=== PATIENT | female | born 1980 | race Caucasian/White ===

== ENCOUNTER 2018-06-07 19:30 | Emergency (ER) | payer BC, SELFPAY ==
[2018-06-07] VITALS (38 sets, daily range): BP systolic 114–141; BP diastolic 67–93; PULSE 70–91; RESP 10–25; TEMP 36.7; O2SAT 95–100
[2018-06-07] MEDS: Normal Saline 1,000 ML 1000 ML IV (20:20)
[2018-06-07] MEDS: Ondansetron 4 MG/2 ML VIAL IVP (20:20)
[2018-06-07] MEDS: MORPHine 10 MG/ML VIAL 4 MG IVP (20:20)
[2018-06-07 20:36] LABS: Abs Immature Grans 0.03 k/cumm (0.0-0.09); Absolute Basophil Count 0.03 k/cumm (0.0-0.2); Absolute Eosinophil Count 0.11 k/cumm (0.0-0.7); Absolute Lymphocyte Count 2.52 k/cumm (1.2-3.4); Absolute Monocyte Count 0.72 k/cumm (0.11-0.7); Absolute Neutrophil Count 6.68 k/cumm (1.2-6.7); Basophils % 0.3; Eosinophils % 1.1; HCT 36.4 % (36.0-46.0); HGB 13.1 g/dL (12.0-15.5); Immature Grans % 0.3; Mean Corpuscular Volume 86.3 fL (80-95); Mean Platelet Volume 11.3 fL (8.0-11.0); Monocytes % 7.1; Neutrophils % 66.2; Platelet Count 264 x1000/uL (130-400); RBC 4.22 m/cumm (4.00-5.20); White Blood Cell Count 10.09 k/cumm (4.4-10.8)
[2018-06-07 20:38] LABS: Bilirubin Negative (Negative); Blood Negative (Negative); Clarity Clear; Glucose Negative (Negative); Ketones Negative (Negative); Leukocyte Esterase Negative (Negative); Nitrite Negative (Negative); Specific Gravity >= 1.030 (1.005-1.025); Urobilinogen 0.2 EU/dL (Up TO 0.2); pH 5.5 (5-8)
[2018-06-07 20:52] LABS: ALT 25 U/L (12-78); AST 17 U/L (15-37); Albumin 3.9 g/dL (3.4-5.0); Alkaline Phosphatase 77 U/L (46-116); Anion Gap 13.3 mmol/L (3-11); BUN 15 mg/dL (7-18); Bilirubin, Total 0.3 mg/dL (0.2-1.0); CO2 22.7 mmol/L (21.0-32.0); CREATININE 0.61 mg/dL (0.55-1.02); Chloride 103 mmol/L (98-107); Glucose 114 mg/dL (70-100); Lipase 135 U/L (73-393); Magnesium 1.6 mg/dL (1.8-2.4); Potassium 3.4 mmol/L (3.5-5.1); Sodium 139 mmol/L (136-145); Total Protein 7.4 g/dL (6.4-8.2)
--- NOTE | 2018-06-07 21:00 | DI.CT_ITS ---
SYMPTOMS/DIAGNOSIS: ABDOMINAL PAIN ABDOMINAL AND PELVIC CT: CT examination of the abdomen and pelvis was performed with intravenous infusion of 100 cc of Omnipaque 350. Images obtained through the lung bases are unremarkable. Liver, spleen and pancreas appear normal. Gallbladder and bile ducts are CT normal. Abdominal aorta is of normal diameter and no major vascular abnormalities seen. No abdominal or pelvic adenopathy seen. There is a small fat-containing umbilical hernia. No other abdominal wall hernia seen. Appendix is normal in appearance. No evidence of diverticulitis or bowel obstruction. Adrenals and kidneys appear normal. No evidence of urinary tract calcification or obstruction. There is an IUD in place in the uterine midline. There is a moderate quantity of free pelvic fluid, which is nonspecific. CONCLUSION: Free pelvic fluid, which is nonspecific. Consider recently ruptured ovarian cyst, pelvic ultrasound may be obtained if clinically indicated.
[2018-06-07] MEDS: Omnipaque 350 MG/ML 100 ML BTL IJ (21:03)
--- NOTE | 2018-06-07 21:10 | DI.RAD_ITS ---
SYMPTOMS/DIAGNOSIS: CHEST PAIN PA AND LATERAL CHEST: The heart is normal in size. The lungs are clear. The mediastinal structures and pleura appear intact. CONCLUSION: Normal chest.
[2018-06-07 21:31] LABS: Troponin I < 0.02 ng/mL (0.00-0.06)
--- NOTE | 2018-06-07 21:37 | DI.VRAD_ITS ---
EXAM: CT Abdomen and Pelvis With Intravenous Contrast EXAM DATE/TIME: 06/07/2018 8:02 PM CLINICAL HISTORY: 37 years old, female; Pain; Abdominal pain; Generalized; Patient HX: Abdominal pain x2 hours. TECHNIQUE: Axial computed tomography images of the abdomen and pelvis with intravenous contrast. All CT scans at this facility use at least one of these dose optimization techniques: automated exposure control; mA and/or kV adjustment per patient size (includes targeted exams where dose is matched to clinical indication); or iterative reconstruction. Coronal and sagittal reformatted images were created and reviewed. CONTRAST: 100 ml of omnipaque 350 administered intravenously. COMPARISON: No relevant prior studies available. FINDINGS: Lower thorax: No acute findings. ABDOMEN: Liver: Enlarged liver measures 21.4 cm in craniocaudal dimensions. Gallbladder and bile ducts: No calcified stones. No ductal dilation. Pancreas: Unremarkable. No ductal dilation. Spleen: Unremarkable. No splenomegaly. Adrenals: Unremarkable. No mass. Kidneys and ureters: Unremarkable. No hydronephrosis. Stomach and bowel: Unremarkable. No obstruction. No mucosal thickening. Appendix: No evidence of appendicitis. PELVIS: Bladder: Unremarkable as visualized. Reproductive: IUD in place. ABDOMEN and PELVIS: Intraperitoneal space: Small amount of ascites. Bones/joints: No acute fracture. No dislocation. Soft tissues: Unremarkable. Vasculature: No abdominal aortic aneurysm. Lymph nodes: No enlarged lymph nodes. IMPRESSION: 1. No evidence for bowel obstruction or perforation. Normal appendix. 2. No evidence for colitis or diverticulitis. 3. Small amount of pelvic fluid within physiologic range. 4. IUD in place. Dictated and Authenticated by: Mynor Johnson MD. Ordering:CARLOZ GREEN MD
--- NOTE | 2018-06-07 21:38 | DI.VRAD_ITS ---
EXAM: XR Chest, 2 Views EXAM DATE/TIME: 06/07/2018 8:40 PM CLINICAL HISTORY: 37 years old, female; Pain; Chest pain; Type not specified; Patient HX: Chest pain x2 hours. TECHNIQUE: XR of the chest, 2 views. COMPARISON: No relevant prior studies available. FINDINGS: Lungs: Unremarkable. No consolidation. Pleural space: Mild bilateral apical pleural thickening. Heart/Mediastinum: Unremarkable. No cardiomegaly. Bones/joints: Unremarkable. IMPRESSION: No infiltrates or effusions. Dictated and Authenticated by: Mynor Johnson MD. Ordering:CARLOZ GREEN MD
[2018-06-07] MEDS: Magnesium Oxide 400 MG TAB PO (21:42)
--- NOTE | 2018-06-07 21:42 | ED.GENADUL_ITS ---
Discharge Plan Disposition Patient Disposition: HOME Condition: Stable Discharge Details Chief Complaint: Chest Pain Primary Care Provider: Angelic Silva ED Provider: Diomedes Reardon Home Meds and New Rx's Prescriptions: Continue bupropion HCl [Wellbutrin] 100 MG tablet 100 mg PO DAILY RF: 0 diazepam 2 MG tablet 2 mg PO Q8H PRN (Reason: Dizziness) Qty: 6 RF: 0 Discharge Instructions Instructions: Chest Pain (ED), Abdominal Pain (ED) Additional Instructions: Return immediately to the emergency department for any new or significant worsening of symptoms otherwise take your medication as prescribed and follow- up with your primary care provider for reassessment. Stand Alone Forms: Work Release Referrals: Angelic Silva [Primary Care Provider] - 1 week Discharge Data Discharge Date/Time-TO BE ENTERED AT DEPARTURE: 06/08/18 00:01 Medical Decision Making Patient presenting to the emergency department chief complaint of chest pain that started around 10 AM. She states that she has been under significant emotional work and financial stressors causing her to feel worsening depression. Today though the chest pain has been substernal with a little bit of GI upset. She denies any specific emotional circumstance today that is changed. Patient denies any homicidal or suicidal ideations. Patient appears slightly anxious but otherwise comfortable and in no acute distress. Physical exam does show some lower abdominal tenderness otherwise benign cardiac and respiratory examination and no other acute findings noted. Plan to check labs, EKG, and chest x-ray and abdominal CT scan due to abdominal tenderness and GI upset. Patient given morphine, Zofran, and IV fluids. There is concerned that this is more psychological or emotional in base given the circumstances but plan on ruling out ACS, pneumothorax, any emergent GI pathology. Review of initial labs show mild hypomagnesemia, otherwise nondiagnostic findings, chest x-ray shows no infiltrates or effusions with mild bilateral apical pleural thickening CT of the abdomen shows no evidence of bowel obstruction or perforation normal appendix no evidence for colitis or diverticulitis otherwise no acute finding. Patient reassessed and shows continued discomfort so GI cocktail was given along with p.o. magnesium. Plan to check d-dimer due to patient having IUD but have low suspicion of PE given stable vital signs with no hypoxia no tachycardia no evidence of shortness of breath also plan on checking second troponin. D-dimer was within normal limits and troponin was negative. Patient continued to have discomfort. Patient fully reassessed and did have some diffuse paraspinal tenderness to the back and somewhat to the chest wall but minimal anterior chest wall pain. 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 Due to possible nature of this being muscular patient given ketorolac. Otherwise I feel that there are no current emergent findings that need any further evaluation and that patient should rest over the next couple days, take over-the -counter medication as needed for discomfort, and follow-up with primary care as needed for reassessment if not improving. After discussion of diagnosis and plan of care patient is no further needs, questions, or concerns and states clear understanding to return to the emergency department for any worsening symptoms. ECG Data Attestation: I personally reviewed and interpreted this ECG (s) as follows: Interpretation: EKG shows rate of 75, normal axis, sinus rhythm, no ST elevation or depression noted. EKG otherwise nondiagnostic. EKG reviewed with Dr. Felix Mcnally. HPI General Mode of arrival: ambulatory . Date/Time Provider Initiated Documentation: 06/07/18 19:43 . Limitations to Documentation: no limitations . Information obtained by: patient and RN notes reviewed . History of Present Illness 37 year old F presents to the emergency department with the chief complaint of Chest pain, described as moderate, with intensity rated at 7. Quality is described as aching and other (pressure), and is localized to the chest and abdomen. Patient started experiencing this hour(s) (10) and it has been constant. No relieving factors improve symptom(s), No exacerbating factors reported . Patient did receive the following treatments prior to arrival, none Related Data Home Medications Medication Instructions Recorded Confirmed bupropion HCl [Wellbutrin] 100 mg PO DAILY 09/26/17 09/26/17 diazepam 2 mg PO Q8H PRN #6 tablet 09/26/17 Previous Rx's Medication Instructions Recorded diazepam 2 mg PO Q8H PRN #6 tablet 09/26/17 Allergies Allergy/AdvReac Type Severity Reaction Status Date / Time No Known Allergies Allergy Unverified 09/26/17 11:32 General Stated Complaint: Chest Pain SAMARA: 3 Review of Systems Constitutional Denies chills, Denies fever(s), Denies malaise and Reports poor appetite Cardiovascular Reports as per HPI, Reports chest pain, Denies chest pain with activity, Denies syncope, Denies irregular heart rhythm, Denies palpitations and Denies dyspnea Respiratory Denies dyspnea Gastrointestinal Reports abdominal pain, Reports nausea and Denies vomiting Neurologic Denies syncope Psychiatric Reports anxiety, Reports depression, Denies homicidal ideation and Denies suicidal ideation Endocrine Denies palpitations PFSH Social History Smoking/Tobacco Use Status: Never Social History Smoking/Tobacco Use Status: Never Exam Const General: cooperative, healthy appearing, comfortable, no acute distress, anxious , not diaphoretic and not ill appearing Nutritional Appearance: average body habitus Orientation: alert, awake and oriented x3 Limitations: mental status not altered Neck Neck: normal visual inspection, full ROM, trachea midline, supple and no anterior neck swelling Thyroid: thyroid normal Carotids: normal carotid upstroke and no bruits Chest Chest: normal inspection of the chest Resp Effort & Inspection: normal respiratory effort and able to speak in complete sentences Auscultation: clear to auscultation bilaterally Cardio Jugular venous pressure: no JVD Palpation: normal PMI Rate: regular rate Rhythm: regular rhythm Heart Sounds: S1 normal, S2 normal, no click, no gallops, no murmurs and no rubs Bruits: no abdominal aortic bruits and no carotid bruits Pulses: radial pulses present bilaterally 2+ GI Inspection: normal to inspection Palpation: soft, no aortic enlargement, no pulsatile masses and tender in the LLQ and in the RLQ; not at McBurney's point and Martin's sign negative Auscultation: normal bowel sounds Back/Spine/Pelvis Back: no CVA tenderness Skin General skin exam: no rashes or lesions noted Neuro General: alert, awake, oriented x3, tone normal and moves all extremities Psych Appearance: grossly normal Mental Status: mental status grossly normal Speech and Movement: speech and movement normal Mood: anxious mood (mild) Attitude: cooperative Thought Process: normal Thought Content: no homicidality and suicidality Insight: insight good Judgment: judgment good Course Vital Signs Temperature 36.7 C 06/07/18 19:45 Pulse 74 06/07/18 19:45 Respiratory Rate 24 06/07/18 19:45 Blood Pressure 135/93 H 06/07/18 19:45 Pulse Oximetry 97 06/07/18 19:45 Temperature 36.7 C 06/07/18 19:45 Temperature Source Skin 06/07/18 19:45 Pulse 74 06/07/18 19:45 Respiratory Rate 24 06/07/18 19:45 Respiratory Effort 06/07/18 21:08 Blood Pressure 135/93 H 06/07/18 19:45 Blood Pressure Position Sitting 06/07/18 19:45 Pulse Oximetry 97 06/07/18 19:45 Oxygen Delivery Method Room Air 06/07/18 19:45 Oxygen Flow Rate 0 06/07/18 19:45 Lab/Test Results Lab/Test Results: Laboratory Tests Range/Units 06/07/18 06/07/18 06/07/18 19:48 19:48 20:30 WBC (4.4-10.8) k/cumm 10.09 RBC (4.00-5.20) m/cumm 4.22 Hgb (12.0-15.5) g/dL 13.1 Hct (36.0-46.0) % 36.4 MCV (80-95) fL 86.3 MCH (27.0-33.0) pg 31.0 MCHC (32.0-36.0) g/dL 36.0 RDW (11.7-14.6) % 13.0 Plt Count (130-400) x1000/uL 264 MPV (8.0-11.0) fL 11.3 H Immature Gran % 0.3 Neutrophils % 66.2 Lymphocytes % 25.0 Monocytes % 7.1 Eosinophils % 1.1 Basophils % 0.3 Absolute Neutrophils (1.2-6.7) k/cumm 6.68 Absolute Lymphocytes (1.2-3.4) k/cumm 2.52 Absolute Monocytes (0.11-0.7) k/cumm 0.72 H Absolute Eosinophils (0.0-0.7) k/cumm 0.11 Absolute Basophils (0.0-0.2) k/cumm 0.03 Sodium (136-145) mmol/L 139 Potassium (3.5-5.1) mmol/L 3.4 L Chloride (98-107) mmol/L 103 Carbon Dioxide (21.0-32.0) mmol/L 22.7 Anion Gap (3-11) mmol/L 13.3 H BUN (7-18) mg/dL 15 Creatinine (0.55-1.02) mg/dL 0.61 Estimated GFR/1.73 m2 (mL/min/1.73m2) >= 60.00 Glucose (70-100) mg/dL 114 H Calcium (8.5-10.1) mg/dL 9.0 Magnesium (1.8-2.4) mg/dL 1.6 L Total Bilirubin (0.2-1.0) mg/dL 0.3 AST (15-37) U/L 17 ALT (12-78) U/L 25 Alkaline Phosphatase (46-116) U/L 77 Troponin I (0.00-0.06) ng/mL < 0.02 Total Protein (6.4-8.2) g/dL 7.4 Albumin (3.4-5.0) g/dL 3.9 Lipase (73-393) U/L 135 Urine Color (Yellow) Yellow Urine Clarity Clear Urine pH (5-8) 5.5 Ur Specific [place] (1.005-1.025) >= 1.030 H Urine Protein (Negative) mg/dL Negative Urine Ketones (Negative) mg/dL Negative Urine Blood (Negative) Negative Urine Nitrite (Negative) Negative Urine Bilirubin (Negative) Negative Urine Urobilinogen (Up TO 0.2) EU/dL 0.2 Ur Leukocyte Esterase (Negative) Negative Urine Glucose (Negative) mg/dL Negative POC- Test(urine) Negative
[2018-06-07 22:49] LABS: D-Dimer 177 ng/mlFEU (<500)
[2018-06-07] MEDS: Ketorolac 30 MG/ML VIAL IVP (23:12)
[2018-06-07 23:34] LABS: Troponin I < 0.02 ng/mL (0.00-0.06)
== END 2018-06-08 00:01 | disposition home or self-care (01) ==
PROVIDERS: Emergency Provider Nurse Practitioner Family; PCP Nurse Practitioner Family
DX: R07.9 Chest pain, unspecified (principal)
CPT/HCPCS: 36415; 80053; 83690; 93005; 96361; 96374; 96375; 99285; 71046; 74177; 81003; 83735; 84484; 85025; 85379; 93010; J1885; J2270; J2405; J3490

== ENCOUNTER 2018-06-13 18:14 | Outpatient (REF) | payer BC, SELFPAY | END 2018-06-13 18:34 | LOC: NCHCN 18:14 | PROVIDERS: PCP Nurse Practitioner Family; Visit Provider Nurse Practitioner | DX: E83.42 Hypomagnesemia (principal) | CPT/HCPCS: 83735 ==

== ENCOUNTER 2018-06-26 01:47 | Outpatient (CLI) | payer BC, SELFPAY ==
--- NOTE | 2018-06-26 14:00 | DI.US_ITS ---
SYMPTOMS/DIAGNOSIS: ABD PAIN GENERALIZED, R10.84, HYPOMAGNESEMIA, E83.42 PELVIC ULTRASOUND: A transabdominal and transvaginal examination was carried out. The uterus measures 7.2 cm in length, 3.6 cm in height and 5.0 cm in width with an endometrial stripe thickness of 4.5 mm. An intrauterine IUD is noted in good position. The right ovary measures 3.3 x 1.5 x 2.6 cm. The left ovary 2.5 x 1.7 x 1.9 cm. Bilateral follicular cysts are demonstrated. In addition to the above findings note is made of microcalcifications in the endometrium. SUMMARY: An IUD is in good position in the endometrial cavity. Tiny calcifications are identified in the endometrium. The examination is otherwise unremarkable.
== END 2018-06-26 02:07 ==
PROVIDERS: PCP Nurse Practitioner Family; Visit Provider Nurse Practitioner
DX: R10.84 Generalized abdominal pain (principal); E83.42 Hypomagnesemia; N83.01 Follicular cyst of right ovary; N83.02 Follicular cyst of left ovary; Z30.431 Encounter for routine checking of intrauterine contraceptive device
CPT/HCPCS: 76830; 76856

== ENCOUNTER 2018-07-19 18:04 | Outpatient (REF) | payer BC, SELFPAY ==
--- NOTE | 2018-07-19 16:00 | PAPFT_PTH ---
PATIENT: Yolette Tellez LOC: [facility] U#:[id number] AGE/SX: 37/F ROOM: RE07/19/[address]: Beatriz Bose : 1980 BED: DIS: 07/19/2018 SPEC #: [id number] RECD: 07/20/18 13:06 STATUS: AMIRA REYen #: [id number] SHAYNA: 07/19/18 16:[address]: Beatriz Bose DEPT: [facility] Cytology RECD BY: Yenifer Torres ENTERED: 07/20/18 13:06 SP TYPE: PAPFT OTHR DR: Angelic Silva Tissues: 1 - CX/ENDOCX FOR PAP SMEARS Procedures: PAP THIN PREP/UVM Screening HPV DNA PROBE Comments: [id number] (CHLAMYDIA/GC)
[2018-07-23 13:36] LABS: Chlamydia Result Negative; GC Result Negative; Specimen Description SEE COMMENTS
== END 2018-07-19 18:24 ==
LOC: NCHCN 18:04
PROVIDERS: PCP Nurse Practitioner Family; Visit Provider Nurse Practitioner
DX: Z12.4 Encounter for screening for malignant neoplasm of cervix (principal); Z11.51 Encounter for screening for human papillomavirus (HPV); Z11.3 Encounter for screening for infections with a predominantly sexual mode of transmission
CPT/HCPCS: 87491; 87591; 88142; 87624

== ENCOUNTER 2018-09-06 15:05 | Outpatient (REF) | payer BC, SELFPAY ==
[2018-09-06 21:13] LABS: Abs Immature Grans 0.02 k/cumm (0.0-0.09); Absolute Basophil Count 0.03 k/cumm (0.0-0.2); Absolute Eosinophil Count 0.09 k/cumm (0.0-0.7); Absolute Monocyte Count 0.63 k/cumm (0.11-0.7); Absolute Neutrophil Count 3.44 k/cumm (1.2-6.7); Basophils % 0.5; Eosinophils % 1.5; HCT 38.7 % (36.0-46.0); HGB 13.4 g/dL (12.0-15.5); Immature Grans % 0.3; Lymphocytes % 28.8; Mean Corp. HGB Concentration 34.6 g/dL (32.0-36.0); Mean Corpuscular Hemoglobin 30.7 pg (27.0-33.0); Mean Corpuscular Volume 88.6 fL (80-95); Mean Platelet Volume 11.4 fL (8.0-11.0); Monocytes % 10.7; Neutrophils % 58.2; Platelet Count 258 x1000/uL (130-400); RBC 4.37 m/cumm (4.00-5.20); RBC Distribution Width 13.4 % (11.7-14.6); White Blood Cell Count 5.91 k/cumm (4.4-10.8)
[2018-09-06 21:42] LABS: Iron 83 ug/dL (50-175); Total Iron Binding Capacity 336 ug/dL (250-450); Transferrin Sat 25 % (15-50)
[2018-09-06 21:57] LABS: ESR 14 MM/HR (0-20)
[2018-09-06 22:14] LABS: BUN 16 mg/dL (7-18); CREATININE 0.51 mg/dL (0.55-1.02); Chloride 105 mmol/L (98-107); Cholesterol 181 mg/dL (50-200); Ferritin 84 ng/mL (8-388); Glucose 83 mg/dL (70-100); HDL Cholesterol 40 mg/dL (40-60); LDL CHOLESTEROL 119 mg/dL (<100); Magnesium 2.1 mg/dL (1.8-2.4); Potassium 3.8 mmol/L (3.5-5.1); Sodium 143 mmol/L (136-145); TSH (W/Ref FT4) 1.43 uIU/mL (0.358-3.74); Triglyceride 140 mg/dL (30-150); Vitamin B12 547 pg/mL (193-986)
[2018-09-06 22:29] LABS: C-Reactive Protein 0.35 mg/dL (0.0-0.3)
[2018-09-10 11:32] LABS: ANA Interpretation Negative (NEGAT)
[2018-09-10 11:56] LABS: Rheumatoid Factor <8 IU/mL (<12.5)
== END 2018-09-06 15:25 ==
LOC: NCHCN 15:05
PROVIDERS: PCP Nurse Practitioner Family; Visit Provider Nurse Practitioner Family
DX: Z00.00 Encounter for general adult medical examination without abnormal findings (principal); N92.6 Irregular menstruation, unspecified; R25.2 Cramp and spasm; M25.50 Pain in unspecified joint; K59.00 Constipation, unspecified; M54.9 Dorsalgia, unspecified; G60.8 Other hereditary and idiopathic neuropathies; R53.83 Other fatigue
CPT/HCPCS: 80048; 80061; 83721; 85652; 82607; 82728; 83036; 83540; 83550; 83735; 84443; 85025; 86038; 86140; 86431

== ENCOUNTER 2019-03-12 17:09 | Outpatient (REF) | payer BC, SELFPAY ==
[2019-03-12 22:12] LABS: Anion Gap 8.9 mmol/L (3-11); BUN 15 mg/dL (7-18); C-Reactive Protein 0.29 mg/dL (0.0-0.3); CO2 28.1 mmol/L (21.0-32.0); CREATININE 0.68 mg/dL (0.55-1.02); Calcium 9.1 mg/dL (8.5-10.1); Chloride 104 mmol/L (98-107); Glucose 86 mg/dL (70-100); Magnesium 2.1 mg/dL (1.8-2.4); Potassium 3.7 mmol/L (3.5-5.1); Sodium 141 mmol/L (136-145); TSH (W/Ref FT4) 2.44 uIU/mL (0.36-3.74)
[2019-03-12 22:49] LABS: ESR 21 mm/hr (0-20)
[2019-03-14 10:34] LABS: Lyme Ab w Rflx to Lyme Confirm Negative
[2019-03-14 11:24] LABS: Rheumatoid Factor <8 IU/mL (<12.5)
[2019-03-14 14:46] LABS: ANA Interpretation Negative (NEGAT)
[2019-03-14 19:05] LABS: Creatine Kinase 184 U/L (26 - 192)
[2019-03-16 23:52] LABS: Anaplasma phagocytophilum Negative (Negative); B. miyamotoi PCR Negative (Negative); Babesia divergens/MO-1 Negative (Negative); Babesia duncani Negative (Negative); Babesia microti Negative (Negative); Ehrlichia chaffeensis Negative (Negative); Ehrlichia ewingii/canis Negative (Negative); Ehrlichia muris eauclairensis Negative (Negative)
[2019-03-19 15:43] LABS: BB Fraction 0 % (0); MB Fraction 0 % (0)
== END 2019-03-12 17:29 ==
LOC: NCHCN 17:09
PROVIDERS: PCP Nurse Practitioner Family; Visit Provider Nurse Practitioner Family
DX: G47.33 Obstructive sleep apnea (adult) (pediatric) (principal); R51 Headache; R53.83 Other fatigue; G60.8 Other hereditary and idiopathic neuropathies; R25.2 Cramp and spasm; M25.50 Pain in unspecified joint; F41.8 Other specified anxiety disorders; J34.89 Other specified disorders of nose and nasal sinuses
CPT/HCPCS: 80048; 85652; 87798; 82550; 82552; 83735; 84443; 86038; 86140; 86431; 86618

== ENCOUNTER 2019-04-20 18:33 | Emergency (ER) | payer BC, SELFPAY ==
[2019-04-20 18:43] VITALS: BP 128/80; PULSE 70; RESP 18; TEMP 36.7; O2SAT 99
--- NOTE | 2019-04-20 19:38 | ED.GENADUL_ITS ---
Discharge Plan Disposition Patient Disposition: HOME Discharge Details Chief Complaint: EXHIBIT CLEANER Clinical Impression: Abscess of right genital labia Primary Care Provider: Angelic Silva ED Provider: Nicolas Alvarado Home Meds and New Rx's Prescriptions: No Action bupropion HCl [Wellbutrin] 100 MG tablet 100 mg PO DAILY RF: 0 diazepam 2 MG tablet 2 mg PO Q8H PRN (Reason: Dizziness) Qty: 6 RF: 0 Discharge Instructions Instructions: Abscess (ED) Additional Instructions: Incision and drainage of the fluid in your abscess performed in the emergency department. Small amount of wound packing placed. Continue to apply warm compresses to the area. You may wash with warm soap and water. Return to the emergency department in 2 days for packing removal and reevaluation. Referrals: Nicolas Alvarado PA [Emergency Provider] - 2 days (for wound evaluation) Discharge Data Discharge Date/Time-TO BE ENTERED AT DEPARTURE: 04/20/19 20:25 Medical Decision Making This is a nontoxic-appearing 38-year-old female presenting to the emergency department with a cyst/abscess along the right superior labia. Tenderness to palpation noted on exam. Pointing also noted. I&D performed with mild amount of purulent discharge expressed. Patient tolerated the procedure without any significant complications. Unable to place a significant amount of packing based on the size of the abscess. Plan is to have her return to the emergency department 48 hours for packing removal and wound evaluation. HPI General Date/Time Provider Initiated Documentation: 04/20/19 18:42 . HPI Narrative: Patient is a 38-year-old female with no significant past medical history who presents to the emergency department with a painful swollen lesion on her right labia. She states that symptoms started 1 to 2 days ago. She denies any fevers. No abdominal pain. No vaginal discharge or bleeding. Related Data Home Medications Medication Instructions Recorded Confirmed bupropion HCl [Wellbutrin] 100 mg PO DAILY 09/26/17 04/20/19 diazepam 2 mg PO Q8H PRN #6 tablet 09/26/17 04/20/19 Previous Rx's Medication Instructions Recorded diazepam 2 mg PO Q8H PRN #6 tablet 09/26/17 Allergies Allergy/AdvReac Type Severity Reaction Status Date / Time No Known Allergies Allergy Unverified 04/20/19 18:45 General Stated Complaint: RashLesion SAMARA: 4 Review of Systems Constitutional Constitutional: Denies chills and Denies fever(s) Gastrointestinal Gastrointestinal: Denies abdominal pain and Denies vomiting Genitourinary Genitourinary: Denies abnormal vaginal bleeding, Denies genital pruritis, Reports genital lesions, Denies dysuria, Denies pelvic pain and Denies vaginal discharge [facility] Social History Smoking/Tobacco Use Status: Never Alcohol Intake: never Drug use: Never Substance use type: does not use Do you feel safe at home: Yes Do you feel safe in your relationship?: Yes Exam Const General: cooperative, healthy appearing, comfortable and no acute distress Resp Effort & Inspection: normal respiratory effort GI Inspection: normal to inspection Palpation: soft and nontender External Female Exam: other (Roughly 2 to 3 cm fluctuant abscess along the superior right labia. ) Course Vital Signs Vital signs: Vital Signs Temperature 36.7 C 04/20/19 18:43 Pulse 70 04/20/19 18:43 Respiratory Rate 18 04/20/19 18:43 Blood Pressure 128/80 04/20/19 18:43 Pulse Oximetry 99 04/20/19 18:43 Temperature 36.7 C 04/20/19 18:43 Temperature Source Skin 04/20/19 18:43 Pulse 70 04/20/19 18:43 Respiratory Rate 18 04/20/19 18:43 Respiratory Effort 04/20/19 18:50 Blood Pressure 128/80 04/20/19 18:43 Blood Pressure Position Sitting 04/20/19 18:43 Pulse Oximetry 99 04/20/19 18:43 Pain Level 10 04/20/19 18:43 Procedures Abscess I/D Site: Other (right labia) Side (if applicable): Right Local Anesthetic: Lidocaine 2% Amount of anesthesia used (mL): 3 Technique: Incised with #11 Blade Amount of fluid expressed (mL): 3 Irrigation: No Packing used?: Iodoform Complications: Bleeding
--- NOTE | 2019-04-20 19:57 | NUR.NOTE ---
Nursing Note: assist provider with external vaginal exam and I&D of abcess. pt tolerated well.
== END 2019-04-20 20:25 | disposition home or self-care (01) ==
PROVIDERS: Emergency Provider Physician Assistant; PCP Nurse Practitioner Family
DX: N76.4 Abscess of vulva (principal)
CPT/HCPCS: 10061

== ENCOUNTER 2019-07-18 14:04 | Emergency (ER) | payer BC, SELFPAY ==
[2019-07-18 14:08] VITALS: BP 136/89; PULSE 78; RESP 20; TEMP 36.7; O2SAT 100
--- NOTE | 2019-07-18 14:26 | W.ED.GENAD ---
Discharge Plan Disposition Patient Disposition: HOME Condition: Stable Discharge Details Chief Complaint: PsychEval Clinical Impression: Depression Primary Care Provider: Angelic Silva ED Provider: Elliott Whitaker Home Meds and New Rx's Prescriptions: Continued bupropion HCl [Wellbutrin] 100 MG tablet 100 mg PO DAILY RF: 0 diazepam 2 MG tablet 2 mg PO Q8H PRN (Reason: Dizziness) Qty: 6 RF: 0 Discharge Instructions Instructions: Depression (ED) Medical Decision Making 38 yo female with hx of depression who has had increased depression over the past few months with vague SI without a plan and no attempts to harm her self. Denies alcohol or drug use. She is caox4 and has clear speech, normal gait, no neuro deficits. Has no findings on exam or hx to suggest underlying medical process such as infection or endocrine process as cause of her depression. Will have mental health evaluate, medically cleared to see mental health mental health evaluated and feels she is safe for d/c, pt and family is comfortable with this plan. Differential Diagnosis Differential Diagnosis: depression, si Lab Data Lab results reviewed: Yes I reviewed the patient's lab results. HPI General Mode of arrival: ambulatory. Date/Time Provider Initiated Documentation: 07/18/19 14:13. Limitations to Documentation: no limitations. Information obtained by: patient. History of Present Illness 38 year old F presents to the emergency department with the chief complaint of depression, described as moderate, and it has been constant. No relieving factors improve symptom(s), No exacerbating factors reported . Patient did receive the following treatments prior to arrival, none Related Data Home Medications Medication Instructions Recorded Confirmed bupropion HCl [Wellbutrin] 100 mg PO DAILY 09/26/17 07/18/19 diazepam 2 mg PO Q8H PRN #6 tablet 09/26/17 04/20/19 Previous Rx's Medication Instructions Recorded diazepam 2 mg PO Q8H PRN #6 tablet 09/26/17 Allergies Allergy/AdvReac Type Severity Reaction Status Date / Time No Known Allergies Allergy Unverified 07/18/19 14:11 General Stated Complaint: PsychEval SAMARA: 2 Review of Systems All systems reviewed & are unremarkable except as noted in HPI and below Constitutional Constitutional: Denies chills, Denies fever(s) and Denies weakness Cardiovascular Cardiovascular: Denies chest pain and Denies dyspnea Respiratory Respiratory: Denies cough and Denies dyspnea Gastrointestinal Gastrointestinal: Denies abdominal pain, Denies nausea and Denies vomiting Musculoskeletal Musculoskeletal: Denies joint swelling Neurologic Neurologic: Denies weakness [facility] Social History Smoking/Tobacco Use Status: Never Alcohol Intake: never Drug use: Never Substance use type: does not use Do you feel safe at home: Yes Do you feel safe in your relationship?: Yes Exam Const General: no acute distress Orientation: alert HENMT Head: normal to inspection Ears: external ears normal General nose exam: external nose normal Mouth: moist mucous membranes Eyes General: appearance normal, both eyes and all related structures Neck Neck: normal visual inspection Resp Effort & Inspection: normal respiratory effort and able to speak in complete sentences Cardio Rate: regular rate Skin General skin exam: no rashes or lesions noted Neuro General: alert and oriented x3 Extrem General: normal to inspection Psych Mental Status: mental status grossly normal Course Vital Signs Vital signs: Vital Signs Temperature 36.7 C 07/18/19 14:08 Pulse 78 07/18/19 14:08 Respiratory Rate 07/18/19 14:08 Blood Pressure 136/89 07/18/19 14:08 Pulse Oximetry 100 07/18/19 14:08 Temperature 36.7 C 07/18/19 14:08 Temperature Source Temporal Artery Scan 07/18/19 14:08 Pulse 78 07/18/19 14:08 Respiratory Rate 07/18/19 14:08 Respiratory Effort Non-Labored 07/18/19 14:12 Blood Pressure 136/89 07/18/19 14:08 Blood Pressure Position Sitting 07/18/19 14:08 Pulse Oximetry 100 07/18/19 14:08 Oxygen Delivery Method Room Air 07/18/19 14:08 Oxygen Flow Rate 0 07/18/19 14:08 Pain Level 8 07/18/19 14:08
[2019-07-18 14:45] LABS: Abs Immature Grans 0.03 k/cumm (0.0-0.09); Absolute Basophil Count 0.02 k/cumm (0.0-0.2); Absolute Eosinophil Count 0.03 k/cumm (0.0-0.7); Absolute Lymphocyte Count 1.18 k/cumm (1.2-3.4); Absolute Monocyte Count 0.57 k/cumm (0.11-0.7); Absolute Neutrophil Count 7.94 k/cumm (1.2-6.7); Basophils % 0.2; Eosinophils % 0.3; HCT 38.6 % (36.0-46.0); HGB 13.6 g/dL (12.0-15.5); Immature Grans % 0.3 %; Lymphocytes % 12.1; Mean Corp. HGB Concentration 35.2 g/dL (32.0-36.0); Mean Corpuscular Hemoglobin 30.9 pg (27.0-33.0); Mean Corpuscular Volume 87.7 fL (80-95); Mean Platelet Volume 10.2 fL (8.0-11.0); Monocytes % 5.8; Neutrophils % 81.3; Platelet Count 280 x1000/uL (130-400); RBC Distribution Width 12.9 % (11.7-14.6); White Blood Cell Count 9.77 k/cumm (4.4-10.8)
[2019-07-18 14:51] LABS: Bilirubin Negative (Negative); Blood Negative (Negative); Clarity Clear (Clear); Glucose Negative (Negative); Ketones Negative (Negative); Leukocyte Esterase Negative (Negative); Nitrite Negative (Negative); Urobilinogen 0.2 EU/dL (Up TO 0.2); pH 7.5 (5-8)
[2019-07-18 14:56] LABS: ALT 22 U/L (14-59); AST 18 U/L (15-37); Albumin 4.1 g/dL (3.4-5.0); Alkaline Phosphatase 76 U/L (46-116); Anion Gap 8.9 mmol/L (3-11); BUN 12 mg/dL (7-18); Bilirubin, Total 0.4 mg/dL (0.2-1.0); CO2 29.1 mmol/L (21.0-32.0); CREATININE 0.49 mg/dL (0.55-1.02); Calcium 9.3 mg/dL (8.5-10.1); Chloride 105 mmol/L (98-107); Glucose 103 mg/dL (74-106); Potassium 3.7 mmol/L (3.5-5.1); Sodium 143 mmol/L (136-145); Total Protein 7.6 g/dL (6.4-8.2)
[2019-07-18 15:06] LABS: TSH (W/Ref FT4) 1.41 uIU/mL (0.36-3.74)
[2019-07-18 15:14] LABS: ETHANOL BLOOD < 3.0 mg/dL (<3); Salicylate < 2.8 mg/dL (2.8-20.0)
[2019-07-18 15:18] LABS: *AMPHETAMINES SCREEN URINE Negative (Negative); *BARBITURATES SCREEN URINE Negative (Negative); *BENZODIAZEPINES SCREEN URINE Negative (Negative); Cannabinoids THC Negative (Negative); Cocaine Screen,Urine Negative (Negative); METHADONE URINE SCREEN Negative (Negative); OPIATES URINE SCREEN Negative (Negative)
[2019-07-18 15:20] LABS: Acetaminophen < 2 ug/mL (10-30)
[2019-07-18 15:44] LABS: Tricyclic Antidepressants Negative (Negative)
--- NOTE | 2019-07-18 16:42 | NUR.NOTE ---
1630-[facility] cancelled by Dr Whitaker Nursing Note:
[2019-07-18] MEDS: Acetaminophen 500 MG TAB 1000 MG PO (17:00)
--- NOTE | 2019-07-18 17:18 | NUR.NOTE ---
patient received discharge and follow up instruction, patient discharged home with family Nursing Note:
--- NOTE | 2019-07-18 17:32 | PDOC.MHCN ---
Date of service: 07/18/19 Time of Service: 17:32 Mental Health Crisis Note Presenting Issue How did you arrive at the ED and why did you come: Hernan arrived to the ER by herself or possibly with her for evaluation. Precipitating Factors E stated that she is having SI but denied plan stating there are many ways to do it but not that I would do. Disposition BEHAVIOR: Hernan is cooperative and engaged in the assessment. She is a non behavior Pt. E is very tearful when her family arrive in her room. EYE CONTACT: Eye contact is normal and tearful at times. MOOD: E appears stressed and depressed. AFFECT: Her affect is normal considering all that shse is going through. APPETITE: E reports that she is overeating. SLEEP(trouble falling/staying asleep: E reported poor sleep. Plan Hernan does not meet criteria for hospitalization so will go home with her parents to stay with her. I will do an in house referral for support in accessing resources. She will outreach should her SI change or she just needs someone to talk to. She will continue with her PCP, blood bank specialist, and therapist. Provisional Diagnosis Adjustment d/o unspecified. Signature Clinician's Name/Title: Kelli Winters MS Emergency Services Clinician
== END 2019-07-18 17:18 | disposition home or self-care (01) ==
PROVIDERS: Emergency Provider Emergency Medicine; PCP Nurse Practitioner Family
DX: F32.9 Major depressive disorder, single episode, unspecified (principal); R45.851 Suicidal ideations
CPT/HCPCS: 36415; 80053; 80307; 81025; 99283; 80320; 80329; 81003; 84443; 85025

== ENCOUNTER 2020-07-06 15:53 | Outpatient (REF) | payer BC, SELFPAY ==
--- OUTSIDE RECORDS SUMMARY | 2020-07-06 15:56 | XMS_ITS ---
:1980 Author Care Team Providers Name Role Phone ERIN H [facility] LIAISON Primary Care Provider [phone] [facility] MEDICAL RECORDS Primary Care Provider [phone] KATHY POWERS MD Neurologist [phone] Allergies Code Code System Name Reaction Severity Status Onset NKDA ? Medications Name Status Start Date Stop Date ? ? bupropion HCl 150 mg tablet,12 hr sustained-release(smoking dete rrent) Active ? Not available Take 1 tablet every day by oral route. Claritin 10 mg tablet Completed ? 08/19/2019 Take 1 tablet every day by oral route. escitalopram 20 mg tablet Active ? Not av ailable Take 1 tablet every day by oral route. Flonase Allergy Relief 50 mcg/actuation nasal spray,suspension A ctive ? Not available [place] 1 spray twice a day by intranasal route. Glucosamine 1500 Complex 500 mg-400 mg capsule Active ? Not available Take 1 capsule every day by oral route. loratadine 10 mg capsule Active ? Not daniel ilable Take by oral route. Metamucil 0.52 gram capsule Active ? Not available Take 1 capsule every day by oral route. Miralax 17 gram oral powder packet Completed ? 08/19/2019 Take 1 packet every day by oral route. Mirena 20 mcg/24 hours (6 yrs) 52 mg intrauterine device Active ? Not available Take by intrauterine route. montelukast 10 mg tablet Active ? Not daniel ilable Take 1 tablet every day by oral route. multivitamin Active ? Not available 1 tab daily omeprazole 20 mg delayed release,disintegrating tablet Active ? Not available Take by oral route. Vitamin D3 25 mcg (1,000 unit) tablet Active ? Not available Take 1 tablet every day by oral route. water (bulk) liquid Active ? Not availabl e Distilled water for CPAP machine. Dispense 3 gallons per month zolpidem 5 mg tablet Completed ? 08/19/2019 Take 1-2 AIMEE for sleep study PRN Problems Name Status Onset Date Source ? Mixed Anxiety and Depressive Disorder Active 10/26/2018 ? Congestion of Nasal Sinus Active 10/26/2018 ? Constipation Active 10/26/2018 ? Irregular Periods Active 10/26/2018 ? Chronic Back Pain Active 10/26/2018 ? Fatigue Active 10/26/2018 ? Headache Active 10/26/2018 ? Family History of Diabetes Mellitus Active 10/26/2018 ? 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 Snoring Active 11/01/2018 ? Hypersomnia Active 02/21/2019 ? Obstructive Sleep Apnea Syndrome Active ? ? Procedures Date Name Performed by ? 11/01/2018 Polysomnogram Information not avai lable 11/05/2019 Multiple Sleep Latency Information not a vailable Results Lab Results Date Name Specimen Result Interpretation Description Value Range Status Address ? 05/24/2020 Drug UR ? Thc negative neg (50 Final [place] Screen, NG/mL NG/mL) Hospital Lab Urine NG/mL (Internal) : [address] ? ? UR ? Pcp negative neg (25 Final [place] NG/mL) Hospital L ab (Internal) : [address] ? ? UR ? Alan negative neg (150 Final [place] NG/mL) Hospital L ab (Internal) : [address] ? ? UR ? Met negative neg (500 Final [place] NG/mL) Hospital L ab (Internal) : [address] ? ? UR ? Opi negative neg (100 Final [place] NG/mL) Hospital L ab (Internal) : [address] ? ? UR ? Amp negative neg (500 Final [place] NG/mL) Hospital L ab (Internal) : [address] ? ? UR ? Bzo negative neg (150 Final [place] NG/mL) Hospital L ab (Internal) : [address] ? ? UR ? Tca negative neg (300 Final [place] NG/mL) Hospital L ab (Internal) : [address] ? ? UR ? Mtd negative neg (200 Final [place] NG/mL) Hospital L ab (Internal) : [address] ? ? UR ? Bar negative neg (200 Final [place] NG/mL) Hospital L ab (Internal) : [address] ? ? UR ? Oxy negative neg (100 Final [place] NG/mL) [facility] ab (Internal) : [address] ? ? UR ? Ppx negative neg (300 Final [place] NG/mL) [facility] (Internal) : [address] ? ? UR ? Bup negative neg (10 Final [place] NG/mL) [facility] (Internal) : [address] Past Encounters 11/05/2019 Obstructive Sleep Apnea Syndrome; Hypers omnia Radha Chanel, INSPECTOR FIREARMS: [address] [place] [phone], Ph. 08/19/2019 Obstructive Sleep Apnea Syndrome Radha Chanel INSPECTOR [employer]: [address] [place] [phone], Ph. 02/21/2019 Obstructive Sleep Apnea Syndrome; Hypers jody Chanel INSPECTOR [employer]: [address] [place] [phone], Ph. Social History Tobacco Smoking Status Never Smoker Vaccine List None recorded. Plan of Care Reminders Provider Appointments None ? ? recorded. Lab None ? ? recorded. Referral None ? ? recorded. Procedures None ? ? recorded. Surgeries None ? ? recorded. Imaging None ? ? recorded. Vitals 11/05/2019 11:15AM Office 30 Height Weight BMI 172.72 cm 88.45 kg 29.6 kg/m2 08/19/2019 01:45PM Office 30 Height Weight BMI Blood Pressure 172.72 cm 89.27 kg 29.9 kg/m2 130/74 mm[Hg] 02/21/2019 04:00PM Office 30 Height Weight BMI Blood Pressure 172.72 cm 81.28 kg 27.2 kg/m2 110/60 mm[Hg] 11/01/2018 03:30PM New Patient 45 Height Weight BMI Blood Pressure 172.72 cm 79.7 kg 26.7 kg/m2 108/78 mm[Hg]
[2020-07-06 21:18] LABS: CREATININE 0.65 mg/dL (0.55-1.02); Magnesium 2.1 mg/dL (1.8-2.4); Vitamin B12 1678 pg/mL (193-986)
== END 2020-07-06 16:13 ==
LOC: NCHCN 15:53
PROVIDERS: PCP Nurse Practitioner Family; Visit Provider Nurse Practitioner Family
DX: R53.83 Other fatigue (principal); R51.9 Headache, unspecified; Q79.60 Ehlers-Danlos syndrome, unspecified; E66.9 Obesity, unspecified; K30 Functional dyspepsia; K59.00 Constipation, unspecified; G47.33 Obstructive sleep apnea (adult) (pediatric); G47.419 Narcolepsy without cataplexy
CPT/HCPCS: 82565; 82607; 83735

== ENCOUNTER 2022-01-25 15:43 | Outpatient (REF) | payer BC, SELFPAY ==
[2022-01-25 20:01] LABS: Hemoglobin A1C 5.4 % (<5.7)
[2022-01-25 20:24] LABS: Calculated LDL 100 mg/dL (<100); Cholesterol 193 mg/dL (<200); HDL Cholesterol 38 mg/dL (40-60); Magnesium 1.7 mg/dL (1.8-2.4); TSH (W/Ref FT4) 1.71 uIU/mL (0.36-3.74); Triglyceride 277 mg/dL (<150); Vitamin B12 493 pg/mL (193-986)
== END 2022-01-25 15:44 | disposition home or self-care (01) ==
LOC: NCHCN 15:43
PROVIDERS: PCP Nurse Practitioner Family; Visit Provider Nurse Practitioner Family
DX: R53.83 Other fatigue (principal); I89.0 Lymphedema, not elsewhere classified; K30 Functional dyspepsia; G47.419 Narcolepsy without cataplexy; G47.33 Obstructive sleep apnea (adult) (pediatric); M25.59 Pain in other specified joint; E66.9 Obesity, unspecified; N39.3 Stress incontinence (female) (male); Z13.1 Encounter for screening for diabetes mellitus
CPT/HCPCS: 80061; 82607; 83036; 83735; 84443

== ENCOUNTER 2022-11-18 16:53 | Outpatient (REF) | payer BC, SELFPAY ==
[2022-11-18 20:52] LABS: Abs Immature Grans 0.04 10^3/uL (0.0-0.06); Absolute Basophil Count 0.06 10^3/uL (0.0-0.2); Absolute Eosinophil Count 0.09 10^3/uL (0.0-0.7); Absolute Lymphocyte Count 2.31 10^3/uL (1.2-3.4); Absolute Neutrophil Count 5.88 10^3/uL (1.2-6.7); Basophils % 0.7; HGB 12.8 g/dL (11.2-15.7); Immature Grans % 0.4; Lymphocytes % 25.4; MCH 30.5 pg (27.0-33.0); MCHC 34.6 % (32.0-36.0); MCV 88 fL (80-95); MPV 11.2 fL (8.0-11.0); Monocytes % 7.7; Neutrophils % 64.8; Platelet Count 311 10^3/uL (130-400); RDW 12.9 % (11.7-14.6); RDW-SD 41.5 fL; WBC 9.08 10^3/uL (4.4-10.8)
[2022-11-18 21:29] LABS: ALT 71 U/L (14-59); AST 21 U/L (15-37); Alkaline Phosphatase 105 U/L (46-116); Anion Gap 12.1 mmol/L (3-11); BUN 14 mg/dL (7-18); Bilirubin, Total 0.3 mg/dL (0.2-1.0); CO2 25.9 mmol/L (21.0-32.0); CREATININE 0.7 mg/dL (0.55-1.02); Calcium 9.1 mg/dL (8.5-10.1); Chloride 103 mmol/L (98-107); Estimated GFR 111.36 (mL/min/1.73m2); Glucose 120 mg/dL (74-106); Magnesium 1.8 mg/dL (1.8-2.4); Potassium 3.9 mmol/L (3.5-5.1); Sodium 141 mmol/L (136-145); TSH (W/Ref FT4) 0.81 uIU/mL (0.36-3.74); Total Protein 7.2 g/dL (6.4-8.2); Vitamin B12 473 pg/mL (193-986)
== END 2022-11-18 16:54 | disposition home or self-care (01) ==
LOC: NCHCN 16:53
PROVIDERS: PCP Nurse Practitioner Family; Visit Provider Nurse Practitioner Family
DX: I10 Essential (primary) hypertension (principal); R60.0 Localized edema; R53.83 Other fatigue; G44.229 Chronic tension-type headache, not intractable; R42 Dizziness and giddiness; F39 Unspecified mood [affective] disorder; G47.33 Obstructive sleep apnea (adult) (pediatric); M25.50 Pain in unspecified joint; Z86.39 Personal history of other endocrine, nutritional and metabolic disease
CPT/HCPCS: 80053; 82607; 83735; 84443; 85025

== ENCOUNTER 2022-11-23 15:56 | Outpatient (REF) | payer BC, MEDICAID, SELFPAY ==
[2022-11-25 10:14] LABS: Hepatitis A Antibody IgM Negative (Negative); Hepatitis B Core Antibody Negative (Negative); Hepatitis B surface Ag Negative (Negative); Hepatitis C Ab w Rflx HCV PCR Negative (Negative)
== END 2022-11-23 15:57 | disposition home or self-care (01) ==
LOC: NCHCN 15:56
PROVIDERS: PCP Nurse Practitioner Family; Visit Provider Nurse Practitioner Family
DX: R79.89 Other specified abnormal findings of blood chemistry (principal)
CPT/HCPCS: 86704; 86709; 86803; 87340

== ENCOUNTER 2023-02-16 18:42 | Outpatient (REF) | payer BC, MEDICAID, SELFPAY ==
[2023-02-16 17:00] LABS: BUN 15 mg/dL (7-18); CREATININE 0.5 mg/dL (0.55-1.02); Calcium 9.7 mg/dL (8.5-10.1); Chloride 104 mmol/L (98-107); Estimated GFR 120.77 (mL/min/1.73m2); Glucose 82 mg/dL (74-106); Potassium 4.1 mmol/L (3.5-5.1); Sodium 140 mmol/L (136-145)
== END 2023-02-16 18:43 | disposition home or self-care (01) ==
LOC: NCHCN 18:42
PROVIDERS: PCP Nurse Practitioner Family; Visit Provider Nurse Practitioner Family
DX: I10 Essential (primary) hypertension (principal); R79.89 Other specified abnormal findings of blood chemistry; K30 Functional dyspepsia; F41.8 Other specified anxiety disorders
CPT/HCPCS: 80048

== ENCOUNTER 2023-11-29 15:57 | Outpatient (REF) | payer BC, MEDICAID, SELFPAY ==
[2023-11-29 21:02] LABS: Anion Gap 9.3 mmol/L (3-11); BUN 16 mg/dL (7-18); CO2 27.7 mmol/L (21.0-32.0); CREATININE 0.6 mg/dL (0.55-1.02); Calcium 9.3 mg/dL (8.5-10.1); Chloride 102 mmol/L (98-107); Estimated GFR 114.86 (mL/min/1.73m2); Glucose 108 mg/dL (74-106); Potassium 3.9 mmol/L (3.5-5.1); Sodium 139 mmol/L (136-145)
== END 2023-11-29 15:58 | disposition home or self-care (01) ==
LOC: NCHCN 15:57
PROVIDERS: PCP Nurse Practitioner Family; Visit Provider Nurse Practitioner Family
DX: I10 Essential (primary) hypertension (principal)
CPT/HCPCS: 80048

== ENCOUNTER 2024-01-26 12:26 | Outpatient (REF) | payer BC, SELFPAY ==
--- NOTE | 2024-01-26 10:45 | PAPFT_PTH ---
PATIENT: Yolette Tellez LOC: [facility]#:[id number] AGE/SX: 43/F ROOM: RE01/26/[address]: Angelic Silva : 1980 BED: DIS: 01/26/2024 SPEC #: [id number] RECD: 01/26/24 17:27 STATUS: AMIRA REYen #: [id number] SHAYNA: 01/26/24 10:[address]: Angelic Silva DEPT: [facility] Cytology RECD BY: Yenifer Torres Tissues: 1 - CX/ENDOCX FOR PAP SMEARS Procedures: PAP THIN PREP/UVM Screening HPV DNA PROBE Comments: [id number] (HPV 16 & 18/45) (CHLAMYDIA/GC)
--- OUTSIDE RECORDS SUMMARY | 2024-01-26 12:50 | XMS_ITS ---
Author Organization Unknown Address [address] [place] [phone] Phone Care Team Providers Care Media Monitor Name Role Phone VALERIO BALES Registered Nurse UnavailAbeba Schwartz Attending Unavailable FANI Bauer ER Unavailable VIRGEN Gutierrez Primary Unavailable UNLISTED PROVIDER - REQUESTED Xhandoff Un available Results TSH THYROID STIMULATING HORM ONE* - Collect Date/Time: 01/12/2022 14:00 [facility] ID: [id number] [address] [place] [address], [address] LOINC: 3014-8 Test Value Unit Reference Range Code Code System Flag TSH 1.224 uIU/mL L=0.360 H=3.740 3014-8 LOINC SALICYLATE SERUM* - Collect Date/Time: 01/12/2022 14:00 [facility] ID: [id number] [address] [place] [address], [address] LOINC: 4024-6 Test Value Unit Reference Range Code Code System Flag SALICYLATE < 2.8 mg/dL L=15.0 H=30.0 4024-6 LOINC L COMPREHENSIVE METABOLIC PANE L (CMP) - Collect Date/Time: 01/12/2022 14:00 [facility] ID: [id number] [address] [place] [address], [address] LOINC: 43835-3 Test Value Unit Reference Range Code Code System Flag GLUCOSE 91 mg/dL L=70 H=116 2345-7 LOINC BUN 13 mg/dL L=6 H=25 3094-0 LOINC CREATININE 0.56 mg/dL L=0.51 H=0.95 2160-0 LOINC SODIUM SERUM 138 mmol/L L=136 H=145 2951-2 LOINC POTASSIUM SERUM 3.7 mmol/L L=3.4 H=5.2 2823-3 LOINC CHLORIDE SERUM 102 mmol/L L=96 H=110 2075-0 LOINC CARBON DIOXIDE (CO2) 27 mmol/L L=22 H=34 2028-9 LOINC ANION GAP 9.4 mmol/L 27808-0 LOINC CALCIUM SERUM 9.1 mg/dL L=8.2 H=10.2 46814-0 LOINC BILIRUBIN TOTAL 0.4 mg/dL L=0.0 H=1.3 1975-2 LOINC ALK. PHOS. 90 U/L L=46 H=116 6768-6 LOINC SGOT (AST) 21 U/L L=15 H=37 1920-8 LOINC SGPT (ALT) 39 U/L L=12 H=78 1742-6 LOINC TOTAL PROTEIN 7.3 gm/dL L=6.0 H=8.0 2885-2 LOINC ALBUMIN 3.9 gm/dL L=3.4 H=5.0 1751-7 LOINC AGE 41 years eGFR (non-Afr.Amer.) 120 mL/min 17935-6 LOINC eGFR (Afr-Thai) > 120 mL/min 25878-0 LOINC CBC W/ DIFFERENTIAL* - Colle ct Date/Time: 01/12/2022 14:00 [facility] ID: [id number] [address] [place], [place], [facility] LOINC: 78480-7 Test Value Unit Reference Range Code Code System Flag WBC 7.73 th/cmm L=5.00 H=10.00 6690-2 LOINC NEUT % 68.1 % L=40.0 H=80.0 LYMPH % 21.6 % L=10.0 H=50.0 MONO % 8.0 % L=2.0 H=12.0 71149-7 LOINC EOS % 1.3 % L=0.0 H=8.0 BASO % 0.6 % L=0.0 H=3.0 IG % 0.4 % L=0.0 H=1.1 2514-8 LOINC NRBC % 0.0 % L=0.0 H=0.0 35065-5 LOINC NEUT abs count 5.3 th/cmm L=1.6 H=8.4 751-8 LOINC LYMPH abs count 1.7 th/cmm L=1.5 H=4.0 731-0 LOINC MONO abs count 0.6 th/cmm L=0.2 H=1.0 742-7 LOINC EOS abs count 0.1 th/cmm L=0.0 H=0.5 711-2 LOINC BASO abs count 0.1 th/cmm L=0.0 H=0.2 704-7 LOINC IG abs count 0.0 th/cmm L=0.0 H=0.1 76708-2 LOINC NRBC abs count 0.0 mil/cmm L=0.0 H=0.0 69333-9 LOINC RBC 4.33 mil/cmm L=3.90 H=5.40 789-8 LOINC HEMOGLOBIN 13.0 gm/dL L=12.0 H=16.0 718-7 LOINC HEMATOCRIT 38 % L=37 H=47 4544-3 LOINC MCV 87 fL L=82 H=92 787-2 LOINC MCH 30.0 pg L=27.0 H=31.0 785-6 LOINC MCHC 34.4 % L=32.0 H=36.0 786-4 LOINC RDW-SD 40.6 fL L=39.0 H=49.0 788-0 LOINC PLATELET COUNT 269 th/cmm L=150 H=450 777-3 LOINC ALCOHOL (ETHANOL)* - Collect Date/Time: 01/12/2022 14:00 [facility] ID: [id number] [address] [place], [place], [address] LOINC: 00211-6 Test Value Unit Reference Range Code Code System Flag ALCOHOL (ETHANOL) < 3 mg/dL 68619-2 LOINC ACETAMINOPHEN* - Collect Armando e/Time: 01/12/2022 14:00 [facility] ID: [id number] [address] [place], [place], [address] LOINC: 3298-7 Test Value Unit Reference Range Code Code System Flag ACETAMINOPHEN < 2.0 ug/mL L=10.0 H=20.0 3298-7 LOINC L US DVT BILATERAL - Completed : 01/12/2022 15:24 LOINC: DVT DOPPLER - BOTH LEGS Danielson scale, color, and Doppler imaging of the deep venous system of the right lower extremity was performed.? There is no evidence of intraluminal thrombus and there is normal compression and augmentation demonstrated in the common femoral vein, femoral vein, and popliteal vein. ?? Scanning below the level of the knee reveals no obvious thrombus within the posterior tibial veins.? The saphenofemoral junction appears patent. ?? IMPRESSION: No ultrasound evidence of DVT in both lower extremities. Report called by myself to the ER provider. Dictated by: HEATH CHAN MD Transcribed by: [facility] 01/13/22/09:20 D RIGHT/LEFT LOWER EXTREMITY DVT STUDY: Danielson scale, color, and Doppler imaging of the deep venous system of the right lower extremity was performed.? There is no evidence of intraluminal thrombus and there is normal compression and augmentation demonstrated in the common femoral vein, femoral vein, and popliteal vein. ?? Scanning below the level of the knee reveals no obvious thrombus within the posterior tibial veins.? The saphenofemoral junction appears patent. ?? IMPRESSION: No ultrasound evidence of DVT in the right/left lower extremity. Electronically Reviewed and Signed By: MIMI CHAN MD 01/14/22 07:26 Copy for: VIRGEN Gutierrez via fax Copy for: 185 HEALTH INFORMATION MGMT DISCHARGED Social History Type Status Start Date End Date Code Code Syst em Sex Female Vital Signs Vital Sign Value Unit [place] Value [place] Unit Date/Time Recent/Initial? Code Code System Body Mass Index 30.41 kg/m2 01/12/2022 12:45 Initial 94225 -5 LOINC Systolic Blood Pressure 127 mm[Hg] 01/12/2022 17:34 Most Recent 8480- 6 LOINC Diastolic Blood Pressure 78 mm[Hg] 01/12/2022 17:34 Most Recent 8462- 4 LOINC Systolic Blood Pressure 156 mm[Hg] 01/12/2022 12:45 Initial 8480- 6 LOINC Diastolic Blood Pressure 94 mm[Hg] 01/12/2022 12:45 Initial 8462- 4 LOINC Body Surface Area 2.09 m2 01/12/2022 12:45 Initial 3140- 1 LOINC Height 172.720 0 cm 68.00 in 01/12/2022 12:45 Initial 8302- 2 LOINC O2 Saturation 97 % 2021 17:34 Most Recent 46903 -5 LOINC O2 Saturation 100 % 2021 12:45 Initial 84887 -5 LOINC Pulse 70.0 /min 01/12/2022 17:34 Most Recent 8867- 4 LOINC Pulse 88.0 /min 01/12/2022 12:45 Initial 8867- 4 LOINC Respiration 19 /min 01/13/20 17:34 Most Recent 9279- 1 LOINC Respiration 18 /min 01/13/20 12:45 Initial 9279- 1 LOINC Temperature 36.6 Urmila 97.9 F 01/13/20 22 17:34 Most Recent 8310- 5 LOINC Temperature 36.8 Urmila 98.2 F 01/13/20 22 12:45 Initial 8310- 5 LOINC Weight 90.72 kg 200.00 lbs 01/12/2022 12:45 Initial 57957 -7 LOINC Medications Medication Start Date End Date Route Frequency Dose Code Code System Medication Instructions Home Meds Mupirocin 2% Topical application Ointment 03/10/2023 07/14/2023 ORAL EVERY 8 HOURS 1 875678 RxNorm TAKE 1 ORAL EVERY 8 HOURS LORazepam 0.5MG Oral Tablet 07/14/2023 Unknown ORAL EVERY 6 HOURS 1 TABLET 040195 RxNorm TAKE 1 TABLET ORAL EVERY 6 HOURS as needed vertigo Assessment You had the following problems:ROSS-DANLOS SYNDROMEDEPRESSIONANXIETYNARCOLEPSYGERD Hospital Discharge Instructions Should you have any questions prior to discharge, please contact a member of your healthcare team. If you have left the hospital and have any questions, please contact your primary care physician. 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-CT DEPRESSION active 25499972 SNOMED-CT ANXIETY active 14978075 SNOMED-CT NARCOLEPSY active 65672870 SNOMED-CT GERD active 008469257 SNOMED-CT NEUROPATHY 03/10/2023 resolved 838448742 SNOMED-C T ADHD 03/10/2023 resolved 199039801 SNOMED-CT BIPOLAR DISORDER 03/10/2023 resolved 29021876 SN OMED-CT Allergies and Adverse Reactions Allergy Substance Reaction Severity Start Date Concern Status Co de Code System No Known Drug Allergies Active 417238684 SNOMED-CT Plan of Treatment No Data Found Encounters Encounter Diagnosis Start Date Code Code Sys tem Depression, unspecified 01/12/2022 SNOM ED-CT Personal Care Team Section Performer Name Performer Role Active Date Inactive Trey askew
--- OUTSIDE RECORDS SUMMARY | 2024-01-26 12:51 | XMS_ITS | Encounter Summary ---
Author Organization [facility] Address [address] [place] [address] Care Team Providers Care Development Disability Specialist Name Role Phone Angelic Silva APRN Primary Care Provider [phone] Reason for Visit * Reason Onset Date Comments New Patient Visit 06/26/2023 Encounter Details Date Type Department Care Team (Late st Contact Info) Description 06/26/2023 Telephone [facility] Neurology - [address] [address] Med Maldonado MD [address] [place] [address] [address] [place] [phone] New Patient Visit Social History Tobacco Use Types Packs/Day Years Used Date Smoking Tobacco: Never Smokeless Tobacco: Never Alcohol Use Standard Drinks/Week Comments Yes 0 (1 standard drink = 0.6 oz pur e alcohol) rare- once a year PHQ-2 Answer Date Recorded PHQ-2 SUBTOTAL 0 03/06/2023 Interpersonal Safety Answer Date Record ed Physically Hurt Never 02/09/2020 Verbally Threaten Not on file 02/09/2020 Sex and Gender Information Value Date Recorded Sex Assigned at Not on file Gender Identity Female 02/24/2020 22:01 EDT Sexual Orientation Not on file documented as of this encounter Functional Status Functional Status Response Date of Assess ment Because of a physical, menta l, or emotional condition, does this person have difficulty doing errands alone such as visiting a doctor's office or shopping? Yes 11/06/2019 Cognitive Status Response Date of Assessm ent Because of a physical, menta l, or emotional condition, does this person have serious difficulty concentrating, remembering, or making decisions? No 11/06/2019 documented as of this encounter Miscellaneous Notes * Telephone Encounter - Laurita Griffith - 06/26/2023 1233 EST LM for Yolette to call and schedule a sooner NPV with Dr. Maldonado. (Spots frozen) Please feel free to warm transfer to [facility] If I am out of clinic have permission to remove restrictions on Monday clinic with Dr. Maldonado (NPV spots only) documented in this encounter Plan of Treatment Upcoming Encounters Date Type Department Care Team (Late st Contact Info) Description 01/31/2024 10:15 EDT Telemedicine [facility] Neurology - [address] [place] [address] [place], [place] [address] Med Maldonado MD 1 [facility], Level [address] [place] [phone] 08/31/2024 9:40 EST Appointment Naz Perez [address] [phone] documented as of this encounter Visit Diagnoses Not on filedocumented in this encounter Care Teams Development Disability Specialist Relationship Specialty Start Date End Date Angelic Silva APRN [address] [facility] [address] [place] [address] PCP - General 03/06/23 documented as of this encounter
--- OUTSIDE RECORDS SUMMARY | 2024-01-26 12:51 | XMS_ITS | Encounter Summary ---
Author Organization [facility] Address [address] [place] [address] Care Team Providers Care Rib Puller Name Role Phone Angelic Silva APRN Primary Care Provider [phone] Encounter Details Date Type Department Care Team (Late st Contact Info) Description 05/10/2023 9:00 EDT Phlebotomy Only [facility] ED Center 2 Phlebotomy [address] [place], [place] [address] Diet Attendant, Acc Phlebotomy Elevated LFTs; Hepatomegaly Social History Tobacco Use Types Packs/Day Years [...] No 11/06/2019 documented as of this encounter Plan of Treatment Upcoming Encounters Date Type Department Care Team (Late st Contact Info) Description 01/31/2024 10:15 EDT Telemedicine [facility] Neurology - [address] [place] [address] [place], [place] [address] Med Maldonado MD [address] [place] [address], Level [address] [place] [phone] 08/31/2024 9:40 EST Appointment Naz Perez [address] [address] documented as of this encounter Procedures Procedure Name Priority Date/Time Associated Diagnosis Comments SMOOTH MUSCLE ANTIBODIES, SERUM Routine 05/10/2023 9:21 EDT Elevated LFTs Hepatomegaly TRANSFERRIN SATURATION Routine 05/10/2023 9:21 EDT Elevated LFTs Hepatomegaly PROFILE IRON STUDIES (INCLUDES IRON, IBC, AND FERRITIN) Routine 05/10/2023 9:21 EDT Elevated LFTs Hepatomegaly PROTIME Routine 05/10/2023 9:21 EDT Elevated LFTs Hepatomegaly ANTI NUCLEAR AB (JIE), IFA Routine 05/10/2023 9:21 EDT Elevated LFTs Hepatomegaly IGG Routine 05/10/2023 9:21 EDT Elevated LFTs Hepatomegaly FERRITIN Routine 05/10/2023 9:21 EDT Elevated LFTs Hepatomegaly documented in this encounter Results * FERRITIN (05/10/2023 9:21 EDT) Ferritin 37 10 - 291 ng/mL 05/10/2023 11:13 EDT [facility] Blood VENOUS BLOOD / Unknown Venipuncture / Unknown 05/10/2023 9:21 EDT 05/10/2023 9:39 EDT Andree Wheatley PA-C CHEMISTRY & B LOOD GAS ORDERABLES Performing Organization Address [facility] de Phone Number [facility] [address] [place] [address] * TRANSFERRIN SATURATION (05/10/2023 9:21 EDT) Iron 90 37 - 170 ??g/dL 05/10/2023 10:25 EDT [facility] Iron Binding Capacity 379 240 - 450 ??g/dL 05/10/2023 10:25 EDT [facility] Transferrin Saturation 24 15 - 45 % 05/10/2023 10:25 EDT [facility] Blood VENOUS BLOOD / Unknown Venipuncture / Unknown 05/10/2023 9:21 EDT 05/10/2023 9:39 EDT Andree Wheatley PA-C CHEMISTRY & B LOOD GAS ORDERABLES Performing Organization Address [facility] de Phone Number [facility] [address] [place] [address] * PROTIME (05/10/2023 9:21 EDT) I.N.R. 1.1 0.9 - 1.1 Ratio 05/10/2023 10:00 EDT [facility] Pro Time 12.6 9.7 - 12.8 secs 05/10/2023 10:00 EDT [facility] Blood VENOUS BLOOD / Unknown Venipuncture / Unknown 05/10/2023 9:21 EDT 05/10/2023 9:32 EDT Narrative [facility] - 05/10/2023 10:00 EDT Moderate Intensity Coumadin INR = 2.0-3.0 Adjustments in anticoagulant therapy dose should be based on the INR and NOT on the Protime. Andree Wheatley PA-C HEMATOLOGY & PF4 ORDERABLES Performing Organization Address City/[facility]/ZIP Co de Phone Number [facility] [address] [place] [address] * SMOOTH MUSCLE ANTIBODIES, SERUM (05/10/2023 9:21 EDT) [facility] Smooth Muscle Ab Screen, S Negative Negative 05/12/2023 10:56 EDT [facility] Comment: Negative: No further testing will be performed ADDITIONAL INFORMATION This test was developed and its performance characteristics determined by [facility] in a manner consistent with CLIA requirements. This test has not been cleared or approved by the U.S. Food and Drug Administration. Test Performed by: [facility] - [address] [address] Senior Supply Chain Analyst: Ruddy Garcia M.D. Ph.D.; CLIA# [id number] Blood VENOUS BLOOD / Unknown Venipuncture / Unknown 05/10/2023 9:21 EDT 05/10/2023 9:39 EDT Andree Wheatley PA-C IMMUNOLOGY AN D SEROLOGY ORDERABLES Performing Organization Address [facility] Co de Phone Number [facility] [address] [place] [address] * IGG (05/10/2023 9:21 EDT) [facility] IgG 715 610 - 1,616 mg/dL 05/10/2023 10:57 EDT [facility] Blood VENOUS BLOOD / Unknown Venipuncture / Unknown 05/10/2023 9:21 EDT 05/10/2023 9:39 EDT Andree Wheatley PA-C CHEMISTRY & B LOOD GAS ORDERABLES Performing Organization Address [facility] Co de Phone Number [facility] [address] [place] [address] * ANTI NUCLEAR AB (JIE), IFA (05/10/2023 9:21 EDT) [facility] JIE Interpretation Negative Negative 2022 14:15 EDT [facility] Comment:No titer performed, JIE Screen is negative. Blood VENOUS BLOOD / Unknown Venipuncture / Unknown 05/10/2023 9:21 EDT 05/10/2023 9:39 EDT Narrative [facility] - 05/11/2023 14:15 EDT Results were obtained with the INOVA NOVA Lite HEp-2 JIE Kit by indirect immunofluorescence. Andree Wheatley PA-C IMMUNOLOGY AN D SEROLOGY ORDERABLES [facility] [address] [place] [address] documented in this encounter Visit Diagnoses Diagnosis Elevated LFTs Other abnormal blood chemistry Hepatomegaly documented in this encounter Care Teams Rib Puller Relationship Specialty Start Date End Date Angelic Silva APRN [address] [place] [phone] PCP - General 03/06/23 documented as of this encounter
--- OUTSIDE RECORDS SUMMARY | 2024-01-26 12:51 | XMS_ITS | Encounter Summary ---
Author Organization [facility] Address [address] [place] [address] Care Team Providers Care Patient Care Specialist Name Role Phone Angelic Silva APRN Primary Care Provider [phone] Reason for Visit * Reason Onset Date Comments Appointment Related 11/08/2023 Encounter Details Date Type Department Care Team (Late st Contact Info) Description 11/08/2023 Telephone [facility] Neurology - [address] [address] Med Maldonado MD [address] [place] [address], Level 2 [place] [phone] Appointment Related Social History Tobacco Use Types Packs/Day Years [...] encounter Miscellaneous Notes * Telephone Encounter - Jessie Easton - 11/08/2023 1119 EDT Spoke to Yolette to schedule FUR via Obvious Televideo with Dr. Maldonado on 01/31/24 at 10:15 AM. documented in this encounter Plan of Treatment Upcoming Encounters Date Type Department Care Team (Late st Contact Info) Description 01/31/2024 10:15 EDT Telemedicine [facility] Neurology - [address] [id number] Med Maldonado MD [address] [place] [address] [address] 2 [place] [address] 08/31/2024 9:40 EST Appointment Naz Perez [address] [phone] documented as of this encounter Visit Diagnoses Not on filedocumented in this encounter Care Teams Patient Care Specialist Relationship Specialty Start Date End Date Angelic Silva APRN [address] [place] [address] PCP - General 03/06/23 documented as of this encounter
--- OUTSIDE RECORDS SUMMARY | 2024-01-26 12:51 | XMS_ITS | Encounter Summary ---
Author Organization [facility] Address [address] [place] [address] Care Team Providers Care Comber Operator Name Role Phone Angelic Silva APRN Primary Care Provider [phone] Reason for Referral * Radiology Services (Routine/Next Available) - Authorization Not Required Specialty Diagnoses / Procedures Referred By Tito hernandez Referred To Contact Diagnoses Elevated LFTs Hepatomegaly Procedures US LIVER WITH ELASTOGRAPHY Andree Wheatley PA-C [address] [address] [facility] Referral ID Status Reason Start Date Expiration Date Visits Requested Visits Authorized [id number] Authorization Not Required 05/10/2023 1 1 Reason for Visit * Reason Comments New Patient Visit Dyspepsia * Referral (Routine) - Receiving Office to Obtain Authorization Specialty Diagnoses / Procedures Referred By Tito hernandez Referred To Contact Gastroenterology Diagnoses Functional dyspepsia Angelic Silva APRN 26 [facility] [address] [place] [address] Andree Wheatley PA-C [address] [address] Referral ID Status Reason Start Date Expiration Date Visits Requested Visits Authorized [id number] Receiving Office to Obtain Authorization 1 1 Encounter Details Date Type Department Care Team (Late st Contact Info) Description 05/10/2023 8:00 EDT Office Visit [facility] Gastroenterology - [address] [phone] Andree Wheatley PA-C [address] [place] [phone] Elevated LFTs (Primary Dx); Hepatomegaly Social History Tobacco Use Types Packs/Day Years Used Date Smoking Tobacco: Never Smokeless Tobacco: Never Tobacco Cessation:Counseling Given: Not Answered Alcohol Use Standard Drinks/Week Comments Yes 0 [...] on file documented as of this encounter Last Filed Vital Signs Vital Sign Reading Time Taken Comments Blood Pressure 140/80 05/10/2023 0800 EDT Pulse 84 05/10/2023 0800 EDT Temperature - - Respiratory Rate - - Oxygen Saturation - - Inhaled Oxygen Concentration - - Weight 102.9 kg (226 lb 12.8 oz) 05/10/2023 0800 EDT Height 172.7 cm (5' 8) 05/10/2023 0800 EDT Body Mass Index 34.48 05/10/2023 0800 EDT documented in this encounter Functional Status Functional Status Response [...] No 11/06/2019 documented as of this encounter Patient Instructions * Patient Instructions* Andree Wheatley PA-C - 05/10/2023 8:00 EDT Fiber: Drink lots of water (at least 2L) throughout the day. Consider starting fiber supplementation--I would use the powder version rather than the pills: Try synthetic fiber supplement (Citrucel, FiberCon etc.) or natural kandy senegal fiber (Monserrat'sTummy Fiber). Start with 1/4 teaspoon and increase by another 1/4 teaspoon every 3-4 days. To improve tolerability, can divide dosage 1-3 times/day. titrate to a toothpaste consistency bowel movement documented in this encounter Progress Notes * Andree Wheatley PA-C - 05/10/2023 0800 EDT Gastroenterology & Hepatology Initial Visit Reason for Referral: Dyspepsia PCP: Angelic Silva HPI: Yolette Tellez is a 42 y.o. female with a past medical history of anxiety, bipolar disorder,migraines, EDS, narcolepsy, JERMAN, HTN, prediabetes here today for consultation regarding dyspepsia. Patient endorses history of heartburn for about 8-10 years since of first child. She states she often has heartburn with eating trigger foods including peppers, garlic, acidic and spicy foods. She has decreased OJ intake, drinking milk in the morning. Drinks 2 diet pepsis daily. She states inthe last few years she felt her symptoms were worsened and was evaluated by her PCP who prescribed omeprazole 20mg. She has been taking this once at bedtime without much relief. Started taking famotifine 20mg in the morning which she feels helps. She endorses symptoms mainly in the evening with or after dinner, lying down at night. During the day will only have symptoms if eating trigger foods. She endorses intermittent regurgitation. She denies nausea, vomiting, nocturnal symptoms, dysphagia. She states her job is stressful and she is currently living with her parents and her three daughters. from who has alcohol dependence. She states her eating schedule is varied. Typically won't eat lunch until 2pm, on drive home will snack and when arriving at her parents dinner isusually around 5pm. She states she hasn't been eating as much lately, thinks she may have lost someweight. She is introspective as to exacerbation of symptoms with stress. She reports most of her life she has been a picky eater. Doesn't eat many fruits and vegetables. She started taking a supplement called digestzen which has fiber. Has regular formed stool daily. She denies red or black stools, epigastric pain, postprandial pain. Patient also endorses she had routine lab work this year with PCP which revealed elevation in LFT- 11/18/22 ALT 71. AST 21, alk phos 105, albumin 4.0. PLT 311 Further work up 02/2023: Hep B surface Ag negative, core Ab - negative Hep C Ab - negative Hep A IgM - negative US abdomen 03/08/23: IMPRESSION Hepatomegaly and hepatic steatosis and/or fibrosis. No focal hepatic lesions. ?? Patient states she is taking the following supplements; multivitamin, tumeric 500mg, terrazyme digestZen from [employer] probiotic which she has been taking for several years. She denies alcohol or substance use. She denies known history of liver disease. Father is adopted. She denies jaundice, edema, hematemesis. PMH: As stated in HPI. ROS: A 10-point ROS was performed and is negative other than stated in HPI. Current Outpatient Medications: ??? budesonide (PULMICORT) 0.5 mg/2 mL nebulizer suspension, 2mL in sinus rinse kit once daily, Disp: 180 mL, Rfl: 3 ??? escitalopram oxalate (LEXAPRO) 10 mg tablet, Take 2 Tablets by mouth daily., Disp: , Rfl: ??? famotidine (PEPCID) 20 mg tablet, , Disp: , Rfl: ??? ibuprofen (MOTRIN) 400 mg tablet, Take 1 Tab by mouth every 4 hours as needed for Pain., Disp: , Rfl: ??? INTRAUTERINE DEVICE, IUD, INTRAUTERINE, by intrauterine route., Disp: , Rfl: ??? lamoTRIgine (LAMICTAL) 25 mg tablet, TAKE 2 TABLETS BY MOUTH EVERY DAY, CONTINUE TO MONITOR FORRASH, Disp: , Rfl: ??? meclizine (ANTIVERT) 25 mg tablet, Take 25 mg by mouth as needed., Disp: , Rfl: ??? modafiniL (PROVIGIL) 200 mg tablet, Take 1 Tablet by mouth daily., Disp: , Rfl: ??? montelukast (SINGULAIR) 10 mg tablet, Take 10 mg by mouth daily., Disp: , Rfl: ??? Multivitamins with Minerals tablet tablet, Take 1 Tab by mouth daily., Disp: , Rfl: ??? omeprazole (PRILOSEC) 20 mg capsule, Take 1 Capsule by mouth daily., Disp: , Rfl: ??? SUMAtriptan (IMITREX) 50 mg tablet, Take 50 mg by mouth as needed for Migraine., Disp: , Rfl: ??? UNABLE TO FIND, Med Name: Madeline Syed from [employer], [employer] [facility] probiotic, Disp: , Rfl: Allergies Allergen Reactions ??? 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 Speech is fluent and clear. Skin: Color pink. Warm and dry. Nails without clubbing or cyanosis. HEENT: Conjunctiva pink, sclera white. Resp: Breath sounds vesicular; no rales, wheezes or rhonchi. CV: RRR, no m/g/r Abd: Soft, non-tender, non-distended, positive bowel sounds. No guarding or rebound tenderness. No palpable hepatosplenomegaly. Ext: Extremities warm and without edema. Impression: Yolette Tellez is a 42 y.o. female with a past medical history of anxiety, bipolar disorder, migraines, EDS, narcolepsy, JERMAN, HTN, prediabetes here today for consultation regarding dyspepsia and elevated LFTs. Patient endorses long-standing history of heartburn and intermittent regurgitation which has worsened in the last few years. She states symptoms are worse in the evening for which she has been takingomeprazole 20mg at bedtime per PCP without relief. Taking famotidine 20mg in the mornings which shefeels helps. Symptoms during the day mostly with eating trigger foods; acidic, spicy foods which she tries to avoid. Still drinks OJ, although has but back, and diet pepsi daily. Notes increased workand personal stressors. She denies nausea, vomiting, nocturnal symptoms, red or black stools, unintentional weight loss, dysphagia, postprandial pain, epigastric pain. Differentials include GERD vs. Functional dyspepsia. Recommend patient take omeprazole 20mg 30 minutes before dinner daily. We discussed she avoid trigger foods and other lifestyle modifications including avoiding eating 2-3 hours before bedtime, keeping head elevated at bedtime. We will follow up in 2 months. If no improvement consideration for EGD with IV sedation for further evaluation. Elevated LFT (ALT 71) noted on routine blood work 11/2022. US abdomen 02/2023 Hepatomegaly and hepatic steatosis and/or fibrosis. No focal hepatic lesions. Viral hepatitis B and C negative. Will order serologies to evaluate for other etiology of chronic liver disease including iron studies to evaluate for iron overload, JIE, IGG and anti-smooth muscle AB to evaluate for autoimmune hepatitis. She denies alcohol or substance use. Patient is taking tumeric and other digestZen supplement- we discussed I do not recommend these as they are not federally regulated. We discussed if blood work comes back elevated with concern for respective conditions, liver biopsyis most definitive for diagnosis and staging of liver disease. 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 This represents infiltration of liver with fat that can promote inflammation and stimulate scarring development. The issue is to what degree is this involving the liver, with the goal to determine degree of scarring or evidence of advanced scarring. Discussed noninvasive methods including serology and liver stiffness measurements via US when combined can be accurate in this evaluation. FIB-4 is 0.33 with low risk of advanced fibrosis. Will order US elastography in setting of hepatomegaly. If low risk of fibrosis identified, recommend patient follow up with PCP regarding management of HTN, pre-DM and weight loss, which includes nutrition and exercise, with yearly labs evaluating for liver function tests. With management these tests should improve. If change or worsening despite management, recommend patient return for re-evaluation. Discussed the only treatment currently for MASLD is weight loss. It has been shown that 5-10% body weight loss can reverse fatty infiltration in the liver. Recommend PCP consider referral to local manager relocation. She denies alarm features such as jaundice, edema, vomiting, hematemesis. Patient advised to call office if symptoms worsen or if she develops alarm features as mentioned above. All questions answered, patient expressed understanding and is in agreement with plan. Plan: 1. Elevated LFT, hepatomegaly -- iron studies -- JIE, IGG, anti-smooth muscle Ab -- INR -- US elastography -- Recommend PCP refer to manager relocation 2. GERD -- Take omeprazole 20mg 30 minutes before dinner -- Lifestyle modifications -- Follow-up in 2 months Andree Wheatley PA-C Gastroenterology & Hepatology I spent a total of 45 minutes on the date of this encounter meeting with the patient and reviewing documentation/coordinating care as described in the above note. documented in this encounter Plan of Treatment Upcoming Encounters Date Type Department Care Team (Late st Contact Info) Description 01/31/2024 10:15 EDT Telemedicine [facility] Neurology - [address] [phone] Med Maldonado MD [address] [place] [address], Level 2 [place] [address] 08/31/2024 9:40 EST Appointment Naz Perez [address] [address] Scheduled Orders Name Type Priority Associated Diagnoses Orde r Schedule US LIVER WITH ELASTOGRAPHY Imaging Routine Elevated LFTs Hepatomegaly Expected: 06/09/2023 (Approximate), Expires: 11/07/2024 documented as of this encounter Results * PROTIME (05/10/2023 9:21 EDT) Pathologist [facility] I.N.R. 1.1 0.9 - 1.1 Ratio 05/10/2023 10:[address] [facility] Pro Time 12.6 9.7 - 12.8 secs 05/10/2023 10:[address] [facility] Blood VENOUS BLOOD / Unknown Venipuncture / Unknown 05/10/2023 9:21 EDT 05/10/2023 9:[address] [facility] - 05/10/2023 10:00 EDT Moderate Intensity Coumadin INR = 2.0-3.0 Adjustments in anticoagulant therapy dose should be based on the INR and NOT on the Protime. Andree Wheatley PA-C HEMATOLOGY & PF4 ORDERABLES Performing Organization Address City/State/[facility] Co de Phone Number [facility] [address] [place] [phone] * SMOOTH MUSCLE ANTIBODIES, SERUM (05/10/2023 9:21 EDT) [facility] Smooth Muscle Ab Screen, S Negative Negative 05/12/2023 10:56 EDT [facility] Comment: Negative: No further testing will be performed ADDITIONAL INFORMATION This test was developed and its performance characteristics determined by [facility] in a manner consistent with CLIA requirements. This test has not been cleared or approved by the U.S. Food and Drug Administration. Test Performed by: [facility] - [address] [address] Personal Lines Account Executive: Ruddy Garcia M.D. Ph.D.; CLIA# [id number] Blood VENOUS BLOOD / Unknown Venipuncture / Unknown 05/10/2023 9:21 EDT 05/10/2023 9:39 EDT Andree Wheatley PA-C IMMUNOLOGY AN D SEROLOGY ORDERABLES Performing Organization Address City/[facility]/ZIP Co de Phone Number [facility] [address] [place] [address] * IGG (05/10/2023 9:21 EDT) IgG 715 610 - 1,616 mg/dL 05/10/2023 10:[address] [facility] Blood VENOUS BLOOD / Unknown Venipuncture / Unknown 05/10/2023 9:21 EDT 05/10/2023 9:39 EDT Andree Wheatley PA-C CHEMISTRY & B LOOD GAS ORDERABLES Performing Organization Address [facility] Co de Phone Number [facility] [address] [place] [address] * ANTI NUCLEAR AB (JIE), IFA (05/10/2023 9:21 EDT) JIE Interpretation Negative Negative 2022 14:[address] [facility] Comment:No titer performed, JIE Screen is negative. Blood VENOUS BLOOD / Unknown Venipuncture / Unknown 05/10/2023 9:21 EDT 05/10/2023 9:[address] [facility] - 05/11/2023 14:15 EDT Results were obtained with the INOVA NOVA Lite HEp-2 JIE Kit by indirect immunofluorescence. Andree Wheatley PA-C IMMUNOLOGY AN D SEROLOGY ORDERABLES Performing Organization Address [facility] Co de Phone Number [facility] [address] [place] [address] documented in this encounter Visit Diagnoses Diagnosis Elevated LFTs- Primary Other abnormal blood chemistry Hepatomegaly documented in this encounter Discontinued Medications Medication Sig Discontinue Reason Start Date End Da te esomeprazole (NEXIUM) 40 mg capsule Take 1 Capsule by mouth daily. Error 02/25/2023 05/10/2023 documented as of this encounter Historical Medications * This list may reflect changes made after this encounter. Medication Sig Dispensed Refills Start Date End Date magnesium oxide (MAG-OX) 400 mg (241.3 mg magnesium) tablet Take 1 Tablet by mouth daily. esomeprazole (NEXIUM) 40 mg capsule Take 1 Capsule by mouth daily. 02/25/2023 05/10/2023 loratadine (CLARITIN) 10 mg tablet Take 1 Tablet by mouth daily. 10/17/2023 acetylcysteine (NAC ORAL) Take 1,200 mg by mouth 2 times daily. 07/11/2023 B-complex with vitamin C (VITAMIN B COMPLEX-C ORAL) Take by mouth. 10/17/2023 added in this encounter Care Teams Comber Operator Relationship Specialty Start Date End Date Angelic Silva APRN [address] [place] [phone] PCP - General 03/06/23 documented as of this encounter
--- OUTSIDE RECORDS SUMMARY | 2024-01-26 12:51 | XMS_ITS | Encounter Summary ---
Author Organization [facility] Address [address] [place] [address] Care Team Providers Care Table Filler Name Role Phone Morgan Panchal Primary Care Provider [phone] Encounter Details Date Type Department Care Team (Latest Contact Info) Description 10/15/2021 9:25 EDT Phlebotomy Only [facility] - [employer] [address] [place] [address] Encounter for preprocedure screening laboratory testing for COVID-19 Social History Tobacco Use Types Packs/Day Years Used Date Smoking Tobacco: Never Smokeless Tobacco: Never Alcohol Use Standard Drinks/Week Comments Yes 0 (1 standard drink = 0.6 oz pur e alcohol) rare- once a year PHQ-2 Answer Date Recorded PHQ-2 SUBTOTAL 0 02/24/2020 Interpersonal Safety Answer Date Record ed Physically [...] Contact Info) Description 01/31/2024 10:15 EDT Telemedicine [facility] Neurology - [address] [place] [address] [place], [place] [phone] Med Maldonado MD [address] [facility], Level 2 [place] [phone] 08/31/2024 9:40 EST Appointment Naz Perez [address] [address] documented as of this encounter Procedures Procedure Name Priority Date/Time Associated Diagnosis Comments ZZCOVID-19 TEST [facility] PCR Today 10/15/2021 9:41 EDT Encounter for preprocedure screening laboratory testing for COVID-19 COVID-19 TESTING Routine 10/15/2021 9:41 EDT Encounter for preprocedure screening laboratory testing for COVID-19 documented in this encounter Results * COVID-19 TEST [facility] PCR (10/15/2021 9:41 EDT) Swab BOTH ANTERIOR NARES / Unknown Swab / Unknown 10/15/2021 9:41 EDT 10/15/2021 9:41 EDT Rachel Hernandez MD MICROBIOLOGY - GENER AL ORDERABLES [facility] [address] [place] [address] * COVID-19 TESTING (10/15/2021 9:41 EDT) COVID-19 rt-PCR Result Negative Negative 10/16/2021 10:47 EDT [facility] Comment: This test has not been FDA cleared or approved. This test has been authorized by FDA under an EUA for use by authorized laboratories. This test has been authorized only for detection of nucleic acid from 2018-, not for any other viruses or pathogens. This test is only authorized for the duration of the declaration that circumstances exist justifying the authorization of emergency use of in vitro diagnostic tests for detection and/or diagnosis of 2019-nCoV under section 564(b)(1) of Act, 21 U.S.C ?? 360bbb-3(b) (1), unless the authorization is terminated or revoked sooner. Negative results do not preclude 2019-nCoV infection and should not be used as the sole basis for treatment or other patient management decisions. Negative results must be combined with clinical observations, patient history, and epidemiological information. Testing was performed using the susan SARS-CoV-2 assay ([employer] on the Susan 6800 System Performing Lab Susan [address] [facility] 10/16/2021 10:47 EDT [facility] Swab BOTH ANTERIOR NARES / Unknown Swab / Unknown 10/15/2021 9:41 EDT 10/15/2021 9:41 EDT Rachel Hernandez MD MICROBIOLOGY - GENER AL ORDERABLES [facility] [address] [place] [address] documented in this encounter Visit Diagnoses Diagnosis Encounter for preprocedure screening laboratory testing for COVID-19 documented in this encounter Care Teams Table Filler Relationship Specialty Start Date End Date Morgan Panchal PA PCP - General 03/27/20 03/05/23 documented as of this encounter
--- OUTSIDE RECORDS SUMMARY | 2024-01-26 12:51 | XMS_ITS | Encounter Summary ---
Author Organization [facility] Address [address] [place] [address] Care Team Providers Care 21 Dealer Name Role Phone Morgan Panchal Primary Care Provider [phone] Reason for Visit * Reason Onset Date Comments Referral Request 09/24/2021 Encounter Details Date Type Department Care Team (Late st Contact Info) Description 09/24/2021 Telephone [facility] Child Psychiatry [address] [phone] Nesha Martinez, [address], [address] [place] [phone] Referral Request Social History Tobacco Use Types Packs/Day Years [...] Contact Info) Description 01/31/2024 10:15 EDT Telemedicine [facility] Neurology - S [address] [phone] Med Maldonado MD [address] [place] [address], [address] [place] [address] 08/31/2024 9:40 EST Appointment Naz Perez [address] [phone] documented as of this encounter Visit Diagnoses Not on filedocumented in this encounter Care Teams 21 Dealer Relationship Specialty Start Date End Date Morgan Panchal PA PCP - General 03/27/20 03/05/23 documented as of this encounter
--- OUTSIDE RECORDS SUMMARY | 2024-01-26 12:51 | XMS_ITS | Encounter Summary ---
Author Organization [facility] Address [address] [place] [address] Care Team Providers Care Coil Winder Name Role Phone Angelic Silva APRN Primary Care Provider [phone] Reason for Referral * Referral (Routine/Next Available) - Receiving Office to Obtain Authorization Specialty Diagnoses / Procedures Referred By Contac t Referred To Contact Diagnoses Gastroesophageal reflux disease, unspecified whether esophagitis present Procedures UPPER ENDOSCOPY (EGD) Andree Wheatley PA-C [address] [facility] [address] [place] [address] [facility] [address] [place] [address] Referral ID Status Reason Start Date Expiration Date Visits Requested Visits Authorized [id number] Receiving Office to Obtain Authorization 07/19/2023 1 1 Reason for Visit * Reason Comments Follow-up Dyspepsia * Referral (Routine) - Receiving Office to Obtain Authorization Specialty Diagnoses / Procedures Referred By Contac t Referred To Contact Gastroenterology Diagnoses Functional dyspepsia Angelic Silva APRN [address] [facility] [address] [place] [address] Andree Wheatley PA-C [address] [place] [phone] Referral ID Status Reason Start Date Expiration Date Visits Requested Visits Authorized [id number] Receiving Office to Obtain Authorization 1 1 Encounter Details Date Type Department Care Team (Latest Contact Info) Description 07/19/2023 14:00 EST Office Visit [facility] Gastroenterology - [address] [address] Andree Wheatley PA-C [address] [place] [phone] Gastroesophageal reflux disease, unspecified whether esophagitis present (Primary Dx); Hepatomegaly Social History Tobacco Use Types Packs/Day Years Used Date Smoking Tobacco: Never Smokeless Tobacco: Never Tobacco Cessation:Counseling Given: No Alcohol Use Standard Drinks/Week Comments Yes 0 [...] Sign Reading Time Taken Comments Blood Pressure 146/98 07/19/2023 1351 EST Pulse 105 07/19/2023 1351 EST Temperature - - Respiratory Rate - - Oxygen Saturation 97% 07/19/2023 1351 EST Inhaled Oxygen Concentration - - Weight 100.8 kg (222 lb 3.2 oz) 07/19/2023 1351 EST Height 172.7 cm (5' 7.99) 07/19/2023 1351 EST Body Mass Index 33.79 07/19/2023 1351 EST documented in this encounter Functional Status Functional [...] No 11/06/2019 documented as of this encounter Progress Notes * Andree Wheatley PA-C - 07/19/2023 1400 EST Gastroenterology & Hepatology Follow-up Visit HPI: Yolette Tellez is a 42 y.o. female with a past medical history of anxiety, bipolar disorder,migraines, EDS, narcolepsy, JERMAN, HTN, prediabetes here today for follow up regarding GERD and elevated LFTs. Patient presents today stating she has had vertigo following COVID infection 3 weeks ago. Seeing PCP tomorrow. She endorses she hasn't been feeling much reflux, but thinks this is because she is preoccupied with vertigo. Has been taking omeprazole at bedtime or after dinner. Endorses she had been on this for several years with improvement of GERD but in the last year worsening, particularly at night time and with lying down. Denies dysphagia. Patient states from [place] to last week had some looser stools which have since improved. Attributes this to indulging in other foods during the holidays. Now regular stool daily. Has not completed US elastography in evaluation of hepatomegaly. Endorses some nausea associated with vertigo. Denies vomiting. Weight is stable. Labs and Imaging: Lab Results Component Value Date NA 141 07/11/2023 K 4.2 07/11/2023 CL 107 07/11/2023 CO2 26 07/11/2023 SERGLU 131 (H) 07/11/2023 BUN 17 07/11/2023 CREATININE 0.44 (L) 07/11/2023 CALCGFR 125 07/11/2023 TP 7.1 07/11/2023 ALKPHOS 65 07/11/2023 AST 25 07/11/2023 ALT 26 07/11/2023 TBIL 0.5 07/11/2023 CALCIUM 9.5 07/11/2023 AGRATIO 1.5 07/11/2023 ANIONGAP 8 07/11/2023 Lab Results Component Value Date WBC 9.38 07/11/2023 HGB 13.3 07/11/2023 HCT 37.9 07/11/2023 MCV 86 07/11/2023 PLT 284 07/11/2023 PMH: As stated in HPI. ROS: A 10-point ROS was performed and is negative other than stated in HPI. Current Outpatient Medications: B COMPLEX-VITAMIN B12 tablet, Take 1 Tablet by mouth at bedtime., Disp: , Rfl: B-complex with vitamin C (VITAMIN B COMPLEX-C ORAL), Take by mouth., Disp: , Rfl: budesonide (PULMICORT) 0.5 mg/2 mL nebulizer suspension, 2mL in sinus rinse kit once daily (Patientnot taking: Reported on 05/10/2023), Disp: 180 mL, Rfl: 3 escitalopram oxalate (LEXAPRO) 20 mg tablet, Take 1 Tablet by mouth daily., Disp: , Rfl: famotidine (PEPCID) 20 mg tablet, , Disp: , Rfl: ibuprofen (MOTRIN) 400 mg tablet, Take 1 Tab by mouth every 4 hours as needed for Pain. (Patient not taking: Reported on 05/10/2023), Disp: , Rfl: INTRAUTERINE DEVICE, IUD, INTRAUTERINE, by intrauterine route., Disp: , Rfl: lamoTRIgine (LAMICTAL) 100 mg tablet, TAKE ONE TABLET BY MOUTH EVERY DAY. CONTINUE TO MONITOR FOR RASH, Disp: , Rfl: levonorgestreL (MIRENA) 21 mcg/24 hours (8 yrs) 52 mg IUD, by intrauterine route., Disp: , Rfl: lisinopriL (PRINIVIL) 10 mg tablet, Take 1 Tablet by mouth daily., Disp: , Rfl: loratadine (CLARITIN) 10 mg tablet, Take 1 Tablet by mouth daily., Disp: , Rfl: magnesium oxide (MAG-OX) 400 mg (241.3 mg magnesium) tablet, Take 1 Tablet by mouth daily., Disp: ,Rfl: meclizine (ANTIVERT) 25 mg tablet, Take 1 Tablet by mouth 3 times daily as needed for Dizziness., Disp: 15 Tablet, Rfl: 0 meclizine (ANTIVERT) 25 mg tablet, Take 1 Tablet by mouth as needed., Disp: , Rfl: modafiniL (PROVIGIL) 200 mg tablet, Take 1 Tablet by mouth 2 times daily., Disp: , Rfl: montelukast (SINGULAIR) 10 mg tablet, Take 10 mg by mouth daily. (Patient not taking: Reported on 05/10/2023), Disp: , Rfl: Multivitamins with Minerals tablet tablet, Take 1 Tablet by mouth daily., Disp: , Rfl: mupirocin (BACTROBAN) 2 % ointment, APPLY TOPICALLY EVERY 8 HOURS DIRECTED, Disp: , Rfl: NAC 600 mg capsule, Take 2 Capsules by mouth 2 times daily., Disp: , Rfl: omeprazole (PRILOSEC) 40 mg capsule, Take 1 Capsule by mouth daily., Disp: , Rfl: ondansetron (ZOFRAN-ODT) 4 mg disintegrating tablet, , Disp: , Rfl: SUMAtriptan (IMITREX) 50 mg tablet, Take 1 Tablet by mouth as needed for Migraine., Disp: , Rfl: UNABLE TO FIND, Med Name: Karenryandennis Syed from [place], [employer] [facility] probiotic, Disp: , Rfl: Allergies Allergen Reactions Other - See Comments Environmental Allergies Last Vitals: Patient Vitals for the past 24 hrs: BP Pulse SpO2 Height Weight 07/19/23 1351 (!) 146/98 105 97 % 172.7 cm (67.99) (!) 100.8 kg (222 lb 3.2 oz) General: Well appearing and in NAD. Speech is fluent and clear. Skin: Color pink. Warm and dry. Nails without clubbing or cyanosis. HEENT: Conjunctiva pink, sclera white. Resp: Breath sounds vesicular; no rales, wheezes or rhonchi. CV: RRR, no m/g/r Abd: Soft, non-tender, non-distended, positive bowel sounds. No guarding or rebound tenderness. Ext: Extremities warm and without edema. Impression: Yolette Tellez is a 42 y.o. female with a past medical history of anxiety, bipolar disorder, migraines, EDS, narcolepsy, JERMAN, HTN, prediabetes here today for follow up regarding GERD and elevated LFTs. Discussed with patient given long-standing history of GERD previously controlled with omeprazole but now with refractory symptoms and particularly at bedtime will order EGD with IV sedation for evaluation of esophagitis, puga's. Lab work negative for other etiology of chronic liver disease. Most recent liver tests have improved. FIB-4 is 0.71 with low risk of fibrosis however in setting of hepatomegaly, recommend patient complete US elastography for further evaluation. 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 Plan: 1. GERD -- Recommend take omeprazole 20mg 30 minutes before dinner -- Avoid trigger foods, lifestyle modifications -- EGD with IV sedation 2. 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 documented in this encounter Plan of Treatment Upcoming Encounters Date Type Department Care Team (Late st Contact Info) Description 01/31/2024 10:15 EDT Telemedicine [facility] Neurology - [address] [place] [address] [place], [place] [id number] Med Maldonado MD [address] [place] [address], Level 2 [place] [phone] 08/31/2024 9:40 EST Appointment Naz Perez [address] [phone] Scheduled Orders Name Type Priority Associated Diagnoses Orde r Schedule UPPER ENDOSCOPY (EGD) GI Routine Gastroesophageal reflux disease, unspecified whether esophagitis present Expected: 10/18/2023 (Approximate), Expires: 01/16/2025 documented as of this encounter Visit Diagnoses Diagnosis Gastroesophageal reflux disease, unspecified whether esophagitis present- Primary Hepatomegaly documented in this encounter Care Teams Coil Winder Relationship Specialty Start Date End Date Angelic Silva APRN [address] [place] [address] PCP - General 03/06/23 documented as of this encounter
--- OUTSIDE RECORDS SUMMARY | 2024-01-26 12:51 | XMS_ITS | Encounter Summary ---
Author Organization [facility] Address [address] [place] [address] Care Team Providers Care Yoghurt Maker Name Role Phone Morgan Panchal Primary Care Provider [phone] Reason for Visit * Reason Onset Date Comments Appointment Related 10/04/2021 Encounter Details Date Type Department Care Team (Late st Contact Info) Description 10/04/2021 Telephone [facility] Child Psychiatry - [address] [phone] Nesha Martinez, [address] [place] [phone] Appointment Related Social History Tobacco Use Types [...] Contact Info) Description 01/31/2024 10:15 EDT Telemedicine [facility] Neurology - S [address] [phone] Med Maldonado MD [address] [place] [address], [address] [place] [address] 08/31/2024 9:40 EST Appointment Naz Perez [address] [phone] documented as of this encounter Visit Diagnoses Not on filedocumented in this encounter Care Teams Yoghurt Maker Relationship Specialty Start Date End Date Morgan Panchal PA PCP - General 03/27/20 03/05/23 documented as of this encounter
--- OUTSIDE RECORDS SUMMARY | 2024-01-26 12:51 | XMS_ITS | Encounter Summary ---
Author Organization [facility] Address [address] [place] [address] Care Team Providers Care Production Line Mechanic Name Role Phone Morgan Panchal Primary Care Provider [phone] Reason for Visit * Reason Onset Date Comments Referral Request 09/24/2021 Encounter Details Date Type Department Care Team (Late st Contact Info) Description 09/24/2021 Telephone [facility] Child Psychiatry [address] [phone] Nesha Martinez, [address], [address] [place] [phone] Referral Request Social History Tobacco Use Types [...] Contact Info) Description 01/31/2024 10:15 EDT Telemedicine [facility] Neurology - S [address] [phone] Med Maldonado MD [address] [place] [address], [address] [place] [address] 08/31/2024 9:40 EST Appointment Naz Perez [address] [phone] documented as of this encounter Visit Diagnoses Not on filedocumented in this encounter Care Teams Production Line Mechanic Relationship Specialty Start Date End Date Morgan Panchal PA PCP - General 03/27/20 03/05/23 documented as of this encounter
--- OUTSIDE RECORDS SUMMARY | 2024-01-26 12:51 | XMS_ITS | Encounter Summary ---
Author Organization [facility] Address [address] [place] [address] Care Team Providers Care Plant Control Operator Name Role Phone Morgan Panchal Primary Care Provider [phone] Reason for Visit * Reason Onset Date Comments Referral Request 09/20/2021 Encounter Details Date Type Department Care Team (Late st Contact Info) Description 09/20/2021 Telephone [facility] Child Psychiatry [address] [phone] Nehsa Martinez, [address], [address] [place] [phone] Referral Request Social History Tobacco Use Types [...] Contact Info) Description 01/31/2024 10:15 EDT Telemedicine [facility] Neurology - S [address] [phone] Med Maldonado MD [address] [place] [address], [address] [place] [address] 08/31/2024 9:40 EST Appointment Naz Perez [address] [phone] documented as of this encounter Visit Diagnoses Not on filedocumented in this encounter Care Teams Plant Control Operator Relationship Specialty Start Date End Date Morgan Panchal PA PCP - General 03/27/20 03/05/23 documented as of this encounter
--- OUTSIDE RECORDS SUMMARY | 2024-01-26 12:51 | XMS_ITS | Encounter Summary ---
Author Organization [facility] Address [address] [place] [address] Care Team Providers Care Dobie Worker Name Role Phone Angelic Silva APRN Primary Care Provider [phone] Encounter Details Date Type Department Care Team (Latest Contact Info) Description 07/11/2023 Travel Social History Tobacco Use Types Packs/Day Years [...] Contact Info) Description 01/31/2024 10:15 EDT Telemedicine [facility] Neurology - [address] [place] [address] [place] [address] Med Maldonado MD [address] [place] [address], Level [address] [place] [phone] 08/31/2024 9:40 EST Appointment Naz Perez [address] [phone] documented as of this encounter Visit Diagnoses Not on filedocumented in this encounter Care Teams Dobie Worker Relationship Specialty Start Date End Date Angelic Silva APRN [address] [place] [phone] PCP - General 03/06/23 documented as of this encounter
--- OUTSIDE RECORDS SUMMARY | 2024-01-26 12:51 | XMS_ITS | Patient Health Record ---
Author Organization [facility] Address [address] [place], [place] [id number] Care Team Providers Care Bark Skinner Name Role Phone Juanis Resendiz Unavailable [phone] Allergies No Known Allergies Reason For Referral No Information Medications Medication SIG (Take, Route, Frequency, Duration) Notes Start Date End Date [facility] for 0 (Alhaji) Active Mirena (52 MG) 20 MCG/24HR as directed Intrauterine 12/23/2020 Active Ranitidine HCl Activ e Omeprazole 20 MG 1 tablet 30 minutes before morning meal Orally Once a day for 30 day(s) Active buPROPion HCl ER (SR) 100 MG 1 tablet in the morning Orally Once a day Active Escitalopram Oxalate 20 MG 1 tablet Oral ly Once a day for 30 day(s) Active Immunizations Vaccine Route Administration Date Status Comme nts Flucelvax Intramuscular Suspension Intramuscular 3 Pending (Alhaji) Tdap Intramuscular 11/22/2013 Pending (Alhaji) Problems Problem Type SNOMED Code ICD Code Onset Dates Problem Status W/U Status Risk Notes Problem Heavy menstrual bleeding (474678442) Heavy menstrual bleeding (N92.0) Active confirmed Problem Moderate cervical dysplasia (654339287) Moderate cervical dysplasia (N87.1) Active confirmed Problem Menorrhagia (373111890) Menorrhagia (N92.0) Active confirmed Problem Irregular menstrual cycle (11436110) Irregular menstrual cycle (626.4) Active confirmed (Alhaji) OnsetDa te: Resolve d: Problem General examination of patient (091868410) Routine general medical examination at health care facility (V70.0) Active confirmed (Alhaji) OnsetDa te: Resolve d: Problem Family history: Cardiovascular disease (situation) (383228343) Family history of other cardiovascular diseases (V17.49) Active confirmed (Alhaji) OnsetDa te: Resolve d: Problem Family history of diabetes mellitus (268887540) Family history of diabetes mellitus (V18.0) Active confirmed (Alhaji) OnsetDa te: Resolve d: Problem Primigravida (454924388) Supervision of normal first (V22.0) Problem resolved confirmed (Alhaji) OnsetDa te: Resolve d: Problem care (588295695) Supervision of other normal (V22.1) Problem resolved confirmed (Alhaji) OnsetDa te: Resolve d: Problem Intrauterine contraceptive device in situ (finding) (937033614) Presence of intrauterine contraceptive device (V45.51) Problem resolved confirmed (Alhaji) OnsetDa te: Resolve d: Problem History of gynecological disorder (219539595) Personal history of other genital system and obstetric disorders (V13.29) Problem resolved confirmed (Alhaji) OnsetDa te: Resolve d: Problem maternal examination (920450613) care and examination of lactating mother (V24.1) Problem resolved confirmed (Alhaji) OnsetDa te: Resolve d: Problem Gynecological examination normal (130474632979176) Routine gynecological examination (V72.31) Problem resolved confirmed (Alhaji) OnsetDa te: Resolve d: Plan Of Treatment Pending Test Test Name Order Date U/A Test 12/23/2020 Insurance Providers Payer Name Payer Address Payer Phone Subscriber Number Group Number Insured Name Patient Relationship to Insured Coverage Start Date Coverage End Date [place] [address] [facility] [place] [address] [id number] HattieYolette felix Self - patient is the insured [employer] - MEDICA[employer] [address] [place] [id number] Rosalinda Yolette Self - patient is the insured Medical (General) History Medical History History ICD Code Irregular menstrual cycle 626.4 care and examination of lacta ting mother V24.1 Sleep apnea, unspecified G47.30 Narcolepsy Acid reflux K21.9 LSIL with positive HPV on pap smear Surgical History Surgery Date(Month/Year) dental surgery Knee Surgery
--- OUTSIDE RECORDS SUMMARY | 2024-01-26 12:51 | XMS_ITS | Encounter Summary ---
Author Organization [facility] Address [address] [place] [address] Care Team Providers Care Inspector Watch Parts Name Role Phone Angelic Silva APRN Primary Care Provider [phone] Reason for Referral * PT/OT/ST (Routine/Next Available) - Authorization Not Required Specialty Diagnoses / Procedures [facility] Referred To Contact Diagnoses Dizziness Lacy Guan PA-C [address] [place] [address] Referral ID Status Reason Start Date Expiration Date Visits Requested Visits Authorized [id number] Authorization Not Required Specialty Services Required 07/11/2023 1 1 Question Answer Reason for Request: vertigo Reason for Visit * Reason Comments Dizziness Pt here via ems for dizziness. Pt has new diagnosis of vertigo and this was her first time driving since diagnosis. Was driving to work and pulled over as she felt she was unable to drive safely. Pt states has been busy for a few days. Admits to severe anxiety and depression. Had covid 3 weeks ago Encounter Details Date Type Department Care Team (Late st Contact Info) Description 07/11/2023 9:35 EST - 07/11/2023 14:45 EST Emergency [facility] Emergency Department [address] [place] [address] Dizziness (Primary Dx) Discharge Disposition: Home or Self Care Social History Tobacco Use Types Packs/Day Years [...] Sign Reading Time Taken Comments Blood Pressure 125/72 07/11/2023 1200 EST Pulse - - Temperature 36.5 ??C (97.7 ??F) 07/11/2023 0940 EST Respiratory Rate 18 07/11/2023 1200 EST Oxygen Saturation 97% 07/11/2023 1200 EST Inhaled Oxygen Concentration - - Weight - - Height - - Body Mass Index - - documented in this encounter Functional Status Functional [...] No 11/06/2019 documented as of this encounter Discharge Instructions * Discharge Instructions* Lacy Guan PA-C - 07/11/2023 14:15 EST You were seen in the ER for evaluation of dizziness. Your blood work and EKG were reassuring. Continue to do your usual home regimen for your migraine headaches. Take meclizine for dizziness. Rest, hydrate eat well and monitor symptoms. You have been referred to physical therapy for vestibular therapy. Follow-up with your PCP Return to the ER if worsening or concerns * Attachments The following attachments cannot be sent through Care Everywhere. * Vertigo (Tajik) documented in this encounter Medications at Time of Discharge Medication Sig Dispensed Refills Start Date End Date B COMPLEX-VITAMIN B12 tablet Take 1 Tablet by mouth at bedtime. 12/01/2022 escitalopram oxalate (LEXAPRO) 20 mg tablet Take 1 Tablet by mouth daily. famotidine (PEPCID) 20 mg tablet 10/20/2022 ibuprofen (MOTRIN) 400 mg tablet Take 1 Tab by mouth every 4 hours as needed for Pain. 01/09/2014 INTRAUTERINE DEVICE, IUD, INTRAUTERINE by intrauterine route. lamoTRIgine (LAMICTAL) 25 mg tablet Take 1 Tablet by mouth 2 times daily. 06/09/2023 levonorgestreL (MIRENA) 21 mcg/24 hours (8 yrs) 52 mg IUD by intrauterine route. lisinopriL (PRINIVIL) 10 mg tablet Take 1 Tablet by mouth daily. 06/19/2023 magnesium oxide (MAG-OX) 400 mg (241.3 mg magnesium) tablet Take 1 Tablet by mouth daily. meclizine (ANTIVERT) 25 mg tablet Take 1 Tablet by mouth 3 times daily as needed for Dizziness. 15 Tablet 07/11/2023 modafiniL (PROVIGIL) 200 mg tablet Take 1 Tablet by mouth 2 times daily. Multivitamins with Minerals tablet tablet Take 1 Tablet by mouth daily. mupirocin (BACTROBAN) 2 % ointment APPLY TOPICALLY EVERY 8 HOURS DIRECTED 03/10/2023 NAC 600 mg capsule Take 2 Capsules by mouth 2 times daily. 02/17/2023 omeprazole (PRILOSEC) 40 mg capsule Take 1 Capsule by mouth daily. 02/25/2023 ondansetron (ZOFRAN-ODT) 4 mg disintegrating tablet 11/10/2022 UNABLE TO FIND Med Name: Madeline [facility] [employer] probiotic B-complex with vitamin C (VITAMIN B COMPLEX-C ORAL) Take by mouth. 10/17/2023 budesonide (PULMICORT) 0.5 mg/2 mL nebulizer suspension 2mL in sinus rinse kit once daily 180 mL 3 10/18/2021 10/17/2023 loratadine (CLARITIN) 10 mg tablet Take 1 Tablet by mouth daily. 10/17/2023 meclizine (ANTIVERT) 25 mg tablet Take 1 Tablet by mouth as needed. 10/17/2023 montelukast (SINGULAIR) 10 mg tablet Take 10 mg by mouth daily. 10/17/2023 SUMAtriptan (IMITREX) 50 mg tablet Take 1 Tablet by mouth as needed for Migraine. 10/17/2023 documented as of this encounter Ordered Prescriptions Prescription Sig Dispensed Refills Start Date End Da te meclizine (ANTIVERT) 25 mg tablet Take 1 Tablet by mouth 3 times daily as needed for Dizziness. 15 Tablet 07/11/2023 documented in this encounter Discharge Disposition Disposition Code Departure Means Destination Comment s Home or Self Prison documented in this encounter ED Notes * Laurita Demarco - 07/11/2023 1156 EST Patient walked to the restroom, said she felt alittle dizzy, but much better than when she came in,walked with no assist. * Susan Wilkerson RN - 07/11/2023 1120 EST Pt resting on stretcher with eyes closed and sunglasses on. States she feels slightly better * Shrelyn Diaz RN - 07/11/2023 1025 EST Mother Judit, [phone]. Pt asked if we could call her mom to tell her she was in the ED * Lacy Guan PA-C - 07/11/2023 0932 EST Emergency Department Visit Medical Decision Making 42 y.o. female with a history of migraine headaches, anxiety, depression, vertigo, narcolepsy who presents to the ED for evaluation of headache and dizziness. Dizziness described as room spinning. Consistent with prior episodes of vertigo, especially after Casey. Patient had COVID 3 weeks ago. Exacerbated by eye movement and head positional changes. Headache similar to prior migraines with a frontal throbbing, associated nausea and photophobia. Isnot the worst headache of her life and it was of gradual onset, denies thunderclap. On exam, patient has sunglasses on and appears to be quite photophobic. She has no focal neurologicdeficits on exam. Plan to treat for migraine headache, meclizine given for vertiginous symptoms and will reevaluate. Electrolyte abnormality, stroke considered but unlikely, labyrinthitis, vertigo, migraine headache. Patient's headache improved, although not resolved, as along with dizziness. Patient looks much better. She was able to ambulate steadily to the bathroom. He did attempt an Giovanna and Margy-Hallpike without success. Case reviewed with Dr. Shea. Plan for discharge with meclizine for symptom control. Patient awareto follow-up with PCP and return to the emergency department if worsening or concerns. This ER return precautions were given. An EKG was obtained and independently interpreted.Laboratory data was reviewed. Medical Decision Making Problems Addressed: Dizziness: complicated acute illness or injury Amount and/or Complexity of Data Reviewed Labs: ordered. Risk Prescription drug management. Final diagnoses: Dizziness Disposition: Discharged Chief complaint: Dizziness HPI Yolette Gonzalez is a 42 y.o. female with a history of migraine headaches, anxiety, depression, vertigo, narcolepsy who presents to the ED for evaluation of headache and dizziness. Patient reports that for the last 5 or so days she has felt dizzy, described as room spinning. Symptoms exacerbated byhead and eye movements. She reports having similar symptoms before, when she was diagnosed with vertigo. She had tried to manage at home over the last few days. This morning she woke up feeling better and attempted to drive, however when she was driving the spinning sensation returned and she called EMS. She also reports having a headache similar to her prior migraines. It was of gradual onset and is not the worst of her life. It is located frontally is throbbing and associated with nausea and photophobia. She denies weakness, trouble with speech, chest pain or other concerns today. She has an upcoming appointment with a new neurologist for her headaches. History was provided by: Patient Records reviewed include: None Patient's pertinent PMH, FH, SH were reviewed and edited as necessary. Nursing notes reviewed. A medical screening exam was performed. Physical Exam BP 125/72 Temp 36.5 ??C (97.7 ??F) (Oral) Resp 18 SpO2 97% Physical Exam Constitutional: General: She is in acute distress. Appearance: Normal appearance. She is not toxic-appearing. HENT: Head: Normocephalic and atraumatic. Nose: Nose normal. Mouth/Throat: Mouth: Mucous membranes are moist. Eyes: Extraocular Movements: Extraocular movements intact. Right eye: No nystagmus. Left eye: No nystagmus. Conjunctiva/sclera: Conjunctivae normal. Pupils: Pupils are equal, round, and reactive to light. Cardiovascular: Rate and Rhythm: Normal rate and regular rhythm. Heart sounds: Normal heart sounds. Pulmonary: Effort: Pulmonary effort is normal. Breath sounds: Normal breath sounds. Abdominal: General: Abdomen is flat. Palpations: Abdomen is soft. Tenderness: There is no abdominal tenderness. Musculoskeletal: General: Normal range of motion. Cervical back: Normal range of motion. Skin: General: Skin is warm and dry. Neurological: Mental Status: She is alert. Cranial Nerves: Cranial nerves 2-12 are intact. Sensory: Sensation is intact. Motor: Motor function is intact. Coordination: Hispfe-Smkb-Kcrpau Test normal. Procedures Procedures documented in this encounter Plan of Treatment Upcoming Encounters Date Type Department Care Team (Late st Contact Info) Description 01/31/2024 10:15 EDT Telemedicine [facility] Neurology - [address] [id number] Med Maldonado MD [address] [place] [address], [address] [place] [id number] 08/31/2024 9:40 EST Appointment Naz Perez [address] [address] Scheduled Referrals Name Type Priority Associated Diagnoses Order Schedule AMB CONS/FOLLOW UP PHYSICAL THERAPY - OUTSIDE OF NETWORK Outpatient Referral Routine/Next Available Dizziness Expected: 07/18/2023 (Approximate), Expires: 07/11/2024 documented as of this encounter Procedures Procedure Name Priority Date/Time Associated Diagnosis Comments ECG REPORT - SCANNED 07/11/2023 19:30 EST COMPLETE BLOOD COUNT AND DIFFERENTIAL STAT 07/11/2023 10:14 EST MAGNESIUM STAT 07/11/2023 10:14 EST COMPREHENSIVE METABOLIC PANEL (CMP) STAT 07/11/2023 10:14 EST EKG 12-LEAD STAT 07/11/2023 10:11 EST documented in this encounter Results * ECG REPORT - SCANNED (07/11/2023 19:30 EST) 07/11/2023 19:3 0 EST Scan 2 Bus System Operator PROCEDURE/MINOR ESVIN GICAL ORDERABLES * MAGNESIUM (07/11/2023 10:14 EST) Magnesium 1.8 1.7 - 2.8 mg/dL 07/11/2023 10:41 EST [facility] Blood VENOUS BLOOD / Unknown Venipuncture / Unknown 07/11/2023 10:14 EST 07/11/2023 10:22 EST Lacy Guan PA-C CHEMISTRY & BLOOD GAS ORDERABLES [facility] [address] [place] [address] * (ABNORMAL) COMPREHENSIVE METABOLIC PANEL (CMP) (07/11/2023 10:14 EST) Sodium 141 136 - 145 mmol/L 07/11/2023 10:41 EST [facility] Potassium 4.2 3.5 - 5.0 mmol/L 07/11/2023 10:41 [facility] Chloride 107 96 - 110 mmol/L 07/11/2023 10:41 [facility] CO2 Total 26 22 - 32 mmol/L 07/11/2023 10:41 [facility] Glucose 131(H) 70 - 99 mg/dl 07/11/2023 10:41 [facility] BUN 17 10 - 26 mg/dL 07/11/2023 10:41 [facility] Creatinine 0.44(L) 0.52 - 1.04 mg/dL 07/11/2023 10:41 [facility] eGFR 125 >60 mL/min/1.7 3m2 07/11/2023 10:41 [facility] Total Protein 7.1 6.3 - 8.2 g/dL 07/11/2023 10:41 [facility] Albumin 4.3 3.4 - 4.9 g/dL 07/11/2023 10:41 [facility] Alkaline Phosphatase 65 38 - 126 U/L 07/11/2023 10:41 [facility] AST 25 15 - 46 U/L 07/11/2023 10:41 [facility] ALT 26 <35 U/L 07/11/2023 10:41 [facility] Bilirubin, Total 0.5 <1.4 mg/dL 07/11/19 10:41 [facility] Calcium 9.5 8.5 - 10.5 mg/dL 07/11/2023 10:41 [facility] Albumin/Globulin Ratio 1.5 1.0 - 2.5 g/dL 07/11/2023 10:41 [facility] Anion Gap 8 5 - 14 mmol/L 07/11/2023 10:41 [facility] Blood VENOUS BLOOD / Unknown Venipuncture / Unknown 07/11/2023 10:14 EST 07/11/2023 10:22 EST Lacy Guan PA-C CHEMISTRY & BLOOD GAS ORDERABLES [facility] [address] [place] [address] * COMPLETE BLOOD COUNT AND DIFFERENTIAL (07/11/2023 10:14 EST) WBC 9.38 4.00 - 12.40 K/cmm 07/11/2023 10:26 [facility] RBC 4.42 3.86 - 5.04 M/cmm 07/11/2023 10:26 [facility] Hemoglobin 13.3 11.6 - 15.2 g/dL 07/11/2023 10:26 [facility] HCT 37.9 34.9 - 44.4 % 07/11/2023 10:26 [facility] MCV 86 81 - 98 fL 07/11/2023 10:26 [facility] MCH 30.1 26.7 - 33.3 pg 07/11/2023 10:26 [facility] MCHC 35.1 32.1 - 35.9 g/dL 07/11/2023 10:26 [facility] RDW-CV 12.8 <14.7 % 07/11/2023 10:26 [facility] RDW-SD 39.5 <50.4 fl 07/11/2023 10:26 [facility] PLT 284 141 - 377 K/cmm 07/11/2023 10:26 [facility] MPV 9.9 9.5 - 12.7 fL 07/11/2023 10:26 [facility] % Neutrophils 76.5 % 07/11/2023 10:26 [facility] % Lymphocytes 13.5 % 07/11/2023 10:26 [facility] % Monocytes 7.8 % 07/11/2023 10:26 [facility] % Eosinophils 1.3 % 07/11/2023 10:26 [facility] % Basophils 0.4 % 07/11/2023 10:26 [facility] % Immature Grans 0.5 % 07/11/19 10:26 [facility] Absolute Neutrophils 7.17 2.20 - 8.85 K/cmm 07/11/2023 10:26 [facility] Absolute Lymphocytes 1.27 1.09 - 3.30 K/cmm 07/11/2023 10:26 [facility] Absolute Monocytes 0.73 0.10 - 0.80 K/cmm 07/11/2023 10:26 EST [facility] Absolute Eosinophils 0.12 0.03 - 0.61 K/cmm 07/11/2023 10:26 EST [facility] ABS Basophils 0.04 0.01 - 0.11 K/cmm 07/11/2023 10:26 [facility] Absolute Immature Grans 0.05 0.00 - 0.06 K/cmm 07/11/2023 10:26 [facility] Type of Differential: Auto 07/11/2023 10:26 [facility] Blood VENOUS BLOOD / Unknown Venipuncture / Unknown 07/11/2023 10:14 EST 07/11/2023 10:22 EST Lacy Guan PA-C PACKAGES & DNA PRO BE ORDERABLES Performing Organization Address City/State/[facility] Co de Phone Number [facility] [address] [place] [address] * EKG 12-LEAD (07/11/2023 10:11 EST) 07/11/2023 10:1 1 EST Narrative [facility] - 07/11/2023 12:02 EST ? [facility] ? Test Date: ?2023-07-11 Pat Name: ? YOLETTE LINDANISSAADRIENNE ? Department: ? Room: ? A04 Gender: ? Female ? 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 PL : ?1980 ? Requested By: CAMDEN COPELAND Order Number: [id number] ? Reading MD: ?? OLIVE LEE MD ? Measurements Intervals ?[place] ? Rate: ? 72 ? P: ?29 DE: ? 156 ?QRS: ?23 QRSD: ? 78 ? T: ?48 QT: ? 388 ? QTc: ?424 ? Interpretive Statements Normal sinus rhythm Low voltage QRS No previous ECG available for comparison I reviewed the tracing and have either agreed or edited the findings in this report. Electronically Signed On 07-11-2023 12:02:40 EST by OLIVE LEE MD. 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 Electronically Signed On 07-11-2023 12:02:40 EST by OLIVE ARRIAGA. Lacy Guan PA-C CARDIAC ECG ORDERA [facility] documented in this encounter Visit Diagnoses Diagnosis Dizziness- Primary Dizziness and giddiness documented in this encounter Administered Medications Inactive Administered Medications - up to 3 most recent administrations Medication Order MAR Action Action Date Dose Rate Site diphenhydrAMINE (BENADRYL) injection 25 mg 25 mg, intravenous, NOW X1, 1 dose, On Mon07/11/23 at 1030, STAT Given 07/11/2023 10:14 EST 25 mg ketOROLAC (TORADOL) injection 15 mg 15 mg, intravenous, NOW X1, 1 dose, On Mon07/11/23 at 1030, STAT Given 07/11/2023 10:14 EST 15 mg meclizine (ANTIVERT) tablet 25 mg 25 mg, oral, NOW X1, 1 dose, On Mon07/11/23 at 1030, STAT Given 07/11/2023 10:42 EST 25 mg metoclopramide (REGLAN) injection 10 mg 10 mg, intravenous, NOW X1, 1 dose, On Tu07/11/23 at 1030, STAT Given 07/11/2023 10:14 EST 10 mg sodium chloride 0.9 % BOLUS 1,000 mL 1,000 mL, intravenous, NOW X1, 1 dose, On 07/11/23 at 1030, STAT New Bag 07/11/2023 10:14 EST 1,000 mL documented in this encounter Discontinued Medications Medication Sig Discontinue Reason Start Date End Da te escitalopram oxalate (LEXAPRO) 10 mg tablet Take 2 Tablets by mouth daily. 07/11/2023 omeprazole (PRILOSEC) 20 mg capsule Take 2 Capsules by mouth daily. 07/11/2023 lamoTRIgine (LAMICTAL) 25 mg tablet 2 times daily. 02/09/2023 07/11/2023 acetylcysteine (NAC ORAL) Take 1,200 mg by mouth 2 times daily. 07/11/2023 documented as of this encounter Historical Medications * This list may reflect changes made after this encounter. Medication Sig Dispensed Refills Start Date End Date levonorgestreL (MIRENA) 21 mcg/24 hours (8 yrs) 52 mg IUD by intrauterine route. ondansetron (ZOFRAN-ODT) 4 mg disintegrating tablet 11/10/2022 omeprazole (PRILOSEC) 40 mg capsule Take 1 Capsule by mouth daily. 02/25/2023 lamoTRIgine (LAMICTAL) 25 mg tablet Take 1 Tablet by mouth 2 times daily. 06/09/2023 escitalopram oxalate (LEXAPRO) 20 mg tablet Take 1 Tablet by mouth daily. NAC 600 mg capsule Take 2 Capsules by mouth 2 times daily. 02/17/2023 B COMPLEX-VITAMIN B12 tablet Take 1 Tablet by mouth at bedtime. 12/01/2022 mupirocin (BACTROBAN) 2 % ointment APPLY TOPICALLY EVERY 8 HOURS DIRECTED 03/10/2023 lisinopriL (PRINIVIL) 10 mg tablet Take 1 Tablet by mouth daily. 06/19/2023 added in this encounter Active and Recently Administered Medications Times are shown in EST. Scheduled Medication Order 07/09/2023 07/10/2023 07/11/2023 diphenhydrAMINE (BENADRYL) injection 25 mg (COMPLETED) 25 mg, intravenous, NOW X1, 1 dose, On Mon07/11/23 at 1030, STAT 1014 (Given - Provid er: Sherlyn Diaz RN) ketOROLAC (TORADOL) injection 15 mg (COMPLETED) 15 mg, intravenous, NOW X1, 1 dose, On Mon07/11/23 at 1030, STAT 1014 (Given - Provid er: Sherlyn Diaz RN) meclizine (ANTIVERT) tablet 25 mg (COMPLETED) 25 mg, oral, NOW X1, 1 dose, On Mon07/11/23 at 1030, STAT 1042 (Given - Provid er: Sherlyn Diaz RN) metoclopramide (REGLAN) injection 10 mg (COMPLETED) 10 mg, intravenous, NOW X1, 1 dose, On Mon07/11/23 at 1030, STAT 1014 (Given - Provid er: Sherlyn Diaz RN) sodium chloride 0.9 % BOLUS 1,000 mL (COMPLETED) 1,000 mL, intravenous, NOW X1, 1 dose, On Mon07/11/23 at 1030, STAT 1014 (New Bag - Prov ider: Sherlyn Diaz RN)[id number] (IV Stopped - Provider: Susan Wilkerson RN) documented in this encounter Care Teams Inspector Watch Parts Relationship Specialty Start Date End Date Angelic Silva APRN 26 [facility] [address] [place] [id number] PCP - General 03/06/23 documented as of this encounter
--- OUTSIDE RECORDS SUMMARY | 2024-01-26 12:51 | XMS_ITS | Encounter Summary ---
Author Organization [facility] Address [address] [place] [address] Care Team Providers Care Salesperson Hearing Aids Name Role Phone Morgan Panchal Primary Care Provider [phone] Angelic Silva APRN Primary Care Provider [phone] Encounter Details Date Type Department Care Team (Late st Contact Info) Description 11/24/2022 Lab Requisition [facility] Pathology & Laboratory Medicine - [facility] [address] [place], [place] [id number] Outr Resulting Lab, Provider Social History Tobacco Use Types Packs/Day Years [...] Contact Info) Description 01/31/2024 10:15 EDT Telemedicine [facility] Neurology - [address] [place], [place] [id number] Med Maldonado MD [address] [place] [address], [address] [place] [phone] 08/31/2024 9:40 EST Appointment Naz Perez [address] [address] documented as of this encounter Procedures Procedure Name Priority Date/Time Associated Diagnosis Comments ACUTE HEPATITIS PROFILE Routine 11/23/2022 15:50 EDT documented in this encounter Results * ACUTE HEPATITIS PROFILE (11/23/2022 15:50 EDT) Hep B Surface Ag Negative Negative 11/25/2022 10:09 EDT [facility] Hep C Antibody Negative Negative 11/25/2022 10:09 EDT [facility] Hepatitis A Antibody, IgM Negative Negative 11/25/2022 10:09 EDT [facility] Comment:The results of this assay can be falsely lowered due to the consumption of Biotin. Hepatitis B Core Ab, Total Negative Negative 11/25/2022 10:09 EDT [facility] Blood VENOUS BLOOD / Unknown 11/23/2022 15:50 EDT 11/24/2022 17:22 EDT Provider Outr Resulting Lab CHEMISTRY & BLOOD GAS ORDERABLES [facility] [address] [place] [address] documented in this encounter Visit Diagnoses Not on filedocumented in this encounter Care Teams Salesperson Hearing Aids Relationship Specialty Start Date End Date Morgan Panchal PA PCP - General 03/27/20 03/05/23 Angelic Silva APRN 26 [facility] [address] [place] [address] PCP - General 03/06/23 documented as of this encounter
--- OUTSIDE RECORDS SUMMARY | 2024-01-26 12:51 | XMS_ITS | Encounter Summary ---
Author Organization [facility] Address [address] [place] [address] Care Team Providers Care Workers Compensation Claims Specialist Name Role Phone Angelic Silva APRN Primary Care Provider [phone] Reason for Visit * Reason Comments New Patient Visit Headache * Referral (Routine) - Receiving Office to Obtain Authorization Specialty Diagnoses / Procedures Referred By Tito hernandez Referred To Contact Neurology Diagnoses Chronic tension-type headache, not intractable Unspecified nystagmus Angelic Silva, REGULATORY COMPLIANCE COORDINATOR [address] [facility] [address] [place] [address] Tina Cantu DO [address] [place] [phone] Referral ID Status Reason Start Date Expiration Date Visits Requested Visits Authorized [id number] Receiving Office to Obtain Authorization 1 1 Encounter Details Date Type Department Care Team (Late st Contact Info) Description 10/17/2023 14:00 EDT Office Visit [facility] Neurology - [address] [id number] Med Maldonado MD [address] [place] [phone] Chronic migraine without aura without status migrainosus, not intractable (Primary Dx) Social History Tobacco Use Types Packs/Day Years [...] Sign Reading Time Taken Comments Blood Pressure 130/82 10/17/2023 1400 EDT Pulse 97 10/17/2023 1400 EDT Temperature - - Respiratory Rate 12 10/17/2023 1400 EDT Oxygen Saturation 97% 10/17/2023 1400 EDT Inhaled Oxygen Concentration - - Weight 94.3 kg (208 lb) 10/17/2023 1400 EDT self -reported Height - - Body Mass Index 31.63 07/19/2023 1351 EST documented in this encounter [...] this encounter Patient Instructions * Patient Instructions* Med Maldonado MD - 10/17/2023 14:00 EDT 1. Acute therapy (As needed treatment for moderate to severe headache): --trial on rizatriptan. Do not take triptans more then 8 days per month. Consider taking with naproxen 550mg (2.5 tabs OTC aleve) with first dose of triptan to increase efficacy. --Limit ltoh-prt-aaicrab analgesics such as NSAIDs or Tylenol to no more than 3 times per week to avoid medication overuse headaches. Take no pain killer more than 6-12 days per month. --Hydrate with 32oz of fluid at onset of headache if possible 2. Preventive therapy (Daily to reduce frequency and severity of headache): --start amlodipine and titrate up slowly as tolerated --discontinue lisinopril 3. Supplements: Can be helpful for some patients with headaches. If you have not tried the following supplements, consider starting in a staggered approach and taking for a 2 month period: - Continue Magnesium 400mg nightly - side effects: loose stool and makes you sleepy (i.e. Calm Powder) - Riboflavin (Vit B2) 200mg twice a day - side effects: turns urine bright yellow - Fish Oil 1500mg daily (EPA/DHA) - side effects: rarely bad taste - Coenzyme Q10 200mg daily - side effects: energizing - Melatonin 3mg nightly - side effects: makes you sleepy 4. Heathy Habits/Nonpharmacological Treatments: It is important to maintain a routine and to continue to try to practice healthy lifestyle habits and avoid triggers. These include drinking at least 100 ounces of fluid daily, half of that with electrolytes (due to EDS/hypermobility); and if possible, consider a 2-3 month trial off of caffeine. Maintain a healthy diet and avoid skipping meals that could lead to hunger. Try to engage in moderate activity for at least 150 minutes a week and sustaina good sleep routine. Consider meditation and relaxation techniques 3-5 days per week. Obesity is arisk factor for migraine and losing weight can reduce headaches. Consider losing weight if you are not at your best, healthy weight. 5. Headache Calendars: Monitor your response to therapy, even if intermittently, and consider keeping a headache record to bring to follow up appointment. Track how many days you have headaches, how severe they are, when/what medications you take for them and, if appropriate, your menstrual cycle. These can be obtained from the front office specialist or click here at [facility] headache diary or Headache Calendar CELINE. You could also consider downloading the free Ap [place] Migraine Tracker. 6. Further work up and additional considerations: No additional work up needed at this time. 7. Acute Salvage Therapy (for severe migraine that will not go away despite home treatments): If you are considering going to the emergency department and it is business hours, please call office andconsider compazine, hydroxyzine, depakojamilah or a medrol dose pack. For non-urgent questions or concerns please send a message through mgMEDIA or, if a response is needed within 3 business days, please call [phone] and ask for the Headache Clinic Nurse. Follow up in 3 months. Sooner if worsening or other concerns. documented in this encounter Ordered Prescriptions Prescription Sig Dispensed Refills Start Date End Da te amLODIPine (NORVASC) 2.5 mg tablet Start with 1 tab (2.5mg) nightly and every 2 weeks increase by 1 tab as tolerated. Do not exceed 4 tabs (10mg) nightly. 90 Tablet 4 10/18/2023 rizatriptan (MAXALT) 10 mg tablet Take 1 tab at onset of headache, may repeat once in 2 hours if needed. Max of 2 tabs in 24 hours and 8 treatments per month. 12 Tablet 2 10/17/2023 documented in this encounter Progress Notes * Med Maldonado MD - 10/17/2023 1400 EDT HEADACHE CLINIC NEW PATIENT CONSULT NOTE Yolette Tellez is a 42 y.o.yo female seen in consultation at the request of Angelic Silva APRN for headache. I have reviewed the Adult New Patient Headache Qustionnaire from 11/29 for today's visit. Patient states they are here due to concerns of ongoing headaches, challenging to manage. I have so many things going on and I keep wondering if they're related. Chief Complaint Patient presents with New Patient Visit Headache HPI: The patient is a 42 y.o.right-hand dominant female with past medical history significant for borderline personality disorder, bipolar, depression with h/o suicidal thoughts and attempt, anxiety, JERMAN on CPAP, narcolepsy, HTN, and EDS who is here for evaluation of headaches starting at age 15. 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 Yolette Tellez notes in college headaches became most days of the week and has been debilitating since that time. At the time of filling out the questionnaire Yolette was having 28 headache days per month, 10 of them severe. Headaches typically occur for 10 hours (<48 hours) and typically are moderate, averaging 6/10 in pain (range 4-10/10). The onset of pain in >10 minutes. The pain is desc ribed as bilateral (band across forehead) or middle of head located in both temples, front, and topof head. Occasionally unilateral. It is described as throbbing, stabbing, pressure, sharp, and constant. Yolette denies aura but do have prodromal symptoms of irritability, anxiety, fatigue, depression, noise sensitivity, cloudy thinking, mood change, neck pain, stress, and smells. Headaches can be associated with difficulty thinking, neck pain, light/sound/smell sensitivity, decreased appetite, nausea,weakness, dizziness, and ringing in ears. Triggers include stress, smells, straining, sound, light,menstruation, weather, work, high altitude, too little sleep, concentration, and bending over. Stress, smells, sound, light, work, exercise, too little sleep, concentrating, and bending over can worsen headaches. Since completing the questionnaire Yolette contracted COVID in early July 2023 followed by severe vertigo that resulted in being bed bound for 1-2 weeks. In part of that work up was diagnosed with strabismus Vertigo improving since getting prisms in classes. Screening: PHQ-9 was 19; SAMIR-7 was 12; HIT-6 was 67; MIDAS score was 22 concerning for severe disability (severe >21). Self-reported ability to function during severe headache at school/work: 75% Treatment History *=Current, E=Effective, P=Partial, I=In Effective, (Side Effects/Notes) Acute: Tylenol: PE (not taking due to liver concerns, US pending) Advil: E (not taking due to concerns of kidney issues, Last GFR WNL) Sumatriptan: IE Excedrin: PE Zofran: E for nausea Preventative: *Lexapro 20mg: IE, for mood *Lisinopril 10mg: IE, for HTN *Magnesium Oxide 400mg: IE Lamictal 25mg BID: IE, for mood x 2-3 years and stopped 1 year ago Additional Medication Considerations: on BP medication, suicidal ideation/attempt (avoid Topamax, TCA), told by PCP to limit tylenol and Advil due to concerns of liver and kidney issues (recent test WNL), bipolar (no TCA or Cymbalta), JERMAN and narcolepsy (avoid Topamax, amitriptyline) Adjunctive Therapies: Currently with partial/limited benefit: apply cold, assistance, relaxation techniques, hydration, caffeine, peppermint/lavender/lemon oil, dim/quiet place, sleep, taking a break, filtering classes, sunglasses, chiropractor,and CBT. In past snacking, dietary changes, massage, counseling. Current Use of OTC Analgesics: 4 days of 30 Pertinent History: 08/02 COVID complicated by severe vertigo small fiber neuropathy borderline personality disorder bipolar depression with recent suicidal thinking and h/o multiple attempts, last 2019 ([place]) Anxiety Strabismus Vertigo not associated with headaches Nausea with or without headaches JERMAN on CPAP Narcolepsy ?liver and kidney issues HTN EDS/hypermobility concentration deficit learning disability dyslexia seasonal allergies 2018 Concussion without LOC Sexually active, IUD Providers Seen: PCP, eye doctor, counselor, sleep doctor ([facility]), psychiatrist ([facility]). Saw [place] in past. In the past rheumatology for EDS, ENT for vertigo. Pertinent Lifestyle Factors: 20-70oz daily, milk, OJ, water 7-10 caffeinated beverages per week no alcohol, nonsmoker, no other substances physically active 0-3 days per week Skips meals once daily 5-6.5 hrs sleep nightly, has dx narcolepsy and JERMAN on CPAP ([facility]). Past Medical History: Diagnosis Date Chickenpox Environmental allergies Gestational hypertension Heartburn Narcolepsy Numbness and tingling of foot Pap smear, abnormal ASCUS and HPV Patellar instability Bilateral School problem Sleep apnea Wears glasses Patient Active Problem List Diagnosis Date Noted Fat pad atrophy of foot 07/28/2020 Pain of right heel 07/21/2020 Borderline personality disorder (HCC-CMS) 08/08/2019 Adjustment disorder with mixed anxiety and depressed mood 08/01/2019 Obstructive sleep apnea syndrome 08/06/2019 Patellar instability of both knees 08/06/2019 Small fiber neuropathy 09/27/2012 Past Surgical History: Procedure Laterality Date COLPOSCOPY iud PATELLA SURGERY Right 2012 to prevent dislocation? WISDOM TOOTH EXTRACTION 1997 Outpatient Medications Marked as Taking for the 10/17/23 encounter (Office Visit) with Med Maldonado MD Medication Sig B COMPLEX-VITAMIN B12 tablet Take 1 Tablet by mouth at bedtime. escitalopram oxalate (LEXAPRO) 20 mg tablet Take 1 Tablet by mouth daily. famotidine (PEPCID) 20 mg tablet INTRAUTERINE DEVICE, IUD, INTRAUTERINE by intrauterine route. levonorgestreL (MIRENA) 21 mcg/24 hours (8 yrs) 52 mg IUD by intrauterine route. lisinopriL (PRINIVIL) 10 mg tablet Take 1 Tablet by mouth daily. magnesium oxide (MAG-OX) 400 mg (241.3 mg magnesium) tablet Take 1 Tablet by mouth daily. meclizine (ANTIVERT) 25 mg tablet Take 1 Tablet by mouth 3 times daily as needed for Dizziness. [DISCONTINUED] meclizine (ANTIVERT) 25 mg tablet Take 1 Tablet by mouth as needed. modafiniL (PROVIGIL) 200 mg tablet Take 1 Tablet by mouth 2 times daily. Multivitamins with Minerals tablet tablet Take 1 Tablet by mouth daily. mupirocin (BACTROBAN) 2 % ointment APPLY TOPICALLY EVERY 8 HOURS DIRECTED NAC 600 mg capsule Take 2 Capsules by mouth 2 times daily. omeprazole (PRILOSEC) 40 mg capsule Take 1 Capsule by mouth daily. ondansetron (ZOFRAN-ODT) 4 mg disintegrating tablet rizatriptan (MAXALT) 10 mg tablet Take 1 tab at onset of headache, may repeat once in 2 hours if needed. Max of 2 tabs in 24 hours and 8 treatments per month. UNABLE TO FIND Take 500 mg by mouth daily. Med Name: [place] UNABLE TO FIND Med Name: Madeline Syed from [employer], [email or web address] [facility] probiotic Allergies Allergen Reactions Other - See Comments Environmental Allergies Family History Problem Relation Age of Onset High Blood Pressure Mother High Cholesterol Mother Arthritis-Osteo Mother High Cholesterol Father Migraines Sister Arthritis-Osteo Sister has had surgeries on the knees. High Blood Pressure Maternal Grandfather Diabetes Maternal Grandfather High Cholesterol Maternal Grandfather Cancer Maternal Grandfather prostate Breast Cancer Neg Hx Social History Socioeconomic History Marital status: Legally Tobacco Use Smoking status: Never Smokeless tobacco: Never Substance and Sexual Activity Alcohol use: Yes Comment: rare- once a year Drug use: No ROS: A complete 16 point review of systems was completed on the new patient self assessment form. This form has been reviewed with the patient and was negative except as noted above and: fatigue, joint pain, numbness, weakness, dizziness, nasal congestion, and muscle aches. Physical Exam: BP 130/82 (BP Cuff Location: Right arm, BP Patient Position: Sitting, BP Cuff Sizes: Adult, regular) Pulse 97 Resp 12 Wt 94.3 kg (208 lb) Comment: self- reported SpO2 97% BMI 31.63 kg/m?? Gen: Pleasant, alert and oriented x 3, NAD Head: normocephalic, atraumatic Neck: supple, no lymphadenopathy, no thyromegaly, no carotid bruit CV: RRR, no m/r/g Resp: CTAB Ext: no cyanosis/ clubbing/ or edema Neurological Exam: Mental Status:Level of arousal: Awake and alert and oriented x3. Speech is non- dysarthric, languageand comprehension intact. Affect appropriate. Cranial Nerves:Pupils equally round and reactive to light at 4-3 mm bilaterally, extraocular movements intact. Visual valenzuela intact x4. Fundi show crisp optic disc margins. Facial strength and sensation are intact and symmetric. Uvula and tongue are midline. SCM strength good. Motor:Normal bulk and tone, no pronator drift, strength is 5/5 throughout Reflexes:Reflexes average and symmetric throughout. Plantar responses are flexor bilaterally. Sensation: Intact to light touch, temperature, pinprick, proprioception, vibration throughout Cerebellar Function: No dysmetria with finger to nose testing, rapid alternating movements normal, no ataxia with [id number], Romberg negative. Station and Gait: Heel walk normal, toe walk normal, tandem walk normal, gait unremarkable. Imaging and Labs: I personally reviewed the imaging and lab sections for this patient in Psychiatric. 06/04/16 MRI with and without contrast of head: Normal contrast enhanced MRI of the brain and internal auditory canals. 01/03/13 MRI with and without contrast of head: No intracranial abnormality identified. 08/07/11 MR Head, cervical and thoracic spine without contrast: 1. Unremarkable examination of the brain without evidence of demyelinating disease. 2. Unremarkable examinations of the cervical and thoracic spine without evidence of cord signal change, central canal compromise, or foraminal compromise. Results for orders placed or performed during the hospital encounter of 07/11/23 COMPLETE BLOOD COUNT AND DIFFERENTIAL Result Value Ref Range WBC 9.38 4.00 - 12.40 K/cmm RBC 4.42 3.86 - 5.04 M/cmm Hemoglobin 13.3 11.6 - 15.2 g/dL HCT 37.9 34.9 - 44.4 % MCV 86 81 - 98 fL MCH 30.1 26.7 - 33.3 pg MCHC 35.1 32.1 - 35.9 g/dL RDW-CV 12.8 <14.7 % RDW-SD 39.5 <50.4 fl PLT 284 141 - 377 K/cmm MPV 9.9 9.5 - 12.7 fL % Neutrophils 76.5 % % Lymphocytes 13.5 % % Monocytes 7.8 % % Eosinophils 1.3 % % Basophils 0.4 % % Immature Grans 0.5 % Absolute Neutrophils 7.17 2.20 - 8.85 K/cmm Absolute Lymphocytes 1.27 1.09 - 3.30 K/cmm Absolute Monocytes 0.73 0.10 - 0.80 K/cmm Absolute Eosinophils 0.12 0.03 - 0.61 K/cmm ABS Basophils 0.04 0.01 - 0.11 K/cmm Absolute Immature Grans 0.05 0.00 - 0.06 K/cmm Type of Differential: Auto COMPREHENSIVE METABOLIC PANEL (CMP) Result Value Ref Range Sodium 141 136 - 145 mmol/L Potassium 4.2 3.5 - 5.0 mmol/L Chloride 107 96 - 110 mmol/L CO2 Total 26 22 - 32 mmol/L Glucose 131 (H) 70 - 99 mg/dl BUN 17 10 - 26 mg/dL Creatinine 0.44 (L) 0.52 - 1.04 mg/dL eGFR 125 >60 mL/min/1.73m2 Total Protein 7.1 6.3 - 8.2 g/dL Albumin 4.3 3.4 - 4.9 g/dL Alkaline Phosphatase 65 38 - 126 U/L AST 25 15 - 46 U/L ALT 26 <35 U/L Bilirubin, Total 0.5 <1.4 mg/dL Calcium 9.5 8.5 - 10.5 mg/dL Albumin/Globulin Ratio 1.5 1.0 - 2.5 g/dL Anion Gap 8 5 - 14 mmol/L MAGNESIUM Result Value Ref Range Magnesium 1.8 1.7 - 2.8 mg/dL ASSESSMENT/PLAN: Yolette Tellez is a 42 y.o. year old female with PMH significant for borderline personality disorder, bipolar with h/o multiple suicide attempt, anxiety, JERMAN on CPAP, narcolepsy, HTN, and EDS presenting with chronic migraine without aura starting in college. Exam and imaging reassuring Patient has never tried migraine-specific treatments, however, she has multiple comorbidities that make treatment challenging. We reviewed Yolette's diagnosis, I answered questions, and the following plan was discussed: 1. Acute therapy (As needed treatment for moderate to severe headache): --trial on rizatriptan. Do not take triptans more then 8 days per month. Consider taking with naproxen 550mg (2.5 tabs OTC aleve) with first dose of triptan to increase efficacy. --Limit ckpu-ohe-dhtceve analgesics such as NSAIDs or Tylenol to no more than 3 times per week to avoid medication overuse headaches. Take no pain killer more than 6-12 days per month. --Hydrate with 32oz of fluid at onset of headache if possible 2. Preventive therapy (Daily to reduce frequency and severity of headache): --will talk with PCP about amlodipine v.s candasartan. 3. Supplements: Can be helpful for some patients with headaches. If you have not tried the following supplements, consider starting in a staggered approach and taking for a 2 month period: - Continue Magnesium 400mg nightly - side effects: loose stool and makes you sleepy (i.e. Calm Powder) - Riboflavin (Vit B2) 200mg twice a day - side effects: turns urine bright yellow - Fish Oil 1500mg daily (EPA/DHA) - side effects: rarely bad taste - Coenzyme Q10 200mg daily - side effects: energizing - Melatonin 3mg nightly - side effects: makes you sleepy 4. Heathy Habits/Nonpharmacological Treatments: It is important to maintain a routine and to continue to try to practice healthy lifestyle habits and avoid triggers. These include drinking at least 100 ounces of fluid daily, half of that with electrolytes (due to EDS/hypermobility); and if possible, consider a 2-3 month trial off of caffeine. Maintain a healthy diet and avoid skipping meals that could lead to hunger. Try to engage in moderate activity for at least 150 minutes a week and sustaina good sleep routine. Consider meditation and relaxation techniques 3-5 days per week. Obesity is arisk factor for migraine and losing weight can reduce headaches. Consider losing weight if you are not at your best, healthy weight. 5. Headache Calendars: Monitor your response to therapy, even if intermittently, and consider keeping a headache record to bring to follow up appointment. Track how many days you have headaches, how severe they are, when/what medications you take for them and, if appropriate, your menstrual cycle. These can be obtained from the front office specialist or click here at [facility] headache diary or Headache CalendarNAV. You could also consider downloading the free Ap [place] Migraine Tracker. 6. Further work up and additional considerations: No additional work up needed at this time. 7. Acute Salvage Therapy (for severe migraine that will not go away despite home treatments): If you are considering going to the emergency department and it is business hours, please call office andconsider compazine, hydroxyzine, depakote or a medrol dose pack. For non-urgent questions or concerns please send a message through mgMEDIA or, if a response is needed within 3 business days, please call [phone] and ask for the Headache Clinic Nurse. Follow up in 3 months. Sooner if worsening or other concerns. If above is not effective, additional therapies that could be discussed at future visits include: candesartan (best evidence, but would cost more), gepants (OK for nurse to call in), botox, CGRP mABs, and Depakote. I spent a total of 81 minutes on the date of this encounter meeting with the patient and reviewing documentation/coordinating care as described in the above note. Yolette Tellez was discussed with attending Valarie Salazar MD. Med Hammond MD Headache Fellow There are no diagnoses linked to this encounter. 10/16/2023 9:15 Cc: Angelic Silva * Med Maldonado MD - 10/17/2023 1400 EDT PCP away. Reviewed chart. No indication renal disease. D/c'ed lisinopril (appears to have a primaryindication of HTN only) and started amlodipine, nurse to notify PCP upon return. documented in this encounter Plan of Treatment Upcoming Encounters Date Type Department Care Team (Late st Contact Info) Description 01/31/2024 10:15 EDT Telemedicine [facility] Neurology - [address] [place] [address] [place], [place] [id number] eMd Maldonado MD [address] [place] [address], [address] [place] [phone] 08/31/2024 9:40 EST Appointment Naz Perez [address] [id number] documented as of this encounter Visit Diagnoses Diagnosis Chronic migraine without aura without status migrainosus, not intractable- Primary Chronic migraine without aura, without mention of intractable migraine without mention of status migrainosus documented in this encounter Discontinued Medications Medication Sig Discontinue Reason Start Date End Da te B-complex with vitamin C (VITAMIN B COMPLEX-C ORAL) Take by mouth. Therapy completed 10/17/2023 budesonide (PULMICORT) 0.5 mg/2 mL nebulizer suspension 2mL in sinus rinse kit once daily Therapy completed 10/18/2021 10/17/2023 loratadine (CLARITIN) 10 mg tablet Take 1 Tablet by mouth daily. Therapy completed 10/17/2023 montelukast (SINGULAIR) 10 mg tablet Take 10 mg by mouth daily. Therapy completed 10/17/2023 SUMAtriptan (IMITREX) 50 mg tablet Take 1 Tablet by mouth as needed for Migraine. Therapy completed 10/17/2023 meclizine (ANTIVERT) 25 mg tablet Take 1 Tablet by mouth as needed. Therapy completed 10/17/2023 documented as of this encounter Historical Medications * This list may reflect changes made after this encounter. Medication Sig Dispensed Refills Start Date End Date UNABLE TO FIND Take 500 mg by mouth daily. Med Name: Tumeric added in this encounter Care Teams Workers Compensation Claims Specialist Relationship Specialty Start Date End Date Angelic Silva APRN [phone] [id number] PCP - General 03/06/23 documented as of this encounter
--- OUTSIDE RECORDS SUMMARY | 2024-01-26 12:51 | XMS_ITS | Encounter Summary ---
Author Organization [facility] Address [address] [place] [address] Care Team Providers Care Racing Car Driver Name Role Phone Angelic Silva APRN Primary Care Provider [phone] Reason for Visit * Reason Comments Back Pain Intermittent lower b ack pain since 2019 when she was dx with compressed lumbar discs. Has had PT and seen a chiropractor without relief. Pain progressively getting worse and starting to move up back. Hx of Ehler's Danlos syndrome. Encounter Details Date Type Department Care Team (Late st Contact Info) Description 03/06/2023 20:00 EDT - 03/06/2023 21:10 EDT Hospital Encounter [facility] - [facility] [address] [place] [id number] Andreia Ornelas, PAJakeC [address] [facility], [address] [place] [id number] Lumbar back pain (Primary Dx) Discharge Disposition: Home or Self [...] Sign Reading Time Taken Comments Blood Pressure 160/80 03/06/20231940 EDT Pulse 97 03/06/20231940 EDT Temperature 36.6 ??C (97.8 ??F) 03/06/20231940 EDT Respiratory Rate 18 03/06/20231940 EDT Oxygen Saturation 96% 03/06/20231940 EDT Inhaled Oxygen Concentration - - Weight - [...] this encounter Discharge Instructions * Discharge Instructions* Andreia Ornelas PA-C - 03/06/2023 21:03 EDT You have been seen and evaluated today for your longstanding back pain which has been worsening as of late. We have done imaging today and we are still waiting on the radiologist report from this. However, in my review, I am not seeing any marked changes from past imaging in 2020. We will call you should there be any pertinent findings after the radiologist review today. At present, I would like you to begin using Tylenol more routinely. You may take this every 6-8 hours as per the package instructions. Please try to take this over the course the next 3 to 5 days to see if this is able to alleviate any of your symptoms. You may continue with your regularly scheduled chiropractic appointments, though I would let them know of your ongoing symptoms. Please follow-up with your primary care provider. I would also encourage you to think about doing PT as we discussed today. documented in this encounter Medications at Time of Discharge Medication Sig Dispensed Refills Start Date End Date B COMPLEX-VITAMIN B12 tablet Take 1 Tablet by mouth at bedtime. 12/01/2022 famotidine (PEPCID) 20 mg tablet 10/20/2022 ibuprofen (MOTRIN) 400 mg tablet Take 1 Tab by mouth every 4 hours as needed for Pain. 01/09/2014 INTRAUTERINE DEVICE, IUD, INTRAUTERINE by intrauterine route. modafiniL (PROVIGIL) 200 mg tablet Take 1 [...] FIND Med Name: Madeline Syed from [employer], [employer] [facility] probiotic budesonide (PULMICORT) 0.5 mg/2 mL nebulizer suspension 2mL in sinus rinse kit once daily 180 mL 3 10/18/2021 10/17/2023 escitalopram oxalate (LEXAPRO) 10 mg tablet Take 2 Tablets by mouth daily. 07/11/2023 esomeprazole (NEXIUM) 40 mg capsule Take 1 Capsule by mouth daily. 02/25/2023 05/10/2023 lamoTRIgine (LAMICTAL) 25 mg tablet 2 times daily. 02/09/2023 07/11/2023 meclizine (ANTIVERT) 25 mg tablet Take 1 Tablet by mouth as needed. 10/17/2023 montelukast (SINGULAIR) 10 mg tablet Take 10 mg by mouth daily. 10/17/2023 omeprazole (PRILOSEC) 20 mg capsule Take 2 Capsules by mouth daily. 07/11/2023 SUMAtriptan (IMITREX) 50 mg tablet Take 1 Tablet by mouth as needed for Migraine. 10/17/2023 documented as of this encounter Discharge Disposition Disposition Code Departure Means Destination Comment s Home or Self Correction documented in this encounter ED Notes * Andreia Ornelas PA-C - 03/06/20232109 EDT DOS: 03/06/2023 Chief Complaint: Chief Complaint Patient presents with ??? Back Pain Intermittent lower back pain since 2019 when she was dx with compressed lumbar discs. Has had PT and seen a chiropractor without relief. Pain progressively getting worse and starting to move up back.Hx of Ehler's Danlos syndrome. Assessment and Plan Patient is a 42-year-old female with a longstanding history of back pain that has become worse overthe course of the past 1 to 2 months. Imaging today did not demonstrate marked change from prior imaging with last images reviewed from 2020, though still waiting on radiology read. At present, have encouraged her to take Tylenol more routinely for the next 3 to 5 days following the packaging instructions. Advised follow-up with her primary care provider and encouraged her to consider resuming PT. Final diagnoses: Lumbar back pain Procedures No results found for this visit on 03/06/23. Radiology orders: XR LUMBAR SPINE 2-3 VIEWS Consult orders: None Imaging Results XR LUMBAR SPINE 2-3 VIEWS (In process) Result time 03/06/23 20:42:11 No orders to display The patient is a 42 y.o. female who presents today with Back Pain (Intermittent lower back pain since 2019 when she was dx with compressed lumbar discs. Has had PT and seen a chiropractor without relief. Pain progressively getting worse and starting to move up back. Hx of Ehler's Danlos syndrome.) Patient is a 42-year-old female who is presenting today with a history of chronic low back pain that has become worse over the course the past 1 to 2 months with a marked increase in symptoms in the past 2 to 3 days. She notes that she has a history of Susan-Danlos and that she was diagnosed with c ompressed lumbar disks in 2019. Notes that she has had intermittent symptoms that have waxed and waned over course of decades. Notes that over the course the past 1 to 2 months symptoms have become more frequent, and increased in severity. She, as a result, set up a series of appointments with a chiropractor and has been seeing them weekly for the past 3 weeks with a last appointment on 03/02. 2 to 3 days ago, she noted worsening of symptoms which she describes as pain through the spine. She notes that she has small neuropathy but that she has not had any increase in the symptoms over the course of her increasing back pain. She denies any numbness or tingling into the lower extremities or any radicular symptoms. She denies any fevers, chills, or sweats. She denies any bowel or bladder symptoms. She notes that she has been taking Tylenol and Arnica, though admits that she has been taking the Tylenol routinely and that the last dose was yesterday. She notes that she has done PT in the past for the symptoms but without any improvement of symptoms. She notes that she has a family historyof gallbladder disease and that she has been seen by the airport clerk on 03/08 for evaluation.She denies any change in back pain in relationship to meals. She denies any pain to the upper back or in the abdomen. She denies any nausea, vomiting, or diarrhea. Review of Systems Constitutional: Negative for chills, fatigue and fever. HENT: Negative. Respiratory: Negative. Cardiovascular: Negative. Gastrointestinal: Negative. Genitourinary: Negative. Musculoskeletal: Positive for back pain. Skin: Negative. Neurological: Negative. Psychiatric/Behavioral: Negative. No current facility-administered medications for this encounter. Current Outpatient Medications Medication Sig Dispense Refill ??? budesonide (PULMICORT) 0.5 mg/2 mL nebulizer suspension 2mL in sinus rinse kit once daily 180 mL 3 ??? escitalopram oxalate (LEXAPRO) 10 mg tablet Take 2 Tablets by mouth daily. ??? famotidine (PEPCID) 20 mg tablet ??? ibuprofen (MOTRIN) 400 mg tablet Take 1 Tab by mouth every 4 hours as needed for Pain. ??? INTRAUTERINE DEVICE, IUD, INTRAUTERINE by intrauterine route. ??? lamoTRIgine (LAMICTAL) 25 mg tablet TAKE 2 TABLETS BY MOUTH EVERY DAY, CONTINUE TO MONITOR FOR RASH ??? meclizine (ANTIVERT) 25 mg tablet Take 25 mg by mouth as needed. ??? modafiniL (PROVIGIL) 200 mg tablet Take 1 Tablet by mouth daily. ??? montelukast (SINGULAIR) 10 mg tablet Take 10 mg by mouth daily. ??? Multivitamins with Minerals tablet tablet Take 1 Tab by mouth daily. ??? omeprazole (PRILOSEC) 20 mg capsule Take 1 Capsule by mouth daily. ??? SUMAtriptan (IMITREX) 50 mg tablet Take 50 mg by mouth as needed for Migraine. ??? UNABLE TO FIND Med Name: Madeline Syed from [employer], [employer] [facility] probiotic Allergies Allergen Reactions ??? Other - See Comments Environmental Allergies Patient Active Problem List Diagnosis Date Noted ??? Fat pad atrophy of foot 07/28/2020 ??? Pain of right heel 07/21/2020 ??? Borderline personality disorder (HCC-CMS) ([facility]) 08/08/2019 ??? Adjustment disorder with mixed anxiety and depressed mood 08/01/2019 ??? Obstructive sleep apnea syndrome 08/06/2019 Diagnosed in 2018 in [facility]. On CPAP but not using currently. ??? Patellar instability of both knees 08/06/2019 S/P surgery on right patella without benefit. Frequent dislocation ??? Small fiber neuropathy 09/27/2012 Past Medical History: Diagnosis Date ??? Chickenpox ??? Environmental allergies ??? Gestational hypertension ??? Heartburn ??? Narcolepsy ??? Numbness and tingling of foot ??? Pap smear, abnormal ASCUS and HPV ??? Patellar instability Bilateral ??? School problem ??? Sleep apnea ??? Wears glasses Social History Tobacco Use ??? Smoking status: Never ??? Smokeless tobacco: Never Substance Use Topics ??? Alcohol use: Yes Comment: rare- once a year ??? Drug use: No Family History Problem Relation Age of Onset ??? High Blood Pressure Mother ??? High Cholesterol Mother ??? Arthritis-Osteo Mother ??? High Cholesterol Father ??? High Blood Pressure Maternal Grandfather ??? Diabetes Maternal Grandfather ??? High Cholesterol Maternal Grandfather ??? Cancer Maternal Grandfather prostate ??? Arthritis-Osteo Sister has had surgeries on the knees. BP (!) 160/80 Pulse 97 Temp 97.8 ??F (36.6 ??C) (Temporal) Resp 18 SpO2 96% Physical Exam Constitutional: Appearance: Normal appearance. HENT: Head: Normocephalic and atraumatic. Nose: Nose normal. Eyes: Pupils: Pupils are equal, round, and reactive to light. Cardiovascular: Rate and Rhythm: Normal rate and regular rhythm. Pulses: Normal pulses. Heart sounds: Normal heart sounds. Pulmonary: Effort: Pulmonary effort is normal. Breath sounds: Normal breath sounds. Abdominal: General: Abdomen is flat. Bowel sounds are normal. Palpations: Abdomen is soft. Musculoskeletal: General: Normal range of motion. Cervical back: Normal range of motion and neck supple. Comments: Nontender to palpation of spine. Mild tenderness noticed on the right paraspinal region. Skin: General: Skin is warm and dry. Capillary Refill: Capillary refill takes less than 2 seconds. Neurological: General: No focal deficit present. Mental Status: She is alert and oriented to person, place, and time. Sensory: No sensory deficit. Deep Tendon Reflexes: Reflexes normal. Psychiatric: Mood and Affect: Mood normal. Behavior: Behavior normal. PCP: Angelic Silva Urgent Care Course A medical screening exam was performed. DISPOSITION: Discharged The patient's pain was managed to an adequate level weighing risk vs. benefit of further medications. Upon departure from [facility], the patient's pain was 2 on a zero to ten scale. Any further pain treatment will be at the discretion of the provider following up with the patient based on their clinical assessment . Condition at departure from the [facility] : Stable MDM 03/06/2023 21:13 * Bobby Ferguson RN - 03/06/2023 193 EDT Back Pain (Intermittent lower back pain since 2019 when she was dx with compressed lumbar discs. Has had PT and seen a chiropractor without relief. Pain progressively getting worse and starting to move up back. Hx of Ehler's Danlos syndrome.) And small neuropathy. documented in this encounter Plan of Treatment Upcoming Encounters Date Type Department Care Team (Late st Contact Info) Description 01/31/2024 10:15 EDT Telemedicine [facility] Neurology - [address] [address] Med Maldonado MD [address] [facility], [address] [place] [address] 08/31/2024 9:40 EST Appointment Naz Perez [facility] [address] [place] [address] documented as of this encounter Procedures Procedure Name Priority Date/Time Associated Diagnosis Comments XR LUMBAR SPINE 2-3 VIEWS STAT 03/06/2023 20:52 EDT documented in this encounter Results * XR LUMBAR SPINE 2-3 VIEWS (03/06/2023 20:52 EDT) Anatomical Region Laterality Modality Spine Computed Radiogr aphy 03/06/2023 21:1 2 EDT Impressions 03/06/2023 21:12 EDT Findings/ Impression: No fractures or bony misalignments are present within the lumbar spine. The vertebral body heights and intervertebral disc spaces are preserved aside from mild joint space loss at L5-S1. This finding is little changed since 2020. The SI joints are unremarkable. There is a T-shaped IUD within the pelvis. IMPRESSION: Stable degenerative disc disease at L5-S1. [id number] Narrative 03/06/2023 21:12 EDT XR LUMBAR SPINE 2-3 VIEWS ??03/06/2023 8:45 PM Clinical History/Comments: long0-standing upper lumbar pain,; Comparison: 09/08/2020 Technique: 2 views of the lumbar spine. Procedure Note Felix Ornelas MD - 03/06/2023 XR LUMBAR SPINE 2-3 VIEWS 03/06/2023 8:45 PM Clinical History/Comments: long0-standing upper lumbar pain,; Comparison: 09/08/2020 Technique: 2 views of the lumbar spine. IMPRESSION Findings/ Impression: No fractures or bony misalignments are present within the lumbar spine.The vertebral body heights and intervertebral disc spaces are preservedaside from mild joint space loss at L5-S1. This finding is little changedsince 2020. The SI joints are unremarkable. There is a T-shaped IUD within thepelvis. IMPRESSION: Stable degenerative disc disease at L5-S1. [id number] Andreia Ornelas PA-C [facility] DIAGNOSTIC IMAGING ORDERABLES documented in this encounter Visit Diagnoses Diagnosis Lumbar back pain- Primary Lumbago documented in this encounter Historical Medications * This list may reflect changes made after this encounter. Medication Sig Dispensed Refills Start Date End Date famotidine (PEPCID) 20 mg tablet 10/20/2022 lamoTRIgine (LAMICTAL) 25 mg tablet 2 times daily. 02/09/2023 07/11/2023 added in this encounter Care Teams Racing Car Driver Relationship Specialty Start Date End Date Angelic Silva APRN [address] [place] [id number] PCP - General 03/06/23 documented as of this encounter
--- OUTSIDE RECORDS SUMMARY | 2024-01-26 12:51 | XMS_ITS | Encounter Summary ---
Author Organization [facility] Address [address] [place] [address] Care Team Providers Care Jigsawyer Name Role Phone Morgan Panchal Primary Care Provider [phone] Encounter Details Date Type Department Care Team (Late st Contact Info) Description 10/04/2021 Orders Only [facility] ENT- [address] [place] [address] [place] [address] Walter Elliott, RN [address] [place] [address] Encounter for preprocedure screening laboratory testing for COVID-19 (Primary Dx) Social History Tobacco Use Types [...] Contact Info) Description 01/31/2024 10:15 EDT Telemedicine [facility] Neurology - [address] [place] [address] [place], [place] [id number] Med Maldonado MD [address] [place] [address], [address] [place] [address] 08/31/2024 9:40 EST Appointment Naz Perez [address] [address] documented as of this encounter Results * COVID-19 TESTING (10/15/2021 9:41 EDT) COVID-19 rt-PCR Result Negative Negative 10/16/2021 10:47 EDT [facility] Comment: This test has not been FDA cleared or approved. This test has been authorized by FDA under an EUA for use by authorized laboratories. This test has been authorized only for detection of nucleic acid from 2019-nCoV, not for any other viruses or pathogens. [...] was performed using the susan SARS-CoV-2 assay ([employer] on the Susan 6800 System Performing Lab Susan [address] [facility] 10/16/2021 10:47 EDT [facility] Swab BOTH ANTERIOR NARES / Unknown Swab / Unknown 10/15/2021 9:41 EDT 10/15/2021 9:41 EDT Rachel Hernandez MD MICROBIOLOGY - GENER AL ORDERABLES [facility] [address] [place] [address] documented in this encounter Visit Diagnoses Diagnosis Encounter for preprocedure screening laboratory testing for COVID-19- Primary documented in this encounter Care Teams Jigsawyer Relationship Specialty Start Date End Date Morgan Panchal PA PCP - General 03/27/20 03/05/23 documented as of this encounter
--- OUTSIDE RECORDS SUMMARY | 2024-01-26 12:51 | XMS_ITS | Encounter Summary ---
Author Organization [facility] Address [address] [place] [address] Care Team Providers Care Air Cargo Ground Operations Supervisor Name Role Phone Angelic Silva APRN Primary Care Provider [phone] Reason for Visit * Reason Onset Date Comments Other 10/06/2023 Encounter Details Date Type Department Care Team (Late st Contact Info) Description 10/06/2023 Telephone [facility] Gastroenterology - [address] [address] Andree Wheatley PA-C [address] [place] [address], [address] [place] [address] Other Social History Tobacco Use Types Packs/Day Years [...] encounter Miscellaneous Notes * Telephone Encounter - Jennifer Douglas - 10/06/2023 0923 EDT Call to schedule EGD IV in November-December per Kyle, and follow up afterwrds 10/26 called [email or web address] to schedule, will also send a letter. documented in this encounter Plan of Treatment Upcoming Encounters Date Type Department Care Team (Late st Contact Info) Description 01/31/2024 10:15 EDT Telemedicine [facility] Neurology - [address] [id number] Med Maldonado MD [address] [place] [address] [address] [place] [address] 08/31/2024 9:40 EST Appointment Naz Perez [address] [address] documented as of this encounter Visit Diagnoses Not on filedocumented in this encounter Care Teams Air Cargo Ground Operations Supervisor Relationship Specialty Start Date End Date Angelic Silva APRN [address] [place] [address] PCP - General 03/06/23 documented as of this encounter
--- OUTSIDE RECORDS SUMMARY | 2024-01-26 12:51 | XMS_ITS | Referral Summary ---
Author Organization [facility] Address [address] [place] [address] Care Team Providers Care Laboratory Helper Name Role Phone Angelic Silva APRN Primary Care Provider [phone] Encounters Date Type Department Care Team Description 11/08/2023 Telephone [facility] Neurology - [address] [address] [place] [address] Med Maldonado MD Appointment Related from Last 3 Months Allergies Active Allergy Reactions Criticality Noted Date Comments Other - See Comments 05/31/2011 Environmental Allergies Medications Medication Sig Dispensed Refills Start Date End Date Status ibuprofen (MOTRIN) 400 mg tablet Take 1 Tab by mouth every 4 hours as needed for Pain. 01/09/2014 Active Additional Information Patient not taking.Reported on 05/10/2023 Multivitamins with Minerals tablet tablet Take 1 Tablet by mouth daily. Active INTRAUTERINE DEVICE, IUD, INTRAUTERINE by intrauterine route. Active modafiniL (PROVIGIL) 200 mg tablet Take 1 Tablet by mouth 2 times daily. Active UNABLE TO FIND Med Name: Karenryandennis Kunal from natasha Donahue[employer]daixi, Synetiq [facility] probiotic Active famotidine (PEPCID) 20 mg tablet 10/20/2022 Active magnesium oxide (MAG-OX) 400 mg (241.3 mg magnesium) tablet Take 1 Tablet by mouth daily. Active lisinopriL (PRINIVIL) 10 mg tablet Take 1 Tablet by mouth daily. 06/19/2023 Active mupirocin (BACTROBAN) 2 % ointment APPLY TOPICALLY EVERY 8 HOURS DIRECTED 03/10/2023 Active B COMPLEX-VITAMIN B12 tablet Take 1 Tablet by mouth at bedtime. 12/01/2022 Active NAC 600 mg capsule Take 2 Capsules by mouth 2 times daily. 02/17/2023 Active escitalopram oxalate (LEXAPRO) 20 mg tablet Take 1 Tablet by mouth daily. Active lamoTRIgine (LAMICTAL) 25 mg tablet Take 1 Tablet by mouth 2 times daily. 06/09/2023 Active omeprazole (PRILOSEC) 40 mg capsule Take 1 Capsule by mouth daily. 02/25/2023 Active ondansetron (ZOFRAN-ODT) 4 mg disintegrating tablet 11/10/2022 Active levonorgestreL (MIRENA) 21 mcg/24 hours (8 yrs) 52 mg IUD by intrauterine route. Active meclizine (ANTIVERT) 25 mg tablet Take 1 Tablet by mouth 3 times daily as needed for Dizziness. 15 Tablet 07/11/2023 Active UNABLE TO FIND Take 500 mg by mouth daily. Med Name: Tumeric Active rizatriptan (MAXALT) 10 mg tablet Take 1 tab at onset of headache, may repeat once in 2 hours if needed. Max of 2 tabs in 24 hours and 8 treatments per month. 12 Tablet 2 10/17/2023 Active amLODIPine (NORVASC) 2.5 mg tablet Start with 1 tab (2.5mg) nightly and every 2 weeks increase by 1 tab as tolerated. Do not exceed 4 tabs (10mg) nightly. 90 Tablet 4 10/18/2023 Active Active Problems Patient Care Coordination No te Formatting of this note migh t be different from the original. 2020 TC# [id number] [place] Karine Martinez 01/04/21 15:34 Problem Noted Date Diagnosed Date Fat pad atrophy of foot 07/28/2020 Pain of right heel 07/21/2020 Borderline personality disorder ([facility]) 2019 Obstructive sleep apnea syndrome 08/06/2019 Overview: Diagnosed in 2019 in [place] [facility]. On CPAP but not using currently. Patellar instability of both knees 08/06/2019 Overview: S/P surgery on right patella without benefit. Frequent dislocation Adjustment disorder with mixed anxiety and depre ssed mood 08/01/2019 Small fiber neuropathy 09/27/2012 Resolved Problems Problem Noted Date Diagnosed Date Resolved Date Normal labor and delivery 01/09/2014 Encounter for supervision of normal in multigravida 01/02/2014 08/06/2019 Overview: IMO Update Auto Replacement Immunizations Name Administration Dates Next Due Covid-19 mRNA Vaccine (PFIZE R COVID-19) PF 0.3 ml IM (12 yrs+) 05/24/2021,10/16/2020,09/25/2020 DTaP Vaccine (INFANRIX) <7YO IM 11/18/18 87,04/05/1983,05/04/1982,02/22,1981 Hepatitis B 06/06/1995,06/16/1994,03/22/1994 Hib 01/20/1986 MMR Vaccine SQ 02/08/1993,02/08/1983 Meningococcal Conjugate (MCV 4) Vaccine (MENACTRA) 4-Valent IM 02/07/2001 PPD Skin Test Placement 12/20/2000 Poliovirus Vaccine IPV IM OR SQ 11/18/18 89,04/05/1983,02/22/1982,12/25 Tdap Vaccine =>7YO IM 03/15/1996 Social History Tobacco Use Types Packs/Day Years [...] 22:01 EDT Sexual Orientation Not on file Last Filed Vital Signs Vital Sign Reading Time Taken Comments Blood Pressure 130/82 10/17/2023 1400 EDT Pulse 97 10/17/2023 1400 EDT Temperature 36.5 ??C (97.7 ??F) 07/11/2023 0940 EST Respiratory Rate 12 10/17/2023 1400 EDT Oxygen Saturation 97% 10/17/2023 1400 EDT Inhaled Oxygen Concentration - - Weight 94.3 kg (208 lb) 10/17/2023 1400 EDT self -reported Height 172.7 cm (5' 7.99) 07/19/2023 1351 EST Body Mass Index 31.63 07/19/2023 1351 EST Functional Status Functional Status Response Date of [...] concentrating, remembering, or making decisions? No 11/06/2019 Plan of Treatment Upcoming Encounters Date Type Department Care Team (Late st Contact Info) Description 01/31/2024 10:15 EDT Telemedicine [facility] Neurology - [address] [id number] Med Maldonado MD [address] [place] [address] [address] 2 [place] [phone] 08/31/2024 9:40 EST Appointment Naz Perez [address] [id number] Medical Devices Implanted Type Area Hospital Cook Device Identifier Shelf Expiration Date Model / Serial / Lot Mr Hwang Mirena Iud Description:MR HWANG MIRENA IUD Right Knee,Screws,Mr Eugenio Per Dept Policy,[facility] 03/19/20 Procedures Procedure Name Priority Date/Time Associated Diagnosis Comments HEPATITIS C AB W REFLEX TO HCV RNA BY PCR Routine 02/01/2013 15:38 EDT Idiopathic small fiber sensory neuropathy from Last 3 Months or Most Recently Relevant to Health Maintenance Results * HEPATITIS C ANTIBODY (02/01/2013 15:38 EDT) Hepatitis C Ab Negative [facility] Comment:Reference Range: Neg ative Blood specimen (specimen) 02/01/2013 15:38 EDT 02/01/2013 15:52 EDT Elliott Ledezma MD CHEMISTRY & BLOOD GAS ORDERABLES [facility] [address] [place] [address] from Last 3 Months or Most Recently Relevant to Health Maintenance Advance Directives For more information, please contact: [phone] * Full Code (Latest Code Status on File) Date Activated Date Inactivated Comments 01/07/2014 11:46 01/07/2014 21:48 * Full Code Date Activated Date Inactivated Comments 01/02/2014 18:05 01/02/2014 21:49 * Full Code Date Activated Date Inactivated Comments 03/03/2010 8:50 03/05/2010 16:13 * Full Code Date Activated Date Inactivated Comments 03/02/2010 17:24 03/03/2010 8:50 * Full Code Date Activated Date Inactivated Comments 03/02/2010 7:37 03/02/2010 17:24 Care Teams Laboratory Helper Relationship Specialty Start Date End Date Angelic Silva APRN [address] [place] [address] PCP - General 03/06/23
--- OUTSIDE RECORDS SUMMARY | 2024-01-26 12:51 | XMS_ITS | Encounter Summary ---
Author Organization [facility] Address [address] [place] [address] Care Team Providers Care Repeater Chief Name Role Phone Angelic Silva APRN Primary Care Provider [phone] Reason for Referral * Radiology Services (Routine/Next Available) - Authorization Not Required Specialty Diagnoses / Procedures Referred By Contac t Referred To Contact Diagnoses Other specified abnormal findings of blood chemistry Procedures US ABDOMEN LIMITED Angelic Silva APRN [address] [address] [facility] Referral ID Status Reason Start Date Expiration Date Visits Requested Visits Authorized [id number] Authorization Not Required 02/17/2023 1 1 Reason for Visit * Radiology Services (Routine/Next Available) - Authorization Not Required Specialty Diagnoses / Procedures Referred By Contac mary Referred To Contact Diagnoses Other specified abnormal findings of blood chemistry Procedures US ABDOMEN LIMITED Angelic Silva APRN 26 [facility] [address] [place] [address] [facility] Referral ID Status Reason Start Date Expiration Date Visits Requested Visits Authorized [id number] Authorization Not Required 02/17/2023 1 1 Encounter Details Date Type Department Care Team (Latest Contact Info) Description 03/08/2023 9:50 EDT - 03/08/2023 23:59 EDT Hospital Encounter Naz Perez Ultrasound [address] [place] [address] Other specified abnormal findings of blood chemistry Discharge Disposition: Home or Self Care Social [...] No 11/06/2019 documented as of this encounter Medications at Time of Discharge [...] tablet 11/10/2022 UNABLE TO FIND Med Name: Terrazyme Digest from marie [employer] black elderberry, [facility] probiotic budesonide (PULMICORT) 0.5 mg/2 [...] Discharge Disposition Disposition Code Departure Means Destination Home or Self Care documented in this encounter Plan of Treatment Upcoming Encounters Date Type Department Care Team (Late st Contact Info) Description 01/31/2024 10:15 EDT Telemedicine [facility] Neurology - [address] [phone] Med Maldonado MD [address] [place] [address], Level 2 [place] [phone] 08/31/2024 9:40 EST Appointment Naz Perez [address] [phone] documented as of this encounter Procedures Procedure Name Priority Date/Time Associated Diagnosis Comments US ABDOMEN LIMITED Routine 03/08/2023 10 :14 EDT Other specified abnormal findings of blood chemistry documented in this encounter Results * US ABDOMEN LIMITED (03/08/2023 10:14 EDT) Anatomical Region Laterality Modality Abdomen, Body Ultrasound 03/08/2023 11:1 0 EDT Impressions 03/08/2023 11:10 EDT Hepatomegaly and hepatic steatosis and/or fibrosis. No focal hepatic lesions. I have personally reviewed the images and the above interpretation and agree with the findings. [id number] Narrative 03/08/2023 11:10 EDT US ABDOMEN LIMITED ??03/08/2023 10:00 AM SIGNS AND SYMPTOMS/COMMENTS: Elevated LFT's;R79.89:Other specified abnormal findings of blood chemistry COMPARISON: None TECHNIQUE: Grayscale and Doppler ultrasound evaluation of the right upper quadrant of the abdomen was performed. FINDINGS: PANCREAS: The visualized portion of the pancreas is normal. LIVER: The liver measures 22.6 cm in length, which is enlarged. Diffusely increased echogenicity of the liver parenchyma relative the right renal cortex, with focal sparing along the gallbladder fossa.. The contour of the liver is smooth. No focal hepatic lesions. GALLBLADDER: The gallbladder wall measures 2 mm in thickness, which is normal. No biliary sludge, shadowing calculi, or pericholecystic fluid. BILE DUCTS: The common duct measures 3 mm in diameter at the armin hepatis, which is normal. No intrahepatic biliary duct dilatation. RIGHT KIDNEY: The right kidney measures 11.5 cm in length. No shadowing calculi or hydronephrosis. PROXIMAL ABDOMINAL AORTA / IVC: Normal Procedure Note Ramsey Castle MD - 03/08/2023 US ABDOMEN LIMITED 03/08/2023 10:00 AM SIGNS AND SYMPTOMS/COMMENTS: Elevated LFT's;R79.89:Other specifiedabnormal findings of blood chemistry COMPARISON: None TECHNIQUE: Grayscale and Doppler ultrasound evaluation of the right upperquadrant of the abdomen was performed. FINDINGS: PANCREAS: The visualized portion of the pancreas is normal. LIVER: The liver measures 22.6 cm in length, which is enlarged. Diffuselyincreased echogenicity of the liver parenchyma relative the right renalcortex, with focal sparing along the gallbladder fossa.. The contour ofthe liver is smooth. No focal hepatic lesions. GALLBLADDER: The gallbladder wall measures 2 mm in thickness, which isnormal. No biliary sludge, shadowing calculi, or pericholecystic fluid. BILE DUCTS: The common duct measures 3 mm in diameter at the portahepatis, which is normal. No intrahepatic biliary duct dilatation. RIGHT KIDNEY: The right kidney measures 11.5 cm in length. No shadowingcalculi or hydronephrosis. PROXIMAL ABDOMINAL AORTA / IVC: Normal IMPRESSION Hepatomegaly and hepatic steatosis and/or fibrosis. No focal hepaticlesions. I have personally reviewed the images and the above interpretation andagree with the findings. [id number] Angelic Silva APRN [facility] US ORDERABLES documented in this encounter Visit Diagnoses Diagnosis Other specified abnormal findings of blood chemistry documented in this encounter Care Teams Repeater Chief Relationship Specialty Start Date End Date Angelic Silva APRN [address] [place] [address] PCP - General 03/06/23 documented as of this encounter
--- OUTSIDE RECORDS SUMMARY | 2024-01-26 12:51 | XMS_ITS | Encounter Summary ---
Author Organization [facility] Address [address] [place] [address] Care Team Providers Care Lap Cutter Name Role Phone Morgan Panchal Primary Care Provider [phone] Encounter Details Date Type Department Care Team (Latest Contact Info) Description 09/10/2021 Transcribe Orders OUTSIDE PROVIDER Angelic Silva, WILDLIFE OFFICER [address],[facility] [address] [place] [phone] Stress incontinence (female) (male) (Primary Dx); Pedal edema; Obesity, unspecified classification, unspecified obesity type, unspecified whether serious comorbidity present; Dyspepsia; Other fatigue; Bilateral headaches; Sinus congestion; Family history of diabetes mellitus Social History Tobacco Use Types Packs/Day Years [...] Yes 11/06/2019 Cognitive Status Response Date of Assess ent Because of a physical, menta l, or emotional condition, does this person have serious difficulty concentrating, remembering, or making decisions? No 11/06/2019 documented as of this encounter Plan of Treatment Upcoming Encounters Date Type Department Care Team (Late st Contact Info) Description 01/31/2024 10:15 EDT Telemedicine [facility] Neurology - [address] [place] [address] [place], [place] [phone] Med Maldonado MD [address] [place] [address], [address] [place] [address] 08/31/2024 9:40 EST Appointment Naz Perez [address] [address] Scheduled Orders Name Type Priority Associated Diagnoses Orde r Schedule MAGNESIUM Lab Routine Stress incontinence (female) (male) Pedal edema Obesity, unspecified classification, unspecified obesity type, unspecified whether serious comorbidity present Dyspepsia Other fatigue Bilateral headaches Sinus congestion Family history of diabetes mellitus Expected: 09/10/2021 (Approximate), Expires: 12/11/2021 VITAMIN B12 Lab Routine Stress incontinence (female) (male) Pedal edema Obesity, unspecified classification, unspecified obesity type, unspecified whether serious comorbidity present Dyspepsia Other fatigue Bilateral headaches Sinus congestion Family history of diabetes mellitus Expected: 09/10/2021 (Approximate), Expires: 12/11/2021 TSH Lab Routine Stress incontinence (female) (male) Pedal edema Obesity, unspecified classification, unspecified obesity type, unspecified whether serious comorbidity present Dyspepsia Other fatigue Bilateral headaches Sinus congestion Family history of diabetes mellitus Expected: 09/10/2021 (Approximate), Expires: 12/11/2021 HEMOGLOBIN A1C Lab Routine Stress incontinence (female) (male) Pedal edema Obesity, unspecified classification, unspecified obesity type, unspecified whether serious comorbidity present Dyspepsia Other fatigue Bilateral headaches Sinus congestion Family history of diabetes mellitus Expected: 09/10/2021 (Approximate), Expires: 12/11/2021 BASIC METABOLIC PANEL (BMP) Lab Routine Stress incontinence (female) (male) Pedal edema Obesity, unspecified classification, unspecified obesity type, unspecified whether serious comorbidity present Dyspepsia Other fatigue Bilateral headaches Sinus congestion Family history of diabetes mellitus Expected: 09/10/2021 (Approximate), Expires: 12/11/2021 LIPID PROFILE (INCLUDES CHOLESTEROL, TRIGLYCERIDES, HDL, LDL) Lab Routine Stress incontinence (female) (male) Pedal edema Obesity, unspecified classification, unspecified obesity type, unspecified whether serious comorbidity present Dyspepsia Other fatigue Bilateral headaches Sinus congestion Family history of diabetes mellitus Expected: 09/10/2021 (Approximate), Expires: 12/11/2021 documented as of this encounter Visit Diagnoses Diagnosis Stress incontinence (female) (male)- Primary Pedal edema Edema Obesity, unspecified classification, unspecified obesity type, unspecified whether serious comorbidity present Dyspepsia Dyspepsia and other specified disorders of function of stomach Other fatigue Bilateral headaches Headache Sinus congestion Other diseases of nasal cavity and sinuses Family history of diabetes mellitus documented in this encounter Care Teams Lap Cutter Relationship Specialty Start Date End Date Morgan Panchal PA PCP - General 03/27/20 03/05/23 documented as of this encounter
--- OUTSIDE RECORDS SUMMARY | 2024-01-26 12:51 | XMS_ITS | Clinical Summary ---
Author Organization [facility] Address [address] [place] [address] Care Team Providers Care Rug Dry Room Attendant Name Role Phone Angelic Silva APRN Primary Care Provider [phone] Allergies Active Allergy Reactions Criticality Noted Date [...] daily. Active UNABLE TO FIND Med Name: Madeline Syed from marie [employer]ah[employer], [employer] women's [facility] probiotic Active famotidine (PEPCID) 20 mg [...] t be different from the original. 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 On CPAP but [...] 01/02/2014 08/06/2019 Overview: IMO Update Auto Replacement Encounters Date Type Department Care Team Description 11/08/2023 Telephone [facility] Neurology - S [address] [address] Med Maldonado MD Appointment Related from Last 3 Months Immunizations Name Administration Dates Next Due Covid-19 mRNA Vaccine (PFIZE R COVID-19) PF 0.3 ml IM (12 yrs+) 05/24/2021,10/16/2020,09/25/2020 DTaP Vaccine (INFANRIX) <7YO IM 11/18/18 87,04/05/1983,05/04/1982,02/22,1981 Hepatitis B 06/06/1995,06/16/1994,03/22/1994 Hib 01/20/1986 MMR Vaccine SQ 02/08/1993,02/08/1983 Meningococcal Conjugate (MCV 4) Vaccine (MENACTRA) 4-Valent IM 02/07/2001 PPD Skin Test Placement 12/20/2000 Poliovirus Vaccine IPV IM OR SQ 11/18/18 89,04/05/1983,02/22/1982,12/25 Tdap Vaccine =>7YO IM 03/15/1996 Surgical History Surgery Date Site/Laterality Comments WISDOM TOOTH EXTRACTION 07/10/1997 - 07/09/1998 COLPOSCOPY iud PATELLA SURGERY 07/10/2012 - 07/09/2013 Right to prevent dislocation? Medical History Medical History Date Comments Pap smear, abnormal ASCUS and HP V Patellar instability Bilateral School problem Chickenpox Wears glasses Numbness and tingling of foot Gestational hypertension Environmental allergies Heartburn Sleep apnea Narcolepsy Family History Medical History Relation Comments High Cholesterol Father Cancer Maternal Grandfather prostate Diabetes Maternal Grandfather High Blood Pressure Maternal Grandfather High Cholesterol Maternal Grandfather Arthritis-Osteo Mother High Blood Pressure Mother High Cholesterol Mother Arthritis-Osteo Sister has had surgerie s on the knees. Migraines Sister Breast Cancer Neg Hx Relation Status Comments Father Alive Maternal Grandfather Alive Mother Alive Paternal Grandfather Paternal Grandmother Alive Sister Social History Tobacco Use Types Packs/Day Years [...] 22:01 EDT Sexual Orientation Not on file Obstetrics History Para Term AB IAB SAB Ectopic Multiple Livin g Live Births 2 2 2 0 0 0 0 0 0 2 2 Date Outcome GA Total Labor Labor/2nd/3rd Weight Sex Type Anes PTL Deana A1 A5 Name Clin 010 Term 41w 3d 3782 g (8 lb 5.4 oz) F Vag-S pont None N Livin g 8 9 LAPOI NTE,N BEMIL Y Nesha Thibau lt Delivery Location:[facility] Comments:none 014 Term 38w 1d 3567 g (7 lb 13.8 oz) F Vag-S pont None N Livin g 8 9 CLOUA ADRIENNE,N BEMIL Y Thibau lt, Nesha Complications:None Delivery Location:[facility] Last Filed Vital Signs Vital Sign Reading [...] Body Mass Index 31.63 07/19/2023 1351 EST Plan of Treatment Upcoming Encounters Date Type Department Care Team (Late st Contact Info) Description 01/31/2024 10:15 EDT Telemedicine [facility] Neurology - S [address] [address] Med Maldonado MD 1 [facility], Level [address] [place] [address] 08/31/2024 9:40 EST Appointment Naz [address] [id number] [place] [address] Health Maintenance Due Date Last Done Comments COVID-19 Vaccine (2022-2 4 season) 2023 05/24/2021, 10/16/2020, 09/25/2020 Hepatitis B Vaccine Completed 06/06/1995, 06/16/1994, 03/22/1994 Hepatitis C Screen Completed 02/01/2013, 09/11/2005 Medical Devices Implanted Type Area Bobbin Handler Device Identifier Shelf Expiration Date Model / Serial / Lot Mr Becker Mirena Iud Description: SAFE MIRENA IUD Right Knee,Screws,Mr Safe Per Dept Policy,[facility] 03/19/20 Procedures Procedure Name Priority Date/Time Associated Diagnosis Comments HEPATITIS C AB W REFLEX TO HCV RNA BY PCR Routine 02/01/2013 15:38 EDT Idiopathic small fiber sensory neuropathy from Last 3 Months or Most Recently Relevant to Health Maintenance Results * HEPATITIS C ANTIBODY (02/01/2013 15:38 EDT) Hepatitis C Ab Negative [facility] Comment:Reference Range: Neg ative Blood specimen (specimen) 02/01/2013 15:38 EDT 02/01/2013 15:52 EDT Elliott Ledezma MD CHEMISTRY & BLOOD GAS ORDERABLES [facility] [address] [place] [address] from Last 3 Months or Most Recently Relevant to Health Maintenance Advance Directives For more information, please contact: [phone] * Full Code (Latest Code Status on [...] Comments 03/02/2010 7:37 03/02/2010 17:24 Care Teams Rug Dry Room Attendant Relationship Specialty Start Date End Date Angelic Silva APRN [address] [place] [phone] PCP - General 03/06/23
--- OUTSIDE RECORDS SUMMARY | 2024-01-26 12:51 | XMS_ITS | Encounter Summary ---
Author Organization [facility] Address [address] [place] [address] Care Team Providers Care Cementer Hand Name Role Phone Morgan Panchal Primary Care Provider [phone] Reason for Visit * Reason Onset Date Comments COVID-19 10/05/2021 Encounter Details Date Type Department Care Team (Late st Contact Info) Description 10/05/2021 Telephone [facility] [place] [address] [place] [address] Rachel Hernandez MD [address] [facility], Level [address] [place] [phone] COVID-19 Social History Tobacco Use Types Packs/Day [...] encounter Miscellaneous Notes * Telephone Encounter - Liza Cardoza - 10/08/2021 1652 EDT MyChart message to patient regarding scheduling. * Telephone Encounter - Zahida Storm - 10/05/2021 1028 EDT Called patient to schedule COVID-19 testing. Requested a call back [phone]. This is our 1ST attempt at contacting the patient. documented in this encounter Plan of Treatment Upcoming Encounters Date Type Department Care Team (Late st Contact Info) Description 01/31/2024 10:15 EDT Telemedicine [facility] Neurology - S [address] [phone] Med Maldonado MD [address] [place] [address], Level [address] [place] [phone] 08/31/2024 9:40 EST Appointment Naz Perez [address] [phone] documented as of this encounter Visit Diagnoses Not on filedocumented in this encounter Care Teams Cementer Hand Relationship Specialty Start Date End Date Morgan Panchal PA PCP - General 03/27/20 03/05/23 documented as of this encounter
--- OUTSIDE RECORDS SUMMARY | 2024-01-26 12:51 | XMS_ITS | Encounter Summary ---
Author Organization [facility] Address [address] [place] [address] Care Team Providers Care Bandage Winding Machine Operator Name Role Phone Morgan Panchal Primary Care Provider [phone] Reason for Visit * Reason Comments Other nasal congestion * Referral (Routine) - Receiving Office to Obtain Authorization Specialty Diagnoses / Procedures Referred By Tito hernandez Referred To Contact Otolaryngology Diagnoses Other specified disorders of nose and nasal sinuses Angelic Silva, RISK LEAD 26 [facility] [address] [place] [address] [place] [address] [place] [address] Referral ID Status Reason Start Date Expiration Date Visits Requested Visits Authorized [id number] Receiving Office to Obtain Authorization 1 1 Encounter Details Date Type Department Care Team (Late st Contact Info) Description 10/18/2021 16:00 EDT Office Visit [facility] ENT- Main [place] [address] [place] [address] Rachel Hernandez MD [address] [facility], [address] 4 [place] [phone] Non-seasonal allergic rhinitis, unspecified trigger (Primary Dx) Social History Tobacco Use Types [...] No 11/06/2019 documented as of this encounter Ordered Prescriptions Prescription Sig Dispensed Refills Start Date End Da te azelastine (ASTELIN) nasal spray Instill 1-2 Sprays into both nostrils 2 times daily for 30 days. 30 mL 11 10/18/2021 11/17/2021 budesonide (PULMICORT) 0.5 mg/2 mL nebulizer suspension 2mL in sinus rinse kit once daily 180 mL 3 10/18/2021 10/17/2023 documented in this encounter Progress Notes * Rachel Hernandez MD - 10/18/2021 1600 EDT Consultation Note Division of Otolaryngology, Head and Neck Surgery Date of Service: 10/18/21 Provider: MD Angelic Wiggins has requested that I see Yolette Tellez in consultation regarding nasal obstruction Chief Complaint: Chief Complaint Patient presents with ??? Other nasal congestion History of Present Illness: Yolette Tellez is a 40 y.o. female who comes in today for nasal obstruction She presents today with difficulty breathing through her nose She feels as if the inside of her nose has been closing in over the last few years This is progressively worsening over time She has tried allergy medication in the past without improvement She has used ocean spray daily which does not help She has tried saline rinses daily which helps somewhat She has tried flonase which has not helped She has tried oral antihistamines which do not help She has not seen an lockstitch sleeve maker She reports that the right side is her worse side Her left side tends to bleed She has to breathe through her mouth to breathe at rest She uses a full face CPAP which works well for JERMAN severe Nasal obstruction mild Nasal drainage mild Loss of smell mild PND mild Itchy Nose/eyes mild Sneezing mild Cough mild Ear fullness mild Facial pain/pressure Current nasal treatment includes none Past Medical History: Patient Active Problem List Diagnosis ??? Small fiber neuropathy ??? Adjustment disorder with mixed anxiety and depressed mood ??? Obstructive sleep apnea syndrome ??? Patellar instability of both knees ??? Borderline personality disorder (HCC-CMS) ([facility]) ??? Pain of right heel ??? Fat pad atrophy of foot Past Medical History: Diagnosis Date ??? Chickenpox ??? Environmental allergies ??? Gestational hypertension ??? Heartburn ??? Narcolepsy ??? Numbness and tingling of foot ??? Pap smear, abnormal ASCUS and HPV ??? Patellar instability Bilateral ??? School problem ??? Sleep apnea ??? Wears glasses Past Surgical History: Procedure Laterality Date ??? COLPOSCOPY iud ??? PATELLA SURGERY Right 2012 to prevent dislocation? WISDOM TOOTH EXTRACTION 1997 Current Outpatient Medications Medication ??? escitalopram oxalate (LEXAPRO) 10 mg tablet ??? ibuprofen (MOTRIN) 400 mg tablet ??? INTRAUTERINE DEVICE, IUD, INTRAUTERINE ??? meclizine (ANTIVERT) 25 mg tablet ??? modafiniL (PROVIGIL) 200 mg tablet ??? montelukast (SINGULAIR) 10 mg tablet ??? Multivitamins with Minerals tablet tablet ??? omeprazole (PRILOSEC) 20 mg capsule ??? SUMAtriptan (IMITREX) 50 mg tablet ??? UNABLE TO FIND No current facility-administered medications for this visit. Allergies: Allergies Allergen Reactions ??? Other - See Comments Environmental Allergies Past Family and Social History: Family History Problem Relation Age of Onset ??? High Blood Pressure Mother ??? High Cholesterol Mother ??? Arthritis-Osteo Mother ??? High Cholesterol Father ??? High Blood Pressure Maternal Grandfather ??? Diabetes Maternal Grandfather ??? High Cholesterol Maternal Grandfather ??? Cancer Maternal Grandfather prostate ??? Arthritis-Osteo Sister has had surgeries on the knees. Social History Socioeconomic History ??? Marital status: Legally Spouse name: Not on file ??? Number of children: Not on file ??? Years of education: Not on file ??? Highest education level: Not on file Occupational History ??? Not on file Tobacco Use ??? Smoking status: Never Smoker ??? Smokeless tobacco: Never Used Substance and Sexual Activity ??? Alcohol use: Yes Comment: rare- once a year ??? Drug use: No ??? Sexual activity: Not on file Other Topics Concern ??? Not on file Social History Narrative ??? Not on file Social Determinants of Health Financial Resource Strain: Not on file Food Insecurity: Not on file Transportation Needs: Not on file Physical Activity: Not on file Stress: Not on file Social Connections: Not on file Review of Systems: A 12 point review of systems was performed, and was negative except for none. Physical Exam: Vital Signs: Reviewed (3) There were no vitals taken for this visit. Appearance: The patient appears alert, cooperative, and comfortable. Communication/Voice: Normal Head and Face: Inspection: Normal without apparent scars, lesions, or masses. Palpation: Not performed. Salivary Glands: Submandibular and Parotid glands are normal bilaterally Facial Strength: Intact and symmetrical bilaterally External Ear & Nose: No external ear or nose deformity noted Ears, Nose, Mouth and Throat: Otoscopy: Right external auditory canal: not examined Left external auditory canal: not examined Right tympanic membrane: not examined Left tympanic membrane: not examined Tuning Fork: Not assessed Nose: caudal septal deviation to the left (mild to moderate) off of the maxillary crest. inferior turbiantes moderately boggy and hypertrophied Lips, Teeth & Gums: normal for age Oral Cavity & Oropharynx: normal Neck: General: Not examined Thyroid: Not examined Cervical Lymph Nodes: Not Examined Procedure: Endoscopy Pre-procedure Dx: nasal obstruction Post-procedure Dx: same Indication: evaluation of symptoms of rhinitis/sinusitis unable to visualize on anterior rhinoscopy Anesthesia: Cophenylcaine Endoscopy type: Rigid Procedure: Informed consent was obtained. The patient was seated upright, and topical anesthetic was applied. After waiting for the anesthetic/vasoconstrictor effect, the scope was passed into both nostrils and the nasal cavities and nasopharynx were examined. The patient tolerated the procedure well, and left the office in stable condition. Complications: None Findings: Nose: caudal septal deviation to the left, inferior turbinates boggy and inflamed, Rgiht IT hypertrophy, left in contact with the septal spur, middle turbinate head edema on the right, middle meatus clear bilaterally and SE recess clear bilaterally Nasopharynx: Normal examination of the choanae, eustachian tube orifices, and posterior nasopharyngeal wall Investigations: 10/18/21 SNOT-22: 59 06/04/16 MRI Head: No evidence of sinusitis Assessment: 1. Nasal obstruction, multifactorial in nature. We discussed that while there are structural considerations in her nasal obstruction, I would recommend first initiating anti-inflammatory measures in her nose. She likely has contributions from a narrow left INV, bilateral (R>L) inferior turbinatehypertrophy, and septal deviation which are all contributing somewhat. She had adequate nasal breathing 5 years ago which makes me hopeful that anti-inflammatory treatment can reverse the gradual obstruction she has felt over time. She has risk factors for poor outcomes from surgery including neuropathy and ehrs-danlos syndrome. Her one prior surgery has lead to chronic pain and we discussed my concern that this could also be true from a nasal surgery. We will initiate budesonide rinses daily and astelin spray BID. She wishes to proceed with allergy evaluation and I have requested this evaluation. Plan: - as above - Follow up in 3 months Rachel Hernandez MD 10/18/21 documented in this encounter Plan of Treatment Upcoming Encounters Date Type Department Care Team (Late st Contact Info) Description 01/31/2024 10:15 EDT Telemedicine [facility] Neurology - [address] [address] Med Maldonado MD [address] [place] [address], [address] 2 [place] [phone] 08/31/2024 9:40 EST Appointment [facility] [address] [place] [address] documented as of this encounter Visit Diagnoses Diagnosis Non-seasonal allergic rhinitis, unspecified trigger- Primary documented in this encounter Discontinued Medications Medication Sig Discontinue Reason Start Date End Da te acetaminophen (TYLENOL) 325 mg tablet Take 2 Tabs by mouth as needed for Pain (). Therapy completed 01/02/2014 10/18/2021 buPROPion (WELLBUTRIN SR) 100 mg SR tablet Take 100 mg by mouth daily. Therapy completed 10/18/2021 cholecalciferol, Vitamin D3, 1,000 unit tablet Take 5,000 Units by mouth daily. Therapy completed 10/18/2021 glucosam/chond-msm1/C/ma ng/bor ([id number] COMPLEX ORAL) Take by mouth. Therapy completed 10/18/2021 herbal drugs (FIBER DIET ORAL) Take by mouth. Therapy completed 10/18/2021 loratadine (CLARITIN) 10 mg tablet Take 10 mg by mouth daily. Therapy completed 10/18/2021 documented as of this encounter Historical Medications * This list may reflect changes made after this encounter. Medication Sig Dispensed Refills Start Date End Date UNABLE TO FIND Med Name: Karenryandennis Syed from [employer], [employer] [facility] probiotic added in this encounter Care Teams Bandage Winding Machine Operator Relationship Specialty Start Date End Date Morgan Panchal PA PCP - General 03/27/20 03/05/23 documented as of this encounter
--- OUTSIDE RECORDS SUMMARY | 2024-01-26 12:51 | XMS_ITS | Encounter Summary ---
Author Organization [facility] Address [address] [place] [address] Care Team Providers Care Site Promotion Agent Name Role Phone Morgan Panchal Primary Care Provider [phone] Encounter Details Date Type Department Care Team (Latest Contact Info) Description 07/08/2021 Transcribe Orders OUTSIDE PROVIDER Angelic Silva, ONLINE ACTIVIST [address] [place],[facility] [address] [place] [phone] Stress incontinence (Primary Dx); Pedal edema; Obesity, unspecified classification, unspecified obesity type, unspecified whether serious comorbidity present; Non-ulcer dyspepsia; Bilateral headaches; Overdevelopment of nasal bones; Family history of diabetes mellitus; Increased nasal secretion; Other fatigue Social History Tobacco Use Types Packs/Day Years [...] Contact Info) Description 01/31/2024 10:15 EDT Telemedicine [facility] Neurology - [address] [place] [address] [place], [place] [address] Med Maldonado MD [address] [place] [address], [address] [place] [address] 08/31/2024 9:40 EST Appointment Naz Perez [address] [address] Scheduled Orders Name Type Priority Associated Diagnoses Orde r Schedule MAGNESIUM Lab Routine Stress incontinence Pedal edema Obesity, unspecified classification, unspecified obesity type, unspecified whether serious comorbidity present Non-ulcer dyspepsia Bilateral headaches Family history of diabetes mellitus Increased nasal secretion Other fatigue Expected: 07/08/2021 (Approximate), Expires: 10/06/2021 VITAMIN B12 Lab Routine Stress incontinence Pedal edema Obesity, unspecified classification, unspecified obesity type, unspecified whether serious comorbidity present Non-ulcer dyspepsia Bilateral headaches Family history of diabetes mellitus Increased nasal secretion Other fatigue Expected: 07/08/2021 (Approximate), Expires: 10/06/2021 HEMOGLOBIN A1C Lab Routine Stress incontinence Pedal edema Obesity, unspecified classification, unspecified obesity type, unspecified whether serious comorbidity present Non-ulcer dyspepsia Bilateral headaches Family history of diabetes mellitus Increased nasal secretion Other fatigue Expected: 07/08/2021 (Approximate), Expires: 10/06/2021 BASIC METABOLIC PANEL (BMP) Lab Routine Stress incontinence Pedal edema Obesity, unspecified classification, unspecified obesity type, unspecified whether serious comorbidity present Non-ulcer dyspepsia Bilateral headaches Family history of diabetes mellitus Increased nasal secretion Other fatigue Expected: 07/08/2021 (Approximate), Expires: 10/06/2021 LIPID PROFILE (INCLUDES CHOLESTEROL, TRIGLYCERIDES, HDL, LDL) Lab Routine Stress incontinence Pedal edema Obesity, unspecified classification, unspecified obesity type, unspecified whether serious comorbidity present Non-ulcer dyspepsia Bilateral headaches Family history of diabetes mellitus Increased nasal secretion Other fatigue Expected: 07/08/2021 (Approximate), Expires: 10/06/2021 THYROID CASCADE Lab Routine Stress incontinence Pedal edema Obesity, unspecified classification, unspecified obesity type, unspecified whether serious comorbidity present Non-ulcer dyspepsia Bilateral headaches Overdevelopment of nasal bones Family history of diabetes mellitus Increased nasal secretion Other fatigue Expected: 07/08/2021 (Approximate), Expires: 10/06/2021 documented as of this encounter Visit Diagnoses Diagnosis Stress incontinence- Primary Female stress incontinence Pedal edema Edema Obesity, unspecified classification, unspecified obesity type, unspecified whether serious comorbidity present Non-ulcer dyspepsia Dyspepsia and other specified disorders of function of stomach Bilateral headaches Headache Overdevelopment of nasal bones Acquired deformity of nose Family history of diabetes mellitus Increased nasal secretion Other diseases of nasal cavity and sinuses Other fatigue documented in this encounter Care Teams Site Promotion Agent Relationship Specialty Start Date End Date Morgan Panchal PA PCP - General 03/27/20 03/05/23 documented as of this encounter
--- OUTSIDE RECORDS SUMMARY | 2024-01-26 12:51 | XMS_ITS | Encounter Summary ---
Author Organization [facility] Address [address] [place] [address] Care Team Providers Care Supervisor Home Economics Name Role Phone Angelic Silva APRN Primary Care Provider [phone] Reason for Referral * Radiology Services (Routine/Next Available) - Authorization Not Required Specialty Diagnoses / Procedures Referred By Contac t Referred To Contact Diagnoses Encounter for screening mammogram for malignant neoplasm of breast Procedures MA BREAST SCREENING IVETTE BILATERAL Angelic Silva APRN [address] [address] [facility] Referral ID Status Reason Start Date Expiration Date Visits Requested Visits Authorized [id number] Authorization Not Required 02/17/2023 1 1 Reason for Visit * Radiology Services (Routine/Next Available) - Authorization Not Required Specialty Diagnoses / Procedures Referred By Contzen hernandez Referred To Contact Diagnoses Encounter for screening mammogram for malignant neoplasm of breast Procedures MA BREAST SCREENING IVETTE BILATERAL Angelic Silva APRN 26 [facility] [address] [place] [address] [facility] Referral ID Status Reason Start Date Expiration Date Visits Requested Visits Authorized [id number] Authorization Not Required 02/17/2023 1 1 Encounter Details Date Type Department Care Team (Latest Contact Info) Description 08/17/2023 11:00 EST - 08/17/2023 23:59 EST Hospital Encounter [facility] Breast Imaging - [address] [address] Encounter for screening mammogram for malignant neoplasm of breast Discharge Disposition: Home or Self Care Social [...] tablet 11/10/2022 UNABLE TO FIND Med Name: Karenryandennis Kunal from [facility],[place], [facility] probiotic B-complex with vitamin C (VITAMIN B [...] Contact Info) Description 01/31/2024 10:15 EDT Telemedicine [facility] Neurology - [address] [address] Med Maldonado MD [address] [place] [address], Level [address] [place] [phone] 08/31/2024 9:40 EST Appointment Naz Perez [facility] [address] [place] [address] documented as of this encounter Procedures Procedure Name Priority Date/Time Associated Diagnosis Comments MA BREAST SCREENING IVETTE BILATERAL Routine 08/17/2023 11:25 EST Encounter for screening mammogram for malignant neoplasm of breast documented in this encounter Results * MA BREAST SCREENING IVETTE BILATERAL (08/17/2023 11:25 EST) Anatomical Region Laterality Modality Breast Bilateral Mammography 08/17/2023 13:4 4 EST Impressions 08/17/2023 13:44 EST Negative, no evidence of malignancy. RECOMMENDATION: Routine screening mammography is recommended. OVERALL ASSESSMENT: BI-RADS 1: Negative These results will be communicated to your patient via a lay letter from Radiology. If any additional imaging is needed we will contact your patient directly. [id number] Narrative 08/17/2023 13:44 EST MA BREAST SCREENING IVETTE BILATERAL ??08/17/2023 11:10 AM History: Baseline;Z12.31:Encounter for screening mammogram for malignant neoplasm of breast Comparison: ??This is the patient's baseline exam . ? Technique: Routine 3D tomosynthesis with synthesized 2D views with CAD Breast Composition: The breast tissue is heterogeneously dense, which may obscure small masses. Bilateral Breast Findings: ??No significant masses, calcifications or other abnormalities are seen. Procedure Note Kelly Clay MD - 08/17/2023 MA BREAST SCREENING IVETTE BILATERAL 08/17/2023 11:10 AM History: Baseline;Z12.31:Encounter for screening mammogram for malignantneoplasm of breast Comparison: This is the patient's baseline exam . Technique: Routine 3D tomosynthesis with synthesized 2D views with CAD Breast Composition: The breast tissue is heterogeneously dense, which mayobscure small masses. Bilateral Breast Findings: No significant masses, calcifications or otherabnormalities are seen. IMPRESSION Negative, no evidence of malignancy. RECOMMENDATION: Routine screening mammography is recommended. OVERALL ASSESSMENT: BI-RADS 1: Negative These results will be communicated to your patient via a lay letter fromRadiology. If any additional imaging is needed we will contact yourpatient directly. [id number] Angelic Silva APRN IMG MAMMOGRAPHY O RDERABLES documented in this encounter Visit Diagnoses Diagnosis Encounter for screening mammogram for malignant neoplasm of breast Other screening mammogram documented in this encounter Care Teams Supervisor Home Economics Relationship Specialty Start Date End Date Angelic Silva APRN [facility] [address] [place] [phone] PCP - General 03/06/23 documented as of this encounter
--- OUTSIDE RECORDS SUMMARY | 2024-01-26 12:51 | XMS_ITS | Encounter Summary ---
Author Organization [facility] Address [address] [place] [address] Care Team Providers Care Cyber Security Architect Name Role Phone Morgan Panchal Primary Care Provider Reason for Visit * Reason Onset Date Comments Prior Auth, Medication 10/25/2021 Encounter Details Date Type Department Care Team (Late st Contact Info) Description 10/25/2021 Telephone [facility] ENT- Main [place] [address] [place] [address] Walter Elliott RN [address] [place] [address] Prior Auth, Medication Social History Tobacco Use Types Packs/Day Years [...] encounter Miscellaneous Notes * Telephone Encounter - Walter Elliott RN - 11/08/2021 1233 EDT Denied, reached out to patient via My chart to offer compound at [place]. * Telephone Encounter - Walter Elliott RN - 10/25/2021 1023 EDT Budesonide requires PA, submitted via [facility] documented in this encounter Plan of Treatment Upcoming Encounters Date Type Department Care Team (Late st Contact Info) Description 01/31/2024 10:15 EDT Telemedicine [facility] Neurology - [address] [id number] Med Maldonado MD [address] [place] [address], Level [address] [place] [phone] 08/31/2024 9:40 EST Appointment Naz Perez [address] [id number] documented as of this encounter Visit Diagnoses Not on filedocumented in this encounter Care Teams Cyber Security Architect Relationship Specialty Start Date End Date Morgan Panchal PA PCP - General 03/27/20 03/05/23 documented as of this encounter
--- OUTSIDE RECORDS SUMMARY | 2024-01-26 12:51 | XMS_ITS | Encounter Summary ---
Author Organization [facility] Address [address] [place] [address] Care Team Providers Care Scale Mechanic Name Role Phone Morgan Panchal Primary Care Provider [phone] Reason for Visit * Reason Onset Date Comments Referral Request 09/20/2021 Encounter Details Date Type Department Care Team (Late st Contact Info) Description 09/24/2021 Telephone [facility] Child Psychiatry [address] [id number] Nesha Martinez, [address], [address] [place] [phone] Referral Request Social History Tobacco Use Types [...] Contact Info) Description 01/31/2024 10:15 EDT Telemedicine [facility] Neurology - [address] [id number] Med Maldonado MD [address] [place] [address], [address] [place] [address] 08/31/2024 9:40 EST Appointment Naz Perez [address] [phone] documented as of this encounter Visit Diagnoses Not on filedocumented in this encounter Care Teams Scale Mechanic Relationship Specialty Start Date End Date Morgan Panchal PA PCP - General 03/27/20 03/05/23 documented as of this encounter
--- OUTSIDE RECORDS SUMMARY | 2024-01-26 12:51 | XMS_ITS | Encounter Summary ---
Author Organization [facility] Address [address] [place] [address] Care Team Providers Care Firer Tunnel Kiln Name Role Phone Angelic Silva APRN Primary Care Provider [phone] Reason for Visit * Reason Onset Date Comments Appointment Related 04/07/2023 Encounter Details Date Type Department Care Team ([facility] st Contact Info) Description 04/07/2023 Telephone [facility] Neurology - [address] [place] [address] [place], [place] [address] Unknown, Provider, Appointment Related Social History Tobacco Use Types [...] encounter Miscellaneous Notes * Telephone Encounter - Andreia Carranza - 04/21/2023 1324 EDT Called yolette and scheduled NPV in person with Dr. Salazar on Mon10/17/23 at 2PM. Scheduled from referral and added to wait list. * Telephone Encounter - Andreia Carranza - 04/07/2023 1603 EDT LM for Yolette to call and schedule a NPV via My Chart Televideo Extended with [facility]. It can also be an in person NPV with Dr. Salazar Please assign referral - documented in this encounter Plan of Treatment Upcoming Encounters Date Type Department Care Team (Late st Contact Info) Description 01/31/2024 10:15 EDT Telemedicine [facility] Neurology - [address] [place] [address] [place], [place] [address] Med Maldonado MD 1 [facility], Level [address] [place] [address] 08/31/2024 9:40 EST Appointment Naz Perez [address] [address] documented as of this encounter Visit Diagnoses Not on filedocumented in this encounter Care Teams Firer Tunnel Kiln Relationship Specialty Start Date End Date Angelic Silva APRN [address] [place] [address] PCP - General 03/06/23 documented as of this encounter
--- OUTSIDE RECORDS SUMMARY | 2024-01-26 12:52 | XMS_ITS | Encounter Summary ---
Author Organization [facility] Address [address] [place] [address] Care Team Providers Care Maple Syrup Maker Name Role Phone Morgan Panchal Primary Care Provider [phone] Encounter Details Date Type Department Care Team (Latest Contact Info) Description 05/17/2020 11:30 EST Phlebotomy Only [facility] - [facility] [address] [place] [address] Screening for condition; Encounter for screening Social History Tobacco Use Types Packs/Day Years [...] Info) Description 01/31/2024 10:15 EDT Telemedicine [facility] Neurology - [address] [place] [address] [place], [place] [id number] Med Maldonado MD [address] [facility], Level [address] [place] [phone] 08/31/2024 9:40 EST Appointment Naz Perez [address] [id number] documented as of this encounter Visit Diagnoses Diagnosis Screening for condition Screening for unspecified condition Encounter for screening Screening for unspecified condition documented in this encounter Orders Lab Orders Without Results Count Last Ordered D ate First Ordered Date COVID-19 TESTING 2 07/15/2020 documented in this encounter Care Teams Maple Syrup Maker Relationship Specialty Start Date End Date Morgan Panchal PA PCP - General 03/27/20 03/05/23 documented as of this encounter
--- OUTSIDE RECORDS SUMMARY | 2024-01-26 12:52 | XMS_ITS | Encounter Summary ---
Author Organization [facility] Address [address] [place] [address] Care Team Providers Care Award Machine Operator Name Role Phone Morgan Panchal Primary Care Provider [phone] Encounter Details Date Type Department Care Team (Late st Contact Info) Description 04/24/2020 Transcribe Orders [facility] [place] [facility] Testing [address] [place] [address] Radha Chanel, YOVANY [address] [place] [phone] Screening for condition (Primary Dx) Social History Tobacco Use Types [...] 22:01 EDT Sexual Orientation Not on file COVID-19 Exposure Response Date Recorded In the last month, have you been in contact with someone who was confirmed or suspected to have Coronavirus / COVID-19? No / Unsure 04/15/2020 19:47 EDT documented as of this encounter Functional Status [...] Contact Info) Description 01/31/2024 10:15 EDT Telemedicine [facility] Neurology - [address] [place] [address] [place], [place] [address] Med Maldonado MD [address] [place] [address], [address] [place] [phone] 08/31/2024 9:40 EST Appointment Naz Perez [address] [phone] Scheduled Orders Name Type Priority Associated Diagnoses Orde r Schedule COVID-19 TESTING Microbiology Routine Screening for condition Expected: 04/24/2020 (Approximate), Expires: 04/24/2021 documented as of this encounter Visit Diagnoses Diagnosis Screening for condition- Primary Screening for unspecified condition documented in this encounter Care Teams Award Machine Operator Relationship Specialty Start Date End Date Morgan Panchal PA PCP - General 03/27/20 03/05/23 documented as of this encounter
--- OUTSIDE RECORDS SUMMARY | 2024-01-26 12:52 | XMS_ITS | Encounter Summary ---
Author Organization [facility] Address [address] [place] [address] Care Team Providers Care Engineering Programmer Name Role Phone Morgan Panchal Primary Care Provider [phone] Reason for Referral * Radiology Services (Routine) - Closed Specialty Diagnoses / Procedures Referred By Tito hernandez Referred To Contact Radiology Diagnoses Chronic pain of both knees Patellar instability of both knees Patellofemoral arthritis of right knee Procedures MR KNEE WO CONTRAST RIGHT Blake Shearer MD [address] [place] [phone] Referral ID Status Reason Start Date Expiration Date Visits Re quested Visits Authorized [id number] Closed 12/28/2020 06/25/2021 1 1 Reason for Visit * Radiology Services (Routine) - Closed Specialty Diagnoses / Procedures Referred By Contzen hernandez Referred To Contact Radiology Diagnoses Chronic pain of both knees Patellar instability of both knees Patellofemoral arthritis of right knee Procedures MR KNEE WO CONTRAST RIGHT Blake Shearer MD [address] [place] [address] Referral ID Status Reason Start Date Expiration Date Visits Re quested Visits Authorized [id number] Closed 12/28/2020 06/25/2021 1 1 Encounter Details Date Type Department Care Team (Latest Contact Info) Description 01/08/2021 18:40 EDT - 01/08/2021 23:59 EDT Hospital Encounter Naz Perez [facility] [address] [place] [address] Chronic pain of both knees; Patellar instability of both knees; Patellofemoral arthritis of right knee Discharge Disposition: Home or Self Care Social [...] have Coronavirus / COVID-19? No / Unsure 01/08/2021 18:39 EDT documented as of this encounter Functional [...] Sig Dispensed Refills Start Date End Date ibuprofen (MOTRIN) 400 mg tablet Take 1 Tab by mouth every 4 hours as needed for Pain. 01/09/2014 INTRAUTERINE DEVICE, IUD, INTRAUTERINE by intrauterine route. modafiniL (PROVIGIL) 200 mg tablet Take 1 Tablet by mouth 2 times daily. Multivitamins with Minerals tablet tablet Take 1 Tablet by mouth daily. acetaminophen (TYLENOL) 325 mg tablet Take 2 Tabs by mouth as needed for Pain (). 01/02/2014 10/18/2021 buPROPion (WELLBUTRIN SR) 100 mg SR tablet Take 100 mg by mouth daily. 10/18/2021 cholecalciferol, Vitamin D3, 1,000 unit tablet Take 5,000 Units by mouth daily. 10/18/2021 escitalopram oxalate (LEXAPRO) 10 mg tablet Take 2 Tablets by mouth daily. 07/11/2023 glucosam/chond-msm1/C/m ang/bor (OCBYUZOPYQA-OCXFK-OBM COMPLEX ORAL) Take by mouth. 10/18/2021 herbal drugs (FIBER DIET ORAL) Take by mouth. 10/18/2021 loratadine (CLARITIN) 10 mg tablet Take 10 mg by mouth daily. 10/18/2021 meclizine (ANTIVERT) 25 mg tablet Take 1 [...] Description 01/31/2024 10:15 EDT Telemedicine [facility] Neurology - [address] [phone] Med Maldonado MD [address] [place] [address], [address] [place] [phone] 08/31/2024 9:40 EST Appointment Naz Perez [phone] [place], [place] [phone] documented as of this encounter Procedures Procedure Name Priority Date/Time Associated Diagnosis Comments MR KNEE WO CONTRAST RIGHT Routine 01/08/2021 19:44 EDT Chronic pain of both knees Patellar instability of both knees Patellofemoral arthritis of right knee documented in this encounter Results * MR KNEE WO CONTRAST RIGHT (01/08/2021 19:44 EDT) Anatomical Region Laterality Modality Lower Extremities Right Magnetic Reson ance 01/12/2021 14:2 8 EDT Impressions 01/12/2021 14:28 EDT Right Knee MRI 1. Postsurgical changes from prior medial patellofemoral ligament reconstruction. The reconstructed MPFL appears grossly intact. 2. Postsurgical changes of prior tibial tubercle osteotomy presumably in the setting of a tibial tubercle transfer procedure. The metallic susceptibility artifact related to the fixation screws obscures assessment in this area. 3. Developmental patellofemoral osseous dysplastic changes including dominant lateral patellar facet and shallow femoral trochlear groove. 4. Region of chondral fissuring and associated chondral delamination along the lateral patellar facet with underlying small subchondral cystic foci and mild reactive edema-like marrow signal change, occurring in a background of at least mild patellofemoral articular cartilage thinning. 5. The visible distal aspect of the patellar tendon shows tendinosis with mild to moderate tendon thickening. 6. Additional findings and details, as above. . I have personally reviewed the images and the above interpretation and agree with the findings. Narrative 01/12/2021 14:28 EDT EXAM: Right MR KNEE WO CONTRAST RIGHT ??01/08/2021 7:00 PM TECHNIQUE: Routine MRI of the knee wo contrast HISTORY: ?? bilateral knee pain COMPARISON: Right knee radiograph 12/28/2020 TECHNIQUE: Routine MRI of the right knee. No intravenous contrast administration. FINDINGS: Cruciate Ligaments: ACL: Intact. PCL: Intact. Medial Compartment: Medial Meniscus: The medial meniscus and root ligaments are intact. Cartilage: Preserved. Medial Supporting Structures: The MCL appears grossly intact, with no evidence for recent tear. Lateral Compartment: Lateral Meniscus: The lateral meniscus and root ligaments are intact. Cartilage: Preserved. Lateral Supporting Structures: Intact. Patellofemoral Compartment: Extensor Mechanism: Intact. The visible distal aspect of the patellar tendon shows tendinosis with mild to moderate tendon thickening. The visualized distal quadriceps tendon shows mild tendinosis. Cartilage: Region of chondral fissuring and associated chondral delamination along the lateral patellar facet and occurring in a background of at least mild patellofemoral articular cartilage thinning. [place]: There are postsurgical changes from a prior medial patellofemoral ligament reconstruction with tendon allograft including solitary surgical screw introduced into the upper aspect of the medial femoral condyle and two suture anchors introduced into the medial aspect of the patella. The reconstructed MPFL appears grossly intact. Joint Space: There is a small volume of fluid in the knee joint but with no sizable knee joint effusion demonstrated. Bones: Correlating with the recent right knee radiographs is metallic susceptibility artifact related to the 2 surgical screws associated with a tibial tubercle osteotomy in the setting of prior tibial tubercle transfer procedure. The metallic susceptibility artifact obscures osseous and soft tissue assessment in the region of the surgical screws. Again noted are developmental patellofemoral osseous dysplastic changes including dominant lateral patellar facet and shallow femoral trochlear groove. Small subchondral cystic foci underlying regions of chondral fissuring and chondral delamination on the lateral patellar facet with associated reactive edema-like marrow signal change. Extra-articular Soft Tissues: Postsurgical changes noted. Procedure Note Isak Wray MD - 01/12/2021 EXAM: Right MR KNEE WO CONTRAST RIGHT 01/08/2021 7:00 PM TECHNIQUE: Routine MRI of the knee wo contrast HISTORY: bilateral knee pain COMPARISON: Right knee radiograph 12/28/2020 TECHNIQUE: Routine MRI of the right knee. No intravenous contrastadministration. FINDINGS: Cruciate Ligaments: ACL: Intact. PCL: Intact. Medial Compartment: Medial Meniscus: The medial meniscus and root ligaments are intact. Cartilage: Preserved. Medial Supporting Structures: The MCL appears grossly intact, with noevidence for recent tear. Lateral Compartment: Lateral Meniscus: The lateral meniscus and root ligaments are intact. Cartilage: Preserved. Lateral Supporting Structures: Intact. Patellofemoral Compartment: Extensor Mechanism: Intact. The visible distal aspect of the patellartendon shows tendinosis with mild to moderate tendon thickening. Thevisualized distal quadriceps tendon shows mild tendinosis. Cartilage: Region of chondral fissuring and associated chondraldelamination along the lateral patellar facet and occurring in abackground of at least mild patellofemoral articular cartilage thinning. [place]: There are postsurgical changes from a prior medialpatellofemoral ligament reconstruction with tendon allograft includingsolitary surgical screw introduced into the upper aspect of the medialfemoral condyle and two suture anchors introduced into the medial aspectof the patella. The reconstructed MPFL appears grossly intact. Joint Space: There is a small volume of fluid in the knee joint but withno sizable knee joint effusion demonstrated. Bones: Correlating with the recent right knee radiographs is metallicsusceptibility artifact related to the 2 surgical screws associated with atibial tubercle osteotomy in the setting of prior tibial tubercle transferprocedure. The metallic susceptibility artifact obscures osseous and softtissue assessment in the region of the surgical screws. Again noted are developmental patellofemoral osseous dysplastic changesincluding dominant lateral patellar facet and shallow femoral trochleargroove. Small subchondral cystic foci underlying regions of chondral fissuring andchondral delamination on the lateral patellar facet with associatedreactive edema-like marrow signal change. Extra-articular Soft Tissues: Postsurgical changes noted. IMPRESSION Right Knee MRI 1. Postsurgical changes from prior medial patellofemoral ligamentreconstruction. The reconstructed MPFL appears grossly intact. 2. Postsurgical changes of prior tibial tubercle osteotomy presumably inthe setting of a tibial tubercle transfer procedure. The metallicsusceptibility artifact related to the fixation screws obscures assessmentin this area. 3. Developmental patellofemoral osseous dysplastic changes includingdominant lateral patellar facet and shallow femoral trochlear groove. 4. Region of chondral fissuring and associated chondral delamination alongthe lateral patellar facet with underlying small subchondral cystic fociand mild reactive edema-like marrow signal change, occurring in abackground of at least mild patellofemoral articular cartilage thinning. 5. The visible distal aspect of the patellar tendon shows tendinosis withmild to moderate tendon thickening. 6. Additional findings and details, as above. . I have personally reviewed the images and the above interpretation andagree with the findings. Blake Shearer MD IM MRI ORDERAB LES documented in this encounter Visit Diagnoses Diagnosis Chronic pain of both knees Patellar instability of both knees Other specified disorders of lower leg joint Patellofemoral arthritis of right knee documented in this encounter Care Teams Engineering Programmer Relationship Specialty Start Date End Date Morgan Panchal PA PCP - General 03/27/20 03/05/23 documented as of this encounter
--- OUTSIDE RECORDS SUMMARY | 2024-01-26 12:52 | XMS_ITS | Encounter Summary ---
Author Organization [facility] Address [address] [place] [address] Care Team Providers Care Tallow Refiner Name Role Phone Morgan Panchal Primary Care Provider [phone] Reason for Referral * Radiology Services (Routine) - Closed Specialty Diagnoses / Procedures Referred By Contac t Referred To Contact Diagnoses Lumbar pain Procedures XR LUMBAR SPINE 2-3 VIEWS Jesus Rodriguez Chi, MD [address] [place] [phone] Referral ID Status Reason Start Date Expiration Date Visits Re quested Visits Authorized [id number] Closed 08/24/2020 1 1 Reason for Visit * Radiology Services (Routine) - Closed Specialty Diagnoses / Procedures Referred By Contac t Referred To Contact Diagnoses Lumbar pain Procedures XR LUMBAR SPINE 2-3 VIEWS Jesus Rodriguez Chi, MD [address] [place] [phone] Referral ID Status Reason Start Date Expiration Date Visits Re quested Visits Authorized [id number] Closed 08/24/2020 1 1 Encounter Details Date Type Department Care Team (Latest Contact Info) Description 09/08/2020 15:51 EST - 09/08/2020 23:59 EST Hospital Encounter [facility] [address] [place], [place] [phone] Lumbar pain Discharge Disposition: Home or Self Care Social [...] Tablets by mouth daily. 07/11/2023 glucosam/chond-msm1/C/m ang/bor ([id number] COMPLEX ORAL) Take by mouth. 10/18/2021 herbal [...] Contact Info) Description 01/31/2024 10:15 EDT Telemedicine [facility] Neurology - [address] [place] [address] [place] [id number] Med Maldonado MD [address] [place] [address], [address] [place] [phone] 08/31/2024 9:40 EST Appointment Naz Perez [address] [address] documented as of this encounter Procedures Procedure Name Priority Date/Time Associated Diagnosis Comments XR LUMBAR SPINE 2-3 VIEWS Routine 09/08/2020 16:05 EST Lumbar pain documented in this encounter Results * XR LUMBAR SPINE 2-3 VIEWS (09/08/2020 16:05 EST) Anatomical Region Laterality Modality Spine Computed Radiogr aphy 09/09/2020 11:4 4 EST Impressions 09/09/2020 11:44 EST 1. ??Unremarkable evaluation of the lumbar spine. 2. ??Malalignment of the pubic symphysis with slight superior subluxation of the left pubis with respect to the right Narrative 09/09/2020 11:44 EST XR LUMBAR SPINE 2-3 VIEWS09/08/2020 4:00 PM SIGNS & SYMPTOMS / COMMENTS: chronic pain; assess for DDD COMPARISON: None available TECHNIQUE: AP and lateral radiographs of the lumbar spine were obtained. FINDINGS: There is no acute fracture or malalignment. Vertebral body heights and disc spaces are preserved. Sacroiliac joints are within normal limits. There is slight superior subluxation of the left pubis with respect to the right. Bones and soft tissues are otherwise unremarkable. Procedure Note Azalia Baldwin MD - 09/09/2020 XR LUMBAR SPINE 2-3 VIEWS09/08/2020 4:00 PM SIGNS & SYMPTOMS / COMMENTS: chronic pain; assess for DDD COMPARISON: None available TECHNIQUE: AP and lateral radiographs of the lumbar spine were obtained. FINDINGS: There is no acute fracture or malalignment. Vertebral body heights anddisc spaces are preserved. Sacroiliac joints are within normal limits.There is slight superior subluxation of the left pubis with respect to theright. Bones and soft tissues are otherwise unremarkable. IMPRESSION 1. Unremarkable evaluation of the lumbar spine. 2. Malalignment of the pubic symphysis with slight superior subluxationof the left pubis with respect to the right Jesus Rodriguez MD IMG DIAGNOSTIC IMAGI NG ORDERABLES documented in this encounter Visit Diagnoses Diagnosis Lumbar pain Lumbago documented in this encounter Care Teams Tallow Refiner Relationship Specialty Start Date End Date Morgan Panchal PA PCP - General 03/27/20 03/05/23 documented as of this encounter
--- OUTSIDE RECORDS SUMMARY | 2024-01-26 12:52 | XMS_ITS | Encounter Summary ---
Author Organization [facility] Address [address] [place] [address] Care Team Providers Care Agency Sales Representative Name Role Phone Morgan Panchal Primary Care Provider [phone] Reason for Visit * Reason Comments Pain Encounter Details Date Type Department Care Team (Late st Contact Info) Description 10/27/2020 9:00 EDT Office Visit [facility] Foot & Ankle Program - [address] [place] [address] Kendra Bradford NP [address] [place] [address] Pain of right heel (Primary Dx) Social History Tobacco Use Types [...] as of this encounter Progress Notes * Kendra Bradford, HOME CARE COMPANION - 10/27/2020 0900 EDT Diagnosis: ICD-10-CM ICD-9-CM 1. Pain of right heel M79.671 729.5 Yolette Tellez is being seen today for Pain of the Right Foot . She was originally sent as a consultation from Dr. Panchal SUBJECTIVE: Yolette Tellez is a 40 y.o. female established patient who returns for evaluation of her right plantar heel pain that started over a year ago without an injury or increase in her level of physical activity. I first met her through telemedicine video conferencing on 07/21/2020 as she is tried Tylenol, ibuprofen and a compression stocking with no positive results. A fgls-qj-hzcp visit was suggested and she was found to have fat pad atrophy as well as pain on the plantar fascia insertion. She wasprovided with a walking boot which she used for 6 weeks. 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 Unfortunately, on the other days of the week when she was working, she stated that the pain was awful. She was advised to continue using the boot and to also be nonweightbearing as much as possible at work on a knee roller. Today she states that things are okay and, overall her heel pain is decreased. She had several hours of sick time available so she has been taking Tuesdays off several weeks in a row and that seems to help. She has good days and bad days and has been using the scooter still she has been going to physical therapy and they are using ultrasound, massage and stretching exercise and that seems to be going well. She does pool exercises for her back and has noticed an she has no pain at all when she is walking in the pool. She went to the [employer] and they suggested Hoka shoes with inserts and U-shaped heel inserts today are feeling very comfortable. Foot & Ankle Pain Assessment: Pain Orientation : Right Pain Location: Foot Numeric Pain Level (Scale 1-10): 3 Patient Active Problem List Diagnosis Date Noted ??? 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 Pain of right heel 07/21/2020 Priority: Medium ??? Borderline personality disorder (HCC-CMS) 08/08/2019 Priority: Medium ??? Adjustment disorder with mixed anxiety and depressed mood 08/01/2019 Priority: Medium ??? Obstructive sleep apnea syndrome 08/06/2019 ??? Patellar instability of both knees 08/06/2019 ??? Small fiber neuropathy 09/27/2012 Past Medical History: Diagnosis Date ??? Chickenpox ??? Gestational hypertension ??? Numbness and tingling of foot ??? Pap smear, abnormal ASCUS and HPV ??? Patellar instability Bilateral ??? School problem ??? Wears glasses Past Surgical History: Procedure Laterality Date ??? COLPOSCOPY iud ??? PATELLA SURGERY Right 2012 to prevent dislocation? WISDOM TOOTH EXTRACTION 1997 Social History Tobacco Use ??? Smoking status: Never Smoker ??? Smokeless tobacco: Never Used Substance Use Topics ??? Alcohol use: Yes Comment: rare- once a year Family History Problem Relation Age of Onset ??? High Blood Pressure Mother ??? High Cholesterol Mother ??? Arthritis-Osteo Mother ??? High Cholesterol Father ??? High Blood Pressure Maternal Grandfather ??? Diabetes Maternal Grandfather ??? High Cholesterol Maternal Grandfather ??? Cancer Maternal Grandfather prostate ??? Arthritis-Osteo Sister has had surgeries on the knees. Current Outpatient Medications Medication Sig Dispense Refill ??? acetaminophen (TYLENOL) 325 mg tablet Take 2 Tabs by mouth as needed for Pain (). (Patient not taking: Reported on 09/08/2020) ??? buPROPion (WELLBUTRIN SR) 100 mg SR tablet Take 100 mg by mouth daily. ??? cholecalciferol, Vitamin D3, 1,000 unit tablet Take 5,000 Units by mouth daily. ??? escitalopram oxalate (LEXAPRO) 10 mg tablet Take 20 mg by mouth daily. ??? glucosam/chond-msm1/C/yohan/bor (NESKLCUPREJ-ABEYW-HFZ COMPLEX ORAL) Take by mouth. ??? herbal drugs (FIBER DIET ORAL) Take by mouth. ??? ibuprofen (MOTRIN) 400 mg tablet Take 1 Tab by mouth every 4 hours as needed for Pain. (Patientnot taking: Reported on 09/08/2020) ??? INTRAUTERINE DEVICE, IUD, INTRAUTERINE by intrauterine route. ??? loratadine (CLARITIN) 10 mg tablet Take 10 mg by mouth daily. ??? meclizine (ANTIVERT) 25 mg tablet Take 25 mg by mouth as needed. ??? modafiniL (PROVIGIL) 200 mg tablet Take 200 mg by mouth daily. ??? montelukast (SINGULAIR) 10 mg tablet Take 10 mg by mouth daily. ??? Multivitamins with Minerals tablet tablet Take 1 Tab by mouth daily. ??? omeprazole (PRILOSEC) 20 mg capsule Take 20 mg by mouth daily. ??? SUMAtriptan (IMITREX) 50 mg tablet Take 50 mg by mouth as needed for Migraine. No current facility-administered medications for this visit. Allergies Allergen Reactions ??? Other - See Comments Environmental Allergies REVIEW OF SYSTEMS: Negative, except for the pertinent positives noted above OBJECTIVE: Constitutional: NAD Psychiatric: A&O x3, mood and affect appropriate Gait: non weightbearing on the right side. Exam of the right foot/ankle: Neurology: sensation intact Vascular: pedal pulses palpable Musculoskeletal: ROM about the ankle is decreased mildly; motor strength about the ankle is intact Skin: intact Tenderness: mild on plantar calcaneus; none in plantar fascia heel insertion today Swelling: mild in plantar heel Ecchymosis: absent X-rays today: none ASSESSMENT: ICD-10-CM ICD-9-CM 1. Pain of right heel M79.671 729.5 Satisfactory course of healing; her symptoms have gone from moderate or severe to mild or none PLAN: -Immobilization: as tolerated, wean from the walking boot -Activity: progress to weightbearing as tolerated -Comfort: rest, ice and elevation as needed -Physical Therapy: continue until discharged -Stretching/Strengthening: HEP per PT recommendations -Medications: OTC as needed for pain -Follow up: Return if symptoms worsen or fail to improve. Symptoms for which to seek care were reviewed. All the questions were answered. Patient voices understanding and agrees with the plan. Dr. Elliott Miramontes MD, was the attending physician in the clinic today but was not consulted during this visit. I spent a total of 31 minutes on the date of this encounter meeting with the patient and reviewing documentation/coordinating care as described in the above note. Cc: Referring Provider - Dr. Panchal PCP - Morgan Panchal Portions of this document have been prepared with speech recognition software or keyboard senior database engineer techniques. Minor irregularities or keyboarding misprints may be present documented in this encounter Plan of Treatment Upcoming Encounters Date Type Department Care Team (Late st Contact Info) Description 01/31/2024 10:15 EDT Telemedicine [facility] Neurology - [address] [address] Med Maldonado MD [address] [place] [address], [address] 2 [place] [phone] 08/31/2024 9:40 EST Appointment Naz [address] [id number] documented as of this encounter Visit Diagnoses Diagnosis Pain of right heel- Primary Pain in limb documented in this encounter Care Teams Agency Sales Representative Relationship Specialty Start Date End Date Morgan Panchal PA PCP - General 03/27/20 03/05/23 documented as of this encounter
--- OUTSIDE RECORDS SUMMARY | 2024-01-26 12:52 | XMS_ITS | Encounter Summary ---
Author Organization [facility] Address [address] [place] [address] Care Team Providers Care Client Services Director Name Role Phone Morgan Panchal Primary Care Provider [phone] Reason for Visit * Reason Onset Date Comments Appointment Related 08/13/2020 Encounter Details Date Type Department Care Team (Late st Contact Info) Description 08/13/2020 Telephone [facility] Sports Medicine Program - [address] [place] [address] Blake Shearer MD [address] [place] [phone] Appointment Related Social History Tobacco Use Types [...] encounter Miscellaneous Notes * Telephone Encounter - Diandra Gautam MA - 08/13/2020 1853 EST Left v/m. Monovisc injection (left knee) scheduled for 09/08/20. Monovisc VALID: 07/13/2020 - 09/12/2020. documented in this encounter Plan of Treatment Upcoming Encounters Date Type Department Care Team (Late st Contact Info) Description 01/31/2024 10:15 EDT Telemedicine [facility] Neurology - [address] [address] Med Maldonado MD [address] [place] [address], Level 2 [place] [phone] 08/31/2024 9:40 EST Appointment Naz Perez [address] [phone] documented as of this encounter Visit Diagnoses Not on filedocumented in this encounter Care Teams Client Services Director Relationship Specialty Start Date End Date Morgan Panchal PA PCP - General 03/27/20 03/05/23 documented as of this encounter
--- OUTSIDE RECORDS SUMMARY | 2024-01-26 12:52 | XMS_ITS | Encounter Summary ---
Author Organization [facility] Address [address] [place] [address] Care Team Providers Care Production Mechanic Name Role Phone Morgan Panchal Primary Care Provider Encounter Details Date Type Department Care Team (Late st Contact Info) Description 05/24/2021 11:10 EST Immunization [facility] [address] [place] [address] Social History Tobacco Use Types Packs/Day Years [...] Contact Info) Description 01/31/2024 10:15 EDT Telemedicine [facility] Neurology - [address] [place] [address] [place], [place] [id number] Med Maldonado MD [address] [place] [address], Level 2 [place] [phone] 08/31/2024 9:40 EST Appointment Naz Perez [address] [phone] documented as of this encounter Visit Diagnoses Not on filedocumented in this encounter Orders Immunization/Injection Count Last Ordered Date First Ordered Date COVID-19 MRNA VACCINE (PFIZE R COVID-19) PF 0.3 ML IM (12 YRS+) 1 05/24/2021 documented in this encounter Care Teams Production Mechanic Relationship Specialty Start Date End Date Morgan Panchal PA PCP - General 03/27/20 03/05/23 documented as of this encounter
--- OUTSIDE RECORDS SUMMARY | 2024-01-26 12:52 | XMS_ITS | Encounter Summary ---
Author Organization [facility] Address [address] [place] [address] Care Team Providers Care Stereotyper Helper Name Role Phone Morgan Panchal Primary Care Provider [phone] Reason for Visit * Reason Onset Date Comments Other 08/20/2020 Encounter Details Date Type Department Care Team (Late st Contact Info) Description 08/20/2020 Telephone [facility] Foot & Ankle Program - [facility] [address] [place] [address] Kendra Bradford NP [address] [place] [address] Other Social History Tobacco Use Types Packs/Day [...] encounter Miscellaneous Notes * Telephone Encounter - Nesha Hull MA - 08/20/2020 0916 EST Yolette called to say she was having increased pain in her heel. She has been walking on her toe in the boot as it hurts to much to put weight on the heel. She has been taking ibuprofen/tylenol to help. Has done everything that she was supposed to do per Dhara Stanton note. I spoke with Dhara Larkin and wanted the patient seen sooner. NESHA HULL MA 08/18/2020 documented in this encounter Plan of Treatment Upcoming Encounters Date Type Department Care Team (Late st Contact Info) Description 01/31/2024 10:15 EDT Telemedicine [facility] Neurology - [address] [place] [address] [place], [place] [id number] Med Maldonado MD [address] [place] [address], Level 2 [place] [phone] 08/31/2024 9:40 EST Appointment Naz Perez [address] [phone] documented as of this encounter Visit Diagnoses Not on filedocumented in this encounter Care Teams Stereotyper Helper Relationship Specialty Start Date End Date Morgan Panchal PA PCP - General 03/27/20 03/05/23 documented as of this encounter
--- OUTSIDE RECORDS SUMMARY | 2024-01-26 12:52 | XMS_ITS | Encounter Summary ---
Author Organization [facility] Address [address] [place] [address] Care Team Providers Care Supervisor Welding Equipment Repairer Name Role Phone Morgan Panchal Primary Care Provider [phone] Reason for Visit * Reason Comments Knee Pain LT KNEE DOI 02/2020 N O DOS Encounter Details Date Type Department Care Team (Late st Contact Info) Description 06/08/2020 9:00 EST Office Visit [facility] Sports Medicine Program - [address] [place] [address] Blake Shearer MD [address] [place] [phone] Patellar instability of both knees (Primary Dx) Social History Tobacco Use Types [...] have Coronavirus / COVID-19? No / Unsure 06/08/2020 9:03 EST documented as of this encounter Functional Status [...] as of this encounter Progress Notes * Josse Forrest MD - 06/08/2020 0900 EST OUTPATIENT SPORTS CLINIC NOTE CC: Left knee pain and instability HPI: Patient is a 39-year-old female who presents to clinic today as a new patient evaluation regarding left knee pain and instability in the setting of extensive history of bilateral patellar instability. 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 She does not recallthe specific initial event but that is when she remembers the first time both of her patellas dislocated and needed to be pushed back into place. Over the years her right and left hip both dislocatedabout 15 times. Multiple events have required ED visits to get them relocated. She she had surgery on her right knee in 2014 in [place] with where she will undergo underwent a MPFL reconstruction and Edis osteotomy. We do not have the op report for that surgery to review at this time. She has not experienced a right patella dislocation since the surgery but over the past few years her pain has returned under the right kneecap so much so that she is no longer pleased with the results from that surgery. She is here today though to discuss the pain that she has been having in her left knee as well as well as the issues with instability. This past February she experienced left knee patellar dislocation when she was sitting down into an inner tube in the water and twisted her left knee and her patella dislocated. It was out for about a minute and she was able to root relocated on her own. Following this incident she went to the emergency department where x- rays were done to confirm that there was no fracture or foreign body. She was evaluated by Dr. Villalobos in our orthopedic sports clinic and eventually underwent an MRI which she was told that she had an MPFL rupture. Thepain in both of her knees are under her kneecaps this is a constant pain and she experiences it with grinding hits worse with activities especially going up and down stairs squatting and running. 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 The pain and grinding is worse in her right knee but the instability is worse in her left knee. At this point she feels like she has done everything nonoperatively for her left knee and would like to proceed with surgery. ROS: A 10-point review of systems was obtained and pertinent positives are included in the HPI. Allothers are negative. PMHx: Depression, anxiety, reflux, seasonal allergies PSHx: Right knee MPFL reconstruction and Edis osteotomy 2014 [place] ([facility]), wisdom teeth FHx: Sister with knee issues (not instability) SocHx: Works with special needs children, Rarely drinks, denies tobacco or IVDU Med: Reviewed All: Seasonal Phx Exam: General: Awake, alert, pleasantly conversant. Alone. Cardiovascular: Regular rate and rhythm by palpation of peripheral pulse. Respiratory: Normal respiratory effort. HEENT: Extraocular movements intact. Psych: Normal affect. Musculoskeletal: Focused musculoskeletal exam of the left lower extremity demonstrates skin intact about the left knee. 0-120 degrees of flexion/extension. Tender over medial joint line. Firm endpoints with varus and valgus stress, santa's, and drawer tests. Positive patellar apprehension with medial to lateral pressure. Able to translate patella more laterally than right. Crepitus with patellar grinding. No J sign. Palpable distal pulses. Sensation is intact to light touch and 5/5 strength in distal muscle groups. Focused exam of right lower extremity demonstrates well healed anterior scars. Some apprehension with medial to lateral patellar pressure. Unable to translate patella as far as left. Firm end points with varus, valgus, santa's, and drawer tests. Mild tenderness over medial joint line. Crepitus with patellar grinding. No J sign. Palpale distal pulses. Sensation is intact to light touch and 5/5 strength in distal muscle groups. 0-120 degrees of flexion/extension. Imaging: X-rays of the left knee taken February 24, 2020 demonstrate no acute fractures dislocations or foreign bodies. MRI of the left knee taken 04/15/2020 demonstrates injury to the medial patella femoral ligament with attenuation near the patellar insertion. She is a trochlear dysplasia with shallow groove. She hasdegenerative changes of the cartilage of the medial patellar facet and the patella appears subluxed laterally. She also has abnormal patellar shape. The MRI report was read measured a TT-TG distance of 17 mm. Corticosteroid Injection Procedure (): bilateral knee Previous office notes and imaging studies were reviewed. This patient's past medical history, medications, allergies/adverse drug reactions were reviewed and updated. Risks, benefits and alternatives were discussed with the patient and consent was obtained. The final Verification/time out immediately prior to incision/procedure has been conducted by me and membersof the procedural team as appropriate to their involvement in the procedure. The patient???s identity, procedure, and when applicable the: side/site, patient position, availability of implants and any special equipment or special requirements was verbally confirmed prior to the procedure After discussing the potential diagnostic and therapeutic benefits and the relative risks, the pre-procedure briefing was completed and the knee injection site prepped with chlorahexadine. The bilateral knee was injected with 4 mL 1% lidocaine and 1 mL (80 mg) DepoMedrol. Sterile dressing placed. Debrief completed. Patient tolerated procedure well. Steroid flare risk and self-management discussed. Patient will contact me if they develop any signs consistent with infection A / P: Patient is a 39-year-old female who presents to clinic with a chief complaint of left knee pain and instability with a history of bilateral patellar instability. We had a lengthy discussion with the patient regarding the pathophysiology of patellar instability. She has undergone a right kneeMPFL reconstruction with Edis osteotomy and is not pleased with the results as she has had an increase in her right knee pain. She has also started to experience increased sensations of instability over the past 2 years but has not had a carlos manuel dislocation of her right patella since surgery. Wediscussed with her that there are multiple issues regarding her left knee that need to be addressed. First being the pain is likely from cartilage wear from the trauma from her dislocations. Regarding her instability there are multiple reasons including her anatomy with trochlear dysplasia, her abnormally shaped patella, and now with rupture of her MPFL from the dislocation in February. She has done extensive nonoperative treatment for her instability including rehab quad strengthening as well aswearing a J brace. We discussed that we could continue doing nonoperative management. Operative to address the instability we could start with an MPFL reconstruction but this would likely not reversethe trauma she has had to her patellar cartilage or resolve the patella pain. Other procedures could possibly include cartilage restorationist vs osteotomy. Trochleoplasty is also an option but is not performed by Dr. Shearer. At this time we would recommend corticosteroid injections to see if this does help relieve her pain and these were performed for her bilateral knees as discussed in the above procedure note. We would also like her to be seen in referral with Dr. Akshat Issa with [facility] orthopedics as he also specializes in this pathology including trochleoplasty procedures to see what route of management he would recommend as she has complex a presentation of her symptoms. We will discuss the patient with Dr. Issa and then follow up with the patient once she has been seen. Patient is in agreement with this plan. In the meantime she will also try to obtain the [address] scans for her right knee surgery The patient was seen and examined with Dr. Shearer who was present for the entire visit. Chris Forrest MD Orthopedic Surgery 10:56 06/08/20 [id number] * Blake Shearer MD - 06/08/2020 0900 EST Attestation statement: I saw and examined the patient with the resident/fellow. I agree with the findings and plan of care documented in the resident's/fellow's note. documented in this encounter Plan of Treatment Upcoming Encounters Date Type Department Care Team (Late st Contact Info) Description 01/31/2024 10:15 EDT Telemedicine [facility] Neurology - [address] [place] [address] [place], [place] [address] Med Maldonado MD [address] [place] [address], [address] [place] [phone] 08/31/2024 9:40 EST Appointment Naz Perez M[facility] [address] [place] [address] documented as of this encounter Visit Diagnoses Diagnosis Patellar instability of both knees- Primary Other specified disorders of lower leg joint documented in this encounter Care Teams Supervisor Welding Equipment Repairer Relationship Specialty Start Date End Date Morgan Panchal PA PCP - General 03/27/20 03/05/23 documented as of this encounter
--- OUTSIDE RECORDS SUMMARY | 2024-01-26 12:52 | XMS_ITS | Encounter Summary ---
Author Organization [facility] Address [address] [place] [address] Care Team Providers Care Wallpaper Hanger Name Role Phone Morgan Panchal Primary Care Provider [phone] Encounter Details Date Type Department Care Team (Latest Contact Info) Description 06/08/2020 Travel Social History Tobacco Use Types Packs/Day [...] Contact Info) Description 01/31/2024 10:15 EDT Telemedicine [facility] Neurology - [address] [place] [address] [place], [place] [address] Med Maldonado MD [address] [place] [address], Level [address] [place] [phone] 08/31/2024 9:40 EST Appointment Naz Perez [address] [address] documented as of this encounter Visit Diagnoses Not on filedocumented in this encounter Care Teams Wallpaper Hanger Relationship Specialty Start Date End Date Morgan Panchal PA PCP - General 03/27/20 03/05/23 documented as of this encounter
--- OUTSIDE RECORDS SUMMARY | 2024-01-26 12:52 | XMS_ITS | Encounter Summary ---
Author Organization [facility] Address [address] [place] [address] Care Team Providers Care Cnc Milling Machinist Name Role Phone Morgan Panchal Primary Care Provider [phone] Reason for Referral * Radiology Services (Routine) - Closed Specialty Diagnoses / Procedures Referred By Contac t Referred To Contact Radiology Diagnoses Patellar instability of left knee Patellar dislocation, left, initial encounter Procedures MR KNEE WO CONTRAST LEFT Walter Ferrer MD [address] [place] [phone] Referral ID Status Reason Start Date Expiration Date Visits Re quested Visits Authorized [id number] Closed 03/19/2020 09/15/2020 1 1 Reason for Visit * Radiology Services (Routine) - Closed Specialty Diagnoses / Procedures Referred By Contac t Referred To Contact Radiology Diagnoses Patellar instability of left knee Patellar dislocation, left, initial encounter Procedures MR KNEE WO CONTRAST LEFT Walter Ferrer MD [address] [place] [address] Referral ID Status Reason Start Date Expiration Date Visits Re quested Visits Authorized [id number] Closed 03/19/2020 09/15/2020 1 1 Encounter Details Date Type Department Care Team (Latest Contact Info) Description 04/15/2020 19:48 EDT - 04/15/2020 23:59 EDT Hospital Encounter Naz Perez [facility] [address] [place] [address] Patellar instability of left knee; Patellar dislocation, left, initial encounter Discharge Disposition: Home or Self Care Social [...] INTRAUTERINE DEVICE, IUD, INTRAUTERINE by intrauterine route. Multivitamins with Minerals tablet tablet Take 1 [...] Tablets by mouth daily. 07/11/2023 glucosam/chond-msm1/C/m ang/bor ([id number]-[id number]-VRZ COMPLEX ORAL) Take by mouth. 10/18/2021 herbal drugs (FIBER DIET ORAL) Take by mouth. 10/18/2021 loratadine (CLARITIN) 10 mg tablet Take 10 mg by mouth daily. 10/18/2021 montelukast (SINGULAIR) 10 mg tablet Take 10 mg by mouth daily. 10/17/2023 omeprazole (PRILOSEC) 20 mg capsule Take 2 Capsules by mouth daily. 07/11/2023 documented as of this encounter Discharge Disposition Disposition Code Departure Means Destination Home or Self Care documented in this encounter Plan of Treatment Upcoming Encounters Date Type Department Care Team (Late st Contact Info) Description 01/31/2024 10:[address] [facility] Neurology - [address] [id number] Med Maldonado MD [address] [place] [address], Level 2 [place] [phone] 08/31/2024 9:40 EST Appointment Naz Perez [address] [address] documented as of this encounter Procedures Procedure Name Priority Date/Time Associated Diagnosis Comments MR KNEE WO CONTRAST LEFT Routine 04/15/2020 20:32 EDT Patellar instability of left knee Patellar dislocation, left, initial encounter documented in this encounter Results * MR KNEE WO CONTRAST LEFT (04/15/2020 20:32 EDT) Anatomical Region Laterality Modality Lower Extremities Left Magnetic Reson ance 04/16/2020 15:4 4 EDT Impressions 04/16/2020 15:44 EDT 1. ??Sequela of lateral patellar dislocation including intermediate grade partial tearing of the medial patellofemoral retinaculum (patellar insertional fibers), lateral displacement of the patella, and impaction deformity of the inferior medial aspect of the medial patellar facet. 2. ??The above occurs in the setting of morphological changes including a dominant lateral patellar facet with a shallow trochlear groove. The tibial tubercle to trochlear groove distance measures 17 mm. 3. ??Patellar cartilage Demonstrates full-thickness fissuring along the median ridge and lateral patellar facet. 4. ??Small joint effusion. I have personally reviewed the images and the above interpretation and agree with the findings. Narrative 04/16/2020 15:44 EDT Exam: MR KNEE WO CONTRAST LEFT ??04/15/2020 8:00 PM Technique: Routine MRI of the knee without contrast History: left knee patellar instability, recent dislocation Comparison: Left knee radiograph 02/24/2020 Findings: Cruciate Ligaments: ACL: Intact PCL: Intact Medial Compartment: Medial Meniscus: Medial meniscus and root ligaments are intact. Cartilage: Preserved. Medial and Posteromedial Supporting Structures: Intact Lateral Compartment: Lateral Meniscus: Lateral meniscus and root ligaments are intact. Cartilage: Preserved. Lateral and Posterolateral Supporting Structures: Intact Patellofemoral Compartment: Extensor Mechanism: The quadriceps tendon and patellar tendon are intact. Cartilage: There is full thickness fissuring along the median ridge and lateral patellar facet. Impaction deformity is seen along the medial patellar facet. [place]inacula: There is intermediate grade partial tearing of the medial patellofemoral ligament Bones: ??Bone marrow signal is unremarkable. There are morphological changes of the patellofemoral compartment including a dominant lateral patellar facet with a shallow trochlear groove. The tibial tubercle trochlear groove distance measures 17 mm. Joint Space: ??Small joint effusion. Extra-articular Soft Tissues: ??Prepatellar edema. Procedure Note Neo Seo MD - 04/16/2020 Exam: MR KNEE WO CONTRAST LEFT 04/15/2020 8:00 PM Technique: Routine MRI of the knee without contrast History: left knee patellar instability, recent dislocation Comparison: Left knee radiograph 02/24/2020 Findings: Cruciate Ligaments: ACL: Intact PCL: Intact Medial Compartment: Medial Meniscus: Medial meniscus and root ligaments are intact. Cartilage: Preserved. Medial and Posteromedial Supporting Structures: Intact Lateral Compartment: Lateral Meniscus: Lateral meniscus and root ligaments are intact. Cartilage: Preserved. Lateral and Posterolateral Supporting Structures: Intact Patellofemoral Compartment: Extensor Mechanism: The quadriceps tendon and patellar tendon areintact. Cartilage: There is full thickness fissuring along the median ridge andlateral patellar facet. Impaction deformity is seen along the medialpatellar facet. Retinacula: There is intermediate grade partial tearing of the medialpatellofemoral ligament Bones: Bone marrow signal is unremarkable. There are morphologicalchanges of the patellofemoral compartment including a dominant lateralpatellar facet with a shallow trochlear groove. The tibial tubercletrochlear groove distance measures 17 mm. Joint Space: Small joint effusion. Extra-articular Soft Tissues: Prepatellar edema. IMPRESSION 1. Sequela of lateral patellar dislocation including intermediate gradepartial tearing of the medial patellofemoral retinaculum (patellarinsertional fibers), lateral displacement of the patella, and impactiondeformity of the inferior medial aspect of the medial patellar facet. 2. The above occurs in the setting of morphological changes including adominant lateral patellar facet with a shallow trochlear groove. Thetibial tubercle to trochlear groove distance measures 17 mm. 3. Patellar cartilage Demonstrates full-thickness fissuring along themedian ridge and lateral patellar facet. 4. Small joint effusion. I have personally reviewed the images and the above interpretation andagree with the findings. Walter Ferrer MD IMG MRI ORDERABLES documented in this encounter Visit Diagnoses Diagnosis Patellar instability of left knee Other joint derangement, not elsewhere classified, lower leg Patellar dislocation, left, initial encounter documented in this encounter Care Teams Cnc Milling Machinist Relationship Specialty Start Date End Date Morgan Panchal PA PCP - General 03/27/20 03/05/23 documented as of this encounter
--- OUTSIDE RECORDS SUMMARY | 2024-01-26 12:52 | XMS_ITS | Encounter Summary ---
Author Organization [facility] Address [address] [place] [address] Care Team Providers Care Weighing Station Operator Name Role Phone Morgan Panchal Primary Care Provider Encounter Details Date Type Department Care Team (Latest Contact Info) Description 07/08/2021 Transcribe Orders [facility]- [facility] [phone] Angelic Silva, TOOL ROOM GEAR MACHINE OPERATOR [address] [facility] [address] [place] [phone] Female stress incontinence (Primary Dx); Pedal edema; Obesity, unspecified obesity severity, unspecified obesity type; Non-ulcer dyspepsia; Fatigue, unspecified type; Acute intractable headache, unspecified headache type; Increased nasal secretion; Family history of diabetes mellitus Social History [...] Contact Info) Description 01/31/2024 10:15 EDT Telemedicine [facility] Neurology - [address] [place] [address] [place], [place] [address] Med Maldonado MD [address] [facility], Level [address] [place] [phone] 08/31/2024 9:40 EST Appointment Naz Perez [address] [phone] documented as of this encounter Visit Diagnoses Diagnosis Female stress incontinence- Primary Pedal edema Edema Obesity, unspecified obesity severity, unspecified obesity type Non-ulcer dyspepsia Dyspepsia and other specified disorders of function of stomach Fatigue, unspecified type Acute intractable headache, unspecified headache type Increased nasal secretion Other diseases of nasal cavity and sinuses Family history of diabetes mellitus documented in this encounter Care Teams Weighing Station Operator Relationship Specialty Start Date End Date Morgan Panchal PA PCP - General 03/27/20 03/05/23 documented as of this encounter
--- OUTSIDE RECORDS SUMMARY | 2024-01-26 12:52 | XMS_ITS | Encounter Summary ---
Author Organization [facility] Address [address] [place] [address] Care Team Providers Care Top Lift And Automatic Window Repairer Name Role Phone Morgan Panchal Primary Care Provider [phone] Reason for Visit * Reason Onset Date Comments Appointment Related 08/07/2020 Encounter Details Date Type Department Care Team (Late st Contact Info) Description 08/07/2020 Telephone [facility] Sports Medicine Program - [address] [place] [address] Blake Shearer MD [address] [place] [phone] Appointment Related Social History Tobacco Use [...] encounter Miscellaneous Notes * Telephone Encounter - Jaqueline Toribio - 08/07/2020 1426 EST Called patient to schedule next OV with Dr. Shearer for her left knee. documented in this encounter Plan of Treatment Upcoming Encounters Date Type Department Care Team (Late st Contact Info) Description 01/31/2024 10:15 EDT Telemedicine [facility] Neurology - [address] [id number] Med Maldonado MD [address] [place] [address], [address] [place] [phone] 08/31/2024 9:40 EST Appointment Naz Perez [address] [phone] documented as of this encounter Visit Diagnoses Not on filedocumented in this encounter Care Teams Top Lift And Automatic Window Repairer Relationship Specialty Start Date End Date Morgan Panchal PA PCP - General 03/27/20 03/05/23 documented as of this encounter
--- OUTSIDE RECORDS SUMMARY | 2024-01-26 12:52 | XMS_ITS | Encounter Summary ---
Author Organization [facility] Address [address] [place] [address] Care Team Providers Care X Ray Physician Name Role Phone Morgan Panchal Primary Care Provider [phone] Reason for Referral * Radiology Services (Routine) - Closed Specialty Diagnoses / Procedures Referred By Contac t Referred To Contact Diagnoses Chronic pain of both knees Procedures XR KNEE LEFT 4 OR MORE VIEWS Blake Shearer MD [address] [place] [address] Referral ID Status Reason Start Date Expiration Date Visits Re quested Visits Authorized [id number] Closed 12/28/2020 1 1 Reason for Visit * Radiology Services (Routine) - Closed Specialty Diagnoses / Procedures Referred By Contac t Referred To Contact Diagnoses Chronic pain of both knees Procedures XR KNEE LEFT 4 OR MORE VIEWS Blake Shearer MD [address] [place] [address] Referral ID Status Reason Start Date Expiration Date Visits Re quested Visits Authorized [id number] Closed 12/28/2020 1 1 Encounter Details Date Type Department Care Team (Latest Contact Info) Description 12/28/2020 8:38 EDT Hospital Encounter [facility] [address] [place] [address] Chronic pain of both knees Discharge Disposition: Home or Self Care Social [...] Tablets by mouth daily. 07/11/2023 glucosam/chond-msm1/C/m ang/bor ([id number]-AHG COMPLEX ORAL) Take by mouth. 10/18/2021 herbal [...] Description 01/31/2024 10:15 EDT Telemedicine [facility] Neurology - [address] [phone] Med Maldonado MD [address] [place] [address], Level [address] [place] [phone] 08/31/2024 9:40 EST Appointment Naz Perez [address] [address] documented as of this encounter Procedures Procedure Name Priority Date/Time Associated Diagnosis Comments XR KNEE LEFT 4 OR MORE VIEWS Routine 12/28/2020 8:59 EDT Chronic pain of both knees documented in this encounter Results * XR KNEE LEFT 4 OR MORE VIEWS (12/28/2020 8:59 EDT) Anatomical Region Laterality Modality Lower Extremities Left Computed Radio graphy 12/28/2020 10:0 8 EDT Addenda Addendum by Isak Wray MD on 01/11/2021 8:48 EDT Addendum: Right knee 4 views: Mild degenerative changes visualized in the patellofemoral and medial compartments. A minimal size suprapatellar knee joint effusion demonstrated. Developmental patellofemoral osseous dysplastic changes including a dominant lateral patellar facet and shallow femoral trochlear groove are noted as well. There are postsurgical changes presumably related to a prior tibial transfer procedure transfixed by a couple of surgical screws. There is a prominent circumscribed lucency surrounding the head of the proximal screw at the level of the anterior tibial tubercle, with minimal region of lucency surrounding the head of the distal screw. Please correlate clinically and with the patient's operative notes, if available. Also with horizontally oriented radiolucency with sclerotic margin in the upper aspect of the medial (not lateral) femoral condyle likely postoperative in nature, although this would need to be correlated with the surgical records. Impressions 12/28/2020 10:08 EDT FINDINGS / IMPRESSION: Left knee 4 views: Mild degenerative changes visualized in the patellofemoral and medial compartments. No sizable suprapatellar knee joint effusion demonstrated. Again seen are the previously described patellofemoral osseous dysplastic changes including a dominant lateral patellar facet and shallow femoral trochlear groove. Right knee 4 views: Mild degenerative changes visualized in the patellofemoral and medial compartments. A minimal size suprapatellar knee joint effusion demonstrated. Developmental patellofemoral osseous dysplastic changes including a dominant lateral patellar facet and shallow femoral trochlear groove are noted as well. There are postsurgical changes presumably related to a prior tibial transfer procedure transfixed by a couple of surgical screws. There is a prominent circumscribed lucency surrounding the head of the proximal screw at the level of the anterior tibial tubercle, with minimal region of lucency surrounding the head of the distal screw. Please correlate clinically and with the patient's operative notes, if available. Also with horizontally oriented radiolucency with sclerotic margin in the upper aspect of the lateral femoral condyle likely postoperative in nature, although this would need to be correlated with the surgical records. Bone length AP radiograph of the lower extremity redemonstrates the above- described findings. 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 An IUD projects over the pelvic region. Please see the orthopedic surgical notes for measurements. Narrative 12/28/2020 10:08 EDT EXAM/TECHNIQUE: XR KNEE LEFT 4 OR MORE VIEWS, XR BONE LENGTH STUDY, XR KNEE RIGHT 4 OR MORE VIEWS ??12/28/2020 8:40 AM HISTORY: ?? bilateral knee pain COMPARISON: Left knee radiographs on February 24, 2020. Procedure Note Isak Wray MD - 12/28/2020 EXAM/TECHNIQUE: XR KNEE LEFT 4 OR MORE VIEWS, XR BONE LENGTH STUDY, XR KNEE RIGHT 4 ORMORE VIEWS 12/28/2020 8:40 AM HISTORY: bilateral knee pain COMPARISON: Left knee radiographs on February 24, 2020. IMPRESSION FINDINGS / IMPRESSION: Left knee 4 views: Mild degenerative changes visualized in thepatellofemoral and medial compartments. No sizable suprapatellar kneejoint effusion demonstrated. Again seen are the previously describedpatellofemoral osseous dysplastic changes including a dominant lateralpatellar facet and shallow femoral trochlear groove. Right knee 4 views: Mild degenerative changes visualized in thepatellofemoral and medial compartments. A minimal size suprapatellar kneejoint effusion demonstrated. Developmental patellofemoral osseousdysplastic changes including a dominant lateral patellar facet and shallowfemoral trochlear groove are noted as well. There are postsurgical changespresumably related to a prior tibial transfer procedure transfixed by acouple of surgical screws. There is a prominent circumscribed lucencysurrounding the head of the proximal screw at the level of the anteriortibial tubercle, with minimal region of lucency surrounding the head ofthe distal screw. Please correlate clinically and with the patient'soperative notes, if available. Also with horizontally orientedradiolucency with sclerotic margin in the upper aspect of the lateralfemoral condyle likely postoperative in nature, although this would needto be correlated with the surgical records. Bone length AP radiograph of the lower extremity redemonstrates theabove- described findings. Also noted is coxa profunda at both hip jointswith superimposed mild degenerative changes. An IUD projects over thepelvic region. Please see the orthopedic surgical notes formeasurements. Blake Shearer MD IMG DIAGNOSTIC IMAGING ORDERABLES documented in this encounter Visit Diagnoses Diagnosis Chronic pain of both knees documented in this encounter Care Teams X Ray Physician Relationship Specialty Start Date End Date Morgan Panchal PA PCP - General 03/27/20 03/05/23 documented as of this encounter
--- OUTSIDE RECORDS SUMMARY | 2024-01-26 12:52 | XMS_ITS | Encounter Summary ---
Author Organization [facility] Address [address] [place] [address] Care Team Providers Care Rib Puller Name Role Phone Morgan Panchal Primary Care Provider [phone] Reason for Visit * Reason Comments Knee Pain LT KNEE MONOVISC * Medication Prior Authorization (Routine) - Order Cancelled Specialty Diagnoses / Procedures Referred By Tito hernandez Referred To Contact Orthopedic Surgery Diagnoses Patellofemoral arthritis of right knee Blake Shearer MD [address] [place] [phone] [facility] [address] [place] [address] [place] [address] Referral ID Status Reason Start Date Expiration Date Visits Requested Visits Authorized [id number] Order Cancelled Medication Prior Authorization 1 09/19/2020 1 1 Encounter Details Date Type Department Care Team (Latest Contact Info) Description 09/08/2020 14:45 EST Office Visit [facility] Sports Medicine Program - [facility] [place] [address] Blake Shearer MD [address] [place] [phone] Patellofemoral arthritis of right knee (Primary Dx); Patellar instability of both knees Social History Tobacco Use Types Packs/Day Years [...] as of this encounter Progress Notes * Blake Shearer MD - 09/08/2020 1445 ESTAssociated Order(s): Large Joint Injection/Arthrocentesis: R knee Post-Procedure Diagnose(s): Patellofemoral arthritis of right knee Problem: Right knee pain and patellar instability. Right tibial tubercle osteotomy and MPFL reconstruction 2015 ([facility]) Subjective: Yolette comes in today for bilateral knee hyaluronic acid injections. Objective: No signs of active infection on either knee. Under sterile conditions through an anterolateral approach bilateral Monovisc injections were performed with no immediate complications. Assessment and plan: Bilateral knee pain, right patella instability. Await results of injection. Follow-up 4 to 6 weeks. Procedure: Large Joint Injection/Arthrocentesis: R knee on 09/08/2020 14:45 Indications: pain Details: 20 G needle, anterolateral approach Medications: 88 mg hyaluronate sodium, stabilized 88 mg/4 mL documented in this encounter Plan of Treatment Upcoming Encounters Date Type Department Care Team (Late st Contact Info) Description 01/31/2024 10:[address] [facility] Neurology - [address] [place] [address] [place], [place] [address] Med Maldonado MD [address] [place] [address], Level 2 [place] [phone] 08/31/2024 9:40 EST Appointment Naz Perez [address] [phone] documented as of this encounter Procedures Procedure Name Priority Date/Time Associated Diagnosis Comments LARGE JOINT INJECTION/ARTHROCEN TESIS Routine 09/08/2020 14:45 EST Patellofemoral arthritis of right knee documented in this encounter Results * MI ARTHROCENTESIS ASPIR&/INJ MAJOR JT/BURSA W/O US (09/08/2020 14:45 EST) Narrative [facility] - 09/08/2020 14:45 EST Blake Shearer MD ? 12/09/2020 ??9:19 Large Joint Injection/Arthrocentesis: R knee on 09/08/2020 14:45 Indications: pain Details: 20 G needle, anterolateral approach Medications: 88 mg hyaluronate sodium, stabilized 88 mg/4 mL Blake Shearer MD PROCEDURE/MINOR SURGICAL ORDERABLES [facility]INT [facility] documented in this encounter Visit Diagnoses Diagnosis Patellofemoral arthritis of right knee- Primary Patellar instability of both knees Other specified disorders of lower leg joint documented in this encounter Administered Medications Inactive Administered Medications - up to 3 most recent administrations Medication Order MAR Action Action Date Dose Rate Site hyaluronate sodium, stabilized (MONOVISC) syringe 88 mg 88 mg, intra-articular, Once PRN Procedure, 1 dose, Starting on Mon09/08/20 at 1445, Until Mon09/08/20 at 1445, Routine Given 09/08/2020 14:45 EST 88 mg documented in this encounter Historical Medications * This list may reflect changes made after this encounter. Medication Sig Dispensed Refills Start Date End Date SUMAtriptan (IMITREX) 50 mg tablet Take 1 Tablet by mouth as needed for Migraine. 10/17/2023 meclizine (ANTIVERT) 25 mg tablet Take 1 Tablet by mouth as needed. 10/17/2023 added in this encounter Care Teams Rib Puller Relationship Specialty Start Date End Date Morgan Panchal PA PCP - General 03/27/20 03/05/23 documented as of this encounter
--- OUTSIDE RECORDS SUMMARY | 2024-01-26 12:52 | XMS_ITS | Encounter Summary ---
Author Organization [facility] Address [address] [place] [address] Care Team Providers Care Commodity Broker Name Role Phone Morgan Panchal Primary Care Provider [phone] Encounter Details Date Type Department Care Team (Latest Contact Info) Description 08/21/2020 9:15 EST - 08/21/2020 23:59 EST Hospital Encounter [address] [facility] [address] [place], [place] [id number] Discharge Disposition: Home or Self Care Social [...] Tablets by mouth daily. 07/11/2023 glucosam/chond-msm1/C/m ang/bor ([id number] COMPLEX ORAL) Take by mouth. 10/18/2021 herbal [...] Description 01/31/2024 10:15 EDT Telemedicine [facility] Neurology - [address] [address] Med Maldonado MD [address] [place] [address], Level 2 [place] [phone] 08/31/2024 9:40 EST Appointment Naz Perez [address] [phone] documented as of this encounter Procedures Procedure Name Priority Date/Time Associated Diagnosis Comments XR CALCANEOUS RIGHT Routine 08/21/2020 9 :48 EST Pain of right heel documented in this encounter Results * XR CALCANEOUS RIGHT (08/21/2020 9:48 EST) Anatomical Region Laterality Modality Lower Extremities Left Computed Radio graphy 08/24/2020 12:5 3 EST Impressions 08/24/2020 12:53 EST FINDINGS / IMPRESSION: Lateral and axial weight-bearing views of the right heel (calcaneus) show no evidence of fracture or malalignment. No discrete degenerative changes either. There is a small spur-like enthesophyte in the plantar aspect of the calcaneus intimate with the origin of the plantar fascia. Mineralization is age appropriate. Soft tissues are grossly unremarkable. Narrative 08/24/2020 12:53 EST EXAM/TECHNIQUE: XR CALCANEOUS RIGHT ??08/21/2020 9:15 AM HISTORY: ?? Severe heel pain. COMPARISON: None. Procedure Note Otoniel Ramey MD - 08/24/2020 EXAM/TECHNIQUE: XR CALCANEOUS RIGHT 08/21/2020 9:15 AM HISTORY: Severe heel pain. COMPARISON: None. IMPRESSION FINDINGS / IMPRESSION: Lateral and axial weight-bearing views of the right heel (calcaneus) showno evidence of fracture or malalignment. No discrete degenerative changeseither. There is a small spur-like enthesophyte in the plantar aspect ofthe calcaneus intimate with the origin of the plantar fascia.Mineralization is age appropriate. Soft tissues are grosslyunremarkable. Kendra Bradford PATIENT EXPERIENCE COORDINATOR IMG DIAGNOST IC IMAGING ORDERABLES documented in this encounter Visit Diagnoses Not on filedocumented in this encounter Care Teams Commodity Broker Relationship Specialty Start Date End Date Morgan Panchal PA PCP - General 03/27/20 03/05/23 documented as of this encounter
--- OUTSIDE RECORDS SUMMARY | 2024-01-26 12:52 | XMS_ITS | Encounter Summary ---
Author Organization [facility] Address [address] [place] [address] Care Team Providers Care Vessel Manager Name Role Phone Morgan Panchal Primary Care Provider [phone] Angelic Silva APRN Primary Care Provider [phone] Encounter Details Date Type Department Care Team (Late st Contact Info) Description 04/09/2021 Lab Requisition [facility] Pathology & Laboratory Medicine - [facility] [address] [place] [address] Linda Carter MD [address] [place] [id number] Dysuria Social History Tobacco Use Types Packs/Day Years [...] Description 01/31/2024 10:15 EDT Telemedicine [facility] Neurology - [address] [place] [address] [place], [place] [phone] Med Maldonado MD [address] [place] [address], Level [address] [place] [address] 08/31/2024 9:40 EST Appointment Naz Perez [address] [phone] documented as of this encounter Procedures Procedure Name Priority Date/Time Associated Diagnosis Comments BACTERIAL CULTURE, URINE Routine 04/09/2021 16:33 EDT Dysuria documented in this encounter Results * (ABNORMAL) BACTERIAL CULTURE, URINE (04/09/2021 16:33 EDT) Organism ID [id number] to 100,000 CFU/ml Escherichia coli(A) VITEK SUSCEPTIBILITY 04/11/2021 7:53 EDT [facility] Comment: Cefazolin susceptibility results can be used to predict susceptibility results for the following oral cephalosporins when used for therapy of uncomplicated UTIs due to E.coli, K.pneumoniae, and P.mirabilis: cefaclor, cefdinir, cefpodoxime, cefprozil, cefuroxime, cephalexin, loracarbef. Cefdinir, cefpodoxime, and cefuroxime may be tested individually because some isolates may be susceptibile to these agents while testing resistance to cefazolin. Please note that only cefpodoxime and cephalexin are on the [facility] inpatient formulary. Urine URINE SPECIMEN COLLECTION, CLEAN CATCH / Unknown Urine Collect / Unknown 04/09/2021 16:33 EDT 04/09/2021 20:48 EDT Narrative Organism Antibiotic Method Susceptibility Escherichia coli Ampicillin VITEK SUSCEPTIBILITY <=2 ug/mL: Susceptible Escherichia coli Cefazolin VITEK SUSCEPTIBILITY <=4 ug/mL: Susceptible Escherichia coli Ceftriaxone VITEK SUSCEPTIBILITY <=1 ug/mL: Susceptible Escherichia coli Ciprofloxacin VITEK SUSCEPTIBILITY <=0.25 ug/mL: Susceptible Escherichia coli Ertapenem VITEK SUSCEPTIBILITY <=0.5 ug/mL: Susceptible Escherichia coli Meropenem VITEK SUSCEPTIBILITY <=0.25 ug/mL: Susceptible Escherichia coli Nitrofurantoin VITEK SUSCEPTIBILITY <=16 ug/mL: Susceptible Escherichia coli Piperacillin Tazobactam VITEK SUSCEPT IBILITY <=4 ug/mL: Susceptible Escherichia coli Trimethoprim-Sulfame thox azole VITEK SUSCEPTIBILITY <=20 ug/mL: Susceptible Linda Carter MD MICROBIOLOGY - GENE RAL ORDERABLES Performing Organization Address City/State/[facility] Co de Phone Number [facility] [address] [place] [address] documented in this encounter Visit Diagnoses Diagnosis Dysuria documented in this encounter Care Teams Vessel Manager Relationship Specialty Start Date End Date Morgan Panchal PA PCP - General 03/27/20 03/05/23 Angelic Silva APRN [address] [address] PCP - General 03/06/23 documented as of this encounter
--- OUTSIDE RECORDS SUMMARY | 2024-01-26 12:52 | XMS_ITS | Encounter Summary ---
Author Organization [facility] Address [address] [place] [address] Care Team Providers Care Server Engineer Name Role Phone Morgan Panchal Primary Care Provider [phone] Reason for Visit * Reason Comments Follow-up Encounter Details Date Type Department Care Team (Late st Contact Info) Description 04/21/2020 8:00 EDT Office Visit [facility] Program - [address] [place] [address] Walter Ferrer MD [address] [place] [phone] Patellar instability of left knee (Primary Dx); Patellar instability of right knee; Dislocation of left patella, subsequent encounter Social History Tobacco Use Types Packs/Day Years [...] 19:47 EDT documented as of this encounter Last Filed Vital Signs Vital Sign Reading Time Taken Comments Blood Pressure - - Pulse - - Temperature - - Respiratory Rate - - Oxygen Saturation - - Inhaled Oxygen Concentration - - Weight 86.2 kg (190 lb) 04/21/2020 0803 EDT per pt Height 172.7 cm (5' 8) 04/21/2020 0803 EDT Body Mass Index 28.89 04/21/2020 0803 EDT documented in this encounter Functional Status [...] as of this encounter Progress Notes * Walter Ferrer MD - 04/21/2020 0800 EDT Chief Complaint Patient presents with ??? Left Knee - Follow-up SUBJECTIVE: Yolette Tellez is a 39 y.o. female who presents to the office to follow up for her left knee MRI.She has been going to [facility]. Also doing some aquatics. She likes the brace we ordered for her at the last visit. Would like one for the right knee. She continues to be limited however. Very frequent bilateral patellar instability episodes. She initially presented several weeks ago with a 3 day history of sudden onset left knee pain. She sustained a left patellar dislocation on 02/24/2020. She has had a long history of bilateral patellarinstability. Multiple events in both knees since she was very young. She was getting into an inner tube and the left patella came out and she was able to get it back inafter about 30 seconds. She had more pain than usual and it swelled. Typically she has been able toget the patella back in after only a second or two. This time was worse. She went to the ER and got a knee immobilizer and crutches. She has a history of right patellar instability with surgical stabilization in 2014. Medial patellofemoral ligament reconstruction by Dr. Hayes in [place], [place]. This didn't work. She still has right patellar instability and the right knee is still worse than left. She has used several different braces and has been to PT at several places that helped a little. Past medical, past surgical, medications, allergies, social history and 12 system ROS were all documented on the intake form. These were reviewed and there are no changes. OBJECTIVE: Ht 68 inches; wt 188 lbs General: awake, alert, NAD, pleasant EENT: extraocular motion grossly intact Pulmonary: normal respirations, non-labored breathing Psych: normal affect, thoughts are logical and sequential Exam of left knee. 2+ effusion, no ecchymosis, no erythema, minimal atrophy of VMO, genu valgus alignment On palpation, no joint line tenderness, mild medial and lateral patellar facet tenderness, no tenderness over pes anserine bursa ROM is limited from 0 degrees to 100 degrees, 2 quadrants of medial translation and 3 quadrants of lateral translation of the patella, no patellofemoral crepitus Ligament exam reveals stable Horace, anterior drawer and posterior drawer and there is no increased medial or lateral joint space opening on varus and valgus stress at full extension and 30 degrees flexion. Mcmurrays test not possible due to inability to flex Distal neurovascular exam intact. DIAGNOSTIC DATA: MRI of the left knee dated 04/15/2020 reveals evidence of prior patellar instability event with partial to near complete tearing of the MPFL. She has a predominant lateral patellar facet with dysplastic trochlear groove. The articular cartilage of the patella is mostly preserved with fissuring. No ACL, PCL, MCL, LCL or meniscus tears. Plain films taken previously in the ER and independently reviewed by me including standing AP, oblique, lateral and merchant views of the left knee reveals joint spaces well maintained. The trochleargroove is shallow. ASSESSMENT: Recurrent left patellar instability with recent patellar dislocation. DOI 02/24/2020. MRI findings of an MPFL tear and shallow trochlear groove. Right patellar instability, recurrent. She is s/p MPFL reconstruction with tibial tubercle transposition that does not appear to have worked. She has done PT and bracing in the past. PLAN: Patients diagnosis, plain films and treatment plan were reviewed at length. She will continue formal PT to work on stretching quads, hamstrings, anterior hip and gastroc as well as strengthening VMO, hip abductors and hip external rotators. A specific protocol was given. Oneor two visits per week for 6 - 8 weeks. We will get another knee brace for the right knee. She will be referred to Dr. Doron Shearer to discuss MPFL reconstruction, tibial tubercle transfer and possible trochleoplasty. The patient verbalized understanding of the above and agreed with this plan. All of her questions were answered to her satisfaction today. 25 minutes of face to face time was spent with the patient, 15 minutes were spent on counseling andcoordination of care of the patient's left knee pain. Walter Ferrer M.D. 04/21/2020 8:14 Cc: Morgan Panchal MD documented in this encounter Plan of Treatment Upcoming Encounters Date Type Department Care Team (Late st Contact Info) Description 01/31/2024 10:15 EDT Telemedicine [facility] Neu[facility] - S [place] [address] [place] [phone] Med Maldonado MD [address] [place] [address], Level [address] [place] [phone] 08/31/2024 9:40 EST Appointment Naz Perez [address] [id number] documented as of this encounter Visit Diagnoses Diagnosis Patellar instability of left knee- Primary Other joint derangement, not elsewhere classified, lower leg Patellar instability of right knee Other joint derangement, not elsewhere classified, lower leg Dislocation of left patella, subsequent encounter documented in this encounter Orders Equipment Count Last Ordered Date First Orde red Date PATELLA FEMORAL BRACE WITH HINGE (L1810) 1 04/21/2020 documented in this encounter Care Teams Server Engineer Relationship Specialty Start Date End Date Morgan Panchal PA PCP - General 03/27/20 03/05/23 documented as of this encounter
--- OUTSIDE RECORDS SUMMARY | 2024-01-26 12:52 | XMS_ITS | Encounter Summary ---
Author Organization [facility] Address [address] [place] [address] Care Team Providers Care Office Support Associate Name Role Phone Morgan Panchal Primary Care Provider [phone] Reason for Visit * Reason Onset Date Comments COVID-19 04/25/2020 Encounter Details Date Type Department Care Team (Late st Contact Info) Description 04/25/2020 Telephone [facility] - [employer] [address] [place] [address] Transcribe, Doctor, COVID-19 Social History Tobacco Use Types Packs/Day [...] encounter Miscellaneous Notes * Telephone Encounter - Shellie Anderson - 04/30/2020 1011 EDT Called patient to schedule COVID-19 testing. Requested a call back @[phone]. This is our X2 attempt at contacting patient on the new number * Telephone Encounter - Marilynn Avila - 04/29/2020 1040 EDT Left message to call back to schedule. Phone number on scan was different than number in chart. This is our 1st attempt contacting patient with number in scan. * Telephone Encounter - Fannie Avila - 04/28/2020 1134 EDT Left message for patient to schedule COVID test and left callback number.This is our third attempt. * Telephone Encounter - Phu Ricardo - 04/27/2020 1027 EDT Left message for patient to contact covid scheduling at [phone]. This is our 2nd attempt at contacting patient. * Telephone Encounter - Elza Mcdonald - 04/25/2020 0951 EDT Environmental Advisor left first voicemail with patient to schedule COVID-19 test. documented in this encounter Plan of Treatment Upcoming Encounters Date Type Department Care Team (Late st Contact Info) Description 01/31/2024 10:15 EDT Telemedicine [facility] Neurology - [address] [place] [address] [place] [address] Med Maldonado MD 1 [facility], Level 2 [place] [phone] 08/31/2024 9:40 EST Appointment Naz Perez [address] [phone] documented as of this encounter Visit Diagnoses Not on filedocumented in this encounter Care Teams Office Support Associate Relationship Specialty Start Date End Date Morgan Panchal PA PCP - General 03/27/20 03/05/23 documented as of this encounter
--- OUTSIDE RECORDS SUMMARY | 2024-01-26 12:52 | XMS_ITS | Encounter Summary ---
Author Organization [facility] Address [address] [place] [address] Care Team Providers Care Cub Reporter Name Role Phone Morgan Panchal Primary Care Provider [phone] Reason for Visit * Reason Comments Knee Pain Encounter Details Date Type Department Care Team (Late st Contact Info) Description 03/16/2021 10:30 EDT Office Visit [facility] Sports Medicine Program - [address] [address] Blake Shearer MD [address] [place] [phone] Chronic pain of both knees (Primary Dx); Patellar instability of both knees; Patellofemoral arthritis of left knee; Patellofemoral arthritis of right knee Social History Tobacco Use Types Packs/Day Years [...] Progress Notes * Blake Shearer MD - 03/16/2021 1030 EDT Problem: Bilateral anterior knee pain and patellar instability. 1. Right tibial tubercle osteotomy and MPFL reconstruction 2015 ([facility]) Subjective: Yolette returns for follow-up. She has undergone new imaging studies of her right and left knees. She continues to complain of both pain and instability in both knees. Objective: On the right she had a positive apprehension test. MRI right knee 01/08/[address] scan right knee 02/24/2021 demonstrates a TT TG difference of [address] scan left knee demonstrates a TT TG difference of 21 mm. Assessment and plan: Yolette has somewhat of a complex problem. She has chronic, bilateral patellofemoral pain and instability. 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 She definitely also has an instability component. On the right she has undergone a stabilization procedure and is still having instability. The MPFL graft appeared intact on MRI. The femoral attachment site appeared to be in good position. Her TT TG distance appears to have been corrected although I do not know what it was before surgery but presumably it was similar to the left at 21 mm. In terms of pain I think she could be a candidate for a cartilage repair or methodist procedure. I amless confident how to treat her instability, particularly on the right as she has undergone surgerywhich appears to have been well done. Before proceeding with another surgery I recommend she obtaina second opinion and gave her the names of some of my colleagues at the cartilage repair center in [place] and at [facility] in [place]. She is welcome to follow-up at any time after that. documented in this encounter Plan of Treatment Upcoming Encounters Date Type Department Care Team (Late st Contact Info) Description 01/31/2024 10:15 EDT Telemedicine [facility] Neurology - [address] [place] [address] [place], [place] [address] Med Maldonado MD 1 [facility], Level 2 [place] [phone] 08/31/2024 9:40 EST Appointment Naz Perez [address] [phone] documented as of this encounter Visit Diagnoses Diagnosis Chronic pain of both knees- Primary Patellar instability of both knees Other specified disorders of lower leg joint Patellofemoral arthritis of left knee Unspecified arthropathy, lower leg Patellofemoral arthritis of right knee documented in this encounter Care Teams Cub Reporter Relationship Specialty Start Date End Date Morgan Panchal PA PCP - General 03/27/20 03/05/23 documented as of this encounter
--- OUTSIDE RECORDS SUMMARY | 2024-01-26 12:52 | XMS_ITS | Encounter Summary ---
Author Organization [facility] Address [address] [place] [address] Care Team Providers Care Campus President Name Role Phone Morgan Panchal Primary Care Provider [phone] Angelic Silva APRN Primary Care Provider [phone] Encounter Details Date Type Department Care Team (Late st Contact Info) Description 12/04/2020 Lab Requisition [facility] Pathology & Laboratory Medicine - [facility] [address] [place], [place] [phone] Lala Bettencourt MD [address] [place] [phone] Encounter for other general examination Social History Tobacco Use Types Packs/Day Years [...] Contact Info) Description 01/31/2024 10:15 EDT Telemedicine [facility] Neurology - [address] [place] [address] [place], [place] [phone] Med Maldonado MD [address] [place] [address], Level 2 [place] [address] 08/31/2024 9:40 EST Appointment Naz Perez [address] [place] [address] documented as of this encounter Procedures Procedure Name Priority Date/Time Associated Diagnosis Comments SURGICAL PATHOLOGY Today 12/03/2020 14 :44 EDT Encounter for other general examination documented in this encounter Results * SURGICAL PATHOLOGY (12/03/2020 14:44 EDT) Final Diagnosis A. CERVIX, LOOP ELECTROSURGICAL EXCISIONAL PROCEDURE: - Portion of benign cervix with squamous metaplasia, acute inflammation, and reactive epithelial changes. - See Comment. 12/10/2020 11:15 T [facility] Diagnosis Comment PAS-amylase stains performed on Blocks A5 and A6 to evaluate all areas of acute inflammation are negative for fungi. Deeper sections have been examined. The findings are negative for intraepithelial lesion and malignancy. 12/10/2020 11:15 EDT [facility] Attestation There was significant resident/fellow involvement in the diagnostic evaluation of this case. By the signature below, the attending physician certifies that they have personally conducted a gross and/or microscopic examination of the described specimens and rendered or confirmed the above diagnosis. 12/10/2020 11:15 EDT [facility] at 1115 Clinical History CESAR II; LMP: 11/05/2020 12/10/2020 11:15 EDT [facility] Gross Description A. Received in formalin labelled with proper patient identification (initials C, E) and LEEP is an unoriented a circular cervical tissue with cauterized margins (2.0 x 1.8 cm, excised to a depth of 0.5 cm), with an eccentric 0.4 cm slit like os. The ectocervical mucosa is furrowed in au-pink. The ectocervical margins are inked blue and the endocervical margins are inked black. The specimen is radially sectioned in a clockwise fashion and entirely submitted as consecutive sections as A1- A6. Trista Cisneros MD 12/04/2020 14:53 12/10/2020 11:15 EDT [facility] Resident/Desmond w: Trista Cisneros MD 12/10/2020 11:15 EDT [facility] Performing Lab [facility] 11:15 EDT [facility] Scanned Images 12/10/2020 11:15 EDT [facility] Tissue ENTIRE WALL OF CERVIX / Unknown 12/03/2020 14:44 EDT 12/04/2020 9:00 EDT Lala Bettencourt MD PATHOLOGY ORDERABL ES [facility] [address] [place] [address] documented in this encounter Visit Diagnoses Diagnosis Encounter for other general examination documented in this encounter Care Teams Campus President Relationship Specialty Start Date End Date Morgan Panchal PA PCP - General 03/27/20 03/05/23 Angelic Silva APRN 26 [facility] [address] [place] [address] PCP - General 03/06/23 documented as of this encounter
--- OUTSIDE RECORDS SUMMARY | 2024-01-26 12:52 | XMS_ITS | Encounter Summary ---
Author Hub Preferred Language EN Marital Status Legally Sabianism Affiliation Unknown Race White Ethnic Group Not or Lati no Author Organization [facility] Address [address] [place] [address] Care Team Providers Care Stone Spreader Operator Name Role Phone Morgan Panchal Primary Care Provider [phone] Encounter Details Date Type Department Care Team (Late st Contact Info) Description 08/12/2020 Orders Only [facility] Sports Medicine Program - [address] [address] Blake Shearer MD [address] [place] [address] Patellofemoral arthritis of left knee (Primary Dx) Social History Tobacco Use Types [...] Contact Info) Description 01/31/2024 10:15 EDT Telemedicine [facility] Neurology - [address] [phone] Med Maldonado MD [address] [place] [address], Level [address] [place] [address] 08/31/2024 9:40 EST Appointment Naz Perez [address] [phone] documented as of this encounter Visit Diagnoses Diagnosis Patellofemoral arthritis of left knee- Primary Unspecified arthropathy, lower leg documented in this encounter Care Teams Stone Spreader Operator Relationship Specialty Start Date End Date Morgan Panchal PA PCP - General 03/27/20 03/05/23 documented as of this encounter
--- OUTSIDE RECORDS SUMMARY | 2024-01-26 12:52 | XMS_ITS | Encounter Summary ---
Author Organization [facility] Address [address] [place] [address] Care Team Providers Care Electronic Typesetting Machine Operator Name Role Phone Morgan Panchal Primary Care Provider [phone] Reason for Referral * Radiology Services (Routine) - Closed Specialty Diagnoses / Procedures Referred By Contac t Referred To Contact Diagnoses Chronic pain of both knees Patellar instability of both knees Patellofemoral arthritis of left knee Procedures CT KNEE LEFT WO CONTRAST Blake Shearer MD [address] [place] [phone] Referral ID Status Reason Start Date Expiration Date Visits Re quested Visits Authorized [id number] Closed 12/28/2020 1 1 * Radiology Services (Routine) - Closed Specialty Diagnoses / Procedures Referred By Contac t Referred To Contact Diagnoses Chronic pain of both knees Patellar instability of both knees Patellofemoral arthritis of right knee Procedures CT KNEE RIGHT WO CONTRAST Blake Shearer MD [address] [place] [address] Referral ID Status Reason Start Date Expiration Date Visits Re quested Visits Authorized [id number] Closed 12/28/2020 1 1 * Radiology Services (Routine) - Closed Specialty Diagnoses / Procedures Referred By Tito hernandez Referred To Contact Radiology Diagnoses Chronic pain of both knees Patellar instability of both knees Patellofemoral arthritis of right knee Procedures MR KNEE WO CONTRAST RIGHT Blake Shearer MD [address] [place] [phone] Referral ID Status Reason Start Date Expiration Date Visits Re quested Visits Authorized [id number] Closed 12/28/2020 06/25/2021 1 1 * Radiology Services (Routine) - Closed Specialty Diagnoses / Procedures Referred By Tito t Referred To Contact Diagnoses Chronic pain of both knees Procedures XR KNEE RIGHT 4 OR MORE VIEWS Blake Shearer MD [address] [place] [phone] Referral ID Status Reason Start Date Expiration Date Visits Re quested Visits Authorized [id number] Closed 12/28/2020 1 1 * Radiology Services (Routine) - Closed Specialty Diagnoses / Procedures Referred By Tito hernandez Referred To Contact Diagnoses Chronic pain of both knees Procedures XR KNEE LEFT 4 OR MORE VIEWS Blake Shearer MD [address] [place] [phone] Referral ID Status Reason Start Date Expiration Date Visits Re quested Visits Authorized [id number] Closed 12/28/2020 1 1 Reason for Visit * Reason Comments Knee Pain BILAT KNEE Encounter Details Date Type Department Care Team (Late st Contact Info) Description 12/28/2020 8:00 EDT Office Visit [facility] Sports Medicine Program - [address] [address] Blake Shearer MD [address] [place] [phone] Chronic pain of both knees (Primary [...] Progress Notes * Blake Shearer MD - 12/28/2020 0800 EDT Problem: Bilateral anterior knee pain and patellar instability. 1. Right tibial tubercle osteotomy and MPFL reconstruction 2014 ([facility]) Subjective: Yolette returns for follow-up. She underwent bilateral knee hyaluronic acid injections on09/08/2020. She states that she only obtained very short-term pain relief from these injections. She continues to complain of bilateral knee pain and instability. The pain and instability are equally problematic. The pain is independent of the instability. She has tried corticosteroid injections in the past. She has tried physical therapy. She uses braces. 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 She also has a small fiber neuropathy which causes neuropathic changes in her bilateral lower extremities. Objective: No effusion in either knee. No passive range of motion deficits. Bilateral patellofemoral crepitus. Bilateral positive apprehension test. She did not have a prominent J sign on either side. She has only undergone previous x-rays of the left knee and MRI left knee demonstrating degenerative articular cartilage changes in the patellofemoral compartment. Assessment and plan: Yoltete has ongoing, chronic problems in both knees. Specifically she has components of pain and instability. On the right she has undergone a stabilization surgery which was not beneficial. Her quality of life is diminished because of her knee problems. She is failing nonsurgical treatment. I do not think she has been completely worked up at this point. She will undergo new x-rays of bothknees including lower extremity alignment x-rays. She will undergo MRI of the right knee mainly to assess her articular cartilage in the patellofemoral compartment. She will also undergo CT scan of bilateral knees to assess trochlear morphology and TT TG difference. I will follow up with her by phone after the studies have been performed. documented in this encounter Plan of Treatment Upcoming Encounters Date Type Department Care Team (Late st Contact Info) Description 01/31/2024 10:15 EDT Telemedicine [facility] Neurology - [address] [address] Med Maldonado MD [address] [place] [address], [address] [place] [phone] 08/31/2024 9:40 EST Appointment Naz Perez [id number] [place], [place] [phone] documented as of this encounter Results * CT KNEE LEFT WO CONTRAST (02/24/2021 15:28 EDT) Anatomical Region Laterality Modality Lower Extremities Left Computed Tomog nestor 03/01/2021 9:43 EDT Impressions 03/01/2021 9:43 EDT Findings/Impression: At 0 degrees, the patellar tilt is 35 degrees At 30 degrees, the patellar tilt is 38 degrees At 60 degrees, the patellar tilt is 24 degrees The tibial tuberosity to trochlear groove (TT-TG) distance is approx. 21 mm Patellofemoral dysplastic features: Dominant lateral patellart facet and small steeply sloped medial patellar facet. ??Shallow trochlear groove. Chronic avulsion fracture along the facet. Medial patellofemoral retinaculum/ligament is not well assessed. Bones: Normal mineralization. Soft tissues: Limited assessment tendons and internal structures. Narrative 03/01/2021 9:43 EDT Exam/Technique: Limited slices through the patellofemoral joint at 0, 30, and 60 degrees of flexion. Sagittal and coronal reformations were also obtained. Axial slices through the entire knee were also obtained. In addition, a combined image for estimation of the tibial tuberosity to trochlear groove (TTTG) generated in an independent workstation. No 3-D images were generated. CT KNEE LEFT WO CONTRAST ??02/24/2021 3:15 PM Signs and Symptoms/Comments: ?? bilateral knee pain Comparison: 10.7.20 Procedure Note Neo Seo MD - 03/01/2021 Exam/Technique: Limited slices through the patellofemoral joint at 0, 30, and 60 degreesof flexion. Sagittal and coronal reformations were also obtained. Axialslices through the entire knee were also obtained. In addition, a combinedimage for estimation of the tibial tuberosity to trochlear groove (TTTG)generated in an independent workstation. No 3-D images were generated. CT KNEE LEFT WO CONTRAST 02/24/2021 3:15 PM Signs and Symptoms/Comments: bilateral knee pain Comparison: 10.7.20 IMPRESSION Findings/Impression: At 0 degrees, the patellar tilt is 35 degrees At 30 degrees, the patellar tilt is 38 degrees At 60 degrees, the patellar tilt is 24 degrees The tibial tuberosity to trochlear groove (TT-TG) distance is approx. 21mm Patellofemoral dysplastic features: Dominant lateral patellart facet andsmall steeply sloped medial patellar facet. Shallow trochlear groove.Chronic avulsion fracture along the facet. Medial patellofemoralretinaculum/ligament is not well assessed. Bones: Normal mineralization. Soft tissues: Limited assessment tendons and internal structures. Blake Shearer MD IMG CT ORDERABL ES * CT KNEE RIGHT WO CONTRAST (02/24/2021 15:28 EDT) Anatomical Region Laterality Modality Lower Extremities Right Computed Tomog nestor 02/25/2021 19:2 3 EDT Impressions 02/25/2021 19:23 EDT Findings/Impression: At 0 degrees, the patellar tilt is 25 degrees At 30 degrees, the patellar tilt is 16 degrees At 60 degrees, the patellar tilt is 10 degrees The tibial tuberosity to trochlear groove (TT-TG) distance is approx. 15 mm Patellofemoral dysplastic features: Postsurgical changes from prior medial and tibial tuberosity osteotomy as well as stabilization/augmentation of the medial patellofemoral supporting soft tissue Bones: Surgical changes as described above. Soft tissues: Normal muscle volume. Limited assessment of the intra-articular soft tissues. Narrative 02/25/2021 19:23 EDT Exam/Technique: Limited slices through the patellofemoral joint at 0, 30, and 60 degrees of flexion. Sagittal and coronal reformations were also obtained. Axial slices through the entire knee were also obtained. In addition, a combined image for estimation of the tibial tuberosity to trochlear groove (TTTG) generated in an independent workstation. No 3-D images were generated. CT KNEE RIGHT WO CONTRAST ??02/24/2021 3:15 PM Signs and Symptoms/Comments: ?? bilateral knee pain Comparison: Right knee MRI from 01/08/2021 Procedure Note Neo Seo MD - 02/25/2021 Exam/Technique: Limited slices through the patellofemoral joint at 0, 30, and 60 degreesof flexion. Sagittal and coronal reformations were also obtained. Axialslices through the entire knee were also obtained. In addition, a combinedimage for estimation of the tibial tuberosity to trochlear groove (TTTG)generated in an independent workstation. No 3-D images were generated. CT KNEE RIGHT WO CONTRAST 02/24/2021 3:15 PM Signs and Symptoms/Comments: bilateral knee pain Comparison: Right knee MRI from 01/08/2021 IMPRESSION Findings/Impression: At 0 degrees, the patellar tilt is 25 degrees At 30 degrees, the patellar tilt is 16 degrees At 60 degrees, the patellar tilt is 10 degrees The tibial tuberosity to trochlear groove (TT-TG) distance is approx. 15mm Patellofemoral dysplastic features: Postsurgical changes from prior medialand tibial tuberosity osteotomy as well as stabilization/augmentation ofthe medial patellofemoral supporting soft tissue Bones: Surgical changes as described above. Soft tissues: Normal muscle volume. Limited assessment of theintra-articular soft tissues. Blake Shearer MD IMG CT ORDERABL ES * MR KNEE WO CONTRAST RIGHT (01/08/2021 [...] andagree with the findings. Blake Shearer MD IMG MRI ORDERAB LES * XR KNEE LEFT 4 OR MORE [...] Blake Shearer MD IMG DIAGNOSTIC IMAGING ORDERABLES * XR KNEE RIGHT 4 OR MORE VIEWS (12/28/2020 8:58 EDT) Anatomical Region Laterality Modality Lower Extremities Right Computed Radio graphy 12/28/2020 10:0 8 EDT [...] Blake Shearer MD IMG DIAGNOSTIC IMAGING ORDERABLES * XR BONE LENGTH STUDY (12/28/2020 8:57 EDT) Anatomical Region Laterality Modality Lower Extremities Computed Radio graphy 12/28/2020 10:0 8 EDT [...] lower leg Patellofemoral arthritis of right knee Chronic pain of both knees Chronic pain of both knees Chronic pain of both knees Chronic pain of both knees Patellar instability of both knees Other specified disorders of lower leg joint Patellofemoral arthritis of right knee Chronic pain of both knees Patellar instability of both knees Other specified disorders of lower leg joint Patellofemoral arthritis of right knee documented in this encounter Care Teams Electronic Typesetting Machine Operator Relationship Specialty Start Date End Date Morgan Panchal PA PCP - General 03/27/20 03/05/23 documented as of this encounter
--- OUTSIDE RECORDS SUMMARY | 2024-01-26 12:52 | XMS_ITS | Encounter Summary ---
Author Organization [facility] Address [address] [place] [address] Care Team Providers Care Child Welfare Worker Name Role Phone Morgan Panchal Primary Care Provider [phone] Reason for Referral * Radiology Services (Routine) - Closed Specialty Diagnoses / Procedures Referred By Contac t Referred To Contact Diagnoses Chronic pain of both knees Procedures XR KNEE RIGHT 4 OR MORE VIEWS Blake Shearer MD [address] [place] [phone] Referral ID Status Reason Start Date Expiration Date Visits Re quested Visits Authorized [id number] Closed 12/28/2020 1 1 Reason for Visit * Radiology Services (Routine) - Closed Specialty Diagnoses / Procedures Referred By Contac t Referred To Contact Diagnoses Chronic pain of both knees Procedures XR KNEE RIGHT 4 OR MORE VIEWS Blake Shearer MD [address] [place] [phone] Referral ID Status Reason Start Date Expiration Date Visits Re quested Visits Authorized [id number] Closed 12/28/2020 1 1 Encounter Details Date Type Department Care Team (Latest Contact Info) Description 12/28/2020 8:39 EDT - 12/28/2020 23:59 EDT [address] Encounter [address] X[address] [place] [address] Chronic pain of both knees Discharge Disposition: [...] Tablets by mouth daily. 07/11/2023 glucosam/chond-msm1/C/m ang/bor ([id number] COMPLEX ORAL) Take by mouth. 10/18/2021 herbal [...] Contact Info) Description 01/31/2024 10:15 EDT Telemedicine [facility] Neurology - S [address] [phone] Med Maldonado MD [address] [place] [address], [address] [place] [phone] 08/31/2024 9:40 EST Appointment Naz Perez [address] [address] documented as of this encounter Procedures Procedure Name Priority Date/Time Associated Diagnosis Comments XR KNEE RIGHT 4 OR MORE VIEWS Routine 12/28/2020 8:58 EDT Chronic pain of both knees documented in this encounter Results * XR KNEE RIGHT 4 OR MORE [...] knees documented in this encounter Care Teams Child Welfare Worker Relationship Specialty Start Date End Date Morgan Panchal PA PCP - General 03/27/20 03/05/23 documented as of this encounter
--- OUTSIDE RECORDS SUMMARY | 2024-01-26 12:52 | XMS_ITS | Encounter Summary ---
Author Organization [facility] Address [address] [place] [address] Care Team Providers Care Life Agent Name Role Phone Morgan Panchal Primary Care Provider [phone] Encounter Details Date Type Department Care Team (Latest Contact Info) Description 12/28/2020 8:39 EDT - 12/28/2020 23:59 EDT [address] Encounter [address] [place], [place] [phone] Chronic pain of both knees Discharge Disposition: [...] Tablets by mouth daily. 07/11/2023 glucosam/chond-msm1/C/m ang/bor ([id number]-MMP COMPLEX ORAL) Take by mouth. 10/18/2021 herbal [...] EDT Telemedicine [facility] Neurology - S [address] [phone] Med Maldonado MD [address] [place] [address], [address] [place] [address] 08/31/2024 9:40 EST Appointment Naz Perez [place] [facility] [address] [place] [address] documented as of this encounter Procedures Procedure Name Priority Date/Time Associated Diagnosis Comments XR BONE LENGTH STUDY Routine 12/28/2020 8:57 EDT Chronic pain of both knees documented in this encounter Results * XR BONE LENGTH STUDY (12/28/2020 8:57 [...] knees documented in this encounter Care Teams Life Agent Relationship Specialty Start Date End Date Morgan Panchal PA PCP - General 03/27/20 03/05/23 documented as of this encounter
--- OUTSIDE RECORDS SUMMARY | 2024-01-26 12:52 | XMS_ITS | Encounter Summary ---
Author Organization [facility] Address [address] [place] [address] Care Team Providers Care Collar Pointer Name Role Phone Morgan Panchal Primary Care Provider [phone] Encounter Details Date Type Department Care Team (Late st Contact Info) Description 09/25/2020 10:20 EDT Immunization [facility] Mobile Testing [address] [place] [address] Social History Tobacco Use Types Packs/Day Years [...] Description 01/31/2024 10:15 EDT Telemedicine [facility] Neurology - [address] [place], [place] [address] Med Maldonado MD [address] [place] [address], [address] [place] [phone] 08/31/2024 9:40 EST Appointment Naz Perez [address] [address] documented as of this encounter Visit Diagnoses Not on filedocumented in this encounter Orders Immunization/Injection Count Last Ordered Date First Ordered Date COVID-19 MRNA VACCINE (PFIZE R COVID-19) PF 0.3 ML IM (16 YRS+) 1 09/25/2020 documented in this encounter Care Teams Collar Pointer Relationship Specialty Start Date End Date Morgan Panchal PA PCP - General 03/27/20 03/05/23 documented as of this encounter
--- OUTSIDE RECORDS SUMMARY | 2024-01-26 12:52 | XMS_ITS | Encounter Summary ---
Author Organization [facility] Address [address] [place] [address] Care Team Providers Care Assignment Manager Name Role Phone Morgan Panchal Primary Care Provider [phone] Reason for Referral * PT/OT/ST (Routine) - Specialty Report Received Specialty Diagnoses / Procedures Referred By Tito hernandez Referred To Contact Diagnoses Pain of right heel Kendra Bradford NP [address] [place] [address] Referral ID Status Reason Start Date Expiration Date Visits Requested Visits Authorized [id number] Specialty Report Received Specialty Services Required 09/09/2020 1 1 Question Answer Reason for Request: evaluate and treat Comments Plantar fasciitis and fat pad atrophy Reason for Visit * Reason Comments Pain Encounter Details Date Type Department Care Team (Late st Contact Info) Description 09/09/2020 15:30 EST Office Visit [facility] Foot & Ankle Program - [place] [address] [place] [address] Kendra Bradford NP [address] [place] [address] Pain of right heel (Primary [...] this encounter Progress Notes * Kendra Bradford, LORE - 09/09/2020 1530 EST Diagnosis: ICD-10-CM ICD-9-CM 1. Pain of right heel M79.671 729.5 AMB CONS/FOLLOW UP PHYSICAL THERAPY GENERIC DME ORDER Yolette Tellez is being seen today for Pain of the Right Foot . She was originally sent as a consultation from Dr. Panchal SUBJECTIVE: Yolette Tellez is a 39 y.o. female established patient who returns for evaluation of her right plantar heel that started about a year ago without an injury or increase in her level of physical activity. She had tried taking Tylenol, ibuprofen with no help. She also tried using a compression stocking but it did not help either. She was first met true telemedicine video conferencing on 07/21/2020 and a [id number] visit was suggested for the following week for a physical exam. She was found to have fat pad atrophy in the right heel as well as the element of plantar fasciitis. She was providedwith a short walking boot and returned on 08/21/2020 because the pain had been decreasing and then she had a sudden increase. She was advised to continue using the boot and she is here today and it has been 6 weeks since she has been using the boot. 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 Today she states that her heel is feeling pretty good today but she has not been to work as they have remote schooling on Wednesdays. On the days that she is not working she has very minimal heel pain but days like yesterday when she is on her feet at work the pain can be awful. Foot & Ankle Pain Assessment: Pain Orientation : Right Pain Location: Foot Panda-Wood Pain Rating (Scale 0-10): Hurts a little bit Numeric Pain Level (Scale 1-10): 2 Patient Active Problem List Diagnosis Date Noted ??? 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 Pain of right heel 07/21/2020 Priority: Medium ??? Borderline personality disorder ([facility]) 08/08/2019 Priority: Medium ??? Adjustment disorder with [...] ??? COLPOSCOPY iud ??? PATELLA SURGERY Right 2013 to prevent dislocation? WISDOM TOOTH EXTRACTION 1997 [...] 20 mg by mouth daily. ??? glucosam/chond-msm1/C/yohan/bor (DVEKUALAZDD-YFEGR-XDR COMPLEX ORAL) Take by mouth. ??? herbal [...] A&O x3, mood and affect appropriate Gait: Antalgic. Exam of the right foot/ankle: Neurology: sensation intact Vascular: pedal pulses palpable Musculoskeletal: ROM about the ankle is intact; motor strength about the ankle is intact Skin: intact Tenderness: severe on plantar calcaneus; mild to moderate on heel insertion of the plantar fascia Swelling: plantar heel X-rays today: none ASSESSMENT: ICD-10-CM ICD-9-CM 1. Pain of right heel M79.671 729.5 AMB CONS/FOLLOW UP PHYSICAL THERAPY GENERIC DME ORDER Pain due to fat pad atrophy and plantar fasciitis PLAN: -Immobilization: continue with the walking boot -Activity: non weightbearing as much as possible; she states that she can be nonweightbearing at work about 70% of the time and 98-100% at home -Generic DME: knee roller prescribed to offload the right LE -Comfort: rest and ice as needed -Physical Therapy: prescribed to start working on plantar fasciitis portion of heel pain -Stretching/Strengthening: HEP per PT recommendations -Medications: OTC as needed for pain -Test prior to next visit: none -X-rays for next visit: none -Follow up: Return in about 6 weeks (around 10/21/2020). Symptoms for which to seek care were reviewed. All the questions were answered. Patient voices understanding and agrees with the plan. Dr. Elliott Miramontes MD, was the attending physician in the clinic today but was not consulted during this visit. I spent a total of 29 minutes on the date of this encounter meeting with the patient and reviewing documentation/coordinating care as described in the above note. Cc: Referring Provider - Dr. Panchal PCP - Morgan Panchal Portions of this document have been prepared with speech recognition software or keyboard medical data analyst techniques. Minor irregularities or keyboarding misprints may be present documented in this encounter Plan of Treatment Upcoming Encounters Date Type Department Care Team (Late st Contact Info) Description 01/31/2024 10:15 EDT Telemedicine [facility] Neurology - [address] [phone] Med Maldonado MD [address] [place] [address], [address] [place] [phone] 08/31/2024 9:40 EST Appointment Naz Perez [address] [address] Scheduled Referrals Name Type Priority Associated Diagnoses Orde r Schedule AMB CONS/FOLLOW UP PHYSICAL THERAPY Outpatient Referral Routine Pain of right heel Ordered: 09/09/2020 documented as of this encounter Visit Diagnoses Diagnosis Pain of right heel- Primary Pain in limb documented in this encounter Orders Equipment Count Last Ordered Date First Orde red Date GENERIC DME ORDER 1 09/09/2020 documented in this encounter Care Teams Assignment Manager Relationship Specialty Start Date End Date Morgan Panchal PA PCP - General 03/27/20 03/05/23 documented as of this encounter
--- OUTSIDE RECORDS SUMMARY | 2024-01-26 12:52 | XMS_ITS | Encounter Summary ---
Author Organization [facility] Address [address] [place] [address] Care Team Providers Care Distribution Sales Manager Name Role Phone Morgan Panchal Primary Care Provider [phone] Encounter Details Date Type Department Care Team (Latest Contact Info) Description 01/08/2021 Travel Social History Tobacco Use Types Packs/Day [...] Contact Info) Description 01/31/2024 10:15 EDT Telemedicine [facility] Neurology - [address] [address] Med Maldonado MD [address] [place] [address], [address] [place] [phone] 08/31/2024 9:40 EST Appointment Naz Perez [address] [address] documented as of this encounter Visit Diagnoses Not on filedocumented in this encounter Care Teams Distribution Sales Manager Relationship Specialty Start Date End Date Morgan Panchal PA PCP - General 03/27/20 03/05/23 documented as of this encounter
--- OUTSIDE RECORDS SUMMARY | 2024-01-26 12:52 | XMS_ITS | Encounter Summary ---
Author Organization [facility] Address [address] [place] [address] Care Team Providers Care Sole Inker Name Role Phone Morgan Panchal Primary Care Provider [phone] Reason for Visit * Reason Onset Date Comments Appointment Related 12/30/2020 Encounter Details Date Type Department Care Team (Late st Contact Info) Description 12/30/2020 Telephone [facility] Sports Medicine Program - [address] [place] [address] Blake Shearer MD [address] [place] [phone] Appointment Related Social History Tobacco Use [...] Telephone Encounter - Diandra Gautam MA - 12/30/2020 0944 EDT Images from the original note were not included. MRI is scheduled for Monday01/08/21. Please arrive by 6:30 pm for 7:00 pm exam located at the [facility]. documented in this encounter Plan of Treatment Upcoming Encounters Date Type Department Care Team (Late st Contact Info) Description 01/31/2024 10:15 EDT Telemedicine [facility] Neurology - [address] [id number] Med Malodnado MD [address] [place] [address], [address] [place] [phone] 08/31/2024 9:40 EST Appointment [address] [id number] documented as of this encounter Visit Diagnoses Not on filedocumented in this encounter Care Teams Sole Inker Relationship Specialty Start Date End Date Morgan Panchal PA PCP - General 03/27/20 03/05/23 documented as of this encounter
--- OUTSIDE RECORDS SUMMARY | 2024-01-26 12:52 | XMS_ITS | Encounter Summary ---
Author Organization [facility] Address [address] [place] [address] Care Team Providers Care Voice Over Artist Name Role Phone Morgan Panchal Primary Care Provider [phone] Encounter Details Date Type Department Care Team (Late st Contact Info) Description 05/01/2020 Transcribe Orders [facility] - [employer] [address] [place] [address] Radha Chanel NP [address] [place] [address] Encounter for screening (Primary Dx) Social History Tobacco Use Types [...] Contact Info) Description 01/31/2024 10:15 EDT Telemedicine [facility] Neurology - [address] [place] [address] [place], [place] [address] Med Maldonado MD [address] [place] [address], [address] [place] [phone] 08/31/2024 9:40 EST Appointment Naz Perez [phone] [place], [place] [address] Scheduled Orders Name Type Priority Associated Diagnoses Orde r Schedule COVID-19 TESTING Microbiology Routine Encounter for screening Expected: 05/01/2020 (Approximate), Expires: 05/01/2021 documented as of this encounter Visit Diagnoses Diagnosis Encounter for screening- Primary Screening for unspecified condition documented in this encounter Care Teams Voice Over Artist Relationship Specialty Start Date End Date Morgan Panchal PA PCP - General 03/27/20 03/05/23 documented as of this encounter
--- OUTSIDE RECORDS SUMMARY | 2024-01-26 12:52 | XMS_ITS | Encounter Summary ---
Author Organization [facility] Address [address] [place] [address] Care Team Providers Care Bladder Trimmer Name Role Phone Morgan Panchal Primary Care Provider [phone] Reason for Visit * Reason Comments Pain Encounter Details Date Type Department Care Team (Late st Contact Info) Description 08/21/2020 9:00 EST Office Visit [facility] Foot & Ankle Program - [address] [place] [address] Kendra Bradford NP [address] [place] [address] Pain of right heel (Primary [...] this encounter Progress Notes * Kendra Bradford, FLOUR WORKER - 08/21/2020 0900 EST Diagnosis: ICD-10-CM ICD-9-CM 1. Pain of right heel M79.671 729.5 XR CALCANEOUS RIGHT Yolette Tellez is being seen today for Pain of the Right Calcaneus and Follow- up (rt heel pain nodoi/s) . She was originally sent as a consultation from Dr. Isabelle polk. provider found SUBJECTIVE: Yolette Tellez is a 39 y.o. female established patient who returns for evaluation of her right plantar heel pain that started about a year ago without an injury or increase in her level of physicalactivity. The pain did not respond to the use of Tylenol, ibuprofen or compression stocking. She was first met via telemedicine video conferencing on 07/21/2020 and a vygu-vy-vwaj visit was suggested for better assessment which happened a week later. She was found to have fat pad atrophy but, because of the severe pain, she was provided with a short walking boot to be used for 6 weeks. Her follow-up was scheduled for 09/09/2020 but she called the clinic this week complaining of increased severe mark n so she was brought in today for another evaluation. She states that her heel was starting to feel much better, especially after she added foot insert and a gel heel cup to the walking boot and then, the last week she was on bedrest starting on through the weekend for vertigo. When she returned to work on 08/17/2020 she developed severe excruciating pain with walking which was worse than before she was in the walking boot. 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 On Monday she saw a physical therapist for other issues who suggested removing the insole and keeping only the gelcup. She did that and her symptoms have improved but she is still experiencing quite a bit of pain. Foot & Ankle Pain Assessment: Pain Orientation : Right Pain Location: Foot Numeric Pain Level (Scale 1-10): 4 Pain in another site? : No Pain Quality: Constant, Stabbing Pain Onset: On-going Pain Duration: Continuous Patient Active Problem List Diagnosis Date Noted ??? 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 Pain of right heel 07/21/2020 Priority: Medium ??? Borderline personality disorder ([facility]) 08/08/2019 Priority: Medium ??? Adjustment disorder with [...] by mouth as needed for Pain (). ??? buPROPion (WELLBUTRIN SR) 100 mg SR tablet Take 100 mg by mouth daily. ??? cholecalciferol, Vitamin D3, 1,000 unit tablet Take 5,000 Units by mouth daily. ??? escitalopram oxalate (LEXAPRO) 10 mg tablet Take 20 mg by mouth daily. ??? glucosam/chond-msm1/C/yohan/bor (POXKYKSJWKS-KROML-UDK COMPLEX ORAL) Take by mouth. ??? herbal drugs (FIBER DIET ORAL) Take by mouth. ??? ibuprofen (MOTRIN) 400 mg tablet Take 1 Tab by mouth every 4 hours as needed for Pain. ??? INTRAUTERINE DEVICE, IUD, INTRAUTERINE by intrauterine route. ??? loratadine (CLARITIN) 10 mg tablet Take 10 mg by mouth daily. ??? modafiniL (PROVIGIL) 200 mg tablet Take 200 mg by mouth daily. ??? montelukast (SINGULAIR) 10 mg tablet Take 10 mg by mouth daily. ??? Multivitamins with Minerals tablet tablet Take 1 Tab by mouth daily. ??? omeprazole (PRILOSEC) 20 mg capsule Take 20 mg by mouth daily. No current facility-administered medications for this visit. Allergies Allergen Reactions ??? Other - See Comments Environmental Allergies REVIEW OF SYSTEMS: Negative, except for the pertinent positives noted above OBJECTIVE: Constitutional: NAD Psychiatric: A&O x3, mood and affect appropriate Gait: Antalgic. Exam of the right foot/ankle: Neurology: sensation intact Vascular: pedal pulses palpable Musculoskeletal: ROM about the ankle is decreased by pain; motor strength about the ankle is intact Skin: intact Tenderness: severe in plantar calcaneus and mild in plantar fascia insertion; pain with calcaneus squeeze Swelling: plantar feel Ecchymosis: absent Previous imaging: none X-rays today: weightbearing calcaneus to rule out a fracture. Independent review: unremarkable ASSESSMENT: ICD-10-CM ICD-9-CM 1. Pain of right heel M79.671 729.5 XR CALCANEOUS RIGHT It is entirely possible that she does have plantar fasciitis associated with the past fat pad atrophy and the prolonged bed rest of 4 days because the big flareup when she returned to work on Monday. PLAN: I had a long discussion with the patient about the best way to treat this new increase in her heel pain. Plan includes: -Immobilization: continue with the walking boot but wear it even in bed as a night splint; take it off only to shower, to drive or to ice the foot -Activity: weightbearing as tolerated -Comfort: rest and ice as needed -Orthotics: continue with the gel heel cup in the boot; she is considering adding the full inserts she had since it helped in the past and was encouraged to try it. She will remove it if it increasesthe pain -Physical Therapy: will be considered at the next visit -Stretching/Strengthening: gentle ankle ROM when not in boot -Medications: OTC as needed for pain -Test prior to next visit: none -X-rays for next visit: none -Follow up: Return for scheduled 09/09/2020 appointment Symptoms for which to seek care were reviewed. All the questions were answered. Patient voices understanding and agrees with the plan. Dr. Hubert Landa MD, was the attending physician in the clinic today but was not consulted duringthis visit. I spent a total of 32 minutes on the date of this encounter meeting with the patient and reviewing documentation/coordinating care as described in the above note. Cc: Referring Provider - Dr. Walton ref. provider found PCP - Morgan Panchal Portions of this document have been prepared with speech recognition software or keyboard oracle database manager techniques. Minor irregularities or keyboarding misprints may be present documented in this encounter Plan of Treatment Upcoming Encounters Date Type Department Care Team (Late st Contact Info) Description 01/31/2024 10:15 EDT Telemedicine [facility] Neurology - [address] [id number] Med Maldonado MD [address] [place] [address], [address] [place] [phone] 08/31/2024 9:40 EST Appointment Naz Perez [id number] [place], [place] [phone] documented as of this encounter Procedures Procedure [...] appropriate. Soft tissues are grosslyunremarkable. Kendra Bradford FILTER CHANGER IMG DIAGNOST IC IMAGING ORDERABLES documented in this encounter Visit Diagnoses Diagnosis Pain of right heel- Primary Pain in limb documented in this encounter Care Teams Bladder Trimmer Relationship Specialty Start Date End Date Morgan Panchal PA PCP - General 03/27/20 03/05/23 documented as of this encounter
--- OUTSIDE RECORDS SUMMARY | 2024-01-26 12:52 | XMS_ITS | Encounter Summary ---
Author Organization [facility] Address [address] [place] [address] Care Team Providers Care Women'S Apparel Salesperson Name Role Phone Morgan Panchal Primary Care Provider [phone] Reason for Visit * Reason Comments Pain * Referral (Routine) - Receiving Office to Obtain Authorization Specialty Diagnoses / Procedures Referred By Tito hernandez Referred To Contact Orthopedic Surgery Diagnoses Polyneuropathy, unspecified Other hereditary and idiopathic neuropathies Angelic Silva, PHYSICIAN IN PRIVATE PRACTICE [address] [facility] [address] [place] [address] [facility] Foot And Ankle [address] [place] [address] Referral ID Status Reason Start Date Expiration Date Visits Requested Visits Authorized [id number] Receiving Office to Obtain Authorization 1 1 Encounter Details Date Type Department Care Team (Late st Contact Info) Description 07/21/2020 15:[address] [facility] Foot & Ankle Program - [place] [address] [place] [address] Kendra Bradford NP [address] [place] [address] Pain of right heel (Primary [...] of this encounter Progress Notes * Kendra Bradford APRN - 07/21/2020 1515 EST The concept of ???Telemedicine?? has been described to the patient.? Patient has been informed of the anticipated benefits and possible risks.? Patient understands the information provided regardingtelemedicine, has had the opportunity to ask questions about this information, and all questions have been answered to patient???s satisfaction. Patient consents for the use of telemedicine in his/her medical care and authorizes the transmission of any relevant medical information to providers and their staff involved in patient???s medical or mental health care. TELEMEDICINE VIDEO VISIT Today's visit was provided through telemedicine video conferencing: The location of the patient : Home The location of the provider: Office The following staff and their role did participate in today's encounter visit: Kendra Bradford APRN Diagnosis: ICD-10-CM ICD-9-CM 1. Pain of right heel M79.671 729.5 Yolette Tellez is being seen today for Pain of the Right Foot We have been asked to see her in consultation by Dr. Silva HPI: Yolette Tellez is a 39 y.o. female patient who presents with complaint of right plantar heel painthat started about a year ago or maybe longer. She denies any injury or increase in her level of physical activity. She has tried using Tylenol and ibuprofen and compression sock but she is still experiencing pain with weightbearing activities. She has found that she is unable to wear anything elsethen sneakers with her added OTC insoles. Any shoe with a hard soled like her winter boot causes a lot of pain and walking barefoot in the house also causes pain. She was referred to this clinic for further evaluation and management of the symptoms. Foot & Ankle Pain Assessment: Pain Orientation : Right Pain Location: Foot Numeric Pain Level (Scale 1-10): 0 Pain Quality: Sharp, Aching Pain Duration: Intermittent Pain Relieving Factors: rest Other Pain Relieving Factors: wearing compression sock and padded sock Pain Aggravating Factors: Activity(weightbearing activities) Past medical history, medications and allergies were reviewed and noted in [facility]. Patient Active Problem List Diagnosis Date Noted ??? Pain of right heel 07/21/2020 Priority: Medium ??? Borderline personality disorder ([facility]) 08/08/2019 Priority: Medium ??? Adjustment disorder with [...] 20 mg by mouth daily. ??? glucosam/chond-msm1/C/yohan/bor (HGWRAGBCAFX-VWRBG-HTW COMPLEX ORAL) Take by mouth. ??? herbal [...] ??? Other - See Comments Environmental Allergies Review of Systems A ten point review of systems was performed. Pertinent positives are listed below, all others are negative: Musculoskeletal: positive for as per HPI Vital signs: vitals were not taken for this visit. PHYSICAL EXAM - limited: Constitutional: NAD Psychiatric: alert and oriented x3. Mood and affect appropriate. Good historian. Eyes: EOM appear grossly normal ENT: lips appear soft and moist; hearing appears intact at conversional levels Pulmonary: respiratory effort appears normal Musculoskeletal - right foot/ankle: no appreciable swelling; points to the plantar calcaneus as thearea of pain Skin: no rash on lower extremities Hematologic: Ecchymoses are absent. Prior workup of the patient: none Xrays obtained today: none ASSESSMENT: 1. Pain of right heel Most likely pain is heel pain due to fat pad atrophy; differential diagnosis include but not limited to plantar fasciitis, although her described symptoms are not typical of it. She is amenable to a bybn-ec-xspc visit for better assessment of her right foot pain No orders of the defined types were placed in this encounter. PLAN: -Immobilization: possible walking boot to be discussed at the follow-up visit -Activity: weightbearing as tolerated -Comfort: avoid walking barefoot; wear shoes with good shock absorption in the heels -Orthotics: consider using OTC heel gel insert with good cushioning -Medications: OTC as needed for pain -Test prior to next visit: none -X-rays for next visit: none -Follow up: Return in 1 week (on 07/28/2020). All the questions were answered and the patient was encouraged to call the clinic with any questions / concerns. Patient voices understanding and agrees with the plan. Dr. Elliott Miramontes MD, was the attending physician in the clinic today but was not consulted during this visit. I spent a total of 35 minutes on the date of this encounter meeting with the patient and reviewing documentation/coordinating care as described in the above note. Cc: Requesting Provider - Dr. Silva PCP - Morgan Panchal Portions of this document have been prepared with speech recognition software or keyboard senior data architect techniques. Minor irregularities or keyboarding misprints may be present documented in this encounter Plan of Treatment Upcoming Encounters Date Type Department Care Team (Late st Contact Info) Description 01/31/2024 10:15 EDT Telemedicine [facility] Neurology - [address] [id number] Med Maldonado MD [address] [place] [address] [address] [place] [phone] 08/31/2024 9:40 EST Appointment Naz Perez [address] [phone] documented as of this encounter Visit Diagnoses Diagnosis Pain of right heel- Primary Pain in limb documented in this encounter Historical Medications * This list may reflect changes made after this encounter. Medication Sig Dispensed Refills Start Date End Date modafiniL (PROVIGIL) 200 mg tablet Take 1 Tablet by mouth 2 times daily. added in this encounter Care Teams Women'S Apparel Salesperson Relationship Specialty Start Date End Date Morgan Panchal PA PCP - General 03/27/20 03/05/23 documented as of this encounter
--- OUTSIDE RECORDS SUMMARY | 2024-01-26 12:52 | XMS_ITS | Encounter Summary ---
Author Organization [facility] Address [address] [place] [address] Care Team Providers Care Pulling Unit Operator Name Role Phone Morgan Panchal Primary Care Provider [phone] Encounter Details Date Type Department Care Team (Latest Contact Info) Description 04/15/2020 Travel Social History Tobacco Use Types Packs/Day [...] Contact Info) Description 01/31/2024 10:15 EDT Telemedicine [facility] Neurology - [address] [address] Med Maldonado MD [address] [place] [address], [address] [place] [phone] 08/31/2024 9:40 EST Appointment Naz Perez [address] [address] documented as of this encounter Visit Diagnoses Not on filedocumented in this encounter Care Teams Pulling Unit Operator Relationship Specialty Start Date End Date Morgan Panchal PA PCP - General 03/27/20 03/05/23 documented as of this encounter
--- OUTSIDE RECORDS SUMMARY | 2024-01-26 12:52 | XMS_ITS | Encounter Summary ---
Author Organization [facility] Address [address] [place] [address] Care Team Providers Care Farm Products Shipper Name Role Phone Morgan Panchal Primary Care Provider [phone] Encounter Details Date Type Department Care Team (Late st Contact Info) Description 10/16/2020 15:00 EDT Immunization [facility] Mobile [facility] [address] [place] [address] Social History Tobacco Use Types Packs/Day Years [...] Telemedicine [facility] Neurology - [address] [place] [address] [place], [place] [address] Med Maldonado MD [address] [place] [address], [address] [place] [phone] 08/31/2024 9:40 EST Appointment Naz Perez [address] [address] documented as of this encounter Visit Diagnoses Not on filedocumented in this encounter Orders Immunization/Injection Count Last Ordered Date First Ordered Date COVID-19 MRNA VACCINE (PFIZE R COVID-19) PF 0.3 ML IM (16 YRS+) 1 10/16/2020 documented in this encounter Care Teams Farm Products Shipper Relationship Specialty Start Date End Date Morgan Panchal PA PCP - General 03/27/20 03/05/23 documented as of this encounter
--- OUTSIDE RECORDS SUMMARY | 2024-01-26 12:52 | XMS_ITS | Encounter Summary ---
Author Organization [facility] Address [address] [place] [address] Care Team Providers Care Selector Packer Name Role Phone Morgan Panchal Primary Care Provider [phone] Encounter Details Date Type Department Care Team (Late st Contact Info) Description 08/17/2020 Orders Only [facility] Sports Medicine Program - [address] [address] Blake Shearer MD [address] [place] [address] Patellofemoral arthritis of right knee (Primary Dx) Social History Tobacco Use [...] Contact Info) Description 01/31/2024 10:15 EDT Telemedicine [facility] Neurology - [address] [phone] Med Maldonado MD [address] [place] [address], [address] [place] [phone] 08/31/2024 9:40 EST Appointment Naz Perez [address] [phone] documented as of this encounter Visit Diagnoses Diagnosis Patellofemoral arthritis of right knee- Primary documented in this encounter Care Teams Selector Packer Relationship Specialty Start Date End Date Morgan Panchal PA PCP - General 03/27/20 03/05/23 documented as of this encounter
--- OUTSIDE RECORDS SUMMARY | 2024-01-26 12:52 | XMS_ITS | Encounter Summary ---
Author Organization [facility] Address [address] [place] [address] Care Team Providers Care Cleaning Maid Name Role Phone Morgan Panchal Primary Care Provider [phone] Reason for Visit * Reason Comments Pain Encounter Details Date Type Department Care Team (Late st Contact Info) Description 07/28/2020 11:30 EST Office Visit [facility] Foot & Ankle Program - [address] [place] [address] Kendra Bradford NP [address] [place] [address] Pain of right heel (Primary Dx); Fat pad atrophy of foot Social History Tobacco Use Types Packs/Day Years [...] this encounter Progress Notes * Kendra Bradford, FARM SERVICE ADVISER - 07/28/2020 1130 EST Diagnosis: ICD-10-CM ICD-9-CM 1. Pain of right heel M79.671 729.5 PNEUMATIC WALKING BOOT - SHORT (L4360) 2. Fat pad atrophy of foot L90.9 701.9 Yolette Tellez is being seen today for Pain of the Right Foot . She was originally sent as a consultation from Dr. Panchal SUBJECTIVE: Yolette Tellez is a 39 y.o. female established patient who returns for evaluation of her right plantar heel pain that started about a year ago without an injury or increase in her level of physicalactivity. Over the months, she has used Tylenol, ibuprofen and a compression stock but is still experiencing pain with any weightbearing activity. She has been unable to wear anything else in sneakers with added OTC insoles as an issue with a hard soled like a winter boot because of the pain. Walking barefoot in her house also causes pain. She was first met on 07/21/2020 via televideo and a qlbp-tn-cpab visit was suggested for better assessment of her symptoms. Today she states that her pain is unchanged. Foot & Ankle Pain Assessment: Pain Orientation : Right Pain Location: Foot Numeric Pain Level (Scale 1-10): 7 Pain Quality: Sharp Pain Duration: Intermittent Pain Relieving Factors: rest Pain Aggravating Factors: Activity(wt bearing) Patient Active Problem List Diagnosis Date Noted ??? 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 Pain of right heel 07/21/2020 Priority: Medium ??? Borderline personality disorder ([facility]) 08/08/2019 Priority: Medium ??? Adjustment disorder with [...] 20 mg by mouth daily. ??? glucosam/chond-msm1/C/yohan/bor ([id number] COMPLEX ORAL) Take by mouth. ??? herbal [...] intact Vascular: pedal pulses palpable Musculoskeletal: ROM is intact; strength is intact; fat pad markedly decreased from heel aspect Skin: intact Tenderness: severe on plantar calcaneus as well as calcaneus squeeze; none on plantar fascia Swelling: none Ecchymosis: absent Previous imaging: none X-rays today: none ASSESSMENT: ICD-10-CM ICD-9-CM 1. Pain of right heel M79.671 729.5 PNEUMATIC WALKING BOOT - SHORT (L4360) 2. Fat pad atrophy of foot L90.9 701.9 PLAN: We discussed the benefit of immobilization in reducing severe heel pain. Plan includes: -Immobilization: walking boot -Activity: as tolerated; avoid walking barefoot -Orthotics: OTC gel with good cushioning -Shoes with good shock absorption such as Alpine Defyer -Medications: OTC NSAID's prn for pain - with meals -Comfort: ice -Stretching: gentle ankle ROM / alphabet stretches when not in the boot -X-rays for next visit:none -Follow up:Return in about 6 weeks (around 09/08/2020). All the questions were answered and the patient was encouraged to call the clinic with any questions / concerns. Patient voices understanding and agrees with the plan. Dr. Isak Pringle MD, was the attending physician in the clinic today but was not consulted duringthis visit. I spent a total of 25 minutes on the date of this encounter meeting with the patient and reviewing documentation/coordinating care as described in the above note. No procedures were performed at the time of the visit. Cc: Requesting Provider - Dr. Panchal PCP - Morgan Panchal Portions of this document have been prepared with speech recognition software or keyboard data warehousing manager techniques. Minor irregularities or keyboarding misprints may be present documented in this encounter Plan of Treatment Upcoming Encounters Date Type Department Care Team (Late st Contact Info) Description 01/31/2024 10:15 EDT Telemedicine [facility] Neurology - [address] [place] [address] [place], [place] [address] Med Maldonado MD [address] [place] [address], Level 2 [place] [phone] 08/31/2024 9:40 EST Appointment Naz Perez [address] [id number] documented as of this encounter Visit Diagnoses Diagnosis Pain of right heel- Primary Pain in limb Fat pad atrophy of foot Other musculoskeletal symptoms referable to limbs documented in this encounter Orders Equipment Count Last Ordered Date First Orde red Date PNEUMATIC WALKING BOOT - SHORT (L4360) 1 documented in this encounter Care Teams Cleaning Maid Relationship Specialty Start Date End Date Morgan Panchal PA PCP - General 03/27/20 03/05/23 documented as of this encounter
--- OUTSIDE RECORDS SUMMARY | 2024-01-26 12:52 | XMS_ITS | Encounter Summary ---
Author Organization [facility] Address [address] [place] [address] Care Team Providers Care Burning Machine Operator Name Role Phone Morgan Panchal Primary Care Provider [phone] Reason for Referral * Radiology Services (Routine) - Closed Specialty Diagnoses / Procedures Referred By Contac t Referred To Contact Diagnoses Chronic pain of both knees Patellar instability of both knees Patellofemoral arthritis of right knee Procedures CT KNEE RIGHT WO CONTRAST Blake Shearer MD [address] [place] [phone] Referral ID Status Reason Start Date Expiration Date Visits Re quested Visits Authorized [id number] Closed 12/28/2020 1 1 Reason for Visit * Radiology Services (Routine) - Closed Specialty Diagnoses / Procedures Referred By Contac t Referred To Contact Diagnoses Chronic pain of both knees Patellar instability of both knees Patellofemoral arthritis of right knee Procedures CT KNEE RIGHT WO CONTRAST Blake Shearer MD [address] [place] [phone] Referral ID Status Reason Start Date Expiration Date Visits Re quested Visits Authorized [id number] Closed 12/28/2020 1 1 Encounter Details Date Type Department Care Team (Latest Contact Info) Description 02/24/2021 15:09 EDT - 02/24/2021 23:59 EDT Hospital Encounter Naz Perez [place] [address] [place] [address] Chronic pain of both knees; Patellar instability [...] Tablets by mouth daily. 07/11/2023 glucosam/chond-msm1/C/m ang/bor ([id number] COMPLEX ORAL) Take by mouth. 10/18/2021 herbal [...] Info) Description 01/31/2024 10:15 EDT Telemedicine [facility] Neurology - [address] [address] Med Maldonado MD [address] [place] [address], [address] [place] [phone] 08/31/2024 9:40 EST Appointment Naz Perez [address] [id number] [place], [place] [phone] documented as of this encounter Procedures Procedure Name Priority Date/Time Associated Diagnosis Comments CT KNEE LEFT WO CONTRAST Routine 02/24/2021 15:28 EDT Chronic pain of both knees Patellar instability of both knees Patellofemoral arthritis of left knee CT KNEE RIGHT WO CONTRAST Routine 02/24/2021 15:28 EDT Chronic pain of both knees Patellar instability of both knees Patellofemoral arthritis of right knee documented in this encounter Results * CT KNEE RIGHT WO CONTRAST (02/24/2021 [...] Blake Shearer MD IMG CT ORDERABL ES documented in this encounter Visit Diagnoses Diagnosis Chronic pain of both knees Patellar instability of both knees Other specified disorders of lower leg joint Patellofemoral arthritis of right knee documented in this encounter Care Teams Burning Machine Operator Relationship Specialty Start Date End Date Morgan Panchal PA PCP - General 03/27/20 03/05/23 documented as of this encounter
--- OUTSIDE RECORDS SUMMARY | 2024-01-26 12:53 | XMS_ITS | Encounter Summary ---
Author Organization [facility] Address [address] [place] [address] Care Team Providers Care General Utility Maintenance Repairer Name Role Phone RicardoAngelic LORE Primary Care Provider [phone] Reason for Visit * Reason Comments Annual Exam for [place] Encounter Details Date Type Department Care Team (Late st Contact Info) Description 07/31/2019 18:10 EST - 07/31/2019 18:40 EST Hospital Encounter [facility] - [address] [phone] Melinda Laureano PA-C [address] [place] [phone] Normal physical exam (Primary Dx) Discharge Disposition: Home or Self Care Social History Tobacco Use Types Packs/Day Years Used Date Smoking Tobacco: Never Smokeless Tobacco: Never Alcohol Use Standard Drinks/Week Comments No 0 (1 standard drink = 0.6 oz pur e alcohol) rare Sex and Gender Information Value Date Recorded Sex Assigned at Not on file Gender Identity Female 02/24/2020 22:01 EDT Sexual Orientation Not on file documented as of this encounter Last Filed Vital Signs Vital Sign Reading Time Taken Comments Blood Pressure 124/77 07/31/2019 1808 EST Pulse 72 07/31/2019 1808 EST Temperature 36.8 ??C (98.3 ??F) 07/31/2019 1808 EST Respiratory Rate 14 07/31/2019 1808 EST Oxygen Saturation 100% 07/31/2019 1808 EST Inhaled Oxygen Concentration - - Weight 87.4 kg (192 lb 9.6 oz) 07/31/[address] Height 172.7 cm (5' 8) 07/31/2019 1808 EST Body Mass Index 29.28 07/31/2019 1808 EST documented in this encounter Discharge Instructions * Discharge Instructions* Melinda Laureano PA - 07/31/2019 18:38 EST Continue with taking good care of yourself, proceed with the [place] program documented in this encounter Medications at Time of Discharge Medication Sig Dispensed Refills Start Date End Date ibuprofen (MOTRIN) 400 mg tablet Take 1 Tab by mouth every 4 hours as needed for Pain. 01/09/2014 Multivitamins with Minerals tablet tablet Take 1 Tablet by mouth daily. acetaminophen (TYLENOL) 325 mg tablet Take 2 Tabs by mouth as needed for Pain (). 01/02/2014 10/18/2021 buPROPion (WELLBUTRIN SR) 100 mg SR tablet Take 100 mg by mouth daily. 10/18/2021 ELDERBERRY FRUIT ORAL Take by mouth. 10/09 ergocalciferol, vitamin D2, (VITAMIN D ORAL) Take by mouth. 08/01 escitalopram oxalate (LEXAPRO) 10 mg tablet Take 2 Tablets by mouth daily. 07/11/2023 glucosam/chond-msm1/C/ma ng/bor (URYJKALBXRX-RKUKN-UIA COMPLEX ORAL) Take by mouth. 10/18/2021 herbal drugs (FIBER DIET ORAL) Take by mouth. 10/18/2021 loratadine (CLARITIN) 10 mg tablet Take 10 mg by mouth daily. 10/18/2021 UNKNOWN TO PATIENTIndications:heart burn medication 11/06/2019 documented as of this encounter Discharge Disposition Disposition Code Departure Means Destination Home or Self Assisted documented in this encounter ED Notes * Melinda Laureano PA - 07/31/2019 1834 EST DOS: 07/31/2019 Chief Complaint Patient presents with ??? Annual Exam for [place] The patient is a 38 y.o. female who presents today with Annual Exam (for [place]) Patient presents for a physical to go to the [place] program. Patient states she is doing well, was seen in the emergency room for anxiety recently patient feels much better, she continues with her Wellbutrin she has supportive family members. Patient has a negative review of systems other than URI symptoms which are improving.. She has a history of numbness of her feet as well as some knee instability issues which cause some discomfort with walking no worsening symptoms. Review of Systems Constitutional: Negative for activity change, appetite change, chills, fatigue and fever. HENT: Negative for congestion, postnasal drip, rhinorrhea and sore throat (Improving). Respiratory: Negative for cough (Improving) and shortness of breath. Gastrointestinal: Negative for abdominal pain, constipation, diarrhea, nausea and vomiting. Genitourinary: Negative for difficulty urinating. Musculoskeletal: History of knee pain currently stable Skin: Negative for rash. Neurological: Negative for headaches. Psychiatric/Behavioral: Currently stable All other systems reviewed and are negative. No current facility-administered medications for this encounter. Current Outpatient Medications Medication Sig Dispense Refill ??? acetaminophen (TYLENOL) 325 mg tablet Take 2 Tabs by mouth as needed for Pain (). ??? buPROPion (WELLBUTRIN SR) 100 mg SR tablet Take 100 mg by mouth daily. ??? ELDERBERRY FRUIT ORAL Take by mouth. ??? ergocalciferol, vitamin D2, (VITAMIN D ORAL) Take by mouth. ??? escitalopram oxalate (LEXAPRO) 10 mg tablet Take 20 mg by mouth daily. ??? glucosam/chond-msm1/C/yohan/bor (UKJIXILCVKO-RLPHE-GSG COMPLEX ORAL) Take by mouth. ??? herbal drugs (FIBER DIET ORAL) Take by mouth. ??? ibuprofen (MOTRIN) 400 mg tablet Take 1 Tab by mouth every 4 hours as needed for Pain. ??? loratadine (CLARITIN) 10 mg tablet Take 10 mg by mouth daily. ??? Multivitamins with Minerals tablet tablet Take 1 Tab by mouth daily. ??? UNKNOWN TO PATIENT Allergies Allergen Reactions ??? Other - See Comments Environmental Allergies Patient Active Problem List Diagnosis Date Noted ??? Normal labor and delivery 01/09/2014 ??? Encounter for supervision of normal in multigravida 01/02/2014 IMO Update Auto Replacement ??? Numbness and tingling of both legs below knees 09/27/2012 Past Medical History: Diagnosis Date ??? Chickenpox ??? Gestational hypertension ??? Numbness and tingling of foot ??? Pap smear, abnormal ASCUS and HPV ??? Patellar instability Bilateral ??? School problem ??? Wears glasses Social History Tobacco Use ??? Smoking status: Never Smoker ??? Smokeless tobacco: Never Used Substance Use Topics ??? Alcohol use: No Comment: rare ??? Drug use: No Family History Problem Relation Age of Onset ??? High Blood Pressure Mother ??? High Cholesterol Mother ??? High Cholesterol Father ??? High Blood Pressure Maternal Grandfather ??? Diabetes Maternal Grandfather ??? High Cholesterol Maternal Grandfather ??? Cancer Maternal Grandfather prostate BP 124/77 Pulse 72 Temp 98.3 ??F (36.8 ??C) (Temporal) Resp 14 Ht 172.7 cm (68) Wt 87.4 kg (192 lb 9.6 oz) SpO2 100% BMI 29.28 kg/m?? Physical Exam Constitutional: She is oriented to person, place, and time. She appears well- developed and well-nourished. HENT: Head: Normocephalic and atraumatic. Right Ear: External ear normal. Left Ear: External ear normal. Mouth/Throat: Oropharynx is clear and moist. Bilateral TMs clear Eyes: EOM are normal. Right eye exhibits no discharge. Left eye exhibits no discharge. Neck: Normal range of motion. Neck supple. Cardiovascular: Normal rate, regular rhythm, normal heart sounds and intact distal pulses. Pulmonary/Chest: Effort normal and breath sounds normal. No respiratory distress. She has no wheezes. Abdominal: Soft. Bowel sounds are normal. There is no tenderness. There is no guarding. Musculoskeletal: Normal range of motion. She exhibits no edema or tenderness. Neurological: She is alert and oriented to person, place, and time. Skin: Skin is warm and dry. No rash noted. No erythema. Psychiatric: She has a normal mood and affect. Her behavior is normal. Nursing note and vitals reviewed. Consult orders: None PCP: Angelic Silva No results found for this visit on 07/31/19. Radiology orders: None Imaging Results None No orders to display Procedures URGENT CARE COURSE A medical screening exam was performed. Patient to proceed with the [place] program. ASSESSMENT AND PLAN Final diagnoses: Normal physical exam Dr. Andreia Poe was available for consultation during my care of this patient. DISPOSITION: Discharged The patient's pain was managed to an adequate level weighing risk vs. benefit of further medications. Upon departure from [facility], the patient's pain was 0 on a zero to ten scale. Any further pain treatment will be at the discretion of the provider following up with the patient based on their clinical assessment . Condition at departure from the [facility] : Stable MDM 07/31/2019 18:38 * Margarita Leon RN - 07/31/2019 1813 EST The patient presents for physical exam prior to herber program admission tomorrow. She has no otherconcerns that she would like to discuss. * Emily Cannon, KRISTEN - 07/31/2019 1807 EST Name and verified. documented in this encounter Plan of Treatment Upcoming Encounters Date Type Department Care Team (Late st Contact Info) Description 01/31/2024 10:15 EDT Telemedicine [facility] Neurology - [address] [place] [address] [place], [place] [phone] Med Maldonado MD [address] [place] [address], [address] 2 [place] [phone] 08/31/2024 9:40 EST Appointment Naz Perez [address] [phone] documented as of this encounter Visit Diagnoses Diagnosis Normal physical exam- Primary Unspecified general medical examination documented in this encounter Discontinued Medications Medication Sig Discontinue Reason Start Date End Da te docusate sodium (COLACE) 100 mg capsule Take 1 Cap by mouth 2 times daily as needed for Constipation. Therapy completed 01/09/2014 07/31/2019 meclizine (ANTIVERT) 25 mg tablet Take 25 mg by mouth 2 times daily. Reported on 08/18/2016 Therapy completed 07/31/2019 montelukast (SINGULAIR) 10 mg tablet Take 10 mg by mouth daily. Therapy completed 07/31/2019 omeprazole (PRILOSEC) 20 mg capsule Take 20 mg by mouth daily. Therapy completed 07/31/2019 documented as of this encounter Historical Medications * This list may reflect changes made after this encounter. Medication Sig Dispensed Refills Start Date End Date Multivitamins with Minerals tablet tablet Take 1 Tablet by mouth daily. ELDERBERRY FRUIT ORAL Take by mouth. 10/09 herbal drugs (FIBER DIET ORAL) Take by mouth. 10/18/2021 glucosam/chond-msm1/C/man g/bor (RHYMGJBGHQE-BIBLK-OEP COMPLEX ORAL) Take by mouth. 10/18/2021 ergocalciferol, vitamin D2, (VITAMIN D ORAL) Take by mouth. 08/01 UNKNOWN TO PATIENTIndications:heartb urn medication 11/06/2019 added in this encounter Care Teams General Utility Maintenance Repairer Relationship Specialty Start Date End Date Angelic Silva APRN [address] [place] [address] PCP - General 05/05/16 03/26/20 documented as of this encounter
--- OUTSIDE RECORDS SUMMARY | 2024-01-26 12:53 | XMS_ITS | Encounter Summary ---
Author Organization [facility] Address [address] [place] [address] Care Team Providers Care Hand Folder Name Role Phone RicardoAngelic buckley LORE Primary Care Provider [phone] Encounter Details Date Type Department Care Team (Late st Contact Info) Description 08/22/2019 10:00 EST Group Visit [address] [address] Group [facility], [facility] Borderline personality disorder (HCC-CMS) (Primary Dx) Social History Tobacco Use Types Packs/Day Years Used Date Smoking Tobacco: Never Smokeless Tobacco: Never Alcohol Use Standard Drinks/Week Comments No 0 (1 standard drink = 0.6 oz pur e alcohol) rare Sex and Gender Information Value Date Recorded Sex Assigned at Not on file Gender Identity Female 02/24/2020 22:01 EDT Sexual Orientation Not on file documented as of this encounter Plan of Treatment Upcoming Encounters Date Type Department Care Team (Late st Contact Info) Description 01/31/2024 10:15 EDT Telemedicine [facility] Neurology [address] [phone] Med Maldonado MD [address] [place] [address] [address] [place] [phone] 08/31/2024 9:40 EST Appointment Naz Lou [address] [place] [address] documented as of this encounter Visit Diagnoses Diagnosis Borderline personality disorder ([facility])- Primary Borderline personality disorder documented in this encounter Care Teams Hand Folder Relationship Specialty Start Date End Date Angelic Silva APRN [address] [place] [address] PCP - General 05/05/16 03/26/20 documented as of this encounter
--- OUTSIDE RECORDS SUMMARY | 2024-01-26 12:53 | XMS_ITS | Encounter Summary ---
Author Organization [facility] Address [address] [place] [address] Care Team Providers Care Supervisor Coffee Name Role Phone Angelic Silva APRN Primary Care Provider [phone] Encounter Details Date Type Department Care Team (Latest Contact Info) Description 02/27/2020 Travel Social History Tobacco Use Types Packs/Day [...] have Coronavirus / COVID-19? No / Unsure 02/27/2020 9:50 EDT documented as of this encounter Functional [...] Contact Info) Description 01/31/2024 10:15 EDT Telemedicine [facility] Neurology - [address] [place] [address] [place], [place] [address] Med Maldonado MD [address] [place] [address], Level [address] [place] [phone] 08/31/2024 9:40 EST Appointment Naz Perez [address] [address] documented as of this encounter Visit Diagnoses Not on filedocumented in this encounter Care Teams Supervisor Coffee Relationship Specialty Start Date End Date Angelic Silva APRN [address] [place] [address] PCP - General 05/05/16 03/26/20 documented as of this encounter
--- OUTSIDE RECORDS SUMMARY | 2024-01-26 12:53 | XMS_ITS | Encounter Summary ---
Author Organization [facility] Address [address] [place] [address] Care Team Providers Care Pecan Sheller Name Role Phone Morgan Panchal Primary Care Provider [phone] Reason for Visit * Reason Onset Date Comments Appointment Related 04/08/2020 Encounter Details Date Type Department Care Team (Late st Contact Info) Description 04/08/2020 Telephone [facility] Sports Medicine Program - [address] [place] [address] Walter Ferrer MD [address] [place] [phone] Appointment Related Social History Tobacco Use [...] encounter Miscellaneous Notes * Telephone Encounter - Carla Jo MA - 04/08/2020 1006 EDT CELESTINO for Yolette with appt time with Dr. Ferrer to review L knee MRI and re-eval following PT. I scheduled her for 04.21.20 @ 8 am and provided my direct phone number if she needs to reschedule. documented in this encounter Plan of Treatment Upcoming Encounters Date Type Department Care Team (Late st Contact Info) Description 01/31/2024 10:15 EDT Telemedicine [facility] Neurology - [address] [address] Med Maldonado MD [address] [place] [address] [address] 2 [place] [phone] 08/31/2024 9:40 EST Appointment Naz Perez [address] [phone] documented as of this encounter Visit Diagnoses Not on filedocumented in this encounter Care Teams Pecan Sheller Relationship Specialty Start Date End Date Morgan Panchal PA PCP - General 03/27/20 03/05/23 documented as of this encounter
--- OUTSIDE RECORDS SUMMARY | 2024-01-26 12:53 | XMS_ITS | Encounter Summary ---
Author Organization [facility] Address [address] [place] [address] Care Team Providers Care Terrazzo Journeyman Name Role Phone Angelic Silva APRN Primary Care Provider [phone] Moragn Panchal Primary Care Provider [phone] Angelic Silva APRN Primary Care Provider [phone] Reason for Visit * Reason Onset Date Comments COVID-19 03/23/2020 Encounter Details Date Type Department Care Team (Late st Contact Info) Description 03/23/2020 Telephone [facility] Mobile Testing [address] [place] [address] Transcribe, Doctor, COVID-19 Social History Tobacco Use [...] encounter Miscellaneous Notes * Telephone Encounter - Henna Lester - 03/26/2020 1224 EDT Called patient to schedule COVID-19 testing. Requested a call back @[phone]. This is our 2nd attempt at contacting patient * Telephone Encounter - Shellie Anderson - 03/23/2020 1613 EDT Called patient to schedule COVID-19 testing. Requested a call back @[phone]. This is our X1 attempt at contacting patient documented in this encounter Plan of Treatment Upcoming Encounters Date Type Department Care Team (Late st Contact Info) Description 01/31/2024 10:15 EDT Telemedicine [facility] Neurology - [address] [address] Med Maldonado MD [address] [place] [address], Level 2 [place] [phone] 08/31/2024 9:40 EST Appointment Naz Perez [address] [address] documented as of this encounter Visit Diagnoses Not on filedocumented in this encounter Additional Health Concerns Infection Onset Date Last Indicated Resolved Time R/O COVID-19 07/15/2020 07/15/2020 07/20/2020 22:1 7 EST documented as of this encounter Care Teams Terrazzo Journeyman Relationship Specialty Start Date End Date Angelic Silva APRN [address] [place] [address] PCP - General 05/05/16 03/26/20 Morgan Panchal [place] [address] [place] [address] PCP - General 03/27/20 03/05/23 Angelic Silva APRN [address] [place] [phone] PCP - General 03/06/23 documented as of this encounter
--- OUTSIDE RECORDS SUMMARY | 2024-01-26 12:53 | XMS_ITS | Encounter Summary ---
Author Organization [facility] Address [address] [place] [address] Care Team Providers Care Bee Worker Name Role Phone Ricardo Angelicrashaad Gutierrez APRN Primary Care Provider [phone] Reason for Visit * Reason Onset Date Comments Follow-up 08/16/2019 Encounter Details Date Type Department Care Team (Late st Contact Info) Description 08/16/[address] [address] Elliott Curry, [facility] [address] [place] [phone] Follow-up Social History Tobacco Use Types Packs/Day Years [...] Description 01/31/2024 10:15 EDT Telemedicine [facility] Neurology [address] [address] Med Maldonado MD [address] [place] [address] [address] [place] [address] 08/31/2024 9:40 EST Appointment Naz Perez [address] [address] documented as of this encounter Visit Diagnoses Not on filedocumented in this encounter Care Teams Bee Worker Relationship Specialty Start Date End Date Angelic Silva APRN [address] [place], [place] [address] PCP - General 05/05/16 03/26/20 documented as of this encounter
--- OUTSIDE RECORDS SUMMARY | 2024-01-26 12:53 | XMS_ITS | Encounter Summary ---
Author Organization [facility] Address [address] [place] [address] Care Team Providers Care Medical Malpractice Paralegal Name Role Phone Angelic Silva APRN Primary Care Provider [phone] Reason for Visit * Reason Comments Telemedicine Video Visit Patient gave ve rbal consent for today's video visit Joint Pain knees, hips New Patient Visit Patient is being gulshan luated at the request of Laura Silva for hypermobility and above symptoms. * Referral (Routine) - Closed Specialty Diagnoses / Procedures Referred By Tito hernandez Referred To Contact Rheumatology Diagnoses Arthralgia Angelic Silva APRN [address] [place] [address] [place] [address] [address] [place] [address] Referral ID Status Reason Start Date Expiration Date Visits Re quested Visits Authorized [id number] Closed 1 1 Encounter Details Date Type Department Care Team (Late st Contact Info) Description 11/06/2019 10:[address] [facility] Rheumatology & Immunology - [facility] [address] [place], [place] [id number] Jesus Rodriguez Chi, MD [address] [facility], [address] [place] [address] Hypermobility arthralgia (Primary Dx); Primary osteoarthritis involving multiple joints; Lumbar pain Social History Tobacco Use Types Packs/Day Years Used Date Smoking Tobacco: Never Smokeless Tobacco: Never Alcohol Use Standard Drinks/Week Comments Yes 0 (1 standard drink = 0.6 oz pur e alcohol) rare- once a year Sex and Gender Information Value Date Recorded [...] this encounter Patient Instructions * Patient Instructions* Jesus Rodriguez Chi, MD - 11/06/2019 10:20 EDT Try to pursue regular low impact exercising by walking, doing Pilates, quadriceps strengthening exercises for your knees. Try to keep your weight down. We will send you x-ray orders for your lumbar spine and low back exercises to try at home. Try taking ibuprofen 2-3 tablets twice a day on a regular basis for your knee and back pains; you can take Tums tablets to decrease acid in the stomach from the ibuprofen. documented in this encounter Progress Notes * Jesus Rodriguez Chi, MD - 11/06/2019 1020 EDT Subjective: Patient ID: Yolette Tellez is an 39 y.o. female. Chief Complaint Patient presents with ??? Telemedicine Video Visit Patient gave verbal consent for today's video visit ??? Joint Pain knees, hips ??? New Patient Visit Patient is being evaluated at the request of Laura Silva for hypermobility and above symptoms. The concept of Telemedicine has been described to the patient. Patient has been informed of the anticipated benefits and possible risks. Patient understands the information provided regarding telemedicine, has had the opportunity to ask questions about this information, and all questions have been answered to patient's satisfaction. Patient consents for the use of telemedicine in his/her medical care and authorizes the transmission of any relevant medical information to providers and their staff involved in patient's medical or mental health care. TELEMEDICINE VIDEO VISIT Today's visit was provided through telemedicine video conferencing: The location of the patient : Home The location of the provider: Clinic Exam Room The following staff and their role did participate in today's encounter visit: Jesus Rodriguez MD Patient has had longstanding back and knee pains for which she was seeing physical therapy; the physical therapist noted hypermobility and wondered about Susan-Danlos contributing to her aches and pains. She had seen neuro for chronic paresthesias in 2014 and was dx with small fiber neuropathy with normal nerve conduction studies, manifest by chronic tingling at the tops of both feet - she did not feel she needed treatment to relieve tingling or neuropathic pain at that time. Work-up at that time revealed no underlying autoimmune or other etiology. Joints that bother the pt currently: Neck: Some pains Low back: chronic pain for years; has had no xrays Shoulders: Ache with use Elbows: no Wrists: Ache with prolonged knitting or other use Fingers: crack Hips: Pop out. Knees: Pain from structural defects; failed surgical correction of the right knee patella Ankles: no Feet/ toes: chronic pain- in heels, balls of the feet over the past year; no past diagnosis of plantar fasciitis. Joints swelling- knees AM stiffness- 50% of time for 5 min Pain at night- Knees, back can awaken her. Therapies tried and failed- Therapies that helped- Ibuprofen 3 qd - bid prn. Physical activity/ exercise- limited by pain. Summer- gardens for short periods of time due to joint kelly. 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 she was between jobs when the pandemic struck. Patient Active Problem List Diagnosis ??? Small fiber neuropathy ??? Adjustment disorder with mixed anxiety and depressed mood ??? Obstructive sleep apnea syndrome ??? Patellar instability of both knees ??? Borderline personality disorder (HCC-CMS) Past Medical History: Diagnosis Date ??? Chickenpox ??? Gestational hypertension ??? Numbness and tingling of foot ??? Pap smear, abnormal ASCUS and HPV ??? Patellar instability Bilateral ??? School problem ??? Wears glasses Past Surgical History: Procedure Laterality Date ??? COLPOSCOPY iud ??? PATELLA SURGERY Right 2013 to prevent dislocation? WISDOM TOOTH EXTRACTION 1997 Family History Problem Relation Age of Onset ??? High Blood Pressure Mother ??? High Cholesterol Mother ??? Arthritis-Osteo Mother ??? High Cholesterol Father ??? High Blood Pressure Maternal Grandfather ??? Diabetes Maternal Grandfather ??? High Cholesterol Maternal Grandfather ??? Cancer Maternal Grandfather prostate ??? Arthritis-Osteo Sister has had surgeries on the knees. Social Social History Tobacco Use ??? Smoking status: Never Smoker ??? Smokeless tobacco: Never Used Substance Use Topics ??? Alcohol use: Yes Comment: rare- once a year ??? Drug use: No Current Outpatient Medications on File Prior to Visit Medication Sig Dispense Refill ??? acetaminophen (TYLENOL) 325 mg tablet Take 2 Tabs by mouth as needed for Pain (). ??? buPROPion (WELLBUTRIN SR) 100 mg SR tablet Take 100 mg by mouth daily. ??? cholecalciferol, Vitamin D3, 1,000 unit tablet Take 5,000 Units by mouth daily. ??? escitalopram oxalate (LEXAPRO) 10 mg tablet Take 20 mg by mouth daily. ??? glucosam/chond-msm1/C/yohan/bor (OGXVTEZIHHP-DMSNB-RSU COMPLEX ORAL) Take by mouth. ??? herbal drugs (FIBER DIET ORAL) Take by mouth. ??? ibuprofen (MOTRIN) 400 mg tablet Take 1 Tab by mouth every 4 hours as needed for Pain. ??? INTRAUTERINE DEVICE, IUD, INTRAUTERINE by intrauterine route. ??? loratadine (CLARITIN) 10 mg tablet Take 10 mg by mouth daily. ??? montelukast (SINGULAIR) 10 mg tablet Take 10 mg by mouth daily. ??? Multivitamins with Minerals tablet tablet Take 1 Tab by mouth daily. ??? omeprazole (PRILOSEC) 20 mg capsule Take 20 mg by mouth daily. No current facility-administered medications on file prior to visit. Allergies Allergen Reactions ??? Other - See Comments Environmental Allergies Review of Systems Constitutional: Positive for malaise/fatigue. Negative for chills, diaphoresis, fever and weight loss. Gained 50 lbs over 2 yrs: triggered by depression HENT: No oral ulcers No dry mouth Eyes: Negative for pain. No dry eyes Respiratory: Negative for cough, shortness of breath and wheezing. Cardiovascular: Positive for chest pain (due to anxiety; cardiac w/u neg). Negative for palpitations. No raynauds Gastrointestinal: Positive for constipation. Negative for abdominal pain, blood in stool, diarrhea,heartburn and nausea. Genitourinary: Negative for dysuria, frequency and hematuria. Menses suppressed by IUD. Has had 2 kids; 2nd was induced early for evaded blood pressure. No miscarriages. Musculoskeletal: Negative for back pain, joint pain, myalgias and neck pain. Skin: Positive for rash (eczema? On back of arms- red pimples, flare in the sun, though not itchy or painful.). Negative for itching. No Sun sensitive rashes no psoriasis Neurological: Positive for tingling (feet) and headaches (frontal, daily; takes ibuprofen prn). Negative for focal weakness and seizures. Endo/Heme/Allergies: Does not bruise/bleed easily. Psychiatric/Behavioral: Positive for depression (4- 5 yrs; worse over the past year). The patient is nervous/anxious and has insomnia (has JERMAN; has been using cpap x 1 yr). All other systems reviewed and are negative. - See HPI Objective: Physical Exam Constitutional: She is oriented to person, place, and time. Pleasant, heavyset young female Eyes: Conjunctivae and EOM are normal. Pulmonary/Chest: Effort normal. Musculoskeletal: Joints without visible swelling. Beighton score for hypermobility: (Dorsiflexed fifth MCP to 90 degrees, opposed thumb to volar aspect of forearm; able to place hands flat on the floor without bending knees).=5 Knees- as visualized through the video- no effusions, left patella more protuberant than the right. Neurological: She is alert and oriented to person, place, and time. Gait normal. Skin: No rash noted. Psychiatric: She has a normal mood and affect. Thought content normal. Outside labs 03/12/2019: JIE negative RF negative Lyme antibody negative Tickborne DNA panel for Anaplasma, Ehrlichia, Babesia- negative CK 184 ESR 21 (0-20) BMP normal TSH 2.44 CRP 0.29 (0-0.3) 08/29/2018: Ferritin 84 TSH 1.43 CRP 0.35 (0-0.3) 06/29/2018 left hip x-ray: Normal 04/13/2015: JIE negative RF negative SSA, SSB negative Assessment: 1. Hypermobility arthralgia 2. Primary osteoarthritis involving multiple joints 3. 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 There is no specific treatment other than avoiding hyperextension of the joints to prevent dislocation. Try to maintain general conditioning through regular low impact physical activity- consider Pilates, water therapy, walking, modified yoga. 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 She had surgery to tighten the patella on the right at a young age which did not help. She is too young for knee replacement surgery. Advised the patient try taking Aleve 1 tablet twice daily more often and regularly watching for GI upset. Lumbar pain- Which she has had for years. We will send the patient back pain exercises and an x-ray request for imaging to assess for degenerative disc disease and osteoarthritis. Encouraged regular low impact exercise, avoid prolonged sitting, perform activities with proper ergonomics. Barriers to learning identified: No Patient verbalizes understanding and agrees with plan Yes Return if symptoms worsen or fail to improve. Copy of this note will be sent to PCP: Angelic Silva (Portions of this document may have been prepared with speech recognition software or keyboard dataentry techniques. Minor irregularities or keyboarding misprints may be present.) Jesus Rodriguez MD documented in this encounter Plan of Treatment Upcoming Encounters Date Type Department Care Team (Late st Contact Info) Description 01/31/2024 10:[address] [facility] Neurology - [address] [address] Med Maldonado MD [address] [place] [address] [address] [place] [phone] 08/31/2024 9:40 EST Appointment Naz Perez [place] [id number] [place], [place] [address] documented as of this encounter Visit Diagnoses Diagnosis Hypermobility arthralgia- Primary Pain in joint, site unspecified Primary osteoarthritis involving multiple joints Lumbar pain Lumbago documented in this encounter Discontinued Medications Medication Sig Discontinue Reason Start Date End Da te UNKNOWN TO PATIENTIndications:heartburn medication Therapy completed 11/06/2019 ELDERBERRY FRUIT ORAL Take by mouth. 11/06/2019 documented as of this encounter Historical Medications * This list may reflect changes made after this encounter. Medication Sig Dispensed Refills Start Date End Date INTRAUTERINE DEVICE, IUD, INTRAUTERINE by intrauterine route. added in this encounter Care Teams Medical Malpractice Paralegal Relationship Specialty Start Date End Date Angelic Silva APRN [address] [place] [address] PCP - General 05/05/16 03/26/20 documented as of this encounter
--- OUTSIDE RECORDS SUMMARY | 2024-01-26 12:53 | XMS_ITS | Encounter Summary ---
Author Organization [facility] Address [address] [place] [address] Care Team Providers Care Animal Behaviorist Name Role Phone Angelic Silva APRN Primary Care Provider [phone] Encounter Details Date Type Department Care Team (Late st Contact Info) Description 03/26/2020 Transcribe Orders [facility] [employer] [address] [place] [address] Radha Chanel, YOVANY [address] [place] [address] Encounter for preoperative screening laboratory testing for COVID-19 virus (Primary Dx) Social History Tobacco Use Types [...] EDT Telemedicine [facility] Neurology - [address] [place] [address] [place], [place] [id number] Med Maldonado MD [address] [place] [address], Level 2 [place] [phone] 08/31/2024 9:40 EST Appointment Naz Perez [address] [id number] documented as of this encounter Results * COVID-19 TESTING (04/13/2020 15:12 EDT) [facility] COVID-19 rt-PCR Result NEGATIVE Negative 04/14/2020 12:32 EDT [facility] Comment: 2019-novel Coronavirus (2019-nCoV) not detected by the qRT-PCR assay. Consider testing for other respiratory viruses or re-collecting for 2019-nCoV testing. Note: Optimum timing for peak viral levels during infections caused by 2019-nCoV have not been determined. Collection of multiple specimens from the same patient may be necessary to detect the virus. Limitations Positive results are indicative of active infection with SARS-CoV-2 but do not rule out bacterial infection or co-infection with other viruses. The agent detected may not be the definite cause of disease. In addition, detection of viral RNA may not indicate the presence of infectious virus or that SARS-CoV-2 is the causative agent for clinical symptoms. Negative results do not preclude SARS-CoV-2 infection and should not be used as the sole basis for patient management decisions. Negative results must be combined with clinical observations, patient history, and epidemiological information. False negative results may also occur if amplification inhibitors are present in the specimen or if inadequate numbers of organisms are present in the specimen. Optimum specimen types and timing for peak viral levels during infections caused by SARS-CoV-2 have not been fully determined. Collection of multiple specimens (types and time points) from the same patient may be necessary to detect the virus. The test was validated for use with upper respiratory specimens obtained via nasopharyngeal or oropharyngeal swabs in VTM, UTM, M4, M5, M6, saline, and MTM media. The performance of this test has not been established for other specimens. Specimens collected using other FDA recommended Specimen Collection Materials listed in the FDA COVID-19 [employer] communication (October 03, 2019) are processed with the caveat that they were not all validated for use with this test and the result must be interpreted in this context. Furthermore, a false negative results may occur if a specimen is improperly collected, transported or handled. If the virus mutates in the RT-PCR target region, SARS-CoV-2 may not be detected or may be detected less predictably. Inhibitors or other types of interference may produce a false negative result. An interference study evaluating the effect of common cold medications was not performed. This test is not FDA-cleared but its performance characteristics were established by our CLIA-certified, CAP-accredited, high complexity laboratory in accordance with CLIA regulations, [employer] (CAP) guidelines (Sep 26, 2019), and FDA guidance (Sep 07, 2019). This test is only for use under the Food and Drug Administration's Emergency Use Authorization. Performing Lab [facility] [employer] [place] 04/14/2020 12:32 EDT [facility] Swab ENTIRE NASOPHARYNX / Unknown Swab / Unknown 04/13/2020 15:12 EDT 04/13/2020 15:12 EDT Doctor Transcribe MICROBIOLOGY - GENE [facility] ORDERABLES [facility] [address] [place] [address] [facility] [place] documented in this encounter Visit Diagnoses Diagnosis Encounter for preoperative screening laboratory testing for COVID-19 virus- Primary documented in this encounter Care Teams Animal Behaviorist Relationship Specialty Start Date End Date Angelic Silva APRN [address] [place] [address] PCP - General 05/05/16 03/26/20 documented as of this encounter
--- OUTSIDE RECORDS SUMMARY | 2024-01-26 12:53 | XMS_ITS | Encounter Summary ---
Author Organization [facility] Address [address] [place] [address] Care Team Providers Care Interlocking And Signal Mechanic Name Role Phone Angelic Silva APRN Primary Care Provider [phone] [phone] Encounter Details Date Type Department Care Team (Latest Contact Info) Description 02/24/2020 Travel Social History Tobacco Use Types Packs/Day [...] have Coronavirus / COVID-19? No / Unsure 02/24/2020 21:40 EDT documented as of this encounter Functional [...] Description 01/31/2024 10:15 EDT Telemedicine [facility] Neurology - [address] [place] [address] [place], [place] [address] Med Maldonado MD [address] [place] [address], [address] [place] [phone] 08/31/2024 9:40 EST Appointment Naz Perez [address] [address] documented as of this encounter Visit Diagnoses Not on filedocumented in this encounter Care Teams Interlocking And Signal Mechanic Relationship Specialty Start Date End Date Angelic Silva APRN [address] [place] [address] PCP - General 05/05/16 03/26/20 documented as of this encounter
--- OUTSIDE RECORDS SUMMARY | 2024-01-26 12:53 | XMS_ITS | Encounter Summary ---
Author Organization [facility] Address [address] [place] [address] Care Team Providers Care Knife Finisher Name Role Phone RicardoAneglic buckley Brenda TORREZ Primary Care Provider [phone] [phone] Reason for Visit * Reason Comments Anxiety Encounter Details Date Type Department Care Team (Late st Contact Info) Description 08/20/2019 12:00 EST Office Visit [address] [phone] Sherlyn De La Rosa APRN [address] [place] [address], [facility] [address] [place] [phone] Borderline personality disorder ([facility]) (Primary Dx); Obstructive sleep apnea syndrome; Adjustment disorder with mixed anxiety and depressed mood Social History Tobacco Use Types Packs/Day Years [...] Contact Info) Description 01/31/2024 10:15 EDT Telemedicine [address] [address] Med Maldonado MD 1 [facility], Level [address] [place] [phone] 08/31/2024 9:40 EST Appointment Naz Chris [address] [phone] documented as of this encounter Visit Diagnoses Diagnosis Borderline personality disorder ([facility] Primary Borderline personality disorder Obstructive sleep apnea syndrome Obstructive sleep apnea (adult) (pediatric) Adjustment disorder with mixed anxiety and depressed mood documented in this encounter Care Teams Knife Finisher Relationship Specialty Start Date End Date Angelic Silva APRN [address] [place], [place] [id number] PCP - General 05/05/16 03/26/20 documented as of this encounter
--- OUTSIDE RECORDS SUMMARY | 2024-01-26 12:53 | XMS_ITS | Encounter Summary ---
Author Organization [facility] Address [address] [place] [address] Care Team Providers Care Grizzly Worker Name Role Phone RicardoAngelic buckley LORE Primary Care Provider +1 -[phone] Encounter Details Date Type Department Care Team (Late st Contact Info) Description 08/19/2019 10:00 EST Group Visit [address] 085031 Group Iop, [facility] Borderline personality disorder (HCC-CMS) (Primary Dx) [...] [facility] Neurology [address] 662781 Med Maldonado MD [address] [place] [address] Level 2 [place] [phone] 08/31/2024 9:40 EST Appointment Naz Lou [address] [place] [address] documented as of this encounter Visit Diagnoses Diagnosis Borderline personality disorder ([facility])- Primary Borderline personality disorder documented in this encounter Care Teams Grizzly Worker Relationship Specialty Start Date End Date Angelic Silva APRN [address] [place] [address] PCP - General 05/05/16 03/26/20 documented as of this encounter
--- OUTSIDE RECORDS SUMMARY | 2024-01-26 12:53 | XMS_ITS | Encounter Summary ---
Author Organization [facility] Address [address] [place] [address] Care Team Providers Care Managing Partner Digital Content Marketing [employer] Name Role Phone Ricardo Angelicrashaad Gutierrez APRN Primary Care Provider +1 -[phone] Encounter Details Date Type Department Care Team (Late st Contact Info) Description 08/01/2019 9:30 EST Group Visit [address] 138811 Group Php, [facility] Major depressive disorder, recurrent episode, severe with mixed features (HCC-CMS) (Primary Dx) Social History Tobacco Use [...] Contact Info) Description 01/31/2024 10:15 EDT Telemedicine [facility] Neurology [address] 606581 Med Maldonado MD [address] [place] [address] Level 2 [place] [phone] 08/31/2024 9:40 EST Appointment Naz [facility] [address] [place] [address] documented as of this encounter Visit Diagnoses Diagnosis Major depressive disorder, recurrent episode, severe with mixed features (HCC-CMS)- Primary documented in this encounter Care Teams Managing Partner [employer] [place] Relationship Specialty Start Date End Date Angelic Silva APRN [address] [place] [address] PCP - General 05/05/16 03/26/20 documented as of this encounter
--- OUTSIDE RECORDS SUMMARY | 2024-01-26 12:53 | XMS_ITS | Encounter Summary ---
Author Organization [facility] Address [address] [place] [address] Care Team Providers Care Raftsman Name Role Phone Ricardo Angelicrashaad Gutierrez APRN Primary Care Provider +1 -[phone] Encounter Details Date Type Department Care Team (Late st Contact Info) Description 08/08/2019 9:30 EST Group Visit [address] 943801 Group Php, [facility] Adjustment disorder with mixed disturbance of emotions and conduct (Primary Dx) Social History Tobacco Use Types [...] Contact Info) Description 01/31/2024 10:15 EDT Telemedicine [facility] Neurology [address] 802331 Med Maldonado MD [address] [place] [address] Level 2 [place] [phone] 08/31/2024 9:40 EST Appointment Naz Lou [address] [place] [address] documented as of this encounter Visit Diagnoses Diagnosis Adjustment disorder with mixed disturbance of emotions and conduct- Primary documented in this encounter Care Teams Raftsman Relationship Specialty Start Date End Date Angelic Silva APRN [address] [place] [address] PCP - General 05/05/16 03/26/20 documented as of this encounter
--- OUTSIDE RECORDS SUMMARY | 2024-01-26 12:53 | XMS_ITS | Encounter Summary ---
Author Organization [facility] Address [address] [place] [address] Care Team Providers Care Visual Communications Instructor Name Role Phone Angelic Silva LORE Primary Care Provider +1 -[phone] Reason for Visit * Reason Comments Anxiety Encounter Details Date Type Department Care Team (Late st Contact Info) Description 08/13/2019 9:30 EST Office Visit [address] [phone] Loren Kenyon MD 111 [facility] 4 [place] [phone] Adjustment disorder with mixed anxiety and depressed mood (Primary Dx); Borderline personality disorder ([facility]) Social History Tobacco Use Types Packs/Day Years [...] [facility] Neurology [address] 868651 Med Maldonado MD 1 [facility], Level 2 [place] [address] 08/31/2024 9:40 EST Appointment Naz Perez [address] [address] documented as of this encounter Visit Diagnoses Diagnosis Adjustment disorder with mixed anxiety and depressed mood- Primary Borderline personality disorder (HCC-CMS) Borderline personality disorder documented in this encounter Care Teams Visual Communications Instructor Relationship Specialty Start Date End Date Angelic Silva APRN [address] [place], [place] [address] PCP - General 05/05/16 03/26/20 documented as of this encounter
--- OUTSIDE RECORDS SUMMARY | 2024-01-26 12:53 | XMS_ITS | Encounter Summary ---
Author Organization [facility] Address [address] [place] [address] Care Team Providers Care Archivist [employer] Foundation Name Role Phone RicardoAngelic buckley LORE Primary Care Provider +1 -[phone] Encounter Details Date Type Department Care Team (Late st Contact Info) Description 08/27/2019 10:00 EST Group Visit [address] 599001 Group Iop, [facility] Borderline personality disorder (HCC-CMS) (Primary Dx) Social [...] Contact Info) Description 01/31/2024 10:15 EDT Telemedicine [facility] Neurology [address] 850331 Med Maldonado MD [address] [place] [address] Level 2 [place] [phone] 08/31/2024 9:40 EST Appointment Naz Lou [address] [place] [address] documented as of this encounter Visit Diagnoses Diagnosis Borderline personality disorder ([facility])- Primary Borderline personality disorder documented in this encounter Care Teams Archivist Nonprofit Foundation Relationship Specialty Start Date End Date Angelic Silva APRN [address] [place] [address] PCP - General 05/05/16 03/26/20 documented as of this encounter
--- OUTSIDE RECORDS SUMMARY | 2024-01-26 12:53 | XMS_ITS | Encounter Summary ---
Author Organization [facility] Address [address] [place] [address] Care Team Providers Care Burial Vault Deliverer And Installer Name Role Phone RicardoAngelic buckley LORE Primary Care Provider +1 -[phone] Encounter Details Date Type Department Care Team (Late st Contact Info) Description 08/20/2019 10:00 EST Group Visit [address] 116691 Group Iop, [facility] Borderline personality disorder (HCC-CMS) (Primary Dx) [...] 10:15 EDT Telemedicine [facility] Neurology [address] 578011 Med Maldonado MD [address] [place] [address] Level 2 [place] [phone] 08/31/2024 9:40 EST Appointment Naz Lou [address] [place] [address] documented as of this encounter Visit Diagnoses Diagnosis Borderline personality disorder ([facility])- Primary Borderline personality disorder documented in this encounter Care Teams Burial Vault Deliverer And Installer Relationship Specialty Start Date End Date Angelic Silva APRN [address] [place] [address] PCP - General 05/05/16 03/26/20 documented as of this encounter
--- OUTSIDE RECORDS SUMMARY | 2024-01-26 12:53 | XMS_ITS | Encounter Summary ---
Author Organization [facility] Address [address] [place] [address] Care Team Providers Care Healthcare Economics Consultant Name Role Phone RicardoAngelic buckley LORE Primary Care Provider +1 -[phone] Encounter Details Date Type Department Care Team (Late st Contact Info) Description 08/26/2019 10:00 EST Group Visit [address] 947131 Group Iop, [facility] Borderline personality disorder (HCC-CMS) (Primary Dx) [...] 01/31/2024 10:15 EDT Telemedicine [facility] Neurology [address] 558011 Med Maldonado MD [address] [place] [address] Level 2 [place] [phone] 08/31/2024 9:40 EST Appointment Naz Lou [address] [place] [address] documented as of this encounter Visit Diagnoses Diagnosis Borderline personality disorder ([facility])- Primary Borderline personality disorder documented in this encounter Care Teams Healthcare Economics Consultant Relationship Specialty Start Date End Date Angelic Silva APRN [address] [place] [address] PCP - General 05/05/16 03/26/20 documented as of this encounter
--- OUTSIDE RECORDS SUMMARY | 2024-01-26 12:53 | XMS_ITS | Encounter Summary ---
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) Social History Tobacco Use [...] EDT Telemedicine [facility] Neurology [address] 349421 Med Maldonado MD [address] [place] [address] Level 2 [place] [phone] 08/31/2024 9:40 EST Appointment Naz Perez [facility] [address] [place] [address] documented as of this encounter Visit Diagnoses Diagnosis MDD (major depressive disorder), recurrent severe, without psychosis ([facility])- Primary Major depressive disorder, recurrent episode, severe, without mention of psychotic behavior documented in this encounter Care Teams Service Establishment Attendant Relationship Specialty Start Date End Date Angelic Silva APRN [address] [place] [address] PCP - General 05/05/16 03/26/20 documented as of this encounter
--- OUTSIDE RECORDS SUMMARY | 2024-01-26 12:53 | XMS_ITS | Encounter Summary ---
Author Organization [facility] Address [address] [place] [address] Care Team Providers Care Coremaker Apprentice Name Role Phone RicardoAngelic Brenda TORREZ Primary Care Provider +1 -[phone] Reason for Visit * Reason Comments Anxiety Encounter Details Date Type Department Care Team (Late Contact Info) Description 08/27/2019 12:45 EST Office Visit [address] 182611 Sherlyn De La Rosa APRN [address] [place] [address], [facility] 6 [place] [address] Adjustment disorder with mixed disturbance of emotions [...] Contact Info) Description 01/31/2024 10:15 EDT Telemedicine [facility] Neurology [address] 357001 Med Maldonado MD [address] [place] [address], Level 2 [place] [address] 08/31/2024 9:40 EST Appointment Naz Perez [address] [address] documented as of this encounter Visit Diagnoses Diagnosis Adjustment disorder with mixed disturbance of emotions and conduct- Primary documented in this encounter Care Teams Coremaker Apprentice Relationship Specialty Start Date End Date Angelic Silva APRN [address] [place] [address] PCP - General 05/05/16 03/26/20 documented as of this encounter
--- OUTSIDE RECORDS SUMMARY | 2024-01-26 12:53 | XMS_ITS | Encounter Summary ---
Author Organization [facility] Address [address] [place] [address] Care Team Providers Care Night Shift Manager Name Role Phone Ricardo Angelicrashaad Gutierrez APRN Primary Care Provider +1 -[phone] Encounter Details Date Type Department Care Team (Late st Contact Info) Description 08/02/2019 9:30 EST Group Visit [address] 848711 Group Php, [facility] MDD (major depressive disorder), recurrent severe, [...] Contact Info) Description 01/31/2024 10:15 EDT Telemedicine [facility] Neurology [address] 530511 Med Maldonado MD [address] [place] [address] Level 2 [place] [address] 08/31/2024 9:40 EST Appointment Naz Perez [facility] [address] [place] [address] documented as of this encounter Visit Diagnoses Diagnosis MDD (major depressive disorder), recurrent severe, without psychosis ([facility])- Primary Major depressive disorder, recurrent episode, severe, without mention of psychotic behavior documented in this encounter Care Teams Night Shift Manager Relationship Specialty Start Date End Date Angelic Silva APRN [address] [place] [address] PCP - General 05/05/16 03/26/20 documented as of this encounter
--- OUTSIDE RECORDS SUMMARY | 2024-01-26 12:53 | XMS_ITS | Encounter Summary ---
Author Organization [facility] Address [address] [place] [address] Care Team Providers Care Rate Reviewer Name Role Phone Ricardo Angelicrashaad Gutierrez APRN Primary Care Provider +1 -[phone] Encounter Details Date Type Department Care Team (Late st Contact Info) Description 08/06/2019 9:30 EST Group Visit [address] 631511 Group Php, [facility] Adjustment disorder with mixed anxiety and depressed mood (Primary Dx); Borderline personality disorder ([facility]) Social History Tobacco Use Types Packs/Day [...] EDT Telemedicine [facility] Neurology [address] 385541 Med Maldonado MD [address] [place] [address] Level 2 [place] [address] 08/31/2024 9:40 EST Appointment Naz Perez [facility] [address] [place] [address] documented as of this encounter Visit Diagnoses Diagnosis Adjustment disorder with mixed anxiety and depressed mood- Primary Borderline personality disorder (HCC-CMS) Borderline personality disorder documented in this encounter Care Teams Rate Reviewer Relationship Specialty Start Date End Date Angelic Silva APRN [address] [place] [address] PCP - General 05/05/16 03/26/20 documented as of this encounter
--- OUTSIDE RECORDS SUMMARY | 2024-01-26 12:53 | XMS_ITS | Encounter Summary ---
Author Organization [facility] Address [address] [place] [address] Care Team Providers Care Timber Sizer Name Role Phone Ricardo Angelicrashaad Gutierrez APRN Primary Care Provider +1 -[phone] Reason for Visit * Reason Onset Date Comments Follow-up 08/16/2019 Encounter Details Date Type Department Care Team (Late st Contact Info) Description 08/16/[address] [address] Elliott Curry, [facility] [address] [place] [address] Follow-up Social History Tobacco Use Types [...] Description 01/31/2024 10:15 EDT Telemedicine [facility] Neurology [address] [address] Med Maldonado MD [address] [place] [address] Level 2 [place] [address] 08/31/2024 9:40 EST Appointment Naz Perez [address] [address] documented as of this encounter Visit Diagnoses Not on filedocumented in this encounter Care Teams Timber Sizer Relationship Specialty Start Date End Date Angelic Silva APRN [address] [place], [place] [address] PCP - General 05/05/16 03/26/20 documented as of this encounter
--- OUTSIDE RECORDS SUMMARY | 2024-01-26 12:53 | XMS_ITS | Encounter Summary ---
Author Organization [facility] Address [address] [place] [address] Care Team Providers Care Drywall Taper Helper Name Role Phone RicardoKristinaAngelic Brenda LORE Primary Care Provider +1 -[phone] Encounter Details Date Type Department Care Team (Late st Contact Info) Description 08/30/2019 Documentation Visit [address] 792761 Elliott Curry, [facility] [address] [place] [phone] Social History Tobacco Use Types Packs/Day Years [...] 01/31/2024 10:15 EDT Telemedicine [facility] Neurology [address] 310641 Med Maldonado MD [address] [place] [address] Level 2 [place] [address] 08/31/2024 9:40 EST Appointment Naz Perez [address] 692240 [place] [address] documented as of this encounter Visit Diagnoses Not on filedocumented in this encounter Care Teams Drywall Taper Helper Relationship Specialty Start Date End Date Angelic Silva APRN [address] [place] [address] PCP - General 05/05/16 03/26/20 documented as of this encounter
--- OUTSIDE RECORDS SUMMARY | 2024-01-26 12:53 | XMS_ITS | Encounter Summary ---
Author Organization [facility] Address [address] [place] [address] Care Team Providers Care Engineering Officer Name Role Phone RicardoAngelic buckley LORE Primary Care Provider +1 -[phone] Encounter Details Date Type Department Care Team (Late st Contact Info) Description 08/21/2019 10:00 EST Group Visit [address] 346041 Group Iop, [facility] Borderline personality disorder (HCC-CMS) (Primary Dx) [...] Telemedicine [facility] Neurology [address] 011321 Med Maldonado MD [address] [place] [address] Level 2 [place] [phone] 08/31/2024 9:40 EST Appointment Naz Lou [address] [place] [address] documented as of this encounter Visit Diagnoses Diagnosis Borderline personality disorder ([facility])- Primary Borderline personality disorder documented in this encounter Care Teams Engineering Officer Relationship Specialty Start Date End Date Angelic Silva APRN [address] [place] [address] PCP - General 05/05/16 03/26/20 documented as of this encounter
--- OUTSIDE RECORDS SUMMARY | 2024-01-26 12:53 | XMS_ITS | Encounter Summary ---
Author Organization [facility] Address [address] [place] [address] Care Team Providers Care Streetcar Starter Name Role Phone Ricardo Angelicrashaad Gutierrez APRN Primary Care Provider +1 -[phone] Encounter Details Date Type Department Care Team (Late st Contact Info) Description 08/16/2019 9:30 EST Group Visit [address] 260181 Group Php, [facility] Adjustment disorder with mixed anxiety and depressed mood (Primary Dx) Social History Tobacco Use Types [...] Contact Info) Description 01/31/2024 10:15 EDT Telemedicine [facility] Neurology [address] 754891 Med Maldonado MD [address] [place] [address] Level 2 [place] [phone] 08/31/2024 9:40 EST Appointment Naz Lou [address] [place] [address] documented as of this encounter Visit Diagnoses Diagnosis Adjustment disorder with mixed anxiety and depressed mood- Primary documented in this encounter Care Teams Streetcar Starter Relationship Specialty Start Date End Date Angelic Silva APRN [address] [place] [address] PCP - General 05/05/16 03/26/20 documented as of this encounter
--- OUTSIDE RECORDS SUMMARY | 2024-01-26 12:53 | XMS_ITS | Encounter Summary ---
Author Organization [facility] Address [address] [place] [address] Care Team Providers Care Mails Supervisor Name Role Phone Ricardo Angelicrashaad Gutierrez APRN Primary Care Provider +1 -[phone] Encounter Details Date Type Department Care Team (Late st Contact Info) Description 08/09/2019 9:30 EST Group Visit [address] 194171 Group Php, [facility] Adjustment disorder with mixed anxiety and depressed [...] Info) Description 01/31/2024 10:15 EDT Telemedicine [facility] Neurology [address] 513491 Med Maldonado MD [address] [place] [address] Level 2 [place] [address] 08/31/2024 9:40 EST Appointment Naz Lou [address] [place] [address] documented as of this encounter Visit Diagnoses Diagnosis Adjustment disorder with mixed anxiety and depressed mood- Primary documented in this encounter Care Teams Mails Supervisor Relationship Specialty Start Date End Date Angelic Silva APRN [address] [place] [address] PCP - General 05/05/16 03/26/20 documented as of this encounter
--- OUTSIDE RECORDS SUMMARY | 2024-01-26 12:53 | XMS_ITS | Encounter Summary ---
Author Organization [facility] Address [address] [place] [address] Care Team Providers Care Graduate Teaching Associate Name Role Phone Angelic Silva LORE Primary Care Provider +1 -[phone] Reason for Visit * Reason Comments Depression Encounter Details Date Type Department Care Team (Late st Contact Info) Description 08/06/2019 10:30 EST Office Visit [address] 807221 Lorne Kenyon MD 111 [facility] 4 [place] [phone] Adjustment disorder with mixed anxiety and depressed mood (Primary Dx); Obstructive sleep apnea syndrome Social History Tobacco Use Types Packs/Day Years [...] Contact Info) Description 01/31/2024 10:15 EDT Telemedicine [facility] Neurology [address] 793861 Med Maldonado MD [address] [place] [address], Level 2 [place] [address] 08/31/2024 9:40 EST Appointment Naz Perez [address] 628116 documented as of this encounter Visit Diagnoses Diagnosis Adjustment disorder with mixed anxiety and depressed mood- Primary Obstructive sleep apnea syndrome Obstructive sleep apnea (adult) (pediatric) documented in this encounter Care Teams Graduate Teaching Associate Relationship Specialty Start Date End Date Angelic Silva APRN [address] [place] [address] PCP - General 05/05/16 03/26/20 documented as of this encounter
--- OUTSIDE RECORDS SUMMARY | 2024-01-26 12:53 | XMS_ITS | Encounter Summary ---
Author Organization [facility] Address [address] [place] [address] Care Team Providers Care Drapery Examiner Name Role Phone Angelic Silva APRN Primary Care Provider +1 -[phone] Encounter Details Date Type Department Care Team (Late st Contact Info) Description 03/23/2020 Transcribe Orders [facility] [employer] [address] [place] [address] Radha Chanel, YOVANY [address] [place] [address] Encounter for screening, unspecified (Primary Dx) Social History Tobacco Use Types [...] Info) Description 01/31/2024 10:15 EDT Telemedicine [facility] Neurology - [address] [place] [address] [place], [place] 431141 Med Maldonado MD [address] [place] [address], Level 2 [place] [address] 08/31/2024 9:40 EST Appointment Naz Perez [address] [phone] documented as of this encounter Visit Diagnoses Diagnosis Encounter for screening, unspecified- Primary documented in this encounter Care Teams Drapery Examiner Relationship Specialty Start Date End Date Angelic Silva APRN [address] [place], [place] [address] PCP - General 05/05/16 03/26/20 documented as of this encounter
--- OUTSIDE RECORDS SUMMARY | 2024-01-26 12:53 | XMS_ITS | Encounter Summary ---
Author Organization [facility] Address [address] [place] [address] Care Team Providers Care Infection Prevention Practitioner Name Role Phone RicardoAngelic buckley LORE Primary Care Provider +1 -[phone] Encounter Details Date Type Department Care Team (Late st Contact Info) Description 08/28/2019 Documentation Visit [address] [phone] Fadumo Johnson [address] 6 [place] [phone] Social History Tobacco Use Types Packs/Day Years [...] Info) Description 01/31/2024 10:15 EDT Telemedicine [facility] Neurology [address] [phone] Med Maldonado MD [address] [place] [address], [facility] 2 [place] [address] 08/31/2024 9:40 EST Appointment Naz Perez [address] [place], [place] 7520[address] documented as of this encounter Visit Diagnoses Not on filedocumented in this encounter Care Teams Infection Prevention Practitioner Relationship Specialty Start Date End Date Angelic Silva APRN [address] [place] [address] PCP - General 05/05/16 03/26/20 documented as of this encounter
--- OUTSIDE RECORDS SUMMARY | 2024-01-26 12:53 | XMS_ITS | Encounter Summary ---
Author Organization [facility] Address [address] [place] [address] Care Team Providers Care Tennis Coach Name Role Phone Ricardo Angelicrashaad Gutierrez APRN Primary Care Provider [phone] [phone] Reason for Visit * Reason Onset Date Comments Follow-up 08/29/2019 Encounter Details Date Type Department Care Team (Late st Contact Info) Description 08/29/[address] [address] Elliott Curry, [facility] Child Youth and Family Services [address] [place] [phone] Follow-up Social History Tobacco Use Types [...] Info) Description 01/31/2024 10:15 EDT Telemedicine [facility] Neurology [address] [address] Med Maldonado MD [address] [place] [address] Level 2 [place] [address] 08/31/2024 9:40 EST Appointment Naz Perez [address] [address] documented as of this encounter Visit Diagnoses Not on filedocumented in this encounter Care Teams Tennis Coach Relationship Specialty Start Date End Date Angelic Silva APRN [address] [place], [place] [address] PCP - General 05/05/16 03/26/20 documented as of this encounter
--- OUTSIDE RECORDS SUMMARY | 2024-01-26 12:53 | XMS_ITS | Encounter Summary ---
Author Organization [facility] Address [address] [place] [address] Care Team Providers Care Hot Metal Mixer Operator Name Role Phone RicardoKristinaAngelicrashaad Gutierrez APRN Primary Care Provider [phone] [phone] Encounter Details Date Type Department Care Team (Late st Contact Info) Description 08/01/2019 Documentation Visit [address] [address] Elliott Curry, [facility] Child Youth and Family Services [address] [place] [phone] Social History Tobacco Use Types Packs/Day Years [...] Info) Description 01/31/2024 10:15 EDT Telemedicine [facility] Neurology [address] [address] [place] Maldonado MD [address] [place] [address] Level 2 [place] [phone] 08/31/2024 9:40 EST Appointment Naz Perez [address] [place] [address] documented as of this encounter Visit Diagnoses Not on filedocumented in this encounter Care Teams Hot Metal Mixer Operator Relationship Specialty Start Date End Date Angelic Silva APRN [address] [place] [address] PCP - General 05/05/16 03/26/20 documented as of this encounter
--- OUTSIDE RECORDS SUMMARY | 2024-01-26 12:53 | XMS_ITS | Encounter Summary ---
Author Organization [facility] Address [address] [place] [address] Care Team Providers Care Patient Account Representative Name Role Phone RicardoAngelic buckley LORE Primary Care Provider [phone] [phone] Encounter Details Date Type Department Care Team (Late st Contact Info) Description 08/23/2019 10:00 EST Group Visit [address] [phone] Group Iop, [facility] Borderline personality disorder (HCC-CMS) (Primary Dx) Social [...] 10:15 EDT Telemedicine [facility] Neurology [address] [address] Med Maldonado MD [address] [place] [address] Level 2 [place] [phone] 08/31/2024 9:40 EST Appointment Naz Lou [address] [place] [address] documented as of this encounter Visit Diagnoses Diagnosis Borderline personality disorder ([facility])- Primary Borderline personality disorder documented in this encounter Care Teams Patient Account Representative Relationship Specialty Start Date End Date Angelic Silva APRN [address] [place] [address] PCP - General 05/05/16 03/26/20 documented as of this encounter
--- OUTSIDE RECORDS SUMMARY | 2024-01-26 12:53 | XMS_ITS | Encounter Summary ---
Author Organization [facility] Address [address] [place] [address] Care Team Providers Care Career Technical Counselor Name Role Phone Morgan Panchal Primary Care Provider [phone] Encounter Details Date Type Department Care Team (Latest Contact Info) Description 04/13/2020 15:45 EDT Phlebotomy Only [facility] - [employer] [address] [place] [address] Encounter for preoperative screening laboratory testing for [...] Contact Info) Description 01/31/2024 10:15 EDT Telemedicine [facility] Neurology - [address] [place], [place] [phone] Med Maldonado MD [address] [place] [address], Level 2 [place] [phone] 08/31/2024 9:40 EST Appointment Naz Perez [address] [phone] documented as of this encounter Procedures Procedure Name Priority Date/Time Associated Diagnosis Comments DO NOT ORDER STANDALONE - BROAD COVID TEST Today 04/13/2020 15:12 EDT Encounter for preoperative screening laboratory testing for COVID-19 virus COVID-19 TESTING Routine 04/13/2020 15:1 2 EDT Encounter for preoperative screening laboratory testing for COVID-19 virus documented in this encounter Results * DO NOT ORDER STANDALONE - BROAD COVID TEST (04/13/2020 15:12 EDT) COVID-19 rt-PCR Result NEGATIVE Negative 04/14/2020 11:[address] [facility] Comment: 2019-novel Coronavirus (2019-nCoV) not detected [...] in accordance with CLIA regulations, [employer] [place] [employer] (CAP) guidelines (Sep 26, 2019), and FDA guidance (Sep 07, 2019). This test is only for use under the Food and Drug Administration's Emergency Use Authorization. Swab ENTIRE NASOPHARYNX / Unknown Swab / Unknown 04/13/2020 15:12 EDT 04/13/2020 15:12 EDT Doctor Transcribe MICROBIOLOGY - GENE [facility] ORDERABLES [place], [place] * COVID-19 TESTING (04/13/2020 15:12 EDT) COVID-19 rt-PCR Result NEGATIVE Negative 04/14/2020 12:[address] [facility] Comment: 2019-novel Coronavirus (2019-nCoV) not detected [...] in accordance with CLIA regulations, [employer] [place] [employer] (CAP) guidelines (Sep 26, 2019), and FDA guidance (Sep 07, 2019). This test is only for use under the Food and Drug Administration's Emergency Use Authorization. Performing Lab [facility] 04/14/2020 12:32 EDT [facility] SERVICES Swab ENTIRE NASOPHARYNX / Unknown Swab / Unknown 04/13/2020 15:12 EDT 04/13/2020 15:12 EDT Doctor Transcribe MICROBIOLOGY - GENE [facility] ORDERABLES [facility] SERVICES [address] [place], [place] [phone] [place] [address] LABORATORY [place], [place] documented in this encounter Visit Diagnoses Diagnosis Encounter for preoperative screening laboratory testing for COVID-19 virus- Primary documented in this encounter Care Teams Career Technical Counselor Relationship Specialty Start Date End Date Morgan Panchal PA PCP - General 03/27/20 03/05/23 documented as of this encounter
--- OUTSIDE RECORDS SUMMARY | 2024-01-26 12:53 | XMS_ITS | Encounter Summary ---
Author Organization [facility] Address [address] [place] [address] Care Team Providers Care Installation Drafter Name Role Phone Ricardo Angelicrashaad Gutierrez APRN Primary Care Provider [phone] Reason for Visit * Reason Onset Date Comments Follow-up 08/29/2019 Encounter Details Date Type Department Care Team (Late st Contact Info) Description 08/29/[address] [address] Elliott Curry, [facility] Child Youth and Family Services [address] [place] [phone] Follow-up Social History Tobacco Use Types [...] Contact Info) Description 01/31/2024 10:15 EDT Telemedicine [facility] Neurology [address] [address] Med Maldonado MD [address] [place] [address] Level 2 [place] [address] 08/31/2024 9:40 EST Appointment Naz Perez [address] [address] documented as of this encounter Visit Diagnoses Not on filedocumented in this encounter Care Teams Installation Drafter Relationship Specialty Start Date End Date Angelic Silva APRN [address] [place], [place] [address] PCP - General 05/05/16 03/26/20 documented as of this encounter
--- OUTSIDE RECORDS SUMMARY | 2024-01-26 12:53 | XMS_ITS | Encounter Summary ---
Author Organization [facility] Address [address] [place] [address] Care Team Providers Care Background Investigator Name Role Phone Angelic Silva APRN Primary Care Provider [phone] Reason for Visit * Reason Comments Pain * Consult (Routine) - Order Cancelled Specialty Diagnoses / Procedures Referred By Tito hernandez Referred To Contact Orthopedic Surgery Diagnoses Patellar dislocation, left, initial encounter Michelle Jordan MD MPH [address] [facility], [facility] [address] [place] [address] [facility] Ortho Sports [address] [place] [address] [place] [address] Referral ID Status Reason Start Date Expiration Date Visits Requested Visits Authorized [id number] Order Cancelled Specialty Services Required 02/24/2020 1 1 Encounter Details Date Type Department Care Team (Late st Contact Info) Description 02/27/2020 9:45 EDT Office Visit [facility] Sports Medicine Program - [address] [address] [place] [address] Walter Ferrer MD [address] [place] [address] Patellar instability of left knee (Primary Dx); Patellar dislocation, left, initial encounter Social History Tobacco Use Types Packs/Day [...] Progress Notes * Walter Ferrer MD - 02/27/2020 0945 EDT Chief Complaint Patient presents with ??? Left Knee - Pain SUBJECTIVE: Yolette Tellez is a 39 y.o. female who presents to the office with a 3 day history of sudden onset left knee pain. She sustained a patellar dislocation on 02/24/2020. She has had a long history of bilateral patellar instability. Multiple events in both knees since she was very young. She was getting into an inner tube and the patella came out and she was able to get it back in after about 30 seconds. She had more pain than usual and it swelled. Typically she has been able to get the patella back in after only a second or two. This time was worse. She went to the ER and got a knee immobilizer and crutches. She has a history of right patellar instability with surgical stabilization in 2015. Medial patellofemoral ligament reconstruction by Dr. Hayes in [place], [place]. This didn't work. She still has right patellar instability and the right knee is still worse than left. She has used several different braces and has been to PT at several places that helped a little. 8 out of 10 pain. SANE score is 2%. Past Medical History: Diagnosis Date ??? Chickenpox ??? Gestational hypertension ??? Numbness and tingling of foot ??? Pap smear, abnormal ASCUS and HPV ??? Patellar instability Bilateral ??? School problem ??? Wears glasses Past Surgical History: Procedure Laterality Date ??? COLPOSCOPY iud ??? PATELLA SURGERY Right 2012 to prevent dislocation? WISDOM TOOTH EXTRACTION 1997 Patient Active Problem List Diagnosis ??? Small fiber neuropathy ??? Adjustment disorder with mixed anxiety and depressed mood ??? Obstructive sleep apnea syndrome ??? Patellar instability of both knees ??? Borderline personality disorder ([facility]) Outpatient Medications Marked as Taking for the 02/27/20 encounter (Office Visit) with Walter Ferrer MD Medication Sig Dispense Refill ??? acetaminophen (TYLENOL) 325 mg tablet Take 2 Tabs by mouth as needed for Pain (). ??? buPROPion (WELLBUTRIN SR) 100 mg SR tablet Take 100 mg by mouth daily. ??? cholecalciferol, Vitamin D3, 1,000 unit tablet Take 5,000 Units by mouth daily. ??? escitalopram oxalate (LEXAPRO) 10 mg tablet Take 20 mg by mouth daily. ??? glucosam/chond-msm1/C/yohan/bor ([id number]-[id number]-YPG COMPLEX ORAL) Take by mouth. ??? herbal [...] capsule Take 20 mg by mouth daily. Allergies Allergen Reactions ??? Other - See Comments Environmental Allergies Social history: She does not currently work; nonsmoker ROS: A 12 system comprehensive review of systems was documented in the intake form all of which is negative except back pain, knee pain/swelling/instability, headaches. OBJECTIVE: Ht 68 inches; wt 188 lbs [...] flex Distal neurovascular exam intact. DIAGNOSTIC DATA: Plain films taken previously in the ER and independently reviewed by me including standing AP, oblique, lateral and merchant views of the left knee reveals joint spaces well maintained. The trochleargroove is shallow. ASSESSMENT: Recurrent left patellar instability with recent patellar dislocation. DOI 02/24/2020. Concern for MPFL tear. Right patellar instability, recurrent. She is s/p MPFL reconstruction with tibial tubercle transposition that does not appear to have worked. She has done PT and bracing in the past. PLAN: Patients diagnosis, plain films and treatment plan were reviewed at length. We will obtain an MRI of the left knee. Patient was referred for formal PT to work on stretching quads, hamstrings, anterior hip and gastroc as well as strengthening VMO, hip abductors and hip external rotators. A specific protocol was given. One or two visits per week for 6 - 8 weeks. Patient was given patient education with home exercises to start. We will fit her for a knee brace as well. Advised use of heat and ice and OTC medications as necessary. Activity modification also reviewed with avoidance of impact loading activities. Wean from crutches as tolerated. Will return to office in 6 - 8 weeks for re-evaluation. The patient verbalized understanding of the above and agreed with this plan. All of her questions were answered to her satisfaction today. 40 minutes of face to face time was spent with the patient, 25 minutes were spent on counseling andcoordination of care of the patient's left knee pain. I would like to thank Michelle Jordan MD for this kind referral. I will keep you up to date on Julia Tellez's progress. Walter Ferrer M.D. 02/27/2020 11:13 Cc: Angelic Silva MD documented in this encounter Plan of Treatment Upcoming Encounters Date Type Department Care Team (Late st Contact Info) Description 01/31/2024 10:15 EDT Telemedicine [facility] Neurology - S [address] [address] Med Maldonado MD [address] [place] [address], Level 2 [place] [phone] 08/31/2024 9:40 EST Appointment Naz Perez [phone] [place], [place] [phone] documented as of this encounter Visit Diagnoses Diagnosis Patellar instability of left knee- Primary Other joint derangement, not elsewhere classified, lower leg Patellar dislocation, left, initial encounter documented in this encounter Orders Equipment Count Last Ordered Date First Orde red Date PATELLA FEMORAL BRACE WITH HINGE (L1810) 1 02/27/2020 documented in this encounter Care Teams Background Investigator Relationship Specialty Start Date End Date Angelic Silva APRN [address] [place] [address] PCP - General 05/05/16 03/26/20 documented as of this encounter
--- OUTSIDE RECORDS SUMMARY | 2024-01-26 12:53 | XMS_ITS | Encounter Summary ---
Author Organization [facility] Address [address] [place] [address] Care Team Providers Care Fork Truck Driver Name Role Phone Angelic Silva APRN Primary Care Provider [phone] Reason for Referral * Radiology Services (Routine) - Closed Specialty Diagnoses / Procedures Referred By Contzen t Referred To Contact Radiology Diagnoses Patellar instability of left knee Patellar dislocation, left, initial encounter Procedures MR KNEE WO CONTRAST LEFT Walter Ferrer MD [address] [place] [phone] Referral ID Status Reason Start Date Expiration Date Visits Re quested Visits Authorized [id number] Closed 03/19/2020 09/15/2020 1 1 Encounter Details Date Type Department Care Team (Late st Contact Info) Description 03/19/2020 Orders Only [facility] Sports Medicine Program - [address] [place] [address] Walter Ferrer MD [address] [place] [phone] Patellar instability of left knee (Primary [...] Description 01/31/2024 10:15 EDT Telemedicine [facility] Neurology - [address] [place] [address] [place] [phone] Med Maldonado MD [address] [place] [address], Level 2 [place] [phone] 08/31/2024 9:40 EST Appointment Naz Perez [address] [phone] documented as of this encounter Results * MR KNEE WO [...] lower leg Patellar dislocation, left, initial encounter Patellar instability of left knee Other joint derangement, not elsewhere classified, lower leg Patellar dislocation, left, initial encounter documented in this encounter Care Teams Fork Truck Driver Relationship Specialty Start Date End Date Angelic Silva APRN [address] [place] [address] PCP - General 05/05/16 03/26/20 documented as of this encounter
--- OUTSIDE RECORDS SUMMARY | 2024-01-26 12:53 | XMS_ITS | Encounter Summary ---
Author Organization [facility] Address [address] [place] [address] Care Team Providers Care Grocery Clerk Selling Name Role Phone Ricardo Angelicrashaad Gutierrez APRN Primary Care Provider [phone] [phone] Reason for Visit * Reason Comments Psychiatric Evaluation Encounter Details Date Type Department Care Team (Late st Contact Info) Description 08/01/2019 11:30 EST Office Visit [facility] - [address] [phone] Loren Kenyon MD [address] [facility] 4 [place] [phone] Adjustment disorder with mixed anxiety and depressed [...] Sign Reading Time Taken Comments Blood Pressure 128/89 08/01/2019 1145 EST Pulse 85 08/01/2019 1145 EST Temperature 36.5 ??C (97.7 ??F) 08/01/2019 1145 EST Respiratory Rate - - Oxygen Saturation - - Inhaled Oxygen Concentration - - Weight 86.2 kg (190 lb) 08/01/2019 1145 EST Height 172.7 cm (5' 8) 08/01/2019 1145 EST Body Mass Index 28.89 08/01/2019 1145 EST documented in this encounter Plan of Treatment Upcoming Encounters Date Type Department Care Team (Late st Contact Info) Description 01/31/2024 10:15 EDT Telemedicine [facility] Neurology - [address] [place] [address] [place], [place] [address] Med Maldonado MD [address] [place] [address], Level 2 [place] [phone] 08/31/2024 9:40 EST Appointment Naz Perez [address] [phone] documented as of this encounter Visit Diagnoses Diagnosis Adjustment disorder with mixed anxiety and depressed mood- Primary documented in this encounter Discontinued Medications Medication Sig Discontinue Reason Start Date End Da te loratadine (CLARITIN) 10 mg tablet Take 10 mg by mouth daily. Therapy completed 08/01/2019 ergocalciferol, vitamin D2, (VITAMIN D ORAL) Take by mouth. 08/01/2019 documented as of this encounter Historical Medications * This list may reflect changes made after this encounter. Medication Sig Dispensed Refills Start Date End Date cholecalciferol, Vitamin D3, 1,000 unit tablet Take 5,000 Units by mouth daily. 10/18/2021 loratadine (CLARITIN) 10 mg tablet Take 10 mg by mouth daily. 08/01/2019 montelukast (SINGULAIR) 10 mg tablet Take 10 mg by mouth daily. 10/17/2023 omeprazole (PRILOSEC) 20 mg capsule Take 2 Capsules by mouth daily. 07/11/2023 added in this encounter Care Teams Grocery Clerk Selling Relationship Specialty Start Date End Date Angelic Silva APRN [address] [place] [address] PCP - General 05/05/16 03/26/20 documented as of this encounter
--- OUTSIDE RECORDS SUMMARY | 2024-01-26 12:53 | XMS_ITS | Encounter Summary ---
Author Organization [facility] Address [address] [place] [address] Care Team Providers Care Supervisor Salvage Name Role Phone Angelic Silva APRN Primary Care Provider [phone] [phone] Reason for Visit * Reason Comments Knee Pain Reports she dislocat ed her left patella while getting into a tube in the [place] about 4 hrs ago. + numbness/tingling. + swelling and pain. Hx of several patallar dislocations. 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 Encounter Details Date Type Department Care Team (Late st Contact Info) Description 02/24/2020 21:41 EDT - 02/25/2020 0:02 EDT Emergency [facility] Emergency Department - [facility] [address], [place] [address] Michelle Jordan MD MPH [address] [facility], Level 1 [place] [address] Patellar dislocation, left, initial encounter (Primary Dx) Discharge Disposition: Home or Self [...] 21:40 EDT documented as of this encounter Last Filed Vital Signs Vital Sign Reading Time Taken Comments Blood Pressure 117/76 02/24/20202358 EDT Pulse 60 02/24/20202358 EDT Temperature 36.4 ??C (97.5 ??F) 02/24/20202138 EDT Respiratory Rate 14 02/24/20202358 EDT Oxygen Saturation 100% 02/24/20202358 EDT Inhaled Oxygen Concentration - - Weight 85.3 kg (188 lb) 02/24/20202138 EDT Height 172.7 cm (5' 8) 02/24/20202138 EDT Body Mass Index 28.59 02/24/20202138 EDT documented in this encounter Functional Status [...] this encounter Discharge Instructions * Discharge Instructions* Michelle Jordan MD - 02/24/2020 22:56 EDT Your work-up here today was negative for any acute fracture. You do have acute on chronic patella dislocation we have established a referral for you for orthopedics here in [place]. You have been placed in a knee immobilizer and given crutches. Please take your knee out of the knee immobilizer multiple times a day with gentle flexion of your knee. Be very careful not to do any twisting or heavy exertional activities while you are any is in the immobilizer until you follow-up with orthopedics. Also discussed today while we have ruled out any fractures, or acute broken bones we cannot tell you whether or not you have had a ligamentous injury it is possible that you could damage this further if you undergo any heavy activities with that knee. We do want you up and mobile to prevent a blood clot in that leg. Please return immediately to the emergency department should you have worsening pain, swelling of that leg and redness pain in your calf, worsening pain or numbness of your leg feet or toes. * Attachments The following attachments cannot be sent through Care Everywhere. * Kneecap Dislocation ([place]ese) documented in this encounter Medications at Time [...] Tablets by mouth daily. 07/11/2023 glucosam/chond-msm1/C/m ang/bor ([id number]-KWB COMPLEX ORAL) Take by mouth. 10/18/2021 herbal [...] Code Departure Means Destination Home or Self Correction documented in this encounter ED Notes * Milena Brewster RN - 02/25/2020 0000 EDT Pt given discharge instructions and questions answered. Pt to follow up with ortho. Pt comfortable on crutches. Pt ambulated off unit with steady gait. Resps deep and equal, NAD. * Milena Brewster RN - 02/24/2020 2330 EDT Knee immobilizer placed. Pt tolerated well. Pt able to ambulate with crutches without difficulty. MD notified. * Michelle Jordan MD - 02/24/2020 2211 EDT This patient received an evaluation and medical screening exam for emergent medical conditions at the [facility] on 02/24/2020 Scribe attestation: This documentation is recorded by Rom Vigil acting as Scribe under the direction and presence of Michelle Jordan MD. Michelle Jordan MD: I personally performed the services recorded by the scribe in my presence. I confirm the scribe's documentation has been reviewed by me to accurately and completely record my work, treatment, procedures, and medical decision making. HPI Yolette Tellez is a 39 y.o. female with PMH including patellar instability of both knees and small fiber neuropathy who presents to the ED for left knee pain. Patient reports a recent diagnosis of Ehler-Danlos syndrome and is undergoing a work-up via Rheumatology. 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 She states this is a chronic issue and she has had several patellar dislocations in the past, however, she is normally able to pop her knee back into place without difficulty. 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 Pain is ranked as a 5/10 upon ED arrival. She presented to the ED as she does not have a knee immobilizer. Patient denies a fever, cough, shortness of breath, and any other injuries sustained. Vitals are stable upon ED arrival. History was provided by: Patient, a friend, and medical records. Patient's pertinent PMH, FH, SH were reviewed and updated PRN. ROS A 10 point review of systems has been performed, otherwise negative please see HPI. Physical Exam Vital Signs Temp: 36.4 ??C (97.5 ??F) Temp src: Temporal Pulse: 68 Resp: 18 SpO2: 100 % BP: 114/83 BP Device: BP Machine BP Patient Position: Sitting BP Cuff Location: Left arm O2 Device: None (Room air) Nursing note and Vitals reviewed. CONSTITUTIONAL: Alert and oriented to person, place and time, appears in no acute distress. HEENT: HEAD: NC, AT, No obvious lacerations or abrasions noted. EYES: Pupils equal, round, reactive to light; extra ocular movements intact; sclera are clear. ENT: Mucous membranes are moist, no obvious erythema, edema, exudates or trauma noted. Nares are clear with no drainage noted. TM's are clear, no erythema or exudate noted. NECK: Normal range of motion, no signs of meningismus, no midline tenderness appreciated. CARDIOVASCULAR: Regular rate, and rhythm noted. Bilateral, symmetric upper and lower extremity pulse exam noted. RESPIRATORY: No use of accessory muscles of respiration, or retractions noted. BACK: Normal range of motion, no midline tenderness to palpation or percussion, step-offs, erythema, deformities noted. GASTROINTESTINAL: No focal tenderness, rigidity, masses, organomegaly, or guarding noted. MUSCULOSKELETAL: No obvious long bone deformities. There is tenderness to palpation of the left patella and surrounding soft tissue, mild erythema surrounding the left patella. Patient has reduced ROM of the LLE with left knee flexion secondary to pain. Sensation is intact to the LLE. HEME/IMMUNOLOGIC: No LAD, ecchymoses, or petechia noted. SKIN: No obvious rashes, suturable lacerations, or abrasions noted. NEURO: No focal neuro deficits noted. PSYCHIATRIC: Patient is alert and oriented to person, place, and time. Memory, judgement and insight appear normal. Data Interpretation Imaging obtained was reviewed and independently interpreted: Imaging Results XR KNEE LEFT 4 OR MORE VIEWS (Preliminary result) Result time 02/24/20 23:18:49 Preliminary result Impression: No fracture or traumatic malalignment. Narrative: PRELIMINARY RESIDENT REPORT XR KNEE LEFT 4 OR MORE VIEWS 02/24/2020 10:35 PM Signs and Symptoms/Comments: Knee trauma with concern for patellar dislocation. Comparison: None. Technique: 5 views of the right knee were obtained. Findings: No fracture or traumatic malalignment. Joint spaces are well-preserved. There are no suspicious osseous lesions. The patella appears normally aligned. A well- corticated osseous fragment in the expected location of the patellar ligament likely reflects degenerative disease or sequela from prior trauma. Procedures Procedures ED course A medical screening exam was performed. MEDICAL DECISION MAKING: Yolette Tellez is a 39 y.o. female who presents with left knee pain. Patient reports a chronic history of patellar instability with dislocations. Today while twisting to enter an inner tube on the amaro, her left knee had dislocated and while she was able to reduce this, it was much more painful than it typically is and was more difficult than usual. She presented to the ED as she does not have a knee immobilizer at home. Differential Diagnosis includes but is not limited to MSK strain, MSK sprain, dislocation, fracture, septic joint, gout, joint effusion. ASSESSMENT AND ED COURSE: Patient was seen and examined. Physical Exam revealed tenderness to palpation of the left patella and surrounding soft tissue, mild erythema surrounding the left patella. Patient has reduced ROM of the LLE with left knee flexion secondary to pain. Sensation is intact to the LLE. Imaging was obtained, including left knee X-ray, and revealed no fracture or traumatic malalignment. Patient was informed of negative imaging, she was placed into a knee immobilizer by staff midwife and tolerated this well. She was provided with crutches to ambulate with and is stable for discharge home at this time, referral in place for Orthopedics follow-up. Upon review of the laboratory results, imaging findings, and my clinical assessment it was determined that the patient was stable for discharge home with outpatient Orthopedics follow-up after being provided with a knee immobilizer and crutches. Upon reassessment it was felt that the patient was safe for disposition to her home with instructions to follow-up with [facility], she is to call them to schedule this appointment. Sheis to follow-up with her PCP Dr. Silva, return precautions were discussed. All laboratory, imaging, and clinical findings were discussed at length with this patient and theirfamily at bedside. We discussed strict return precautions to come back to the Emergency Department should the patient have any worsening or changes in their symptoms. We also discussed that the patient should follow up with their primary care provider. Patient voiced understanding as well as their need to follow up. Patient denies any current questions at this time. Michelle Jordan MD, MPH ED Attending Clinical Impression/Disposition Discharged Final diagnoses: Patellar dislocation, left, initial encounter The patient's pain was managed to an adequate level weighing risk vs. benefit of further medications. Upon departure from the Emergency Department, the patient's pain was 2 on a zero to ten scale. Any further pain treatment will be at the discretion of the provider following up with the patient based on their clinical assessment. Condition at departure from the Emergency Department: Improved Follow-Up Angelic Silva, LORE [address] [facility] [address] Schedule an appointment as soon as possible for a visit As needed, If symptoms worsen [facility] Emergency Department - [facility] [address] [facility] [address] As needed, If symptoms worsen [facility] Orthopedic Trauma - [facility] [address] So [facility] [phone] Call To schedule follow-up for your patella dislocation. Medications No current facility-administered medications for this encounter. Current Outpatient Medications Medication ??? acetaminophen (TYLENOL) 325 mg tablet ??? buPROPion (WELLBUTRIN SR) 100 mg SR tablet ??? cholecalciferol, Vitamin D3, 1,000 unit tablet ??? escitalopram oxalate (LEXAPRO) 10 mg tablet ??? glucosam/chond-msm1/C/yohan/bor (OCVCXKNCDHT-NKWZV-JOA COMPLEX ORAL) ??? herbal drugs (FIBER DIET ORAL) ??? ibuprofen (MOTRIN) 400 mg tablet ??? INTRAUTERINE DEVICE, IUD, INTRAUTERINE ??? loratadine (CLARITIN) 10 mg tablet ??? montelukast (SINGULAIR) 10 mg tablet ??? Multivitamins with Minerals tablet tablet ??? omeprazole (PRILOSEC) 20 mg capsule documented in this encounter Plan of Treatment Upcoming Encounters Date Type Department Care Team (Late st Contact Info) Description 01/31/2024 10:15 EDT Telemedicine [facility] Neurology - [address] [place] [address] Med Maldonado MD [address] [facility], Level 2 [place] [phone] 08/31/2024 9:40 EST Appointment [facility] [address] [place], [place] [phone] documented as of this encounter Procedures Procedure Name Priority Date/Time Associated Diagnosis Comments XR KNEE LEFT 4 OR MORE VIEWS STAT 02/24/2020 23:09 EDT documented in this encounter Results * XR KNEE LEFT 4 OR MORE VIEWS (02/24/2020 23:09 EDT) Anatomical Region Laterality Modality Lower Extremities Left Computed Radio graphy 02/25/2020 7:53 EDT Addenda Addendum by Azalia Baldwin MD on 03/04/2020 8:35 EDT Addendum: Technique section should read, 5 views of the left knee were obtained. Impressions 02/25/2020 7:53 EDT 1. No fracture or traumatic malalignment. 2. Trace suprapatellar joint effusion and soft tissue swelling along the medial aspect of the knee. I have personally reviewed the images and the above interpretation and agree with the findings. Narrative 02/25/2020 7:53 EDT XR KNEE LEFT 4 OR MORE VIEWS ??02/24/2020 10:35 PM Signs and Symptoms/Comments: ?? Knee trauma with concern for patellar dislocation. Comparison: None. Technique: 5 views of the right knee were obtained. Findings: No fracture or traumatic malalignment. Joint spaces are well-preserved. There are no suspicious osseous lesions. The patella appears normally aligned. A well- corticated osseous fragment in the expected location of the patellar ligament likely reflects degenerative disease or sequela from prior trauma. Trace suprapatellar joint effusion is suspected. Soft tissue swelling is noted along the medial patellar retinaculum. Procedure Note Azalia Baldwin MD - 02/25/2020 XR KNEE LEFT 4 OR MORE VIEWS 02/24/2020 10:35 PM Signs and Symptoms/Comments: Knee trauma with concern for patellar dislocation. Comparison: None. Technique: 5 views of the right knee were obtained. Findings: No fracture or traumatic malalignment. Joint spaces are well-preserved.There are no suspicious osseous lesions. The patella appears normallyaligned. A well- corticated osseous fragment in the expected location ofthe patellar ligament likely reflects degenerative disease or sequela fromprior trauma. Trace suprapatellar joint effusion is suspected. Soft tissueswelling is noted along the medial patellar retinaculum. IMPRESSION 1. No fracture or traumatic malalignment. 2. Trace suprapatellar joint effusion and soft tissue swelling along themedial aspect of the knee. I have personally reviewed the images and the above interpretation andagree with the findings. Michelle Jordan MD MPH IMG DIAGNOSTIC IMAGING ORDERABLES documented in this encounter Visit Diagnoses Diagnosis Patellar dislocation, left, initial encounter- Primary documented in this encounter Orders Equipment Count Last Ordered Date First Orde red Date CRUTCHES (E0114) 1 03/17/2020 documented in this encounter Care Teams Supervisor Salvage Relationship Specialty Start Date End Date Angelic Silva APRN [address] [place] [address] PCP - General 05/05/16 03/26/20 documented as of this encounter
--- OUTSIDE RECORDS SUMMARY | 2024-01-26 12:53 | XMS_ITS | Encounter Summary ---
Author Organization [facility] Address [address] [place] [address] Care Team Providers Care Vehicle Calibration Engineer Name Role Phone Ricardo Angelicrashaad Gutierrez APRN Primary Care Provider [phone] Encounter Details Date Type Department Care Team (Late st Contact Info) Description 08/15/2019 9:30 EST Group Visit [address] [phone] Group Php, [facility] Adjustment disorder with mixed anxiety and [...] Contact Info) Description 01/31/2024 10:15 EDT Telemedicine [facility] Neurology [address] [address] Med Maldonado MD [address] [place] [address] [address] [place] [phone] 08/31/2024 9:40 EST Appointment Naz Lou [address] [place] [address] documented as of this encounter Visit Diagnoses Diagnosis Adjustment disorder with mixed anxiety and depressed mood- Primary documented in this encounter Care Teams Vehicle Calibration Engineer Relationship Specialty Start Date End Date Angelic Silva APRN [address] [place] [address] PCP - General 05/05/16 03/26/20 documented as of this encounter
--- OUTSIDE RECORDS SUMMARY | 2024-01-26 12:53 | XMS_ITS | Encounter Summary ---
Author Organization [facility] Address [address] [place] [address] Care Team Providers Care Alumni Relations Manager Name Role Phone Ricardo Angelicrashaad Gutierrez APRN Primary Care Provider [phone] [phone] Encounter Details Date Type Department Care Team (Late st Contact Info) Description 08/13/2019 9:30 EST Group Visit [address] [phone] Group Php, [facility] Adjustment disorder with mixed anxiety and [...] Contact Info) Description 01/31/2024 10:15 EDT Telemedicine [facility] Neurology [address] [phone] Med Maldonado MD [address] [place] [address] [address] [place] [phone] 08/31/2024 9:40 EST Appointment Naz Lou [address] [place] [address] documented as of this encounter Visit Diagnoses Diagnosis Adjustment disorder with mixed anxiety and depressed mood- Primary documented in this encounter Care Teams Alumni Relations Manager Relationship Specialty Start Date End Date Angelic Silva APRN [address] [place] [address] PCP - General 05/05/16 03/26/20 documented as of this encounter
--- OUTSIDE RECORDS SUMMARY | 2024-01-26 12:53 | XMS_ITS | Encounter Summary ---
Author Organization [facility] Address [address] [place] [address] Care Team Providers Care Glass Products Inspector Name Role Phone Ricardo Angelicrashaad Gutierrez APRN Primary Care Provider [phone] Encounter Details Date Type Department Care Team (Late st Contact Info) Description 08/12/2019 9:30 EST Group Visit [address] [phone] Group Php, [facility] Adjustment disorder with mixed anxiety and depressed [...] Description 01/31/2024 10:15 EDT Telemedicine [facility] Neurology [address] [address] Med Maldonado MD [address] [place] [address] [address] [place] [phone] 08/31/2024 9:40 EST Appointment Naz Lou [address] [place] [address] documented as of this encounter Visit Diagnoses Diagnosis Adjustment disorder with mixed anxiety and depressed mood- Primary documented in this encounter Care Teams Glass Products Inspector Relationship Specialty Start Date End Date Angelic Silva APRN [address] [place] [address] PCP - General 05/05/16 03/26/20 documented as of this encounter
--- OUTSIDE RECORDS SUMMARY | 2024-01-26 12:53 | XMS_ITS | Encounter Summary ---
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) (Primary Dx); Borderline personality disorder (HCC-CMS) Social History Tobacco Use Types Packs/Day Years [...] Info) Description 01/31/2024 10:15 EDT Telemedicine [facility] Neurology [address] [address] Med Maldonado MD [address] [place] [address] [address] [place] [phone] 08/31/2024 9:40 EST Appointment Naz Perez [address] [address] [place], [place] [address] documented as of this encounter Visit Diagnoses Diagnosis MDD (major depressive disorder), recurrent severe, without psychosis (HCC-CMS)- Primary Major depressive disorder, recurrent episode, severe, without mention of psychotic behavior Borderline personality disorder (HCC-CMS) Borderline personality disorder documented in this encounter Care Teams Tractor Trailer Driver Relationship Specialty Start Date End Date Angelic Silva APRN [address] [place] [address] PCP - General 05/05/16 03/26/20 documented as of this encounter
--- OUTSIDE RECORDS SUMMARY | 2024-01-26 12:53 | XMS_ITS | Encounter Summary ---
Author Organization [facility] Address [address] [place] [address] Care Team Providers Care Instructor Dramatic Arts Name Role Phone Ricardo Angelicrashaad Gutierrez APRN Primary Care Provider +1 [phone] Encounter Details Date Type Department Care Team (Late st Contact Info) Description 08/14/2019 9:30 EST Group Visit [address] [phone] Group Php, [facility] Adjustment disorder with mixed anxiety and depressed [...] EDT Telemedicine [facility] Neurology [address] [address] Med Maldonado MD [address] [place] [address] [address] [place] [phone] 08/31/2024 9:40 EST Appointment Naz Lou [address] [place] [address] documented as of this encounter Visit Diagnoses Diagnosis Adjustment disorder with mixed anxiety and depressed mood- Primary documented in this encounter Care Teams Instructor Dramatic Arts Relationship Specialty Start Date End Date Angelic Silva APRN [address] [place] [address] PCP - General 05/05/16 03/26/20 documented as of this encounter
--- OUTSIDE RECORDS SUMMARY | 2024-01-26 12:53 | XMS_ITS | Encounter Summary ---
Author Organization [facility] Address [address] [place] [address] Care Team Providers Care Telecasting Technician Name Role Phone RicardoAngelic buckley LORE Primary Care Provider [phone] [phone] Encounter Details Date Type Department Care Team (Late st Contact Info) Description 08/30/2019 10:00 EST Group Visit [address] [address] Group Iop, [facility] Borderline personality disorder (HCC-CMS) (Primary Dx) [...] Info) Description 01/31/2024 10:15 EDT Telemedicine [facility] Neurology [address] [phone] Med Maldonado MD [address] [place] [address] [address] [place] [phone] 08/31/2024 9:40 EST Appointment Naz Lou [address] [place] [address] documented as of this encounter Visit Diagnoses Diagnosis Borderline personality disorder ([facility])- Primary Borderline personality disorder documented in this encounter Care Teams Telecasting Technician Relationship Specialty Start Date End Date Angelic Silva APRN [address] [place] [address] PCP - General 05/05/16 03/26/20 documented as of this encounter
--- OUTSIDE RECORDS SUMMARY | 2024-01-26 12:53 | XMS_ITS | Encounter Summary ---
Author Organization [facility] Address [address] [place] [address] Care Team Providers Care Field Recorder Name Role Phone Angelic Silva LORE Primary Care Provider +1 [phone] Reason for Visit * Reason Comments Anxiety Depression Encounter Details Date Type Department Care Team (Late st Contact Info) Description 08/08/2019 10:30 EST Office Visit [address] [address] Loren Kenyon MD [address] [facility] [address] [place] [phone] Adjustment disorder with mixed anxiety and depressed mood (Primary Dx); Borderline personality disorder ([facility]) Social History Tobacco Use Types Packs/Day Years [...] EDT Telemedicine [facility] Neurology [address] [address] Med Maldonado MD 1 [facility], [address] [place] [address] 08/31/2024 9:40 EST Appointment Naz Perez [address] [address] documented as of this encounter Visit Diagnoses Diagnosis Adjustment disorder with mixed anxiety and depressed mood- Primary Borderline personality disorder (HCC-CMS) Borderline personality disorder documented in this encounter Care Teams Field Recorder Relationship Specialty Start Date End Date Angelic Silva APRN [address] [place], [place] [address] PCP - General 05/05/16 03/26/20 documented as of this encounter
--- OUTSIDE RECORDS SUMMARY | 2024-01-26 12:53 | XMS_ITS | Encounter Summary ---
Author Organization [facility] Address [address] [place] [address] Care Team Providers Care Lacquer Sprayer Name Role Phone Angelic Silva LORE Primary Care Provider [phone] Reason for Visit * Reason Comments Anxiety Encounter Details Date Type Department Care Team (Late st Contact Info) Description 08/15/2019 9:30 EST Office Visit [address] [address] Loren Kenyon MD 111 [facility] 4 [place] [phone] Adjustment disorder with mixed anxiety and depressed mood (Primary Dx); Borderline personality disorder ([facility]) Social History Tobacco Use Types Packs/Day Years [...] Description 01/31/2024 10:15 EDT Telemedicine [facility] Neurology [address] [id number] Med Maldonado MD 1 [facility], Level [address] [place] [phone] 08/31/2024 9:40 EST Appointment Naz Perez [address] [address] documented as of this encounter Visit Diagnoses Diagnosis Adjustment disorder with mixed anxiety and depressed mood- Primary Borderline personality disorder (HCC-CMS) Borderline personality disorder documented in this encounter Care Teams Lacquer Sprayer Relationship Specialty Start Date End Date Angelic Silva APRN [address] [place], [place] [address] PCP - General 05/05/16 03/26/20 documented as of this encounter
--- OUTSIDE RECORDS SUMMARY | 2024-01-26 12:53 | XMS_ITS | Encounter Summary ---
Author Organization [facility] Address [address] [place] [address] Care Team Providers Care Slitter Service And Setter Name Role Phone Ricardo Angelicrashaad Gutierrez APRN Primary Care Provider [phone] Reason for Visit * Reason Onset Date Comments Follow-up 08/02/2019 Encounter Details Date Type Department Care Team (Late st Contact Info) Description 08/02/[address] [address] Elliott Curry, [facility] Services [address] [place] [phone] Follow-up Social History Tobacco Use Types [...] Description 01/31/2024 10:15 EDT Telemedicine [facility] Neurology [address] [address] Med Maldonado MD [address] [place] [address] Level [address] [place] [address] 08/31/2024 9:40 EST Appointment Naz Perez [address] [address] documented as of this encounter Visit Diagnoses Not on filedocumented in this encounter Care Teams Slitter Service And Setter Relationship Specialty Start Date End Date Angelic Silva APRN [address] [place], [place] [address] PCP - General 05/05/16 03/26/20 documented as of this encounter
--- OUTSIDE RECORDS SUMMARY | 2024-01-26 12:53 | XMS_ITS | Encounter Summary ---
Author Organization [facility] Address [address] [place] [address] Care Team Providers Care Creative Manager Name Role Phone Ricardo Angelic Brenda LORE Primary Care Provider [phone] Encounter Details Date Type Department Care Team (Late st Contact Info) Description 08/07/2019 9:30 EST Group Visit [address] [phone] Group Php, [facility] Borderline personality disorder (HCC-CMS) (Primary Dx) [...] Description 01/31/2024 10:15 EDT Telemedicine [facility] Neurology [address] [phone] Med Maldonado MD [address] [place] [address] [address] [place] [phone] 08/31/2024 9:40 EST Appointment Naz Lou [address] [place] [address] documented as of this encounter Visit Diagnoses Diagnosis Borderline personality disorder ([facility])- Primary Borderline personality disorder documented in this encounter Care Teams Creative Manager Relationship Specialty Start Date End Date Angelic Silva APRN [address] [place] [address] PCP - General 05/05/16 03/26/20 documented as of this encounter
--- OUTSIDE RECORDS SUMMARY | 2024-01-26 12:53 | XMS_ITS | Encounter Summary ---
Author Organization [facility] Address [address] [place] [address] Care Team Providers Care Rn Operating Room Name Role Phone RicardoKristinaAngelic Brenda LORE Primary Care Provider [phone] [phone] Encounter Details Date Type Department Care Team (Late st Contact Info) Description 08/19/2019 Documentation Visit [address] [phone] Elliott Curry, [facility] Child [facility] Family Services [address] [place] [phone] Social History Tobacco Use Types Packs/Day Years [...] Description 01/31/2024 10:15 EDT Telemedicine [facility] Neurology [address] 499[address] Med Maldonado MD [address] [place] [address] [address] 2 [place] [phone] 08/31/2024 9:40 EST Appointment Naz Perez [phone] [place] [address] documented as of this encounter Visit Diagnoses Not on filedocumented in this encounter Care Teams Rn Operating Room Relationship Specialty Start Date End Date Angelic Silva APRN [address] [place] [address] PCP - General 05/05/16 03/26/20 documented as of this encounter
--- OUTSIDE RECORDS SUMMARY | 2024-01-26 12:54 | XMS_ITS | Encounter Summary ---
Author Organization [facility] Address [address] [place] [address] Care Team Providers Care Live Hanger Name Role Phone Bonita Saldana Primary Care Provider Unavailable Encounter Details Date Type Department Care Team (Late st Contact Info) Description 12/23/2013 Results Only [facility] Laboratory Services - [facility] ([facility] [address] [place] [phone] [address] [phone] Social History Tobacco Use Types Packs/Day Years Used Date Smoking Tobacco: Never Smokeless Tobacco: Never Alcohol Use Standard Drinks/Week Comments No 0 (1 standard drink = 0.6 oz pur e alcohol) Sex and Gender Information Value Date Recorded Sex Assigned at Not on file Gender Identity Female 02/24/2020 22:01 EDT Sexual Orientation Not on file documented as of this encounter Plan of Treatment Upcoming Encounters Date Type Department Care Team (Late st Contact Info) Description 01/31/2024 10:15 EDT Telemedicine [facility] Neurology - S [address] 6200[address] Med Maldonado MD [address] [place] [address], Level [address] [place] [phone] 08/31/2024 9:40 EST Appointment Naz Perez [facility] [address] [place] [address] documented as of this encounter Procedures Procedure Name Priority Date/Time Associated Diagnosis Comments GROUP B STREP PCR Routine 12/23/2013 10: 09 EDT documented in this encounter Results * GROUP B STREPTOCOCCUS MOLECULAR DETECTION (12/23/2013 10:09 EDT) Group B Streptococcus Molecular Detection No Group B beta streptococcal DNA detected by PCR. [facility] 12/23/2013 10:0 9 EDT 12/23/2013 20:04 EDT Rosalie Collier CNM MICROBIOLOGY - GENERAL ORDERABLES Performing Organization Address City/State/[facility] Co de Phone Number [facility] [address] [place] [address] documented in this encounter Visit Diagnoses Not on filedocumented in this encounter Care Teams Live Hanger Relationship Specialty Start Date End Date Bonita Saldana PCP - General 01/31/13 01/15/14 documented as of this encounter
--- OUTSIDE RECORDS SUMMARY | 2024-01-26 12:54 | XMS_ITS | Encounter Summary ---
Author Organization [facility] Address [address] [place] [address] Care Team Providers Care Dentofacial Orthopedics Dentist Name Role Phone None, Provider Primary Care Provider Unavailabl e Encounter Details Date Type Department Care Team (Late st Contact Info) Description 04/13/2015 Phlebotomy Only [facility] - [facility] [address] [place] [address] Can Washer, Outpatient Small fiber neuropathy (Primary Dx) Social History Tobacco Use Types [...] Description 01/31/2024 10:15 EDT Telemedicine [facility] Neurology - S [address] [phone] Med Maldonado MD 1 [facility], Level 2 [place] [phone] 08/31/2024 9:40 EST Appointment Naz Perez [address] [address] documented as of this encounter Procedures Procedure Name Priority Date/Time Associated Diagnosis Comments SS-B (LA) ANTIBODY, IGG Routine 04/13/2015 9:04 EDT Small fiber neuropathy ZZHN SSA ANTIBODIES BY ALONSO Routine 04/13/2015 9:04 EDT Small fiber neuropathy METHYLMALONIC ACID Routine 04/13/2015 9: 04 EDT Small fiber neuropathy SED RATE Routine 04/13/2015 9:04 EDT Small fiber neuropathy RHEUMATOID FACTOR Routine 04/13/2015 9:0 4 EDT Small fiber neuropathy SPEP WITH IMMUNOTYPING Routine 5 9:04 EDT Small fiber neuropathy ANTI NUCLEAR AB (JIE), IFA Routine 04/13/2015 9:04 EDT Small fiber neuropathy HEMOGLOBIN A1C Routine 04/13/2015 9:04 EDT Small fiber neuropathy VITAMIN B12 Routine 04/13/2015 9:04 EDT Small fiber neuropathy documented in this encounter Results * HEMOGLOBIN A1C (04/13/2015 9:04 EDT) Hemoglobin A1C 5.0 % 04/13/2015 12:11 [facility] Comment: Shortened red blood cell survival will decrease Hemoglobin A1C values. Reference Range: <5.7% Normal 5.7-6.4% Increased risk for diabetes =>6.5% Diagnostic for diabetes (if confirmed) The A1c goal for non adults in general is <7%. The A1c goal for selected patients may be significantly lower than 7% if this can be achieved without significant hypoglycemia or other adverse effects of treatment. Est Avg Glucose 97 mg/dl 5 12:11 T [facility] Comment: eAG represents the A1c result expressed as average glucose in mg/dl. Blood specimen (specimen) BLOOD SPECIMEN / Unknown 04/13/2015 9:04 EDT 04/13/2015 10:14 EDT Elliott Ledezma MD CHEMISTRY & BLOOD GAS ORDERABLES Performing Organization Address City/[facility] Co de Phone Number [facility] [address] [place] [address] * VITAMIN B12 (04/13/2015 9:04 EDT) Vitamin B-12 560 211 - 911 pg/ml 04/13/2015 11:51 EDT [facility] Blood specimen (specimen) BLOOD SPECIMEN / Unknown 04/13/2015 9:04 EDT 04/13/2015 10:14 EDT Elliott Ledezma MD CHEMISTRY & BLOOD GAS ORDERABLES Performing Organization Address [facility] Co de Phone Number [facility] [address] [place] [address] * METHYLMALONIC ACID (04/13/2015 9:04 EDT) Pathologist [facility] Methylmalonic Acid 0.13 <=0.40 nmol/mL 04/17/2015 7:59 EDT [facility] Comment: Performed or Referred by: [facility]: [facility], [address] [place] [address], Lab Dir: Tom Nolen III, MD Blood specimen (specimen) BLOOD SPECIMEN / Unknown 04/13/2015 9:04 EDT 04/13/2015 10:14 EDT Elliott Ledezma MD CHEMISTRY & BLOOD GAS ORDERABLES Performing Organization Address City/[facility]/ZIP Co de Phone Number [facility] [address] [place] [address] * SPEP WITH IMMUNOTYPING (04/13/2015 9:04 EDT) Total Protein 7.4 6.3 - 8.2 g/dl 04/13/2015 11:01 EDT [facility] Albumin % 60.5 55.8 - 66.1 % 04/14/2015 14:30 EDT [facility] Alpha-1 % 4.2 2.9 - 4.9 % 04/14/2015 14:30 [facility] Alpha-2 % 8.6 7.1 - 11.8 % 04/14/2015 14:30 [facility] Beta % 13.0 8.4 - 13.1 % 04/14/2015 14:30 [facility] Gamma % 13.7 11.1 - 18.8 % 04/14/2015 14:30 [facility] Comments No apparent monoclonal protein 04/14/2015 14:30 [facility] Comment: on serum electrophoresis. See Pathology Scanned Report in [employer]ISM. Immunotyping, Serum Interpretation : 04/14/2015 15:28 [facility] Comment: Negative for monoclonal immunoglobulins. Interpreted by: Vlad Tanner MD, PhD Reference Range: Negative for monoclonal immunoglobulins. Blood specimen (specimen) BLOOD SPECIMEN / Unknown 04/13/2015 9:04 EDT 04/13/2015 10:14 EDT Elliott Ledezma MD CHEMISTRY & BLOOD GAS ORDERABLES Performing Organization Address City/[facility] Co de Phone Number [facility] [address] [place] [address] * RHEUMATOID FACTOR (04/13/2015 9:04 EDT) Rheumatoid Factor <20 <20 IU/ml 04/13/2015 13:13 T [facility] Blood specimen (specimen) BLOOD SPECIMEN / Unknown 04/13/2015 9:04 EDT 04/13/2015 10:14 EDT Elliott Ledezma MD CHEMISTRY & BLOOD GAS ORDERABLES Performing Organization Address [facility] Co de Phone Number [facility] [address] [place] [address] * SSB ANTIBODIES BY ALONSO (04/13/2015 9:04 EDT) SSB Antibody 1.7 <20 Units 04/14/2015 14:40 T [facility] Comment: Negative: <20 Units Weak Positive: 20 - 29 Units Moderate Positive: 40 - 80 Units Strong Positive: >80 Units The following results were obtained with the [employer] SS-B ALONSO. SS-B values obtained with different manufacturers'assay methods may not be used interchangeably. The magnitude of the reported IgG levels cannot be correlated to an endpoint titer. Blood specimen (specimen) BLOOD SPECIMEN / Unknown 04/13/2015 9:04 EDT 04/13/2015 10:14 EDT Elliott Ledezma MD IMMUNOLOGY AND SE ROLOGY ORDERABLES Performing Organization Address [facility] de Phone Number [facility] [address] [place] [address] * SSA ANTIBODIES BY ALONSO (04/13/2015 9:04 EDT) Pathologist [facility] SSA Antibody 2.6 <20 Units 04/14/2015 14:43 EDT [facility] Comment: Negative: <20 Units Weak Positive: 20 - 29 Units Moderate Positive: 40 - 80 Units Strong Positive: >80 Units The following results were obtained with the [employer] QUANTA Lite SS-A ALONSO. SS-A values obtained with different manufacturers' assay methods may not be used interchangeably. The magnitude of the reported IgG levels cannot be correlated to an endpoint titer. Blood specimen (specimen) BLOOD SPECIMEN / Unknown 04/13/2015 9:04 EDT 04/13/2015 10:14 EDT Elliott Ledezma MD IMMUNOLOGY AND SE TEMOOGY ORDERABLES Performing Organization Address [facility] de Phone Number [facility] [address] [place] [address] * SED. RATE:WESTERGREN (04/13/2015 9:04 EDT) Pathologist [facility] Sed. Rate Westergren 13 0 - 20 mm/hr 04/13/2015 10:23 EDT [facility] Blood specimen (specimen) BLOOD SPECIMEN / Unknown 04/13/2015 9:04 EDT 04/13/2015 10:14 EDT Elliott Ledezma MD HEMATOLOGY & PF4 ORDERABLES Performing Organization Address City/[facility]/ZIP Co de Phone Number [facility] [address] [place] [address] * ANTI NUCLEAR ANTIBODY (04/13/2015 9:04 EDT) Anti Nuclear Ab <40 0 - 40 Dils 04/14/2015 13:31 EDT [facility] Blood specimen (specimen) BLOOD SPECIMEN / Unknown 04/13/2015 9:04 EDT 04/13/2015 10:14 EDT Elliott Ledezma MD IMMUNOLOGY AND SE ROLOGY ORDERABLES Performing Organization Address City/[facility] Co de Phone Number [facility] [address] [place] [address] documented in this encounter Visit Diagnoses Diagnosis Small fiber neuropathy- Primary Unspecified hereditary and idiopathic peripheral neuropathy documented in this encounter Care Teams Dentofacial Orthopedics Dentist Relationship Specialty Start Date End Date None, Provider PCP - General 01/16/14 09/01/15 documented as of this encounter
--- OUTSIDE RECORDS SUMMARY | 2024-01-26 12:54 | XMS_ITS | Encounter Summary ---
Author Organization [facility] Address [address] [place] [address] Care Team Providers Care Advanced Manufacturing Engineer Name Role Phone RicardoAngelic Brenda TORREZ Primary Care Provider [phone] Reason for Visit * Reason Onset Date Comments Appointment Related 05/26/2016 Dizziness qu estionnaire Encounter Details Date Type Department Care Team (Late st Contact Info) Description 05/26/2016 Telephone [facility] [address] [place] [address] Aileen Mendez LPN Appointment Related (Dizziness questionnaire) Social History Tobacco Use Types Packs/Day Years Used Date Smoking Tobacco: Never Smokeless Tobacco: Never Alcohol Use Standard Drinks/Week Comments No 0 (1 standard drink = 0.6 oz pur e alcohol) Sex and Gender Information Value Date Recorded Sex Assigned at Not on file Gender Identity Female 02/24/2020 22:01 EDT Sexual Orientation Not on file documented as of this encounter Miscellaneous Notes * Telephone Encounter - Aileen Mendez LPN - 05/26/2016 1022 EST Contacted patient to complete dizziness questionnaire to aid in triaging scheduling appointment forpatient. Questionnaire completed and delivered to triage nurse Sarah Douglas RN. documented in this encounter Plan of Treatment Upcoming Encounters Date Type Department Care Team (Late st Contact Info) Description 01/31/2024 10:15 EDT Telemedicine [facility] Neurology - [address] [place] [address] [place], [place] [address] Med Maldonado MD [address] [place] [address], Level 2 [place] [phone] 08/31/2024 9:40 EST Appointment Naz Perez [address] [phone] documented as of this encounter Visit Diagnoses Not on filedocumented in this encounter Care Teams Advanced Manufacturing Engineer Relationship Specialty Start Date End Date Angelic Silva APRN [address] [place] [address] PCP - General 05/05/16 03/26/20 documented as of this encounter
--- OUTSIDE RECORDS SUMMARY | 2024-01-26 12:54 | XMS_ITS | Encounter Summary ---
Author Organization [facility] Address [address] [place] [address] Care Team Providers Care Collection Administrator Name Role Phone None, Provider Primary Care Provider Unavailabl e Reason for Referral * (Routine) - Closed Specialty Diagnoses / Procedures Referred By Tito hernandez Referred To Contact Diagnoses Small fiber neuropathy Procedures EMG NEEDLE EXAM Elliott Ledezma MD [address] [place] [phone] Referral ID Status Reason Start Date Expiration Date Visits Re quested Visits Authorized [id number] Closed 04/13/2015 1 1 Reason for Visit * Reason Comments Follow-up old flaring symptoms Encounter Details Date Type Department Care Team ([facility] st Contact Info) Description 04/13/2015 8:[address] [facility] Neurology - S [address] [address] Elliott Ledezma MD [address] [place] [phone] Small fiber neuropathy (Primary Dx) Social History [...] Sign Reading Time Taken Comments Blood Pressure 124/76 04/13/2015 08 EDT Pulse 70 04/13/2015806 EDT Temperature - - Respiratory Rate 14 04/13/2015806 EDT Oxygen Saturation - - Inhaled Oxygen Concentration - - Weight 76.2 kg (168 lb) 04/13/2015806 EDT Height 172.7 cm (5' 7.99) 04/13/2015806 EDT Body Mass Index 25.55 04/13/2015806 EDT documented in this encounter Discharge Diagnoses Diagnosis G62.9 Polyneuropathy, unspecified-G62.9[ICD-10-CM] documented in this encounter Ordered Prescriptions Prescription Sig Dispensed Refills Start Date End Da te amitriptyline (ELAVIL) 10 mg tabletIndications:Small fiber neuropathy Take 1 pill bedtime for 1 week, then increase 2 pills bedtime. 60 Tab 11 04/13/2015 09/07/2015 documented in this encounter Progress Notes * Pancho Parks MD - 04/14/2015 0856 EDT [facility] NEUROLOGY NEW PATIENT EVALUATION - 04/13/2015 PROGRAM: Neuromuscular clinic. SUMMARY: New patient followup. PROBLEM: Paresthesias. HISTORY OF PRESENT ILLNESS: Ms Tellez is a pleasant 34-year-old right-handed woman who presents for initial evaluation to neurology outpatient clinic for persistent pins and needles sensations in her feet. In fact, she was previously seen by neurology, albeit in 2012 for the same issue. She was at the time and it was thought perhaps that had something to do with her symptoms as well asEMG nerve conduction study and skin biopsy were all negative for confirmed pathophysiology. She hassince delivered her child and completed . She reports her symptoms have progressed since her last visit. She reports the pins and needles in her feet is worse in the morning, can bring me to the ground. Over the last 6 months, it has become more intense. She rates it at 10/10 in intensity, can cause her to limp and need support from furniture or the farrell when she first gets up in the morning. The sensation location is from her toes up to her knees bilaterally. It occurs after standing for long periods as well. It is worse when wearing tight shoes. She has some level of discomfort all day at a lower intensity of 1/10. She does endorse occasional tripping. Of note, she has noticed it in her hands, also, albeit less intense for the last 6 months. She can evoke these symptoms by making a fist. The tingling/pins and needles sensation is occurring equally in all fingers. She denies any early satiety, dry mouth, dry eyes or constipation. She does not take any medication forthis issue. MEDICATIONS: Multivitamin, fish oil, glucosamine. REVIEW OF SYSTEMS: 10 system review performed and is negative other than mentioned in history of present illness. PAST MEDICAL HISTORY: Patellar instability, chickenpox, gestational hypertension, numbness and tingling of foot. SURGICAL HISTORY: Right knee surgery, colposcopy, wisdom tooth extraction. SOCIAL HISTORY: Denies alcohol and tobacco use, 2 kids healthy, . ALLERGIES: ENVIRONMENTAL. VITALS: Pulse 70, blood pressure 124/76, respiration is 14. EXAM: General appearance: Alert, no distress. Skin: Color, temperature and turgor normal. No rashesor lesions. Normocephalic, atraumatic. Wears glasses. Neck symmetrical. Trachea midline. OP clear. Mucous membranes moist. Lungs clear to auscultation. Normal work of breathing. Heart rate regular. No murmur. Extremities atraumatic. No cyanosis or edema. Abdomen soft, nontender. NEUROLOGICAL EXAM: Mental status: Speech is fluent without dysarthria. The patient is alert and oriented to name, place and date. Attention, concentration, recall and fund of knowledge are all intact. Cranial nerves: Pupils are equal, round and reactive to light. Visual valenzuela are full. Extraocular movements are intact without nystagmus. Facial sensation is normal. Face is symmetrical. Palate elevates in the midline. Hearing is intact to finger rub at 4 inches. Shoulder shrug is full. Motor: There is normal muscle bulk and tone. There is no atrophy or fasciculations noted. No tenderness. Manual muscle testing reveals full strength in all proximal and distal muscles of the upper and lower extremities bilaterally. No pronator drift. Reflexes: 2+ at biceps, triceps, patellar and Achilles bilaterally. Plantar flexion bilaterally. Sensory: Loss of pinprick sensation on the dorsum of both feet to the ankle and in the fingers bilaterally. Loss of pinprick in the midline abdominal area, decreased temperature sensation she estimates 75% in both feet bilaterally, decreased vibratory sense at the hallux bilaterally. Otherwise, light touch, pinprick, temperature, vibration and joint position sense are intact. Coordination: No dysmetria on ninkgy-za-[id number] testing. Romberg sign is absent. Rapid alternating movements intact. Gait and stance: Casual gait is normal, narrow-based; heel, toe and tandem walking are all normal. ASSESSMENT: Sensory Polyneuropathy: This is a 34-year-old woman who has had a progressive course of paresthesias in her feet now affecting her hand consistent with a chronic, progressive length- dependent sensory neuropathy. We discussed the exam and workup and entertained some options for treatment with the caveat that we need to know the exact etiology of her symptoms before proceeding with treatment. We outlined some of the labs and tests, see below, as well as suggested starting a medication. PLAN: Nerve conduction study EMG. Consider imaging of the brain or C-spine if no definitive evidence of neuropathy Labs today. Serum JIE, SPEP, UPEP, rheumatoid factor, SSA, SSB, sed rate, B12, MMA, A1c. Amitriptyline 10 mg nightly for 1 week, then increase to 20 mg nightly. Follow up in 2 to 3 months after the EMG studies are done. The patient's history, labs, clinical imaging, clinical impression and plan discussed with the neurology attending. Pancho Parks MD 07 56 AM - Pancho Parks MD en Dictation ID: [id number] Attestation: I saw and examined the patient 04/13/15 I agree with the resident's/fellow's findings and plans as documented except as below. Patient with continued sensory symptoms and neuropathic pain. Exam suggests peripheral neuropathy. Will repeat work-up for small fiber predominant polyneuropathy as above and bring back for EMG to help define type of neuropathy. If above work-up doesn't reveal source of symptoms, will consider neuroimaging of the brain and spinal cord. Elliott Ledezma MD 04/14/2015 15:12 Tester Regulator of Neurology Neurology Attending Physician ABPN Board Certified, Neurology and Neuromuscular Medicine ABEM Board Certified, EMG * Pancho Parks MD - 04/14/2015 0756 EDT Progress note dictated, see Prism. documented in this encounter Miscellaneous Notes * Addendum Note - Elliott Ledezma MD - 04/14/2015 1514 EDTAddended by: ELLIOTT LEDEZMA on: 04/14/2015 15:14 Modules accepted: Level of Service documented in this encounter Plan of Treatment Upcoming Encounters Date Type Department Care Team (Late st Contact Info) Description 01/31/2024 10:[address] [facility] Neurology - [address] [phone] Med Maldonado MD [address] [place] [address] 2 [place] [phone] 08/31/2024 9:40 EST Appointment Naz Perez [address] [address] Scheduled Orders Name Type Priority Associated Diagnoses Orde r Schedule EMG NEEDLE EXAM Neurology Routine Small fiber neuropathy Ordered: 04/13/2015 documented as of this encounter Procedures Procedure Name Priority Date/Time Associated Diagnosis Comments PATHOLOGY - SCANNED 04/14/2015 12:03 EDT documented in this encounter Results * PATHOLOGY - SCANNED (04/14/2015 12:03 EDT) 04/14/2015 12:0 3 EDT Scan 2 Cane Weigher Helper LAB INFO SERVICE AN D SUPPORT & PHONE RESULT * HEMOGLOBIN A1C (04/13/2015 9:04 EDT) Hemoglobin A1C 5.0 % 04/13/2015 12:11 EDT [facility] Comment: Shortened red blood cell [...] Est Avg Glucose 97 mg/dl 5 12:11 EDT [facility] Comment: eAG represents the A1c result expressed as average glucose in mg/dl. Blood specimen (specimen) BLOOD SPECIMEN / Unknown 04/13/2015 9:04 EDT 04/13/2015 10:14 EDT Elliott Ledezma MD CHEMISTRY & BLOOD GAS ORDERABLES Performing Organization Address City/[facility] Co de Phone Number [facility] [address] [place] [address] * VITAMIN B12 (04/13/2015 9:04 EDT) Vitamin B-12 560 211 - 911 pg/ml 04/13/2015 11:51 EDT [facility] Blood specimen (specimen) BLOOD SPECIMEN / Unknown 04/13/2015 9:04 EDT 04/13/2015 10:14 EDT Elliott Ledezma MD CHEMISTRY & BLOOD GAS ORDERABLES Performing Organization Address City/[facility] Co de Phone Number [facility] [address] [place] [address] * METHYLMALONIC ACID (04/13/2015 9:04 EDT) Methylmalonic Acid 0.13 <=0.40 nmol/mL 04/17/2015 7:59 EDT [facility] Comment: Performed or Referred by: [facility]: [facility], [address] [place] [id number], Lab Dir: Tom Nolen III, MD Blood specimen (specimen) BLOOD SPECIMEN / Unknown 04/13/2015 9:04 EDT 04/13/2015 10:14 EDT Elliott Ledezma MD CHEMISTRY & BLOOD GAS ORDERABLES Performing Organization Address City/[facility]/ZIP Co de Phone Number [facility] [address] [place] [address] * SPEP WITH IMMUNOTYPING (04/13/2015 9:04 EDT) Total Protein 7.4 6.3 - 8.2 g/dl 04/13/2015 11:01 EDT [facility] Albumin % 60.5 55.8 - 66.1 % 04/14/2015 14:30 EDT [facility] Alpha-1 % 4.2 2.9 - 4.9 % 04/14/2015 14:30 T [facility] Alpha-2 % 8.6 7.1 - 11.8 % 04/14/2015 14:30 T [facility] Beta % 13.0 8.4 - 13.1 % 04/14/2015 14:30 T [facility] Gamma % 13.7 11.1 - 18.8 % 04/14/2015 14:30 T [facility] Comments No apparent monoclonal protein 04/14/2015 14:30 T [facility] Comment: on serum electrophoresis. See Pathology Scanned Report in PRISM. Immunotyping, Serum Interpretation : 04/14/2015 15:28 T [facility] Comment: Negative for monoclonal immunoglobulins. Interpreted by: Vlad Tanner MD, PhD Reference Range: Negative for monoclonal immunoglobulins. Blood specimen (specimen) BLOOD SPECIMEN / Unknown 04/13/2015 9:04 EDT 04/13/2015 10:14 EDT Elliott Ledezma MD CHEMISTRY & BLOOD GAS ORDERABLES Performing Organization Address City/[facility]/ZIP Co de Phone Number [facility] [address] [place] [address] * RHEUMATOID FACTOR (04/13/2015 9:04 EDT) Rheumatoid Factor <20 <20 IU/ml 04/13/2015 13:13 EDT [facility] Blood specimen (specimen) BLOOD SPECIMEN / Unknown 04/13/2015 9:04 EDT 04/13/2015 10:14 EDT Elliott Ledezma MD CHEMISTRY & BLOOD GAS ORDERABLES Performing Organization Address [facility] de Phone Number [facility] [address] [place] [address] * SSB ANTIBODIES BY ALONSO (04/13/2015 9:04 EDT) SSB Antibody 1.7 <20 Units 04/14/2015 14:40 EDT [facility] Comment: Negative: <20 Units [...] AND SE ROLOGY ORDERABLES Performing Organization Address [facility] de Phone Number [facility] [address] [place] [address] * SSA ANTIBODIES BY ALONSO (04/13/2015 9:04 EDT) SSA Antibody 2.6 <20 Units 04/14/2015 14:43 EDT [facility] Comment: Negative: <20 Units [...] 04/13/2015 9:04 EDT 04/13/2015 10:14 EDT Elliott Ledzema MD IMMUNOLOGY AND SE ROLOGY ORDERABLES Performing Organization Address City/[facility]/ZIP Co de Phone Number [facility] [address] [place] [address] * SED. RATE:WESTERGREN (04/13/2015 9:04 EDT) Sed. Rate Westergren 13 0 - 20 mm/hr 04/13/2015 10:23 EDT [facility] Blood specimen (specimen) BLOOD SPECIMEN / Unknown 04/13/2015 9:04 EDT 04/13/2015 10:14 EDT Elliott Ledezma MD HEMATOLOGY & PF4 ORDERABLES Performing Organization Address [facility] Co de Phone Number [facility] [address] [place] [address] * ANTI NUCLEAR ANTIBODY (04/13/2015 9:04 EDT) Anti Nuclear Ab <40 0 - 40 Dils 04/14/2015 13:31 EDT [facility] Blood specimen (specimen) BLOOD SPECIMEN / Unknown 04/13/2015 9:04 EDT 04/13/2015 10:14 EDT Elliott Ledezma MD IMMUNOLOGY AND SE TEMOOGY ORDERABLES Performing Organization Address City/[facility] Co de Phone Number [facility] [address] [place] [address] documented in this encounter Visit Diagnoses Diagnosis Small fiber neuropathy- Primary Unspecified hereditary and idiopathic peripheral neuropathy documented in this encounter Care Teams Collection Administrator Relationship Specialty Start Date End Date None, Provider PCP - General 01/16/14 09/01/15 documented as of this encounter
--- OUTSIDE RECORDS SUMMARY | 2024-01-26 12:54 | XMS_ITS | Encounter Summary ---
Author Organization [facility] Address [address] [place] [address] Care Team Providers Care Animal Husbandry Teacher Name Role Phone Angelic Silva LORE Primary Care Provider [phone] Encounter Details Date Type Department Care Team (Late st Contact Info) Description 06/29/2018 Historical Results Only [facility] Radiology Results [address] [place] [address] Luke Ramirez MD Social History Tobacco Use Types Packs/Day Years [...] [facility] Neurology - [address] [phone] Med Maldonado MD [address] [place] [address], Level [address] [place] [phone] 08/31/2024 9:40 EST Appointment Naz Perez [address] [address] documented as of this encounter Procedures Procedure Name Priority Date/Time Associated Diagnosis Comments XR HIP LEFT 2 VIEWS W/ PELVIS 06/29/2018 16:44 EST documented in this encounter Results * XR HIP LEFT 2 VIEWS W/ PELVIS (06/29/2018 16:44 EST) Anatomical Region Laterality Modality Lower Extremities Other 06/29/2018 16:4 4 EST Narrative 06/29/2018 16:44 EST ? EXAM: RADIOLOGY/HIP LEFT 2 VIEWS W/ PELVI EX. D/ (1626) ? CLINICAL INFORMATION: ? Fall down 4 steps, left hip pain/no shortening ? EXAM: ?XR Left Hip with Pelvis when Performed, 2 or 3 Views ? EXAM DATE/TIME: ?06/29/2018 3:46 PM ? CLINICAL HISTORY: ?37 years old, female; Pain; Hip pain; Left hip; Additional ? info: Fall down 4 steps, left hip pain/no shortening ? TECHNIQUE: ?XR Left hip with pelvis when performed, 2 or 3 views ? COMPARISON: ?No relevant prior studies available. ? FINDINGS: ?Bones/joints: ??Moderate to severe retained feces. ?Soft tissues: Normal. ?Organs: ??There is an IUD within or over the region of the ? uterus. ? IMPRESSION: ?No acute findings. ? If pain persists, CT ??may be helpful to rule out occult ? pathology if clinically indicated. ? REPORT SIGNED IN OTHER VENDOR SYSTEM 06/29/2018 ?Reported By: Elliott Perez MD ? CC: ? Transcribed Date/Time: 06/29/2018 (911) ? Fleet Maintenance Foreman: ? Printed Date/Time: 12/30/2018 (1365) ? PAGE 1 ? Signed Report ? Procedure Note Elliott Perez MD - 05/16/2019 EXAM: RADIOLOGY/HIP LEFT 2 VIEWS W/ PELVI EX. D/ (1626) CLINICAL INFORMATION: Fall down 4 steps, left hip pain/no shortening EXAM: XR Left Hip with Pelvis when Performed, 2 or 3 Views EXAM DATE/TIME: 06/29/2018 3:46 PM CLINICAL HISTORY: 37 years old, female; Pain; Hip pain; Left hip; Additional info: Fall down 4 steps, left hip pain/no shortening TECHNIQUE: XR Left hip with pelvis when performed, 2 or 3 views COMPARISON: No relevant prior studies available. FINDINGS: Bones/joints: Moderate to severe retained feces. Soft tissues: Normal. Organs: There is an IUD within or over the region of the uterus. IMPRESSION: No acute findings. If pain persists, CT may be helpful to rule out occult pathology if clinically indicated. REPORT SIGNED IN OTHER VENDOR SYSTEM 06/29/2018 Reported By: Elliott Perez MD CC: Transcribed Date/Time: 06/29/2018 (854) Fleet Maintenance Foreman: Printed Date/Time: 12/30/2018 (7440) PAGE 1 Signed Report Luke Ramirez MD IMG DIAGNOSTIC IMAGI NG ORDERABLES documented in this encounter Visit Diagnoses Not on filedocumented in this encounter Care Teams Animal Husbandry Teacher Relationship Specialty Start Date End Date Angelic Silva APRN [address] [place] [address] PCP - General 05/05/16 03/26/20 documented as of this encounter
--- OUTSIDE RECORDS SUMMARY | 2024-01-26 12:54 | XMS_ITS | Encounter Summary ---
Author Organization [facility] Address [address] [place] [address] Care Team Providers Care Treating Engineer Helper Name Role Phone Bonita Saldana Primary Care Provider Unavailable Encounter Details Date Type Department Care Team (Latest Contact Info) Description 12/30/2013 7:00 EDT - 12/30/2013 7:02 EDT Hospital Encounter [facility] - [address] [address] Nesha Parada MD [address] [place] [phone] Discharge Disposition: Home or Self Care Social [...] on file documented as of this encounter Discharge Diagnoses Diagnosis V22.1 SUPERVIS OTHER NORMAL PREG[ICD-9-CM] documented in this encounter Medications at Time of Discharge Medication Sig Dispensed Refills Start Date End Date acetaminophen (TYLENOL) 650 mg/20.3 mL solution Take 20.3 mL by mouth every 6 hours as needed for Pain. 03/05/2010 01/02/2014 ibuprofen (ADVIL;MOTRIN) 100 mg/5 mL suspension Take 20 mL by mouth every 6 hours as needed for Pain. 03/05/2010 01/09/2014 multivitamin (FLINTSTONES COMPLETE) chewable tablet Take 1 Tab by mouth daily. 01/09/2014 nortriptyline (PAMELOR) 10 mg capsule Take 10mg at bedtime for 2 weeks then increase to 20mg at bedtime 60 Cap 11 02/01/2013 01/02/2014 documented as of this encounter Discharge Disposition Disposition Code Departure Means Destination Home or Self Care documented in this encounter Plan of Treatment Upcoming Encounters Date Type Department Care Team (Late st Contact Info) Description 01/31/2024 10:15 EDT Telemedicine [facility] Neurology - S [address] [phone] Med Maldonado MD [address] [place] [address], Level [address] [place] [phone] 08/31/2024 9:40 EST Appointment Naz Perez [address] [phone] documented as of this encounter Visit Diagnoses Not on filedocumented in this encounter Care Teams Treating Engineer Helper Relationship Specialty Start Date End Date Bonita Saldana PCP - General 01/31/13 01/15/14 documented as of this encounter
--- OUTSIDE RECORDS SUMMARY | 2024-01-26 12:54 | XMS_ITS | Encounter Summary ---
Author Organization [facility] Address [address] [place] [address] Care Team Providers Care Coil Cutter Name Role Phone Bonita Saldana Primary Care Provider Unavailable Encounter Details Date Type Department Care Team (Latest Contact Info) Description 12/23/2013 12:22 EDT - 12/23/2013 12:25 EDT Hospital Encounter [address] [address] Rosalie Collier, [address] [phone] Discharge Disposition: Home or Self Care [...] Contact Info) Description 01/31/2024 10:15 EDT Telemedicine [facility] Neurology - S [address] [phone] Med Maldonado MD [address] [place] [address], Level [address] [place] [phone] 08/31/2024 9:40 EST Appointment Naz Perez [address] [phone] documented as of this encounter Visit Diagnoses Not on filedocumented in this encounter Care Teams Coil Cutter Relationship Specialty Start Date End Date Bonita Saldana PCP - General 01/31/13 01/15/14 documented as of this encounter
--- OUTSIDE RECORDS SUMMARY | 2024-01-26 12:54 | XMS_ITS | Encounter Summary ---
Author Organization [facility] Address [address] [place] [address] Care Team Providers Care Short Haul Driver Name Role Phone Angelic Silva APRN Primary Care Provider [phone] Reason for Visit * Reason Comments Depression Anxiety * Consult (Routine) - Closed Specialty Diagnoses / Procedures Referred By Contac t Referred To Contact Psychiatry Diagnoses Major depressive disorder, recurrent severe without psychotic features (HCC-CMS) Angelic Silva APRN [address] [place] [address] [place] [address] [address] [place] [phone] Referral ID Status Reason Start Date Expiration Date Visits Re quested Visits Authorized [id number] Closed 1 1 Encounter Details Date Type Department Care Team (Late st Contact Info) Description 07/31/2019 12:45 EST Office Visit [address] [address] Kushal Esparza LICSW 1 [facility] [address] [place] [phone] Major depressive disorder, recurrent episode, severe with mixed features (HCC-CMS) (Primary Dx); Anxiety disorder, unspecified type Social History Tobacco Use Types Packs/Day Years [...] Contact Info) Description 01/31/2024 10:15 EDT Telemedicine [facility] Neurology - [address] [place] [address] [place] [address] Med Maldonado MD [address] [place] [address], Level [address] [place] [phone] 08/31/2024 9:40 EST Appointment Naz Perez [address] [phone] documented as of this encounter Visit Diagnoses Diagnosis Major depressive disorder, recurrent episode, severe with mixed features ([facility]-CMS)- Primary Anxiety disorder, unspecified type documented in this encounter Care Teams Short Haul Driver Relationship Specialty Start Date End Date Angelic Silva APRN [address] [place], [place] [phone] PCP - General 05/05/16 03/26/20 documented as of this encounter
--- OUTSIDE RECORDS SUMMARY | 2024-01-26 12:54 | XMS_ITS | Encounter Summary ---
Author Organization [facility] Address [address] [place] [address] Care Team Providers Care Tow Operator Name Role Phone Angelic Silva APRN Primary Care Provider [phone] Reason for Visit * Reason Onset Date Comments Appointment Related 05/17/2016 Medications Refill 05/17/2016 Encounter Details Date Type Department Care Team (Late st Contact Info) Description 05/17/2016 Telephone [facility] Neurology - [address] [id number] Elliott Ledezma MD [address] [place] [address] [address] [place] [id number] Appointment Related; Medications Refill Social History Tobacco Use Types Packs/Day Years [...] encounter Miscellaneous Notes * Telephone Encounter - Louisa Reyna RN - 05/17/2016 1122 EST RX for Wrist braces Faxed to [phone]. * Telephone Encounter - Laurita Monae - 05/17/2016 1104 EST Yolette called back to provide a fax # [phone]. She said this is for the script for the braces * Telephone Encounter - Louisa Reyna RN - 05/17/2016 0951 EST TC to Pt. ASking for sooner MRI, scheduled for 06/04/17. Cannot return to work until after MRI is done. Has run out of sick days. Asking if MRI can be scheduled sooner at [facility] or [facility]. Even [place]( Lives [place] outside of [facility]. * Telephone Encounter - Vane Schrader - 05/17/2016 0905 EST Yolette calling today regarding upcoming MRI appt. Was hoping for something sooner maybe at another facility closer to home. Please call documented in this encounter Plan of Treatment Upcoming Encounters Date Type Department Care Team (Late st Contact Info) Description 01/31/2024 10:15 EDT Telemedicine [facility] Neurology - [address] [address] Med Maldonado MD [address] [place] [address], [address] [place] [phone] 08/31/2024 9:40 EST Appointment Naz Perez [address] [address] documented as of this encounter Visit Diagnoses Not on filedocumented in this encounter Care Teams Tow Operator Relationship Specialty Start Date End Date Angelic Silva APRN [address] [place], [place] [id number] PCP - General 05/05/16 03/26/20 documented as of this encounter
--- OUTSIDE RECORDS SUMMARY | 2024-01-26 12:54 | XMS_ITS | Encounter Summary ---
Author Organization [facility] Address [address] [place] [address] Care Team Providers Care Diesel Locomotive Engineer Name Role Phone Bonita Saldana Primary Care Provider Unavailable Reason for Referral * (Routine) - Closed Specialty Diagnoses / Procedures Referred By Tito hernandez Referred To Contact Pippa Hernandez MD [address] [place] [address] Referral ID Status Reason Start Date Expiration Date V isits Requested Visits Authorized [id number] Closed Specialty Services Required 01/09/2014 1 1 Reason for Visit * Reason Comments Scheduled Induction Encounter Details Date Type Department Care Team (Latest Contact Info) Description 01/07/2014 11:40 EDT - 01/09/2014 12:[address] [facility] Mother/Baby [address], [place] [id number] Lala Bettencourt MD [address] [place] [phone] Nesha Parada MD [address] [place] [phone] Supervision of normal subsequent (Primary Dx) Discharge Disposition: Home or Self [...] Sign Reading Time Taken Comments Blood Pressure 135/82 01/09/2014721 EDT Pulse 74 01/09/2014721 EDT Temperature 37 ??C (98.6 ??F) 01/09/2014721 EDT Respiratory Rate 16 01/09/2014721 EDT Oxygen Saturation 99% 01/09/2014721 EDT Inhaled Oxygen Concentration - - Weight - - Height - - Body Mass Index - - documented in this encounter Discharge Summaries * Pippa Abad MD - 01/07/20142030 EDT Department of CIVIL TECHNICIAN 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 . Maternal Name: Yolette Tellez : 1980 Attending: Tal Admission: 01/07/2014 Discharge: 01/09/2014 Reason for Admission: 33 y/o 2 para 1001 at 38+1/7 weeks gestation. [place]. PAST HISTORY: Disorders diagnosed prior to current Medical Non-Timber Hewer Surgeries: Other Comments: Knee surgery Aug, dental surgery Gynecological Sexually Transmitted Diseases: None; Comments: h/o abnormal Pap 10 years ago, repap WNL, last 2011 WNL Obstetrical No significant history CURRENT HISTORY (HPI): Disorders diagnosed during current Medical Substance Abuse: None; Smoking: None; Sexually Transmitted Diseases: None Obstetrical None Medications during current : None Maternal Labs: A+; Antibody screen: Neg; Rubella titer: Immune; Syphilis Screening: Neg; Gonorrhea Screening: Not Done; Chlamydia Screening: Not Done; Hepatitis B screen: Neg; Hepatitis C screen: Neg; HIV: Neg; 1hr Glucose: Normal LABOR INFORMATION Labor Onset: Induced; Method: AROM, Oxytocin; Delivery Indication: Hypertensive disorder of ; Normal Labor Curve GBS Status: Negative; GBS Prophylaxis: None Labor Analgesia: None; Labor & Delivery Medications: Post Oxytocin VTX; OA Continuous External FHRM; FHR Pattern: Normal Amniotic Fluid Color: Clear; Duration Rupture of Membranes: <12 DELIVERY INFORMATION Spontaneous Vaginal Delivery; Episiotomy: None; Lacerations: None; EBL: < 500 Placenta: Delivery Method: Spontaneous; Configuration: Normal Labor and Delivery Complications and/or Procedures: None INFORMATION Weight: 3567 grams Sex: Female Delivery Date: 01/07/2014 Delivery Time: 1936 Apgars: 81 , 95 Comments: True knot x 2 : uncomplicated Additional Comments: none Diet Activity: regular, as tolerated, nothing per vagina X6w Discharge Medications / Dosage: tylenol, ibuprofen, colace Other Problems / Discharge Diagnoses Follow-Up Plan for each Problem: Contraception discussed, willdiscuss at PPV. Pt verbalized understanding of S/Sx of post- depression and plan if sx occur. Condition at Discharge: good Discharge Disposition: [X] Home documented in this encounter Discharge Instructions * Discharge Instr - Other Orders* Pippa Abad MD - 01/09/2014 11:53 EDT Diet: Regular Activity: Nothing in vagina for 6 weeks. (No tampons, no douches, no intercourse) You may resume work in 6 weeks, unless instructed differently by your provider. Skin/Wound Care: Not applicable Bathing: No restrictions Control: It is very important for your health to avoid a short interval . It is important to realized that you can still become while . There are many reversible options available for contraception. These include: Barrier protection (condom/diaphragm), oral contraception ( control pills), control patch, vaginal ring (Nuvaring), intrauterine device (IUD), implantable device (Implanon) and Depo-Provera (the shot). Some of these options are available to you now; some of them are only available starting at your visit, usually scheduled about six weeks from your delivery. There are also permanent options for contraception, including tubal occlusion (Essure) and tubal ligation. No control option protects against sexually transmitted infection. Pending Results: Not applicable Symptoms to Call Your Doctor About: Abdominal pain different from the cramping or afterpains following the Foul smelling vaginal discharge Pain or redness in your breasts, excessive nipple soreness or problems with breast feeding. Please notify your doctor or intelligent systems engineer if you feel overwhelmingly sad, guilty, angry, or depressed, as these might be symptoms of post- depression, which can be treated. Redness, swelling or drainage from wound Temperature greater than 100.5 degrees F (38.1 degrees C) Vaginal bleeding heavier than a period, soaking greater than 1 pad per hour or a return of heavy bleeding after it has slowed down Appointments: See your decontamination technician in 2-6 weeks. Please call for an appointment. documented in this encounter Medications at Time of Discharge Medication Sig Dispensed Refills Start Date End Date ibuprofen (MOTRIN) 400 mg tablet Take 1 Tab by mouth every 4 hours as needed for Pain. 01/09/2014 acetaminophen (TYLENOL) 325 mg tablet Take 2 Tabs by mouth as needed for Pain (). 01/02/2014 10/18/2021 docusate sodium (COLACE) 100 mg capsule Take 1 Cap by mouth 2 times daily as needed for Constipation. 01/09/2014 07/31/2019 ferrous sulfate 324 mg (65 mg iron) tablet,delayed release (DR/EC) Take 324 mg by mouth daily with breakfast. 09/07/2015 lansinoh HPA lanolin Use as needed for breast feeding. 01/09/2014 09/07/2015 multivitamin vit-iron fumarate-FA (STUARTNATAL) 27 mg iron- 1 mg tablet tablet Take 1 Tab by mouth daily. 01/09/2014 09/07/2015 documented as of this encounter Ordered Prescriptions Prescription Sig Dispensed Refills Start Date End Da te ibuprofen (MOTRIN) 400 mg tablet Take 1 Tab by mouth every 4 hours as needed for Pain. 01/09/2014 multivitamin vit-iron fumarate-FA (STUARTNATAL) 27 mg iron- 1 mg tablet tablet Take 1 Tab by mouth daily. 01/09/2014 09/07/2015 lansinoh HPA lanolin Use as needed for breast feeding. 01/09/2014 09/07/2015 docusate sodium (COLACE) 100 mg capsule Take 1 Cap by mouth 2 times daily as needed for Constipation. 01/09/2014 07/31/2019 documented in this encounter Discharge Disposition Disposition Code Departure Means Destination Home or Self Care documented in this encounter Progress Notes * Rosalie Collier CNM - 01/09/2014 0540 EDT Progress Note Chief Complaint: s/p Day # 2 S: Yolette is feeling well this morning, sleepy. She noted minimal pain. She has been ambulating to bathroom. Tolerating a regular diet, no N/V. She is breast- feeding; good latch, no concerns. Voiding well. Lochia decreasing, mild LE swelling mild. No F/C, RUBALCAVA, vision changes, CP/SOB, epigastric/RUQ pain. She had a daughter, Paula Pereira. MEDS Current Facility-Administered Medications Medication Route Frequency ??? acetaminophen (TYLENOL) tablet 325-650 mg oral Q4H PRN ??? docusate sodium (COLACE) capsule 100 mg oral BID PRN ??? ibuprofen (MOTRIN) tablet 400 mg oral Q4H PRN ??? lactated ringers (LR) infusion intravenous CONTINUOUS ??? lansinoh HPA lanolin topical PRN ??? multivitamin vit-iron fumarate-FA (STUARTNATAL) 27 mg iron- 1 mg tablet 1 Tab oral DAILY ??? varicella vaccine live (PF) (VARIVAX) 1,350 unit/0.5 mL subcutaneous injection 0.5 mL subcutaneous ONCE Physical Exam: BP 113/64 Pulse 65 Temp(Src) 37 ??C (98.6 ??F) (Temporal) Resp 16 SpO2 97% Intake/Output Summary (Last 24 hours) at 01/09/14 0540 Last data filed at 01/08/14 0650 Gross per 24 hour Intake 0 ml Output 400 ml Net -400 ml General: Patient is in no acute distress Cardiovascular: RRR, S1/S2, -m/g/r Respiratory: No respiratory distress, CTAB, -w/r/r Abdomen: Non-distended, not tender, firm fundus at 3cm below the umbilicus Extremities: trace lower extremity edema Impression: Yolette Tellez is a 33 y.o. G2 now P2002 s/p vaginal delivery following IOL for gestational hypertension delivery 2 days ago at 38w1d. One elevated BP at 148/77 yesterday, otherwise wnl. # Continue routine care. # Pain well controlled. # [place] Feeding: Patient is breast-feeding. # Depression: discussed. # Contraception: discussed. Dispo: Anticipate discharge home likely today Walter Contreras MD Resident PGY-1 Pager [phone] 01/09/2014 5:40 Pt was seen my this practitioner and she is doing well. Ready to leave and anxious to see pedi. Plans lunch with her parents & grandparents in [place]. Pt lives in [facility] and I have advised her to call prn. Pt will followup in 2-3 weeks at [facility]. Reviewed S/sx of problems or illness related tohypertension. Radha WITT * Sharmaine Mckenna MD - 01/08/2014 0611 EDT Progress Note Chief Complaint: s/p Day # 1 S: Yolette is feeling well this morning. She noted 5/10 pain. She has been ambulating to bathroom. Tolerating a regular diet, no N/V. She is breast- feeding; good latch. Voiding well, no BM. Lochia still moderate. No F/C, RUBALCAVA, vision changes, CP/SOB, epigastric/RUQ pain. She had a daughter, Paula Pereira. MEDS Current Facility-Administered Medications Medication Route Frequency ??? acetaminophen (TYLENOL) tablet 325-650 mg oral Q4H PRN ??? docusate sodium (COLACE) capsule 100 mg oral BID PRN ??? ibuprofen (MOTRIN) tablet 400 mg oral Q4H PRN ??? lactated ringers (LR) infusion intravenous CONTINUOUS ??? lansinoh HPA lanolin topical PRN ??? multivitamin vit-iron fumarate-FA (STUARTNATAL) 27 mg iron- 1 mg tablet 1 Tab oral DAILY ??? varicella vaccine live (PF) (VARIVAX) 1,350 unit/0.5 mL subcutaneous injection 0.5 mL subcutaneous ONCE Physical Exam: BP 121/70 Pulse 74 Temp(Src) 37 ??C (98.6 ??F) (Temporal) Resp 18 SpO2 96% Intake/Output Summary (Last 24 hours) at 01/08/14 0611 Last data filed at 01/08/14 0420 Gross per 24 hour Intake 2189.82 ml Output 500 ml Net 1689.82 ml General: Patient is in no acute distress Cardiovascular: RRR, S1/S2, -m/g/r Respiratory: No respiratory distress, CTAB, -w/r/r Abdomen: Non-distended, not tender, firm fundus at 1cm below the umbilicus Extremities: trace lower extremity edema Impression: Yolette Tellez is a 33 y.o. G2 now P2002 s/p vaginal delivery following IOL for gestational hypertension delivery 1 day ago at 38w1d. BPs have been stable, wnl. # Continue routine care. # Pain well controlled. # Feeding: Patient is breast-feeding. # Depression: discussed. # Contraception: discussed. Dispo: Anticipate discharge home likely tomorrow. Walter Contreras MD Resident PGY-1 Pager [phone] 01/08/2014 6:11 Attending MD addendum: I saw and examined the patient. I discussed the plan with the resident and agree with resident's exam and assessment and plan as documented above. Plan for d/c home tomorrow. BPs improved. * Lauar Jose - 01/07/2014 1920 EDT Report from Fariba Schwartz RN. Pt awake in room with family at bedside. IV site intact, IVF and rate checks done. 1928- pt bearing down with contraction. Dr. Luciano called to room. SVE pt complete. called to room. 1930- first push. FHR 145 after push 1935- head delivered, nucal cord x1 reduced . Baby delivered. * Walter Contreras - 01/07/2014 1745 EDT Labor Progress Note Maternal Name: Yolette Tellez :1980 Rh + / GBS - Chief Complaint Patient presents with ??? Scheduled Induction Subjective: Increased pain with contractions. Josefina Q 2-3 minutes, loss of fluids following AROM, no vaginal bleeding, continued movement with reassuring FHT, Category 1 tracing. AROM with clear fluid. Objective: VS: BP 125/73 Pulse 69 Temp(Src) 36.3 ??C (97.3 ??F) (Tympanic) Resp 18 General: Increased discomfort with contractions, changing positions in bed. FHT: Baseline HR150, moderate variability, + accels, - decels. [place]: Contractions Q2-3 min. SVE: /-/vertex Assessment: She is a 33 y.o. @ 38w1d who presented with for induction of labor due to gestational HTN. Now s/p AROM with clear fluid, //vertex. Pitocin is at 10cc/hr down from 13cc/hr. Category 1 heart tracing, overall reassuring assessment. Plan: # Labor: plan to recheck SVE as indicated. Continue to titrate pitocin as indicated. # Continuous monitoring in patient on Pitocin. # GBS -: antibiotic prophylaxis not indicated. # Rh +: cord blood not indicated at delivery for Rh testing. # Pain control: adequate without epidural. Signed, Walter Contreras MD [employer] [employer] Pager [phone] 01/07/2014 17:45 * Walter Contreras - 01/07/2014 1505 EDT Labor Progress Note Maternal Name: Yolette Tellez :1980 Rh + / GBS - Chief Complaint Patient presents with ??? Scheduled Induction Subjective: Continues to feel well, tolerating contractions well. Josefina Q 4-6 minutes, loss of fluids following AROM, no vaginal bleeding, continued movement. Now s/p AROM with clear fluid. Objective: VS: BP 120/72 Pulse 63 Temp(Src) 36.2 ??C (97.2 ??F) (Oral) Resp 18 General: NAD. Patient is laying comfortably in bed in NAD FHT: Baseline HR135, moderate variability, + accels, - decels. [place]: Contractions Q4-6 min. SVE: 80/-1/vertex Assessment: She is a 33 y.o. @ 38w1d who presented with for induction of labor due to gestational HTN. Now s/p AROM with clear fluid, 80/-1/vertex. Pitocin is at 9cc/hr. Category 1 heart tracing,overall reassuring assessment. Plan: # Labor: plan to recheck SVE as indicated. Continue to titrate pitocin as indicated. # Continuous monitoring in patient on Pitocin. # GBS -: antibiotic prophylaxis not indicated. # Rh +: cord blood not indicated at delivery for Rh testing. # Pain control: adequate without epidural. Signed, Walter Conrteras MD [employer] Pager [phone] 01/07/2014 15:05 * Fariba Bauer, KRISTEN - 01/07/2014 1254 EDT Pt here for IOL for GHTN.Denies RUBALCAVA or epigastric pain.Denies SROM or vag bleeding.FHR tracing category 1.1350 Fetus cephalic by U/S.D: FHR is a category 1 tracing. The pt is a low risk pt, here for IOL for GHTN. Her condition requires continuous monitoring. She is negative for GBS. A: continuous monitoring If decelerations develop, provide IV fluids, position changes, oxygen via non-rebreather. Notify OB resident & charge nurse. R: Maintain a reassuring FHR tracing.1546 Pt enjoying tub.1646 Pt Still in tub.Denies rectal pressure.6/10 pain with ctxs.Taking PO fluids.Breathing slowly through ctxs.1721 Out of tub.1730 C/O LBP with ctxs.On hands/knees in bed.Denies rectal pressure.1806 Emesis.1841 Beg to feel hints of rectal pr essure.Dr Parada alerted. and into room. documented in this encounter H&P Notes * Nesha Parada - 01/07/2014 1222 EDT OB H&P Rh +/RI/VNP/GBS neg CC: IUP @ 38w1d, IOL for gHTN HPI: 33 y.o. woman at 38w1d presents for scheduled IOL for gHTN. Patient reports ctx q8-10 mins for the past 8 hours, was able to sleep through the night. Reports no LOF. no VB. +FM. She was last checked in the office on 01/06/14 with SVE 3cm (pt reported). On admission she feels well, contractions are tolerable and felt in lower abdomen. Has had headache, / which has not responded to tylenol. Denies blurry vision, dizziness, N/V, abdominal pain. complicated by gHTN dx @ 37+3 wks PMHx: none PSHx: dental surgery; knee surgery in February 2013 POBHx: : 02/2010, @ 41+ wks, 8# 6.5 oz PGynHx: hx of abnormal pap 10 yrs ago with repeat pap normal; last pap 10/2011, normal with neg HPV,no hx of STIs except HPV Social: non-smoker, no EtOH or illicit drug use Meds: PNV, Iron All: none Maternal Name: Yolette Tellez : 1980 33 y/o 2 para 1001 at 38+1/7 weeks gestation. [place] LIBIA: 01/20/2014 LIBIA Basis: LMP Confirmed by Ultrasound PAST HISTORY: Disorders diagnosed prior to current Medical Non-Timber Hewer Surgeries: Other Comments: Knee surgery Aug, dental surgery Gynecological Sexually Transmitted Diseases: None Comments: h/o abnormal Pap 10 years ago, repap WNL, last 2011 WNL Obstetrical No significant history CURRENT HISTORY (HPI pg. 1 of 2): Disorders diagnosed during current Medical Substance Abuse: None; Smoking: None; Sexually Transmitted Diseases: None Obstetrical No significant history Medications during current : None TESTING Maternal Labs: A+; Antibody screen: Neg; Rubella titer: Immune; Syphilis Screening: Neg; Gonorrhea Screening: Not Done; Chlamydia Screening: Not Done; Hepatitis B screen: Neg; Hepatitis C screen: Neg; HIV: Neg; 1hr Glucose: Normal Serum Screening: Multiple Marker Screening Not Done; Cystic Fibrosis Carrier Screening: Not Done; Carrier Screening Other: Family h/o thalassemia, neg Surveillance: Ultrasound; NST Physical: BP 125/77 Pulse 90 Temp(Src) 36.2 ??C (97.2 ??F) (Oral) Resp 18 GEN: A&Ox3, NAD ABD: Gravid, no uterine tenderness, EFW 8# by Roger. Cephalic by Roger. EXT: NT, WWP, trace edema, 2+ DPP SSE: deferred SVE: 3cm/50% per Dr. Parada. Bedside U/S: cephalic EFM: BL 135 bpm, mod variability, pos accels, no decels, Cat I FHT TOCO: q4-6 minutes A/P: 33 y.o. F at 38w1d presents for scheduled IOL for gHTN, however patient blood pressures have been within normal limits on presentation. Cat I FHT. #Admit to L&D #Labor: Early latent phase, on Pitocin at 3cc/hr. Anticipated vaginal delivery. Expectant management. Will titrate Pitocin as indicated. #FWB: continuous EFM. Cat 1 tracing. #GBS negative #Rh + #Pain: Patient desires no epidural #Dr. Parada has assessed patient and is aware of plan. Walter Contreras MD 01/07/2014 12:22 Pager#[phone] Attending MD addendum: I saw and examined the patient. I discussed the plan with the resident and agree with resident's exam and assessment and plan as documented above. documented in this encounter Procedure Notes * Nesha Parada - 01/07/2014 2030 EDT Department of CIVIL TECHNICIAN DELIVERY SUMMARY . . Maternal Name: Yolette Tellez : 1980 33 y/o 2 para 1001 at 38+1/7 weeks gestation. [place]. LABOR INFORMATION Labor Onset: Induced; Method: AROM, Oxytocin; Delivery Indication: Hypertensive disorder of ; Normal Labor Curve GBS Status: Negative; GBS Prophylaxis: None Labor Analgesia: None Labor & Delivery Medications: Post Oxytocin VTX; OA Continuous External FHRM; FHR Pattern: Normal Amniotic Fluid Color: Clear; Duration Rupture of Membranes: <12 DELIVERY INFORMATION Spontaneous Vaginal Delivery Episiotomy: None; Lacerations: None EBL: < 500 Placenta: Delivery Method: Spontaneous; Configuration: Normal Labor and Delivery Complications: None INFORMATION Weight: 3567 grams Sex: Female Delivery Date: 01/07/2014 Delivery Time: 193 Apgars: 81, 95 Peds NOT Present Admitting Nursery: Normal [place] Nuchal Cord: x1; True Knot; Placental Cord Insertion: Normal; Umbilical Cord Vessels: Three Comments: True knot x 2 DELIVERY PERSONNEL Delivery Provider: Nesha Parada Primary Nurse: Laura Ashby Service / Group: [facility] Resident 1: Lorrie Luciano Provider: Nesha Parada was present for the entire delivery. I was present throughout the entire delivery. documented in this encounter Miscellaneous Notes * Plan of Care - Marilu Hinojosa RN - 01/09/2014 1113 EDT Post- Shift Note Maternal: Admit Date: 01/07/2014 Hospital Day: LOS: 2 days Date of Delivery: Information for the patient's : Timo Tellez [[id number]] 01/07/2014 Time of Delivery: Information for the patient's : Timo Tellez [[id number]] 193 Type of Delivery: normal spontaneous vaginal delivery Rhogam Administration: Not needed Gestation (weeks): Information for the patient's : Timo Tellez [[id number]] 38 07/16 Hepatitis B: Lab Results Component Value Date HEPBSAG Negative 06/17/2013 HEPBSAG Value: Negative Reference Range: Negative 08/05/2009 Hepatitis C: Lab Results Component Value Date HEPCAB Negative 02/01/2013 Rubella: Protected Anesthesia/Duramorph: None Episiotomy/Laceration:None Vital signs: Stable Patient Vitals for the past 8 hrs: BP Pulse Resp Temp SpO2 01/09/14 0722 135/82 mmHg 74 16 37 ??C (98.6 ??F) 99 % Post- check: WNL IV / SL: None Liu/Void: Patient up and voiding Pain Medications: Given this shift - see MAR Feeding: breast Feeding assistance: Independent Special Social Circumstances: Discharge Education:Education completed Certificate: Completed Comments: Ready for discharge and order in place. Video watched and papers given/signed. Dischargedhome with baby. Marilu Hinojosa RN 01/09/2014 11:13 * Plan of Care - Marcie Sandhu RN - 01/09/2014 0556 EDT Problem: VAGINAL DELIVERY - RECOVERY AND POST Goal: Patient will remain free of falls Outcome: Met This Shift Data: Pt ambulates independently to bathroom, steady gait. Action: Hourly checks. Response: Pt free from falls this shift. Status unchanged. Marcie Sandhu RN 01/09/2014 5:55 * Plan of Care - Aicha Glass RN - 01/08/2014 2200 EDT Problem: VAGINAL DELIVERY - RECOVERY AND POST Goal: Fundus Firm At Midline Data: fundus assessed per MD protocol. Action: fundus firm, midline and down 3. Response: will continue to monitor and assess fundus per MD order and PRN. AICHA GLASS RN 01/08/2014 21:58 * Plan of Care - Marilu Hinojosa RN - 01/08/2014 1332 EDT Post- Shift Note Maternal: Admit Date: 01/07/2014 Hospital Day: LOS: 1 day Date of Delivery: Information for the patient's : Timo Tellez [[id number]] 01/07/2014 Time of Delivery: Information for the patient's : Timo Tellez [[id number]] 1936 Type of Delivery: normal spontaneous vaginal delivery Rhogam Administration: Not needed Gestation (weeks): Information for the patient's : Timo Tellez [[id number]] 38 07/16 Hepatitis B: Lab Results Component Value Date HEPBSAG Negative 06/17/2013 HEPBSAG Value: Negative Reference Range: Negative 08/05/2009 Hepatitis C: Lab Results Component Value Date HEPCAB Negative 02/01/2013 Rubella: Protected Anesthesia/Duramorph: None Episiotomy/Laceration:None Vital signs: Stable Patient Vitals for the past 8 hrs: BP Pulse Resp Temp SpO2 01/08/14 0733 130/78 mmHg 65 16 37 ??C (98.6 ??F) 98 % Post- check: WNL IV / SL: Saline lock removed - catheter intact Liu/Void: Patient up and voiding Pain Medications: Given this shift - see MAR Feeding: breast Feeding assistance: Occasional support Special Social Circumstances: Discharge Education:Education incomplete Certificate: Not completed Comments: Using ice to swollen perineum as well as tylenol/ibuprofen for comfort. Encouraged skin to skin and attempting to Bf baby at least every 3 hours, has been without interest in feeding today.Stated heavy episode of bleeding x 1 today just prior to needing to void which resolved. Will monitor for increased bleeding, fundus found to be firm and down 3 from umbilicus. Marilu Hinojosa RN 01/08/2014 13:32 * Plan of Care - Marilu Hinojosa RN - 01/08/2014 1026 EDT Problem: VAGINAL DELIVERY - RECOVERY AND POST Goal: Empties bladder Outcome: Ongoing D: Patient expected to void independently post delivery without difficulty. A: Measured voids and able to void without difficulty. Fundus firm midline down from umbilicus 3. R: Voiding regularly and bladder feeling empty post void. * Plan of Care - Faith Montoya LPN - 01/08/2014 0543 EDT Post- Shift Note Maternal: Admit Date: 01/07/2014 Hospital Day: LOS: 1 day Date of Delivery: Information for the patient's : Timo Tellez [[id number]] 01/07/2014 Time of Delivery: Information for the patient's : Timo Tellez [[id number]] 193 Type of Delivery: normal spontaneous vaginal delivery Rhogam Administration: Not needed Gestation (weeks): Information for the patient's : Timo Tlelez [[id number]] 38 07/16 Hepatitis B: Lab Results Component Value Date HEPBSAG Negative 06/17/2013 HEPBSAG Value: Negative Reference Range: Negative 08/05/2009 Hepatitis C: Lab Results Component Value Date HEPCAB Negative 02/01/2013 Rubella: Protected Anesthesia/Duramorph: None Episiotomy/Laceration:None Vital signs: Stable Patient Vitals for the past 8 hrs: BP Pulse Resp Temp SpO2 01/08/14 0120 - - - 37 ??C (98.6 ??F) - 01/07/14 2315 121/70 mmHg 74 18 37.5 ??C (99.5 ??F) 96 % 01/07/14 2215 130/72 mmHg 72 16 37.1 ??C (98.8 ??F) 96 % 01/07/14 2138 144/77 mmHg 64 - - - Post- check: WNL and Comment slightly boggy, firm with massage IV / SL: Saline lock patent and flushed this shift Liu/Void: Patient up and voiding Pain Medications: Given this shift - see MAR Feeding: breast Feeding assistance: Occasional support Special Social Circumstances: Discharge Education:Education incomplete Certificate: Not completed Comments: stable PP second baby for intact couple. Plans to BF. Uterus slightly boggy upon initial assessment, firm with 15 seconds of massage. [id number]: Routine pp care, up & voided x2 100 each time, see mar for meds, assist with breast feeding as needed & monitor voids.Using ice to swollen perineum. Faith Montoya LPN 01/08/2014 5:30 * Plan of Care - Faith Montoya LPN - 01/08/2014 0222 EDT Problem: VAGINAL DELIVERY - RECOVERY AND POST Goal: Vital Signs Are Medically Acceptable Outcome: Ongoing D: VSS A: Vital signs done per protocol. R: VSSA, continue to monitor * Plan of Care - Aicha Glass RN - 01/07/2014 2412 EDT Post- Shift Note Maternal: Admit Date: 01/07/2014 Hospital Day: LOS: 0 days Date of Delivery: Information for the patient's : RosalindaLeonyolette [[id number]] 01/07/2014 Time of Delivery: Information for the patient's : HattievikkirandalLeonemily [[id number]] 193 Type of Delivery: normal spontaneous vaginal delivery Rhogam Administration: Not needed Gestation (weeks): Information for the patient's : HattievikkirandalCarlindeb [[id number]] 38 07/16 Hepatitis B: Lab Results Component Value Date HEPBSAG Negative 06/17/2013 HEPBSAG Value: Negative Reference Range: Negative 08/05/2009 Hepatitis C: Lab Results Component Value Date HEPCAB Negative 02/01/2013 Rubella: Protected Anesthesia/Duramorph: None Episiotomy/Laceration:None Vital signs: Stable Patient Vitals for the past 8 hrs: BP Pulse Resp Temp 01/07/148 144/77 mmHg 64 - - 01/07/14 2120 128/69 mmHg 74 16 - 01/07/14 2100 134/77 mmHg 73 - 36.4 ??C (97.5 ??F) 01/07/142029 130/75 mmHg 70 - 01/07/142014 133/73 mmHg 71 - - 01/07/141999 127/69 mmHg 69 16 - 01/07/14 1945 133/70 mmHg 80 - - 01/07/14 1759 134/88 mmHg 71 18 37.1 ??C (98.8 ??F) 01/07/14 1520 125/73 mmHg 69 18 - 01/07/14 1519 - - - 36.3 ??C (97.3 ??F) Post- check: WNL and Comment slightly boggy, firm with massage IV / SL: Saline lock patent and flushed this shift Liu/Void: Patient up and voiding Pain Medications: Given this shift - see MAR Feeding: breast Feeding assistance: Occasional support Special Social Circumstances: Discharge Education:Education incomplete Certificate: Not completed Comments: stable PP second baby for intact couple. Plans to BF. Uterus slightly boggy upon initial assessment, firm with 15 seconds of massage. AICHA GLASS RN 01/07/2014 22:32 documented in this encounter Plan of Treatment Upcoming Encounters Date Type Department Care Team (Late st Contact Info) Description 01/31/2024 10:[address] [facility] Neurology - S [address] [phone] Med Maldonado MD [address] [place] [address], Level [address] [place] [phone] 08/31/2024 9:40 EST Appointment aNz Perez [address] [phone] Scheduled Referrals Name Type Priority Associated Diagnoses Order Schedule PROVIDER FOLLOW-UP INSTRUCTIONS Outpatient Referral Routine Ordered: 01/09/2014 documented as of this encounter Procedures Procedure Name Priority Date/Time Associated Diagnosis Comments PROTEIN, TOTAL, RANDOM, URINE Routine 01/07/2014 11:59 EDT CREATININE, URINE RANDOM Routine 01/07/2014 11:59 EDT TYPE AND SCREEN STAT 01/07/2014 11:53 EDT FIBRINOGEN STAT 01/07/2014 11:52 EDT COMPLETE BLOOD COUNT STAT 01/07/2014 11:52 EDT URIC ACID STAT 01/07/2014 11:52 EDT ALT STAT 01/07/2014 11:52 EDT AST STAT 01/07/2014 11:52 EDT LDH STAT 01/07/2014 11:52 EDT CREATININE STAT 01/07/2014 11:52 EDT documented in this encounter Results * CREATININE, URINE RANDOM (01/07/2014 11:59 EDT) Creatinine, Urn Eccles 109.7 mg/dl [facility] Urine specimen (specimen) URINE / Unknown 01/07/2014 11:59 EDT 01/07/2014 12:20 EDT Sisi Suazo MD URINALYSIS ORDERABLE S Performing Organization Address [facility] Co de Phone Number [place] [address] * TOTAL PROTEIN, URINE RANDOM (01/07/2014 11:59 EDT) Tot Prot,Ur Random 6 mg/dl [facility] Urine specimen (specimen) URINE / Unknown 01/07/2014 11:59 EDT 01/07/2014 12:20 EDT Sisi Suazo MD URINALYSIS ORDERABLE S Performing Organization Address [facility] de Phone [place] [address] * TYPE AND SCREEN (01/07/2014 11:53 EDT) ABO A [facility] Rh Factor Positive [facility] BLOOD [facility] Antibody Screen Negative [facility] Comment:SPECIMEN EXPIRES 01/10 AT 23:59 Blood specimen (specimen) 01/07/2014 11:53 EDT Sisi Suazo MD BLOOD BANK TESTS Performing Organization Address [facility] Co de Phone Number [facility] * LDH (01/07/2014 11:52 EDT) LDH [id number] - 618 U/L [facility] Blood specimen (specimen) 01/07/2014 11:52 EDT 01/07/2014 12:20 EDT Sisi Suazo MD CHEMISTRY & BLOOD GA S ORDERABLES Performing Organization Address [facility] [place] [address] * (ABNORMAL) FIBRINOGEN (01/07/2014 11:52 EDT) Fibrinogen 514(H) 171 - 384 mg/dl [facility] Blood specimen (specimen) 01/07/2014 11:52 EDT 01/07/2014 12:20 EDT Sisi Suazo MD HEMATOLOGY & PF4 ORD ERABLES Performing Organization Address [facility] [place] [address] * ALT (01/07/2014 11:52 EDT) ALT 13 9 - 52 U/L [facility] Blood specimen (specimen) 01/07/2014 11:52 EDT 01/07/2014 12:20 EDT Sisi Suazo MD CHEMISTRY & BLOOD GA S ORDERABLES Performing Organization Address [facility] Phone Number [address] [address] * AST (01/07/2014 11:52 EDT) AST 17 15 - 46 U/L [facility] Blood specimen (specimen) 01/07/2014 11:52 EDT 01/07/2014 12:20 EDT Sisi Suazo MD CHEMISTRY & BLOOD GA S ORDERABLES Performing Organization Address [facility] [place] [address] * URIC ACID (01/07/2014 11:52 EDT) Uric Acid 5.0 2.2 - 7.7 mg/dl [facility] Blood specimen (specimen) 01/07/2014 11:52 EDT 01/07/2014 12:20 EDT Sisi Suazo MD CHEMISTRY & BLOOD GA S ORDERABLES Performing Organization Address [facility] de Phone Number [facility] [address] [place] [address] * (ABNORMAL) CREATININE (01/07/2014 11:52 EDT) Creatinine 0.38(L) 0.52 - 1.04 mg/dl [facility] GFR, Calculated >60 >60 ml/min/1.7 3m2 [facility] Blood specimen (specimen) 01/07/2014 11:52 EDT 01/07/2014 12:20 EDT Sisi Suazo MD CHEMISTRY & BLOOD GA S ORDERABLES Performing Organization Address [facility] de Phone Number [facility] [address] [place] [address] * (ABNORMAL) HEMAGRAM (01/07/2014 11:52 EDT) WBC 9.63 4.0 - 12.4 K/cmm [facility] RBC 3.79(L) 3.86 - 5.04 M/cmm [facility] Hemoglobin 11.8 11.6 - 15.2 gm/dl [facility] HCT 33.0(L) 34.9 - 44.4 % [facility] MCV 87 81 - 98 fl [facility] MCH 31.1 26.7 - 33.3 pg [facility] MCHC 35.8 32.1 - 35.9 gm/dl [facility] PLT 171 141 - 320 K/cmm [facility] RDW-CV 14.2 11.7 - 14.6 % [facility] Blood specimen (specimen) 01/07/2014 11:52 EDT 01/07/2014 12:20 EDT Sisi Suazo MD HEMATOLOGY & PF4 ORD ERABLES Performing Organization Address [facility]/State/ZIP Co de Phone Number [facility] [address] [place] [address] documented in this encounter Visit Diagnoses Diagnosis Supervision of normal subsequent - Primary Supervision of other normal Normal labor and delivery Normal delivery documented in this encounter Administered Medications Inactive Administered Medications - up to 3 most recent administrations Medication Order MAR Action Action Date Dose Rate Site acetaminophen (TYLENOL) tablet 325-650 mg 325-650 mg, oral, EVERY 4 HOURS PRN, Starting on Mon01/07/14 at 2148, Until Mitra 01/09/14 at 1524, Pain, Routine Given 01/09/2014 9:51 EDT 650 mg Given 01/09/2014 5:27 EDT 650 mg Given 01/09/2014 0:23 EDT 650 mg acetaminophen (TYLENOL) tablet 650 mg 650 mg, oral, PRN, Starting on Mon01/07/14 at 1144, Until Mon01/07/14 at 2148, Pain, , Routine Given 01/07/2014 20:41 EDT 650 mg docusate sodium (COLACE) capsule 100 mg 100 mg, oral, 2 TIMES DAILY PRN, Starting on Mon01/07/14 at 2148, Until Mitra 01/09/14 at 1524, Constipation, Routine Given 01/08/2014 15:50 EDT 100 mg ibuprofen (MOTRIN) tablet 400 mg 400 mg, oral, PRN, Starting on Mon01/07/14 at 1144, Until Mon01/07/14 at 2148, Pain, , Routine Given 01/07/2014 20:41 EDT 400 mg ibuprofen (MOTRIN) tablet 400 mg 400 mg, oral, EVERY 4 HOURS PRN, Starting on Mon01/07/14 at 2148, Until Mitra 01/09/14 at 1524, Pain, Routine Given 01/09/2014 9:51 EDT 400 mg Given 01/09/2014 5:27 EDT 400 mg Given 01/09/2014 0:23 EDT 400 mg lactated ringers (LR) infusion 150-200 mL/hr, intravenous, CONTINUOUS, Starting on Mon01/07/14 at 1215, Until Mon01/07/14 at 2148, Routine New Bag 01/07/2014 16:34 EDT 200 mL/hr 200 mL/hr New Bag 01/07/2014 12:00 EDT 200 mL/hr 200 mL/hr IV multivitamin vit-iron fumarate-FA (STUARTNATAL) 27 mg iron- 1 mg tablet 1 Tab 1 Tablet, oral, DAILY, First dose on Mon01/08/14 at 0900, Until Discontinued, Routine Given 01/09/2014 8:18 EDT 1 T ablet Given 01/08/2014 10:14 EDT 1 Tablet oxytocin in lactated ringers 30 units/500 ml 200 mL/hr, intravenous, CONTINUOUS, Starting on Mon01/07/14 at 2015, Until Mon01/07/14 at 2039, Routine, Intraprocedure New Bag 01/07/2014 19:40 EDT 200 mL/hr 200 mL/hr oxytocin in lactated ringers 30 units/500 ml 135 mL/hr, intravenous, CONTINUOUS, Starting on Mon01/07/14 at 2040, Until Mon01/07/14 at 2139, Routine, Intraprocedure Rate Change 01/07/2014 20:41 EDT 135 mL/hr 135 mL/hr oxytocin in lactated ringers 30 units/500 ml 1-30 oliver-units/min (rounded to 1-30 mL/hr), intravenous, CONTINUOUS, Starting on Mon01/07/14 at 1215, Until Mon01/07/14 at 2148, Routine Rate Change 01/07/2014 18:22 EDT 9 oliver-units/min 9 mL/hr Rate Change 01/07/2014 17:49 EDT 7 oliver-units/min 7 mL/hr Rate Change 01/07/2014 17:26 EDT 10 oliver-units/min 10 mL/ hr documented in this encounter Discontinued Medications Medication Sig Discontinue Reason Start Date End Da te ibuprofen (ADVIL;MOTRIN) 100 mg/5 mL suspension Take 20 mL by mouth every 6 hours as needed for Pain. 03/05/2010 01/09/2014 multivitamin (FLINTSTONES COMPLETE) chewable tablet Take 1 Tab by mouth daily. 01/09/2014 documented as of this encounter Active and Recently Administered Medications Times are shown in EDT. Scheduled Medication Order 01/07/2014 01/08/2014 01/09/2014 multivitamin vit-iron fumarate-FA (STUARTNATAL) 27 mg iron- 1 mg tablet 1 Tab 1 Tablet, oral, DAILY, First dose on Mon01/08/14 at 0900, Until Discontinued, Routine 1014 (Given - Provider: Marilu Hinojosa, KRISTEN) 0818 (Given - Provider: Marilu Hinojosa RN) Continuous Medication Order 01/07/2014 01/08/2014 01/09/2014 lactated ringers (LR) infusion (CANCELED) 150-200 mL/hr, intravenous, CONTINUOUS, Starting on Mon01/07/14 at 1215, Until Mon01/07/14 at 2148, Routine 1200 (New Bag - Provider: Fariba Bauer RN)1634 (New Bag - Provider: Fariba Bauer RN)2136 (Completed - Provider: Laura Jose) oxytocin in lactated ringers 30 units/500 ml ()(Linked Group 1) 200 mL/hr, intravenous, CONTINUOUS, Starting on Mon01/07/14 at 2015, Until Mon01/07/14 at 2039, Routine, Intraprocedure 1940 (New Bag - Provider: Laura Jose) oxytocin in lactated ringers 30 units/500 ml ()(Linked Group 1) 135 mL/hr, intravenous, CONTINUOUS, Starting on Mon01/07/14 at 2040, Until Mon01/07/14 at 2139, Routine, Intraprocedure 2041 (Rate Change - Provider: Laura Jose) oxytocin in lactated ringers 30 units/500 ml (CANCELED) 1-30 oliver-units/min (rounded to 1-30 mL/hr), intravenous, CONTINUOUS, Starting on Mon01/07/14 at 1215, Until Mon01/07/14 at 2148, Routine 1219 (New Bag - Provider: Fariba Bauer RN)1246 (Rate Change - Provider: Fariba Bauer RN)1320 (Rate Change - Provider: Fariba Bauer RN)1402 (Rate Change - Provider: Fariba Bauer RN)1430 (Rate Change - Provider: Fariba Bauer RN)1512 (Rate Change - Provider: Fariba Bauer RN)1539 (Rate Change - Provider: Fariba Bauer RN)1726 (Rate Change - Provider: Fariba Bauer RN)1749 (Rate Change - Provider: Fariba Bauer RN)1822 (Rate Change - Provider: Fariba Bauer RN)2135 (Completed - Provider: Laura Jose) PRN Medication Order 01/07/2014 01/08/2014 01/09/2014 acetaminophen (TYLENOL) tablet 325-650 mg (CANCELED) 325-650 mg, oral, EVERY 4 HOURS PRN, Starting on Mon01/07/14 at 2148, Until Mitra 01/09/14 at 1524, Pain, Routine 0122 (Given - Provider: Faith Montoya LPN)0752 (Given - Provider: Marilu Hinojosa RN)1159 (Given - Provider: Marilu Hinojosa RN)1550 (Given - Provider: Aicha Glass RN)202 (Given - Provider: Aicha Glass RN) 0023 (Given - Provider: Marcie Sandhu RN)0527 (Given - Provider: Marcie Sandhu RN)0951 (Given - Provider: Marilu Hinojosa RN) acetaminophen (TYLENOL) tablet 650 mg (CANCELED) 650 mg, oral, PRN, Starting on Mon01/07/14 at 1144, Until 01/07/14 at 2148, Pain, , Routine 2041 (Given - Provider: Laura Jose) docusate sodium (COLACE) capsule 100 mg 100 mg, oral, 2 TIMES DAILY PRN, Starting on Mon01/07/14 at 2148, Until Mitra 01/09/14 at 1524, Constipation, Routine 1550 (Given - Provider: Aicha Glass RN) ibuprofen (MOTRIN) tablet 400 mg (CANCELED) 400 mg, oral, PRN, Starting on Mon01/07/14 at 1144, Until e 01/07/14 at 2148, Pain, , Routine 2041 (Given - Provider: Laura Jose) ibuprofen (MOTRIN) tablet 400 mg 400 mg, oral, EVERY 4 HOURS PRN, Starting on Mon01/07/14 at 2148, Until Mitra 01/09/14 at 1524, Pain, Routine 0123 (Given - Provider: Faith Montoya LPN)0752 (Given - Provider: Marilu Hinojosa RN)1159 (Given - Provider: Marilu Hinojosa RN)1550 (Given - Provider: Aicha Glass, RN)2025 (Given - Provider: Aicha Glass, RN) 0023 (Given - Provider: Marcie Sandhu, RN)0527 (Given - Provider: Marcie Sandhu, RN)0951 (Given - Provider: Marilu Hinojosa, KRISTEN) lansinoh HPA lanolin topical (top), PRN, Starting on Mon01/07/14 at 2148, Until Mon01/09/14 at 1524, Other Linked Groups Order Group 1: oxytocin in lactated ringers 30 units/500 ml ()Jump to med 200 mL/hr, intravenous, CONTINUOUS, Starting on Mon01/07/14 at 2015, Until Mon01/07/14 at 2038, Routine, Intraprocedure Followed by oxytocin in lactated ringers 30 units/500 ml ()Jump to med 135 mL/hr, intravenous, CONTINUOUS, Starting on Mon01/07/14 at 2040, Until Mon01/07/14 at 213, Routine, Intraprocedure documented in this encounter Orders Medications Ordered That Alhaji ht Not Have Been Administered Count Last Ordered Date First Ordered Date varicella vaccine live (PF) (VARIVAX) 1,350 unit/0.5 mL subcutaneous injection 0.5 mL 1 01/08/2014 carboprost (HEMABATE) intram uscular injection 250 mcg 1 01/07/2014 lactated ringers (LR) infusion 01/07/2014 lansinoh HPA lanolin 1 01/07/2014 methylergonovine (METHERGINE ) injection 200 mcg 01/07/2014 misoprostol (CYTOTEC) tablet 200 mcg 07/2013 misoprostol (CYTOTEC) tablet 800 mcg 07/2013 Diet Count Last Ordered Date First Orde red Date DISCHARGE DIET 1 01/09/2014 Nursing Count Last Ordered Date First Orde red Date ACTIVITY INSTRUCTIONS 3 01/09/2014 BATHING INSTRUCTIONS 2 01/09/2014 Admission Count Last Ordered Date First Orde red Date STATUS: NON-MEDICARE OB INPA TIENT ADMISSION 1 01/07/2014 Transfer Count Last Ordered Date First Orde red Date NOTIFY PPS OF DISCHARGE COMPLETE 01/10/20 14 PPS NOTIFICATION OF PATIENT ARRIVAL ON UNIT 1 01/07/2014 PPS NOTIFICATION OF SENDING PATIENT OFF THE UNIT 1 01/07/2014 Discharge Count Last Ordered Date First Orde red Date DISCHARGE PATIENT 1 01/09/2014 Legal Count Last Ordered Date First Orde red Date MISCELLANEOUS DISCHARGE INSTRUCTIONS 3 09/2013 documented in this encounter Care Teams Diesel Locomotive Engineer Relationship Specialty Start Date End Date Bonita Saldana PCP - General 01/31/13 01/15/14 documented as of this encounter
--- OUTSIDE RECORDS SUMMARY | 2024-01-26 12:54 | XMS_ITS | Encounter Summary ---
Author Organization [facility] Address [address] [place] [address] Care Team Providers Care Senior Lead Developer Name Role Phone Bonita Saldana Primary Care Provider Unavailable Encounter Details Date Type Department Care Team (Latest Contact Info) Description 06/17/2013 7:27 EST - 06/17/2013 7:32 [facility] Hospital Encounter [address] [address] Nesha Parada MD [address] [place] [phone] Discharge Disposition: Home or Self Care [...] Info) Description 01/31/2024 10:15 EDT Telemedicine [facility] Neurology - S [address] [phone] Med Maldonado MD [address] [place] [address], Level 2 [place] [phone] 08/31/2024 9:40 EST Appointment Naz Perez [address] [phone] documented as of this encounter Visit Diagnoses Not on filedocumented in this encounter Care Teams Senior Lead Developer Relationship Specialty Start Date End Date Bonita Saldana PCP - General 01/31/13 01/15/14 documented as of this encounter
--- OUTSIDE RECORDS SUMMARY | 2024-01-26 12:54 | XMS_ITS | Encounter Summary ---
Author Organization [facility] Address [address] [place] [address] Care Team Providers Care Couturiere Name Role Phone Angelic Silva APRN Primary Care Provider [phone] Encounter Details Date Type Department Care Team (Latest Contact Info) Description 06/29/2018 12:55 EST - 06/29/2018 23:59 EST Hospital Encounter [facility] [address] [place] [address] Unknown, Provider, Discharge Disposition: Home or Self Care Social [...] on file documented as of this encounter Medications at [...] daily as needed for Constipation. 01/09/2014 07/31/2019 meclizine (ANTIVERT) 25 mg tablet Take 25 mg by mouth 2 times daily. Reported on 08/18/2016 07/31/2019 documented as of this encounter Discharge Disposition Disposition Code Departure Means Destination Home or Self [facility] documented in this encounter Plan of Treatment Upcoming Encounters Date Type Department Care Team (Late st Contact Info) Description 01/31/2024 10:15 EDT Telemedicine [facility] Neurology - S [address] [phone] Med Maldonado MD [address] [place] [address] [address] [place] [phone] 08/31/2024 9:40 EST Appointment Naz Perez [address] [phone] documented as of this encounter Visit Diagnoses Not on filedocumented in this encounter Care Teams Couturiere Relationship Specialty Start Date End Date Angelic Silva APRN [address] [place] [address] PCP - General 05/05/16 03/26/20 documented as of this encounter
--- OUTSIDE RECORDS SUMMARY | 2024-01-26 12:54 | XMS_ITS | Encounter Summary ---
Author Organization [facility] Address [address] [place] [address] Care Team Providers Care Hand Heel Seat Fitter Name Role Phone Bonita Saldana Primary Care Provider Unavailable Reason for Referral * (Routine) - Closed Specialty Diagnoses / Procedures Referred By Tito hernandez Referred To Contact Pippa Hernandez MD [address] [place] [address] Referral ID Status Reason Start Date Expiration Date V isits Requested Visits Authorized [id number] Closed Specialty Services Required 01/02/2014 1 1 Reason for Visit * Reason Comments Scheduled Induction hypertension Encounter Details Date Type Department Care Team (Latest Contact Info) Description 01/02/2014 14:55 EDT - 01/02/2014 19:48 EDT Hospital Encounter [facility] [address] [place] [address] Sharmaine Mckenna MD [address] [place] [phone] Lala Bettencourt MD [address] [place] [phone] Supervision of normal subsequent (Primary Dx) [...] Sign Reading Time Taken Comments Blood Pressure 134/89 01/02/2014 1850 EDT Pulse 79 01/02/2014 1850 EDT Temperature 36.6 ??C (97.9 ??F) 01/02/2014 1515 EDT Respiratory Rate 16 01/02/2014 1850 EDT Oxygen Saturation - - Inhaled Oxygen Concentration - - Weight 82.1 kg (181 lb) 01/02/2014 1515 EDT Height 172.7 cm (5' 8) 01/02/2014 1515 EDT Body Mass Index 27.52 01/02/2014 1515 EDT documented in this encounter Medications at Time [...] mg by mouth daily with breakfast. 09/07/2015 ibuprofen (ADVIL;MOTRIN) 100 mg/5 mL suspension Take 20 mL by mouth every 6 hours as needed for Pain. 03/05/2010 01/09/2014 lansinoh HPA lanolin Use as needed for breast feeding. 01/09/2014 09/07/2015 multivitamin (FLINTSTONES COMPLETE) chewable tablet Take 1 Tab by mouth daily. 01/09/2014 multivitamin vit-iron fumarate-FA (STUARTNATAL) 27 mg iron- 1 mg tablet tablet Take 1 Tab by mouth daily. 01/09/2014 09/07/2015 documented as of this encounter Ordered Prescriptions Prescription Sig Dispensed Refills Start Date End Da te acetaminophen (TYLENOL) 325 mg tablet Take 2 Tabs by mouth as needed for Pain (). 01/02/2014 10/18/2021 documented in this encounter Discharge Disposition Disposition Code Departure Means Destination Home or Self Care documented in this encounter Progress Notes * Dimple Larry - 01/02/2014 1930 EDT 1914: Report received from Jcarlos Evans RN. Pt is discussing with EDUAR Collier going home and scheduling induction for Monday. LR infusing. 1944: Discharge instructions given to pt. Pt denies any questions. IV removed. Pt left unit in wheelchair. * Rosalie Collier CNM - 01/02/2014 1550 EDT R1 L&D Progress Note CC: 142/100 BP x1 in office, observation for repeat BP check and possible induction for PIH Rh pos/GBS neg S: Patient had been seen in office with a recorded BP of 142/100 x1 and c/o headache, she is here for observation and rechecking blood pressures and pre- eclampsia labs. Overal uncomplicated , states she has had irregular contractions sporadically over the past 3 weeks but -LOF, -VB, +FM. Denies blurry vision, epigastric pain. O: BP 136/86 HR 74 EFM: BL 140 bpm, mod variability, pos accels, no decels, Cat I FHT TOCO: No contractions recorded SVE: 2/50%/-2 (office exam 12/30 - closed int os/long/soft/ant) HEART: regular rate rhythm LUNGS: CTAB ABD: gravid, nontender, cephalic by Roberto's, estimated 6.5lbs LE: bilateral 1+ PE, 2+ DPs, normal DTRs A/P: 33 y.o. at 37w3d here for observation and possible induction because of hypertensive BP recorded in office today, comfortable, mild headache, stable. Cat I FHT *Labor: not in active labor currently, monitoring BPs *PIH: 142/100 recorded at clinic today, last weeks previous pressures 130s/70- 80s - monitor BP in bed and reevaluate for possible induction. Pre-eclampsia labs ordered, urine random creatinine and protein ordered, IV placed *FWB: Continuous EFM for PIH and possible induction *Pain: Desires a natural Pt discussed with EDUAR Wiggins with [facility] (I was present for pt admission and evaluation which was moving toward a plan for induction. Pt BP readings here were stable and not hypertensive. I personally examined the pt and DTR's as noted/ no clonus. + 1 bilateral edema. VE was 2 ext os / soft and 50% / internal os 1+ anterior to the pt right side. Of note, pt took ~ 3 + hours to come from office for her evaluation/ induction had to stopfor Al's and go shopping. Headache + but is the headache she has everyday and rates it at 0 out of10 on pain scale. Pt labs obtained and C/P ratio. Rosalie Abad MD 01/02/2014 15:50 After labs, consulted with Sg at 1720 and decision was made to induce at 37+3 weeks for gestational HTN with no significant features or severity to her HTN. Pt was given usual informed consent for induction at 37+3 weeks. Pt was all set to have supper and to proceed with Induction of labor: we discussed using the misoprostel tablet for IOL. 1924 Addendum: Patient has had normal BPs, all pre-eclampsia labs are WNL and no other symptoms. After discussion with EDUAR Collier she has decided to not be induced at this time and will be following up in the office. Pippa Abad MD At 181 pt requested my presence --she had more questions. I was not able to see her until 1899 when she asked a series of questions re: baby, risks, medical risks. I answered the questions and she elected to postpone the IOL until 38 weeks and I was able to set a reservation on the IOL schedule for Monday01/06/14. Lala Bettencourt notifed of the pt election to wait --strict instructions for bedrest w/ privileges and when to call us for problems or concerns: severe headache, changes in edema, vomitting, decreased FM or any BP readings 140's /90's at home. Sophia WITT * Nesha Evans - 01/02/2014 1541 EDT Pt care assumed after report from Jcarlos Black RN. Pt here for pre-eclamptic work- up after elevated BPnoted in office today. NST in progress, category 1 tracing. BP 135/79. 1535 Cristy Abad MD and EDUAR Collier in to see pt for initial assessment 1544 Meghann VARNER CNM. External os 2 cm; internal os 1-2/50%-2. Plan lab draw, IV placement. Will consider IOL based on lab values and BPs over next few readings. 1610 Labs drawn and sent, 18 g IV placed in pt's right forearm 1725 All labs WNL, no evidence of pre-eclampsia. Pt technically meets guidelines for early IOL for gestational hypertension. EDUAR Collier in for discussion with pt of risks and benefits of early IOL including possible NICU stay for baby. Pt offered choice of IOL today or discharge home. Pt electing IOL. 1730 CEFM reapplied 1810 Pt put call light on, would like to talk with EDUAR Collier again regarding plan of care, states she is having second thoughts about proceeding with induction today. EDUAR Collier aware, at bedside with another laboring pt at this time. documented in this encounter Plan of Treatment Upcoming Encounters Date Type Department Care Team (Late st Contact Info) Description 01/31/2024 10:15 EDT Telemedicine [facility] Neurology - [place] [address] [place], [place] [id number] Med Maldonado MD [address] [place] [address], Level [address] [place] [phone] 08/31/2024 9:40 EST Appointment Naz Perez [address] [address] Scheduled Referrals Name Type Priority Associated Diagnoses Order Schedule PROVIDER FOLLOW-UP INSTRUCTIONS Outpatient Referral Routine Ordered: 01/02/2014 documented as of this encounter Procedures Procedure Name Priority Date/Time Associated Diagnosis Comments FIBRINOGEN STAT 01/02/2014 16:10 EDT COMPLETE BLOOD COUNT STAT 01/02/2014 16:10 EDT BLOOD BANK HOLD Routine 01/02/2014 16:10 EDT URIC ACID STAT 01/02/2014 16:10 EDT BUN STAT 01/02/2014 16:10 EDT ALT STAT 01/02/2014 16:10 EDT AST STAT 01/02/2014 16:10 EDT LDH STAT 01/02/2014 16:10 EDT CREATININE STAT 01/02/2014 16:10 EDT URINALYSIS WITH MICROSCOPIC IF POSITIVE STAT 01/02/2014 15:15 EDT UA REFLEX Routine 01/02/2014 15:15 EDT URINE CULTURE IF POSITIVE STAT 01/02/2014 15:15 EDT PROTEIN, TOTAL, RANDOM, URINE Routine 01/02/2014 15:15 EDT CREATININE, URINE RANDOM Routine 01/02/2014 15:15 EDT documented in this encounter Results * BLOOD BANK SPECIMEN HOLD (01/02/2014 16:10 EDT) Hold BB Spec will exp at 23:59, 3 days from collect date [facility] Comment:SAMPLE EXPIRES ON @23:59 Blood specimen (specimen) 01/02/2014 16:10 EDT Rosalie MELENDEZ BLOOD BANK T ESTS [facility] BLOOD BANK * (ABNORMAL) HEMAGRAM (01/02/2014 16:10 EDT) WBC 10.81 4.0 - 12.4 K/cmm [facility] RBC 3.81(L) 3.86 - 5.04 M/cmm [facility] Hemoglobin 11.7 11.6 - 15.2 gm/dl [facility] HCT 32.9(L) 34.9 - 44.4 % [facility] MCV 86 81 - 98 fl [facility] MCH 30.7 26.7 - 33.3 pg [facility] MCHC 35.5 32.1 - 35.9 gm/dl [facility] PLT 179 141 - 320 K/cmm [facility] RDW-CV 14.1 11.7 - 14.6 % [facility] Blood specimen (specimen) 01/02/2014 16:10 EDT 01/02/2014 16:28 EDT Pippa Hernandez MD HEMATOLOGY & PF4 ORD ERABLES Performing Organization Address [facility] Co de Phone Number [facility] [address] [place] [address] * (ABNORMAL) BUN (01/02/2014 16:10 EDT) BUN 7(L) 10 - 26 mg/dl [facility] Blood specimen (specimen) 01/02/2014 16:10 EDT 01/02/2014 16:28 EDT Pippa Hernandez MD CHEMISTRY & BLOOD GA S ORDERABLES Performing Organization Address [facility] Co de Phone Number [facility] [address] [place] [address] * (ABNORMAL) CREATININE (01/02/2014 16:10 EDT) Creatinine 0.30(L) 0.52 - 1.04 mg/dl [facility] GFR, Calculated >60 >60 ml/min/1.7 3m2 [facility] Blood specimen (specimen) 01/02/2014 16:10 EDT 01/02/2014 16:28 EDT Pippa Hernandez MD CHEMISTRY & BLOOD GA S ORDERABLES [facility] [address] [place] [address] * URIC ACID (01/02/2014 16:10 EDT) Uric Acid 4.3 2.2 - 7.7 mg/dl [facility] Blood specimen (specimen) 01/02/2014 16:10 EDT 01/02/2014 16:28 EDT Pippa Hernandez MD CHEMISTRY & BLOOD GA S ORDERABLES Performing Organization Address [facility] Phone Number [facility] [address] [place] [address] * AST (01/02/2014 16:10 EDT) AST 21 15 - 46 U/L [facility] Blood specimen (specimen) 01/02/2014 16:10 EDT 01/02/2014 16:28 EDT Pippa Hernandez MD CHEMISTRY & BLOOD GA S ORDERABLES Performing Organization Address [facility] de Phone Number [facility] [address] [place] [address] * ALT (01/02/2014 16:10 EDT) ALT 24 9 - 52 U/L [facility] Blood specimen (specimen) 01/02/2014 16:10 EDT 01/02/2014 16:28 EDT Pippa Hernandez MD CHEMISTRY & BLOOD GA S ORDERABLES Performing Organization Address [facility] Co de Phone Number [facility] [address] [place] [address] * (ABNORMAL) FIBRINOGEN (01/02/2014 16:10 EDT) Fibrinogen 566(H) 171 - 384 mg/dl [facility] Blood specimen (specimen) 01/02/2014 16:10 EDT 01/02/2014 16:28 EDT Pippa Hernandez MD HEMATOLOGY & PF4 ORD ERABLES Performing Organization Address [facility] Co de Phone Number [facility] [address] [place] [address] * LDH (01/02/2014 16:10 EDT) LDH 485 313 - 618 U/L [facility] Blood specimen (specimen) 01/02/2014 16:10 EDT 01/02/2014 16:28 EDT Pippa Hernandez MD CHEMISTRY & BLOOD GA S ORDERABLES Performing Organization Address [facility] de Phone Number [facility] [address] [place] [address] * UA REFLEX (01/02/2014 15:15 EDT) UA Billing Microscopic not indicated. [facility] 01/02/2014 15:1 5 EDT 01/02/2014 15:59 EDT Pippa Hernandez MD URINALYSIS ORDERABLE S Performing Organization Address [facility] de Phone Number [facility] [address] [place] [address] * CREATININE, URINE RANDOM (01/02/2014 15:15 EDT) Creatinine, Urn [facility] 75.4 mg/dl [facility] Urine specimen (specimen) URINE / Unknown 01/02/2014 15:15 EDT 01/02/2014 16:00 EDT Pippa Hernandez MD URINALYSIS ORDERABLE S Performing Organization Address [facility] Co de Phone Number [facility] [address] [place] [address] * TOTAL PROTEIN, URINE RANDOM (01/02/2014 15:15 EDT) Tot Prot,Ur Random 6 mg/dl [facility] Urine specimen (specimen) URINE / Unknown 01/02/2014 15:15 EDT 01/02/2014 16:00 EDT Pippa Hernandez MD URINALYSIS ORDERABLE S Performing Organization Address [facility] de Phone Number [facility] [address] [place] [address] * URINE CULTURE IF UA POSITIVE - NON POCT URINALYSIS ONLY (01/02/2014 15:15 EDT) Culture if Indicated Culture not indicated by urinalysis results. [facility] Urine specimen (specimen) URINE / Unknown 01/02/2014 15:15 EDT 01/02/2014 15:59 EDT Pippa Hernandez MD MICROBIOLOGY - GENER AL ORDERABLES Performing Organization Address [facility] de Phone Number [facility] [address] [place] [address] * (ABNORMAL) URINALYSIS (01/02/2014 15:15 EDT) Color, UA Yellow [facility] Clarity, UA Clear [facility] Glucose, UA Neg Neg [facility] Bilirubin, UA Neg Neg [facility] Ketones, UA Trace(A) Neg [facility] Specific [place], Urine >1.030 1.001 - 1.035 [facility] Blood, UA Neg Neg [facility] pH, UA 6.0 4.6 - 8.0 [facility] Protein, UA Neg Neg [facility] Urobilinogen, UA 0.2 0.2 - 1.0 E.U./dl [facility] Nitrite, UA Neg Neg [facility] Leuk Esterase Neg Neg [facility] Refractometer SG,Urine 1.021 1.001 - 1.035 [facility] Urine specimen (specimen) URINE / Unknown 01/02/2014 15:15 EDT 01/02/2014 15:59 EDT Pippa Hernandez MD URINALYSIS ORDERABLE S [facility] [address] [place] [address] documented in this encounter Visit Diagnoses Diagnosis Supervision of normal subsequent - Primary Supervision of other normal Supervision of normal subsequent Supervision of other normal documented in this encounter Discontinued Medications Medication Sig Discontinue Reason Start Date End Da te nortriptyline (PAMELOR) 10 mg capsule Take 10mg at bedtime for 2 weeks then increase to 20mg at bedtime 02/01/2013 01/02/2014 acetaminophen (TYLENOL) 650 mg/20.3 mL solution Take 20.3 mL by mouth every 6 hours as needed for Pain. 03/05/2010 01/02/2014 documented as of this encounter Historical Medications * This list may reflect changes made after this encounter. Medication Sig Dispensed Refills Start Date End Date ferrous sulfate 324 mg (65 mg iron) tablet,delayed release (DR/EC) Take 324 mg by mouth daily with breakfast. 09/07/2015 added in this encounter Active and Recently Administered Medications Times are shown in EDT. PRN Medication Order 12/31/2013 01/01/2014 01/02/2014 acetaminophen (TYLENOL) tablet 650 mg 650 mg, oral, PRN, Starting on Mitra 01/02/14 at 1802, Until Mitra 01/02/14 at 2149, Pain, , Routine documented in this encounter Orders Medications Ordered That Alhaji ht Not Have Been Administered Count Last Ordered Date First Ordered Date acetaminophen (TYLENOL) tablet 650 mg 1 carboprost (HEMABATE) intram uscular injection 250 mcg 1 01/02/2014 ibuprofen (MOTRIN) tablet 400 mg 1 01/03/20 14 methylergonovine (METHERGINE ) injection 200 mcg 1 01/02/2014 misoprostol (CYTOTEC) tablet 200 mcg 1 12/09 misoprostol (CYTOTEC) tablet 25 mcg 1 01/02 misoprostol (CYTOTEC) tablet 800 mcg 1 12/09 Diet Count Last Ordered Date First Orde red Date DISCHARGE DIET 2 01/02/2014 Nursing Count Last Ordered Date First Orde red Date ACTIVITY INSTRUCTIONS 1 01/02/2014 BATHING INSTRUCTIONS 1 01/02/2014 Admission Count Last Ordered Date First Orde red Date STATUS: NON-MEDICARE OB INPA TIENT ADMISSION 1 01/02/2014 Transfer Count Last Ordered Date First Orde red Date NOTIFY PPS OF DISCHARGE COMPLETE 1 01/03/20 14 Discharge Count Last Ordered Date First Orde red Date DISCHARGE PATIENT 1 01/02/2014 Legal Count Last Ordered Date First Orde red Date MISCELLANEOUS DISCHARGE INSTRUCTIONS 12/09 documented in this encounter Care Teams Hand Heel Seat Fitter Relationship Specialty Start Date End Date Bonita Saldana PCP - General 01/31/13 01/15/14 documented as of this encounter
--- OUTSIDE RECORDS SUMMARY | 2024-01-26 12:54 | XMS_ITS | Encounter Summary ---
Author Organization [facility] Address [address] [place] [address] Care Team Providers Care Armature Winder Helper Repair Name Role Phone Angelic Silva APRN Primary Care Provider [phone] [phone] Reason for Referral * Radiology Services (Routine) - Closed Specialty Diagnoses / Procedures Referred By Contac t Referred To Contact Diagnoses Vertigo Labyrinthine vestibulitis, unspecified laterality Procedures MR HEAD W/WO CONTRAST Elliott Ledezma MD [address] [place] [phone] Referral ID Status Reason Start Date Expiration Date Visits Re quested Visits Authorized [id number] Closed 05/09/2016 1 1 Reason for Visit * Reason Comments Follow-up Encounter Details Date Type Department Care Team ([facility] st Contact Info) Description 05/09/2016 10:30 EDT Office Visit [facility] Neurology - [address] [address] Elliott Ledezma MD [address] [place] [phone] Vertigo (Primary Dx); Labyrinthine vestibulitis, unspecified laterality; Small fiber neuropathy Discharge Disposition: Auto Discharge Social History Tobacco Use Types Packs/Day Years [...] Sign Reading Time Taken Comments Blood Pressure 122/86 05/09/2016 1034 EDT Pulse 64 05/09/2016 1034 EDT Temperature - - Respiratory Rate 18 05/09/2016 1034 EDT Oxygen Saturation - - Inhaled Oxygen Concentration - - Weight 76.2 kg (168 lb) 05/09/2016 1034 EDT Height 172.7 cm (5' 8) 05/09/2016 1034 EDT Body Mass Index 25.54 05/09/2016 1034 EDT documented in this encounter Discharge Diagnoses Diagnosis R42 Dizziness and giddiness-R42[ICD-10-CM] H83.09 Labyrinthitis, unspecified ear-H83.09[ICD-10-CM] G62.9 Polyneuropathy, unspecified-G62.9[ICD-10-CM] documented in this encounter Discharge Disposition Disposition Code Departure Means Destination Auto Discharge documented in this encounter Progress Notes * Elliott Ledezma MD - 05/09/2016 1606 EDT NEUROMUSCULAR DIVISION [facility] NEUROLOGY NEUROMUSCULAR PROGRESS / FOLLOWUP NOTE - 05/09/2016 Angelic Silva [address] [phone] Dear Ms Silva: I had the pleasure of seeing your patient, Yolette Tellez, in followup at the neuromuscular clinic today. 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 Yolette is a 35-year-old woman who I have been following since 2012 for small fiber neuropathy manifest as numbness in hands and feet. However, today she reports 3 weeks of sudden onset dizziness. She had an upper respiratory infection in the days leading up to developing symptoms, and then awoke oneday with a feeling as if the room was spinning and that she was moving. The symptoms have been rather severe when she tries to walk or move about. She has been out of work for 3 weeks. It feels better with lying down and closing her eyes. There is no associated nausea, photophobia or preceding headinjury. As the symptoms have gone on, she developed a headache over the last few days described as f rontal head pressure and pressure in her left religious, but these symptoms were not present leading up to or in the days after the onset of the syndrome. She has not had any change to hearing and has not noticed any worsening of any other neurological symptoms. She is not having fevers or chills currently. She was evaluated by a local physical therapist, who believes she did not have benign positional vertigo but did not provide any vertigo exercises for the patient to perform at home. She has been trialed on meclizine without improvement in symptoms. From the standpoint of neuropathy, she does have ongoing tingling in hands and feet, which has not changed significantly since last seen in August 2015. She has noticed an increase in tingling in her left more than right hand that is more intermittent and involves the first 4 digits. She tends toshake out her hand when this happens. We had evaluated her about this time last year for progression to bilateral carpal tunnel syndrome. She had no evidence of median neuropathies at the wrist at the time of that study. Past Medical, Social and Family Histories: Are otherwise as previously dictated. Physical Exam: Blood pressure 122/86, heart rate 64, respiratory rate 18, weight 76 kg. This is a mildly overweight woman, who is in no acute distress. Neurological exam: She is alert and oriented x3, appeared to be of normal cognition with normal fund of knowledge, memory and attention. Language: No aphasia or dysarthria. Cranial nerves: Pupils are equal and reactive to light. Extraocular movements are intact without any evidence of nystagmus. There is no nystagmus with head shake or with head thrust maneuver. Facial strength and sensation were normal and symmetric, palate raised evenly, tongue protruded midline. Hearing is intact to finger rub bilaterally. Motor exam: Negative pronator drift, normal tone and bulk, full power of her upper and lower extremities. Sensory: Gradient to pin to just above the ankle bilaterally. Absent pin sensation in digits 1 through first half of digit 4 bilaterally. Positive Tinel sign at both wrists, 10 seconds of vibration at both great toes, negative Romberg. Reflexes: 2+ bilateral biceps, brachioradialis, knee jerks and ankle jerks. Coordination: Jixinh-ff-scye is accurate bilaterally; no dysdiadochokinesia on either hand, normal check examination in bilateral upper extremities. Gait: Normal casual gait. Twenty-five minutes spent with the patient today, of which 15 were spent in counseling and coordination of plan of care. Impression: 1. Acute vertigo, likely viral vestibulitis: The patient has the acute onset of vertigo, which has been persistent for 3 weeks. I agree that this is unlikely to be related to benign positional vertigo. Since the symptoms did start in the setting of an upper respiratory infection, it is quite possible that this was an inciting event. If this is indeed acute viral vestibulitis, we would expect the symptoms to improve over the next couple of weeks. Outside of this, other infectious sources include acute presentation of Lyme disease and we will send off a serum Lyme today. It is possible, although less likely, that she has an acute demyelinating lesion but given the persistence of symptoms beyond a couple of weeks, new headaches and preceding history of numbness, we will check an MRI of the brain to exclude demyelinating pathology. We will also exclude cranial nerve VIII pathology with that study. Final differential in this case wouldbe transformed migraine, although this is a diagnosis of exclusion. From a treatment standpoint she can use meclizine as needed, although this medicine is traditionally not very effective in the setting of acute vertigo. Vestibular exercises can be quite effective intreating all forms of vertigo, not just benign positional vertigo. As there may be some fatigue of the central nervous system, I sent her home with Daroff exercises, which can be done at home. 2. Small fiber sensory neuropathy: There has not been significant change to the patient's symptoms since her last visit to clinic. If the hand numbness persists it would be reasonable to consider a trial of carpal tunnel wrist splintsworn to bed nightly; and if symptoms get much worse, we could bring her back for a repeat electrodiagnostic testing. Thank you for allowing us to participate in the care of your patient. I will see her in followup in3 months and will likely space out followup visits at that point of her vertigo has resolved. If itis persistent, we will need her to see a non-peripheral nervous system neurologist and possibly an ear, nose and throat specialist. Please do not hesitate to call with any questions or concerns. Sincerely, Elliott Ledezma MD [employer] [facility] Neurology Neurology Attending Physician ABPN Board Certified, Neurology and Neuromuscular Medicine ABEM Board Certified, EMG - Elliott Ledezma MD dn Dictation ID: [id number] cc: Angelicrashaad Benavidesell TRENCH DIGGER HELPER * Elliott Ledezma MD - 05/09/2016 1030 EDT This office note has been dictated. documented in this encounter Plan of Treatment Upcoming Encounters Date Type Department Care Team (Late st Contact Info) Description 01/31/2024 10:15 EDT Telemedicine [facility] Neurology - [address] [id number] Med Maldonado MD [address] [place] [address] [address] [place] [phone] 08/31/2024 9:40 EST Appointment Naz Perez [address] [address] documented as of this encounter Procedures Procedure Name Priority Date/Time Associated Diagnosis Comments MR HEAD W/WO CONTRAST Routine 06/04/2016 11:56 EST Vertigo Labyrinthine vestibulitis, unspecified laterality documented in this encounter Results * MR HEAD W/WO CONTRAST (06/04/2016 11:56 EST) Anatomical Region Laterality Modality Other 06/04/2016 11:5 6 EST 06/04/2016 13:04 EST Narrative 06/04/2016 13:04 EST MRI BRAIN WITH AND WITHOUT CONTRAST: ?? June 04, 2016 Indication: ?? 35-year-old female with vertigo. Comparison: ??None Available. Technique: MR examination was performed the brain utilizing the following sequences: Volumetric T1 pre and postcontrast Volumetric T2 FLAIR Axial T2, T2 GRE SWI and diffusion Thin section axial T2 3-D DRIVE, T1 pre and post contrast FS and coronal T1 post contrast FS MR images were also obtained through the regions of the internal auditory canals. Findings: ?? There is no evidence of mass, hemorrhage or acute infarction. Ventricular system is normal in size and configuration for patient's age. Danielson-white matter differentiation is well-maintained. Intracranial vascular flow-voids are normally visualized. No extra-axial collection is seen. Calvarial osseous and scalp soft tissue structures are grossly normal. The orbital soft tissues and visualized paranasal sinuses are unremarkable. No abnormal enhancement is seen following contrast administration. ?? Specifically, no abnormality of the cerebellar pontine angles or internal auditory canals is appreciated. Impression: ??Normal contrast enhanced MRI of the brain and internal auditory canals. Procedure Note Walter Blake MD - 06/04/2016 MRI BRAIN WITH AND WITHOUT CONTRAST: June 04, 2016 Indication: 35-year-old female with vertigo. Comparison: None Available. Technique: MR examination was performed the brain utilizing the following sequences: Volumetric T1 pre and postcontrast Volumetric T2 FLAIR Axial T2, T2 GRE SWI and diffusion Thin section axial T2 3-D DRIVE, T1 pre and post contrast FS and coronal T1 post contrast FS MR images were also obtained through the regions of the internal auditory canals. Findings: There is no evidence of mass, hemorrhage or acute infarction. Ventricular system is normal in size and configuration for patient's age. Danielson-white matter differentiation is well-maintained. Intracranial vascular flow-voids are normally visualized. No extra-axial collection is seen. Calvarial osseous and scalp soft tissue structures are grossly normal. The orbital soft tissues and visualized paranasal sinuses are unremarkable. No abnormal enhancement is seen following contrast administration. Specifically, no abnormality of the cerebellar pontine angles or internal auditory canals is appreciated. Impression: Normal contrast enhanced MRI of the brain and internal auditory canals. Elliott Ledezma MD [facility] [place] S * C REACTIVE PROTEIN (05/09/2016 11:24 EDT) C Reactive Protein 7.4 <10.0 mg/L 05/09/2016 13:24 EDT [facility] Blood specimen (specimen) BLOOD SPECIMEN / Unknown 05/09/2016 11:24 EDT 05/09/2016 12:33 EDT Elliott Ledezma MD CHEMISTRY & BLOOD GAS ORDERABLES Performing Organization Address [facility] Co de Phone Number [facility] [address] [place] [address] * SED. RATE:WESTERGREN (05/09/2016 11:24 EDT) Pathologist [facility] Sed. Rate Westergren 3 0 - 20 mm/hr 05/09/2016 12:49 EDT [facility] Blood specimen (specimen) BLOOD SPECIMEN / Unknown 05/09/2016 11:24 EDT 05/09/2016 12:33 EDT Elliott Ledezma MD HEMATOLOGY & PF4 ORDERABLES Performing Organization Address [facility] de Phone Number [facility] [address] [place] [address] * LYME AB (05/09/2016 11:24 EDT) [facility] Lyme AB Negative 05/10/2016 13:04 EDT [facility] Comment:Reference Range: Neg ative Blood specimen (specimen) BLOOD SPECIMEN / Unknown 05/09/2016 11:24 EDT 05/09/2016 12:33 EDT Elliott Ledezma MD IMMUNOLOGY AND SE ROLOGY ORDERABLES Performing Organization Address [facility] Co de Phone Number [facility] [address] [place] [address] * HEMAGRAM AND DIFFERENTIAL (05/09/2016 11:24 EDT) [facility] WBC 7.40 4.0 - 12.4 K/cmm 05/09/2016 12:51 EDT [facility] RBC 4.53 3.86 - 5.04 M/cmm 05/09/2016 12:51 EDT [facility] Hemoglobin 13.8 11.6 - 15.2 gm/dl 05/09/2016 12:51 [facility] HCT 38.9 34.9 - 44.4 % 05/09/2016 12:51 [facility] MCV 86 81 - 98 fl 05/09/2016 12:51 [facility] MCH 30.5 26.7 - 33.3 pg 05/09/2016 12:51 [facility] MCHC 35.5 32.1 - 35.9 gm/dl 05/09/2016 12:51 [facility] RDW-CV 12.8 11.7 - 14.6 % 05/09/2016 12:51 [facility] RDW-SD 39.9 37.6 - 50.3 fl 05/09/2016 12:51 [facility] PLT 301 141 - 377 K/cmm 05/09/2016 12:51 [facility] MPV 11.7 9.5 - 12.7 fl 05/09/2016 12:51 [facility] % Neutrophils 65.0 % 05/09/2016 12:51 [facility] % Lymphocytes 25.5 % 05/09/2016 12:51 [facility] % Monocytes 7.6 % 05/09/2016 12:51 [facility] % Eosinophils 1.1 % 05/09/2016 12:51 [facility] % Basophils 0.4 % 05/09/2016 12:51 [facility] % Immature Grans 0.4 % 05/09/2016 12:51 [facility] ABS Neutrophils 4.81 2.20 - 8.85 K/cmm 05/09/2016 12:51 [facility] ABS Lymphs 1.89 1.09 - 3.30 K/cmm 05/09/2016 12:51 [facility] ABS Monocytes 0.56 0.1 - 0.8 K/cmm 05/09/2016 12:51 [facility] ABS Eosinophils 0.08 0.03 - 0.61 K/cmm 05/09/2016 12:51 [facility] ABS Basophils 0.03 0.01 - 0.11 K/cmm 05/09/2016 12:51 EDT [facility] ABS Immature Grans 0.03 0 - 0.06 K/cmm 05/09/2016 12:51 EDT [facility] Type of Diff: Automated 05/09/2016 12:51 EDT [facility] Blood specimen (specimen) BLOOD SPECIMEN / Unknown 05/09/2016 11:24 EDT 05/09/2016 12:33 EDT Elliott Ledezma MD PACKAGES & DNA ND OBE ORDERABLES [facility] [address] [place] [address] documented in this encounter Visit Diagnoses Diagnosis Vertigo- Primary Dizziness and giddiness Labyrinthine vestibulitis, unspecified laterality Small fiber neuropathy Unspecified hereditary and idiopathic peripheral neuropathy documented in this encounter Historical Medications * This list may reflect changes made after this encounter. Medication Sig Dispensed Refills Start Date End Date meclizine (ANTIVERT) 25 mg tablet Take 25 mg by mouth 2 times daily. Reported on 08/18/2016 07/31/2019 added in this encounter Care Teams Armature Winder Helper Repair Relationship Specialty Start Date End Date Angelic Silva APRN [address] [place] [address] PCP - General 05/05/16 03/26/20 documented as of this encounter
--- OUTSIDE RECORDS SUMMARY | 2024-01-26 12:54 | XMS_ITS | Encounter Summary ---
Author Organization [facility] Address [address] [place] [address] Care Team Providers Care Filling Machine Operator Name Role Phone RicardoCarleysusanne Gutierrez APRN Primary Care Provider [phone] [phone] Reason for Visit * Reason Onset Date Comments Follow-up 07/31/2019 Encounter Details Date Type Department Care Team (Late st Contact Info) Description 07/31/[address] [phone] Kushal Esparza LICSW [address] [place] [phone] Follow-up Social History Tobacco Use Types Packs/Day [...] Contact Info) Description 01/31/2024 10:15 EDT Telemedicine [address] [phone] Med Maldonado MD [address] [place] [address] [address] [place] [phone] 08/31/2024 9:40 EST Appointment Naz Perez [address] [phone] documented as of this encounter Visit Diagnoses Not on filedocumented in this encounter Care Teams Filling Machine Operator Relationship Specialty Start Date End Date Angelic Silva APRN [address] [place] [address] PCP - General 05/05/16 03/26/20 documented as of this encounter
--- OUTSIDE RECORDS SUMMARY | 2024-01-26 12:54 | XMS_ITS | Encounter Summary ---
Author Organization [facility] Address [address] [place] [address] Care Team Providers Care Pairer Substandard Name Role Phone Angelic Silva APRN Primary Care Provider [phone] Reason for Visit * Reason Onset Date Comments Dizziness 05/25/2016 Encounter Details Date Type Department Care Team (Late st Contact Info) Description 05/25/2016 Telephone [facility] ENT- Main [place] [address] [place] [address] Sarah Douglas RN [address] [place] [address] Dizziness Social History Tobacco Use Types Packs/Day Years [...] encounter Miscellaneous Notes * Telephone Encounter - Sarah Douglas - 05/26/2016 2454 EST Patient has been triaged with our dizziness screening protocol and notes have been reviewed. It hasbeen determined that patient would benefit from an evaluation with vestibular rehab with physical therapy. Patient denies any hearing difficulty, tinnitus, fullness, ear pain, or trauma to ears. Patient was seen by neurology on 05/09/16 who have recommended an MRI of the brain to exclude demyelinating pathology. Neurology feels that this is possibly viral vestibulitis. A call has been made to primary care office to advise that patient may want to pursue vestibular rehab. Patient currently has an appointment with Dr Rubio, ENT in [facility] on 06/21/16. Recommended that patient keep this appointment with Dr Rubio. PCP's office advised that we are unable to see patient sooner than our next available which is in August. They will discuss this with patient's PCP. * Telephone Encounter - Sarah Douglas - 05/26/2016 1054 EST Awaiting notes from PCP * Telephone Encounter - Jessie Brewster - 05/25/2016 0955 EST PCP referring pt for dizziness. They will fax notes. They are aware that we will contact the patient. documented in this encounter Plan of Treatment Upcoming Encounters Date Type Department Care Team (Late st Contact Info) Description 01/31/2024 10:15 EDT Telemedicine [facility] Neurology - [address] [place] [address] [place], [place] [address] Med Maldonado MD [address] [place] [address], [address] [place] [phone] 08/31/2024 9:40 EST Appointment Naz Perez [address] [phone] documented as of this encounter Visit Diagnoses Not on filedocumented in this encounter Care Teams Pairer Substandard Relationship Specialty Start Date End Date Angelic Silva APRN [address] [place] [address] PCP - General 05/05/16 03/26/20 documented as of this encounter
--- OUTSIDE RECORDS SUMMARY | 2024-01-26 12:54 | XMS_ITS | Encounter Summary ---
Author Organization [facility] Address [address] [place] [address] Care Team Providers Care Glove Printer Name Role Phone Bonita Saldana Primary Care Provider Unavailable Encounter Details Date Type Department Care Team (Late st Contact Info) Description 06/17/2013 Results Only [facility] - [facility] ([facility]) [address] [place] [id number] Nesha Parada MD [address] [place] [phone] Social History Tobacco Use Types Packs/Day [...] EDT Telemedicine [facility] - S [address] [phone] Med Maldonado MD [address] [place] [address], Level 2 [place] [phone] 08/31/2024 9:40 EST Appointment Naz Perez [facility] [address] [place] [address] Pending Results Name Type Priority Associated Diagnoses Date /Time PROFILE AND VARICELLA Lab Routine 06/17/2013 14:43 EST documented as of this encounter Procedures Procedure Name Priority Date/Time Associated Diagnosis Comments BB STUDY Routine 06/17/2013 14: 43 EST SYPHILIS SEROLOGY Routine 06/17/2013 14: 43 EST DIFFERENTIAL Routine 06/17/2013 14:43 EST RUBELLA IGG ANTIBODY Routine 06/17/2013 14:43 EST HEPATITIS B SURFACE ANTIGEN Routine 06/17/2013 14:43 EST COMPLETE BLOOD COUNT Routine 06/17/2013 14:43 EST BACTERIAL CULTURE, URINE Routine 06/17/2013 14:43 EST VARICELLA IGG ANTIBODY Routine 06/17/2013 14:43 EST HIV 1/2 ANTIGEN AND ANTIBODY, 4TH GENERATION Routine 06/17/2013 14:43 EST documented in this encounter Results * SYPHILIS SEROLOGY (06/17/2013 14:43 EST) Syphilis Serology Interpretation: Nonreactive [facility] Comment:Reference Range: Non reactive 06/17/2013 14:4 3 EST 06/17/2013 19:48 EST Nesha Parada MD IMMUNOLOGY AND SERO LOGY ORDERABLES [facility] [address] [place] [address] * VARICELLA IGG ANTIBODY (06/17/2013 14:43 EST) Varicella IgG Ab Interpretati on: Negative [facility] Comment: Absence of detectable Varicella Zoster virus IgG antibodies. ??A negative result indicates no detectable antibody, but does not rule out acute infection. ??If VZV exposure is suspected, a second sample should be collected and tested in no less than one or two weeks later. 06/17/2013 14:4 3 EST 06/17/2013 19:48 EST Nesha Parada MD IMMUNOLOGY AND SERO LOGY ORDERABLES Performing Organization Address [facility] Phone Number [facility] [address] [place] [address] * RUBELLA IGG ANTIBODY (06/17/2013 14:43 EST) Rubella IgG Ab Positive [facility] Comment: Positive results suggest immunity to Rubella infection. 06/17/2013 14:4 3 EST 06/17/2013 19:48 EST Nesha Parada MD CHEMISTRY & BLOOD G ORDERABLES Performing Organization Address [facility] Phone Number [facility] [address] [place] [address] * HEPATITIS B SURFACE ANTIGEN (06/17/2013 14:43 EST) Pathologist [facility] Hepatitis B Surface Ag Negative [facility] Comment:Reference Range: Neg ative 06/17/2013 14:4 3 EST 06/17/2013 19:48 EST Nesha Parada MD CHEMISTRY & BLOOD G ORDERABLES Performing Organization Address [facility] Phone Number [facility] [address] [place] [address] * DIFFERENTIAL (06/17/2013 14:43 EST) Neutrophils 76.0 45.5 - 79.7 % [facility] Lymphocytes 18.0 15.0 - 46.8 % [facility] % Atyp Lymphs 1.0 % [facility] Monocytes 3.0 1.8 - 12.0 % [facility] Eosinophils 2.0 0.6 - 6.9 % [facility] ABS Neutrophils 7.74 2.20 - 8.85 K/cmm [facility] ABS Lymphs 1.83 1.09 - 3.30 K/cmm [facility] ABS Atyp Lymphs 0.10 K/cmm [facility] ABS Monocytes 0.31 0.1 - 0.8 K/cmm [facility] ABS Eosinophils 0.20 0.03 - 0.61 K/cmm [facility] RBC Morphology 1+ [facility] Comment: Microcytes 1+ Anisocytosis WBC Morphology 1+ [facility] Comment:Toxic granulation Platelet Morphology 1+ [facility] Comment:Large platelets Type of Diff: Manual [facility] 06/17/2013 14:4 3 EST 06/17/2013 19:48 EST Nesha Parada MD HEMATOLOGY & PF4 OR DERABLES Performing Organization Address [facility] de Phone Number [facility] [address] [place] [address] * BB STUDY (06/17/2013 14:43 EST) ABO and Rh Type A POSITIVE [facility] Antibody Screen Neg [facility] 06/17/2013 14:4 3 EST 06/17/2013 19:48 EST Nesha Parada MD BLOOD BANK TESTS Performing Organization Address [facility] Co de Phone Number [facility] [address] [place] [address] * BACTERIAL CULTURE, URINE (06/17/2013 14:43 EST) Specimen Description Urine [facility] Result 10,000 to 100,000 CFU/ml Usual urogenital mitch. [facility] Report Status 06/19/2013 Final [facility] URINE / Unknown 06/17/2013 1 4:43 EST 06/17/2013 20:12 EST Nesha Parada MD MICROBIOLOGY - GENE RAL ORDERABLES Performing Organization Address [facility] Co de Phone Number [facility] [address] [place] [address] * HEMAGRAM (06/17/2013 14:43 EST) WBC 10.18 4.0 - 12.4 K/cmm [facility] RBC 4.46 3.86 - 5.04 M/cmm [facility] Hemoglobin 13.6 11.6 - 15.2 gm/dl [facility] HCT 38.5 34.9 - 44.4 % [facility] MCV 86 81 - 98 fl [facility] MCH 30.6 26.7 - 33.3 pg [facility] MCHC 35.4 32.1 - 35.9 gm/dl [facility] PLT 253 141 - 320 K/cmm [facility] RDW-CV 13.3 11.7 - 14.6 % [facility] 06/17/2013 14:4 3 EST 06/17/2013 19:48 EST Nesha Parada MD HEMATOLOGY & PF4 OR DERABLES Performing Organization Address City/[facility]/ZIP Co de Phone Number [facility] [address] [place] [address] * HIV 1/2 ANTIBODY (06/17/2013 14:43 EST) Pathologist [facility] HIV 1/[address] [facility] Comment: Reference Range: ??Negative Assayed utilizing [employer] chemiluminescent technology. 06/17/2013 14:4 3 EST 06/17/2013 19:48 EST Nesha Parada MD IMMUNOLOGY AND SERO LOGY ORDERABLES Performing Organization Address City/[facility]/ZIP Co de Phone Number [facility] [address] [place] [address] documented in this encounter Visit Diagnoses Not on filedocumented in this encounter Care Teams Glove Printer Relationship Specialty Start Date End Date Bonita Saldana PCP - General 01/31/13 01/15/14 documented as of this encounter
--- OUTSIDE RECORDS SUMMARY | 2024-01-26 12:54 | XMS_ITS | Encounter Summary ---
Author Organization [facility] Address [address] [place] [address] Care Team Providers Care Rn Medication Name Role Phone Unknown, Provider Primary Care Provider [phone] Reason for Visit * Reason Comments Follow-up Pins and needles sta rting again in feet. Encounter Details Date Type Department Care Team (Late st Contact Info) Description 09/07/2015 8:30 EST Office Visit [facility] - S [address] [id number] Elliott Ledezma MD [address] [place] [address], Level [address] [place] [phone] Small fiber neuropathy (Primary Dx); Carpal tunnel syndrome, left Social History Tobacco Use Types Packs/Day Years [...] Sign Reading Time Taken Comments Blood Pressure 112/78 09/07/2015 0822 EST Pulse 80 09/07/2015 0822 EST Temperature - - Respiratory Rate 16 09/07/2015 0822 EST Oxygen Saturation 98% 09/07/2015 0822 EST Inhaled Oxygen Concentration - - Weight 78.5 kg (173 lb) 09/07/2015 0822 EST Height 172.7 cm (5' 8) 09/07/2015 0822 EST Body Mass Index 26.3 09/07/2015 0822 EST documented in this encounter Discharge Diagnoses Diagnosis G62.9 Polyneuropathy, unspecified-G62.9[ICD-10-CM] G56.02 Carpal tunnel syndrome, left upper limb-G56.02[ICD-10-CM] documented in this encounter Progress Notes * Elliott Ledezma MD - 09/07/2015 1253 EST This office note has been dictated. * Elliott Ledezma MD - 09/07/[address] [facility] NEUROLOGY NEUROMUSCULAR PROGRESS / FOLLOWUP NOTE - 09/07/2015 [place] [address] Nunn: I had the pleasure of seeing your patient, Yolette Tellez, for ongoing sensory disturbance in handsand feet. Yolette is a 34-year-old woman whom I have followed since 2011 for numbness, which is primarily localized over feet and spreads up to mid george. She has occasionally had intermittent numbness of her left hand. Numbness is described as tingling in nature. She continues to be without imbalance, tripping, falls. She has had an extensive evaluation for this issue, including 2 EMG nerve conduction studies, which were normal, an epidermal nerve fiber biopsy in 2011, which was interpreted as normal, as well as laboratory tests including multiple evaluations for diabetes, B12 deficiency, SPEP and immunofixation, SSA and SSB antibodies, rheumatoid factor, hepatitis C, serum cryoglobulinemia. She has also had an MRI of her brain on 2 occasions, an MRI of her spinal cord on one occasion in 2011, all of which have come back normal. 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 Since her last visit to clinic in April 2015, she did notice some improvement in symptoms in feet and then the symptoms have recurred in the last few weeks. Her symptoms in hands have largely resolved at this juncture. At this point, she does not believe that the symptoms are painful and would warrant treatment with a neuropathic pain agent. Past medical, social and family histories are as previously dictated. Physical Exam: Blood pressure 112/78, heart rate 80, respiratory rate 16, weight 78 kg. This is an average weight woman who is in no acute distress. Neurological exam: She is alert and oriented x3. Language: No aphasia or dysarthria. Motor exam: Negative pronator drift, normal tone and bulk, full power of her upper and lower extremities including shoulder abduction, elbow flexion/extension, wrist flexion/extension, finger spread,deep finger flexors, thumb abduction, hip flexion, knee flexion, ankle dorsiflexion, great toe exten alphonso. Sensory: Well preserved sharp, dull discrimination at the distal foot with gradient to mid george bilaterally. Normal pin sensation in the upper extremities. Positive shield sign on the abdomen. Normalvibration at toes. Reflexes: 2+ bilateral biceps, brachioradialis, knee jerks and ankle jerks. Gait: Normal casual gait. Twenty-five minutes spent with the patient today, of which 15 was spent in counseling and coordination of plan of care. Impression: Small fiber sensory neuropathy: The patient continues to show length dependent small fiber sensory loss in isolation. Her exam is similar to that documented in the fall of 2014. At this point, she has had an extensive workup and I do not recommend additional laboratory testing at this time. Should her sensory symptoms begin to rapidly worsen over the next few months, I would recommend that we repeat an MRI of her cervical and thoracic spine since she had a period of improvement followed by a period of worsening, which could be indicative of a central nervous system process such as MS, which can sometimes masquerade as a small fiber sensory neuropathy in light of the above negative workup mentioned in the history of present illness. At this point, she does not believe the pain is bad enough to warrant medication so we have electednot to start a neuropathic pain agent. 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 Thank you for allowing me to participate in the care of your patient. I will see her in followup in1 year. Please do not hesitate to call with any questions or concerns. Sincerely, Elliott Ledezma MD Rail Manager of Neurology Neurology Attending Physician ABPN Board Certified, Neurology and Neuromuscular Medicine ABEM Board Certified, EMG - Elliott Ledezma MD mn Dictation ID: [id number] cc: Earl Nunn MD documented in this encounter Plan of Treatment Upcoming Encounters Date Type Department Care Team (Late st Contact Info) Description 01/31/2024 10:15 EDT Telemedicine [facility] - S [place] [address] [place] [address] Med Maldonado MD [address] [place] [address], Level [address] [place] [phone] 08/31/2024 9:40 EST Appointment Naz Perez [address] [address] documented as of this encounter Visit Diagnoses Diagnosis Small fiber neuropathy- Primary Unspecified hereditary and idiopathic peripheral neuropathy Carpal tunnel syndrome, left Carpal tunnel syndrome documented in this encounter Discontinued Medications Medication Sig Discontinue Reason Start Date End Da te amitriptyline (ELAVIL) 10 mg tabletIndications:Small fiber neuropathy Take 1 pill bedtime for 1 week, then increase 2 pills bedtime. Therapy completed 04/13/2015 09/07/2015 ferrous sulfate 324 mg (65 mg iron) tablet,delayed release (DR/EC) Take 324 mg by mouth daily with breakfast. Therapy completed 09/07/2015 lansinoh HPA lanolin Use as needed for breast feeding. Therapy completed 01/09/2014 09/07/2015 multivitamin vit-iron fumarate-FA (STUARTNATAL) 27 mg iron- 1 mg tablet tablet Take 1 Tab by mouth daily. Therapy completed 01/09/2014 09/07/2015 documented as of this encounter Care Teams Rn Medication Relationship Specialty Start Date End Date Unknown, Provider, PCP - General 09/02/15 05/04/16 documented as of this encounter
--- OUTSIDE RECORDS SUMMARY | 2024-01-26 12:54 | XMS_ITS | Encounter Summary ---
Author Organization [facility] Address [address] [place] [address] Care Team Providers Care Php Engineer Name Role Phone Angelic Silva APRN Primary Care Provider [phone] Encounter Details Date Type Department Care Team (Latest Contact Info) Description 06/04/2016 10:11 EST - 06/04/2016 23:59 EST Hospital Encounter [facility] - [address] [address] Elliott Ledezma MD [address] [place] [address] [address] [place] [phone] Discharge Disposition: Auto Discharge Social History Tobacco [...] as of this encounter Discharge Diagnoses Diagnosis R42 Dizziness and giddiness-R42[ICD-10-CM] documented in this encounter Medications at Time [...] Disposition Code Departure Means Destination Auto Discharge Home documented in this encounter Plan of Treatment Upcoming Encounters Date Type Department Care Team (Late st Contact Info) Description 01/31/2024 10:15 EDT Telemedicine [facility] Neurology - S [address] [phone] Med Maldonado MD [address] [place] [address], Level [address] [place] [phone] 08/31/2024 9:40 EST Appointment Naz Perez [address] [phone] documented as of this encounter Visit Diagnoses Not on filedocumented in this encounter Care Teams Php Engineer Relationship Specialty Start Date End Date Angelic Silva APRN [address] [place], [place] [id number] PCP - General 05/05/16 03/26/20 documented as of this encounter
--- OUTSIDE RECORDS SUMMARY | 2024-01-26 12:54 | XMS_ITS | Encounter Summary ---
Author Organization [facility] Address [address] [place] [address] Care Team Providers Care Employment Recruiter Name Role Phone Angelic Silva APRN Primary Care Provider [phone] Reason for Visit * Reason Onset Date Comments Orders (Non Pre-visit) 05/09/2016 Encounter Details Date Type Department Care Team (Late st Contact Info) Description 05/09/2016 Telephone [facility] Neurology - [address] [phone] Elliott Ledezma MD [address] [place] [address] [address] [place] [phone] Orders (Non Pre-visit) Social History Tobacco Use Types Packs/Day Years [...] Telephone Encounter - Louisa Reyna RN - 05/20/2016 9414 EST RX for wrist braces FAxed:[phone]. * Telephone Encounter - Elliott Ledezma MD - 05/09/2016 2107 EDT Generic DME order placed. Please send to appropriate medical supply store. * Telephone Encounter - Louisa Reyna RN - 05/09/2016 1530 EDT TC Pt Asking for RX for Wrist braces.lives in [facility]. Pt to call back with name of local medical supply store. * Telephone Encounter - Jessie Contreras - 05/09/2016 1220 EDT Yolette calling- during her appointment, she and Dr. Ledezma discussed wrist braces, but she did not get an RX for these. Wondering if insurance would cover this? Directed Pt to the local medical supply store ([facility], [place]) and she will look to see what they have. Would like a call back with further information. (Dr. Ledezma's note not yet completed, unable to view for additional information at this time). documented in this encounter Plan of Treatment Upcoming Encounters Date Type Department Care Team (Late st Contact Info) Description 01/31/2024 10:15 EDT Telemedicine [facility] Neurology - S [place] [address] [place], [place] [address] Med Maldonado MD [address] [place] [address], [address] [place] [phone] 08/31/2024 9:40 EST Appointment Naz Perez [address] [phone] documented as of this encounter Visit Diagnoses Diagnosis Bilateral carpal tunnel syndrome- Primary Carpal tunnel syndrome documented in this encounter Orders Equipment Count Last Ordered Date First Orde red Date GENERIC DME ORDER 1 05/09/2016 documented in this encounter Care Teams Employment Recruiter Relationship Specialty Start Date End Date Angelic Silva APRN [address] [place] [address] PCP - General 05/05/16 03/26/20 documented as of this encounter
--- OUTSIDE RECORDS SUMMARY | 2024-01-26 12:54 | XMS_ITS | Encounter Summary ---
Author Organization [facility] Address [address] [place] [address] Care Team Providers Care Entertainment Reporter Name Role Phone Ricardo Angelicrashaad Gutierrez APRN Primary Care Provider [phone] Encounter Details Date Type Department Care Team (Late st Contact Info) Description 05/09/2016 Phlebotomy Only [facility] [address] [place] [address] Electrical Linesworker, Outpatient Vertigo; Labyrinthine vestibulitis, unspecified laterality Social History Tobacco Use Types Packs/Day Years [...] Contact Info) Description 01/31/2024 10:15 EDT Telemedicine [facility] Neurology - S [address] [phone] Med Maldonado MD [address] [place] [address], [address] [place] [phone] 08/31/2024 9:40 EST Appointment Naz Perez [address] [address] documented as of this encounter Procedures Procedure Name Priority Date/Time Associated Diagnosis Comments LYME AB Routine 05/09/2016 11:24 EDT Vertigo Labyrinthine vestibulitis, unspecified laterality SED RATE Routine 05/09/2016 11:24 EDT Vertigo Labyrinthine vestibulitis, unspecified laterality COMPLETE BLOOD COUNT AND DIFFERENTIAL Routine 05/09/2016 11:24 EDT Vertigo Labyrinthine vestibulitis, unspecified laterality C REACTIVE PROTEIN Routine 05/09/2016 11 :24 EDT Vertigo Labyrinthine vestibulitis, unspecified laterality documented in this encounter Results * C REACTIVE PROTEIN (05/09/2016 11:24 EDT) C Reactive Protein 7.4 <10.0 mg/L 05/09/2016 13:24 EDT [facility] Blood specimen (specimen) BLOOD SPECIMEN / Unknown 05/09/2016 11:24 EDT 05/09/2016 12:33 EDT Elliott Ledezma MD CHEMISTRY & BLOOD GAS ORDERABLES Performing Organization Address City/[facility]/ZIP Co de Phone Number [facility] [address] [place] [address] * SED. RATE:WESTERGREN (05/09/2016 11:24 EDT) Sed. Rate Westergren 3 0 - 20 mm/hr 05/09/2016 12:49 EDT [facility] Blood specimen (specimen) BLOOD SPECIMEN / Unknown 05/09/2016 11:24 EDT 05/09/2016 12:33 EDT Elliott Ledezma MD HEMATOLOGY & PF4 ORDERABLES [facility] [address] [place] [address] * LYME AB (05/09/2016 11:24 EDT) Lyme AB Negative 05/10/2016 13:04 [facility] Comment:Reference Range: Neg ative Blood specimen (specimen) BLOOD SPECIMEN / Unknown 05/09/2016 11:24 EDT 05/09/2016 12:33 EDT Elliott Ledezma MD IMMUNOLOGY AND SE ROLOGY ORDERABLES [facility] [address] [place] [address] * HEMAGRAM AND DIFFERENTIAL (05/09/2016 11:24 EDT) WBC 7.40 4.0 - 12.4 K/cmm 05/09/2016 12:51 [facility] RBC 4.53 3.86 - 5.04 M/cmm 05/09/2016 12:51 [facility] Hemoglobin 13.8 11.6 - 15.2 gm/dl 05/09/2016 12:51 [facility] HCT 38.9 34.9 - 44.4 % 05/09/2016 12:51 [facility] MCV 86 81 - 98 fl 05/09/2016 12:51 [facility] MCH 30.5 26.7 - 33.3 pg 05/09/2016 12:51 [facility] MCHC 35.5 32.1 - 35.9 gm/dl 05/09/2016 12:51 [facility] RDW-CV 12.8 11.7 - 14.6 % 05/09/2016 12:51 [facility] RDW-SD 39.9 37.6 - 50.3 fl 05/09/2016 12:51 [facility] PLT 301 141 - 377 K/cmm 05/09/2016 12:51 [facility] MPV 11.7 9.5 - 12.7 fl 05/09/2016 12:51 [facility] % Neutrophils 65.0 % 05/09/2016 12:51 EDT [facility] % Lymphocytes 25.5 % 05/09/2016 12:51 [facility] % Monocytes 7.6 % 05/09/2016 12:51 [facility] % Eosinophils 1.1 % 05/09/2016 12:51 [facility] % Basophils 0.4 % 05/09/2016 12:51 [facility] % Immature Grans 0.4 % 05/09/2016 12:51 [facility] ABS Neutrophils 4.81 2.20 - 8.85 K/cmm 05/09/2016 12:51 [facility] ABS Lymphs 1.89 1.09 - 3.30 K/cmm 05/09/2016 12:51 [facility] ABS Monocytes 0.56 0.1 - 0.8 K/cmm 05/09/2016 12:51 [facility] ABS Eosinophils 0.08 0.03 - 0.61 K/cmm 05/09/2016 12:51 [facility] ABS Basophils 0.03 0.01 - 0.11 K/cmm 05/09/2016 12:51 [facility] ABS Immature Grans 0.03 0 - 0.06 K/cmm 05/09/2016 12:51 [facility] Type of Diff: Automated 05/09/2016 12:51 [facility] Blood specimen (specimen) BLOOD SPECIMEN / Unknown 05/09/2016 11:24 EDT 05/09/2016 12:33 EDT Elliott Ledezma MD PACKAGES & DNA OK OBE ORDERABLES [facility] [address] [place] [address] documented in this encounter Visit Diagnoses Diagnosis Vertigo Dizziness and giddiness Labyrinthine vestibulitis, unspecified laterality documented in this encounter Care Teams Entertainment Reporter Relationship Specialty Start Date End Date Angelic Silva APRN [address] [place] [address] PCP - General 05/05/16 03/26/20 documented as of this encounter
--- OUTSIDE RECORDS SUMMARY | 2024-01-26 12:54 | XMS_ITS | Encounter Summary ---
Author Organization [facility] Address [address] [place] [address] Care Team Providers Care Superintendent Seed Mill Name Role Phone Angelic Silva APRN Primary Care Provider [phone] Reason for Visit * Reason Onset Date Comments Appointment Related 05/09/2016 Encounter Details Date Type Department Care Team (Late st Contact Info) Description 05/09/2016 Telephone [facility] Neurology - S [address] [id number] Elliott Ledezma MD [address] [place] [address], Level 2 [place] [address] Appointment Related Social History Tobacco Use Types [...] Miscellaneous Notes * Telephone Encounter - Laurita Monae - 05/09/2016 1644 EDT Called and spoke to Yolette - provided MRI appointment details below - * Telephone Encounter - Laurita Monae - 05/09/2016 1643 EDT ----- Message from Elise Steven sent at 05/09/2016 11:43 EDT ----- Regarding: ORIONR This patient is scheduled for MRI on Monday06/04/16 at 10:30am, arriving to registration at 10am, [facility]. Thanks, Elise documented in this encounter Plan of Treatment Upcoming Encounters Date Type Department Care Team (Late st Contact Info) Description 01/31/2024 10:15 EDT Telemedicine [facility] Neurology - S [address] [id number] Med Maldonado MD [address] [place] [address], Level 2 [place] [phone] 08/31/2024 9:40 EST Appointment Naz Perez [address] [id number] documented as of this encounter Visit Diagnoses Not on filedocumented in this encounter Care Teams Superintendent Seed Mill Relationship Specialty Start Date End Date Angelic Silva APRN [address] [place] [address] PCP - General 05/05/16 03/26/20 documented as of this encounter
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
--- OUTSIDE RECORDS SUMMARY | 2024-01-26 12:54 | XMS_ITS | Encounter Summary ---
Author Organization [facility] Address [address] [place] [address] Care Team Providers Care Tabber Name Role Phone Bonita Saldana Primary Care Provider Unavailable Encounter Details Date Type Department Care Team (Late st Contact Info) Description 12/30/2013 Results Only [facility] Laboratory Services - [facility] ([facility] [address] [place] [phone] Nesha Parada MD [address] [place] [phone] Social History Tobacco Use Types Packs/Day [...] Telemedicine [facility] Neurology - S [address] [phone] Med Maldonado MD [address] [place] [address] [address] [place] [phone] 08/31/2024 9:40 EST Appointment Naz Perez [facility] [address] [place] [address] Pending Results Name Type Priority Associated Diagnoses Date /Time PREECLAMPTIC PROFILE Lab Routine 12/09 10:35 EDT documented as of this encounter Procedures Procedure Name Priority Date/Time Associated Diagnosis Comments PROTEIN, TOTAL, RANDOM, URINE Routine 12/30/2013 10:37 EDT CREATININE, URINE RANDOM Routine 12/30/2013 10:37 EDT COMPLETE BLOOD COUNT Routine 12/30/2013 10:35 EDT URIC ACID Routine 12/30/2013 10:35 EDT BUN Routine 12/30/2013 10:35 EDT ALT Routine 12/30/2013 10:35 EDT AST Routine 12/30/2013 10:35 EDT CREATININE Routine 12/30/2013 10:35 EDT documented in this encounter Results * CREATININE, URINE RANDOM (12/30/2013 10:37 EDT) Creatinine, Urn [place] 206.5 mg/dl [facility] 12/30/2013 10:3 7 EDT 12/30/2013 12:50 EDT Nesha Parada MD URINALYSIS ORDERABL ES [facility] [address] [place] [address] * TOTAL PROTEIN, URINE RANDOM (12/30/2013 10:37 EDT) Tot Prot,Ur Random <5 mg/dl [facility] 12/30/2013 10:3 7 EDT 12/30/2013 12:50 EDT Nesha Parada MD URINALYSIS ORDERABL ES Performing Organization Address City/[facility] Co de Phone Number [facility] [address] [place] [address] * URIC ACID (12/30/2013 10:35 EDT) Uric Acid 5.0 2.2 - 7.7 mg/dl [facility] 12/30/2013 10:3 5 EDT 12/30/2013 12:51 EDT Nesha Parada MD CHEMISTRY & BLOOD G ORDERABLES Performing Organization Address [facility] de Phone Number [facility] [address] [place] [address] * (ABNORMAL) CREATININE (12/30/2013 10:35 EDT) Creatinine 0.37(L) 0.52 - 1.04 mg/dl [facility] GFR, Calculated >60 >60 ml/min/1.7 3m2 [facility] 12/30/2013 10:3 5 EDT 12/30/2013 12:51 EDT Nesha Parada MD CHEMISTRY & BLOOD G ORDERABLES Performing Organization Address [facility]/ZIP Co de Phone Number [facility] [address] [place] [address] * (ABNORMAL) BUN (12/30/2013 10:35 EDT) BUN 9(L) 10 - 26 mg/dl [facility] 12/30/2013 10:3 5 EDT 12/30/2013 12:51 EDT Nesha Parada MD CHEMISTRY & BLOOD G ORDERABLES Performing Organization Address [facility]/ZIP Co de Phone Number [facility] [address] [place] [address] * AST (12/30/2013 10:35 EDT) AST 22 15 - 46 U/L [facility] 12/30/2013 10:3 5 EDT 12/30/2013 12:51 EDT Nesha Parada MD CHEMISTRY & BLOOD G ORDERABLES Performing Organization Address City/[facility]/ZIP Co de Phone Number [facility] [address] [place] [address] * ALT (12/30/2013 10:35 EDT) ALT 20 9 - 52 U/L [facility] 12/30/2013 10:3 5 EDT 12/30/2013 12:51 EDT Nesha Parada MD CHEMISTRY & BLOOD G ORDERABLES Performing Organization Address [facility] Co de Phone Number [facility] [address] [place] [address] * (ABNORMAL) HEMAGRAM (12/30/2013 10:35 EDT) WBC 9.11 4.0 - 12.4 K/cmm [facility] RBC 3.94 3.86 - 5.04 M/cmm [facility] Hemoglobin 12.4 11.6 - 15.2 gm/dl [facility] HCT 34.7(L) 34.9 - 44.4 % [facility] MCV 88 81 - 98 fl [facility] MCH 31.4 26.7 - 33.3 pg [facility] MCHC 35.6 32.1 - 35.9 gm/dl [facility] PLT 195 141 - 320 K/cmm [facility] RDW-CV 14.3 11.7 - 14.6 % [facility] 12/30/2013 10:3 5 EDT 12/30/2013 12:51 EDT Nesha Parada MD HEMATOLOGY & PF4 OR DERABLES Performing Organization Address City/[facility] Co de Phone Number [facility] [address] [place] [address] documented in this encounter Visit Diagnoses Not on filedocumented in this encounter Care Teams Tabber Relationship Specialty Start Date End Date Bonita Saldana PCP - General 01/31/13 01/15/14 documented as of this encounter
--- OUTSIDE RECORDS SUMMARY | 2024-01-26 12:54 | XMS_ITS | Encounter Summary ---
Author Organization [facility] Address [address] [place] [address] Care Team Providers Care It Security Manager Name Role Phone RicardoKristinaAngelicrashaad Gutierrez APRN Primary Care Provider [phone] [phone] Reason for Visit * Reason Onset Date Comments Results 05/16/2016 Encounter Details Date Type Department Care Team (Late st Contact Info) Description 05/16/2016 Telephone [facility] Neuro [facility] [place], [place] - [address] [phone] Louisa Reyna RN Results Social History Tobacco Use Types Packs/Day Years [...] Telephone Encounter - Louisa Reyna RN - 06/07/2016 1132 EST TC to Pt LM relaying DR. Ledezma's Message:Regarding: MRI Please let her know MRI head was normal. No central nervous system disease. * Telephone Encounter - Louisa Reyna RN - 06/07/2016 113 EST ----- Message from Elliott Ledezma MD sent at 06/06/2016 11:45 EST ----- Regarding: MRI Please let her know MRI head was normal. No central nervous system disease. ----- Message ----- From: Jasvir, Rad Results In Sent: 06/04/2016 13:04 To: Elliott Ledezma MD * Telephone Encounter - Louisa Reyna RN - 05/16/2016 173 EST TC to MARY relaying Dr. Ledezma's message: Regarding: Labs Please let patient know labs sent at visit were normal. * Telephone Encounter - Louisa Reyna RN - 05/16/2016 173 EST ----- Message from Elliott Ledezma MD sent at 05/11/2016 15:59 EDT ----- Regarding: Labs Please let patient know labs sent at visit were normal. ----- Message ----- From: Jasvir, Lab Results In One Sent: 05/09/2016 12:50 To: Elliott Ledezma MD documented in this encounter Plan of Treatment Upcoming Encounters Date Type Department Care Team (Late st Contact Info) Description 01/31/2024 10:15 EDT Telemedicine [facility] Neurology - [place] [address] [place] [phone] Med Maldonado MD [address] [place] [address], [address] [place] [address] 08/31/2024 9:40 EST Appointment Naz Perez [address] [phone] documented as of this encounter Visit Diagnoses Not on filedocumented in this encounter Care Teams It Security Manager Relationship Specialty Start Date End Date Angelic Silva APRN [address] [place] [address] PCP - General 05/05/16 03/26/20 documented as of this encounter
--- OUTSIDE RECORDS SUMMARY | 2024-01-26 12:54 | XMS_ITS | Encounter Summary ---
Author Organization [facility] Address [address] [place] [address] Care Team Providers Care Education Administrator Name Role Phone None, Provider Primary Care Provider Unavailabl e Encounter Details Date Type Department Care Team (Latest Contact Info) Description 05/21/2015 9:01 EST - 05/21/2015 23:59 EST Hospital Encounter [facility] Neurophysiology - Main [place] [address] [place], [place] [id number] Elliott Ledezma MD [address] [place] [address] [address] [place] [address] Carpal tunnel syndrome, left (Primary Dx); Numbness and tingling of both legs below knees; Small fiber neuropathy Discharge Disposition: Home or Self Care Social [...] as of this encounter Discharge Diagnoses Diagnosis G56.02 Carpal tunnel syndrome, left upper limb-G56.02[ICD-10-CM] R20.0 Anesthesia of skin-R20.0[ICD-10-CM] G62.9 Polyneuropathy, unspecified-G62.9[ICD-10-CM] documented in this encounter Medications at Time of Discharge Medication Sig Dispensed Refills Start Date End Date ibuprofen (MOTRIN) 400 mg tablet Take 1 Tab by mouth every 4 hours as needed for Pain. 01/09/2014 acetaminophen (TYLENOL) 325 mg tablet Take 2 Tabs by mouth as needed for Pain (). 01/02/2014 10/18/2021 amitriptyline (ELAVIL) 10 mg tabletIndications:Small fiber neuropathy Take 1 pill bedtime for 1 week, then increase 2 pills bedtime. 60 Tab 11 04/13/2015 09/07/2015 docusate sodium (COLACE) 100 mg capsule [...] 01/09/2014 09/07/2015 documented as of this encounter Discharge Disposition Disposition Code Departure Means Destination Home or Self Longterm documented in this encounter Procedure Notes * Elliott Ledezma MD - 05/21/2015 1230 ESTProcedure(s): EMG/NERVE CONDUCTION STUDY; NERVE CONDUCTION STUDIES (NCT) History: This is a 34 year old woman seen in electrodiagnostic consultation and neuromuscular follow-up to evaluate ongoing numbness/neuropathic pain in bilateral lower extremities and intermittent numbness of the left greater than right hand. Yolette first presented with symptoms of bilateral foot numbness about 3 years ago. Described as pins/needles with associated intermittent neuropathic pain. Work-up included two normal EMG's, normal MRI brain and C-spine, and negative skin biopsy. She's also had extensive lab work-up for sources of small fiber sensory neuropathy. She notes that foot pain has been more intense over the last 6 months and is aware of numbness up to mid-george. She is without autonomic dysfunction, imbalance, and tripping. She had fall about a week ago while putting things into a closet. She is unsure this was related to unsteadiness. Has history of chronic low back pain. 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 She also experiences intermittent numbness of the left greater than right hand. Symptoms are worst with repetitive activity and occasionally wake from sleep. Not dropping things with hands. Clinical Exam: This is an average weight woman in no acute distress. Negative straight leg raise bilaterally. Positive Tinel sign at left wrist, negative at right wrist. Motor: Normal tone/bulk of bilateral upper/lower extremities. Full power of upper/lower extremities including shoulder abduction, shoulder fwd flex, elbow flex/ext, wrist flex/ext, finger spread, thumb abduction, hip flexion, hip abduction, knee flex/ext, ankledorsiflex, great toe ext. Able to rise on toes of either foot independently Able to rise on heels. Sensory: Preserved sharp dull discrimination at distal toes. Gradient to pin to mid-george. Normal pin in upper extremities. 15 seconds vibration at both great toes. Negative Romberg. Reflexes: 2+ bilateral biceps, brachioradialis, knee jerks. Trace bilateral ankle jerks. Gait: Normal casual gait. For waveforms/values of EMG/nerve conduction study please see accompanying scanned document in the scans/media tab in [facility]. 15 additional minutes of face to face time after the test spent with the patient to discuss resultsand coordinate plan of care. Electrodiagnostic Impression: This is an essentially normal study. There was no electrodiagnostic evidence of a large fiber sensorimotor polyneuropathy, left median neuropathy, or lumbosacral radiculopathy. Isolated mild increased spontaneous activity in the medial gastrocnemius sparing other S1 innervated muscles in non-diagnostic. Normal Nerves: 1. Left median, peroneal, and tibial motor nerves 2. Left median, sural, and superficial peroneal sensory nerves. Normal Muscles on Needle EMG: Left vastus medialis, tensor fascia latae, semitendinosus, tibialis anterior, L5 paraspinal muscles. Mild increased spontaneous activity left medial gastrocnemius with otherwise normal motor unit morphology and recruitment. This finding is non-diagnostic. Clinical Impression: Small Fiber Predominant Sensory Polyneuropathy: Patient shows primarily length dependent small fiber sensory loss on exam with some more mild dysfunction of larger sensory fibers. EMG is normal today. We could consider additional skin biopsy in the future but delayed for now as wouldn't spinning frame changer. Patient already with imaging of central nervous system with this degree of symptoms. Patient without signs of central nervous system dysfunction. We can follow patient clinically for now. Supportive care with amitriptyline for neuropathic pain as previously prescribed. Mild Carpal Tunnel Syndrome: Patient has symptoms and signs of carpal tunnel on the left. Likely below level of detection on this test. Recommended she use a carpal tunnel brace on wrist for sleep daily to see if alleviates her symptoms. Thank you for allowing me to participate in the care of your patient. I'll plan to see her back in the neuromuscular clinic in 6 months. Please don't hesitate to call with any questions. Elliott Ledezma MD Race Starter of Neurology Neurology Attending Physician ABPN Board Certified, Neurology and Neuromuscular Medicine ABEM Board Certified, EMG documented in this encounter Plan of Treatment Upcoming Encounters Date Type Department Care Team (Late st Contact Info) Description 01/31/2024 10:15 EDT Telemedicine [facility] Neurology - S [address] [phone] Med Maldonado MD [address] [place] [address], [address] [place] [phone] 08/31/2024 9:40 EST Appointment Naz Perez [address] [place] [address] [place], [place] [address] documented as of this encounter Procedures Procedure Name Priority Date/Time Associated Diagnosis Comments ELECTROMYOGRAM - SCANNED 05/25/2015 8:30 EST documented in this encounter Results * ELECTROMYOGRAM - SCANNED (05/25/2015 8:30 EST) 05/25/2015 8:30 EST Scan 2 Interpreter PROCEDURE/MINOR ESVIN GICAL ORDERABLES documented in this encounter Visit Diagnoses Diagnosis Carpal tunnel syndrome, left- Primary Carpal tunnel syndrome Numbness and tingling of both legs below knees Disturbance of skin sensation Small fiber neuropathy Unspecified hereditary and idiopathic peripheral neuropathy documented in this encounter Care Teams Education Administrator Relationship Specialty Start Date End Date None, Provider PCP - General 01/16/14 09/01/15 documented as of this encounter
--- OUTSIDE RECORDS SUMMARY | 2024-01-26 12:54 | XMS_ITS | Encounter Summary ---
Author Organization [facility] Address [address] [place] [address] Care Team Providers Care Electronic Components Assembler Name Role Phone Angelic Silva APRN Primary Care Provider [phone] Reason for Visit * Reason Onset Date Comments New/Evolving Symptoms 05/05/2016 Encounter Details Date Type Department Care Team (Late st Contact Info) Description 05/05/2016 Telephone [facility] Neurology - S [address] [phone] Elliott Ledezma MD [address] [place] [address] [address] [place] [phone] New/Evolving Symptoms Social History Tobacco Use Types Packs/Day Years [...] encounter Miscellaneous Notes * Telephone Encounter - Dejah Moffett RN - 05/19/2016 1001 EST Pt seen in office 05/09. * Telephone Encounter - Elliott Ledezma MD - 05/05/2016 1539 EDT Dizziness unlikely related to peripheral nerve issues. Don't recommend additional treatments. Will examine her on Monday. * Telephone Encounter - Dejah Moffett RN - 05/05/2016 1445 EDT Spoke with Yolette, she has been having vertigo for the last 2 weeks. She saw a PT this AM, and they tested to see if the Eply maneuver would be effective for treating her symptoms. She states that it was found to not be an inner ear issue, so the eply maneuver would not be effective. She states thatthe PT told her this seems like another peice to the puzzle that Dr. Ledezma is trying to figure out.She has been taking Meclizine 25 mg at 0800, and then sleeping for 2- 3 hours due to the side effects. By about 1 PM she feels as though the room is spinning or she is swaying again. She has only beenable to tolerate taking the Meclizine twice a day, but wonders if there is something else that may help her be able to function between now and her appointment on Monday? * Telephone Encounter - Jessie Contreras - 05/05/2016 1359 EDT Yolette calling- stating she has had dizziness starting two weeks ago. Claims she was seen by her PCPand Physical Therapist, and they both directed her to see her Neurologist. PT completed an 'inner ear test' which was normal. Pt scheduled 05/09 @10:30am, requesting a call back from a nurse to discuss symptoms/concerns further. documented in this encounter Plan of Treatment Upcoming Encounters Date Type Department Care Team (Late st Contact Info) Description 01/31/2024 10:15 EDT Telemedicine [facility] Neurology - S [address] [address] Med Maldonado MD [address] [facility], [address] [place] [phone] 08/31/2024 9:40 EST Appointment Naz Perez [address] [phone] documented as of this encounter Visit Diagnoses Not on filedocumented in this encounter Care Teams Electronic Components Assembler Relationship Specialty Start Date End Date Angelic Silva APRN [address] [place], [place] [address] PCP - General 05/05/16 03/26/20 documented as of this encounter
--- OUTSIDE RECORDS SUMMARY | 2024-01-26 12:54 | XMS_ITS | Encounter Summary ---
Author Organization [facility] Address [address] [place] [address] Care Team Providers Care Counting Machine Operator Name Role Phone Angelic Silva APRN Primary Care Provider [phone] Encounter Details Date Type Department Care Team (Latest Contact Info) Description 07/19/2019 Travel Social History Tobacco Use Types Packs/Day [...] Description 01/31/2024 10:15 EDT Telemedicine [facility] Neurology - [address] [place] [address] [place], [place] [phone] Med Maldonado MD [address] [facility], [address] [place] [address] 08/31/2024 9:40 EST Appointment Naz Perez [address] [phone] documented as of this encounter Visit Diagnoses Not on filedocumented in this encounter Care Teams Counting Machine Operator Relationship Specialty Start Date End Date Angelic Silva APRN [address] [place] [address] PCP - General 05/05/16 03/26/20 documented as of this encounter
--- OUTSIDE RECORDS SUMMARY | 2024-01-26 12:54 | XMS_ITS | Encounter Summary ---
Author Organization [facility] Address [address] [place] [address] Care Team Providers Care Machine Tracer Name Role Phone RicardoKristinaAngelicrashaad Gutierrez APRN Primary Care Provider [phone] Reason for Visit * Reason Comments Follow-up Encounter Details Date Type Department Care Team (Late st Contact Info) Description 08/18/2016 16:30 EST Office Visit [facility] Neurology - S [address] [phone] Elliott Ledezma MD [address] [place] [address], [address] 2 [place] [phone] Small fiber neuropathy (Primary Dx) Social History [...] Sign Reading Time Taken Comments Blood Pressure 128/70 08/18/2016 1642 EST Pulse 75 08/18/2016 1642 EST Temperature - - Respiratory Rate 16 08/18/2016 1642 EST Oxygen Saturation - - Inhaled Oxygen Concentration - - Weight 77.6 kg (171 lb) 08/18/2016 1642 EST Height 172.7 cm (5' 8) 08/18/2016 1642 EST Body Mass Index 26 08/18/2016 1642 EST documented in this encounter Progress Notes * Elliott Ledezma MD - 08/18/2016 1630 EST This office note has been dictated. * Elliott Ledezma MD - 08/18/2016 0000 EST [facility] NEUROLOGY NEUROMUSCULAR PROGRESS / FOLLOWUP NOTE - 08/18/2016 Angelic Silva [address] [address] Dear Ms Silva: I had the pleasure of seeing your patient Yolette Tellez in followup at the neuromuscular clinic today. Diagnoses: 1. Viral vestibulitis. 2. Small fiber sensory neuropathy. Ms Tellez is a 35-year-old woman who was last seen in the clinic in April 2016. At that time, she was suffering with acute vertigo. This has resolved completely. She had an MRI of the brain whichwas normal. This has been deemed a viral vestibulitis and no additional treatment has been pursued.She did see an forestry and wildlife manager in the interim who agreed with this diagnosis. She also feels that neuropathy has been stable. She does have mild tingling in feet, but this has not spread over time. She was having symptoms of numbness in both hands. She has been wearing carpal tunnel wrist splints to bed, which has resolved the hand symptoms completely. She persists with mildnumbness in feet which has not spread over time. Past medical, social, and family histories are otherwise as previously dictated. Physical Exam: Blood pressure 128/70, heart rate 75, respiratory rate 16. Weight 77 kg. This is an average weight woman who is in no acute distress. Neurological Exam: She is alert and oriented x3, is of normal cognition, normal fund of knowledge, memory, and attention. Language: No aphasia or dysarthria. Cranial nerves: Pupils are equal and reactive to light. Facial strength and sensation are normal and symmetric, palate raised evenly, tongue protruded midline. Motor: Negative pronator drift, normal tone and bulk, full power of her upper and lower extremities. Sensory: Gradient to pin to the ankle bilaterally. Normal pin sensation in the upper extremities. Well preserved vibration at the toes, 20 seconds bilaterally. Negative Romberg. Reflexes: 2+ bilateral biceps, brachioradialis, knee jerks, and ankle jerks. Gait: Normal casual gait. Ten minutes spent with the patient today, of which 8 were spent in counseling and coordination of plan of care. Impression: 1. Small fiber sensory neuropathy: There has been no progression to the patient's neurological exam over years. I do not recommend additional workup at this time as she is quite stable. I will plan to see her back on an as-needed basis. 2. Vertigo: She did have an episode of acute vestibulitis. I do not recommend additional workup of this at thistime. Thank you for allowing me to participate in the care of your patient. Please do not hesitate to call with any questions or concerns. Sincerely, Elliott Ledezma MD City Editor of Neurology Neurology Attending Physician ABPN Board Certified, Neurology and Neuromuscular Medicine ABEM Board Certified, EMG - Elliott Ledezma MD cn Dictation ID: [id number] cc: Angelic Silva APRN documented in this encounter Plan of Treatment Upcoming Encounters Date Type Department Care Team (Late st Contact Info) Description 01/31/2024 10:15 EDT Telemedicine [facility] Neurology - [address] [phone] Med Maldonado MD [address] [place] [address], Level [address] [place] [phone] 08/31/2024 9:40 EST Appointment Naz Perez [address] [address] documented as of this encounter Visit Diagnoses Diagnosis Small fiber neuropathy- Primary Unspecified hereditary and idiopathic peripheral neuropathy documented in this encounter Care Teams Machine Tracer Relationship Specialty Start Date End Date Angelic Silva APRN [address] [place] [address] PCP - General 05/05/16 03/26/20 documented as of this encounter
--- OUTSIDE RECORDS SUMMARY | 2024-01-26 12:54 | XMS_ITS | Encounter Summary ---
Author Organization [facility] Address [address] [place] [address] Care Team Providers Care Field Pipelines Supervisor Name Role Phone RicardoAngelic buckley LORE Primary Care Provider [phone] Encounter Details Date Type Department Care Team (Late st Contact Info) Description 07/19/2018 Results Only [facility]- [facility] [phone] Carson Tan, [address] [phone] Social History Tobacco Use Types Packs/Day Years [...] Contact Info) Description 01/31/2024 10:15 EDT Telemedicine [facility] Neurology - S [address] [address]24[address] Med Maldonado MD [address] [place] [address], [address] [place] [phone] 08/31/2024 9:40 EST Appointment Naz Perez Mammography [address] [place] [address] documented as of this encounter Procedures Procedure Name Priority Date/Time Associated Diagnosis Comments PAP TEST- RESULT ONLY Routine 07/19/2018 0:00 EST documented in this encounter Results * PAP TEST- RESULT ONLY (07/19/2018 0:00 EST) Pathology Report: CYTOPATHOLOGY REPORT Reports generated via electronic interface contain original data; however they are lacking the format of the original report. Caution should be taken when reading/interpreti ng unformatted reports. Name: ? YOLETTE GONZALEZ ? Accession #: ? [id number] ? : ? 1980 (Age: 37) ??F ?Collect Date: ? 07/19/2018 ? Location: ? [facility] ? Receive Date: ? 07/23/2018 ? Provider: CARSON DE LA CRUZ HR SPECIALIST-BC Copy to: ? Final Report SPECIMEN ADEQUACY ? Satisfactory for Evaluation - transformation zone component present GENERAL CATEGORIZATION ? Negative for Intraepithelial Lesion or Malignancy INTERPRETATION ? Shift in mitch present suggestive of bacterial vaginosis. Last Menstrual Period: 06/20/2018 Specimen/Source: ??Pap Test, Cervix, ThinPrep Imaging System with manual evaluation Document reviewed and electronically signed by: ? GENESIS Vazquez(ASCP) ? Report ??Date: 07/26/2018 10:47 HPV with Pap Test ? Date Ordered: ? 07/26/2018 ? Status: ?? Signed Out ?Date Complete: ? 07/27/2018 ? By: ??System Interface ? Date Reported: ? 07/27/2018 ? Interpretation RESULT: Negative for HPV. No E6 or E7 mRNA is detected from HPV types 16,18,31,33,35, 39,45,51,52,56,58, 59,66, and 68 by ethnoarchaeology professor mediated amplification. Comments Document reviewed and electronically signed by: ? System Interface ? Report date: 07/27/2018 By the signature above, the attending physician certifies that he/she has personally conducted a gross and/or microscopic examination of the described specimens and rendered or confirmed the above diagnosis. End of Report [facility] 07/19/2018 07/23/2018 Carson Tan [facility] ORDERA MARKUS [facility] [address] [place] [address] documented in this encounter Visit Diagnoses Not on filedocumented in this encounter Care Teams Field Pipelines Supervisor Relationship Specialty Start Date End Date Angelic Silva APRN [address] [place] [address] PCP - General 05/05/16 03/26/20 documented as of this encounter
--- OUTSIDE RECORDS SUMMARY | 2024-01-26 12:55 | XMS_ITS | Encounter Summary ---
Author Organization [facility] Address [address] [place] [address] Care Team Providers Care Net Developer Programmer Name Role Phone Unknown, Provider Primary Care Provider [phone] Encounter Details Date Type Department Care Team (Late st Contact Info) Description 12/24/2012 Results Only Imaging [place] [facility] [address] [place], [place] [address] Elliott Ledezma MD [address] [place] [address] [address] [place] [phone] Social History Tobacco Use Types Packs/Day Years [...] Telemedicine [facility] Neurology - [address] [phone] Med Maldonado MD [address] [place] [phone] 08/31/2024 9:40 EST Appointment Naz Perez [facility] [address] [place] [address] documented as of this encounter Procedures Procedure Name Priority Date/Time Associated Diagnosis Comments MR HEAD W/WO CONTRAST 01/03/2013 8:00 EDT documented in this encounter Results * MR HEAD W/WO CONTRAST (01/03/2013 8:00 EDT) Anatomical Region Laterality Modality Other 01/03/2013 8:00 EDT 01/03/2013 11:28 EDT Narrative 01/03/2013 11:28 EDT MRI HEAD WITH AND WITHOUT CONTRAST January 03, 2013 Indication: Vertigo. Unexplained sensory loss. Comparison: August 07, 2011 Technique: Sagittal T2 FLAIR, coronal inversion recovery, axial T2, T2 FLAIR, SWI, DWI and triplanar T1 pre- and postcontrast MR images of the brain were obtained. Findings: The ventricles and sulci are age-appropriate. There is no midline shift. The basilar cisterns are patent. Signal intensity throughout the brain and brainstem is normal. No enhancing lesions are seen following contrast administration. Flow voids are present in the major intracranial arteries and dural venous sinuses. There is minor paranasal sinus mucosal thickening present without air-fluid levels demonstrated. The mastoid air cells are clear. No gross orbital abnormality is demonstrated. Impression: No intracranial abnormality identified. Procedure Note 01/03/2013 MRI HEAD WITH AND WITHOUT CONTRAST January 03, 2013 Indication: Vertigo. Unexplained sensory loss. Comparison: August 07, 2011 Technique: Sagittal T2 FLAIR, coronal inversion recovery, axial T2, T2 FLAIR, SWI, DWI and triplanar T1 pre- and postcontrast MR images of the brain were obtained. Findings: The ventricles and sulci are age-appropriate. There is no midline shift. The basilar cisterns are patent. Signal intensity throughout the brain and brainstem is normal. No enhancing lesions are seen following contrast administration. Flow voids are present in the major intracranial arteries and dural venous sinuses. There is minor paranasal sinus mucosal thickening present without air-fluid levels demonstrated. The mastoid air cells are clear. No gross orbital abnormality is demonstrated. Impression: No intracranial abnormality identified. Elliott Ledezma MD IMG MRI ORDERABLE S documented in this encounter Visit Diagnoses Not on filedocumented in this encounter Care Teams Net Developer Programmer Relationship Specialty Start Date End Date Unknown, Provider, PCP - General 07/19/11 01/30/13 documented as of this encounter
--- OUTSIDE RECORDS SUMMARY | 2024-01-26 12:55 | XMS_ITS | Encounter Summary ---
Author Organization [facility] Address [address] [place] [address] Care Team Providers Care Ordinary Seaman Name Role Phone None, Provider Primary Care Provider Unavailabl e Encounter Details Date Type Department Care Team (Late Contact Info) Description 05/08/2009 Abstract [facility] Primary Care - [address] [address] None, Provider Social History Tobacco Use Types Packs/Day Years Used Date Smoking Tobacco: Never Assessed Sex and Gender Information Value Date Recorded Sex Assigned at Not on file Gender Identity Female 02/24/2020 22:01 EDT Sexual Orientation Not on file documented as of this encounter Plan of Treatment Upcoming Encounters Date Type Department Care Team (Late st Contact Info) Description 01/31/2024 10:15 EDT Telemedicine [facility] Neurology - S [address] [phone] Med Maldonado MD [address] [place] [address], [address] [place] [phone] 08/31/2024 9:40 EST Appointment Naz Perez [address] [phone] documented as of this encounter Visit Diagnoses Not on filedocumented in this encounter Historical Medications * This list may reflect changes made after this encounter. Medication Sig Dispensed Refills Start Date End Date NONFORMULARY OCP 02/09/2010 added in this encounter Care Teams Ordinary Seaman Relationship Specialty Start Date End Date None, Provider PCP - General 03/03/09 07/18/11 documented as of this encounter
--- OUTSIDE RECORDS SUMMARY | 2024-01-26 12:55 | XMS_ITS | Encounter Summary ---
Author Organization [facility] Address [address] [place] [address] Care Team Providers Care Aircraft Skin Burnisher Name Role Phone Unknown, Provider Primary Care Provider Encounter Details Date Type Department Care Team (Latest Contact Info) Description 08/19/2011 8:05 EST - 08/19/2011 23:59 [facility] Encounter [facility] - Main [place] [address] [place], [place] [address] Unknown, ProviderMD MD Brock Discharge Disposition: Home or Self Care Social History Tobacco Use Types Packs/Day Years Used Date Smoking Tobacco: Never Alcohol Use Standard Drinks/Week Comments [...] hours as needed for Pain. 03/05/2010 01/02/2014 docusate sodium (COLACE) 100 mg capsule Take 1 Cap by mouth 2 times daily as needed for Constipation. 03/05/2010 09/27/2012 ibuprofen (ADVIL;MOTRIN) 100 mg/5 mL suspension Take 20 mL by mouth every 6 hours as needed for Pain. 03/05/2010 01/09/2014 Lansinoh HPA Lanolin Apply topically as needed for Other. 03/05/2010 09/27/2012 multivitamin (FLINTSTONES COMPLETE) chewable tablet Take 1 Tab by mouth daily. 01/09/2014 documented as of this encounter Discharge Disposition Disposition Code Departure Means Destination Home or Self [facility] documented in this encounter Procedure Notes * Straightening Press Operator Helper, Scan - 08/22/2011 1521 ESTAssociated Order(s): PATHOLOGY - SCANNED * Straightening Press Operator Helper, Scan - 08/19/2011 1416 ESTAssociated Order(s): ORDERS - SCANNED * Straightening Press Operator Helper, Scan - 08/19/2011 1415 ESTAssociated Order(s): ELECTROMYOGRAM - SCANNED * Elliott Ledezma MD - 08/19/2011 1121 EST [facility] ELECTRODIAGNOSTIC MEDICINE CONSULTATION SERVICE DATE: 08/19/2011 HISTORY: Ms House is a pleasant 30-year-old woman seen in electrodiagnostic consultation today to evaluate symptoms of numbness and tingling of arms and legs. Her symptoms began in June 2011, and she has been seen twice in my neuromuscular clinic, last on 08/15/2011. She has intermittent tingling of hands with activity and has tingling in feet and legs up to the knees bilaterally. She does not have imbalance or tripping and has no bowel or bladder dysfunction. She does have some component of worsening after a hot shower and has some component of a Lhermitte's phenomenon. As my initial workup, I ordered an MRI of the brain and cervical spine, which were normal and did not show central nervous system cause of this problem. On her last visit to clinic, I appreciated patchy sensory loss in the upper extremities and a gradient to below the knee, primarily on the left to pin sensation. She had well preserved vibration at the toes 18 seconds bilaterally. Normal reflexes and had possiblysome distal lower extremity weakness. Clinical exam is as documented in my note from 08/15/11. For wave forms and values of the nerve conduction study, please refer to the accompanying scanned document in PRISM. ELECTRODIAGNOSTIC IMPRESSION: This is a normal study. There is no electrodiagnostic evidence of a large fiber sensorimotor polyneuropathy. A normal nerve conduction study of the upper and lower extremities does not exclude a small fiber sensory neuropathy. Normal nerves tested include left and right peroneal motor, left and right tibial motor, left median motor and ulnar motor nerves. All nerves had normal late wave F-wave responses. There is also a normal nerve conduction study of the right superficial peroneal, sural and medial plantar responses and the left median, ulnar and sural sensory responses. 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 The patient does have some loss of pin sensation on examination again today primarily in the left foot. At this point, we do not have a cause of the patient's numbness and tingling and have not determined a central or peripheral nervous system cause. I would like to pursue additional evaluation given the sudden onset of the patient's symptoms and progression over time. We will pursue a skin biopsy to look at epidermal nerve fiber density from the left leg. I will also consider the utility of pursuing a lumbar puncture to look for evidence of elevated protein, which might lead to a diagnosis of an inflammatory neuropathy. I will defer that decision for now. If neuropathic pain continues to be an issue and the patient desires treatment, it would be reasonable to consider a trial of gabapentin or tricyclic antidepressants such as amitriptyline. She will let me know if we need to pursue this. Thank you for allowing me to participate in the care of your patient. Please do not hesitate to call me with any questions or concerns. Electronically Signed by Elliott Ledezma MD 08/19/2011 16:42 Elliott Ledezma MD - Elliott Ledezma MD A - HB Job ID: Doc ID: [id number] Ext Doc ID: [id number] cc: MD Elliott Murphy MD documented in this encounter Plan of Treatment Upcoming Encounters Date Type Department Care Team (Late st Contact Info) Description 01/31/2024 10:15 EDT Telemedicine [facility] Neurology - [address] [place] [address] [place] [address] Med Maldonado MD [address] [place] [address], [address] [place] [phone] 08/31/2024 9:40 EST Appointment Naz Perez [address] [phone] documented as of this encounter Procedures Procedure Name Priority Date/Time Associated Diagnosis Comments PATHOLOGY - SCANNED 08/22/2011 1 5:21 EST ORDERS - SCANNED 08/19/2011 14:1 6 EST ELECTROMYOGRAM - SCANNED 08/19/2011 14:15 EST documented in this encounter Results * PATHOLOGY - SCANNED (08/22/2011 15:21 EST) 08/22/2011 15:2 1 EST Narrative Transcriptions Straightening Press Operator Helper, Scan - 08/22/2011 15:21 EST Scan Straightening Press Operator Helper LAB INFO SERVICE AND SUPPORT & PHONE RESULT * ORDERS - SCANNED (08/19/2011 14:16 EST) 08/19/2011 14:1 6 EST Narrative Transcriptions Straightening Press Operator Helper, Scan - 08/19/2011 14:16 EST Scan Straightening Press Operator Helper ADMISSION ORDERABLES * ELECTROMYOGRAM - SCANNED (08/19/2011 14:15 EST) 08/19/2011 14:1 5 EST Narrative Transcriptions Straightening Press Operator Helper, Jamar - 08/19/2011 14:15 EST Scan Straightening Press Operator Helper PROCEDURE/MINOR SURG ICAL ORDERABLES documented in this encounter Visit Diagnoses Not on filedocumented in this encounter Care Teams Aircraft Skin Burnisher Relationship Specialty Start Date End Date Unknown, Provider, PCP - General 07/19/11 01/30/13 documented as of this encounter
--- OUTSIDE RECORDS SUMMARY | 2024-01-26 12:55 | XMS_ITS | Encounter Summary ---
Author Organization [facility] Address [address] [place] [address] Care Team Providers Care Resident Care Manager Name Role Phone Unknown, Provider Primary Care Provider [phone] Reason for Referral * Radiology Services (Routine/Next Available) - Closed Specialty Diagnoses / Procedures Referred By Contzen t Referred To Contact Diagnoses Bilateral foot pain Procedures FOOT 3 OR MORE VIEWS Kendra Bradford NP [address] [place] [phone] Referral ID Status Reason Start Date Expiration Date Visits Re quested Visits Authorized [id number] Closed 09/27/2012 1 1 Reason for Visit * Reason Comments Foot Problem Bilateral Foot Numbn ess Encounter Details Date Type Department Care Team (Late st Contact Info) Description 09/27/2012 10:00 EDT Office Visit [facility] - [place] [facility] [place] [address] Kendra Bradford NP [address] [place] [phone] Numbness and tingling of both legs below knees (Primary Dx); Bilateral foot pain Social History Tobacco Use Types Packs/Day [...] - Inhaled Oxygen Concentration - - Weight 69.9 kg (154 lb) 09/27/2012 1011 EDT Height 172.7 cm (5' 8) 09/27/2012 1011 EDT Body Mass Index 23.42 09/27/2012 1011 EDT documented in this encounter Progress Notes * Mónica Bradford, YOVANY - 09/27/2012 1244 EDT Diagnosis: 1. Numbness and tingling of both legs below knees (782.0) 2. Bilateral foot pain (729.5) FOOT 3 OR MORE VIEWS Yolette Tellez is being seen today for Foot Problem We have been asked to see her in consultation by Dr. Ledezma HPI: Yolette Tellez is a 31 y.o. female patient who presents with complaint of numbness and tingling in the top of her feet, going up to her knees. This started in 2011 and was accompanied by similar symptoms, plus loss of function in her left arm and hand. She was referred to Neurology by her PCP. She saw Dr. Elliott Ledezma MD who performed several tests over a period of 4 to 6 months. All the tests were normal and she was referred to this clinic because she has bumps on her feet, present since childhood, and there is a question of whether or not those are the cause of her lower extremities symptoms. She has noticed that enclosed shoes set off the symptoms and they do not stop even after she t akes off her shoes, therefore she walks barefoot as much as she can. 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 : No Pain Quality: Numbness;Pins and needles Pain Duration: Intermittent Pain Aggravating Factors: Activity;Movement (Shoes) Pain Relieving Factors: unknown Past medical history, medications, allergies, past surgical, social and family history were reviewed and noted in PRISM. The intake form was reviewed with patient and signed. Functional Evaluation: Functionally, She reports: Limping: none; Limitation of walking distance: Yes; 4-6 blocks only Use of walking aids: No; Using a bannister to climb steps: No; Difficulty walking on uneven surfaces or hills: No; Limitations to shoe wear: No; Limitations to running: none Limitations to usual athletic activity: Activities - none; Limitations - n/a Patient Active Problem List Diagnoses Date Noted ??? Numbness and tingling of both legs below knees 09/27/2012 Past Medical History Diagnosis Date ??? Pap smear, abnormal ASCUS and HPV ??? Patellar instability Bilateral ??? School problem ??? Chickenpox Past Surgical History Procedure Date ??? Dunlo tooth extraction 1997 ??? Colposcopy History Substance Use Topics ??? Smoking status: Never Smoker ??? Smokeless tobacco: Never Used ??? Alcohol Use: No Family History Problem Relation Age of Onset ??? High Blood Pressure Mother ??? High Cholesterol Mother ??? High Cholesterol Father ??? High Blood Pressure Maternal Grandfather ??? Diabetes Maternal Grandfather ??? High Cholesterol Maternal Grandfather ??? Cancer Maternal Grandfather prostate Current Outpatient Prescriptions Medication Sig Dispense Refill ??? acetaminophen (TYLENOL) 650 mg/20.3 mL solution Take 20.3 mL by mouth every 6 hours as needed for Pain. ??? ibuprofen (ADVIL;MOTRIN) 100 mg/5 mL suspension Take 20 mL by mouth every 6 hours as needed forPain. ??? multivitamin (FLINTSTONES COMPLETE) chewable tablet Take 1 Tab by mouth daily. Allergies Allergen Reactions ??? Other - See Comments Environmental Allergies Review of Systems A ten point review of systems was performed. Pertinent positives are listed below, all others are negative: Musculoskeletal: positive for as per HPI Vital signs: height is 172.7 cm (68) and weight is 69.854 kg (154 lb). PHYSICAL EXAM: Constitutional: NAD, Body mass index is 23.42 kg/(m^2). based on self-reported height/weight. Psychiatric: alert and oriented x3. Mood and affect appropriate. Good historian. Anxiety index is 5/10 Eyes: EOM are normal ENT: lips are soft and moist Cardiovascular: Capillary refill is normal and pulses are palpable Pulmonary: respiratory effort is normal Neurological: epicritic sensations are intact. Edison-Kitty monofilament test shows intact sensations distally Musculoskeletal: Gait: Normal Foot alignment: arches are normal, with neutral alignment of the heels, neutral alignment of the ankle/hindfoot , and neutral alignment of the midfoot/forefoot. Hallux exam: no deformity with good ROM, no inflammation and no tenderness. Lesser toes: no deformities Tailors's bunions are present Hammertoes are absent. Range of Motion: ankles normal, subtalar joints normal, chopart joints normal Motor Strength: Dorsiflexion is normal - Plantar flexion is normal - Resisted inversion is normal -Resisted eversion is normal Areas of swelling: Hard prominences on bilateral dorsal midfoot Areas of tenderness: none Skin exam: Metatarsal calluses: present Skin lesions: no rashes, no scars on lower extremities Toenails: CARMITA due to nail [place]. Hematologic exam: Ecchymoses are absent. Prior workup of the patient: none Xrays obtained today: bilateral weightbearing foot. Independent review: unremarkable. ASSESSMENT: 1. Numbness and tingling of both legs below knees 2. Bilateral foot pain FOOT 3 OR MORE VIEWS Yolette Tellez symptoms might be caused by peroneal nerve impingement at the knee levels. 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 We discussed ordering an EMG to test only the peroneal nerves and she reportedthat she has a 11/26/[address] Ledezma, scheduled by ENT because she has been having dizzy spells. It makes sense, then that Dr. Ledezma conducts the EMG to save her another trip into the [facility]. She will follow up as needed after the EMG is done. Other Orders Placed This Visit Procedures ??? FOOT 3 OR MORE VIEWS PLAN: -Immobilization: none -Activity: as tolerated -Consults: Dr. Elliott Ledezma MD for EMG -X-rays for next visit:none -Follow up:Return for OPV after EMG. Patient will call for appointment. Patient voices understanding and agrees with the plan. Cc: Requesting Provider - Dr. Ledezma PCP - DOCTOR KAYLA MD documented in this encounter Miscellaneous Notes * Scanned Note-Null - CHAIR LIFT OPERATOR, SCAN 2 - 10/10/2012 0923 EDT documented in this encounter Plan of Treatment Upcoming Encounters Date Type Department Care Team (Late st Contact Info) Description 01/31/2024 10:15 EDT Telemedicine [facility] Neurology - [address] [place], [place] [address] Med Maldonado MD [address] [facility], [address] [place] [phone] 08/31/2024 9:40 EST Appointment Naz [address] [phone] documented as of this encounter Procedures Procedure Name Priority Date/Time Associated Diagnosis Comments FOOT 3 OR MORE VIEWS Routine 09/27/2012 11:03 EDT Bilateral foot pain documented in this encounter Results * FOOT 3 OR MORE VIEWS (09/27/2012 11:03 EDT) Anatomical Region Laterality Modality Other 09/27/2012 11:0 3 EDT 09/27/2012 18:49 EDT Narrative 09/27/2012 18:49 EDT Bilateral feet September 27, 2012 History: Dorsal pain, midfoot bumps Three views of each foot were obtained. Findings: There is slight irregularity involving the proximal phalanx of the left 3rd toe, perhaps related to a healed fracture. The bones and soft tissues otherwise appear normal. The joint spaces are preserved. Incidentally noted are large accessory ossicles adjacent to the medial navicular bones bilaterally. There is a bipartite medial sesamoid in the left foot. Procedure Note 09/27/2012 Bilateral feet September 27, 2012 History: Dorsal pain, midfoot bumps Three views of each foot were obtained. Findings: There is slight irregularity involving the proximal phalanx of the left 3rd toe, perhaps related to a healed fracture. The bones and soft tissues otherwise appear normal. The joint spaces are preserved. Incidentally noted are large accessory ossicles adjacent to the medial navicular bones bilaterally. There is a bipartite medial sesamoid in the left foot. Kendra Bradford NP IMG DIAGNOST IC IMAGING ORDERABLES documented in this encounter Visit Diagnoses Diagnosis Numbness and tingling of both legs below knees- Primary Disturbance of skin sensation Bilateral foot pain Pain in limb documented in this encounter Discontinued Medications Medication Sig Discontinue Reason Start Date End Da te docusate sodium (COLACE) 100 mg capsule Take 1 Cap by mouth 2 times daily as needed for Constipation. Therapy completed 03/05/2010 09/27/2012 Lansinoh HPA Lanolin Apply topically as needed for Other. Therapy completed 03/05/2010 09/27/2012 documented as of this encounter Care Teams Resident Care Manager Relationship Specialty Start Date End Date Unknown, Provider, PCP - General 07/19/11 01/30/13 documented as of this encounter
--- OUTSIDE RECORDS SUMMARY | 2024-01-26 12:55 | XMS_ITS | Encounter Summary ---
Author Organization [facility] Address [address] [place] [address] Care Team Providers Care Coder Operator Name Role Phone Unavailable Primary Care Provider Unavailabl e Encounter Details Date Type Department Care Team (Late st Contact Info) Description 01/18/2008 10:41 EDT Hospital Encounter [facility] - [place] [address] [place] [address] Valorie López NP [address] [facility] [address] [place] [phone] Social History Tobacco Use Types Packs/Day Years [...] 18:39 EDT documented as of this encounter Plan of Treatment Upcoming Encounters Date Type Department Care Team (Late st Contact Info) Description 01/31/2024 10:15 EDT Telemedicine [facility] Neurology - [address] [address] [place], [place] [phone] Med Maldonado MD [address] [place] [address] [place], [address] [place] [phone] 08/31/2024 9:40 EST Appointment Naz Perez [address] [address] documented as of this encounter Procedures Procedure Name Priority Date/Time Associated Diagnosis Comments CYTOPATHOLOGY Routine 01/18/2008 0:00 EDT documented in this encounter Results * CYTOPATHOLOGY (01/18/2008 0:00 EDT) Pathology Report: CYTOPATHOLOGY REPORT ? Reports generated via electronic interface contain original data; ? however they are lacking the format of the original report. ? Caution should be taken when reading/interpreti ng unformatted reports. ? Name: ? YOLETTE HOUSE ? Accession #: ? [id number] ? : ? 1980 (Age: 27) ??F ?Collect Date: ? 01/18/2008 ? Location: ? [facility] ? Receive Date: ? 01/21/2008 ? Provider: ?VALORIE M LÓPEZ ANP ? Copy to: ? Specimen/Source: ?ThinPrep Pap Test, Cervix/Endocervix, processed on Kodable ThinPrep Imaging System, with manual evaluation ? Last Menstrual Period: ? 7/1/08 ? Hormonal/Contracep tive Status: ? Yes: [place] ? Previous Gynecologic Pathology: ? ASC-US ? HPV: + ? Other: ? HPVA - HPV testing requested if ASC-US on the current ThinPrep Pap test. ? SPECIMEN ADEQUACY ? Satisfactory for Evaluation ? - transformation zone component present ? GENERAL CATEGORIZATION ? Negative for Intraepithelial Lesion or Malignancy ? INTERPRETATION ? Reactive cellular changes associated with inflammation present (includes ?? repair). ? Document reviewed and electronically signed by: ? Luda Chaney, MD PhD ? Report Date: ??01/29/2008 14:39 ? End of Report ? AMANUEL COVARRUBIAS 01/18/2008 01/21/2008 Valorie López CEMENT RUBBER PATHOLOGY ORDERAB LES [facility] [address] [place] [address] documented in this encounter Visit Diagnoses Not on filedocumented in this encounter Additional Health Concerns Infection Onset Date Last Indicated Resolved Time R/O COVID-19 07/15/2020 07/15/2020 07/20/2020 22:1 7 EST documented as of this encounter
--- OUTSIDE RECORDS SUMMARY | 2024-01-26 12:55 | XMS_ITS | Encounter Summary ---
Author Organization [facility] Address [address] [place] [address] Care Team Providers Care Computer Support Analyst Name Role Phone None, Provider Primary Care Provider Unavailabl e Encounter Details Date Type Department Care Team (Late st Contact Info) Description 12/13/2006 Results Only [facility] [address] [place], [place] [address] Valorie López, YOVANY 111 [facility] 4 [place] [address] Social History Tobacco Use Types [...] Description 01/31/2024 10:15 EDT Telemedicine [facility] - S [address] [id number] Med Maldonado MD [address] [place] [address] 2 [place] [phone] 08/31/2024 9:40 EST Appointment Naz Preez [address] [address] documented as of this encounter Procedures Procedure Name Priority Date/Time Associated Diagnosis Comments CYTOPATHOLOGY Routine 12/13/2006 0:00 EDT documented in this encounter Results * CYTOPATHOLOGY (12/13/2006 0:00 EDT) Pathology Report: CYTOPATHOLOGY REPORT Reports generated via electronic interface contain original data; however they are lacking the format of the original report. Caution should be taken when reading/interpreti ng unformatted reports. Name: ? YOLETTE HOUSE ? Accession #: ? [id number] : ? 1980 (Age: 26) ??F ?Collect Date: ? 12/13/2006 Location: ? [facility] ? Receive Date: ? 12/14/2006 Provider: ?VALORIE LÓPEZ ANP Copy to: ? Specimen/Source: ?ThinPrep Pap Test, Cervix/Endocervix, processed on [facility] ThinPrep Imaging System, with manual evaluation Last Menstrual Period: ? 11/29/06 Hormonal/Contracep tive Status: ? Yes: [place] Previous Gynecologic Pathology: ? Yes Other: ? HPVA - HPV testing requested if ASC-US on the current ThinPrep Pap test. ? SPECIMEN ADEQUACY ? Satisfactory for Evaluation - transformation zone component present GENERAL CATEGORIZATION ? Negative for Intraepithelial Lesion or Malignancy ? Document reviewed and electronically signed by: ? GENESIS Zarco(ASCP) ? Report Date: ??12/19/2006 15:21 End of Report [facility] 12/13/2006 12/14/2006 Valorie López DOUBLE END TRIMMER PATHOLOGY ORDERAB LES Performing Organization Address City/State/[facility] Co de Phone Number [facility] [address] [place] [address] documented in this encounter Visit Diagnoses Not on filedocumented in this encounter Care Teams Computer Support Analyst Relationship Specialty Start Date End Date None, Provider PCP - General 03/03/09 07/18/11 documented as of this encounter
--- OUTSIDE RECORDS SUMMARY | 2024-01-26 12:55 | XMS_ITS | Encounter Summary ---
Author Organization [facility] Address [address] [place] [address] Care Team Providers Care Insurance Counsel Name Role Phone Unknown, Provider Primary Care Provider Encounter Details Date Type Department Care Team (Latest Contact Info) Description 01/03/2013 9:42 EDT - 01/03/2013 23:59 EDT Hospital Encounter [facility] [address] [place] [address] Elliott Ledezma MD [address] [place] [address] [address] 2 [place] [phone] Discharge Disposition: Home or Self Care Social [...] Code Departure Means Destination Home or Self Long Term documented in this encounter Plan of Treatment Upcoming Encounters Date Type Department Care Team (Late st Contact Info) Description 01/31/2024 10:15 EDT Telemedicine [facility] Neu[facility] - S [address] [address] Med Maldonado MD [address] [place] [address] [address] 2 [place] [phone] 08/31/2024 9:40 EST Appointment Naz Perez [address] [phone] documented as of this encounter Visit Diagnoses Not on filedocumented in this encounter Care Teams Insurance Counsel Relationship Specialty Start Date End Date Unknown, Provider, PCP - General 07/19/11 01/30/13 documented as of this encounter
--- OUTSIDE RECORDS SUMMARY | 2024-01-26 12:55 | XMS_ITS | Encounter Summary ---
Author Organization [facility] Address [address] [place] [address] Care Team Providers Care Spray Painting Machine Operator Name Role Phone Unknown, Provider Primary Care Provider [phone] Encounter Details Date Type Department Care Team (Latest Contact Info) Description 08/07/2011 9:41 EST - 08/07/2011 23:59 [facility] Hospital Encounter [facility] [address] [place] [address] Elliott Ledezma MD [address] [place] [address] [address] [place] [phone] Discharge Disposition: Auto Discharge Social History Tobacco [...] Contact Info) Description 01/31/2024 10:15 EDT Telemedicine [facility] - S [address] [address] Med Maldonado MD [address] [place] [address], Level [address] [place] [phone] 08/31/2024 9:40 EST Appointment Naz Perez [address] [phone] documented as of this encounter Visit Diagnoses Not on filedocumented in this encounter Care Teams Spray Painting Machine Operator Relationship Specialty Start Date End Date Unknown, Provider, PCP - General 07/19/11 01/30/13 documented as of this encounter
--- OUTSIDE RECORDS SUMMARY | 2024-01-26 12:55 | XMS_ITS | Encounter Summary ---
Author Organization [facility] Address [address] [place] [address] Care Team Providers Care Tire Room Supervisor Name Role Phone None, Provider Primary Care Provider Unavailabl e Encounter Details Date Type Department Care Team (Latest Contact Info) Description 08/05/2009 23:01 EST - 08/05/2009 23:02 EST Hospital Encounter [facility] - Other [address] [place] [address] Rosalie Collier, [address] [phone] Discharge Disposition: Home or Self [...] Start Date End Date NONFORMULARY OCP 02/09/2010 documented as of this encounter Discharge Disposition Disposition Code Departure Means Destination Home or Self Care documented in this encounter Plan of Treatment Upcoming Encounters Date Type Department Care Team (Late st Contact Info) Description 01/31/2024 10:15 EDT Telemedicine [facility] Neurology - S [address] [address] Med Maldonado MD [address] [place] [address] 2 [place] [phone] 08/31/2024 9:40 EST Appointment Naz Perez [facility] [address] [place] [address] documented as of this encounter Visit Diagnoses Not on filedocumented in this encounter Care Teams Tire Room Supervisor Relationship Specialty Start Date End Date None, Provider PCP - General 03/03/09 07/18/11 documented as of this encounter
--- OUTSIDE RECORDS SUMMARY | 2024-01-26 12:55 | XMS_ITS | Encounter Summary ---
Author Organization [facility] Address [address] [place] [address] Care Team Providers Care Distributor Sales Consultant Name Role Phone Unknown, Provider Primary Care Provider [phone] Bonita Saldana Primary Care Provider Unavailable None, Provider Primary Care Provider Unavailabl e Unknown, Provider Primary Care Provider [phone] Angelic Silva APRN Primary Care Provider Morgan Panchal Primary Care Provider [phone] Angelic Silva APRN Primary Care Provider Encounter Details Date Type Department Care Team (Late st Contact Info) Description 03/01/2012 Documentation Visit [facility] [address] [place], [place] [phone] Elliott Ledezma MD 1 [facility], Level 2 [place] [phone] Social History Tobacco Use Types Packs/Day Years Used Date Smoking Tobacco: Never Alcohol Use Standard Drinks/Week Comments No 0 (1 standard drink = 0.6 oz pur e alcohol) Sex and Gender Information Value Date Recorded Sex Assigned at Not on file Gender Identity Female 02/24/2020 22:01 EDT Sexual Orientation Not on file documented as of this encounter Progress Notes * Elliott Ledezma MD - 03/05/2012 0828 EDT [facility] CARE SERVICE PROGRESS/FOLLOWUP NOTE - 03/01/2012 Earl Nunn MD [address] Nunn: I had the pleasure of seeing your patient, Yolette House, in neuromuscular clinic today in followup for symptoms of numbness. Ms House is a 31-year-old woman whom I met in July for the sudden onset of numbness in multiple body parts. She underwent an extensive evaluation including MRI of the central nervous system including brain and cervical spinal cord, an EMG nerve conduction study and skin biopsy for epidermal nerve fiber density. All testing came back normal without evidence of a systemic central nervous system or peripheral nervous system cause of her symptoms. Since her last visit to clinic in 10/2011, hersymptoms have essentially resolved. She presents with a new complaint today of intermittent numbness in the toes of both feet and dorsum of foot, only when wearing sneakers or shoes that press on her instep. Within minutes of putting on sneakers or Dansko clogs which seem to press on her instep, she begins to experience numbness and tingling in her bilateral feet, primarily involving the toes bilaterally. These symptoms resolve within minutes to an hour of removing her shoes, depending on the length of time she wears the foot wear. If she wears sandals she does not experience a similar problem and she never has symptoms when her feet are not enclosed in shoes when trying to sleep at night or when sitting during the day. She also does not notice similar symptoms when wearing socks. She has not appreciated any weakness of herbilateral lower extremities and continues to be without significant back pain. Past medical, social and family history as previously dictated. Medications: None. Directed clinical examination, she has a negative straight leg raise bilaterally. There is no tenderness over the low back. She continues to have a positive Tinel sign over the fibular head bilaterally. There is significant positive Tinel sign over the dorsal surface of both feet near a bony overgrowth on her instep. This causes reproduction of her symptoms to some degree. Motor exam: Full power of her bilateral upper and lower extremities involving hip flexion, hip abduction, knee flexion/extension, ankle dorsiflexion, plantarflexion, inversion and eversion, and greattoe extension. Sensory: Normal pin, temperature and vibratory sense in both feet and legs. Reflexes: 2+ bilateral knee jerks, ankle jerks. Toes downgoing. Twenty minutes were spent with the patient today, of which more than half were spent in interpretation of exam and counseling. 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 For now, I recommended that she try to find looser fitting foot wear to help relieve her symptoms. At the same time I will refer the patient to my colleagues in orthopedics who specialize in the foot to take a look at her bony overgrowth and see if there are any procedures that they might recommend to help relieve her symptoms. At this point, I do not recommend any additional neurological workup for this problem. I again recommended to the patient that she abstain from crossing her legs as she does have some soft signs of mild peroneal neuropathy at the fibular head as well. Thank you for allowing me to participate in the care of your patient. I will not schedule her for followup at this time, but would be happy to see her back should her symptoms change in the future. Please do not hesitate to call me with any questions or concerns. Sincerely, Electronically Signed by Elliott Ledezma MD 03/06/2012 15:59 Elliott Ledezma MD - Elliott Ledezma MD - [facility] Job ID: Doc ID: [id number] [facility] Doc ID: [id number] cc: MD Elliott Murphy MD documented in this encounter Plan of Treatment Upcoming Encounters Date Type Department Care Team (Late st Contact Info) Description 01/31/2024 10:15 EDT Telemedicine [facility]rology - S [place] [address] [place], [place] [address] Med Maldonado MD 1 [facility], Level [address] [place] [phone] 08/31/2024 9:40 EST Appointment Naz Perez [address] [phone] documented as of this encounter Visit Diagnoses Not on filedocumented in this encounter Additional Health Concerns Infection Onset Date Last Indicated Resolved Time R/O COVID-19 07/15/2020 07/15/2020 07/20/2020 22:1 7 EST documented as of this encounter Care Teams Distributor Sales Consultant Relationship Specialty Start Date End Date Unknown, Provider, PCP - General 07/19/11 01/30/13 Bonita Saldana PCP - General 01/31/13 01/15/14 None, Provider PCP - General 01/16/14 09/01/15 Unknown, Provider, PCP - General 09/02/15 05/04/16 Angelic Silva APRN [address] [place] [address] PCP - General 05/05/16 03/26/20 Morgan Panchal PA [address] [place] [address] PCP - General 03/27/20 03/05/23 Angelic Silva APRN [address] [place] [address] PCP - General 03/06/23 documented as of this encounter
--- OUTSIDE RECORDS SUMMARY | 2024-01-26 12:55 | XMS_ITS | Encounter Summary ---
Author Organization [facility] Address [address] [place] [address] Care Team Providers Care Casing Crew Pusher Name Role Phone Bonita Saldana Primary Care Provider Unavailable Encounter Details Date Type Department Care Team (Latest Contact Info) Description 02/01/2013 15:30 EDT - 02/01/2013 23:59 EDT Hospital Encounter [facility] [address] [place] [address] Unknown, MD Mavis Elliott Ledezma MD [address] [place] [address] [address] [place] [phone] Discharge Disposition: Auto Discharge Social History Tobacco [...] Auto Discharge Home documented in this encounter Procedure Notes * NETWORK SECURITY OFFICER, SCAN 2 - 02/04/2013 1124 EDTAssociated Order(s): PATHOLOGY - SCANNED documented in this encounter Plan of Treatment Upcoming Encounters Date Type Department Care Team (Late st Contact Info) Description 01/31/2024 10:15 EDT Telemedicine [facility] - S [place] [address] [place] [address] Med Maldonado MD [address] [place] [address] [address] [place] [phone] 08/31/2024 9:40 EST Appointment Naz Perez [address] [address] documented as of this encounter Procedures Procedure Name Priority Date/Time Associated Diagnosis Comments PATHOLOGY - SCANNED 02/04/2013 1 1:24 EDT documented in this encounter Results * PATHOLOGY - SCANNED (02/04/2013 11:24 EDT) 02/04/2013 11:2 4 EDT Narrative 02/04/2013 12:54 EDT Procedure Note NETWORK SECURITY OFFICER, SCAN 2 - 02/04/2013 11:24 EDT Scan 2 [employer] LAB INFO SERVICE AN D SUPPORT & PHONE RESULT documented in this encounter Visit Diagnoses Not on filedocumented in this encounter Care Teams Casing Crew Pusher Relationship Specialty Start Date End Date Bonita Saldana PCP - General 01/31/13 01/15/14 documented as of this encounter
--- OUTSIDE RECORDS SUMMARY | 2024-01-26 12:55 | XMS_ITS | Encounter Summary ---
Author Organization [facility] Address [address] [place] [address] Care Team Providers Care Painting Technician Name Role Phone Unknown, Provider Primary Care Provider [phone] Encounter Details Date Type Department Care Team (Latest Contact Info) Description 07/19/2011 11:08 EST - 07/19/2011 23:59 [facility] Hospital Encounter [address] [address] Elliott Ledezma MD [address] [place] [address] Level [address] [place] [phone] Discharge Disposition: Home or Self Care Social [...] Code Departure Means Destination Home or Self Group Home documented in this encounter Plan of Treatment Upcoming Encounters Date Type Department Care Team (Late st Contact Info) Description 01/31/2024 10:15 EDT Telemedicine [facility] Neurology - S [address] [address] Med Maldonado MD [address] [place] [address], Level [address] [place] [phone] 08/31/2024 9:40 EST Appointment Naz Perez [address] [phone] documented as of this encounter Visit Diagnoses Not on filedocumented in this encounter Care Teams Painting Technician Relationship Specialty Start Date End Date Unknown, Provider, PCP - General 07/19/11 01/30/13 documented as of this encounter
--- OUTSIDE RECORDS SUMMARY | 2024-01-26 12:55 | XMS_ITS | Encounter Summary ---
Author Organization [facility] Address [address] [place] [address] Care Team Providers Care College Professor Name Role Phone None, Provider Primary Care Provider Unavailabl e Reason for Visit * Reason Comments Laboring Encounter Details Date Type Department Care Team (Latest Contact Info) Description 02/09/2010 17:10 EDT - 02/09/2010 18:50 EDT Hospital Encounter [facility] [address] [place], [place] [address] Olga Lidia Hudson MD [address] [place] [phone] Nesha Parada MD [address] [place] [phone] Discharge Disposition: Home or Self Care [...] Sign Reading Time Taken Comments Blood Pressure 115/80 02/09/2010 1720 EDT Pulse 86 02/09/2010 1720 EDT Temperature 35.6 ??C (96.1 ??F) 02/09/2010 1720 EDT Respiratory Rate 20 02/09/2010 1720 EDT Oxygen Saturation - - Inhaled Oxygen Concentration - - Weight 68 kg (150 lb) 02/09/2010 1720 EDT Height 172.7 cm (5' 8) 02/09/2010 1720 EDT Body Mass Index 22.81 02/09/2010 1720 EDT documented in this encounter Discharge Instructions * Discharge Instructions* Kala Morales - 02/09/2010 18:42 EDT Discharge Instructions L&D Call your provider if: ?? Your water breaks There's any bright red bleeding Your are not feeling the baby move Severe headaches and/or blurry vision Contractions are closer together and/or stronger, or you are having constant pain Medications: ?? Continue any present medication Activity: ?? Drink plenty of fluids and eat well As tolerated, lie on your left side while resting/napping Extra rest until you feel better Call Provider's Office For: ?? As needed Be sure to keep all of your scheduled appointments! KALA MORALES MD 02/09/2010 6:42 PM documented in this encounter Medications at Time [...] documented in this encounter Progress Notes * Elli Perez RN - 02/09/[address] Yates at 1800. EFM tracing reactive/cat 1, 2 UCs noted. Plan for discharge to home reviewed with pt. * Nesha Parada - 02/09/2010 1746 EDT PGY 2 Note HPI: 29 y/o at 38 wk with lower back, and bilateral inguinal pain with stomach tightening. This started at 1300. Uncertain about frequency but states she abdomen is constantly tight. Unsure if ctx vs + FM. -LOF. Last seen at [facility] on . 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 Last cervical exam pt was 1cm. Antepartum Summary 1 Patient Stamp Box Department of BUSINESS CONTINUITY GLOBAL DIRECTOR ANTEPARTUM SUMMARY . . Maternal Name: Yolette House : 1980 29 y/o 1 para 0000 at 38+2/7 weeks gestation. [place] LIBIA: 02/21/2010 LIBIA Basis: LMP Confirmed by Ultrasound PAST HISTORY: Disorders diagnosed prior to current Medical Comments: h/o of migraines - take excedrin migraine [place] [facility] - 1997 Gynecological Abnormal PAP Smear: ASCUS Sexually Transmitted Diseases: None CURRENT HISTORY (HPI pg. 1 of 2): Disorders diagnosed during current Medical Substance Abuse: None; Smoking: None; Sexually Transmitted Diseases: None Obstetrical No significant history Medications during current : None TESTING Maternal Labs: A-; Antibody screen: Neg; Rubella titer: Immune; Syphilis Screening: Neg; Gonorrhea Screening: Neg; Chlamydia Screening: Neg; Hepatitis B screen: Neg; Hepatitis C screen: Not Done; HIV: Neg; 1hrGlucose: Normal Serum Screening: Multiple Marker Screening Not Done; Cystic Fibrosis Carrier Screening: Neg Surveillance: Ultrasound House Staff/CNM Signature: Jesusita Yates 02/09/2010 @ 6520 Meds: Alma jonese All: NKDA O: BP 115/80 Pulse 86 Temp 35.6 ??C (96.1 ??F) Resp 20 Ht 1.727 m (5' 8) Wt 68.04 kg (150 lb) LMP OB (LIBIA:02/21/10) FHR: 135 bl, mod rhona, + accel, --> Cat 1 SVE: ft/60/high [place]: irritable , 1 discernable ctx A/P 29 y/o at 38+ 2 otherwise healthy presenting for labor check. Pt not in labor #Discharge home as to when to represent to L&D D/W Nesha Parada MD * Elli Perez, RN - 02/09/2010 1729 EDT Pt presented to L&D at 1710 c/o UCs since 1300 today. Pt reports +backache all day with UCs beginning this afternoon. Unsure of frequency of UC. Pt denies LOF or vaginal bleeding. EFM explainedand applied. Dr Yates notified of pts arrival. documented in this encounter Miscellaneous Notes * Scanned Note-Null - Inpatient, Physician - 02/11/2010 1352 EDT * Scanned Note-Null - Inpatient, Physician - 02/10/2010 0611 EDT * Scanned Note-Null - Inpatient, Physician - 02/09/2010 0000 EDT documented in this encounter Plan of Treatment Upcoming Encounters Date Type Department Care Team (Late st Contact Info) Description 01/31/2024 10:15 EDT Telemedicine [facility] - S [address] [phone] Med Maldonado MD [address] [place] [address], Level [address] [place] [phone] 08/31/2024 9:40 EST Appointment Naz Perez [facility] [address] [place] [address] documented as of this encounter Visit Diagnoses Not on filedocumented in this encounter Discontinued Medications Medication Sig Discontinue Reason Start Date End Da te NONFORMULARY OCP 02/09/2010 documented as of this encounter Orders Diet Count Last Ordered Date First Orde red Date DIET NPO TIME SPECIFIED 1 02/09/2010 Nursing Count Last Ordered Date First Orde red Date MONITORING 1 02/09/2010 Admission Count Last Ordered Date First Orde red Date ADMITTING CONDITION 1 02/09/2010 TEACHING SERVICE 1 02/09/2010 Discharge Count Last Ordered Date First Orde red Date DISCHARGE PATIENT 1 02/09/2010 documented in this encounter Care Teams College Professor Relationship Specialty Start Date End Date None, Provider PCP - General 03/03/09 07/18/11 documented as of this encounter
--- OUTSIDE RECORDS SUMMARY | 2024-01-26 12:55 | XMS_ITS | Encounter Summary ---
Author Organization [facility] Address [address] [place] [address] Care Team Providers Care Plastic Cnc Machine Operator Name Role Phone Unknown, Provider Primary Care Provider [phone] Bonita Saldana Primary Care Provider Unavailable None, Provider Primary Care Provider Unavailabl e Unknown, Provider Primary Care Provider [phone] Angelic Silva APRN Primary Care Provider [phone] Morgan Panchal Primary Care Provider [phone] Angelic Silva APRN Primary Care Provider Encounter Details Date Type Department Care Team (Late st Contact Info) Description 08/11/2011 Documentation Visit [facility] [address] [place], [place] [id number] Elliott Ledezma MD 1 [facility], Level [address] [place] [phone] Social History Tobacco Use Types Packs/Day Years [...] Progress Notes * Elliott Ledezma MD - 08/15/2011 0604 EST [facility] PROGRESS/FOLLOWUP NOTE - 08/11/2011 Earl Nunn MD [address] Nunn: I had the pleasure of seeing your patient, Yolette House, in followup today for symptoms of whole body numbness. As you know, Ms House is a pleasant 30-year-old woman whom I first met at the beginning of July for symptoms of tingling of sudden onset in her left and right arm and leg back in June 2011.I subsequently pursued a workup for central nervous system cause of this problem and I had an MRI of the brain and cervical spine, which is normal. I reviewed the studies personally today and showed them to the patient. The patient reports that she is continuing to have intermittent episodes of tingling in hands, particularly with activity. She continues to experience tingling in feet and legs up to the knees bilaterally. She continues to be without tripping or significant imbalance. There is no bowel or bladder dy sfunction. She does experience some worsening with turning her head side to side and it is worse after a hot shower. Past medical, social and family history are as previously dictated. Allergies: No known drug allergies. Medications: Oral contraceptive and multivitamin. Objective: Blood pressure 110/65, heart rate 72, respiratory rate 8. This is an average weight woman who is in no acute distress. No cervical bruits appreciated. Neurological exam: She is alert and oriented x3, normal cognition, normal fund of knowledge, memoryand attention. Language: No aphasia or dysarthria. Cranial nerves: Pupils are equal and reactive to light. Extraocular movements were intact. Visual valenzuela are full to confrontational testing. Optic discs were sharp. Facial strength and sensation arenormal and symmetric. Palate raised evenly, tongue protruded midline, sternocleidomastoid 5/5. Hearing intact to finger rub. Motor exam: Negative pronator drift, normal tapping and orbiting. Normal tone and bulk. Formal strength testing (left/right): Neck flexion 5, shoulder forward flexion 5/5, elbow flexion/extension 5/5, wrist flexion/extension 5/5, finger extension 4+/4+, finger spread 4+/5-, abductor pollicis brevis 4+/4. Hip flexion 5/5, hip abduction 5/5, knee extension/flexion 5/5, ankle dorsiflexion 5/5, great toe extension 5-/5-. Difficulty with walking on heels. Able to walk on toes. Able to rise from a chair without the assistance of her hands. Sensory: Patchy sensory loss in the upper extremities appears to have a gradient to pin sensation to below the knee bilaterally. There is well preserved vibration at the toes, 18 seconds bilaterally. Reflexes: 2+ bilateral biceps, triceps, brachioradialis, knee jerks, ankle jerks. Toes downgoing bilaterally. Gait: Normal casual gait. Some difficulty with heel walking. MRI cervical spine and MRI brain from 08/07/2011 were reviewed. There is no evidence of SCRIPT SUPERVISOR pathology on either study. Laboratory reviewed C-reactive protein, vitamin D, JIE, anti-SSA/SSB antibodies and sedimentation rate are normal and are available for review in [facility]. 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 In addition, she showed some evidence of distal upper extremity weakness on examination. At this point, I feel that weneed to aggressively evaluate the peripheral nervous system given the sudden onset of the patient'ssymptoms in June. I will bring her back in a semiurgent basis to the EMG nerve conduction studylab in 1 week to evaluate for demyelinating pathology. I can direct additional laboratory workup atthat time depending on the pattern seen on EMG and nerve conduction study. If this study is normal,I will discuss with the patient the possibility of obtaining a skin biopsy to look for small fiber s ensory neuropathy as her symptoms are not abating. Small fiber sensory neuropathies are by definition associated with a normal EMG nerve conduction study. At this point, with a normal MRI of the brain and cervical spine, I do not believe that central nervous system pathologies such as multiple sclerosis are playing a role in this case. Recommendations: 1. Semiurgent EMG/nerve conduction study. 2. Directed laboratory workup based on the results of the electrodiagnostic testing. Thank you for allowing me to participate in the care of your patient. I will be back in touch with the results of her EMG/nerve conduction study and will make additional recommendations at that time.Please do not hesitate to call me with any questions or concerns in the meantime. Sincerely, Electronically Signed by Elliott Ledezma MD 08/19/2011 13:56 Elliott Ledezma MD - Elliott Ledezma MD - Job ID: SM Doc ID: [id number] Ext Doc ID: [id number] cc: MD Elliott Murphy MD documented in this encounter Plan of Treatment Upcoming Encounters Date Type Department Care Team (Late st Contact Info) Description 01/31/2024 10:15 EDT Telemedicine [facility] Neurology - S [place] [address] [place] [id number] Med Maldonado MD [address] [place] [address] [address] [place] [phone] 08/31/2024 9:40 EST Appointment Naz Perez [address] [phone] documented as of this encounter Visit Diagnoses Not on filedocumented in this encounter Additional Health Concerns Infection Onset Date Last Indicated Resolved Time R/O COVID-19 07/15/2020 07/15/2020 07/20/2020 22:1 7 EST documented as of this encounter Care Teams Plastic Cnc Machine Operator Relationship Specialty Start Date End Date Unknown, Provider, PCP - General 07/19/11 01/30/13 Bonita Saldana PCP - General 01/31/13 01/15/14 None, Provider PCP - General 01/16/14 09/01/15 Unknown, ProviderMD PCP - General 09/02/15 05/04/16 Angelic Silva APRN [address] [place] [address] PCP - General 05/05/16 03/26/20 Morgan Panchal PA [address] [place] [address] PCP - General 03/27/20 03/05/23 Angelic Silva APRN [address] [place] [address] PCP - General 03/06/23 documented as of this encounter
--- OUTSIDE RECORDS SUMMARY | 2024-01-26 12:55 | XMS_ITS | Encounter Summary ---
Author Organization [facility] Address [address] [place] [address] Care Team Providers Care Jig Mill Operator Name Role Phone Unknown, Provider Primary Care Provider [phone] Encounter Details Date Type Department Care Team (Late st Contact Info) Description 07/19/2011 Results Only Imaging [facility] [address] [place], [place] [address] Elliott Ledezma MD [address] [place] [phone] Social History Tobacco Use Types Packs/Day Years [...] Telemedicine [facility] Neurology - [address] [id number] Med Maldonado MD [address] [place] [phone] 08/31/2024 9:40 EST Appointment Naz Perez [facility] [address] [place] [address] documented as of this encounter Procedures Procedure Name Priority Date/Time Associated Diagnosis Comments MR C,T SPINE WO CONTRAST 08/07/2011 12:04 EST documented in this encounter Results * MR C,T SPINE WO CONTRAST (08/07/2011 12:04 EST) Anatomical Region Laterality Modality Other 08/07/2011 12:0 4 EST 08/07/2011 13:32 EST Narrative 08/07/2011 13:32 EST MRI of the brain, cervical spine, and thoracic spine August 07, 2011 at 1009. History: Numbness and sensory level, evaluate for demyelinating disease. Comparison: None. Technique: Brain: Sagittal T2 FLAIR, axial T2, axial gradient, axial T1, and axial T2 FLAIR and diffusion-weighted images of the brain were acquired Spine: Sagittal T2, sagittal T1, sagittal proton density, axial T2, and axial T1 images of the cervical and thoracic spine were acquired. ?? Findings: Brain: There is no intracranial mass, mass effect, or midline shift. No extra-axial collections are identified. There are no areas of T2 signal change within the white matter to suggest the presence of demyelinating disease. No restricted diffusion is present to suggest recent acute ischemia. The ventricles are normal in size and shape. The basal cisterns are patent. The orbits appear unremarkable. The paranasal sinuses and mastoids are clear. Cervical spine: The craniocervical junction appears unremarkable. The cerebellar tonsils are normally positioned. Signal within the cervical spinal cord is normal. Specifically, there is no evidence of demyelinating disease in the cervical cord. The cervical vertebral bodies are normally aligned and disc space heights are maintained. The visualized prevertebral soft tissues appear unremarkable. There is no focal herniation, central canal stenosis, or evidence of foraminal impingement in the cervical spine. Thoracic spine: There is no evidence of T2 signal change the thoracic spinal cord to suggest the presence of demyelinating disease. The thoracic vertebral bodies are normally aligned and disc space heights are maintained. Marrow signal is normal. There is no focal herniation, central canal stenosis, or evidence of foraminal impingement in the thoracic spine. Impression: 1. Unremarkable examination of the brain without evidence of demyelinating disease. 2. Unremarkable examinations of the cervical and thoracic spine without evidence of cord signal change, central canal compromise, or foraminal compromise. Procedure Note 08/07/2011 MRI of the brain, cervical spine, and thoracic spine August 07, 2011 at 1009. History: Numbness and sensory level, evaluate for demyelinating disease. Comparison: None. Technique: Brain: Sagittal T2 FLAIR, axial T2, axial gradient, axial T1, and axial T2 FLAIR and diffusion-weighted images of the brain were acquired Spine: Sagittal T2, sagittal T1, sagittal proton density, axial T2, and axial T1 images of the cervical and thoracic spine were acquired. Findings: Brain: There is no intracranial mass, mass effect, or midline shift. No extra-axial collections are identified. There are no areas of T2 signal change within the white matter to suggest the presence of demyelinating disease. No restricted diffusion is present to suggest recent acute ischemia. The ventricles are normal in size and shape. The basal cisterns are patent. The orbits appear unremarkable. The paranasal sinuses and mastoids are clear. Cervical spine: The craniocervical junction appears unremarkable. The cerebellar tonsils are normally positioned. Signal within the cervical spinal cord is normal. Specifically, there is no evidence of demyelinating disease in the cervical cord. The cervical vertebral bodies are normally aligned and disc space heights are maintained. The visualized prevertebral soft tissues appear unremarkable. There is no focal herniation, central canal stenosis, or evidence of foraminal impingement in the cervical spine. Thoracic spine: There is no evidence of T2 signal change the thoracic spinal cord to suggest the presence of demyelinating disease. The thoracic vertebral bodies are normally aligned and disc space heights are maintained. Marrow signal is normal. There is no focal herniation, central canal stenosis, or evidence of foraminal impingement in the thoracic spine. Impression: 1. Unremarkable examination of the brain without evidence of demyelinating disease. 2. Unremarkable examinations of the cervical and thoracic spine without evidence of cord signal change, central canal compromise, or foraminal compromise. Elliott Ledezma MD IMG MRI ORDERABLE S documented in this encounter Visit Diagnoses Not on filedocumented in this encounter Care Teams Jig Mill Operator Relationship Specialty Start Date End Date Unknown, Provider, PCP - General 07/19/11 01/30/13 documented as of this encounter
--- OUTSIDE RECORDS SUMMARY | 2024-01-26 12:55 | XMS_ITS | Encounter Summary ---
Author Organization [facility] Address [address] [place] [address] Care Team Providers Care Printed Circuit Board Designer Name Role Phone None, Provider Primary Care Provider Unavailabl e Encounter Details Date Type Department Care Team (Late Contact Info) Description 01/20/2010 Results Only [facility] Laboratory Services - [facility] [address] [place], [place] [address] Olga Lidia Hudson MD [address] [place] [phone] Social History Tobacco Use Types Packs/Day Years Used Date Smoking Tobacco: Never Assessed Sex and Gender Information Value Date Recorded Sex Assigned at Not on file Gender Identity Female 02/24/2020 22:01 EDT Sexual Orientation Not on file documented as of this encounter Plan of Treatment Upcoming Encounters Date Type Department Care Team (Late Contact Info) Description 01/31/2024 10:15 EDT Telemedicine [facility] Neurology - S [address] [phone] Med Maldonado MD [address] [place] [address], Level [address] [place] [phone] 08/31/2024 9:40 EST Appointment [address] [address] documented as of this encounter Procedures Procedure Name Priority Date/Time Associated Diagnosis Comments GROUP B STREP PCR Routine 01/20/2010 12: 10 EDT documented in this encounter Results * GROUP B STREPTOCOCCUS MOLECULAR DETECTION (01/20/2010 12:10 EDT) Specimen Description Vaginal and Rectal [facility] Result No Group B beta streptococcal DNA detected by PCR. [facility] Report Status Final 01/20/2010 [facility] Specimen of unknown material (specimen) 01/20/2010 12:10 EDT 01/20/2010 18:30 EDT Olga Lidia Hudson MD MICROBIOLOGY - GENER AL ORDERABLES [facility] [address] [place] [address] documented in this encounter Visit Diagnoses Not on filedocumented in this encounter Care Teams Printed Circuit Board Designer Relationship Specialty Start Date End Date None, Provider PCP - General 03/03/09 07/18/11 documented as of this encounter
--- OUTSIDE RECORDS SUMMARY | 2024-01-26 12:55 | XMS_ITS | Encounter Summary ---
Author Organization [facility] Address [address] [place] [address] Care Team Providers Care Communication Specialist Name Role Phone Unknown, Provider Primary Care Provider [phone] Encounter Details Date Type Department Care Team (Late st Contact Info) Description 10/05/2012 Abstract [facility] Ankle Program - [address] [place] [address] Kendra Bradford NP [address] [place] [phone] Social History Tobacco Use Types Packs/Day Years [...] Description 01/31/2024 10:15 EDT Telemedicine [facility] Neurology - [address] [address]38[address] Med Maldonado MD [address] [place] [address], [address] [place] [phone] 08/31/2024 9:40 EST Appointment Naz Perez [facility] [address] [place] [address] documented as of this encounter Visit Diagnoses Not on filedocumented in this encounter Care Teams Communication Specialist Relationship Specialty Start Date End Date Unknown, Provider, PCP - General 07/19/11 01/30/13 documented as of this encounter
--- OUTSIDE RECORDS SUMMARY | 2024-01-26 12:55 | XMS_ITS | Encounter Summary ---
Author Organization [facility] Address [address] [place] [address] Care Team Providers Care Product Grader Name Role Phone None, Provider Primary Care Provider Unavailabl e Encounter Details Date Type Department Care Team (Latest Contact Info) Description 01/20/2010 10:41 EDT - 01/20/2010 10:46 EDT Hospital Encounter [facility] - Other [address] [place] [address] Olga Lidia Hudson MD [address] [place] [phone] Discharge Disposition: Home or Self Care Social [...] Info) Description 01/31/2024 10:15 EDT Telemedicine [facility] Neurology - S [address] [phone] Med Maldonado MD [address] [place] [address] [address] [place] [phone] 08/31/2024 9:40 EST Appointment Naz Perez [facility] [address] [place] [address] documented as of this encounter Visit Diagnoses Not on filedocumented in this encounter Care Teams Product Grader Relationship Specialty Start Date End Date None, Provider PCP - General 03/03/09 07/18/11 documented as of this encounter
--- OUTSIDE RECORDS SUMMARY | 2024-01-26 12:55 | XMS_ITS | Encounter Summary ---
Author Organization [facility] Address [address] [place] [address] Care Team Providers Care Cutting Machine Fixer Name Role Phone Unavailable Primary Care Provider Unavailabl e Encounter Details Date Type Department Care Team (Late st Contact Info) Description 12/13/2006 17:05 EDT Hospital Encounter [facility] [address] [place] [address] Valorie Flores NP 111 [facility] [address] [place] [phone] Discharge Disposition: Auto Discharge Social History Tobacco Use Types Packs/Day Years Used Date Smoking Tobacco: Never Assessed Sex and Gender Information Value Date Recorded Sex Assigned at Not on file Gender Identity Female 02/24/2020 22:01 EDT Sexual Orientation Not on file documented as of this encounter Discharge Disposition Disposition Code Departure Means Destination Auto Discharge documented in this encounter Plan of Treatment Upcoming Encounters Date Type Department Care Team (Late st Contact Info) Description 01/31/2024 10:15 EDT Telemedicine [facility] Neurology - S [address] [address] Med Maldonado MD [address] [place] [address] [address] [place] [phone] 08/31/2024 9:40 EST Appointment Naz Perez [facility] [address] [place], [place] [phone] documented as of this encounter Visit Diagnoses Not on filedocumented in this encounter
--- OUTSIDE RECORDS SUMMARY | 2024-01-26 12:55 | XMS_ITS | Encounter Summary ---
Author Organization [facility] Address [address] [place] [address] Care Team Providers Care Grease Man Name Role Phone Unknown, Provider Primary Care Provider [phone] Bonita Saldana Primary Care Provider Unavailable None, Provider Primary Care Provider Unavailabl e Unknown, Provider Primary Care Provider [phone] Angelic Silva APRN Primary Care Provider Morgan Panchal Primary Care Provider [phone] Angelic Silva APRN Primary Care Provider Encounter Details Date Type Department Care Team (Late st Contact Info) Description 10/04/2011 Documentation Visit [facility] [address] [place], [place] [phone] Elliott Ldeezma MD 1 [facility], Level [address] [place] [phone] Social History Tobacco Use Types Packs/Day Years Used Date Smoking Tobacco: Never Alcohol Use Standard Drinks/Week Comments No 0 (1 standard drink = 0.6 oz pur e alcohol) Sex and Gender Information Value Date Recorded Sex Assigned at Not on file Gender Identity Female 02/24/2020 22:01 EDT Sexual Orientation Not on file documented as of this encounter Procedure Notes * Elliott Ledezma MD - 10/05/2011 0853 EDT [facility] PROCEDURE REPORT SERVICE DATE: 10/04/2011 FINANCIAL MANAGEMENT: Elliott Ledezma MD. PROCEDURE: Skin biopsy, left ankle and thigh. INDICATION: Evaluation for small fiber sensory neuropathy. PROCEDURE: A time-out was performed and right site, right patient, right procedure was confirmed. The patient's left lower extremity was prepped sterilely; 5 mL of 2% lidocaine with epinephrine was injected subcutaneously at the left ankle and left mid thigh. Punch skin biopsy was performed at the left ankle and left thigh without complication. Patient had band-aides pressed into place after the procedure. The skin was sent to [facility] for analysis of epidural nerve fiber density. The patient was discharged to home in stable condition and was instructed to put Neosporin and re-change band-aides tonight. Unless otherwise noted, there were no complications, no blood loss, cultures obtained, specimens removed, or drains retained. Electronically Signed by Elliott Ledezma MD 10/06/2011 08:50 Elliott Ledezma MD - Elliott Ledezma MD - GHAN[facility]YAM Job ID: SM Doc ID: [id number] Ext Doc ID: [id number] cc: MD Elliott Murphy MD documented in this encounter Plan of Treatment Upcoming Encounters Date Type Department Care Team (Late st Contact Info) Description 01/31/2024 10:[address] [facility] Neurology - [address] [phone] Med Maldonado MD [address] [place] [address], [address] [place] [phone] 08/31/2024 9:40 EST Appointment Naz Perez [address] [address] documented as of this encounter Visit Diagnoses Not on filedocumented in this encounter Additional Health Concerns Infection Onset Date Last Indicated Resolved Time R/O COVID-19 07/15/2020 07/15/2020 07/20/2020 22:1 7 EST documented as of this encounter Care Teams Grease Man Relationship Specialty Start Date End Date Unknown, Provider, PCP - General 07/19/11 01/30/13 Bonita Saldana PCP - General 01/31/13 01/15/14 None, Provider PCP - General 01/16/14 09/01/15 Unknown, Provider, PCP - General 09/02/15 05/04/16 Angelic Silva APRN [address] [place] [address] PCP - General 05/05/16 03/26/20 Morgan Panchal PA [address] [place] [address] PCP - General 03/27/20 03/05/23 Angelic Silva APRN [address] [place] [address] PCP - General 03/06/23 documented as of this encounter
--- OUTSIDE RECORDS SUMMARY | 2024-01-26 12:55 | XMS_ITS | Encounter Summary ---
Author Organization [facility] Address [address] [place] [address] Care Team Providers Care Concrete Worker Name Role Phone Unknown, Provider Primary Care Provider [phone] Bonita Saldana Primary Care Provider Unavailable None, Provider Primary Care Provider Unavailabl e Unknown, Provider Primary Care Provider [phone] Angelic Silva APRN Primary Care Provider Morgan Panchal Primary Care Provider [phone] Angelic Silva APRN Primary Care Provider Encounter Details Date Type Department Care Team (Late st Contact Info) Description 10/25/2011 Documentation Visit [facility] [address] [place], [place] [id number] Elliott Ledezma MD 1 [facility], [address] [place] [phone] Social History Tobacco Use Types Packs/Day Years [...] Progress Notes * Elliott Ledezma MD - 10/26/2011 0744 EDT [facility] CARE SERVICE PROGRESS/FOLLOWUP NOTE - 10/25/2011 Earl Nunn MD [address] Nunn: I had the pleasure of seeing your patient, Yolette House in neuromuscular followup today for symptoms of numbness. Ms House is a pleasant 30-year-old woman who I first met in July for the sudden onset of numbness in multiple body parts. The numbness has now centered over her feet and is described as tingling with intermittent burning and pain there. 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 We have pursued an aggressive evaluation of this problem. From a neurological standpoint, and she has normal EMG nerve conduction, as well as a skin biopsy to look atepidermal nerve fiber density. The biopsy was performed on 10/04/2011 and has a normal epidermal nerve fiber density at the left ankle and thigh. Past medical, social and family history are as previously dictated. Medications: Oral contraceptive. Directed clinical examination: Negative straight leg raise bilaterally. Positive Tinel sign over the peroneal nerve at the fibular head bilaterally. Negative Tinel sign at the foot. Motor exam: Full power of her bilateral lower extremities with normal tone and bulk. Sensory: Normal pin, temperature and vibratory sense in the bilateral feet and legs with preserved exquisite sharp, dull discrimination at the toes. Reflexes: 2+ bilateral knee jerks and ankle jerks. Toes downgoing. Twenty minutes were spent with the patient today, of which more than half were spent in interpretation of results and counseling. Impression: Numbness/neuropathic pain: The patient's symptoms of intermittent tingling, numbness and pain may be consistent with neuropathic pain. At this point, we do not have definitive proof of a central or peripheral nervous system cause of this problem. The Tinel's sign observed at the patient's peroneal nerve at the fibular head does raise the question of whether or not she has peroneal nerve compression from crossing her legs at that site contributing in part to her foot numbness. It might be reasonable to exclude a vascular cause of symptoms since her symptoms seem to be worse with exercise and with kneeling on her legs for prolonged periods of time. At this point, I do not recommend any additional neurological workup for this problem. I have recommended that the patient abstain from crossing her legs. In addition, it would be reasonable given the patient's neuropathic pain to consider therapy for neuropathic pain. I would recommend starting with either gabapentin 100 mg 3 times per day, increasing every other week up to a goal dose of 300 [id number] mg 3 times per day, or amitriptyline 10 mg at bedtime, increasing by 10 mg every other week toa goal dose of 100 mg at bedtime, or Effexor XR starting at 37.5 mg in the morning and increasing by one tablet to a goal dose of 150 mg daily as needed. Any of the above would be acceptable choices and she would like to discuss this with you before making a decision. Recommendations: 1. Consider trial of neuropathic pain medicine as above. 2. Consider evaluation of lower extremity vascular supply. Thank you for allowing me to participate in the care of your patient. I will not schedule her for followup at this time, but would be happy to see her back should her symptoms change in the future. Please do not hesitate to call me with any questions. Sincerely, Electronically Signed by Elliott Ledezma MD 10/28/2011 15:40 Elliott Ledezma MD - Elliott Ledezma MD - AN Job ID: Doc ID: [id number] [facility] Doc ID: [id number] cc: MD Elliott Murphy MD documented in this encounter Plan of Treatment Upcoming Encounters Date Type Department Care Team (Late st Contact Info) Description 01/31/2024 10:15 EDT Telemedicine [facility] [place] [address] [place] [address] Med Maldonado MD [address] [place] [address], [address] [place] [address] 08/31/2024 9:40 EST Appointment Naz Perez [address] [id number] documented as of this encounter Visit Diagnoses Not on filedocumented in this encounter Additional Health Concerns Infection Onset Date Last Indicated Resolved Time R/O COVID-19 07/15/2020 07/15/2020 07/20/2020 22:1 7 EST documented as of this encounter Care Teams Concrete Worker Relationship Specialty Start Date End Date Unknown, Provider, PCP - General 07/19/11 01/30/13 Bonita Saldana PCP - General 01/31/13 01/15/14 None, Provider PCP - General 01/16/14 09/01/15 Unknown, Provider, PCP - General 09/02/15 05/04/16 Angelic Silva APRN [address] [place] [address] PCP - General 05/05/16 03/26/20 Morgan Panchal PA [address] [place] [address] PCP - General 03/27/20 03/05/23 Angelic Silva APRN [address] [place] [address] PCP - General 03/06/23 documented as of this encounter
--- OUTSIDE RECORDS SUMMARY | 2024-01-26 12:55 | XMS_ITS | Encounter Summary ---
Author Organization [facility] Address [address] [place] [address] Care Team Providers Care Block Cableman Name Role Phone Unknown, Provider Primary Care Provider [phone] Bonita Saldana Primary Care Provider Unavailable None, Provider Primary Care Provider Unavailabl e Unknown, Provider Primary Care Provider [phone] Angelic Silva APRN Primary Care Provider [phone] Morgan Panchal Primary Care Provider [phone] Angelic Silva APRN Primary Care Provider Encounter Details Date Type Department Care Team (Late st Contact Info) Description 11/26/2012 Documentation Visit [facility] [address] [place], [place] [phone] Elliott Ledezma MD 1 [facility], [address] [place] [phone] Social History Tobacco Use Types Packs/Day Years [...] Progress Notes * Elliott Ledezma MD - 11/29/2012 1511 EDT [facility] SERVICE PROGRESS/FOLLOWUP NOTE - 11/26/2012 Earl Nunn MD [facility] [address] [place] [address] Nunn: I had the pleasure of seeing your patient in followup at the neuromuscular clinic today for symptoms of numbness and the new complaint of vertigo. Ms Tellez a 32-year-old woman whom I have been following since July of 2011 with multiple areas of numbness. She now reports that the numbness seems to be restricted to her feet, toes and mid foot, described as pins and needles and occasional burning, which is worse when standing on her feet for prolonged periods of time. At the time of her last visit to clinic for this process in February of 2012, she had Tinel sign over the fibular head as well as over the instep bilaterally. She was evaluated by Dr Dhara Bradford and orthopedics to see if there could be evidence of a neuroma or some other process. Since February, it appears that her symptoms have changed to some degree. Dr Bradford felt that this is likely not an orthopedic in nature. The patient has changed the type of shoes that she is wearing and it does not seem to make much difference. She continues to be without imbalance, tripping or catching toes and is not experiencing numbness in other parts of the body. She is also without dry eyes, dry mouth, orthostasis, bloating, and loss of the ability to sweat. She also experienced at the beginning of 09/2012 the acute onset of a respiratory illness which was followed by the acute onset of vertigo, which lasted for 3 weeks. She was evaluated by Dr Hubert Hooks at [facility] who felt that this could be either a central or peripheral causeof vertigo. Given her preceding history of numbness, he was concerned that the patient had demyelinating pathology. He did not have access to the MRI scan of the brain, cervical and thoracic spine, which I had sent from 08/2011. Those studies were completely normal. The episode of vertigo was described as spinning in nature with associated movement. There is no associated nausea. Symptoms lasted for about 3 weeks and then aborted spontaneously. There have been no other episodes of dizziness. Shecontinues to be without episodes of double vision, loss of vision, or hemibody numbness or weakness. Review of Systems: A 10-system review is performed and is negative other than that mentioned in history of present illness. Past medical, social and family history are as previously dictated. Medications: IUD. Allergies: No known drug allergies. Objective: Blood pressure 120/80, heart rate 62, respiratory rate 8. This is an average weight woman who is in no acute distress. No cervical bruits appreciated. Neurological exam: She was alert and oriented x3, she had normal cognition, normal fund of knowledge, memory and attention. Language: No aphasia or dysarthria. Cranial nerves: Pupils are equal and reactive to light. Extraocular movements are intact without any evidence of nystagmus. There is no evidence of an ELLIS. Visual valenzuela are full to confrontational testing, optic discs were sharp. Facial strength and sensation are normal and symmetric, palate raised evenly, tongue protruded midline, sternocleidomastoid 5/5. Hearing is intact to finger rub. Motor exam: Negative pronator drift, normal tapping and orbiting, normal tone and bulk, full power of her upper and lower extremities. Sensory: Diminished pin sensation to mid foot with well preserved sharp/dull discrimination. There is no temperature or light touch loss in a similar distribution. Normal vibration at the toes 28 seconds bilaterally. Negative Romberg. Tinel's sign over the anterior foot and fibular heads, which were previously appreciated, are not appreciated on today's examination. Reflexes: 2+ bilateral biceps, triceps, brachioradialis, knee jerks and ankle jerks. Toes downgoing. Coordination: Avkant-uh-qnco was normal. Gait: Normal casual, toe, heel and tandem walking. Reviewed previous workup from 2011, includes a hemoglobin A1c 4.8, normal SPEP/serum immunofixation, JIE less than 40, anti-SSA/SSB antibodies negative. Skin biopsy, left ankle and thigh 09/2011 for epidermal nerve fiber density; at the ankle density is9.67, at the thigh density 10.4, which are well within the normal range of density for epidermal nerve fibers. At the left thigh she has normal sweat gland denervation. Rereviewed EMG nerve conduction study from August 2011, which shows normal bilateral peroneal motor responses and normal right tibial motor response, normal left median, ulnar and tibial motor responses with normal F-wave latencies as well. Sensory nerve responses show a normal right superficial p eroneal, medial plantar, sural and left median, ulnar and sural sensory response. This study was interpreted as normal and I continue to agree with that interpretation. Impression: 1. Vertigo. The patient had an episode of short-lived vertigo, which lasted for three weeks in the setting of aviral illness. The most likely cause of this was a viral vestibulitis since it was temporally tied to this upper respiratory infection. Her ear, nose and throat specialist was worried that this couldbe kiosk sales representative of demyelinative pathology, especially in light of the patient's sensory complaints. I feel it is reasonable to repeat an MRI scan of the brain as we have not obtained definitive evidence of a reason for sensory loss. If this is unremarkable, I do not recommend additional workup for central nervous system demyelination. 2. 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 I would like to reevaluate the patient electrically with an EMG nerve conduction study to see if there has been any change house attendant the course of a year and a half. At the same time, I have reopened the testing for small fiber sensory neuropathy with additional laboratory testing to include a hemoglobin A1c, TSH/free T4, vitamin B12/methylmalonic acid, serum copper, SPEP/serum immunofixation, JIE, rheumatoid factor, anti-SSA/SSB antibodies, comprehensive metabolic profile, CBC with differential, hepatitis C/serum cryoglobulins. The patient will have these tests drawn as soon as her new insurance policy goes into place and we will see her back for the EMG nerve conduction study at our lab and I can interpret the results and make some additional recommendations on that day. I did discuss with her medication for neuropathic pain specifically tricyclic antidepressants, SNRIs, and gabapentin. She is going to think about this and we can discuss it again when she comes back for the EMG. Recommendations: Repeat EMG nerve conduction study. Laboratory testing as above. Thank you for allowing me to participate in the care of your patient. I will see her back in the neuromuscular EMG lab and can make some additional recommendations on that day. Please do not hesitateto call with any questions or concerns. Sincerely, Electronically Signed by Elliott Ledezma MD 12/05/2012 20:39 Elliott Ledezma MD - Elliott Ledezma MD - [facility] Job ID: SM Doc ID: [id number] Ext Doc ID: [id number] cc: MD Elliott Murphy, MD Kendra Medina APRN documented in this encounter Plan of Treatment Upcoming Encounters Date Type Department Care Team (Late st Contact Info) Description 01/31/2024 10:15 EDT Telemedicine [facility] - S [address] [phone] Med Maldonado MD [address] [place] [address], [address] [place] [address] 08/31/2024 9:40 EST Appointment Naz Perez [address] [address] documented as of this encounter Visit Diagnoses Not on filedocumented in this encounter Additional Health Concerns Infection Onset Date Last Indicated Resolved Time R/O COVID-19 07/15/2020 07/15/2020 07/20/2020 22:1 7 EST documented as of this encounter Care Teams Block Cableman Relationship Specialty Start Date End Date Unknown, Provider, PCP - General 07/19/11 01/30/13 Bonita Saldana PCP - General 01/31/13 01/15/14 None, Provider PCP - General 01/16/14 09/01/15 Unknown, ProviderMD PCP - General 09/02/15 05/04/16 Angelic Silva APRN [address] [place] [id number] PCP - General 05/05/16 03/26/20 Morgan Panchal PA [address] [place] [address] PCP - General 03/27/20 03/05/23 Angelic Silva APRN [address] [place] [address] PCP - General 03/06/23 documented as of this encounter
--- OUTSIDE RECORDS SUMMARY | 2024-01-26 12:55 | XMS_ITS | Encounter Summary ---
Author Organization [facility] Address [address] [place] [address] Care Team Providers Care Assistant Teaching Professor Name Role Phone Unknown, Provider Primary Care Provider [phone] Bonita Saldana Primary Care Provider Unavailable None, Provider Primary Care Provider Unavailabl e Unknown, Provider Primary Care Provider [phone] Angelic Silva APRN Primary Care Provider Morgan Panchal Primary Care Provider [phone] Angelic Silva APRN Primary Care Provider Encounter Details Date Type Department Care Team (Late st Contact Info) Description 07/19/2011 Documentation Visit [facility] [address] [place], [place] [phone] Elliott Ledezma MD 1 [facility], [address] [place] [phone] Social History Tobacco Use Types Packs/Day Years Used Date Smoking Tobacco: Never Alcohol Use Standard Drinks/Week Comments No 0 (1 standard drink = 0.6 oz pur e alcohol) Sex and Gender Information Value Date Recorded Sex Assigned at Not on file Gender Identity Female 02/24/2020 22:01 EDT Sexual Orientation Not on file documented as of this encounter Consult Notes * Elliott Ledezma MD - 07/20/2011 1232 EST [facility] CONSULTATION - 07/19/2011 Earl Nunn MD [address] [address] NE[address] Dear Dr Nunn: Thank you for requesting neuromuscular consultation on your patient, Yolette House, for symptoms of body numbness. Ms House is a very pleasant 30-year-old woman who presents with a chief complaint of numbness. Her symptoms began approximately 3 weeks ago, where she noticed numbness and tingling of her left foot and left hand, which was of sudden onset. Over about 24 hours, it spread to involve her right bra strap area, right hand and right foot. Numbness is described as pins and needles. Approximately 3 days after it involved the right side, she noticed symptoms in her back. In the last week, she has noticed that this numbness seems to be spreading up to her elbows and to her knees bilaterally. There was a mild left heavy arm, but she has not otherwise noticed any weakness. Her symptoms are worse in the hot shower and worst in the morning and when at rest. She did have an upper respiratory infection a couple of weeks before the onset of her symptoms. She denies associated shortness of breath, dysarthria, dysphagia, dizziness, double vision, loss of vision, bowel or bladder dysfunction, orthostasis and Lhermitte's phenomenon. The patient had some blood work drawn at a local emergency room for this problem. I do not have anyrecords to review regarding previous workup for this problem today. Review of Systems: A 10-system review is performed and is negative other than that mentioned in thehistory of present illness. Past Medical History: None. 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 She does not use alcohol or smoke. Family History: No family history of neurological disorders. Allergies: No known drug allergies. Medications: 1. Oral contraceptive. 2. Multivitamin. Physical exam: Blood pressure 110/70, heart rate 66, respiratory rate 8. This is an average weight woman who is in no acute distress. No cervical bruits appreciated. Neurological examination: She is alert and oriented x3. She has a normal cognition with normal fundof knowledge, memory and attention. Language: No aphasia or dysarthria. Cranial nerves: Pupils were equal and reactive to light in a light and dark room. Extraocular movements were intact without any evidence of an ELLIS, optic discs were sharp. Visual valenzuela are full to confrontational testing. Facial strength and sensation were normal and symmetric, palate raised evenly, tongue protruded midline, sternocleidomastoid 5/5. Hearing intact to finger rub bilaterally. Motor exam: Negative pronator drift, normal tapping and orbiting, normal tone and bulk. Full power of her upper and lower extremities. Able to arise from a low chair without the assistance of her hands. Able to walk on toes and heels easily. Able to perform a deep squat. Sensory: Patchy sensory loss in the upper and lower extremities, but appears to have a gradient to pin sensation to the thighs bilaterally and to elbows bilaterally. There is no truncal sensory level. There is no shield sign. Vibration intact at bilateral toes 25 seconds bilaterally. Negative Romberg. Reflexes: 2+ bilateral biceps, triceps, brachioradialis, knee jerks and ankle jerks. Toes downgoingbilaterally. Negative Hart's and Tromners bilaterally. Coordination: Zilqdf-kv-gyuh is normal. Gait: Normal casual, toe, heel and tandem walking. Impression: Numbness/pain in limbs. The patient had the sudden onset of numbness a few weeks prior to this note. It appears to be worsein a hot shower. She has patchy pin loss on examination today. Her exam does not localize well to the peripheral or to the central nervous system. At this point, her exam does not localize well to the peripheral nervous system with well preserved vibration at the toes and normal reflexes. In a young woman with a sudden onset of sensory complaints, one does become concerned for demyelinative pathology, and I will begin evaluation with an MRI of the brain, cervical and thoracic spine. I have alsosent off laboratory testing including an JIE, anti-SSA/SSB antibodies, ESR, CRP and a vitamin D leve l. If this workup of the central nervous system is unremarkable, this could represent a sensory predominant variant of Guillain-Vermillion syndrome. We could evaluate the patient with an EMG nerve conduction study if needed in the future. I would like to proceed in a stepwise fashion. Should the patientbegan to develop weakness or shortness of breath, she was instructed to call me immediately, so I can either bring her back for an urgent visit or have her go to the emergency room for a more urgent workup. Recommendations: 1. MRI brain, cervical and thoracic spine. 2. Laboratory testing as above. 3. Consider EMG if above workup is unremarkable. Thank you for this interesting consultation. I will review the results of the above workup and can make additional plan for either a second clinic visit or evaluation in the EMG lab with me in the future. Please do not hesitate to call with any questions or concerns. Sincerely, Electronically Signed by Elliott Ledezma MD 07/22/2011 14:14 Elliott Ledezma MD - Elliott Ledezma MD - [facility] Job ID: SM Doc ID: [id number] Ext Doc ID: [id number] cc: MD Elliott Murphy MD documented in this encounter Plan of Treatment Upcoming Encounters Date Type Department Care Team (Late st Contact Info) Description 01/31/2024 10:15 EDT Telemedicine [facility] - S [address] [address] Med Maldonado MD [address] [place] [address], [address] [place] [phone] 08/31/2024 9:40 EST Appointment Naz Perez [address] [phone] documented as of this encounter Visit Diagnoses Not on filedocumented in this encounter Additional Health Concerns Infection Onset Date Last Indicated Resolved Time R/O COVID-19 07/15/2020 07/15/2020 07/20/2020 22:1 7 EST documented as of this encounter Care Teams Assistant Teaching Professor Relationship Specialty Start Date End Date Unknown, Provider, PCP - General 07/19/11 01/30/13 Bonita Saldana PCP - General 01/31/13 01/15/14 None, Provider PCP - General 01/16/14 09/01/15 Unknown, Provider, PCP - General 09/02/15 05/04/16 Angelic Silva APRN [address] [place] [address] PCP - General 05/05/16 03/26/20 Morgan Panchal PA [address] [place] [address] PCP - General 03/27/20 03/05/23 Angelic Silva APRN [address] [place] [address] PCP - General 03/06/23 documented as of this encounter
--- OUTSIDE RECORDS SUMMARY | 2024-01-26 12:55 | XMS_ITS | Encounter Summary ---
Author Organization [facility] Address [address] [place] [address] Care Team Providers Care Electrical Systems Design Engineer Name Role Phone None, Provider Primary Care Provider Unavailabl e Reason for Visit * Reason Comments Rupture of Membranes Laboring Encounter Details Date Type Department Care Team (Latest Contact Info) Description 03/02/2010 6:56 EDT - 03/05/2010 13:42 EDT Hospital Encounter [facility] Mother/Baby Unit [address] [place] [address] Nesha Parada MD [address] [place] [phone] Lala Bettencourt MD [address] [place] [phone] Discharge Disposition: Home or Self Care [...] Sign Reading Time Taken Comments Blood Pressure 133/89 03/05/2010 0815 EDT Pulse 62 03/05/2010 0815 EDT Temperature 36.6 ??C (97.9 ??F) 03/05/2010 0815 EDT Respiratory Rate 18 03/05/2010 0815 EDT Oxygen Saturation 96% 03/04/2010 1525 EDT Inhaled Oxygen Concentration - - Weight - - Height - - Body Mass Index - - documented in this encounter Discharge Summaries * Mariya Culver MD - 03/03/2010 0542 EDT Discharge Summary 1 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 . Maternal Name: Yolette House : 1980 Attending: Admission: 03/02/2010 Discharge:03/05/2010 Reason for Admission: 29 y/o 1 para 0000 at 40+0/7 weeks gestation. [place]. PAST HISTORY: Disorders diagnosed prior to current Medical Comments: H/o of migraines - take excedrin Migraine Blackduck Teeth - 1997 Gynecological Abnormal PAP Smear: ASCUS Sexually Transmitted Diseases: None CURRENT HISTORY (HPI): Disorders diagnosed during current Medical Substance Abuse: None; Smoking: None; Sexually Transmitted Diseases: None Obstetrical None Medications during current : None Maternal Labs: A-; Antibody screen: Neg; Rubella titer: Immune; Syphilis Screening: Neg; Gonorrhea Screening: Neg; Chlamydia Screening: Neg; Hepatitis B screen: Neg; Hepatitis C screen: Not Done; HIV: Neg; 1hrGlucose: Normal LABOR INFORMATION Labor Onset: Spontaneous; Augmentation: Oxytocin GBS Status: Negative; GBS Prophylaxis: None Labor Analgesia: None; Labor & Delivery Medications: None VTX Continuous External FHRM; Abnormal FHR Patterns: Intermittent Moderate Variables, Amniotic Fluid Color: Clear; Duration Rupture of Membranes: 24-48 hours DELIVERY INFORMATION Spontaneous Vaginal Delivery; Episiotomy: None; Lacerations: None; EBL: 500-1000 Delivery Comments: 20-30 minute period of mild tachycardia with heart rate in 160-180 range Placenta: Delivery Method: Spontaneous; Configuration: Normal Labor and Delivery Complications and/or Procedures: Premature Rupture of Membranes INFORMATION Weight: 3782 grams Sex: Female Delivery Date: 03/03/2010 Delivery Time: 0511 Apgars: 81 , 95 Discharge Summary 2 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 . : Additional Comments: Please discuss with your doctor if you have symptoms of post depressionand please discuss contraception plans. Diet Activity Discharge Medications / Dosage Other Problems / Discharge Diagnoses Follow-Up Plan for each Problem Condition at Discharge: ____good, stable Discharge Disposition: [] Home [] Other: House Staff/CNM Signature: Maris Matthew 03/03/2010 @ 0543 Attending: Tal CC: [] Attending, [x] Nesha Parada [] VNA [] Other documented in this encounter Discharge Instructions * Discharge Instructions* Tiffany Mann RN - 03/05/2010 10:37 EDT Diet: Regular Activity: Nothing in vagina for six weeks. (No tampons, no douches, no intercourse) Rest and recover at home for 2 weeks, then gradually increase activity. Skin/Wound Care: Not applicable Bathing: No bath or immersion until follow up with your doctor. Control: Please talk to your doctor or supervisor assembly department about control options at your visit. Pending Results: Not applicable Symptoms to Call Your Doctor About: Abdominal pain different from the cramping or afterpains following the Foul smelling vaginal discharge Pain or redness in your breasts, excessive nipple soreness or problems with breast feeding. Please notify your doctor or supervisor assembly department if you feel overwhelmingly sad, guilty, angry, or depressed, as these might be symptoms of post- depression, which can be treated. Temperature greater than 100.5 degrees F (38.1 degrees C) Vaginal bleeding heavier than a period, soaking greater than 1 pad per hour or a return of heavy bleeding after it has slowed down Appointments: See your market editor in 2 weeks. Please call for an appointment. Follow-up Services Contacted at Discharge: none Health Risk and Disease Information: Not applicable documented in this encounter Medications at Time [...] Progress Notes * Rosalie Collier CNM - 03/05/2010 1113 EDT S: Pt in room with present. Pt states that she is ready for discharge home. She is happy with her and states that she is happy that she had a natural childbirth. She states that her has 2 weeks off from work and then she will have help from friends and family as needed. She isplaning on taking 6-10 weeks off from work depending on what her work will allow. She is states herpain is well controlled on tylenol and motrin. She is oob walking independently in halls, showered today, +flatus. Pt states that is going really well with just a little bit of sorenesson her nipples. She states that she worked with the for latch. She states she has no concerns. O:Blood pressure 133/89, pulse 62, temperature 36.6 ??C (97.9 ??F), temperature source Temporal, resp. rate 18, SpO2 96.00%. Breast filling Nipples with small blisters bilat FF down 2 Scant Rubra Slight swelling noted +2 lower extremity edema noted Negative Homans sign A: 29 y.o. PPD 2 stable and recovering well VSS BF well independently P: Discharge home with follow up in 2 and 6 weeks Teaching complete with pt: Warning signs, when to call, signs of infection, signs of post depression Continue tylenol and motrin at home for pain Milena LAZAR Pt was seen prior to d/c- I agree with the note and have instructed Yolette to come in and see a Car[place] provider @ 2 weeks and to call for any problems. Pt states understanding. Pt family present. Of note, through this chart there are a # of different LIBIA and I have reviewed the doucmentation and AP records. Pt had onset of labor and rupture of membranes at 41 + 2 weeks. LIBIA was 02/23/10 * Mariya Culver MD - 03/05/2010 0703 EDT Resident PGY1 Progress Note Rh + / RI POD 2 Subjective: Tolerating diet, voiding, ambulating. Pain well controlled. Lochia moderate and decreasing. without difficulty. + flatus/ denies bowel movement. No SOB, chest pain, nausea or calf tenderness. +back pain which is worse with breast feeding and laying down, pt states this is a common problemfor her. Objective: VS: BP 138/86 Pulse 62 Temp(Src) 36.8 ??C (98.2 ??F) (Temporal) Resp 16 SpO2 96% Tm 98.2 Gen: laying in bed with baby, no acute distress, comfortable Lungs: Clear to auscultation in all [place]a CV: RRR, S1 S2 normal ABD: Soft, appropriately tender, +BS, fundus soft, 2 cm below umbilicus. Extrem: mild swelling in bilateral lower extremities Assessment & Plan: 29 y.o. female post day 2 s/p 40+0/7 weeks course complicated by premature rupture of membranes. 1. Routine post care, nothing per vagina for 6 wks 2. Encourage ambulation, PO intake 3. Pain Management--con't current medication regimen 4. Bowel management--recommend stool softeners to minimize need to strain 5. Breast feeding - with no complications. 6. depression--discussed with patient, understands signs/symptoms 7. Contraception - Will defer decision making at this time Rh + / RI Dispo. Likely today 03/05/2010. Mariya Culver MD PGY-1 Pager [phone] 03/05/2010 7:04 * Nesha Parada - 03/04/2010 0958 EDT Late Entry Note: Pt presented with SROM but no labor. Options for management discussed with patientincluding observation and augmentation. Decision was made to augment with pitocin at noon (around 12 hrs ruptured) if no labor. 41w3d EFW: 7 lbs Reassuring FHT: yes Hyperstimulation: no Assessment of Pelvic Adequacy: adequate Informed Consent: yes Attending Concurs yes * Olga Lidia Hudson - 03/04/2010 0736 EDT Resident PGY1 Progress Note Rh + / RI Subjective: Tolerating diet, voiding, ambulating. Pain well controlled. Lochia moderate. without difficulty. + flatus/ denies bowel movement. No SOB, chest pain, nausea or calf tenderness. Objective: VS: BP 108/64 Pulse 70 Temp(Src) 36.8 ??C (98.2 ??F) (Temporal) Resp 16 Tm 99.7 Gen: laying in bed with baby, no acute distress, comfortable Lungs: Clear to auscultation in all valenzuela CV: RRR, S1 S2 normal ABD: Soft, appropriately tender, +BS, fundus soft, 3 cm below and left of umbilicus. Extrem: mild swelling in bilateral lower extremities Assessment & Plan: 29 y.o. female post day 1 s/p 40+0/7 weeks course complicated by premature rupture of membranes. 1. Routine post care, nothing per vagina for 6 wks 2. Encourage ambulation, PO intake 3. Pain Management--con't current medication regimen 4. Bowel management--recommend stool softeners to minimize need to strain 5. Breast feeding - with no complications. 6. depression--discussed with patient, understands signs/symptoms 7. Contraception - Will defer decision making at this time Dispo. Likely tomorrow 03/05/2010. Mariya Culver MD PGY-1 Pager [phone] 03/04/2010 7:36 Attending MD addendum: I saw and examined the patient. I discussed the plan with the resident and agree with resident's exam and assessment and plan as documented above. * Valorie Chua RN - 03/03/2010 0826 EDT Pt rodriguez been able to void, stable[facility] * Kateryna No - 03/03/2010 0648 EDT Transfer Note Patient transferred to [facility]. She is: ?? Tolerating a regular diet ?? has not voided denies urge. ?? Fundus is firm and at U/-1 ?? The perineum is swollen ?? Does have an ice pack on ?? Nipples are everted ?? Baby was skin to skin ?? Did breastfed in the first hour. ?? Does have swelling slight non-pitting edema. ?? Does have an IV ?? is not safe to ambulate independently ?? did not fill out preadmission questionnaire Kateryna No RN 03/03/2010 6:49 * Kateryna No - 03/03/2010 0516 EDT placenta * Kateryna No - 03/03/2010 0424 EDT Pt. Pushing * Kateryna No - 03/03/2010 0402 EDT Pt. To bed. SVE per AT MD. * Kateryna No - 03/03/2010 0348 EDT AT MD to bedside * Kateryna No - 03/03/2010 0323 EDT Pt. To BR to void and then into tub. * Kateryna No - 03/03/2010 0310 EDT AT MD to bedside. * Kateryna No - 03/03/2010 0300 EDT ED MD to bedside. * Maris Castro - 03/03/2010 0230 EDT Resident PGY2 Labor Progress Note Maternal Name: Yolette House :1980 Rh + / RI / GBS negative CC: Labor / Rupture of membranes Subjective: Feeling increased discomfort with contractions - breathing through Objective: VS: BP 116/78 Pulse 87 Temp(Src) 37.3 ??C (99.1 ??F) (Tympanic) Resp 20 General: Breathing through contractions FHT: Baseline HR 130, moderate variability, + accels, no decels [place]: Contractions 2 - 4 min SVE: deferred Pitocin at 7 oliver-units/ml Assessment: She is a 29 y.o. @41w3d who initially presented with Rupture of Membranes and Laboring now 27 hours after SROM now augmentation of labor with pitocin. Category1 heart tracing, reassuring assessment. Plan: Continue augmentation. Recheck after 2 hour to assure progress. Continous monitoring. GBS negative: antibiotic prophylaxis is not indicated . Rh +: cord blood not indicated at delivery for Rh testing. Continue labor support. Signed, Maris Castro MD Web Content Specialist, PGY2 03/03/2010 2:31 * Kateryna No - 03/03/2010 0228 EDT Pt. Up from BR. AT MD to bedside * Kateryna No - 03/03/2010 0207 EDT Pt. Up to void * Kateryna No - 03/03/2010 0159 EDT 02 off * Kateryna No - 03/03/2010 0129 EDT AT MD to bedside. * Kateryna No - 03/03/2010 0125 EDT Amira HALL notified of fetaltachycardia. * Kateryna No - 03/03/2010 0114 EDT Pt. To L lateral. Fluid bolus. 02 on 10L via mask. * Kateryna No - 03/03/2010 0106 EDT Pt. Up to BR, BM and void. * Kateryna No - 03/02/2010 2338 EDT AT MD to bedside * Kateryna No - 03/02/2010 2314 EDT Pt. To R lateral. C/O knee pain and states has had knee issues before. Ice to knee. ED MD notified. * Kateryna No - 03/02/2010 2251 EDT ED MD and AT MD notified of pt. HR. * Kateryna oN - 03/02/2010 2220 EDT Readjusting EFM. * Kateryna No - 03/02/2010 2204 EDT Reajusting EFM * Kateryna No - 03/02/2010 2159 EDT AT MD to bedside * Kateryna No - 03/02/2010 2118 EDT Pt. Out of tub. To birthingball. * Nesha Fallon, RN - 03/02/20102050 EDT Pt into tub. Laboring well. FHT's accels. UC's q 1.5-3 min apart. * Mariya Culver MD - 03/02/20101852 EDT Labor & Delivery Resident Progress Note Rh Negative / Rubella immune / GBS Negative 29 y/o 1 para 0000 at 41+2/7 weeks gestation. Subjective: Ms. House is doing well, feels contractions every 3minutes, SROM at 0000 today 03/02/2010. No complaints, currently walking around room. Denies vaginal bleeding or pain. Objective: Physical Exam: BP 138/87 Pulse 69 Temp(Src) 37 ??C (98.6 ??F) (Tympanic) Resp 18 General: Patient is laying in bed in no acute distress, bedside SVE: deferred, last by Ms. Collier at 06:35AM 03/02/2010: 1-2cm/70%/-2 [place]: q2-3 minutes FHT: Baseline 130s, Moderate variability, + accels, no decels Assessment & Plan by Problems: Impression: Yolette House is a 29 y.o. 1 para 0000 at 41+2/7 weeks gestation here today for , currently with induction of labor.. Labor Management: Induction of labor with pitocin started at 3pm. -no distress -will cont. To monitor and check [id number] -pitocin set at 5 Assessment: Currently category 1 with reassuring assessment. -cont monitoring Pain Management: well controlled -acetaminophen and ibuprophen PRN -currently denies anesthesia consult RHneg/GBSneg/ -Cord blood indicated at delivery for Rh testing. Patient & Plan discussed with Dr. Parada. Mariya Culver MD PGY-1 Pager [phone] 03/02/2010 18:54 * Nesha Fallon, RN - 03/02/2010 1716 EDT Pt moved to rm 2, onto birthing ball * Nesha Fallon, RN - 03/02/2010 1619 EDT Pt feeling more uc's. pit at 3mu/min. FHT's reactive. Plan to move to rm 2 when available. Pt plansnatural deliv. * Gloria Shahid RN - 03/02/2010 1359 EDT Pt. Sitting up eating lunch, states ctrx may be getting alittle stronger * Bobby Wylie - 03/02/2010 1253 EDT Medical Student Labor and Delivery Progress Note GBS-/RH+/RI Subjective: Yolette House is a 29 y.o. at 41w2d presented with SROM. Patient doing well. Feeling contractions every 15 minutes. Objective: Physical Exam: BP 122/80 Pulse 80 Temp(Src) 36 ??C (96.8 ??F) (Tympanic) Resp 16 General: appears well, NAD SVE: deferred (last exam /-1 @ 1100) FHT: baseline 130, mod variability, +accels, -decels [place]: contractions every 3-15 minutes irregular Assessment & Plan: Yolette House is a 29 y.o. at 41w2d who is RH+ GBS- in active labor s/p SROM. Category 1 FHTs. Reassuring tracing. 1. Labor: active phase 2. FHT: category 1, reassuring, will continue intermittent monitoring. 3. Pain: well controlled 4. GBS-: PCN not indicated 5. Rh+: cord blood testing not indicated. 6. Anticipate Bobby Dejan MSIII * Mariya Culver MD - 03/02/2010 1045 EDT Labor & Delivery Resident Progress Note Rh Negative / Rubella immune / GBS Negative 29 y/o 1 para 0000 at 41+2/7 weeks gestation. Subjective: Ms. House is doing well, feels contractions every 15minutes, SROM at 0000 today 03/02/2010. No complaints, resting this morning after admission. Denies vaginal bleeding or pain. Objective: Physical Exam: BP 124/84 Pulse 78 Temp(Src) 36 ??C (96.8 ??F) (Tympanic) Resp 16 General: Patient is laying in bed in no acute distress, bedside SVE: deferred, last by Ms. Collier at 06:35AM 03/02/2010: 1-2cm/70%/-2 [place]: q3 minutes FHT: Baseline 140s, Moderate variability, + accels, no decels Assessment & Plan by Problems: Impression: Yolette House is a 29 y.o. 1 para 0000 at 41+2/7 weeks gestation here today for , currently in early labor. Labor Management: Patient in early labor. -no distress -will cont. To monitor and check [id number] Assessment: Currently category 1 with reassuring assessment. -cont monitoring Pain Management: well controlled -acetaminophen and ibuprophen PRN -currently denies anesthesia consult RHneg/GBSneg/ -Cord blood indicated at delivery for Rh testing. Patient & Plan discussed with Dr. Parada. Mariya Culver MD PGY-1 Pager [phone] 03/02/2010 11:41 * Luo Wallace, RN - 03/02/[address] Culver in to see pt * Lou Wallace, RN - 03/02/2010 1031 EDT Mild LE/UE edema * Lou Wallace RN - 03/02/2010 1028 EDT Pt planning to shower; ambulate * Lou Wallace RN - 03/02/2010 1025 EDT D: Increased bp 142/98 with machine; 124/ 84 with manual cuff; semifowlers; no co rodriguez; visual changes; MD notified; A: resting on left side R; continue with manual cuff s/s of rising bp. Notify MD * Lou Wallace RN - 03/02/2010 0909 EDT Care resumed by Meghann Wallace RN; pt awake; Dr. Parada in to see pt; reg diet; pitocin at noon if appropriate for labor pattern. Pt informed and all questions answered at this time * Savana Cedeno RN - 03/02/2010 0843 EDT 0815 K Collier on unit, did not disturb pt as is sleeping. 0830 Yolette still sleeping per . 0845 Report to Lou Wallace RN * Savana Cedeno RN - 03/02/2010 0839 EDT 0800 Pt resting eyes closed, not disturbed. * Savana Cedeno RN - 03/02/2010 0800 EDT Allowed to sleep, not disturbed for now. * Savana Cedeno RN - 03/02/2010 0749 EDT 0715 Report taken and care assumed, Yolette resting in bed, positioned with extra pillows as she would like to try to sleep, when asked if she could sleep through these contractions, she responded, probably. FH strip on for 5 minutes, showing baseline of 135 with moderate variability, no accelerations or decelerations. Vitals stable. * Rosalie Collier CNM - 03/02/2010 0720 EDT Pt c/o headache. Pt has history of headaches and no other symptoms of concern. A: H/a likely related to fatigue, chronic status for pt or hunger P: May have tylenol 650 mg now po Order placed * Kateryna No - 03/02/2010 0632 EDT Sterile spec done. Pt. Grossly ruptured positive nitrazine and pooling noted. * Kateryna No - 03/02/2010 0627 EDT Pt. Up to void. * Kateryna No - 03/02/2010 0611 EDT Sophia WITT to bedside. * Kateryna No - 03/02/2010 0603 EDT EFM on and explained. * Kateryna No. - 03/02/2010 0555 EDT Pt. ambulated to L&D here c/o SROM at 0000 clear fluid, is having 3-4/10 pain in lower front uterus, denies bleeding, +FM. Pt. void and then changing. * Inpatient, Physician - 03/02/2010 0000 EDT documented in this encounter H&P Notes * Rosalie Collier, AL - 03/02/2010 0648 EDT Pt comes in to L& D this morning with c/o rupture of membranes over night ~ 0000 of clear Amniotic Fluid and now onset of some irregular contractions and back pains. +FM overnight. Pt did call(0200am) but in light of clear fluid, distance from hospital (~ [address] and +FM; pt was permitted to rest @ home until AM or labor onset. Pt reports that her cervix was long and AT could not re ach vertex(less than 1 cm) yesterday in clinic. Pt was offered anesthesia consultation but declined I am not planning on THAT. Pt & I discussed this as just information not an inclination to have anesthesia but pt did decline. Pt declines any new changes or symptoms over night. Feeling generally well. Pt long time partner is with her today. 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 . Maternal Name: Yolette House : 1980 29 y/o 1 para 0000 at 41+2 weeks gestation. [place] LIBIA: 02/23/2010 LIBIA Basis: LMP Confirmed by Ultrasound PAST HISTORY: Disorders diagnosed prior to current Medical Comments: H/o of migraines - take excedrin Migraine Blackduck Teeth - 1997 Gynecological Abnormal PAP Smear: [...] Done; Cystic Fibrosis Carrier Screening: Neg Surveillance: Ultrasound; NST House Staff/CNM Signature: Rosalie Collier 03/02/2010 @ 0648 O: LMP Vitals Item Reading ??? BP 127/78 ??? Pulse 79 ??? Temp 35.7 ??C (96.3 ??F) ??? Temp Src Tympanic ??? Resp 20 SSE - performed @ 0630 clear pool of AF noted-obvious amniotic fluid, with vernix in the fluid. + nitrazine paper. Ve performed = 1-2/70%/-2 vertex with sutures felt. Unable to determine position. Estimated wt=7 # 7oz heart Tracing BL 140's moderate variability, no decels, + Accels to 160's CAT 1 tracing A: 29 yo @ 41+2 weeks with PROM and now onset of contractions, early labor Pt in no distress, coping well TIA GBS negative P: Admit to L&D Routine monitoring Declines Anes consultation Labor support & hydrotherapy prn Aniticpate labor progress and today Attending MD addendum: I saw and examined the patient. I discussed the plan with the resident and agree with resident's exam and assessment and plan as documented above. 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 . Maternal Name: Yolette House : 1980 [age] y/o 1 para 0000 at 40+0/7 weeks gestation. [place]. LABOR INFORMATION Labor Onset: Spontaneous; Augmentation: Oxytocin GBS Status: Negative; GBS Prophylaxis: None Labor Analgesia: None Labor & Delivery Medications: None VTX Continuous External FHRM; Abnormal FHR Patterns: Intermittent Moderate Variables Amniotic Fluid Color: Clear; Duration Rupture of Membranes: 24-48 hours DELIVERY INFORMATION Spontaneous Vaginal Delivery Episiotomy: None; Lacerations: None EBL: 500-1000 Delivery Comments: 20-30 minute period of mild tachycardia with heart rate in 160-180 range Placenta: Delivery Method: Spontaneous; Configuration: Normal Labor and Delivery Complications: Premature Rupture of Membranes - Fetus 1 INFORMATION Weight: 3782 grams Sex: Female Delivery Date: 03/03/2010 Delivery Time: 0511 Apgars: 81, 95 Peds NOT Present Admitting Nursery: Normal [place] Nuchal Cord: x1; Placental Cord Insertion: Normal; Umbilical Cord Vessels: Three DELIVERY PERSONNEL Delivery Provider: Nesha Parada Primary Nurse: Kateryna No Service / Group: [facility] Resident 1: Maris Castro Provider: Nesha Parada Festus Staff/[facility] Signature: Maris Castro 03/03/2010 @ 0542 Attending Attestation: Attending Signature: Date: I was present for the entire delivery. documented in this encounter Consult Notes * Astrid Hutchinson RN - 03/07/2010 1709 EDT Tack Coverer Telephone Follow Up: Left message. Astrid Hutchinson RN, BSN, IBCLC * Astrid Hutchinson RN - 03/06/2010 1101 EDT Telephone Follow Up: Left Message. Astrid Hutchinson RN, BSN, IBCLC * Marciano Gambino RN - 03/05/2010 1011 EDT Initial Consult Reason for Consult: Registered Nurse requested for extra education re BF Subjective: Mom states that Bf is going fine now. Plans discharge today Date of : 03/03/2010 Time of Delivery: 515 Info: Baby female was the 3782 g (8 lb 5.4 oz) product of a 41 3/7 gestation born by spontaneous vaginal delivery. Apgars were 8/9. Living Children: 1 Complications: Labor medications taken were: None GBS: Mother was negative. Objective: Past History: primip Pertinent Medical History: has Migraines - takes Excedrin Migraine Mother's Current Medications: routine pp meds Anatomy: baby latched onto breast so not assessed Mother Anatomy: no abnormalities noted Current Weight: Weight : 3558 g (7 lb 13.5 oz), down 4 oz since yesterday Change from Weight: -6% Last 24 hr I+O: Breast feeding: Breast Feeding?: Yes Breast feeding occurrence: 1 (cluster feeding) Unmeasurable Output: Patient Unmeasurable Output in the past 24 hrs: Urine Occurrence Urine Description Stool Occurrence Stool Description 03/05/10 0929 1 Medium - - 03/05/10 0000 - - 1 - 08/26/10 1500 - - 1 Large 03/04/10 1200 1 Large - - BF x 9 /24 hrs c 2 voids and 2-3 stools per mom ( not all charted) Current Breast Feeding: Mom already had baby latched on left side when I came in, positioned very comfortably and baby mostsucking non nutritive at that point, tho she'd been on for a while. Showed mom how to do breast compression and baby did swallow more with that. Reinforced nl feeding frequency, night and cluster feeding pattern,preventing/rx engorgement. Showed how to use BF log, discussed community resources - she lives in [facility] ( hospital there is [facility] certified) so enc her to call pedi or hospital there if Bf support neededonce home. Assessment: Mom and baby BF well so far Plan: Cont offering breast c cues , at least 8- 12 x/24 hrs We'll TC 03/06 Handouts given: Breast Feeding log, community resources with our phone number Time spent: 15 mins Marciano Gambino RN 03/05/2010 10:11 documented in this encounter Miscellaneous Notes * Plan of Care - Jennifer Gardner - 03/05/2010 0740 EDT Post- Shift Note Maternal: Admit Date: 03/02/2010 Hospital Day: LOS: 3 days Date of Delivery: Information for the patient's : [facility] [[id number]] 03/03/2010 Time of Delivery: Information for the patient's : [facility] [[id number]] 0516 Type of Delivery: normal spontaneous vaginal delivery Rhogam Administration: Not needed Gestation (weeks): Information for the patient's : [facility] [[id number]] 41 09/13 Hepatitis B: Lab Results Component Value Date HEPBSAG Value: Negative Reference Range: Negative 08/05/2009 Hepatitis C: Lab Results Component Value Date HEPCAB Neg 09/11/2005 Rubella: Protected Anesthesia/Duramorph: None Episiotomy/Laceration:None Vital signs: Stable Patient Vital Signs in the past 8 hrs: BP Pulse Resp Temp 03/05/10 0225 138/86 mmHg 62 16 36.8 ??C (98.2 ??F) Post- check: WNL IV / SL: None Liu/Void: Patient up and voiding Pain Medications: Given this shift - see MAR receiving oral suspensions Feeding: breast Feeding assistance: Independent Special Social Circumstances: Supportive family Discharge Education:Education initiated Certificate: Completed Comments: Routine PP care. Breast feeding well, independently. Drinking plenty. Data: Action: Response: Jennifer Gardner RN 03/05/2010 7:40 * Plan of Care - Tiffany Mann RN - 03/04/2010 1704 EDT Post- Shift Note Maternal: Admit Date: 03/02/2010 Hospital Day: LOS: 2 days Date of Delivery: Information for the patient's : [facility] [[id number]] 03/03/2010 Time of Delivery: Information for the patient's : [facility] [[id number]] 0516 Type of Delivery: normal spontaneous vaginal delivery Rhogam Administration: Not needed Gestation (weeks): Information for the patient's : [facility] [[id number]] 41 09/13 Hepatitis B: Lab Results Component Value Date HEPBSAG Value: Negative Reference Range: Negative 08/05/2009 Hepatitis C: Lab Results Component Value Date HEPCAB Neg 09/11/2005 Rubella: Protected Anesthesia/Duramorph: None Episiotomy/Laceration:None Vital signs: Stable Patient Vital Signs in the past 8 hrs: BP Pulse Resp Temp SpO2 03/04/10 1525 135/78 mmHg 79 16 36.5 ??C (97.7 ??F) 96 % Post- check: WNL IV / SL: None Liu/Void: Patient up and voiding Pain Medications: Given this shift - see MAR receiving oral suspensions Feeding: breast Feeding assistance: Independent Special Social Circumstances: Supportive family Discharge Education:Education initiated Certificate: Completed Comments: Routine PP care. Breast feeding well, independently. Drinking plenty. Showered, linens changed. D/c likely tomorrow. Data: Action: Response: Tiffany Mann RN 03/04/2010 17:04 * Plan of Care - Tiffany Mann RN - 03/04/2010 1700 EDT Post- Shift Note Maternal: Admit Date: 03/02/2010 Hospital Day: LOS: 2 days Date of Delivery: Information for the patient's : [facility] [[id number]] 03/03/2010 Time of Delivery: Information for the patient's : [facility] [[id number]] 0516 Type of Delivery: normal spontaneous vaginal delivery Rhogam Administration: Not needed Gestation (weeks): Information for the patient's : [facility] [[id number]] 41 09/13 Hepatitis B: Lab Results Component Value Date HEPBSAG Value: Negative Reference Range: Negative 08/05/2009 Hepatitis C: Lab Results Component Value Date HEPCAB Neg 09/11/2005 Rubella: Protected Anesthesia/Duramorph: None Episiotomy/Laceration:None Vital signs: Stable Patient Vital Signs in the past 8 hrs: BP Pulse Resp Temp SpO2 03/04/10 1525 135/78 mmHg 79 16 36.5 ??C (97.7 ??F) 96 % Post- check: WNL IV / SL: None Liu/Void: Patient up and voiding Pain Medications: Given this shift - see MAR receiving oral suspensions Feeding: breast Feeding assistance: Independent Special Social Circumstances: Supportive family Discharge Education:Education initiated Certificate: Completed Comments: Routine PP care. Breast feeding well, independently. Drinking plenty. D/c likely tomorrow. Data: Action: Response: Tiffany Mann RN 03/04/2010 17:00 * Plan of Care - Lillian Castillo RN - 03/04/2010 0529 EDT Post- Shift Note Maternal: Admit Date: 03/02/2010 Hospital Day: LOS: 2 days Date of Delivery: Information for the patient's : [facility] [[id number]] 03/03/2010 Time of Delivery: Information for the patient's : [facility] [[id number]] 0516 Type of Delivery: normal spontaneous vaginal delivery Rhogam Administration: Not needed Gestation (weeks): Information for the patient's : [facility] [[id number]] 41 09/13 Hepatitis B: Lab Results Component Value Date HEPBSAG Value: Negative Reference Range: Negative 08/05/2009 Hepatitis C: Lab Results Component Value Date HEPCAB Neg 09/11/2005 Rubella: Protected Anesthesia/Duramorph: None Episiotomy/Laceration:None Vital signs: Stable Patient Vital Signs in the past 8 hrs: BP Pulse Resp Temp 03/04/10 0010 108/64 mmHg 70 16 36.8 ??C (98.2 ??F) Post- check: WNL IV / SL: Saline lock removed - catheter intact Liu/Void: Patient up and voiding Pain Medications: Given this shift - see MAR Feeding: breast Feeding assistance: Occasional support baby slightly gaggy Special Social Circumstances: Supportive family Discharge Education:Education initiated Certificate: Not completed Comments: Routine PP care. Pt up to void x2, needs to be reminded to void q2- 3hrs. Encouraged her to drink more H2O. Doing well with breast feeding, needs some support with positioning Data: Action: Response: LILLIAN CASTILLO RN 03/04/2010 5:28 * Plan of Care - Lillian Castillo RN - 03/04/2010 0243 EDT Problem: VAGINAL DELIVERY - RECOVERY AND POST Goal: Fundus Firm At Midline Data:pt s/p vaginal delivery Action: Fundal assessment Response: fundus firm and down 2. Continue to monitor. * Plan of Care - Carmelita Shepard RN - 03/03/2010 2220 EDT Post- Shift Note Maternal: Admit Date: 03/02/2010 Hospital Day: LOS: 1 day Date of Delivery: Information for the patient's : [facility] [[id number]] 03/03/2010 Time of Delivery: Information for the patient's : [facility] [[id number]] 0516 Type of Delivery: normal spontaneous vaginal delivery Rhogam Administration: Not needed Gestation (weeks): Information for the patient's : [facility] [[id number]] 41 09/13 Hepatitis B: Lab Results Component Value Date HEPBSAG Value: Negative Reference Range: Negative 08/05/2009 Hepatitis C: Lab Results Component Value Date HEPCAB Neg 09/11/2005 Rubella: Protected Anesthesia/Duramorph: None Episiotomy/Laceration:None Vital signs: Stable Patient Vital Signs in the past 8 hrs: BP Pulse Resp Temp 03/03/10 1545 113/80 mmHg 68 18 37.6 ??C (99.7 ??F) Post- check: WNL IV / SL: Saline lock removed - catheter intact Liu/Void: Patient up and voiding Pain Medications: Given this shift - see MAR Feeding: breast Feeding assistance: Full assist baby slightly gaggy Special Social Circumstances: Supportive family Discharge Education:Education initiated Certificate: Not completed Comments: Routine PP care. Pt up to void x2, needs to be reminded to void q2- 3hrs. Encouraged her to drink more H2O. Data: Action: Response: Carmelita Shepard RN 03/03/2010 22:20 * Plan of Care - Tiffany Mann RN - 03/03/2010 5658 EDT Post- Shift Note Maternal: Admit Date: 03/02/2010 Hospital Day: LOS: 1 day Date of Delivery: Information for the patient's : [facility] [[id number]] 03/03/2010 Time of Delivery: Information for the patient's : [facility] [[id number]] 0516 Type of Delivery: normal spontaneous vaginal delivery Rhogam Administration: Not needed Gestation (weeks): Information for the patient's : [facility] [[id number]] 41 09/13 Hepatitis B: Lab Results Component Value Date HEPBSAG Value: Negative Reference Range: Negative 08/05/2009 Hepatitis C: Lab Results Component Value Date HEPCAB Neg 09/11/2005 Rubella: Protected Anesthesia/Duramorph: None Episiotomy/Laceration:None Vital signs: Stable Patient Vital Signs in the past 8 hrs: BP Pulse Resp Temp 03/03/10 0857 113/73 mmHg 71 18 37.5 ??C (99.5 ??F) 03/03/10 0824 129/64 mmHg 75 18 36.7 ??C (98.1 ??F) 03/03/10 0739 125/69 mmHg - 18 - 03/03/10 0709 136/75 mmHg 85 18 37.2 ??C (99 ??F) Post- check: WNL IV / SL: IV to saline lock Liu/Void: Patient up and voiding Pain Medications: Given this shift - see MAR Feeding: breast Feeding assistance: Full assist baby not interested [facility] breast [facility], feed on l and d x2 Special Social Circumstances: Supportive family Discharge Education:Education initiated Certificate: Not completed Comments: Routine PP care. Pt up to void x2, needs to be reminded to void q2- 3hrs. Encouraged her to drink more H2O. Ice on for sore perineum. Data: Action: Response: Tiffany Mann RN 03/03/2010 14:58 * Plan of Care - Nesha Fallon, KRISTEN - 03/02/2010 1725 EDT Problem: UTERUS/PLACENTA PERFUSION Goal: FHR Pattern Intervention: Assess the FHR pattern Assess rate, rhythm and quality of FHR FHT's reactive, mo variability. Cont monitoring with pitocin. * Scanned Note-Null - Inpatient, Physician - 03/02/2010 0000 EDT * Scanned Note-Null - Inpatient, Physician - 03/02/2010 0000 EDT * Scanned Note-Null - Inpatient, Physician - 03/02/2010 0000 EDT documented in this encounter Plan of Treatment Upcoming Encounters Date Type Department Care Team (Late st Contact Info) Description 01/31/2024 10:15 EDT Telemedicine [facility] Neurology - [address] [place], [place] [id number] Med Maldonado MD 1 [facility], Level [address] [place] [address] 08/31/2024 9:40 EST Appointment Naz Perez [address] [address] documented as of this encounter Procedures Procedure Name Priority Date/Time Associated Diagnosis Comments COMPLETE BLOOD COUNT Routine 03/02/2010 11:08 EDT TYPE AND SCREEN Routine 03/02/2010 11:08 EDT documented in this encounter Results * HEMAGRAM (03/02/2010 11:08 EDT) WBC 11.90 4.0 - 12.4 K/cmm [facility] RBC 4.03 3.86 - 5.04 M/cmm [facility] Hemoglobin 12.4 11.6 - 15.2 gm/dl [facility] HCT 35.3 34.9 - 44.4 % [facility] MCV 88 81 - 98 fl [facility] MCH 30.7 26.7 - 33.3 pg [facility] MCHC 35.0 32.1 - 35.9 gm/dl [facility] PLT 190 141 - 320 K/cmm [facility] RDW-CV 13.7 11.7 - 14.6 % [facility] Blood specimen (specimen) 03/02/2010 11:08 EDT 03/02/2010 15:22 EDT Mariya Culver MD HEMATOLOGY & PF4 ORD ERABLES [facility] [address] [place] [address] * TYPE AND SCREEN (03/02/2010 11:08 EDT) ABO A [facility] Rh Factor Positive [facility] Antibody Screen Negative [facility] Comment:SPECIMEN WILL AT 23:59 ON Blood specimen (specimen) 03/02/2010 11:08 EDT 03/02/2010 11:08 EDT Mariya Culver MD BLOOD BANK TESTS Performing Organization Address [facility] Co de Phone Number [facility] [address] [place] [address] documented in this encounter Visit Diagnoses Not on filedocumented in this encounter Administered Medications Inactive Administered Medications - up to 3 most recent administrations Medication Order MAR Action Action Date Dose Rate Site acetaminophen (TYLENOL) solution 650 mg 650 mg, oral, EVERY 6 HOURS PRN, Starting on Mon03/03/10 at 2327, Until Mon03/05/10 at 1613, Pain, Routine Given 03/05/2010 9:47 EDT 650 mg Given 03/05/2010 3:30 EDT 650 mg Given 03/04/2010 21:30 EDT 650 mg acetaminophen (TYLENOL) tablet 325-650 mg 325-650 mg, oral, EVERY 4 HOURS PRN, Starting on Mon03/03/10 at 0850, Until Mon03/03/10 at 2326, Pain, Routine Given 03/03/2010 22:17 EDT 650 mg Given 03/03/2010 18:00 EDT 650 mg Given 03/03/2010 14:30 EDT 650 mg acetaminophen (TYLENOL) tablet 650 mg 650 mg, oral, EVERY 4 HOURS PRN, Starting on Tu03/02/10 at 2318, Until Mon03/03/10 at 0850, Pain, Routine Given 03/03/2010 5:30 EDT 650 mg Given 03/02/2010 23:49 EDT 650 mg docusate sodium (COLACE) capsule 100 mg 100 mg, oral, 2 TIMES DAILY PRN, Starting on Mon03/03/10 at 0850, Until Mon03/05/10 at 1613, Constipation, Routine Given 03/05/2010 9:47 EDT 100 mg Given 03/04/2010 15:30 EDT 100 mg Given 03/03/2010 22:18 EDT 100 mg ibuprofen (ADVIL;MOTRIN) suspension 400 mg 400 mg, oral, EVERY 6 HOURS PRN, Starting on Mon03/03/10 at 2327, Until Mon03/05/10 at 1613, Pain, Routine Given 03/05/2010 9:48 EDT 400 mg Given 03/05/2010 3:30 EDT 400 mg Given 03/04/2010 21:30 EDT 400 mg ibuprofen (MOTRIN) tablet 400 mg 400 mg, oral, PRN, Starting on Mon03/02/10 at 0734, Until Mon03/03/10 at 0850, Pain, , Routine Given 03/03/2010 5:30 EDT 400 mg ibuprofen (MOTRIN) tablet 400 mg 400 mg, oral, EVERY 4 HOURS PRN, Starting on Mon03/03/10 at 0850, Until Mon03/03/10 at 2326, Pain, Routine Given 03/03/2010 22:18 EDT 400 mg Given 03/03/2010 18:00 EDT 400 mg Given 03/03/2010 14:30 EDT 400 mg lactated ringers (LR) infusion at 75-150 mL/hr, intravenous, PRN, Starting on Mon03/02/10 at 2115, Until Mon03/03/10 at 0850, Routine Given 03/03/2010 1:30 EDT 150 mL/hr 150 mL/hr Given 03/02/2010 22:45 EDT 150 mL/hr 150 mL/hr Given 03/02/2010 19:15 EDT 150 mL/hr 150 mL/hr Lansinoh HPA Lanolin topical (top), PRN, Starting on Mon03/03/10 at 0850, Until Mon03/05/10 at 1613, Other Given 03/04/2010 17:49 EDT oxytocin in lactated ringers 30 units/500 ml 1-20 oliver-units/min (rounded to 1-20 mL/hr), intravenous, CONTINUOUS, Starting on Mon03/02/10 at 1130, Until Mon03/03/10 at 0850, Routine Rate Change 03/03/2010 6:10 EDT 135 mL/hr 135 mL/hr Rate Change 03/03/2010 5:10 EDT 200 mL/hr 200 mL/hr Rate Change 03/03/2010 3:00 EDT 9 oliver-units/min 9 mL/hr documented in this encounter Historical Medications * This list may reflect changes made after this encounter. Medication Sig Dispensed Refills Start Date End Date Lansinoh HPA Lanolin Apply topically as needed for Other. 03/05/2010 09/27/2012 ibuprofen (ADVIL;MOTRIN) 100 mg/5 mL suspension Take 20 mL by mouth every 6 hours as needed for Pain. 03/05/2010 01/09/2014 docusate sodium (COLACE) 100 mg capsule Take 1 Cap by mouth 2 times daily as needed for Constipation. 03/05/2010 09/27/2012 acetaminophen (TYLENOL) 650 mg/20.3 mL solution Take 20.3 mL by mouth every 6 hours as needed for Pain. 03/05/2010 01/02/2014 multivitamin (FLINTSTONES COMPLETE) chewable tablet Take 1 Tab by mouth daily. 01/09/2014 added in this encounter Active and Recently Administered Medications Times are shown in EDT. Continuous Medication Order 03/03/2010 03/04/2010 03/05/2010 oxytocin in lactated ringers 30 units/500 ml (CANCELED) 1-20 oliver-units/min (rounded to 1-20 mL/hr), intravenous, CONTINUOUS, Starting on Mon03/02/10 at 1130, Until Mon03/03/10 at 0850, Routine 0025 (Rate Change - Provider: Kateryna No)0100 (Rate Change - Provider: Kateryna No)0133 (Rate Change - Provider: Kateryna No)0300 (Rate Change - Provider: Kateryna No)0510 (Rate Change - Provider: Kateryna No - Comment: dose)0610 (Rate Change - Provider: Kateryna No)0710 (Completed - Provider: Kateryna No) PRN Medication Order 03/03/2010 03/04/2010 03/05/2010 acetaminophen (TYLENOL) solution 650 mg 650 mg, oral, EVERY 6 HOURS PRN, Starting on Mon03/03/10 at 2327, Until Mon03/05/10 at 1613, Pain, Routine 0210 (Given - Provider: Lillian Castillo RN)0850 (Given - Provider: Tiffany Mann RN)1530 (Given - Provider: Tiffany Mann RN)2130 (Given - Provider: Lillian Castillo RN) 0330 (Given - Provider: Jennifer Gardner)0947 (Given - Provider: Tiffany Mann RN) acetaminophen (TYLENOL) tablet 325-650 mg (CANCELED) 325-650 mg, oral, EVERY 4 HOURS PRN, Starting on Mon03/03/10 at 0850, Until Mon03/03/10 at 2326, Pain, Routine 1025 (Given - Provider: Tiffany Mann RN)1430 (Given - Provider: Tiffany Mann RN)1800 (Given - Provider: Carmelita Shepard RN)2217 (Given - Provider: Carmelita Shepard RN) acetaminophen (TYLENOL) tablet 650 mg (CANCELED) 650 mg, oral, EVERY 4 HOURS PRN, Starting on Mon03/02/10 at 2318, Until Mon03/03/10 at 0850, Pain, Routine 0530 (Given - Provider: Kateryna No) docusate sodium (COLACE) capsule 100 mg 100 mg, oral, 2 TIMES DAILY PRN, Starting on Mon03/03/10 at 0850, Until Mon03/05/10 at 1613, Constipation, Routine 2218 (Given - Provider: Carmelita Shepard RN) 1530 (Given - Provider: Tiffany Mann RN) 0947 (Given - Provider: Tiffany Mann RN) ibuprofen (ADVIL;MOTRIN) suspension 400 mg 400 mg, oral, EVERY 6 HOURS PRN, Starting on Mon03/03/10 at 2327, Until Mon03/05/10 at 1613, Pain, Routine 0210 (Given - Provider: Lillian Castillo RN)0850 (Given - Provider: Tiffany Mann RN)1530 (Given - Provider: Tiffany Mann RN)2130 (Given - Provider: Lillian Castillo RN) 0330 (Given - Provider: Jennifer Gardner)0948 (Given - Provider: Tiffany Mann RN) ibuprofen (MOTRIN) tablet 400 mg (CANCELED) 400 mg, oral, PRN, Starting on Mon03/02/10 at 0734, Until Mon03/03/10 at 0850, Pain, , Routine 0530 (Given - Provider: Kateryna No) ibuprofen (MOTRIN) tablet 400 mg (CANCELED) 400 mg, oral, EVERY 4 HOURS PRN, Starting on Mon03/03/10 at 0850, Until Mon03/03/10 at 2326, Pain, Routine 1025 (Given - Provider: Tiffany Mann RN)1430 (Given - Provider: Tiffany Mann RN)1800 (Given - Provider: Carmelita Shepard, KRISTEN)2218 (Given - Provider: Carmelita Shepard RN) lactated ringers (LR) infusion (CANCELED) at 75-150 mL/hr, intravenous, PRN, Starting on Mon03/02/10 at 2115, Until Mon03/03/10 at 0850, Routine 0130 (Given - Provider: Kateryna No) Lansinoh HPA Lanolin topical (top), PRN, Starting on Mon03/03/10 at 0850, Until Mon03/05/10 at 1613, Other 1749 (Given - Provider: Tiffany Mann RN) documented in this encounter Orders Medications Ordered That Alhaji ht Not Have Been Administered Count Last Ordered Date First Ordered Date calcium carbonate (TUMS) 500 mg per chewable tablet Chew 1-2 Tab 2 03/03/2010 03/02/2010 Multivitamin Vit-Ir on Fumarate-FA (STUARTNATAL) 27-1 mg tablet 1 Tab 2 03/03/201003/02 acetaminophen (TYLENOL) tablet 325-650 mg 1 03/02/2010 acetaminophen (TYLENOL) tablet 650 mg 1 carboprost (HEMABATE) intram uscular injection 250 mcg 1 03/02/2010 docusate sodium (COLACE) capsule 100 mg 1 0 03/02/2010 ibuprofen (MOTRIN) tablet 400 mg 1 03/02/20 10 lactated ringers (LR) 500 mL BOLUS 1 2009 Lansinoh HPA Lanolin 1 03/02/2010 methylergonovine (METHERGINE ) injection 200 mcg 1 03/02/2010 misoprostol (CYTOTEC) tablet 200 mcg 1 02/08 misoprostol (CYTOTEC) tablet 800 mcg 1 02/08 multivitamin (CENTRUM JR) ch ewable tablet 1 Tab 1 03/02/2010 oxytocin in lactated ringers 30 units/500 ml 2 03/02/2010 zolpidem (AMBIEN) tablet 5 mg 1 03/02/2010 Admission Count Last Ordered Date First Orde red Date NOTIFY PPS OF DISCHARGE COMPLETE 1 03/05/20 10 ADMIT TO INPATIENT 3 03/03/2010 0 PPS NOTIFICATION OF PATIENT ARRIVAL ON UNIT 1 03/03/2010 PPS NOTIFICATION OF SENDING PATIENT OFF THE UNIT 1 03/03/2010 ADMITTING CONDITION 2 03/02/2010 NOTIFY PPS OF ROOM CHANGE COMPLETE 2 2009 TEACHING SERVICE 2 03/02/2010 Discharge Count Last Ordered Date First Orde red Date DISCHARGE PATIENT 1 03/05/2010 Consult to Social Work Count Last Ordered Date First Ordered Date CONSULT SOCIAL WORK 1 03/04/2010 documented in this encounter 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
--- OUTSIDE RECORDS SUMMARY | 2024-01-26 12:55 | XMS_ITS | Encounter Summary ---
Author Organization [facility] Address [address] [place] [address] Care Team Providers Care Field Recorder Name Role Phone Bonita Saldana Primary Care Provider Unavailable Encounter Details Date Type Department Care Team (Late st Contact Info) Description 02/01/2013 Phlebotomy Only [facility] [address] [place] [address] Tensioning Machine Operator, Outpatient Idiopathic small fiber sensory neuropathy Social History Tobacco Use Types Packs/Day Years [...] Contact Info) Description 01/31/2024 10:15 EDT Telemedicine [facility] Neurology - S [address] [id number] Med Maldonado MD [address] [place] [address] Level 2 [place] [phone] 08/31/2024 9:40 EST Appointment Naz Perez [address] [address] documented as of this encounter Procedures Procedure Name Priority Date/Time Associated Diagnosis Comments CRYO PANEL, SERUM AND PLASMA Routine 02/01/2013 15:38 EDT Idiopathic small fiber sensory neuropathy SS-B (LA) ANTIBODY, IGG Routine 02/01/2013 15:38 EDT Idiopathic small fiber sensory neuropathy ZZHN SSA ANTIBODIES BY ALONSO Routine 02/01/2013 15:38 EDT Idiopathic small fiber sensory neuropathy HEPATITIS C AB W REFLEX TO HCV RNA BY PCR Routine 02/01/2013 15:38 EDT Idiopathic small fiber sensory neuropathy METHYLMALONIC ACID Routine 02/01/2013 15 :38 EDT Idiopathic small fiber sensory neuropathy DIFFERENTIAL Routine 02/01/2013 15:38 EDT COMPLETE BLOOD COUNT Routine 02/01/2013 15:38 EDT COMPLETE BLOOD COUNT AND DIFFERENTIAL Routine 02/01/2013 15:38 EDT Idiopathic small fiber sensory neuropathy RHEUMATOID FACTOR Routine 02/01/2013 15: 38 EDT Idiopathic small fiber sensory neuropathy SPEP WITH IMMUNOTYPING Routine 3 15:38 EDT Idiopathic small fiber sensory neuropathy ANTI NUCLEAR AB (JIE), IFA Routine 02/01/2013 15:38 EDT Idiopathic small fiber sensory neuropathy TSH Routine 02/01/2013 15:38 EDT Idiopathic small fiber sensory neuropathy T4 FREE Routine 02/01/2013 15:38 EDT Idiopathic small fiber sensory neuropathy HEMOGLOBIN A1C Routine 02/01/2013 15:38 EDT Idiopathic small fiber sensory neuropathy VITAMIN B12 Routine 02/01/2013 15:38 EDT Idiopathic small fiber sensory neuropathy COMPREHENSIVE METABOLIC PANEL (CMP) Routine 02/01/2013 15:38 EDT Idiopathic small fiber sensory neuropathy documented in this encounter Results * DIFFERENTIAL (02/01/2013 15:38 EDT) % Neutrophils 64.4 45.5 - 79.7 % [facility] % Lymphocytes 25.3 15.0 - 46.8 % [facility] % Monocytes 8.7 1.8 - 12.0 % [facility] % Eosinophils 1.0 0.6 - 6.9 % [facility] % Basophils 0.6 0.2 - 1.4 % [facility] ABS Neutrophils 5.73 2.20 - 8.85 K/cmm [facility] ABS Lymphs 2.25 1.09 - 3.30 K/cmm [facility] ABS Monocytes 0.77 0.1 - 0.8 K/cmm [facility] ABS Eosinophils 0.09 0.03 - 0.61 K/cmm [facility] ABS Basophils 0.05 0.01 - 0.11 K/cmm [facility] Type of Diff: Automated [facility] 02/01/2013 15:3 8 EDT 02/01/2013 15:52 EDT Elliott Ledezma MD HEMATOLOGY & PF4 ORDERABLES [facility] [address] [place] [address] * HEMAGRAM (02/01/2013 15:38 EDT) WBC 8.91 4.0 - 12.4 K/cmm [facility] RBC 4.53 3.86 - 5.04 M/cmm [facility] Hemoglobin 13.7 11.6 - 15.2 gm/dl [facility] HCT 38.9 34.9 - 44.4 % [facility] MCV 86 81 - 98 fl [facility] MCH 30.3 26.7 - 33.3 pg [facility] MCHC 35.3 32.1 - 35.9 gm/dl [facility] PLT 264 141 - 320 K/cmm [facility] RDW-CV 12.9 11.7 - 14.6 % [facility] 02/01/2013 15:3 8 EDT 02/01/2013 15:52 EDT Elliott Ledezma MD HEMATOLOGY & PF4 ORDERABLES Performing Organization Address City/[facility] Co de Phone Number [facility] [address] [place] [address] * METHYLMALONIC ACID (02/01/2013 15:38 EDT) Pathologist [facility] Methylmalonic Acid 0.16 <=0.40 nmol/mL [facility] Comment: Performed or Referred by: [facility] Labs: [facility], [address] [place] [address], Lab Dir: Tom Nolen III, MD Blood specimen (specimen) 02/01/2013 15:38 EDT 02/01/2013 15:52 EDT Elliott Ledezma MD CHEMISTRY & BLOOD GAS ORDERABLES Performing Organization Address [facility] Co de Phone Number [facility] [address] [place] [address] * VITAMIN B12 (02/01/2013 15:38 EDT) [facility] Vitamin B-12 544 211 - 911 pg/ml [facility] Blood specimen (specimen) 02/01/2013 15:38 EDT 02/01/2013 15:52 EDT Elliott Ledezma MD CHEMISTRY & BLOOD GAS ORDERABLES Performing Organization Address City/[facility] Co de Phone Number [facility] [address] [place] [address] * T4 FREE (02/01/2013 15:38 EDT) Free T4 1.2 0.8 - 1.8 ng/dL [facility] Blood specimen (specimen) 02/01/2013 15:38 EDT 02/01/2013 15:52 EDT Elliott Ledezma MD CHEMISTRY & BLOOD GAS ORDERABLES Performing Organization Address [facility] Co de Phone Number [facility] [address] [place] [address] * TSH (02/01/2013 15:38 EDT) Pathologist [facility] TSH 1.71 0.35 - 5.00 uIU/ml [facility] Blood specimen (specimen) 02/01/2013 15:38 EDT 02/01/2013 15:52 EDT Elliott Ledezma MD CHEMISTRY & BLOOD GAS ORDERABLES Performing Organization Address [facility] de Phone Number [facility] [address] [place] [address] * HEMOGLOBIN A1C (02/01/2013 15:38 EDT) Pathologist [facility] Hemoglobin A1C 4.9 % SD [facility] Comment: Shortened red blood cell survival will [...] adverse effects of treatment. Est Avg Glucose 94 mg/dl [facility] Comment: eAG represents the A1c result expressed as average glucose in mg/dl. Blood specimen (specimen) 02/01/2013 15:38 EDT 02/01/2013 15:52 EDT Elliott Ledezma MD CHEMISTRY & BLOOD GAS ORDERABLES Performing Organization Address [facility] Co de Phone Number [facility] [address] [place] [address] * CRYO PANEL, SERUM AND PLASMA (02/01/2013 15:38 EDT) Pathologist [facility] Cryoglobulin, Serum Negative Negative %ppt [facility] Comment: (Note) This test is negative at 24 hours. All samples are held and reviewed again at 7 days. If delayed precipitation occurs after 7 days, Immunofixation will be performed and an additional report will follow. Cryofibrinogen Negative Negative [facility] Comment: Performed or Referred by: [facility] Labs: [facility], [address] [facility], [place] [address], Lab Dir: Tom Nolen III, MD Blood specimen (specimen) 02/01/2013 15:38 EDT 02/01/2013 15:52 EDT Elliott Ledezma MD CHEMISTRY & BLOOD GAS ORDERABLES Performing Organization Address [facility] de Phone Number [facility] [address] [place] [address] * HEPATITIS C ANTIBODY (02/01/2013 15:38 EDT) Pathologist [facility] Hepatitis C Ab Negative [facility] Comment:Reference Range: Neg ative Blood specimen (specimen) 02/01/2013 15:38 EDT 02/01/2013 15:52 EDT Elilott Ledezma MD CHEMISTRY & BLOOD GAS ORDERABLES Performing Organization Address [facility] de Phone Number [facility] [address] [place] [address] * (ABNORMAL) COMPREHENSIVE METABOLIC PANEL (CMP) (02/01/2013 15:38 EDT) Pathologist [facility] Potassium 3.8 3.5 - 5.0 mEq/L [facility] Sodium 140 136 - 145 mEq/L [facility] Chloride 104 96 - 110 mEq/L [facility] CO2 24 24 - 32 mEq/L [facility] Total Alkaline Phosphatase 61 38 - 126 U/L [facility] Bilirubin, Total <0.5 0.2 - 1.3 mg/dl [facility] AST 21 15 - 46 U/L [facility] ALT 21 9 - 52 U/L [facility] Albumin 4.9 3.4 - 4.9 g/dl [facility] Total Protein 7.7 6.5 - 8.3 g/dl [facility] Creatinine 0.49(L) 0.52 - 1.04 mg/dl [facility] GFR, Calculated >60 >60 ml/min/1.7 3m2 [facility] BUN 19 10 - 26 mg/dl [facility] Calcium 10.0 8.5 - 10.5 mg/dl [facility] Calculated Calcium 9.5 8.5 - 10.5 mg/dl [facility] Glucose, Serum 105(H) 70 - 100 mg/dl [facility] Fasting? No [facility] Blood specimen (specimen) 02/01/2013 15:38 EDT 02/01/2013 15:52 EDT Elliott Ledezma MD CHEMISTRY & BLOOD GAS ORDERABLES Performing Organization Address [facility] Co de Phone Number [facility] [address] [place] [address] * SS-B/LA ANTIBODY, IGG, SERUM (02/01/2013 15:38 EDT) SS B/La Ab, IgG, S <0.2 <1.0 (Negative) [facility] Comment: Performed by: [facility] [place], [address], [place] [address], Premium Auditor: Yenifer Jacome, Ph.D. Blood specimen (specimen) 02/01/2013 15:38 EDT 02/01/2013 15:52 EDT Elliott Ledezma MD IMMUNOLOGY AND SE ROLOGY ORDERABLES Performing Organization Address City/[facility] Co de Phone Number [facility] [address] [place] [address] * SS-A/RO ANTIBODY, IGG, SERUM (02/01/2013 15:38 EDT) SS A/Ro Ab, IgG, S <0.2 <1.0 (Negative) U [facility] Comment: Performed by: [facility] [place], [address], [place] [address], Premium Auditor: Yenifer Jacome, Ph.D. Blood specimen (specimen) 02/01/2013 15:38 EDT 02/01/2013 15:52 EDT Elliott Ledezma MD IMMUNOLOGY AND SE ROLOGY ORDERABLES Performing Organization Address [facility] Phone Number [facility] [address] [place] [address] * RHEUMATOID FACTOR (02/01/2013 15:38 EDT) Pathologist [facility] Rheumatoid Factor <20 <20 IU/ml [facility] Blood specimen (specimen) 02/01/2013 15:38 EDT 02/01/2013 15:52 EDT Elliott Ledezma MD CHEMISTRY & BLOOD GAS ORDERABLES Performing Organization Address [facility] de Phone Number [facility] [address] [place] [address] * ANTI NUCLEAR ANTIBODY (02/01/2013 15:38 EDT) Pathologist [facility] Anti Nuclear Ab <40 0 - 40 Dils [facility] Blood specimen (specimen) 02/01/2013 15:38 EDT 02/01/2013 15:52 EDT Elliott Ledezma MD IMMUNOLOGY AND SE ROLOGY ORDERABLES Performing Organization Address [facility] Phone Number [facility] [address] [place] [address] * IMMUNOFIXATION/SPEP (02/01/2013 15:38 EDT) Total Protein 7.5 6.5 - 8.3 g/dl [facility] Albumin, SPEP 58.9 47.6 - 61.9 % [facility] Alpha-1 % 2.8 1.4 - 4.6 % [facility] Alpha 2, SPEP 7.7 7.3 - 13.9 % [facility] Beta, SPEP 16.7 10.9 - 19.1 % [facility] Gamma, SPEP 13.8 9.5 - 24.8 % [facility] Comments, SPEP No apparent monoclonal protein [facility] Comment: on serum electrophoresis. See Pathology Scanned Report in [facility]ISM. Immunofixation ,serum Interpretation : [facility] Comment: Negative for monoclonal immunoglobulins. Interpreted by: Vlad Tanner MD, PhD Reference Range: Negative for monoclonal immunoglobulins. 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
--- OUTSIDE RECORDS SUMMARY | 2024-01-26 12:55 | XMS_ITS | Encounter Summary ---
Author Organization [facility] Address [address] [place] [address] Care Team Providers Care Aligner Typewriter Name Role Phone Unknown, Provider Primary Care Provider Encounter Details Date Type Department Care Team (Latest Contact Info) Description 2011 14:55 EDT - 2011 14:56 EDT Hospital Encounter [facility] - [address] [address] Nesha Parada MD [address] [place] [phone] Discharge Disposition: Home or Self Care [...] Contact Info) Description 01/31/2024 10:15 EDT Telemedicine [facility] Neurology - S [place] [address] [place], [place] [id number] Med Maldonado MD [address] [place] [address], Level 2 [place] [phone] 08/31/2024 9:40 EST Appointment Naz Perez [address] [address] documented as of this encounter Procedures Procedure Name Priority Date/Time Associated Diagnosis Comments FOOT 3 OR MORE VIEWS 09/27/2012 11:03 EDT documented in this encounter Results * FOOT [...] on filedocumented in this encounter Care Teams Aligner Typewriter Relationship Specialty Start Date End Date Unknown, Provider, PCP - General 07/19/11 01/30/13 documented as of this encounter
--- OUTSIDE RECORDS SUMMARY | 2024-01-26 12:55 | XMS_ITS | Encounter Summary ---
Author Organization [facility] Address [address] [place] [address] Care Team Providers Care Precinct Captain Name Role Phone Unknown, Provider Primary Care Provider [phone] Encounter Details Date Type Department Care Team (Late st Contact Info) Description 08/19/2011 Orders Only [facility] Neurophysiology - Main [place] [address] [place], [place] [address] Elliott Ledezma MD [address] [place] [phone] Other specified idiopathic peripheral neuropathy (Primary Dx) Social History Tobacco Use [...] 10:15 EDT Telemedicine [facility] Neurology - S [address] [address] Med Maldonado MD [address] [place] [phone] 08/31/2024 9:40 EST Appointment Naz Perez [address] [address] documented as of this encounter Results * (ABNORMAL) IMMUNOFIXATION/SPEP (08/19/2011 10:21 EST) Total Protein 7.7 6.5 - 8.3 g/dl [facility] Albumin, SPEP 51.4 47.6 - 61.9 % [facility] Alpha-1 % 4.8(H) 1.4 - 4.6 % [facility] Alpha 2, SPEP 11.0 7.3 - 13.9 % [facility] Beta, SPEP 19.0 10.9 - 19.1 % [facility] Gamma, SPEP 13.8 9.5 - 24.8 % [facility] Comments, SPEP No apparent monoclonal protein [facility] Comment: on serum electrophoresis. See Pathology Scanned Report in [facility]ISM. Immunofixation ,serum Interpretation : [facility] Comment: Negative for monoclonal immunoglobulins. Interpreted by: Vlad Tanner MD, PhD Reference Range: Negative for monoclonal immunoglobulins. Blood specimen (specimen) 08/19/2011 10:21 EST 08/19/2011 10:48 EST Elliott Ledezma MD CHEMISTRY & BLOOD GAS ORDERABLES [facility] [address] [place] [address] * HEMOGLOBIN A1C (08/19/2011 10:21 EST) Hemoglobin A1C 4.8 % [facility] Comment: Shortened red blood cell survival will [...] adverse effects of treatment. Est Avg Glucose 91 mg/dl [facility] Comment: eAG represents the A1c result expressed as average glucose in mg/dl. Blood specimen (specimen) 08/19/2011 10:21 EST 08/19/2011 10:48 EST Elliott Ledezma MD CHEMISTRY & BLOOD GAS ORDERABLES Performing Organization Address City/State/[facility] Co de Phone Number [facility] [address] [place] [address] documented in this encounter Visit Diagnoses Diagnosis Other specified idiopathic peripheral neuropathy- Primary documented in this encounter Care Teams Precinct Captain Relationship Specialty Start Date End Date Unknown, Provider, PCP - General 07/19/11 01/30/13 documented as of this encounter
--- OUTSIDE RECORDS SUMMARY | 2024-01-26 12:55 | XMS_ITS | Encounter Summary ---
Author Organization [facility] Address [address] [place] [address] Care Team Providers Care Foreign Languages Department Chair Name Role Phone Unknown, Provider Primary Care Provider Encounter Details Date Type Department Care Team (Late st Contact Info) Description 07/19/2011 Results Only [facility] [address] [place], [place] [address] Elliott Ledezma MD [address] [place] [phone] Social History Tobacco Use Types Packs/Day Years [...] [facility] Neurology - [address] [address] Med Maldonado MD [address] [place] [phone] 08/31/2024 9:40 EST Appointment Naz Perez Mammography [address] [place] [address] documented as of this encounter Procedures Procedure Name Priority Date/Time Associated Diagnosis Comments MR HEAD WO CONTRAST 08/07/2011 1 1:56 EST documented in this encounter Results * MR HEAD WO CONTRAST (08/07/2011 11:56 EST) Anatomical Region Laterality Modality Other 08/07/2011 11:5 6 EST 08/07/2011 13:32 EST Narrative 08/07/2011 13:32 [...] on filedocumented in this encounter Care Teams Foreign Languages Department Chair Relationship Specialty Start Date End Date Unknown, Provider, PCP - General 07/19/11 01/30/13 documented as of this encounter
--- OUTSIDE RECORDS SUMMARY | 2024-01-26 12:55 | XMS_ITS | Encounter Summary ---
Author Organization [facility] Address [address] [place] [address] Care Team Providers Care Forming Roll Operator Name Role Phone Unknown, Provider Primary Care Provider Encounter Details Date Type Department Care Team (Late st Contact Info) Description 2011 Results Only [facility] Laboratory Services - [facility] ([facility] [address] [place] [phone] Nesha Kimble MD [address] [place] [phone] Social History Tobacco Use Types Packs/Day [...] Telemedicine [facility] Neurology - [address] [phone] Med Maldonado MD [address] [place] [address], Level 2 [place] [phone] 08/31/2024 9:40 [place] [address] documented as of this encounter Procedures Procedure Name Priority Date/Time Associated Diagnosis Comments PAP TEST- RESULT ONLY Routine 2011 0:00 EDT documented in this encounter Results * PAP TEST- RESULT ONLY (2011 0:00 EDT) Pathology Report: CYTOPATHOLOGY REPORT Reports generated via electronic interface contain original data; however they are lacking the format of the original report. Caution should be taken when reading/interpreti ng unformatted reports. Name: ? YOLETTE HOUSE ? Accession #: ? [id number] ? : ? 1980 (Age: 30) ??F ?Collect Date: ? 2011 ? Location: ? RG ? Receive Date: ? 2011 ? Provider: NESHA KIMBLE MD Copy to: ? Final Report SPECIMEN ADEQUACY ? Satisfactory for Evaluation - transformation zone component present GENERAL CATEGORIZATION ? Negative for Intraepithelial Lesion or Malignancy ?? Last Menstural Period: 10/20/11 Hormonal/Contracep tive status: Control Pills Specimen/Source: ??Pap Test, Cervix/Endocervix, ThinPrep Imaging System with manual evaluation Document reviewed and electronically signed by: ? GENESIS Vazquez(ASCP) ? Report ??Date: 10/31/2011 15:31 HPV with Pap Test ? Date Ordered: ? 10/31/2011 ? Status: ?? Signed Out ?Date Complete: ? 11/02/2011 ? By: ??System Interface ? Date Reported: ? 11/02/2011 ? Interpretation RESULT: Negative for HPV. No E6 or E7 mRNA is detected from HPV types 16,18,31,33,35, 39,45,51,52,56,58, 59,66, and 68 by manager of construction mediated amplification. Comments Document reviewed and electronically signed by: ? System Interface ? Report date: 11/02/2011 By the signature above, the attending physician certifies that he/she has personally conducted a gross and/or microscopic examination of the described specimens and rendered or confirmed the above diagnosis. End of Report [facility] 2011 2011 Nesha Kimble MD PATHOLOGY ORDERABLE S [facility] [address] [place] [address] documented in this encounter Visit Diagnoses Not on filedocumented in this encounter Care Teams Forming Roll Operator Relationship Specialty Start Date End Date Unknown, Provider, PCP - General 07/19/11 01/30/13 documented as of this encounter
--- OUTSIDE RECORDS SUMMARY | 2024-01-26 12:55 | XMS_ITS | Encounter Summary ---
Author Organization [facility] Address [address] [place] [address] Care Team Providers Care Electrician Control Equipment Name Role Phone Unknown, Provider Primary Care Provider Encounter Details Date Type Department Care Team (Late st Contact Info) Description 08/19/2011 Phlebotomy Only [facility] [address] [place] [address] Connection Worker, Outpatient Other specified idiopathic peripheral neuropathy Social History Tobacco Use Types Packs/Day [...] Info) Description 01/31/2024 10:15 EDT Telemedicine [facility] Neurology - [address] [address] Med Maldonado MD [address] [place] [address], Level [address] [place] [phone] 08/31/2024 9:40 EST Appointment Naz Perez [address] [phone] documented as of this encounter Procedures Procedure Name Priority Date/Time Associated Diagnosis Comments SPEP WITH IMMUNOTYPING Routine 08/19/2011 10:21 EST Other specified idiopathic peripheral neuropathy HEMOGLOBIN A1C Routine 08/19/2011 10:21 EST Other specified idiopathic peripheral neuropathy documented in this encounter Results * (ABNORMAL) IMMUNOFIXATION/SPEP (08/19/2011 [...] BLOOD GAS ORDERABLES [facility] [address] [place] [address] * HEMOGLOBIN A1C (08/19/2011 10:21 EST) Hemoglobin [...] of treatment. Est Avg Glucose 91 mg/dl [facility] Comment: eAG represents the A1c result expressed as average glucose in mg/dl. Blood specimen (specimen) 08/19/2011 10:21 EST 08/19/2011 10:48 EST Elliott Ledezma MD CHEMISTRY & BLOOD GAS ORDERABLES Performing Organization Address City/State/[facility] Co de Phone Number [facility] [address] [place] [address] documented in this encounter Visit Diagnoses Diagnosis Other specified idiopathic peripheral neuropathy documented in this encounter Care Teams Electrician Control Equipment Relationship Specialty Start Date End Date Unknown, Provider, PCP - General 07/19/11 01/30/13 documented as of this encounter
--- OUTSIDE RECORDS SUMMARY | 2024-01-26 12:55 | XMS_ITS | Encounter Summary ---
Author Organization [facility] Address [address] [place] [address] Care Team Providers Care City Assessor Name Role Phone None, Provider Primary Care Provider Unavailabl e Encounter Details Date Type Department Care Team (Late Contact Info) Description 09/06/2010 Results Only [facility] Laboratory Services - [facility] ([facility]) [address] [place] [id number] Nesha Parada MD [address] [place] [phone] Social History Tobacco Use Types Packs/Day [...] Contact Info) Description 01/31/2024 10:15 EDT Telemedicine [facility] Neurology - [address] [address] Med Maldonado MD [address] [place] [address], Level [address] [place] [phone] 08/31/2024 9:40 EST Appointment Naz Perez [id number] [place] [address] documented as of this encounter Procedures Procedure Name Priority Date/Time Associated Diagnosis Comments CYTOPATHOLOGY Routine 09/06/2010 0:00 EST documented in this encounter Results * CYTOPATHOLOGY (09/06/2010 0:00 EST) Pathology Report: CYTOPATHOLOGY REPORT ? Reports generated via electronic interface contain original data; ? however they are lacking the format of the original report. ? Caution should be taken when reading/interpreti ng unformatted reports. ? Name: ? YOLETTE HOUSE ? Accession #: ? [id number] ? : ? 1980 (Age: 29) ??F ?Collect Date: ? 09/06/2010 ? Location: ? [facility] ? Receive Date: ? 09/07/2010 ? Provider: ?NESHA B ALMIN MD ? Copy to: ? Specimen/Source: ?Pap Test, Cervix/Endocervix, ThinPrep Imaging System ? with manual evaluation ? Last Menstrual Period: ? none, BF ? 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 SPECIMEN ADEQUACY ? Satisfactory for Evaluation ? - transformation zone component present ? GENERAL CATEGORIZATION ? Negative for Intraepithelial Lesion or Malignancy ? Document reviewed and electronically signed by: ? Jacek L. Ina , [place](ASCP) ? Report Date: ??09/11/2010 16:38 ? End of Report ? [facility] 09/06/2010 09/07/2010 Nesha Parada MD PATHOLOGY ORDERABLE S [facility] [address] [place] [address] documented in this encounter Visit Diagnoses Not on filedocumented in this encounter Care Teams City Assessor Relationship Specialty Start Date End Date None, Provider PCP - General 03/03/09 07/18/11 documented as of this encounter
--- OUTSIDE RECORDS SUMMARY | 2024-01-26 12:55 | XMS_ITS | Encounter Summary ---
Author Organization [facility] Address [address] [place] [address] Care Team Providers Care Mold Burner Name Role Phone Unknown, Provider Primary Care Provider Encounter Details Date Type Department Care Team (Late st Contact Info) Description 07/19/2011 Results Only [facility] [address] [place], [place] [address] Elliott Ledezma MD [address] [place] [phone] Social History Tobacco Use Types Packs/Day Years [...] Contact Info) Description 01/31/2024 10:15 EDT Telemedicine [facility] Neurology - [address] [address] Med Maldonado MD [address] [place] [phone] 08/31/2024 9:40 EST Appointment Naz Perez [facility] [address] [place] [address] documented as of this encounter Procedures Procedure Name Priority Date/Time Associated Diagnosis Comments VITAMIN D (25,OH) Routine 07/19/2011 11: 22 EST SSA/SSB Routine 07/19/2011 11:22 EST SED RATE Routine 07/19/2011 11:22 EST C REACTIVE PROTEIN Routine 07/19/2011 11 :22 EST ANTI NUCLEAR AB (JIE), IFA Routine 07/19/2011 11:22 EST documented in this encounter Results * VITAMIN D (25,OH) (07/19/2011 11:22 EST) 25OH Vitamin D Tot 26.6 ng/ml [facility] Comment: Reference Range: <10 ng/ml: Deficient 10-30 ng/ml: Insufficient 30-100 ng/ml: Sufficient >100 ng/ml: Toxic 07/19/2011 11:2 2 EST 07/19/2011 12:37 EST Elliott Ledezma MD CHEMISTRY & BLOOD GAS ORDERABLES Performing Organization Address City/[facility] Co de Phone Number [facility] [address] [place] [address] * SED. RATE:WESTERGREN (07/19/2011 11:22 EST) Sed. Rate Westergren 16 0 - 20 mm/hr [facility] 07/19/2011 11:2 2 EST 07/19/2011 12:37 EST Elliott Ledezma MD HEMATOLOGY & PF4 ORDERABLES Performing Organization Address City/[facility] Co de Phone Number [facility] [address] [place] [address] * SSA/SSB (07/19/2011 11:22 EST) SS A/Ro Ab, IgG, S <0.2 <1.0 (Negative) U [facility] SS B/La Ab, IgG, S <0.2 <1.0 (Negative) U [facility] Comment: Performed by: [facility] [place], [address], [place] [address], Match Marker: Yenifer Jacome, Ph.D. 07/19/2011 11:2 2 EST 07/19/2011 12:37 EST Elliott Ledezma MD CHEMISTRY & BLOOD GAS ORDERABLES Performing Organization Address [facility] [place] [address] * (ABNORMAL) C-REACTIVE PROTEIN (07/19/2011 11:22 EST) C-Reactive Protein 1.0(H) <1.0 mg/dl [facility] 07/19/2011 11:2 2 EST 07/19/2011 12:37 EST Elliott Ledezma MD CHEMISTRY & BLOOD GAS ORDERABLES Performing Organization Address [facility] [place] [address] * ANTI NUCLEAR ANTIBODY (07/19/2011 11:22 EST) Anti Nuclear Ab <40 0 - 40 Dils [facility] 07/19/2011 11:2 2 EST 07/19/2011 12:37 EST Elliott Ledezma MD IMMUNOLOGY AND SE ROLOGY ORDERABLES Performing Organization Address [facility] [place] [address] documented in this encounter Visit Diagnoses Not on filedocumented in this encounter Care Teams Mold Burner Relationship Specialty Start Date End Date Unknown, Provider, PCP - General 07/19/11 01/30/13 documented as of this encounter
--- OUTSIDE RECORDS SUMMARY | 2024-01-26 12:55 | XMS_ITS | Encounter Summary ---
Author Organization [facility] Address [address] [place] [address] Care Team Providers Care Automotive Product Engineer Name Role Phone Unavailable Primary Care Provider Unavailabl e Encounter Details Date Type Department Care Team (Late st Contact Info) Description 09/02/2008 15:07 [facility] Hospital Encounter [facility] [address] [place] [address] Valorie López NP [address] [facility] [address] [place] [phone] Social History Tobacco Use Types [...] Description 01/31/2024 10:15 EDT Telemedicine [facility] Neurology - [address] [place] [address] [place], [place] [phone] Med Maldonado MD [address] [place], [place] [address]mari[address], [address] [place] [phone] 08/31/2024 9:40 EST Appointment Naz Perez [address] [phone] documented as of this encounter Procedures Procedure Name Priority Date/Time Associated Diagnosis Comments CYSTIC FIBROSIS MUTATION ANALYSIS, 106 PANEL Routine 08/05/2009 20:17 EST PROFILE Routine 08/05/2009 20:1 5 EST VARICELLA IGG ANTIBODY Routine 0 20:15 EST HIV 1/2 ANTIGEN AND ANTIBODY, 4TH GENERATION Routine 08/05/2009 20:15 EST BACTERIAL CULTURE, URINE Routine 08/05/2009 19:01 EST THYROID CASCADE Routine 03/03/2009 17:31 EDT HIV 1/2 ANTIGEN AND ANTIBODY, 4TH GENERATION Routine 03/03/2009 17:31 EDT HDL Routine 03/03/2009 17:31 EDT CHLAMYDIA/N. GONORRHOEAE AMPLIFIED NUCLEIC ACID Routine 03/03/2009 9:19 EDT CYTOPATHOLOGY Routine 03/03/2009 0:00 EDT documented in this encounter Results * CYSTIC FIBROSIS MUTATION ANALYSIS (08/05/2009 20:17 EST) Specimen Blood [facility] Specimen ID [id number] [facility] Order Date 08 Aug 2009 08:17 [facility] Reason For Referral Carrier screen for Cystic Fibrosis (CF). ? [facility] Result None of the listed mutations were detected. ? [facility] Interpretation Having excluded the presence of the listed mutations, the ? risk that this individual is a carrier of another cystic ? fibrosis mutation is dependent upon their ethnicity. ? Ethnicity ? Risk (Detection rate, Carrier Freq) ? Northern ?1/267 ?(91%, 08/03) ? Mixed ? 1/120 ?(80%, 08/03) ? Southern ?1/105 ?(77%, 08/03) ? Eastern ? 1/117 ?(75%, 08/08) ? Yemeni ?1/83 ? (65%, 08/08) ? Ashkenazi Caodaism ? 07/2400 ?? (99%, 08/03) ? Monegasque Chickasaw ?1/267 ?(91%, 08/03) ? 1/279 ?(77%, ) ? Czech ?1/238 ?(81%, ) ? Czech* ?1/194 ?(54%, ) ? * does not apply to individuals of Sinhala ancestry ? These calculations were based on the mutation detection ? rates and population carrier frequencies noted in the chart ? and assume no family history of CF. Because there is little ? information available about the carrier frequency and ? mutation detection rates for individuals of other ? ethnicities, we are unable to provide a revised risk ? assessment for ethnicities other than those listed above. ? CAUTIONS: ? Rare polymorphisms exist that could lead to false negative ? or positive results. ??If results obtained do not match the ? clinical findings, additional testing should be considered. ? Test results should be interpreted in context of clinical ? findings, family history, and other laboratory data. ? Misinterpretatio n of results may occur if the information ? provided is inaccurate or incomplete. ? Bone marrow transplants from allogenic donors will interfere ? with testing. Call [facility] for ? instructions for testing patients who have received a bone ? marrow transplant. ? [facility] Method The multiplex PCR-based assay from [employer] is used to detect ? all 23 mutations specified in the [place] [employer] ? [employer] (AC) standards for population based ? carrier screening (jzhetG764, onlnwC116, G542X, G85E, R117H, ? P9249Y, 621+1 G>T, 711+1 G>T, G9152L, R334W, R347P, A455E, ? 1717-1 G>A, R553X, R560T, G551D, 1898+1 G>A, 2184delA, ? 2789+5 G>A, 3120+1 G>A, ??W3812F, 3659delC, and 3849+10kb ? C>T). ??Additionally, the 394delTT, E60X, R75X, 405+3 A>C, ? 406 1 G>A , Y122X, 444delA, R117C, G178R, L206W, 935delA, ? vsbvmJ497, G330X, R352Q,S364P, 1078delT, R347H, V520F, ? G480C, Q493X, 1677delTA, A559T, S549N, S549R, 1812 1 G>A, ? 1898+5G>T, 2183AA>G, 2307insA, 8307vvt7>A, 2143delT, K710X, ? Q890X, 2869insG, 3120G>A, 2651odl3, P3448XG>G, E4691HN>A, ? M9868N, U8350M, S1947X, E0225X, G8080R, 3791delC, F2804B, ? 3905insT, I0963Q, and 3876delA mutations are detected. ??Poly ? T determination and confirmatory testing of homozygous ? results are performed as reflex tests when appropriate. ? [facility] Extractn Performed Yes [facility] Reviewed By Neo Corey PhD ? [facility] Release Date 12 Aug 2009 11:25 Performed or Referred by: [facility] D[facility] of [facility] Med and Path, [address] ?? , [place] [address], Lab Dir: MD AMANUEL Maher III 08/05/2009 20:1 7 EST 08/05/2009 20:17 EST Rosalie Purchase [facility] CHEMISTRY & BLOOD GAS ORDERABLES Performing Organization Address [facility]/ZIP Co de Phone Number [facility] [address] [place] [address] * VARICELLA IGG ANTIBODY (08/05/2009 20:15 EST) Varicella IgG Ab Positive [facility] 08/05/2009 20:1 5 EST 08/05/2009 20:15 EST Rosalie Purchase [facility] IMMUNOLOGY A ND SEROLOGY ORDERABLES Performing Organization Address [facility] Co de Phone Number [facility] [address] [place] [address] * (ABNORMAL) PROFILE (08/05/2009 20:15 EST) Pathologist [facility] WBC 9.41 4.0 - 12.4 K/cmm [facility] RBC 4.51 3.86 - 5.04 M/cmm [facility] Hemoglobin 14.2 11.6 - 15.2 gm/dl [facility] HCT 39.6 34.9 - 44.4 % [facility] MCV 88 81 - 98 fl [facility] MCH 31.4 26.7 - 33.3 pg [facility] MCHC 35.7 32.1 - 35.9 gm/dl [facility] PLT 238 141 - 320 K/cmm [facility] RDW-CV 14.2 11.7 - 14.6 % [facility] Neutrophils 76.3 45.5 - 79.7 % [facility] Lymphocytes 16.1 15.0 - 46.8 % [facility] Monocytes 6.8 1.8 - 12.0 % [facility] Eosinophils 0.4(L) 0.6 - 6.9 % [facility] Basophils 0.4 0.2 - 1.4 % [facility] ABS Neutrophils 7.18 2.20 - 8.85 K/cmm [facility] ABS Lymphs 1.51 1.09 - 3.30 K/cmm [facility] ABS Monocytes 0.64 0.1 - 0.8 K/cmm [facility] ABS Eosinophils 0.04 0.03 - 0.61 K/cmm [facility] ABS Basophils 0.04 0.01 - 0.11 K/cmm [facility] Type of Diff: Automated [facility] ABO and Rh Type A POS [facility] Antibody Screen Neg [facility] Hepatitis B Surface Ag Negative Reference Range: ??Negative [facility] Syphilis Serology Interpretation: Nonreactive Reference Range: Nonreactive [facility] Rubella IgG Ab Antibody detected Assayed utilizing the [employer] Immulite 2500. Values may vary with other methods. [facility] 08/05/2009 20:1 5 EST 08/05/2009 20:15 EST Rosalie MELENDEZ PACKAGES & D NA PROBE ORDERABLES Performing Organization Address [facility] de Phone Number [facility] [address] [place] [address] * HIV ANTIBODY (ALONSO) (08/05/2009 20:15 EST) HIV 1/2 Antibody Negative Reference Range: ??Negative [facility] 08/05/2009 20:1 5 EST 08/05/2009 20:15 EST Rosalie MELENDEZ IMMUNOLOGY A ND SEROLOGY ORDERABLES Performing Organization Address [facility] de Phone Number [facility] [address] [place] [address] * BACTERIAL CULTURE, URINE (08/05/2009 19:01 EST) Specimen Description Urine [facility] Result No growth [facility] Report Status Final 08/07/2009 [facility] 08/05/2009 19:0 1 EST 08/05/2009 19:01 EST Rosalie MELENDEZ MICROBIOLOGY - GENERAL ORDERABLES Performing Organization Address [facility] de Phone Number [facility] [address] [place] [address] * HDL (03/03/2009 17:31 EDT) HDL 49 mg/dl [facility] Comment: Low:<40 High(Desirable):>or=60 Blood specimen (specimen) 03/03/2009 17:31 EDT 03/03/2009 17:32 EDT Valorie López INFORMATION SECURITY MANAGER CHEMISTRY & BLOOD GAS ORDERABLES Performing Organization Address [facility] Co de Phone Number [facility] [address] [place] [address] * THYROID CASCADE (03/03/2009 17:31 EDT) Pathologist [facility] TSH 1.51 0.35 - 5.00 uIU/ml [facility] Comment: TSH cascade is not recommended for patients in which pituitary or hypothalamic disorders are suspected. Blood specimen (specimen) 03/03/2009 17:31 EDT 03/03/2009 17:32 EDT Valorie López INFORMATION SECURITY MANAGER CHEMISTRY & BLOOD GAS ORDERABLES Performing Organization Address [facility] de Phone Number [facility] [address] [place] [address] * HIV ANTIBODY (03/03/2009 17:31 EDT) Pathologist [facility] HIV 1/2 Antibody Negative Reference Range: ??Negative [facility] Blood specimen (specimen) 03/03/2009 17:31 EDT 03/03/2009 17:32 EDT Valorie López INFORMATION SECURITY MANAGER IMMUNOLOGY AND SE ROLOGY ORDERABLES Performing Organization Address [facility] de Phone Number [facility] [address] [place] [address] * CHLAMYDIA/GC AMPLIFIED (03/03/2009 9:19 EDT) Pathologist [facility] Specimen Description Endocervix [facility] Result No Chlamydia trachomatis DNA detected by radiology ct technologist mediated amplification. [facility] Result No Neisseria gonorrhoeae DNA detected by radiology ct technologist mediated amplification. [facility] Specimen of unknown material (specimen) 03/03/2009 9:19 EDT 03/03/2009 12:19 EDT Valorie López NP MICROBIOLOGY - GE NERAL ORDERABLES [facility] [address] [place] [address] * CYTOPATHOLOGY (03/03/2009 0:00 EDT) Pathology Report: CYTOPATHOLOGY REPORT ? Reports generated via electronic interface contain original data; ? however they are lacking the format of the original report. ? Caution should be taken when reading/interpreti ng unformatted reports. ? Name: ? YOLETTE HOUSE ? Accession #: ? [id number] ? : ? 1980 (Age: 28) ??F ?Collect Date: ? 03/03/2009 ? Location: ? [facility] ? Receive Date: ? 03/03/2009 ? Provider: ?VALORIE M LÓPEZ ANP ? Copy to: ? Specimen/Source: ?Pap Test, Cervix/Endocervix, ThinPrep Imaging System ? with manual evaluation ? Last Menstrual Period: ? 06/15/09 ? Other: ? HPVA - HPV testing requested if ASC-US on the current ThinPrep Pap test. ? SPECIMEN ADEQUACY ? Satisfactory for Evaluation ? - transformation zone component present ? GENERAL CATEGORIZATION ? Negative for Intraepithelial Lesion or Malignancy ? Document reviewed and electronically signed by: ? Morgan Gann, CT(ASCP) ? Report Date: ??03/10/2009 12:33 ? End of Report ? [facility] 03/03/2009 03/03/2009 Valorie López INFORMATION SECURITY MANAGER PATHOLOGY ORDERAB LES [facility] [address] [place] [address] documented in this encounter Visit Diagnoses Not on filedocumented in this encounter Additional Health Concerns Infection Onset Date Last Indicated Resolved Time R/O COVID-19 07/15/2020 07/15/2020 07/20/2020 22:1 7 EST documented as of this encounter
--- OUTSIDE RECORDS SUMMARY | 2024-01-26 12:55 | XMS_ITS | Encounter Summary ---
Author Organization [facility] Address [address] [place] [address] Care Team Providers Care Sheet Metal Assembler And Riveter Name Role Phone Bonita Saldana Primary Care Provider Unavailable Encounter Details Date Type Department Care Team (Latest Contact Info) Description 02/01/2013 14:16 EDT - 02/01/2013 15:29 EDT Hospital Encounter [facility] Neurophysiology - Main [place] [address] [place], [place] [phone] Unknown, MD Mavis Elliott Ledezma MD [address] [place] [address] 2 [place] [phone] EmgMD Idiopathic small fiber sensory neuropathy (Primary Dx) Discharge Disposition: Home or Self [...] 02/01/2013 01/02/2014 documented as of this encounter Ordered Prescriptions Prescription Sig Dispensed Refills Start Date End Da te nortriptyline (PAMELOR) 10 mg capsule Take 10mg at bedtime for 2 weeks then increase to 20mg at bedtime 60 Cap 11 02/01/2013 01/02/2014 documented in this encounter Discharge Disposition Disposition Code Departure Means Destination Home or Self Usp documented in this encounter Procedure Notes * HYDRAULIC ROCK DRILL OPERATOR, SCAN 2 - 02/04/2013 8839 EDTAssociated Order(s): ELECTROMYOGRAM - SCANNED * Elliott Ledezma MD - 02/02/2013 0757 EDT NEUROMUSCULAR DIVISION [facility] NEUROMUSCULAR ELECTRODIAGNOSTIC MEDICINE CONSULTATION - 02/01/2013 EMG REPORT HISTORY: Ms. Tellez is a 32-year-old woman who I have seen since July 2011, with multiple areas of numbness. She was most recently seen in the neuromuscular clinic on 11/26/2012. She has persistent tingling in her toes, which is the reason for electrodiagnostic consultation today. She notices a burning-like sensation in bilateral toes, which spreads up to the level of the ankle and occasionally into the george, made worse with standing for a long period of time or with exercise, particularlywalking, running, and doing yoga. She has had an extensive evaluation for this problem in the past including multiple MRIs of the brain and cervical spine, which did not show any evidence of central nervous system demyelination. She had 1 previous EMG nerve conduction study, which is available for comparison today from August of 2011, which did not show evidence of axonal sensory motor polyneuropathy. She also had a skin biopsy performed, which did not show evidence of a small fiber sensory neuropathy. OBJECTIVE: Directed clinical examination: This is an average weight woman who is in no acute distress. Neurological exam: She is alert and oriented x3. She is of normal cognition, normal fund of knowledge, memory and attention. Motor exam: Negative pronator drift, normal tapping and orbiting, normal tone and bulk, full power of her upper and lower extremities. Sensory: Decreased pin sensation to mid foot without temperature, light touch loss in the same distribution. Normal vibration at the toes 20 seconds bilaterally. Negative Romberg. Reflexes: 2+ bilateral biceps, triceps, brachioradialis, knee jerks, and ankle jerks. Toes downgoing. Gait: Normal and casual. For wave forms and values of the EMG nerve conduction study, please refer to the accompanying scanned document. ELECTRODIAGNOSTIC IMPRESSION: This is a normal study. There is no electrodiagnostic evidence of a large fiber sensorimotor polyneuropathy. Comparison is made to the study from August 2011, and there has been no significant change to her nerve conduction in the left lower extremity. CLINICAL IMPRESSION: Possible early small fiber sensory neuropathy. The patient continues to have symptoms of burning in her toes, which is made worse with standing for prolonged periods of time. She does have mild pin loss in her feet, which has previously been seenon clinical exam. This does not seem to be spreading significantly. At this juncture, I would like to resend laboratories directed against a small fiber neuropathy, and I have sent off hemoglobin A1c, TSH/free T4, vitamin B12, methylmalonic acid, SPEP/serum immunofixation, JIE, rheumatoid factor, anti-SSA/SSB antibodies, comprehensive metabolic profile, CBC with differential, hepatitis C/serum, cryoglobulins. If these tests are negative, I do not recommend any additional workup. Since neuropathic pain is causing significant dysfunction in this patient's case and is limiting her ability to exercise, which is an activity that gives her a significant amount of enjoyment, I believe that we should proceed with therapy against neuropathic pain. I prescribed her a tricyclic antidepressant, nortriptyline 10 mg for two weeks and then increase to 20 mg at bedtime. If needed, this can be increased as high as 100 mg at bedtime. I will plan to see the patient back in the neuromuscular clinic in 6 months, so I can reevaluate her at that time and make sure that she does not seem kaylin changing. I n the interim, she will call me with any questions or concerns, and I can follow up w ith her about her laboratory studies as needed. RECOMMENDATIONS: 1. Laboratory testing as above. 2. [employer] nortriptyline for neuropathic pain. 3. Follow up in the neuromuscular clinic in 6 months. Thank you for allowing me to participate in the care of your patient. I will see her back in followup in six months. Please do not hesitate to call with any questions or concerns. Sincerely, Elliott Ledezma MD Materials Clerk of Neurology Neurology Attending Physician ABPN Board Certified, Neurology and Neuromuscular Medicine ABEM Board Certified, EMG - Elliott Ledezma MD tn Dictation ID: [id number] cc: Earl Hooks MD * HYDRAULIC ROCK DRILL OPERATOR, SCAN 2 - 02/01/2013 1420 EDTAssociated Order(s): ORDERS - SCANNED documented in this encounter Plan of Treatment Upcoming Encounters Date Type Department Care Team (Late st Contact Info) Description 01/31/2024 10:15 EDT Telemedicine [facility] Neurology - S [place] [address] [place] [phone] Med Maldonado MD [address] [place] [address], Level [address] [place] [phone] 08/31/2024 9:40 EST Appointment Naz Perez [address] [address] documented as of this encounter Procedures Procedure Name Priority Date/Time Associated Diagnosis Comments ELECTROMYOGRAM - SCANNED 02/04/2013 12:49 EDT ORDERS - SCANNED 02/01/2013 14:2 0 EDT documented in this encounter Results * ELECTROMYOGRAM - SCANNED (02/04/2013 12:49 EDT) 02/04/2013 12:4 9 EDT Narrative 02/04/2013 12:50 EDT Procedure Note HYDRAULIC ROCK DRILL OPERATOR, SCAN 2 - 02/04/2013 12:49 EDT Scan 2 Post Exchange Manager PROCEDURE/MINOR ESVIN GICAL ORDERABLES * CRYO PANEL, SERUM AND PLASMA (02/01/2013 15:38 EDT) Cryoglobulin, Serum Negative Negative %ppt [facility] Comment: (Note) This test is negative at 24 hours. All samples are held and reviewed again at 7 days. If delayed precipitation occurs after 7 days, Immunofixation will be performed and an additional report will follow. Cryofibrinogen Negative Negative [facility] Comment: Performed or Referred by: [facility] [place] [facility]: [facility], [address] [place] [address], Lab Dir: Tom Nolen III, MD Blood specimen (specimen) 02/01/2013 15:38 EDT 02/01/2013 15:52 EDT Elliott Ledezma MD CHEMISTRY & BLOOD GAS ORDERABLES Performing Organization Address [facility] Co de Phone Number [facility] [address] [place] [address] * HEPATITIS C ANTIBODY (02/01/2013 15:38 EDT) Pathologist [facility] Hepatitis C Ab Negative [facility] Comment:Reference Range: Neg ative Blood specimen (specimen) 02/01/2013 15:38 EDT 02/01/2013 15:52 EDT Elliott Ledezma MD CHEMISTRY & BLOOD GAS ORDERABLES Performing Organization Address [facility] Co de Phone Number [facility] [address] [place] [address] * (ABNORMAL) COMPREHENSIVE METABOLIC PANEL (CMP) (02/01/2013 15:38 EDT) Pathologist [facility] Potassium 3.8 3.5 - 5.0 mEq/L [facility] Sodium 140 136 - 145 mEq/L [facility] Chloride 104 96 - 110 mEq/L [facility] CO2 24 24 - 32 mEq/L [facility] Total Alkaline Phosphatase 61 38 - 126 U/L [facility] Bilirubin, Total <0.5 0.2 - 1.3 mg/dl [facility] AST 21 15 - 46 U/L [facility] ALT 21 9 - 52 U/L [facility] Albumin 4.9 3.4 - 4.9 g/dl [facility] Total Protein 7.7 6.5 - 8.3 g/dl [facility] Creatinine 0.49(L) 0.52 - 1.04 mg/dl [facility] GFR, Calculated >60 >60 ml/min/1.7 3m2 [facility] BUN 19 10 - 26 mg/dl [facility] Calcium 10.0 8.5 - 10.5 mg/dl [facility] Calculated Calcium 9.5 8.5 - 10.5 mg/dl [facility] Glucose, Serum 105(H) 70 - 100 mg/dl [facility] Fasting? No [facility] Blood specimen (specimen) 02/01/2013 15:38 EDT 02/01/2013 15:52 EDT Elliott Ledezma MD CHEMISTRY & BLOOD GAS ORDERABLES Performing Organization Address City/State/[facility] Co de Phone Number [facility] [address] [place] [address] * SS-B/LA ANTIBODY, IGG, SERUM (02/01/2013 15:38 EDT) Pathologist [facility] SS B/La Ab, IgG, S <0.2 <1.0 (Negative) U [facility] Comment: Performed by: [facility], [address], [place] [address], Supervisor Ride Assembly: Yenifer Jacome, Ph.D. Blood specimen (specimen) 02/01/2013 15:38 EDT 02/01/2013 15:52 EDT Elliott Ledezma MD IMMUNOLOGY AND SE ROLOGY ORDERABLES Performing Organization Address [facility] Phone Number [facility] [address] [place] [address] * SS-A/RO ANTIBODY, IGG, SERUM (02/01/2013 15:38 EDT) SS A/Ro Ab, IgG, S <0.2 <1.0 (Negative) U [facility] Comment: Performed by: [facility], [address], [place] [address], Supervisor Ride Assembly: Yenifer Jacome, Ph.D. Blood specimen (specimen) 02/01/2013 15:38 EDT 02/01/2013 15:52 EDT Elliott Ledezma MD IMMUNOLOGY AND SE ROLOGY ORDERABLES Performing Organization Address [facility] de Phone Number [facility] [address] [place] [address] * RHEUMATOID FACTOR (02/01/2013 15:38 EDT) Rheumatoid Factor <20 <20 IU/ml [facility] Blood specimen (specimen) 02/01/2013 15:38 EDT 02/01/2013 15:52 EDT Elloitt Ledezma MD CHEMISTRY & BLOOD GAS ORDERABLES Performing Organization Address [facility] de Phone Number [facility] [address] [place] [address] * ANTI NUCLEAR ANTIBODY (02/01/2013 15:38 EDT) Anti Nuclear Ab <40 0 - 40 Dils [facility] Blood specimen (specimen) 02/01/2013 15:38 EDT 02/01/2013 15:52 EDT Elliott Ledezma MD IMMUNOLOGY AND SE ROLOGY ORDERABLES Performing Organization Address [facility]/ZIP Co de Phone Number [facility] [address] [place] [address] * IMMUNOFIXATION/SPEP (02/01/2013 15:38 EDT) Total Protein 7.5 6.5 - 8.3 g/dl [facility] Albumin, SPEP 58.9 47.6 - 61.9 % [facility] Alpha-1 % 2.8 1.4 - 4.6 % [facility] Alpha 2, SPEP 7.7 7.3 - 13.9 % [facility] Beta, SPEP 16.7 10.9 - 19.1 % [facility] Gamma, SPEP 13.8 9.5 - 24.8 % [facility] Comments, SPEP No apparent monoclonal protein [facility] Comment: on serum electrophoresis. See Pathology Scanned Report in PRISM. Immunofixation ,serum Interpretation : [facility] Comment: Negative for monoclonal immunoglobulins. Interpreted by: Vlad Tanner MD, PhD Reference Range: Negative for monoclonal immunoglobulins. Blood specimen (specimen) 02/01/2013 15:38 EDT 02/01/2013 15:52 EDT Elliott Ledezma MD CHEMISTRY & BLOOD GAS ORDERABLES [facility] [address] [place] [address] * METHYLMALONIC ACID (02/01/2013 15:38 EDT) Methylmalonic Acid 0.16 <=0.40 nmol/mL [facility] Comment: Performed or Referred by: [facility]: [facility], [address] [place] [address], Lab Dir: Tom Nolen III, MD Blood specimen (specimen) 02/01/2013 15:38 EDT 02/01/2013 15:52 EDT Elliott Ledezma MD CHEMISTRY & BLOOD GAS ORDERABLES Performing Organization Address City/State/[facility] Co de Phone Number [facility] [address] [place] [address] * VITAMIN B12 (02/01/2013 15:38 EDT) Pathologist [facility] Vitamin B-12 544 211 - 911 pg/ml [facility] Blood specimen (specimen) 02/01/2013 15:38 EDT 02/01/2013 15:52 EDT Elliott Ledezma MD CHEMISTRY & BLOOD GAS ORDERABLES Performing Organization Address [facility] de Phone Number [facility] [address] [place] [address] * T4 FREE (02/01/2013 15:38 EDT) Pathologist [facility] Free T4 1.2 0.8 - 1.8 ng/dL [facility] Blood specimen (specimen) 02/01/2013 15:38 EDT 02/01/2013 15:52 EDT Elliott Ledezma MD CHEMISTRY & BLOOD GAS ORDERABLES Performing Organization Address [facility] de Phone Number [facility] [address] [place] [address] * TSH (02/01/2013 15:38 EDT) Pathologist [facility] TSH 1.71 0.35 - 5.00 uIU/ml [facility] Blood specimen (specimen) 02/01/2013 15:38 EDT 02/01/2013 15:52 EDT Elliott Ledezma MD CHEMISTRY & BLOOD GAS ORDERABLES Performing Organization Address [facility] de Phone Number [facility] [address] [place] [address] * HEMOGLOBIN A1C (02/01/2013 15:38 EDT) Pathologist [facility] Hemoglobin A1C 4.9 % [facility] Comment: Shortened red blood [...] treatment. Est Avg Glucose 94 mg/dl [facility] Comment: eAG represents the A1c result expressed as average glucose in mg/dl. Blood specimen (specimen) 02/01/2013 15:38 EDT 02/01/2013 15:52 EDT Elliott Ledezma MD CHEMISTRY & BLOOD GAS ORDERABLES [facility] [address] [place] [address] * ORDERS - SCANNED (02/01/2013 14:20 EDT) 02/01/2013 14:2 0 EDT Narrative 02/01/2013 14:20 EDT Procedure Note HYDRAULIC ROCK DRILL OPERATOR, SCAN 2 - 02/01/2013 14:20 EDT Scan 2 Post Exchange Manager ADMISSION ORDERABLE S documented in this encounter Visit Diagnoses Diagnosis Idiopathic small fiber sensory neuropathy- Primary Idiopathic progressive polyneuropathy documented in this encounter Orders Lab Orders Without Results Count Last Ordered D ate First Ordered Date ELECTROPHORESIS, SERUM 1 02/01/2013 documented in this encounter Care Teams Sheet Metal Assembler And Riveter Relationship Specialty Start Date End Date Bonita Saldana PCP - General 01/31/13 01/15/14 documented as of this encounter
--- OUTSIDE RECORDS SUMMARY | 2024-01-26 12:55 | XMS_ITS | Encounter Summary ---
Author Organization [facility] Address [address] [place] [address] Care Team Providers Care Vice President & General Manager [employer] Name Role Phone None, Provider Primary Care Provider Unavailabl e Encounter Details Date Type Department Care Team (Latest Contact Info) Description 09/06/2010 17:37 EST - 09/06/2010 17:39 EST Hospital Encounter [facility] - Other [address] [place] [address] Nesha Parada MD [address] [place] [phone] Discharge Disposition: Home or Self Care [...] Contact Info) Description 01/31/2024 10:15 EDT Telemedicine [facility] Neurology - [place] [address] [place] [phone] Med Maldonado MD 1 [facility], Level 2 [place] [phone] 08/31/2024 9:40 EST Appointment Naz Perez [address] [phone] documented as of this encounter Visit Diagnoses Not on filedocumented in this encounter Care Teams Vice President & General Manager [employer] Relationship Specialty Start Date End Date None, Provider PCP - General 03/03/09 07/18/11 documented as of this encounter
--- OUTSIDE RECORDS SUMMARY | 2024-01-26 12:55 | XMS_ITS | Encounter Summary ---
Author Organization [facility] Address [address] [place] [address] Care Team Providers Care Component Lab Tech Name Role Phone Unknown, Provider Primary Care Provider Encounter Details Date Type Department Care Team (Late st Contact Info) Description 07/19/2011 Phlebotomy Only [facility] [address] [place], [place] [phone] Dairy Feed Worker, Outpatient Social History Tobacco Use Types Packs/Day Years [...] [facility] Neurology - S [address] [phone] Med Maldonado MD [address] [place] [address], [address] [place] [phone] 08/31/2024 9:40 EST Appointment Naz ePrez [address] [phone] documented as of this encounter Visit Diagnoses Not on filedocumented in this encounter Care Teams Component Lab Tech Relationship Specialty Start Date End Date Unknown, Provider, PCP - General 07/19/11 01/30/13 documented as of this encounter
--- OUTSIDE RECORDS SUMMARY | 2024-01-26 12:55 | XMS_ITS | Encounter Summary ---
Author Organization [facility] Address [address] [place] [address] Care Team Providers Care Quality Control Microbiologist Name Role Phone None, Provider Primary Care Provider Unavailabl e Encounter Details Date Type Department Care Team (Late st Contact Info) Description 05/31/2011 Abstract Used for ABSTRACTING Data [phone] Valorie Flores, YOVANY [address] [facility] [address] [place] [phone] Social History Tobacco Use Types Packs/Day Years [...] Description 01/31/2024 10:15 EDT Telemedicine [facility] Neurology - [place] [address] [place], [place] [address] Med Maldonado MD [address] [place] [address] [address] [place] [phone] 08/31/2024 9:40 EST Appointment Naz Perez [address] [address] documented as of this encounter Visit Diagnoses Not on filedocumented in this encounter Care Teams Quality Control Microbiologist Relationship Specialty Start Date End Date None, Provider PCP - General 03/03/09 1 documented as of this encounter
--- OUTSIDE RECORDS SUMMARY | 2024-01-26 12:56 | XMS_ITS | Encounter Summary ---
Author Organization [facility] Address [address] [place] [address] Care Team Providers Care Director Medical Surgical Name Role Phone None, Provider Primary Care Provider Unavailabl e Encounter Details Date Type Department Care Team (Late st Contact Info) Description 07/05/2006 Results Only [facility] Women's Services - [facility] [address] [place], [place] [address] Valorie López, YOVANY 111 [facility] [address] [place] [phone] Social History Tobacco Use Types [...] Info) Description 01/31/2024 10:15 EDT Telemedicine [facility] Neurology - S [address] [phone] Med Maldonado MD [address] [place] [address] [address] [place] [phone] 08/31/2024 9:40 EST Appointment Naz Perez [address] [address] documented as of this encounter Procedures Procedure Name Priority Date/Time Associated Diagnosis Comments CYTOPATHOLOGY Routine 07/05/2006 0:00 EST documented in this encounter Results * CYTOPATHOLOGY (07/05/2006 0:00 EST) Pathology Report: CYTOPATHOLOGY REPORT Reports generated via electronic interface contain original data; however they are lacking the format of the original report. Caution should be taken when reading/interpreti ng unformatted reports. Name: ? ANGELICA, EMILY Ishan ? Accession #: ? [id number] : ? 1980 (Age: 25) ??F ?Collect Date: ? 07/05/2006 Location: ? [facility] ? Receive Date: ? 07/06/2006 Provider: ?VALORIE LÓPEZ ANP Copy to: ? Specimen/Source: ?ThinPrep Pap Test, Cervix/Endocervix, processed on [employer] ThinPrep Imaging System, with manual evaluation Last Menstrual Period: ? 06/14/06 Hormonal/Contracep tive Status: ? Yes: Mircette Treatment History: ? Colposcopy: 01/12, first pap after Colpo ? SPECIMEN ADEQUACY ? Satisfactory for Evaluation - transformation zone component present GENERAL CATEGORIZATION ? Negative for Intraepithelial Lesion or Malignancy INTERPRETATION ? Fungal organisms present morphologically consistent with Milka species. ? Document reviewed and electronically signed by: ? GENESIS Zarco(ASCP) ? Report Date: ??07/12/2006 14:51 End of Report [facility] 07/05/2006 07/06/2006 Valorie López FIRE PREVENTION INSPECTOR PATHOLOGY ORDERAB LES Performing Organization Address City/State/[facility] Co de Phone Number [facility] [address] [place] [address] documented in this encounter Visit Diagnoses Not on filedocumented in this encounter Care Teams Director Medical Surgical Relationship Specialty Start Date End Date None, Provider PCP - General 03/03/09 07/18/11 documented as of this encounter
--- OUTSIDE RECORDS SUMMARY | 2024-01-26 12:56 | XMS_ITS | Encounter Summary ---
[place] [address] Care Team Providers Care Costume Shop Manager Name Role Phone Angelic Silva APRN Primary Care Provider [phone] Encounter Details Date Type Department Care Team (Late st Contact Info) Description 01/03/2022 Telephone [place] [phone] Luda Shahid, RN Social History Tobacco Use Types Packs/Day Years Used Date Smoking Tobacco: Never Assessed Sex and Gender Information Value Date Recorded Sex Assigned at Not on file Gender Identity Not on file Sexual Orientation Not on file documented as of this encounter Miscellaneous Notes * Telephone Encounter - Luda Shahid, RN - 01/03/2022 2:12 PM EDT Called Patient and left message With my contact numbers. documented in this encounter Plan of Treatment Not on file documented as of this encounter Visit Diagnoses Not on filedocumented in this encounter Care Teams Costume Shop Manager Relationship Specialty Start Date End Date Angelic Silva APRN [address] [place] [address] PCP - General Family Medicine 05/26/16 documented as of this encounter
--- OUTSIDE RECORDS SUMMARY | 2024-01-26 12:56 | XMS_ITS | Encounter Summary ---
Author Organization [facility] Address [address] [place] [address] Care Team Providers Care Jig And Fixture Maker Name Role Phone Unavailable Primary Care Provider Unavailabl e Encounter Details Date Type Department Care Team (Latest Contact Info) Description 12/18/2001 15:15 EDT Hospital Encounter [facility] - S [address] [address] Jen Gupta MD Discharge Disposition: Auto Discharge Social History Tobacco [...] 01/31/2024 10:15 EDT Telemedicine [facility] Neurology - S [address] [address] Med Maldonado MD [address] [place] [address], Level [address] [place] [phone] 08/31/2024 9:40 EST Appointment Naz Perez [address] [phone] documented as of this encounter Procedures Procedure Name Priority Date/Time Associated Diagnosis Comments L SPINE 4 OR MORE VIEWS Routine 12/18/2001 15:40 EDT documented in this encounter Results * L SPINE 4 OR MORE VIEWS (12/18/2001 15:40 EDT) Anatomical Region Laterality Modality Other 12/18/2001 15:4 0 EDT Narrative 04/22/2009 2:01 EDT CHRONIC LOWER BACK PAIN, 1ST AFTER MENSES BUT NOW UNRELATED TO MENSES ? VERTEBRAL ABNORMALITY LUMBAR SPINE SERIES, FOUR-VIEW STUDY A metallic artifact is seen over the navel, which looks navel jewelry. The examination shows no fracture. The vertebral body heights and disk spaces are maintained. CONCLUSION: No fracture is seen, four-view study of the lumbar spine. /[facility] Procedure Note Beto Fowler MD - 04/22/2009 CHRONIC LOWER BACK PAIN, 1ST AFTER MENSES BUT NOW UNRELATED TO MENSES ? VERTEBRAL ABNORMALITY LUMBAR SPINE SERIES, FOUR-VIEW STUDY A metallic artifact is seen over the navel, which looks navel jewelry. The examination shows no fracture. The vertebral body heights and disk spaces are maintained. CONCLUSION: No fracture is seen, four-view study of the lumbar spine. /[facility] Jen Gupta MD IMG DIAGNOSTIC IMAGI NG ORDERABLES documented in this encounter Visit Diagnoses Not on filedocumented in this encounter
--- OUTSIDE RECORDS SUMMARY | 2024-01-26 12:56 | XMS_ITS | Encounter Summary ---
Author Organization [facility] Address [address] [place] [address] Care Team Providers Care Construction Driver Name Role Phone None, Provider Primary Care Provider Unavailabl e Encounter Details Date Type Department Care Team (Late st Contact Info) Description 09/11/[address] [facility] - [facility] conversion [address] [place] [address] Joy Bauer PA [address] [place], [place] [id number] Social History Tobacco Use Types Packs/Day Years Used Date Smoking Tobacco: Never Assessed Sex and Gender Information Value Date Recorded Sex Assigned at Not on file Gender Identity Female 02/24/2020 22:01 EDT Sexual Orientation Not on file documented as of this encounter Progress Notes * Joy Bauer - 09/02/2009 1810 EST Department - Physician Summary Registration Date/Time: 09/11/2005 20:21 Arrived- By private vehicle. Historian - patient. HISTORY OF PRESENT ILLNESS Chief complaint- ABDOMINAL PAIN and VOMITING elevated liver function tests. This started 4 days ago, not improving and is still present. It is described as pain and well localized and it is described as radiating to back (R posterior chest). And located in the right chest and the right upper quadrant. At its maximum, severity described as moderate. When seen in theE.D., severity described as moderate. Modifying factors (worse when moves around). She has had nausea and loss of appetite. The patient has had vomiting (2-3 times today). No diarrhea. The patient was seen recently by a health care provider (seen at [facility] 2 days ago for similar sx except that had bad RUBALCAVA at that point which has resolved, and is now coughing). REVIEW OF SYSTEMS Last normal menstrual period now -. The patient has had chest pain and a cough. She has had a mild skin rash consisting of redness located on the back, chest and abdomen. Skin rash is not itchy. Norecent exposure. The patient has had back pain ( Right side of Chest). No constipation, black stools, hematemesis, pain with urination or urinary frequency. No headache, sore throat, blurred vision, d ifficulty breathing or joint pain. PAST HISTORY See nurses notes. Medications: See nurses notes. Allergies: See nurses notes. ADDITIONAL NOTES The nursing notes have been reviewed. PHYSICAL EXAM Appearance: Alert. Oriented X3. Patient in mild distress. Distress appears due to pain. Vital Signs: Have been reviewed - Eyes: Pupils equal, round and reactive to light. No scleral icterus. ENT: Pharynx normal. Neck: Normal inspection. Neck supple. No lymphadenopathy or meningeal signs. CVS: Normal heart rate and rhythm. Respiratory: No respiratory distress. Breath sounds normal. Abdomen: Tenderness in the right upper quadrant. Mild guarding present. Abdomen soft. Back: No CVA tenderness. Skin: Normal skin color and turgor. Skin warm and dry. Mild, macular skin rash located on the rightarm and right leg, left arm and left leg and trunk (not itchy). No petechial skin rash. Extremities: No lower extremity edema. Neuro: Oriented X 3. No motor deficit. No sensory deficit. Reflexes normal. LABS, X-RAYS, AND EKG Chest X-ray: Normal Chest X-Ray: independently viewed by me. CBC: CBC is normal. Chemistries: Na - 137. K - 3.4. Cl - 104. HCO3 - 27. Glucose - 90. BUN - 7. Cr - 0.5. Total protein6.5. Albumin 3.4. Bilirubin: 1.8. AST 220. ALT 249. Alkaline phosphatase 120. Lipase 129. PROGRESS AND PROCEDURES Patient and family counseled in person regarding the patient's diagnosis and need for follow-up. ED Attending on duty and available for supervision: Waylon Reynoso. Disposition: Discharged home. Condition: stable. CLINICAL IMPRESSION Viral syndrome (with hepatitis). Rule out hepatitis . INSTRUCTIONS Do not go to school for three days. Avoid tylenol until your liver tests are normal. Drink plenty of fluids. ( small amounts frequently). Prescription Medications: Dilaudid take 1-2 tablets orally every 4 hours as needed for pain. Dispense ten (10). No refill. Generic substitute OK. OTC Medications: Ibuprofen 200 mg (available over the counter): take 2 orally every 4 hours as needed for pain or fever. Follow-up: Follow up with Doctor Albert Luly. (Electronically signed by Dylan Ordonez 09/12/2005 5:53) Attending Note: I supervised care provided by the PA. We have discussed the case. I have reviewed the note and agree with the plan of treatment. I personally interviewed the patient and examined the patient. (Electronically signed by Lalo Reynoso M.D. 09/13/2005 21:31) Department - Nursing Summary Registration Date/Time: 09/11/2005 20:21 TRIAGE Initial Assessment Triage time 20:22 Sep 11 2005 . Acuity: LEVEL 3. BP: 121 / 83 sitting. HR: 80. RR: 16. Temp: tympanic 37.1 C. Alert. No acute distress. --2025 Aileen Canela R.N. Medications control pills - --2025 Aileen Canela R.N. Allergies No known drug allergies. --2025 Aileen Canela R.N. History ( seen at walk in on monday for similar symptoms, today here for worsening back pain and abdominal pain states LFTs elevated on exam on monday). The patient has had skin rash, nausea, vomiting, abdominalpain and back pain. PAST HX: Negative. Last normal menstrual period now - SOCIAL HX: Nonsmoker. No alcohol use. Arrived by private vehicle and accompanied by family. Historian: patient. --2025 Aileen Canela R.N. PAST HX: Last normal menstrual period now - --2025 Aileen Canela R.N. NURSING PROGRESS NOTES Progress Patient identifiers checked. Patient gowned. Head of bed elevated. Call light placed in reach. Siderails up x 1. Bed placed in lowest position. Brakes of bed on. --2108 Laurita Padgett E.M.T. Blood samples drawn by tech per protocol and sent to lab: purple, blue and tiger top. --2151 Roslyn Jolly E.M.T. PHENERGAN 12.5 mg diluted with IV fluid slow IVP over 2 minutes. IV patency established. IV site checked: no pain, redness, or swelling. IV flushed thoroughly pre- and post-medication administration.Sedative drug warning given to the patient. The patient is calm and resting quietly. Patient reports current pain level as 9/10. --2210 Elaine Marshall (easy arousable). The patient is sleeping. --2247 David Garcia R.N. DILAUDID 2 mg diluted with IV fluid slow IVP over 2 minutes. IV patency established. IV site checked: no pain, redness, or swelling. IV flushed thoroughly pre- and post-medication administration. . --0001 Albania Zuniga R.N. ( Pt reports feeling like the room is spinning. Family at bedside. ELGIN Wallowa in to see pt.). --0024Cmathew Campo R.N. DILAUDID 2 mg starter pack to go (Rx 791) PO. PHENERGAN 25 mg 2 to go ME. . --137 Licha Rodriguez R.N. IV / I&O Flowsheet IV site #1: location right antecubital space. Started: 20g angiocath; aseptic technique used; good blood return noted. IV fluid started - #1 bag NS 1000 mL. --2152 Roslyn Jolly E.M.TFelipe Late entry -. IV fluid bag #1 discontinued. IV fluid started - #2 bag NS 1000 mL. Rate - wide open.--135 Licha Rodriguez R.N. INTAKE: 2000 mL IV. --135 Licha Rodriguez R.N. 0136. IV site discontinued: IV catheter intact, dressing applied. --0140 Licha Rodriguez R.N. DISPOSITION / DISCHARGE Patient reports pain level on departure as (feel a little better). Condition at departure: improved. Fall risk assessment completed. Low fall risk potential. No learning barriers present. Dischargeinstructions reviewed with the patient and parent. Reviewed warnings. Reviewed medication. Reviewedreferrals. Patient verbalized understanding. Written instructions provided in Indonesian. The patient was discharged home and accompanied by parent. The patient left the Emergency Department in a wheelchair and via private vehicle. Parent driving. Patient has no belongings. --013 Licha Rodriguez R.N. 0139. BP: 109 / 62. HR: 74. RR: 14. Temp: 36.3 C (oral). O2 saturation: 97% room air. --0141 Elaine Rudd R.N., E.M.T. Polly Rocray E.M.T. Mieneke Maher, R.N. Audra Fisher R.N. Clare Rowley, R.N. Alice Barber R.N. Locked/Released at 09/12/2005 8:37 by Laurie Trotter R.N. documented in this encounter Plan of Treatment Upcoming Encounters Date Type Department Care Team (Late st Contact Info) Description 01/31/2024 10:[address] [facility] Neurology - S [address] [id number] Med Maldonado MD [address] [place] [address], Level [address] [place] [phone] 08/31/2024 9:40 EST Appointment Naz Perez [address] [phone] documented as of this encounter Visit Diagnoses Not on filedocumented in this encounter Care Teams Construction Driver Relationship Specialty Start Date End Date None, Provider PCP - General 03/03/09 07/18/11 documented as of this encounter
--- OUTSIDE RECORDS SUMMARY | 2024-01-26 12:56 | XMS_ITS | Encounter Summary ---
Author Organization [facility] Address [address] [place] [address] Care Team Providers Care Production Scheduler Name Role Phone None, Provider Primary Care Provider Unavailabl e Encounter Details Date Type Department Care Team (Late st Contact Info) Description 06/28/2004 Results Only [facility] Women's Services - [facility] [address] [place], [place] [address] Valorie López, YOVANY [address] [facility] 4 [place] [address] Social History Tobacco Use Types Packs/Day Years Used Date Smoking Tobacco: Never Assessed Sex and Gender Information Value Date Recorded Sex Assigned at Not on file Gender Identity Female 02/24/2020 22:01 EDT Sexual Orientation Not on file documented as of this encounter Plan of Treatment Upcoming Encounters Date Type Department Care Team (Late st Contact Info) Description 01/31/2024 10:15 EDT Telemedicine [facility] Neurology - S [address] [id number] Med Maldonado MD [address] [place] [address] 2 [place] [phone] 08/31/2024 9:40 EST Appointment Naz Perez [address] [address] documented as of this encounter Procedures Procedure Name Priority Date/Time Associated Diagnosis Comments N. GONORRHOEAE AMPLIFIED PROBE Routine 06/28/2004 11:10 EST ZZCHLAMYDIA TRACHOMATIS AMPLIFIED PROBE Routine 06/28/2004 11:10 EST HIV 1/2 ANTIGEN AND ANTIBODY, 4TH GENERATION Routine 06/28/2004 11:10 EST CYTOPATHOLOGY Routine 06/28/2004 0:00 EST documented in this encounter Results * N. GONORRHOEAE AMPLIFIED PROBE (06/28/2004 11:10 EST) Result No Neisseria gonorrhoeae DNA detected by furniture fabricator mediated amplification. [facility] Report Status Final [id number] [facility] Specimen Description Cervix [facility] 06/28/2004 11:1 0 EST 06/28/2004 22:34 EST Valorie López SENIOR ASIC DESIGN ENGINEER MICROBIOLOGY - GE NERAL ORDERABLES Performing Organization Address City/[facility] Co de Phone Number [facility] [address] [place] [address] * CHLAMYDIA TRACHOMATIS AMPLIFIED PROBE (06/28/2004 11:10 EST) Specimen Description Cervix [facility] Result No Chlamydia trachomatis DNA detected by furniture fabricator mediated amplification. [facility] Report Status Final [id number] [facility] 06/28/2004 11:1 0 EST 06/28/2004 22:34 EST Valorie López SENIOR ASIC DESIGN ENGINEER MICROBIOLOGY - GE NERAL ORDERABLES Performing Organization Address [facility] Co de Phone Number [facility] [address] [place] [address] * HIV ANTIBODY (06/28/2004 11:10 EST) HIV 1/2 Antibody NONREACT. NR [facility] 06/28/2004 11:1 0 EST 06/28/2004 17:02 EST Valorie López SENIOR ASIC DESIGN ENGINEER IMMUNOLOGY AND SE ROLOGY ORDERABLES [facility] [address] [place] [address] * CYTOPATHOLOGY (06/28/2004 0:00 EST) Pathology Report: CYTOPATHOLOGY REPORT Reports generated via electronic interface contain original data; however they are lacking the format of the original report. Caution should be taken when reading/interpreti ng unformatted reports. Name: ? YOLETTE HOUSE ? Accession #: ? [id number] : ? 1980 (Age: 23) ??F ?Collect Date: ? 06/28/2004 Location: ? [facility] ? Receive Date: ? 06/29/2004 Provider: ?VALORIE LÓPEZ ANP Copy to: ? Specimen/Source: ?ThinPrep Pap Test, Cervix/Endocervix Last Menstrual Period: ? 06/05/04 Hormonal/Contracep tive Status: ? Yes: Mircette Other: ? HPVA - HPV testing requested if ASC-US on the current ThinPrep Pap test. ? SPECIMEN ADEQUACY ? Satisfactory for Evaluation - transformation zone component present GENERAL CATEGORIZATION ? Negative for Intraepithelial Lesion or Malignancy ? Document reviewed and electronically signed by: ? GENESIS Liang(ASCP) ? Report Date: ??07/06/2004 13:29 End of Report [facility] 06/28/2004 06/29/2004 Valorie López SENIOR ASIC DESIGN ENGINEER PATHOLOGY ORDERAB LES Performing Organization Address City/State/[facility] Co de Phone Number [facility] [address] [place] [address] documented in this encounter Visit Diagnoses Not on filedocumented in this encounter Care Teams Production Scheduler Relationship Specialty Start Date End Date None, Provider PCP - General 03/03/09 07/18/11 documented as of this encounter
--- OUTSIDE RECORDS SUMMARY | 2024-01-26 12:56 | XMS_ITS | Encounter Summary ---
Author Organization [facility] Address [address] [place] [address] Care Team Providers Care Mule Tender Name Role Phone Unavailable Primary Care Provider Unavailabl e Encounter Details Date Type Department Care Team (Latest Contact Info) Description 09/09/2005 17:01 EST Hospital Encounter [address] [address] Yenifer Walton MD [address] [place] [address] 1 [place] [phone] Discharge Disposition: Auto Discharge Social History Tobacco [...] Description 01/31/2024 10:15 EDT Telemedicine [facility] Neurology - S [address] [phone] Med Maldonado MD [address] [place] [address] 2 [place] [phone] 08/31/2024 9:40 EST Appointment [facility] [address] [place] [address] documented as of this encounter Procedures Procedure Name Priority Date/Time Associated Diagnosis Comments URINE SEDIMENT (MICRO) WITHOUT REFLEX TO CULTURE Routine 09/09/2005 19:49 EST URINE CULTURE IF POSITIVE Routine 09/09/2005 19:49 EST TEST, URINE Routine 09/09/2005 19:48 EST MONO-TEST Routine 09/09/2005 18:19 EST COMPLETE BLOOD COUNT AND DIFFERENTIAL Routine 09/09/2005 17:52 EST LIPASE Routine 09/09/2005 17:52 EST COMPREHENSIVE METABOLIC PANEL (CMP) Routine 09/09/2005 17:52 EST documented in this encounter Results * (ABNORMAL) URINE MICROSCOPIC ONLY (09/09/2005 19:49 EST) WBC, UA None seen 0 - 5 /HPF [facility] RBC, UA 1 to 5 0 - 5 /HPF [facility] Squam Epithel, UA Few(A) NS /HPF [facility] Renal Epithel, UA None seen NS /HPF [facility] Bacteria, UA None seen NS /HPF [facility] Crystals, UA None seen /HPF [facility] Hyaline Casts, UA None seen /LPF [facility] UA Comment Microscopic results are unreliable on urines unrefrig >2hrs or refrig >8hrs. Performed at [place], [place] [facility] 09/09/2005 19:4 9 EST 09/09/2005 19:58 EST Yenifer Walton MD URINALYSIS O RDERABLES [facility] [address] [place] [address] * CULTURE IF UA POSITIVE (09/09/2005 19:49 EST) Culture if Indicated Culture not indicated by urinalysis results. [facility] 09/09/2005 19:4 9 EST 09/09/2005 19:58 EST Yenifer Walton MD MICROBIOLOGY - GENERAL ORDERABLES Performing Organization Address [facility] Phone Number [facility] [address] [place] [address] * TEST, URINE (09/09/2005 19:48 EST) Result-Pregnanc y Test, Ur Neg [facility] 09/09/2005 19:4 8 EST 09/09/2005 19:58 EST Yenifer Walton MD URINALYSIS O RDERABLES Performing Organization Address [facility] Phone Number [place] [address] * MONO-TEST (09/09/2005 18:19 EST) Pathologist [facility]-Test Neg NEG [facility] Comment:Performed at [facility] [place], [place] 09/09/2005 18:1 9 EST 09/09/2005 18:25 EST Yenifer Walton MD CHEMISTRY & BLOOD GAS ORDERABLES Performing Organization Address [facility] Phone [place] [address] * LIPASE (09/09/2005 17:52 EST) Pathologist [facility] Lipase 125 0 - 250 U/L [facility] Comment:Performed at [facility], [place], [place] 09/09/2005 17:5 2 EST 09/09/2005 18:02 EST Yenifer Walton MD CHEMISTRY & BLOOD GAS ORDERABLES Performing Organization Address [facility] Phone Number [facility] [address] [place] [address] * (ABNORMAL) COMPREHENSIVE METABOLIC PANEL (09/09/2005 17:52 EST) Pathologist [facility] Potassium 3.7 3.5 - 5.0 mEq/L [facility] Sodium 138 136 - 145 mEq/L [facility] Chloride 100 96 - 110 mEq/L [facility] CO2 27 24 - 32 mEq/L [facility] Total Alkaline Phosphatase 119 38 - 126 U/L [facility] Bilirubin, Total 2.3(H) 0.2 - 1.3 mg/dl [facility] AST 356(H) 15 - 46 U/L [facility] ALT 235(H) 9 - 52 U/L [facility] Albumin 3.8 3.4 - 4.9 g/dl [facility] Total Protein 7.0 6.5 - 8.3 g/dl [facility] Creatinine 0.5(L) 0.7 - 1.5 mg/dl [facility] BUN 11 10 - 26 mg/dl [facility] Calcium 8.8 8.5 - 10.5 mg/dl [facility] Calculated Calcium 9.4 8.5 - 10.5 mg/dl [facility] Glucose, Serum 101 70 - 110 mg/dl [facility] Comment:Performed at [facility], [place], [place] Fasting? No [facility] Albumin/Globulin Ratio 1.2 [facility] 09/09/2005 17:5 2 EST 09/09/2005 18:02 EST Yenifer Walton MD CHEMISTRY & BLOOD GAS ORDERABLES [facility] [address] [place] [address] * (ABNORMAL) HEMAGRAM AND DIFFERENTIAL (09/09/2005 17:52 EST) WBC 4.55 4.0 - 12.4 K/cmm [facility] RBC 4.13 3.86 - 5.04 M/cmm [facility] Hemoglobin 12.5 11.6 - 15.2 gm/dl [facility] HCT 34.3(L) 34.9 - 44.4 % [facility] MCV 83 81 - 98 fl [facility] MCH 30.2 26.7 - 33.3 pg [facility] MCHC 36.4(H) 32.1 - 35.9 gm/dl [facility] PLT 179 141 - 320 K/cmm [facility] RDW-CV 11.5(L) 11.7 - 14.6 % [facility] Comment:Performed at [place], [place] Neutrophils 72.0 45.5 - 79.7 % [facility] Comment:Performed at [place], [place] % Bands 1.0 % [facility] Lymphocytes 14.0(L) 15.0 - 46.8 % [facility] % Atyp Lymphs 2.0 % [facility] Monocytes 11.0 1.8 - 12.0 % [facility] ABS Neutrophils 3.27 2.20 - 8.85 K/cmm [facility] ABS Bands 0.05 K/cmm [facility] ABS Lymphs 0.64(L) 1.09 - 3.30 K/cmm [facility] ABS Atyp Lymphs 0.09 K/cmm [facility] ABS Monocytes 0.50 0.1 - 0.8 K/cmm [facility] RBC Morphology [facility] Type of Diff: Manual [facility] 09/09/2005 17:5 2 EST 09/09/2005 18:02 EST Yenifer Walton MD PACKAGES & D NA PROBE ORDERABLES [facility] [address] [place] [address] documented in this encounter Visit Diagnoses Not on filedocumented in this encounter
--- OUTSIDE RECORDS SUMMARY | 2024-01-26 12:56 | XMS_ITS | Encounter Summary ---
Author Organization [facility] Address [address] [place] [address] Care Team Providers Care Adjunct Latin Professor Name Role Phone None, Provider Primary Care Provider Unavailabl e Encounter Details Date Type Department Care Team (Late st Contact Info) Description 09/16/2005 Results Only [facility] Women's Services - [facility] [address] [place], [place] [address] Valorie López, YOVANY [address] [facility] 4 [place] [address] Social History Tobacco Use Types Packs/Day Years Used Date Smoking Tobacco: Never Assessed Sex and Gender Information Value Date Recorded Sex Assigned at Not on file Gender Identity Female 02/24/2020 22:01 EDT Sexual Orientation Not on file documented as of this encounter Plan of Treatment Upcoming Encounters Date Type Department Care Team (Late st Contact Info) Description 01/31/2024 10:15 EDT Telemedicine [facility] Neurology - S [address] [id number] Med Maldonado MD [address] [place] [address] 2 [place] [phone] 08/31/2024 9:40 EST Appointment Naz Perez [address] [address] documented as of this encounter Procedures Procedure Name Priority Date/Time Associated Diagnosis Comments HPV DETECTION, HIGH RISK TYPES Routine 09/16/2005 14:39 EST CYTOPATHOLOGY Routine 09/16/2005 0:00 EST documented in this encounter Results * HUMAN PAPILLOMA VIRUS DNA TEST (09/16/2005 14:39 EST) Specimen Description Cervix, ThinPrep vial [facility] Result Positive for one or more of HPV types 16,18,31,33,35 ,39,45,51,52,5 6,58,59, or 68. These high/intermedi ate risk HPV types are associated with dysplasia and some cervical cancers. [facility] Report Status Final [id number] [facility] 09/16/2005 14:3 9 EST 09/22/2005 14:39 EST Valorie López NP MICROBIOLOGY - GE NERAL ORDERABLES [facility] [address] [place] [address] * CYTOPATHOLOGY (09/16/2005 0:00 EST) Pathology Report: CYTOPATHOLOGY REPORT Reports generated via electronic interface contain original data; however they are lacking the format of the original report. Caution should be taken when reading/interpreti ng unformatted reports. Name: ? YOLETTE HOUSE ? Accession #: ? [id number] : ? 1980 (Age: 24) ??F ?Collect Date: ? 09/16/2005 Location: ? [facility] ? Receive Date: ? 09/19/2005 Provider: ?VALORIE LÓPEZ ANP Copy to: ? Specimen/Source: ?ThinPrep Pap Test, Endocervix, processed on [employer] ThinPrep Imaging System, with manual evaluation Last Menstrual Period: ? 09/03/05 Hormonal/Contracep tive Status: ? Control Pills Other: ? HPVDX - HPV testing requested regardless of diagnosis on current ThinPrep Pap test. ? SPECIMEN ADEQUACY ? Satisfactory for Evaluation - transformation zone component present GENERAL CATEGORIZATION ? Epithelial Cell Abnormality INTERPRETATION ? Squamous Cell Abnormality - Atypical squamous cells, undetermined significance. EDUCATIONAL NOTES/RECOMMENDATI ONS ? [facility] recommends following the 2001 Consensus Guidelines for the Management of Women with Cervical Cytological Abnormalities (JIMENA,2002;287:212 0-9). Management algorithms have been distributed by [facility] and are available online at www.ASCCP.org. ? Document reviewed and electronically signed by: ? JACK FLOR MD ? Report Date: ??09/22/2005 09:15 End of Report [facility] 09/16/2005 09/19/2005 Valorie López TEAM PRIMARY CARE PHYSICIAN PATHOLOGY ORDERAB LES [facility] [address] [place] [address] documented in this encounter Visit Diagnoses Not on filedocumented in this encounter Care Teams Adjunct Latin Professor Relationship Specialty Start Date End Date None, Provider PCP - General 03/03/09 07/18/11 documented as of this encounter
--- OUTSIDE RECORDS SUMMARY | 2024-01-26 12:56 | XMS_ITS | Encounter Summary ---
Author Organization [facility] Address [address] [place] [address] Care Team Providers Care Wire Twister Name Role Phone Unavailable Primary Care Provider Unavailabl e Encounter Details Date Type Department Care Team (Late st Contact Info) Description 09/16/2005 10:48 EST - 09/16/2005 11:59 EST Hospital Encounter [facility] - Maple [facility] [address] [place] [address] Valorie Flores NP 111 [facility] 4 [place] [phone] Discharge Disposition: Auto Discharge Social History Tobacco [...] Contact Info) Description 01/31/2024 10:15 EDT Telemedicine [facility] Neurology - S [address] [address] Med Maldonado MD [address] [place] [address] 2 [place] [phone] 08/31/2024 9:40 EST Appointment Naz Perez [place] [address] [place] [address] documented as of this encounter Visit Diagnoses Not on filedocumented in this encounter
--- OUTSIDE RECORDS SUMMARY | 2024-01-26 12:56 | XMS_ITS | Encounter Summary ---
Author Organization [facility] Address [address] [place] [address] Care Team Providers Care Teacher Dancing Name Role Phone None, Provider Primary Care Provider Unavailabl e Encounter Details Date Type Department Care Team (Late st Contact Info) Description 12/13/2005 Results Only [facility] Women's Services - [facility] [address], [place] [address] Evelyn Collier FNP Social History Tobacco Use Types Packs/Day Years Used Date Smoking Tobacco: Never Assessed Sex and Gender Information Value Date Recorded Sex Assigned at Not on file Gender Identity Female 02/24/2020 22:01 EDT Sexual Orientation Not on file documented as of this encounter Plan of Treatment Upcoming Encounters Date Type Department Care Team (Late st Contact Info) Description 01/31/2024 10:15 EDT Telemedicine [facility] Neurology - [address] [place] [address] [place], [place] [address] Med Maldonado MD 1 [facility], Level 2 [place] [phone] 08/31/2024 9:40 EST Appointment Naz Perez [address] [phone] documented as of this encounter Procedures Procedure Name Priority Date/Time Associated Diagnosis Comments CYTOPATHOLOGY Routine 12/13/2005 0:00 EDT SURGICAL PATHOLOGY Routine 12/13/2005 0:00 EDT documented in this encounter Results * CYTOPATHOLOGY (12/13/2005 0:00 EDT) Pathology Report: CYTOPATHOLOGY REPORT Reports generated via electronic interface contain original data; however they are lacking the format of the original report. Caution should be taken when reading/interpreti ng unformatted reports. Name: ? YOLETTE HOUSE ? Accession #: ? [id number] : ? 1980 (Age: 25) ??F ?Collect Date: ? 12/13/2005 Location: ? [facility] ? Receive Date: ? 12/14/2005 Provider: ?EVELYN COLLIER [facility] Copy to: ? Specimen/Source: ?ThinPrep Pap Test, Cervix/Endocervix, processed on [employer] ThinPrep Imaging System, with manual evaluation Last Menstrual Period: ? 12/06/05 Hormonal/Contracep tive Status: ? Oral contraceptives Other: ? Colposcopy Pap and/or biopsy in progress ? SPECIMEN ADEQUACY ? Satisfactory for Evaluation - transformation zone component present GENERAL CATEGORIZATION ? Negative for Intraepithelial Lesion or Malignancy INTERPRETATION ? Fungal organisms present morphologically consistent with Milka species. ? Document reviewed and electronically signed by: ? JANIE RAGSDALE [facility] ? Report Date: ??12/20/2005 10:04 End of Report [facility] 12/13/2005 12/14/[address] [facility] PATHOLOGY ORDERABLES [facility] [address] [place] [address] * SURGICAL PATHOLOGY (12/13/2005 0:00 EDT) Pathology Report: SURGICAL PATHOLOGY REPORT Reports generated via electronic interface contain original data; however they are lacking the format of the original report. Caution should be taken when reading/interpreti ng unformatted reports. Name: ? YOLETTE HOUSE ? Accession #: ? [id number] ? : ? 1980 (Age: 25) ??F ? Collect Date: ? 12/13/2005 ? Location: ? [facility] ? Receive Date: ? 12/14/2005 ? Provider: EVELYN COLLIER [facility] Copy to: ? Final Pathologic Diagnosis: ? Endocervix, curettage: 1. ?Benign endocervical glandular epithelium with no specific histopathologic diagnosis. 2. ?No dysplasia. Document reviewed and electronically signed by: Quinton Sanders MD Report ??Date: 12/15/2005 15:13 By the signature above, the attending physician certifies that he/she has personally conducted a gross and/or microscopic examination of the described specimens and rendered or confirmed the above diagnosis. Specimen(s) Received: ? ECC Clinical History: ? Colpo ASC-US, + HR type, LMP: 12/06/05; clinical diagnosis code: 795.01 Gross Description: ? Received in formalin labelled Lacy and ECC are multiple pieces of au-pink and hemorrhagic, mucinous tissue measuring in aggregate 1.1 x 1.1 x 0.2 cm. ??The specimen is entirely submitted in one cassette following filtration. (Jcarlos Deluna -)/[facility] End of Report [facility] 12/13/2005 12/14/2005 9:2 1 EDT Evelyn BUNDY PATHOLOGY ORDERABLES [facility] [address] [place] [address] documented in this encounter Visit Diagnoses Not on filedocumented in this encounter Care Teams Teacher Dancing Relationship Specialty Start Date End Date None, Provider PCP - General 03/03/09 07/18/11 documented as of this encounter
--- OUTSIDE RECORDS SUMMARY | 2024-01-26 12:56 | XMS_ITS ---
Author Organization [facility] [place] [address] Care Team Providers Care Communications Department Chair Name Role Phone Angelic Silva APRN Primary Care Provider [phone] [phone] Transplant Episode Kidney Potential Donor [facility] ([place], [place]) - [facility] Referred on 12/29/2021 Marked as Ineligible on 01/06/2022 Reason: Unable to Contact Patient Kidney CoordinatorLuda Shahid RN Phone: N/A Fax: N/A Email: N/A Care Team Name Role Phone Fax Email Luda Shahid RN Kidney Coordinator N/A N/A N /A Events Pre-Donation Referred: 12/29/2021
--- OUTSIDE RECORDS SUMMARY | 2024-01-26 12:56 | XMS_ITS | Encounter Summary ---
Author Organization [facility] Address [address] [place] [address] Care Team Providers Care Entertainment Musician Name Role Phone None, Provider Primary Care Provider Unavailabl e Encounter Details Date Type Department Care Team (Late st Contact Info) Description 06/29/2005 Office Visit [facility] - [place] [facility] [address] [place] [address] Yenifer Walton MD 1 [facility] [address] [place] [phone] Social History Tobacco Use Types Packs/Day Years Used Date Smoking Tobacco: Never Assessed Sex and Gender Information Value Date Recorded Sex Assigned at Not on file Gender Identity Female 02/24/2020 22:01 EDT Sexual Orientation Not on file documented as of this encounter Progress Notes * Yenifer Walton MD - 09/10/2009 1313 EST Care Center - Physician Summary Registration Date/Time: 06/29/2005 15:13 AMMENDED REPORT - SEE ADDENDA BELOW Time Seen: 15:26 . Arrived- By private vehicle. Historian - patient. HISTORY OF PRESENT ILLNESS Chief complaint- ABDOMINAL PAIN. It is described as pain, sharp, burning and diffuse and it is described as located in the right flank, in the upper abdomen and in the pelvic area. At its maximum, severity described as severe and 10 / 10. When seen in the E.D., severity described as 8 / 10.Modifying factors - worsened by movement (relieved by certain movements). She has had nausea. The patient has had vomiting (today). The vomiting has occurred only once. She has had diarrhea (2 days ago). REVIEW OF SYSTEMS The patient has missed periods (last month. Took urine test 2 - 3 weeks ago and was negative). She has had back pain ( right back pain). No constipation, difficulty with urination, pain with urination, urinary frequency or abnormal bleeding. No fever, chest pain, difficulty breathing, skin rash or chills. Denies abnormal vaginal discharge. PAST HISTORY See nurses notes. Medications: OCPs. Allergies: No known drug allergies. FAMILY HISTORY History of gall bladder problems (mother). ADDITIONAL NOTES The nursing notes have been reviewed. PHYSICAL EXAM Appearance: Alert. No acute distress. Vital Signs: Have been reviewed - Eyes: Pupils equal, round and reactive to light. ENT: Pharynx normal. Neck: Normal inspection. Neck supple. CVS: Normal heart rate and rhythm. Heart sounds normal. Respiratory: No respiratory distress. Breath sounds normal. Abdomen: Mild tenderness in the upper abdomen and suprapubic area. No guarding or rebound tenderness. Abdomen soft. The bowel sounds are not abnormal. No abdominal distention or mass present. Back: Normal inspection. No CVA tenderness. : Normal external exam. Speculum exam normal. Moderate right adnexal tenderness. No right adnexalfullness or mass. No left adnexal tenderness.No uterine tenderness. No cervical motion tenderness. Skin: Normal skin color. Extremities: Extremities exhibit normal ROM. Neuro: Oriented X 3. LABS, X-RAYS, AND EKG Urinalysis: Urine dipstick positive for ketones (weakly positive). Urine dipstick negative for blood, leukocyte esterase, nitrite, glucose and protein. Urine dipstick negative for bilirubin. HCG: Urine HCG negative - PROGRESS AND PROCEDURES E.D. Course: The patient's care was transferred to Dr. Lacy Sams. Please see her notes for the remainder of the patient's workup, diagnosis, and discharge plan. (Electronically signed by Yenifer Walton MD 06/30/2005 9:33) Time Seen: 15:26 . Arrived- By private vehicle. Historian - patient. HISTORY OF PRESENT ILLNESS Chief complaint- ABDOMINAL PAIN. It is described as pain, sharp, burning and diffuse and it is described as located in the right flank, in the upper abdomen and in the pelvic area. At its maximum, severity described as severe and 10 / 10. When seen in the E.D., severity described as 8 / 10. Modifying factors - worsened by movement (relieved by certain movements. Tried Tums). Not relieved by antacids. She has had nausea. The patient has had vomiting (today). The vomiting has occurred only once. She has had diarrhea (2 days ago). (EN: Pain is intermittent and burning, occ into chest. She had not noted pelvic pain, only had painon exam.). REVIEW OF SYSTEMS The patient has missed periods (last month. Took urine test 2 - 3 weeks ago and was negative). She has had back pain ( right back pain). No constipation, difficulty with urination, pain with urination, urinary frequency or abnormal bleeding. No fever, chest pain, difficulty breathing, skin rash or chills. Denies abnormal vaginal discharge. PAST HISTORY See nurses notes. Medications: OCPs. Allergies: No known drug allergies. FAMILY HISTORY History of gall bladder problems (mother). ADDITIONAL NOTES The nursing notes have been reviewed. PHYSICAL EXAM Appearance: Alert. No acute distress. Vital Signs: Have been reviewed - Eyes: Pupilsequal, round and reactive to light. ENT: Pharynx normal. Neck: Normal inspection. Neck supple. CVS: Normal heart rate and rhythm. Heart sounds normal. Respiratory: No respiratory distress. Breath soundsnormal. Abdomen: Mild tenderness in the upper abdomen and suprapubic area. No guarding or rebound tenderness. Abdomen soft. The bowel sounds are not abnormal. No abdominal distention or mass present. Back: Normal inspection. No CVA tenderness. : Normal external exam. Speculum exam normal. Moderate right adnexal tenderness. No right adnexalfullness or mass. No left adnexal tenderness. No uterine tenderness. No cervical motion tenderness. Skin: Normal skin color. Extremities: Extremities exhibit normal ROM. Neuro: Oriented X 3. LABS, X-RAYS, AND EKG CBC: WBC 9.400 - Urinalysis: Urine dipstick positive for ketones (weakly positive). Urine dipstick negative for blood, leukocyte esterase, nitrite, glucose and protein. Urine dipstick negative for bilirubin. HCG: Urine HCG negative - PROGRESS AND PROCEDURES E.D. Course: 17:57. After GI Cocktail, S: No improvement after meds. Pain still coming and going. O: NAD, moves easily, lips dry, increasedBS, Soft. Mildly tender epigastric area without guarding. A:Probably GE. P: See D/C. CLINICAL IMPRESSION Acute abdominal pain . Possible gastroenteritis . INSTRUCTIONS Frequent sips only until better. Warnings: GENERAL WARNINGS: Return or contact your physician immediately if your condition worsens or changesunexpectedly, if not improving as expected, or if other problems arise. Or if no better by Monday morning. Prescription Medications: Phenergan 25 mg tablets: take 1 orally every 4 hours as needed for nausea. Dispense ten (10). No refill. Generic substitute OK. Pepcid 10 mg: take 1 orally every 12 hours (until better (over the counter medicine) or RAnitidine (Zantac 75mg) 1 pill twice a day). Follow-up: Follow up with your doctor Monday if not better. (Electronically signed by Lacy Sams M.D. 06/29/2005 20:40) Addenda for YOLETTE HOUSE VisitID: [id number] Date: 06/29/2005 06/30/2005 21:20 GC/Chlamydia neg. Please send letter signed by Whit Simpson N.P. - 06/30/2005 21:20) 07/02/2005 14:13 Dear , Below are the results of your recent tests, performed at the [facility], for the followingsexually transmitted illnesses: TestResultComment ChlamydiaNegative GonorrheaNegative Hepatitis B Hepatitis C Herpes HIV Syphilis Comments: Please feel free to contact us at with any questions or concerns. Sincerely, Ramila Fitzpatrick RN signed by Ramila Fitzpatrick R.N. - 07/02/2005 14:13) 07/13/2005 13:47 Pap smear from 06/29 reveals epithelial cell abnormality. Valorie Flores NP called [facility] because the patient had called requesting a refill of control pills. Valorie noted that the pap smear result was abnormal. I attempted to call the patient at home and I left a message on her answering machine asking her to call us back to receive test results. The plan is to tell her that her pap smear was abnormal and that she needs to have a repeat pap smear with Valorie Flores in 3 months. Valorie will refill her OCPs for 3 months only so that she will return for the repeat pap test. signed by Yenifer Walton MD - 07/13/2005 13:47) 07/14/2005 20:05 I called the patient marielle and explained that her pap smear was abnormal. I explained that I spoke with Valorie Flores about this. The patient was told that she should have a repeat pap smear in 3 months and that she should call Valorie tomorrow to discuss this abnormal result given that Valorie will be following her. The patient expressed understanding and said that she would call Valorie tomorrow regarding the abnormal result and appropriate followup. signedby Yenifer Walton MD - 07/14/2005 20:05) Care Center - Nursing Summary Registration Date/Time: 06/29/2005 15:13 TRIAGE Initial Assessment Triage time 15:21 . BP: 108 / 70 sitting. HR: 72 regular. RR: 18. --152 Katy Singh, Temp: 98.1 oral.--1608 Afua Moore, . Medications control pills - --Elsie Katy Singh, . Allergies No history of allergy to LATEX. No known drug allergies. --152 Katy Singh, . History Chief Complaint: ( intermittent epigastric pain , onset 06/27 n& v X's 1 this am, diarrhea onceon 06/27). Pain level now: 02/16. 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 ( tums). PAST HX: No history of previous surgery. Last normal menstrual period now - no period last month. SOCIAL HX: Nonsmoker. Arrived by private vehicle and accompanied by friend. --Nioxn Singh. PHYSICAL ASSESSMENT Ambulatory to room. Alert. Appears in no acute distress. Oriented X 3. The patient is in mild distress. Skin is warm. --Huber Singh. NURSING PROGRESS NOTES Progress Patient gowned. Call light placed in reach. --1530 Katy Singh, ( report given to Jevon Brownlee LPN). --1604 Katy Singh, Blood samples drawn by nurse per protocol and sent to lab: purple and tiger top. ( Pt verified nameand birthdate prior tolab draw). --1648 Laurita Blake L.P.N. Procedure. Specimens collected and sent to lab: GC, chlamydia and wet prep. ( collected by Dr Walton, sent to lab). --165 Lacy Parada R.N. GI COCKTAIL 45 mL composed of 15 mL viscous lidocaine and 30 mL antacid PO. . --173 Lacy Parada R.N. GI COCKTAIL mL PO. . --173 Lacy Parada R.N. ( error- GI cocktail given x1 only). --173 Lacy Parada R.N. DISPOSITION / DISCHARGE Condition at departure: improved. No learning barriers present. Discharge instructions reviewed with the patient. Reviewed medication side effects and dosing; prescription (s) given to the patient (phenergan). Reviewed instructions (viral gastroenteritis). Reviewed clear liquid diet (x 24 hours). Work note given. Patient verbalized understanding. Written instructions provided in Greek. ( Pt to f/u withPCP on Monday if not better). The patient was discharged home and accompanied by spouse and family. The patient left the Emergency Department ambulatory and via private vehicle. Spouse driving. Patient has no belongings. --1823 Lacy Parada R.N. Locked/Released at 07/08/2005 18:06 by Lacy Paarda R.N. documented in this encounter Plan of Treatment Upcoming Encounters Date Type Department Care Team (Late st Contact Info) Description 01/31/2024 10:15 EDT Telemedicine [facility] Neurology - [address] [address] Med Maldonado MD [address] [place] [address], [address] [place] [address] 08/31/2024 9:40 EST Appointment Naz Perez [facility] [address] [place] [address] documented as of this encounter Visit Diagnoses Not on filedocumented in this encounter Care Teams Entertainment Musician Relationship Specialty Start Date End Date None, Provider PCP - General 03/03/09 07/18/11 documented as of this encounter
--- OUTSIDE RECORDS SUMMARY | 2024-01-26 12:56 | XMS_ITS | Encounter Summary ---
[facility] [place] [address] Care Team Providers Care Stacker Operator Name Role Phone Angelic Silva APRN Primary Care Provider [phone] Encounter Details Date Type Department Care Team (Late st Contact Info) Description 12/31/2021 Telephone [place] [phone] Geovani Pastor APRN [facility] [place] [address] Social History Tobacco Use Types Packs/Day Years Used Date Smoking Tobacco: Never Assessed Sex and Gender Information Value Date Recorded Sex Assigned at Not on file Gender Identity Not on file Sexual Orientation Not on file documented as of this encounter Miscellaneous Notes * Telephone Encounter - Geovani Pastor APRN - 12/31/2021 3:10 PM EDT TC to patient to review Visual Inspector survey. She is at work and asked if she could call me back later this afternoon. I will await her call. documented in this encounter Plan of Treatment Not on file documented as of this encounter Visit Diagnoses Not on filedocumented in this encounter Care Teams Stacker Operator Relationship Specialty Start Date End Date Angelic Silva APRN [address] [place] [address] PCP - General Family Medicine 05/26/16 documented as of this encounter
--- OUTSIDE RECORDS SUMMARY | 2024-01-26 12:56 | XMS_ITS | Encounter Summary ---
Author Organization [facility] Address [address] [place] [address] Care Team Providers Care Ophthalmology Technician Name Role Phone Unavailable Primary Care Provider Unavailabl e Encounter Details Date Type Department Care Team (Late st Contact Info) Description 06/04/2003 15:37 EST Hospital Encounter [facility] Center - Other [address] [place] [address] Valorie López NP 111 [facility], [facility] [address] [place] [address] Social History Tobacco Use Types [...] Description 01/31/2024 10:15 EDT Telemedicine [facility] Neurology - [address] [place] [address] [place], [place] [phone] Med Maldonado MD 1 [facility], [address] [place] [address] 08/31/2024 9:40 EST Appointment Naz Perez [phone] [place], [place] [id number] documented as of this encounter Procedures Procedure Name Priority Date/Time Associated Diagnosis Comments N. GONORRHOEAE AMPLIFIED PROBE Routine 06/04/2003 21:50 EST ZZCHLAMYDIA TRACHOMATIS AMPLIFIED PROBE Routine 06/04/2003 21:50 EST CYTOPATHOLOGY Routine 06/04/2003 0:00 EST documented in this encounter Results * CHLAMYDIA TRACHOMATIS AMPLIFIED PROBE (06/04/2003 21:50 EST) Specimen Description Cervix [facility] Result No Chlamydia trachomatis DNA detected by sheriff deputy mediated amplification. [facility] Report Status Final [id number] [facility] 06/04/2003 21:5 0 EST 06/04/2003 21:50 EST Valorie López NP MICROBIOLOGY - GE NERAL ORDERABLES [facility] [address] [place] [address] * N. GONORRHOEAE AMPLIFIED PROBE (06/04/2003 21:50 EST) Result No Neisseria gonorrhoeae DNA detected by sheriff deputy mediated amplification. [facility] Report Status Final [id number] [facility] Specimen Description Cervix [facility] 06/04/2003 21:5 0 EST 06/04/2003 21:50 EST Valorie López NP MICROBIOLOGY - GE NERAL ORDERABLES [facility] [address] [place] [address] * CYTOPATHOLOGY (06/04/2003 0:00 EST) Pathology Report: CYTOPATHOLOGY REPORT Reports generated via electronic interface contain original data; however they are lacking the format of the original report. Caution should be taken when reading/interpreti ng unformatted reports. Name: ? YOLETTE HOUSE ? Accession #: ? [id number] : ? 1980 (Age: 22) ??F ?Collect Date: ? 06/04/2003 Location: ? [facility] ? Receive Date: ? 06/06/2003 Provider: ?VALORIE LÓPEZ ANP Copy to: ? Specimen/Source: ?ThinPrep Pap Test, Cervix/Endocervix Last Menstrual Period: ? 06/02/03 Hormonal/Contracep tive Status: ? Control Pills Other: ? HPVA - HPV testing requested if ASC-US on the current ThinPrep Pap test. ? SPECIMEN ADEQUACY ? Satisfactory for Evaluation - transformation zone component present GENERAL CATEGORIZATION ? Negative for Intraepithelial Lesion or Malignancy ? Document reviewed and electronically signed by: ? GENESIS Perry(ASCP)(IAC) ? Report Date: ??06/10/2003 17:12 End of Report [facility] 06/04/2003 06/06/2003 Valorie López NP PATHOLOGY ORDERAB LES [facility] [address] [place] [address] documented in this encounter Visit Diagnoses Not on filedocumented in this encounter Additional Health Concerns Infection Onset Date Last Indicated Resolved Time R/O COVID-19 07/15/2020 07/15/2020 07/20/2020 22:1 7 EST documented as of this encounter
--- OUTSIDE RECORDS SUMMARY | 2024-01-26 12:56 | XMS_ITS | Encounter Summary ---
Author Organization [facility] Address [address] [place] [address] Care Team Providers Care Casino Gaming Worker Name Role Phone Unavailable Primary Care Provider Unavailabl e Encounter Details Date Type Department Care Team (Late st Contact Info) Description 03/09/2000 10:11 EDT Hospital Encounter [facility] - Other [address] [place] [address] Anabel Guerrier APRN Unknown, Provider, Social History Tobacco Use Types Packs/Day Years [...] Telemedicine [facility] Neurology - [address] [place] [address] [place], [place] [phone] Med Maldonado MD 1 [facility], [address] [place] [address] 08/31/2024 9:40 EST Appointment Naz Perez [facility] [address] [place] [address] documented as of this encounter Procedures Procedure Name Priority Date/Time Associated Diagnosis Comments GROUP A STREP CULTURE Routine 03/09/2000 18:00 EDT documented in this encounter Results * CULTURE FOR GROUP A BETA STREPTOCOCCUS (03/09/2000 18:00 EDT) Specimen Description Throat [facility] Result NO GROUP A BETA STREPTOCOCCI ISOLATED [facility] Report Status Final [id number] [facility] 03/09/2000 18:0 0 EDT 03/09/2000 21:04 EDT Anabel Guerrier APRN MICROBIOLOGY - GENER AL ORDERABLES [facility] [address] [place] [address] documented in this encounter Visit Diagnoses Not on filedocumented in this encounter Additional Health Concerns Infection Onset Date Last Indicated Resolved Time R/O COVID-19 07/15/2020 07/15/2020 07/20/2020 22:1 7 EST documented as of this encounter
--- OUTSIDE RECORDS SUMMARY | 2024-01-26 12:56 | XMS_ITS | Encounter Summary ---
Author Organization [facility] Address [address] [place] [address] Care Team Providers Care Finnish Rubber Name Role Phone Unavailable Primary Care Provider Unavailabl e Encounter Details Date Type Department Care Team (Latest Contact Info) Description 09/11/2005 21:09 EST - 09/12/2005 11:59 EST Hospital Encounter [facility] Emergency Department - Main [place] [address] [place] [address] Emergency, MD Candy Discharge Disposition: Home or Self Care Social [...] EDT Telemedicine [facility] Neurology - S [address] [id number] Med Maldonado MD [address] [place] [address], Level 2 [place] [phone] 08/31/2024 9:40 EST Appointment Naz Perez [address] [address] documented as of this encounter Procedures Procedure Name Priority Date/Time Associated Diagnosis Comments CHEST PA AND LATERAL 09/11/2005 23:48 EST documented in this encounter Results * CHEST PA AND LATERAL (09/11/2005 23:48 EST) Anatomical Region Laterality Modality Other 09/11/2005 23:4 8 EST Narrative 01/24/2009 10:38 EDT fever, vomiting, rt posterior chest wall pain r/o infiltrate PA AND LATERAL OF THE CHEST: 2342 HOURS, 09/11/2005 CLINICAL HISTORY: Fever, vomiting, right posterior chest wall pain. FINDINGS: Mild pectus excavatum is noted. ??Cardiomediastinal silhouette and pulmonary markings are normal. ??No effusion. ??The bones and soft tissues are normal for age. /tns I have personally reviewed the images and the above interpretation and agree with the findings. Procedure Note Ted Morocho DDS / Rosalie Del Toro MD - 01/24/2009 fever, vomiting, rt posterior chest wall pain r/o infiltrate PA AND LATERAL OF THE CHEST: 2342 HOURS, 09/11/2005 CLINICAL HISTORY: Fever, vomiting, right posterior chest wall pain. FINDINGS: Mild pectus excavatum is noted. Cardiomediastinal silhouette and pulmonary markings are normal. No effusion. The bones and soft tissues are normal for age. /tns I have personally reviewed the images and the above interpretation and agree with the findings. Joy EISENBERG IMEfren DIAGNOSTIC IMAGI NG ORDERABLES documented in this encounter Visit Diagnoses Not on filedocumented in this encounter
--- OUTSIDE RECORDS SUMMARY | 2024-01-26 12:56 | XMS_ITS | Encounter Summary ---
Author Organization [facility] Address [address] [place] [address] Care Team Providers Care Manager Physical Name Role Phone None, Provider Primary Care Provider Unavailabl e Encounter Details Date Type Department Care Team (Late st Contact Info) Description 06/03/2002 Results Only [facility] Women's Services - [facility] [address] [place], [place] [address] Valorie Flores, YOVANY 111 [facility] 4 [place] [address] Social History Tobacco Use Types [...] Description 01/31/2024 10:15 EDT Telemedicine [facility] Neurology - S [address] [address] Med Maldonado MD [address] [place] [address] 2 [place] [phone] 08/31/2024 9:40 EST Appointment Naz Perez [address] [address] documented as of this encounter Procedures Procedure Name Priority Date/Time Associated Diagnosis Comments N.GONORRHOEAE PROBE Routine 06/03/2002 9 :00 EST CHLAMYDIA TRACHOMATIS PROBE Routine 06/03/2002 9:00 EST documented in this encounter Results * N.GONORRHOEAE PROBE (06/03/2002 9:00 EST) Specimen Description C[facility] Result No Neisseria gonorrhoeae DNA detected by automotive design drafter mediated amplification. [facility] Report Status Final [id number] [facility] 06/03/2002 9:00 EST 06/03/2002 11:00 EST Valorie Flores STERILIZATION TECHNICIAN HISTORICAL LAB FO R SQ LOAD Performing Organization Address [facility] de Phone Number [facility] [address] [place] [address] * CHLAMYDIA TRACHOMATIS PROBE (06/03/2002 9:00 EST) Specimen Description Cervix [facility] Result No Chlamydia trachomatis DNA detected by automotive design drafter mediated amplification. [facility] Report Status Final [id number] [facility] 06/03/2002 9:00 EST 06/03/2002 11:00 EST Valorie Flores STERILIZATION TECHNICIAN HISTORICAL LAB FO R SQ LOAD Performing Organization Address [facility] Co de Phone Number [facility] [address] [place] [address] documented in this encounter Visit Diagnoses Not on filedocumented in this encounter Care Teams Manager Physical Relationship Specialty Start Date End Date None, Provider PCP - General 03/03/09 07/18/11 documented as of this encounter
--- OUTSIDE RECORDS SUMMARY | 2024-01-26 12:56 | XMS_ITS | Encounter Summary ---
Author Organization [facility] Address [address] [place] [address] Care Team Providers Care Student Services Director Name Role Phone Unavailable Primary Care Provider Unavailabl e Encounter Details Date Type Department Care Team (Late st Contact Info) Description 05/26/1999 12:50 EST Hospital Encounter [facility] - Other [address] [place] [address] Jen Gupta MD Unknown, Provider, Social History Tobacco Use Types [...] Telemedicine [facility] Neurology - S [place] [address] [place], [place] [address] Med Maldonado MD 1 [facility], Level 2 [place] [address] 08/31/2024 9:40 EST Appointment Naz Perez [address] [place] [address] documented as of this encounter Procedures Procedure Name Priority Date/Time Associated Diagnosis Comments BACTERIAL CULTURE, URINE Routine 05/26/1999 16:30 EST documented in this encounter Results * BACTERIAL CULTURE, URINE (05/26/1999 16:30 EST) Specimen Description Urine [facility] Result Less than 10,000 CFU/ml Mixed gram positive growth [facility] Report Status Final [id number] [facility] 05/26/1999 16:3 0 EST 05/26/1999 17:02 EST Jen Gupta MD MICROBIOLOGY - GENER AL ORDERABLES [facility] [address] [place] [address] documented in this encounter Visit Diagnoses Not on filedocumented in this encounter Additional Health Concerns Infection Onset Date Last Indicated Resolved Time R/O COVID-19 07/15/2020 07/15/2020 07/20/2020 22:1 7 EST documented as of this encounter
--- OUTSIDE RECORDS SUMMARY | 2024-01-26 12:56 | XMS_ITS | Clinical Summary ---
[facility] [place] [address] Care Team Providers Care Senior Construction Manager Name Role Phone Angelic Silva APRN Primary Care Provider [phone] Social History Tobacco Use Types Packs/Day Years Used Date Smoking Tobacco: Never Assessed Sex and Gender Information Value Date Recorded Sex Assigned at Not on file Gender Identity Not on file Sexual Orientation Not on file Plan of Treatment Health Maintenance Due Date Last Done Comments HIV screen 10/25/1999 Hepatitis C Screening 10/25/1999 Hepatitis B vaccine (0-59 yrs) (1) 2000 Tdap adult 2000 Tetanus vaccine 2000 HPV test 10/25/2011 PAP Smear 10/25/2011 Breast Cancer Share Decision Needed 2021 Breast Cancer screening 2021 Covid-19 Vaccine (2022-2 4 season) 2023 05/24/2021, 10/16/2020, 09/25/2020 Influenza (Flu) vaccine (1 o f 1 - Influenza standard series) 03/10/2024 Care Teams Senior Construction Manager Relationship Specialty Start Date End Date Angelic Silva APRN [address] [place] [address] PCP - General Family Medicine 05/26/16
--- OUTSIDE RECORDS SUMMARY | 2024-01-26 12:56 | XMS_ITS | Encounter Summary ---
Author Organization [facility] Address [address] [place] [address] Care Team Providers Care Family Counselor Name Role Phone None, Provider Primary Care Provider Unavailabl e Encounter Details Date Type Department Care Team (Late st Contact Info) Description 09/09/2005 Office Visit [facility] - [facility] [address] [place] [address] Yenifer Walton MD 1 [facility] Level 1 [place] [phone] Social History Tobacco Use Types Packs/Day Years Used Date Smoking Tobacco: Never Assessed Sex and Gender Information Value Date Recorded Sex Assigned at Not on file Gender Identity Female 02/24/2020 22:01 EDT Sexual Orientation Not on file documented as of this encounter Progress Notes * Yenifer Walton MD - 09/02/2009 1818 EST Care Center - Physician Summary Registration Date/Time: 09/09/2005 17:01 Arrived- By private vehicle. Historian - patient and mother (is with the patient). HISTORY OF PRESENT ILLNESS Chief Complaint: VOMITING. This started 4 days ago and is still present (now with dry heaving). Recent travel (went to [place] last week). The patient has had nausea and vomiting. She has had mild, crampy, intermittent abdominal pain. No diarrhea, black stools, constipation or flank pain. The illness is described as severe. (No ill exposures known). Patient has not had similar symptoms previously. Not recently seen/assessed. REVIEW OF SYSTEMS The patient has had a subjective fever. She has had muscle aches and a headache, sore throat and moderate cough. She has had when standing dizziness. She has had chest pain ( with cough). No difficulty with urination, missed periods, difficulty breathing, jaundice or back pain. No dark urine (decreased urination). Menstruating currently. All systems otherwise negative, except as recorded above. PAST HISTORY Negative. See nurses notes. Medications: See nurses notes. ( OCPs). Allergies: No known drug allergies. See nurses notes. SOCIAL HISTORY Nonsmoker. No alcohol use. ADDITIONAL NOTES The nursing notes have been reviewed. PHYSICAL EXAM Appearance: Alert. Oriented X3. Patient in mild distress. ( appears tired). Vital Signs: Have been reviewed - Eyes: Pupils equal, round and reactive to light. Eyes normal inspection. No scleral icterus. ENT: Moderately dry mucous membranes present. Pharynx normal. Neck: Normal inspection. Neck supple. CVS: Tachycardia (mild). Heart sounds normal. Respiratory: No respiratory distress. Breath sounds normal. Abdomen: soft and nontender. Back: Normal inspection. Skin: Normal skin color. Skin warm and dry. ( faint macularpapular rash on bilateral upper extremities and chest that faded by the time of discharge. Pt had not noted.). Extremities: Extremities exhibit normal ROM. No lower extremity edema. Neuro: Oriented X 3. No motor deficit. No sensory deficit. LABS, X-RAYS, AND EKG Laboratory Tests: ( monotest- negative). CBC: WBC 4.55 -. Segs 72 %. Bands 1 %. Lymphs 14 %. Monos 11 %. HCT 34.3. Platelets 179 -. 2% atypical lymphs. Chemistries: Basic Metabolic Panel (Chem 8) - normal. Cr - 0.5. Bilirubin: 2.3. AST 356. ALT 235. Alkaline phosphatase normal 119. Lipase normal. Urinalysis: No WBCs present. RBCs present (1 - 5). No bacteria present. Urine dipstick positive forketones (strongly positive) and moderate blood. HCG: Urine HCG negative - PROGRESS AND PROCEDURES E.D. Course: The patient was given 3 Liters of fluid, 4mg IV zofran and tylenol with improvement inher symptoms. She still had a moderate headache at the time of discharge so she was given #2 vicodin 5mg to take at home if the headache was still present. Given her LFT elevation she was told to return on Monday for reevaluation and to have a recheck of LFT's. Would also check hepatitis A, B, and C at that time as this was not done today. (Doubt Hep A given no diarrhea and only moderate elevation in LFT's and doubt Hep B or C given no risk factors). Monospot negative. Patient/family counseled. Disposition: Discharged home. Condition: stable. CLINICAL IMPRESSION Vomiting . Abdominal pain . Viral syndrome . Headache. INSTRUCTIONS Do notwork (Yolette House was seen on 09/09/05 and should not work on Mon, 09/10 or Monday 09/11. ). Do not go to school (Yolette House was seen on 09/09/05 and should not attend classes on Monday, 09/12. ).Drink plenty of fluids. Please return on Monday morning at 9AM for reevaluation. We will do anotherblood draw to check your liver tests. Please return sooner if you are worse over the weekend such as continued vomitting, fever, abdominal pain or general worsening. Warnings: GENERAL WARNINGS: Return or contact your physician immediately if your condition worsens or changesunexpectedly, if not improving as expected, or if other problems arise. Prescription Medications: Phenergan 12.5 mg tablets: take 1 orally every 6 hours as needed for nausea. Dispense ten (10). No refill. Vicodin 5 mg ([address] [facility]. Take 1 every 6 hours as needed for headache). (Electronically signed by Yenifer Walton MD 09/11/2005 19:10) Addenda for YOLETTE HOUSE VisitID: [id number] Date: 09/09/2005 09/09/2005 20:17 IV was discontinued prior to d/c from [facility] without redness, pain. Dressing applied. signed by Valorie Andino - 09/09/2005 20:17) 09/10/2005 11:04 I spoke with the patient this AM. She states that overall she feels better without vomitting, feverbut the headache still persists. She was able to sleep last night after taking vicodin. The rash has returned over the abdomen and arms, nonpruritic. Denies neck stiffness. I told her to take 2 adviland if after a couple of hours the headache was still bothering her to vidocin, 1 tablet. I gave her warnings to return this weekend if she did feel worse and to come to [facility] on Monday no matter whatfor further bloodwork. Would check Hep serologies, IgM and IgG CMV and IgM and IgG EBV as well as recheck LFT's at that time. signed by Yenifer Walton MD - 09/10/2005 11:04) Care Center - Nursing Summary Registration Date/Time: 09/09/2005 17:01 TRIAGE Initial Assessment Triage time 17:35. --1734 Juanjose DemarcoPFelipeN. RR: 20. Temp: 98.9. Orthostatics: lying - BP 110 / 80 HR 80 standing - 108 / 80 HR 116. Patient experienced dizziness upon standing. --1742 Juanjose DemarcoPFelipeN. Medications None. --1742 Juanjose DemarcoP.N. No known drug allergies. --1742 Vane Nava L.P.NFelipe History Arrived by private vehicle. --1734 Juanjose DemarcoPFelipeNFelipe Chief Complaint: FEVER, HEADACHE, NAUSEA and VOMITING. Onset- about 4 days ago. Pain level now: 10. PAST HX: Negative. No history of previous surgery. Immunizations: up-to-date. SOCIAL HX: Nonsmoker. No alcohol use. --1742 Juanjose DemarcoPFelipeNFelipe ( pt has vomited x 1 today). --1742 Juanjose DemarcoPFelipeNFelipe PHYSICAL ASSESSMENT Appears in pain. The patient is in mild distress. Respirations not labored. Mild abdominal tenderness in the periumbilical area and suprapubic area. Mucus membranes are mildly dry. Skin is pale. Skinis cool. --1744 Vane Nava L.P.N. NURSING PROGRESS NOTES Progress Patient gowned. Head of bed elevated. Call light placed in reach. Bed placed in lowest position. --1742 Vane Nava L.P.N. Patient ready for evaluation - chart flagged and ED physician notified. --1744 Vane Nava L.P.N. Checked patient name and birthdate. IV started: #1 site, left antecubital space, 20g angiocath, using aseptic technique, with good blood return; one attempt. Saline lock placed; flushed with 5 mL saline; fluid - 1000 mL bag NS infusing; rate = wide open. Blood samples drawn from the peripheral IV site (prior to IV fluid start) by nurse per protocol and sent to lab: [facility] and tiger [facility]. --1815 Vane Nava L.P.N. Patient identifiers checked. ZOFRAN 4 mg slow IVP over 5 minutes. IV patency established. Site checked: no pain, redness, or swelling. Flushed thoroughly pre- and post-medication administration. Bed placed in lowest position. --1826 Jewel Swanson R.N. TYLENOL 325 mg X 3 tab PO. . --1840 Vane Nava L.P.N. Reassessment after (Bag # 2 NS 1000cc up). --1840 Vane Nava L.P.N. Reassessment after fluids administered, intervention and medication administered. Thepatient is sleeping. --1912 Vane Nava L.P.N. Overall patient status - the patient states feels better (a little better, per pt Bag # 3 NS 1000ccup). --1916 Vane Nava L.P.N. ( urine obtained for dipstick- large amount ofblood (menses), ketones greater than or = to 80 - physician shown results). --1953 Valorie Andino, VICODIN 5 mg two tablets togo PO. Sedative drug warning given to the patient and family. Pre-procedure time-out completed: verifiedidentity of patient (name and birthdate). . --2005 Andreia Carmona L.P.N. DISPOSITION / DISCHARGE Condition at departure: stable. No learning barriers present. Discharge instructions reviewed with the patient. Reviewed warnings (return to [facility] if condition worsens). --2011 Valorie Andino, Reviewed medication (Vicodin 2 tabs given to patient to take at home). --2013 Valorie Andino, Reviewed medication (Phenergan 12.5 mg po prescription given to patient). --2014 Valorie Andino, Activity restrictions (rest) reviewed. Patient and parent verbalized understanding. Written instructions provided in Cameroonian. The patient was discharged home and accompanied by parent. The patient left the Emergency Department ambulatory and via private vehicle. Parent driving. --2014 Valorie Andino. Locked/Released at 09/09/2005 20:17 by Valorie Andino, documented in this encounter Plan of Treatment Upcoming Encounters Date Type Department Care Team (Late st Contact Info) Description 01/31/2024 10:15 EDT Telemedicine [facility] Neurology - S [address] [id number] Med Maldonado MD [address] [place] [address], Level 2 [place] [phone] 08/31/2024 9:40 EST Appointment Naz Perez [address] [phone] documented as of this encounter Visit Diagnoses Not on filedocumented in this encounter Care Teams Family Counselor Relationship Specialty Start Date End Date None, Provider PCP - General 03/03/09 07/18/11 documented as of this encounter
--- OUTSIDE RECORDS SUMMARY | 2024-01-26 12:56 | XMS_ITS | Encounter Summary ---
[place] [address] Care Team Providers Care Instructional Supervisor Name Role Phone Angelic Silva AIRCRAFT COMMUNICATOR Primary Care Provider [phone] Encounter Details Date Type Department Care Team (Late st Contact Info) Description 12/29/2021 Telephone [place] [phone] Elly Matthew Social History Tobacco Use Types Packs/Day Years Used Date Smoking Tobacco: Never Assessed Sex and Gender Information Value Date Recorded Sex Assigned at Not on file Gender Identity Not on file Sexual Orientation Not on file documented as of this encounter Miscellaneous Notes * Telephone Encounter - Elly Mtathew - 12/29/2021 8:23 AM EDT First Name Yolette Rico Sydnie Ishan Last Name Rosalinda Address [address] [place] [address] Best time to call Evenings Email Address [email or web address] Date of 1980 Age [id number] Gender Female Height in inches 70 Weight in pounds 200 Body Mass Index (BMI) 29 Who would you like to donate to? Jesus Collins What is your relation to your donor? Friend if his Daugter in law What is your Blood type? Who is your Primary Care Physician (PCP)? [facility] Michelle Conley When was your last physical exam? 10-17-2021 Date of your last Mammogram Na Date of your last PAP smear Unknown Date of your last colonoscopy Na Current No BMI greater than 35 No Active infection No High blood pressure under the age of 50 No High blood pressure over the age of 50 on more than 1 medication No Kidney stones within the past 10 years No Human Immunodeficiency Virus (HIV) No Under the age of 21 No Diabetes No Current cancer diagnosis No Mental health diagnosis Yes Please list your medical problems Susan Dalios, small neuropathy, fat pad atrophy Have you ever had surgery? Knee surgery 2011 Please list your medications Modafinil 200 MG Tab take 1 to ?? by mouth daily for Narcolepsy, Omeprazole 40 mg tab For stomach, Escitalopram oxalate 20 MG Tab for Depression anxiety, Montelukast sodium 10 MG Tab for hay Fever Allergies, Heartburn Relief Maximum 20 MG, Allergy Relief 10 MG, 360 Nac 600 MG x4, As needed: Meclizine 25 MG Sumatriptan 50 MG, Supplements: TerraZyme DigestZen from [employer], tagWALLET- Women's Care Probiotic, One a Day- women's Please list any allergies you have Seasonal documented in this encounter Plan of Treatment Not on file documented as of this encounter Visit Diagnoses Not on filedocumented in this encounter Care Teams Instructional Supervisor Relationship Specialty Start Date End Date Angelic Silva APRN [address] [place] [address] PCP - General Family Medicine 05/26/16 documented as of this encounter
--- OUTSIDE RECORDS SUMMARY | 2024-01-26 12:56 | XMS_ITS | Encounter Summary ---
Author Organization [facility] Address [address] [place] [address] Care Team Providers Care Lens Inspector Name Role Phone Unavailable Primary Care Provider Unavailabl e Encounter Details Date Type Department Care Team (Late st Contact Info) Description 06/28/2004 10:13 [facility] Hospital Encounter [facility] - Other [address] [place] [address] Valorie Flores NP 111 [facility] 4 [place] [address] Social History Tobacco Use Types [...] Telemedicine [facility] Neurology - S [place] [address] [place], [place] [phone] Med Maldonado MD [address] [place] [address], Level [address] [place] [phone] 08/31/2024 9:40 EST Appointment Naz Perez [address] [phone] documented as of this encounter Visit Diagnoses Not on filedocumented in this encounter Additional Health Concerns Infection Onset Date Last Indicated Resolved Time R/O COVID-19 07/15/2020 07/15/2020 07/20/2020 22:1 7 EST documented as of this encounter
--- OUTSIDE RECORDS SUMMARY | 2024-01-26 12:56 | XMS_ITS | Encounter Summary ---
Author Organization [facility] Address [address] [place] [address] Care Team Providers Care Leather Seasoner Name Role Phone Unavailable Primary Care Provider Unavailabl e Encounter Details Date Type Department Care Team (Late st Contact Info) Description 07/05/2006 17:28 [facility] Hospital Encounter [facility] - [place] [address] [place] [address] Valorie Flores NP 111 [facility] 4 [place] [phone] Discharge Disposition: Auto Discharge Social History Tobacco [...] EDT Telemedicine [facility] Neurology - S [address] [phone] Med Maldonado MD [address] [place] [address] 2 [place] [phone] 08/31/2024 9:40 EST Appointment Naz Perez [facility] [address] [place] [address] documented as of this encounter Procedures Procedure Name Priority Date/Time Associated Diagnosis Comments N. GONORRHOEAE AMPLIFIED PROBE Routine 07/05/2006 11:13 EST ZZCHLAMYDIA TRACHOMATIS AMPLIFIED PROBE Routine 07/05/2006 11:13 EST documented in this encounter Results * N. GONORRHOEAE AMPLIFIED PROBE (07/05/2006 11:13 EST) Result No Neisseria gonorrhoeae DNA detected by campus executive director mediated amplification. [facility] Report Status Final [id number] [facility] Specimen Description Cervix [facility] 07/05/2006 11:1 3 EST 07/06/2006 11:13 EST Valorie Flores PARK AIDE MICROBIOLOGY - GE NERAL ORDERABLES Performing Organization Address [facility] Co de Phone Number [facility] [address] [place] [address] * CHLAMYDIA TRACHOMATIS AMPLIFIED PROBE (07/05/2006 11:13 EST) Specimen Description Cervix [facility] Result No Chlamydia trachomatis DNA detected by campus executive director mediated amplification. [facility] Report Status Final [id number] [facility] 07/05/2006 11:1 3 EST 07/06/2006 11:13 EST Valorie Flores PARK AIDE MICROBIOLOGY - GE NERAL ORDERABLES Performing Organization Address City/[facility]/ZIP Co de Phone Number [facility] [address] [place] [address] documented in this encounter Visit Diagnoses Not on filedocumented in this encounter
--- OUTSIDE RECORDS SUMMARY | 2024-01-26 12:56 | XMS_ITS | Encounter Summary ---
Author Organization [facility] Address [address] [place] [address] Care Team Providers Care Student Counselor Name Role Phone Unavailable Primary Care Provider Unavailabl e Encounter Details Date Type Department Care Team (Latest Contact Info) Description 08/12/2005 10:57 EST - 08/12/2005 11:59 EST Hospital Encounter [facility] - Maple conversion [address] [place] [address] Vane Dobbs ANP Discharge Disposition: Auto Discharge Social History Tobacco [...] Contact Info) Description 01/31/2024 10:15 EDT Telemedicine [facility] Neurology - [address] [place] [address] [place], [place] [address] Med Maldonado MD 1 [facility], Level 2 [place] [phone] 08/31/2024 9:40 EST Appointment Naz Perez [address] [phone] documented as of this encounter Procedures Procedure Name Priority Date/Time Associated Diagnosis Comments GROUP A STREP CULTURE Routine 08/12/2005 11:51 EST RAPID STREP Routine 08/12/2005 11:27 EST documented in this encounter Results * CULTURE FOR GROUP A BETA STREPTOCOCCUS (08/12/2005 11:51 EST) Specimen Description Throat [facility] Result NO GROUP A BETA STREPTOCOCCI ISOLATED [facility] Report Status Final [id number] [facility] 08/12/2005 11:5 1 EST 08/12/2005 14:32 EST Vane Dobbs ANP MICROBIOLOGY - GENER AL ORDERABLES Performing Organization Address [facility] de Phone Number [facility] [address] [place] [address] * RAPID STREP (08/12/2005 11:27 EST) Rapid Strep A Screen Neg Assayed at [facility] s,S [place], [place] [facility] 08/12/2005 11:2 7 EST 08/12/2005 11:28 EST Vane Dobbs ANP MICROBIOLOGY - GENER AL ORDERABLES Performing Organization Address [facility] de Phone Number [facility] [address] [place] [address] documented in this encounter Visit Diagnoses Not on filedocumented in this encounter
--- OUTSIDE RECORDS SUMMARY | 2024-01-26 12:56 | XMS_ITS | Encounter Summary ---
Author Organization [facility] Address [address] [place] [address] Care Team Providers Care Sales Marketing Director Name Role Phone Unavailable Primary Care Provider Unavailabl e Encounter Details Date Type Department Care Team (Late st Contact Info) Description 09/13/2005 16:15 EST Hospital Encounter [facility] - Other [address] [place] [address] Jaqueline Price MD [address] [place], [place] [address] Social History Tobacco Use Types Packs/Day Years [...] Contact Info) Description 01/31/2024 10:15 EDT Telemedicine [facility] Neurology - [address] [place] 1 [place], [place] [address] Med Maldonado MD [address] [place] [address], Level 2 [place] [phone] 08/31/2024 9:40 EST Appointment Naz Perez [address] [phone] documented as of this encounter Visit Diagnoses Not on filedocumented in this encounter Additional Health Concerns Infection Onset Date Last Indicated Resolved Time R/O COVID-19 07/15/2020 07/15/2020 07/20/2020 22:1 7 EST documented as of this encounter
--- OUTSIDE RECORDS SUMMARY | 2024-01-26 12:56 | XMS_ITS | Encounter Summary ---
Author Organization [facility] Address [address] [place] [address] Care Team Providers Care Television Repair Teacher Name Role Phone Unavailable Primary Care Provider Unavailabl e Encounter Details Date Type Department Care Team (Late st Contact Info) Description 10/27/2001 9:49 EDT Hospital Encounter [facility] - Other [address] [place] [address] Jen Gupta MD Unknown, Provider, Social History [...] Telemedicine [facility] Neurology - [address] [place] 1 [place], [place] [address] Med Maldonado MD 1 [facility], Level 2 [place] [address] 08/31/2024 9:40 EST Appointment Naz Perez [facility] [address] [place] [address] documented as of this encounter Procedures Procedure Name Priority Date/Time Associated Diagnosis Comments GROUP A STREP CULTURE Routine 10/27/2001 13:40 EDT documented in this encounter Results * PHARYNGITIS CULTURE (10/27/2001 13:40 EDT) Specimen Description Throat [facility] Result NO GROUP A BETA STREPTOCOCCI ISOLATED [facility] Report Status Final [id number] [facility] 10/27/2001 13:4 0 EDT 10/27/2001 15:02 EDT Jen Gupta MD MICROBIOLOGY - GENER AL ORDERABLES [facility] [address] [place] [address] documented in this encounter Visit Diagnoses Not on filedocumented in this encounter Additional Health Concerns Infection Onset Date Last Indicated Resolved Time R/O COVID-19 07/15/2020 07/15/2020 07/20/2020 22:1 7 EST documented as of this encounter
--- OUTSIDE RECORDS SUMMARY | 2024-01-26 12:56 | XMS_ITS | Encounter Summary ---
Author Organization [facility] Address [address] [place] [address] Care Team Providers Care Precipitation Equipment Tender Name Role Phone Unavailable Primary Care Provider Unavailabl e Encounter Details Date Type Department Care Team (Late st Contact Info) Description 04/25/2000 15:21 EDT Hospital Encounter [facility] [address] [place] [address] Vanessa Dawn MD [address] Floor [place], [place] [address] Social History Tobacco Use Types Packs/Day Years [...] [facility] - [address] [place] 1 [place], [place] [phone] Med Maldonado MD 1 [facility], Level 2 [place] [address] 08/31/2024 9:40 EST Appointment Naz Chris [address] [address] documented as of this encounter Procedures Procedure Name Priority Date/Time Associated Diagnosis Comments HEMAGRAM & DIFF Routine 04/25/2000 15:21 EDT MONO-TEST Routine 04/25/2000 15:21 EDT documented in this encounter Results * MONO-TEST (04/25/2000 15:21 EDT) [place]-Test Neg NEG [facility] 04/25/2000 15:2 1 EDT 04/25/2000 15:24 EDT Vanessa Dawn MD CHEMISTRY & BLOOD GA S ORDERABLES [facility] [address] [place] [address] * (ABNORMAL) HEMAGRAM & DIFF (04/25/2000 15:21 EDT) WBC 5.44 4.0 - 12.4 K/cmm [facility] RBC 4.38 3.86 - 5.04 M/cmm [facility] Hemoglobin 13.0 11.6 - 15.2 gm/dl [facility] HCT 36.8 34.9 - 44.4 % [facility] MCV 84 81 - 98 fl [facility] MCH 29.8 26.7 - 33.3 pg [facility] MCHC 35.3 32.1 - 35.9 gm/dl [facility] PLT 259 141 - 320 K/cmm [facility] RDW-CV 12.7 11.7 - 14.6 % [facility] % Neutrophils 61.0 45.5 - 79.7 % [facility] % Lymphocytes 23.9 15.0 - 46.8 % [facility] % Monocytes 13.2(H) 1.8 - 12.0 % [facility] % Eosinophils 1.6 0.6 - 6.9 % [facility] % Basophils 0.3 0.2 - 1.4 % [facility] ABS Neutrophils 3.32 2.20 - 8.85 K/cmm [facility] ABS Lymphs 1.30 1.09 - 3.30 K/cmm [facility] ABS Monocytes 0.72 0.1 - 0.8 K/cmm [facility] ABS Eosinophils 0.08 0.03 - 0.61 K/cmm [facility] ABS Basophils 0.02 0.01 - 0.11 K/cmm [facility] Type of Diff: Automated [facility] 04/25/2000 15:2 1 EDT 04/25/2000 15:24 EDT Vanessa Dawn MD HISTORICAL LAB FOR S Q LOAD [facility] [address] [place] [address] documented in this encounter Visit Diagnoses Not on filedocumented in this encounter Additional Health Concerns Infection Onset Date Last Indicated Resolved Time R/O COVID-19 07/15/2020 07/15/2020 07/20/2020 22:1 7 EST documented as of this encounter
--- OUTSIDE RECORDS SUMMARY | 2024-01-26 12:56 | XMS_ITS | Encounter Summary ---
Author Organization [facility] [place] [address] Care Team Providers Care Forming Process Worker Name Role Phone Angelic Silva APRN Primary Care Provider [phone] Encounter Details Date Type Department Care Team (Late st Contact Info) Description 01/06/2022 Notes Only [place] [address] Geovani Pastor APRN [facility] [place] [address] Social History Tobacco Use Types Packs/Day Years Used Date Smoking Tobacco: Never Assessed Sex and Gender Information Value Date Recorded Sex Assigned at Not on file Gender Identity Not on file Sexual Orientation Not on file documented as of this encounter Progress Notes * Geovani Pastor APRN - 01/06/2022 2:45 PM EDT Unable to connect with patient to review her Guest Associate Survey and complete living donor education x 3attempts. At this time transplant episode will be closed. documented in this encounter Plan of Treatment Not on file documented as of this encounter Visit Diagnoses Not on filedocumented in this encounter Care Teams Forming Process Worker Relationship Specialty Start Date End Date Angelic Silva APRN [address] [place] [address] PCP - General Family Medicine 05/26/16 documented as of this encounter
--- OUTSIDE RECORDS SUMMARY | 2024-01-26 12:56 | XMS_ITS | Encounter Summary ---
Author Organization [facility] Address [address] [place] [address] Care Team Providers Care Home Staging Specialist Name Role Phone Unavailable Primary Care Provider Unavailabl e Encounter Details Date Type Department Care Team (Late st Contact Info) Description 06/29/2005 15:12 EST Hospital Encounter [place] [address] [place] [address] Lacy Sams MD [address] [place] [address], [address] [place] [address] Yenifer Walton MD [address] [place] [phone] Discharge Disposition: Auto Discharge Social History Tobacco [...] Contact Info) Description 01/31/2024 10:15 EDT Telemedicine [facility] Neurology - S [address] [address] Med Maldonado MD [address] [place] [address] 2 [place] [address] 08/31/2024 9:40 EST Appointment Naz Perez [address] [address] documented as of this encounter Procedures Procedure Name Priority Date/Time Associated Diagnosis Comments N. GONORRHOEAE AMPLIFIED PROBE Routine 06/29/2005 16:41 EST ZZCHLAMYDIA TRACHOMATIS AMPLIFIED PROBE Routine 06/29/2005 16:41 EST HEMAGRAM & DIFF Routine 06/29/2005 16:11 EST LIPASE Routine 06/29/2005 16:11 EST COMPREHENSIVE METABOLIC PANEL (CMP) Routine 06/29/2005 16:11 EST TEST, URINE Routine 06/29/2005 16:00 EST documented in this encounter Results * N. GONORRHOEAE AMPLIFIED PROBE (06/29/2005 16:41 EST) Result No Neisseria gonorrhoeae DNA detected by band reamer machine operator mediated amplification. [facility] Report Status Final [id number] [facility] Specimen Description Cervix [facility] 06/29/2005 16:4 1 EST 06/29/2005 19:13 EST Yenifer Walton MD MICROBIOLOGY - GENERAL ORDERABLES [facility] [address] [place] [address] * CHLAMYDIA TRACHOMATIS AMPLIFIED PROBE (06/29/2005 16:41 EST) Specimen Description Cervix [facility] Result No Chlamydia trachomatis DNA detected by band reamer machine operator mediated amplification. [facility] Report Status Final [id number] [facility] 06/29/2005 16:4 1 EST 06/29/2005 19:12 EST Yenifer Walton MD MICROBIOLOGY - GENERAL ORDERABLES Performing Organization Address City/[facility]/ZIP Co de Phone Number [facility] [address] [place] [address] * (ABNORMAL) HEMAGRAM & DIFF (06/29/2005 16:11 EST) WBC 9.40 4.0 - 12.4 K/cmm [facility] RBC 5.10(H) 3.86 - 5.04 M/cmm [facility] Hemoglobin 15.4(H) 11.6 - 15.2 gm/dl [facility] HCT 45.3(H) 34.9 - 44.4 % [facility] MCV 89 81 - 98 fl [facility] MCH 30.1 26.7 - 33.3 pg [facility] MCHC 33.9 32.1 - 35.9 gm/dl [facility] PLT 381(H) 141 - 320 K/cmm [facility] RDW-CV 12.3 11.7 - 14.6 % [facility] Comment:Performed at [facility], [place], [place] Neutrophils 72.0 45.5 - 79.7 % [facility] Lymphocytes 20.0 15.0 - 46.8 % [facility] Monocytes 8.0 1.8 - 12.0 % [facility] ABS Neutrophils 6.77 2.20 - 8.85 K/cmm [facility] ABS Lymphs 1.88 1.09 - 3.30 K/cmm [facility] ABS Monocytes 0.75 0.1 - 0.8 K/cmm [facility] Type of Diff: Manual [facility] RBC Morphology [facility] 06/29/2005 16:1 1 EST 06/29/2005 16:15 EST Yenifer Walton MD HISTORICAL L AB FOR SQ LOAD Performing Organization Address City/[facility] Co de Phone Number [facility] [address] [place] [address] * LIPASE (06/29/2005 16:11 EST) Lipase 58 0 - 250 U/L [facility] Comment:Performed at [facility] [place], [place] 06/29/2005 16:1 1 EST 06/29/2005 16:15 EST Yenifer Walton MD CHEMISTRY & BLOOD GAS ORDERABLES Performing Organization Address City/[facility] Co de Phone Number [facility] [address] [place] [address] * (ABNORMAL) COMPREHENSIVE METABOLIC PANEL (06/29/2005 16:11 EST) Pathologist [facility] Potassium 4.2 3.5 - 5.0 mEq/L [facility] Sodium 141 136 - 145 mEq/L [facility] Chloride 100 96 - 110 mEq/L [facility] CO2 28 24 - 32 mEq/L [facility] Total Alkaline Phosphatase 76 38 - 126 U/L [facility] Bilirubin, Total 0.7 0.2 - 1.3 mg/dl [facility] AST 24 15 - 46 U/L [facility] ALT 30 9 - 52 U/L [facility] Albumin 5.0(H) 3.4 - 4.9 g/dl [facility] Total Protein 8.8(H) 6.5 - 8.3 g/dl [facility] Creatinine 0.6(L) 0.7 - 1.5 mg/dl [facility] BUN 11 10 - 26 mg/dl [facility] Calcium 10.0 8.5 - 10.5 mg/dl [facility] Calculated Calcium 9.4 8.5 - 10.5 mg/dl [facility] Glucose, Serum 88 70 - 110 mg/dl [facility] Fasting? No Performed at [place] [facility] Albumin/Globulin Ratio 1.3 [facility] 06/29/2005 16:1 1 EST 06/29/2005 16:15 EST Yenifer Walton MD CHEMISTRY & BLOOD GAS ORDERABLES Performing Organization Address [facility] Co de Phone Number [facility] [address] [place] [address] * TEST, URINE (06/29/2005 16:00 EST) Result-Pregnan cy Test, Ur Neg Performed at [facility], [place], [place] [facility] 06/29/2005 16:0 0 EST 06/29/2005 16:04 EST Yenifer Walton MD URINALYSIS O RDERABLES Performing Organization Address [facility] de Phone Number [facility] [address] [place] [address] documented in this encounter Visit Diagnoses Not on filedocumented in this encounter
--- OUTSIDE RECORDS SUMMARY | 2024-01-26 12:56 | XMS_ITS | Encounter Summary ---
Author Organization [facility] Address [address] [place] [address] Care Team Providers Care Ride Attendant Name Role Phone None, Provider Primary Care Provider Unavailabl e Encounter Details Date Type Department Care Team (Late st Contact Info) Description 09/11/2005 Results Only [facility] - Maple conversion [address] [place] [address] Emergency, MD Candy Social History Tobacco Use Types Packs/Day Years Used Date Smoking Tobacco: Never Assessed Sex and Gender Information Value Date Recorded Sex Assigned at Not on file Gender Identity Female 02/24/2020 22:01 EDT Sexual Orientation Not on file documented as of this encounter Plan of Treatment Upcoming Encounters Date Type Department Care Team (Late st Contact Info) Description 01/31/2024 10:15 EDT Telemedicine [facility] Neurology - [address] [place] 1 [place], [place] [address] Med Maldonado MD [address] [place] [address], Level 2 [place] [phone] 08/31/2024 9:40 EST Appointment Naz Perez [address] [phone] documented as of this encounter Procedures Procedure Name Priority Date/Time Associated Diagnosis Comments CREATININE Routine 09/11/2005 22:01 EST HOLD BLUE TOP Routine 09/11/2005 22:01 EST HEPATITIS C AB W REFLEX TO HCV RNA BY PCR Routine 09/11/2005 22:01 EST HEPATITIS A TOTAL ANTIBODY W REFLEX Routine 09/11/2005 22:01 EST HEPATITIS B SURFACE ANTIBODY Routine 09/11/2005 22:01 EST COMPLETE BLOOD COUNT AND DIFFERENTIAL Routine 09/11/2005 22:01 EST BUN Routine 09/11/2005 22:01 EST LIPASE Routine 09/11/2005 22:01 EST GLUCOSE, SERUM Routine 09/11/2005 22:01 EST HEPATIC FUNCTION PANEL (ALB,ALK PHOS,ALT,AST,DBIL,TOT MARTHA,TOT PROT) Routine 09/11/2005 22:01 EST ELECTROLYTES Routine 09/11/2005 22:01 EST documented in this encounter Results * GLUCOSE, SERUM (09/11/2005 22:01 EST) Glucose, Serum 90 70 - 110 mg/dl [facility] 09/11/2005 22:0 1 EST 09/11/2005 22:02 EST Default Emergency MD CHEMISTRY & BLOOD G ORDERABLES [facility] [address] [place] [address] * (ABNORMAL) ELECTROLYTES (09/11/2005 22:01 EST) Sodium 137 136 - 145 mEq/L [facility] Potassium 3.4(L) 3.5 - 5.0 mEq/L [facility] Chloride 104 96 - 110 mEq/L [facility] CO2 27 24 - 32 mEq/L [facility] 09/11/2005 22:0 1 EST 09/11/2005 22:02 EST Default Emergency MD CHEMISTRY & BLOOD G ORDERABLES Performing Organization Address [facility] de Phone Number [facility] [address] [place] [address] * (ABNORMAL) LIVER FUNCTION TESTS (09/11/2005 22:01 EST) Albumin 3.4 3.4 - 4.9 g/dl [facility] Total Protein 6.5 6.5 - 8.3 g/dl [facility] Total Alkaline Phosphatase 120 38 - 126 U/L [facility] ALT 249(H) 9 - 52 U/L [facility] AST 220(H) 15 - 46 U/L [facility] Comment:Sample retested, res ult confirmed Unconjugated Bilirubin 1.6(H) 0.1 - 1.1 mg/dl [facility] Conjugated Bilirubin 0.0 0.0 - 0.3 mg/dl [facility] Bilirubin, Total 1.8(H) 0.2 - 1.3 mg/dl [facility] 09/11/2005 22:0 1 EST 09/11/2005 22:02 EST Default Emergency MD CHEMISTRY & BLOOD G ORDERABLES Performing Organization Address [facility] Phone Number [facility] [address] [place] [address] * LIPASE (09/11/2005 22:01 EST) Lipase 129 0 - 250 U/L [facility] 09/11/2005 22:0 1 EST 09/11/2005 22:02 EST Default Emergency MD CHEMISTRY & BLOOD G ORDERABLES Performing Organization Address [facility] de Phone Number [facility] [address] [place] [address] * HOLD BLUE TOP (09/11/2005 22:01 EST) Hold Blue Top Sample for coagulation will be discarded after 4 hours [facility] 09/11/2005 22:0 1 EST 09/11/2005 22:02 EST Default Emergency MD LAB INFO SERVICE AN D SUPPORT & PHONE RESULT Performing Organization Address [facility] Phone Number [facility] [address] [place] [address] * HEPATITIS C ANTIBODY (09/11/2005 22:01 EST) Hepatitis C Ab Neg [facility] 09/11/2005 22:0 1 EST 09/11/2005 22:02 EST Default Emergency MD CHEMISTRY & BLOOD G ORDERABLES Performing Organization Address [facility] Phone Number [facility] [address] [place] [address] * HEPATITIS B SURFACE ANTIBODY (09/11/2005 22:01 EST) Hepatitis B Surface Ab Pos [facility] 09/11/2005 22:0 1 EST 09/11/2005 22:02 EST Default Emergency MD CHEMISTRY & BLOOD G ORDERABLES Performing Organization Address [facility] Phone Number [facility] [address] [place] [address] * HEPATITIS A TOTAL ANTIBODY (09/11/2005 22:01 EST) Hep A Antibody Neg [facility] 09/11/2005 22:0 1 EST 09/11/2005 22:02 EST Default Emergency MD CHEMISTRY & BLOOD G ORDERABLES Performing Organization Address [facility] Phone Number [facility] [address] [place] [address] * (ABNORMAL) CREATININE (09/11/2005 22:01 EST) Creatinine 0.5(L) 0.7 - 1.5 mg/dl [facility] 09/11/2005 22:0 1 EST 09/11/2005 22:02 EST Default Emergency MD HISTORICAL LAB FOR SQ LOAD [facility] [address] [place] [address] * (ABNORMAL) HEMAGRAM AND DIFFERENTIAL (09/11/2005 22:01 EST) WBC 5.24 4.0 - 12.4 K/cmm [facility] RBC 3.71(L) 3.86 - 5.04 M/cmm [facility] Hemoglobin 11.4(L) 11.6 - 15.2 gm/dl [facility] HCT 31.2(L) 34.9 - 44.4 % [facility] MCV 84 81 - 98 fl [facility] MCH 30.6 26.7 - 33.3 pg [facility] MCHC 36.4(H) 32.1 - 35.9 gm/dl [facility] PLT 212 141 - 320 K/cmm [facility] RDW-CV 13.5 11.7 - 14.6 % [facility] % Neutrophils 73.9 45.5 - 79.7 % [facility] % Lymphocytes 15.8 15.0 - 46.8 % [facility] % Monocytes 8.5 1.8 - 12.0 % [facility] % Eosinophils 1.4 0.6 - 6.9 % [facility] % Basophils 0.4 0.2 - 1.4 % [facility] ABS Neutrophils 3.87 2.20 - 8.85 K/cmm [facility] ABS Lymphs 0.83(L) 1.09 - 3.30 K/cmm [facility] ABS Monocytes 0.45 0.1 - 0.8 K/cmm [facility] ABS Eosinophils 0.07 0.03 - 0.61 K/cmm [facility] ABS Basophils 0.02 0.01 - 0.11 K/cmm [facility] Type of Diff: Automated [facility] 09/11/2005 22:0 1 EST 09/11/2005 22:02 EST Default Emergency MD PACKAGES & DNA PROB E ORDERABLES Performing Organization Address City/[facility] Co de Phone Number [facility] [address] [place] [address] * (ABNORMAL) BUN (09/11/2005 22:01 EST) BUN 7(L) 10 - 26 mg/dl [facility] 09/11/2005 22:0 1 EST 09/11/2005 22:02 EST Default Emergency MD CHEMISTRY & BLOOD G ORDERABLES Performing Organization Address City/[facility] Co de Phone Number [facility] [address] [place] [address] documented in this encounter Visit Diagnoses Not on filedocumented in this encounter Care Teams Ride Attendant Relationship Specialty Start Date End Date None, Provider PCP - General 03/03/09 07/18/11 documented as of this encounter
--- OUTSIDE RECORDS SUMMARY | 2024-01-26 12:56 | XMS_ITS | Encounter Summary ---
[place] [address] Care Team Providers Care Baggage Handling Supervisor Name Role Phone Angelic Silva APRN Primary Care Provider [phone] Encounter Details Date Type Department Care Team (Late st Contact Info) Description 01/05/2022 Telephone [place] [phone] Geovani Pastor APRN [facility] [place] [address] Social History Tobacco Use Types Packs/Day Years Used Date Smoking Tobacco: Never Assessed Sex and Gender Information Value Date Recorded Sex Assigned at Not on file Gender Identity Not on file Sexual Orientation Not on file documented as of this encounter Miscellaneous Notes * Telephone Encounter - Geovani Pastor APRN - 01/05/2022 3:32 PM EDT 3rd attempt to talk to patient to review Tank House Operator survey and start the living donation education process. TC to patient today at 3:33 pm. I received her VM. I have left a message with my contact information and have requested a return call. documented in this encounter Plan of Treatment Not on file documented as of this encounter Visit Diagnoses Not on filedocumented in this encounter Care Teams Baggage Handling Supervisor Relationship Specialty Start Date End Date Angelic Silva APRN [address] [place] [address] PCP - General Family Medicine 05/26/16 documented as of this encounter
--- OUTSIDE RECORDS SUMMARY | 2024-01-26 12:56 | XMS_ITS | Encounter Summary ---
Author Organization [facility] Address [address] [place] [address] Care Team Providers Care Stevedore Dock Name Role Phone Unavailable Primary Care Provider Unavailabl e Encounter Details Date Type Department Care Team (Latest Contact Info) Description 12/13/2005 8:35 EDT - 12/13/2005 11:59 EDT Hospital Encounter [facility] [address] [place] [address] Bebe Liu FNP Discharge Disposition: Auto Discharge Social History Tobacco [...] Info) Description 01/31/2024 10:15 EDT Telemedicine [facility] Neurology - [address] [place] 1 [place], [place] [address] Med Maldonado MD 1 [facility], Level 2 [place] [phone] 08/31/2024 9:40 EST Appointment Naz Perez [address] [phone] documented as of this encounter Visit Diagnoses Not on filedocumented in this encounter
--- OUTSIDE RECORDS SUMMARY | 2024-01-26 12:56 | XMS_ITS | Encounter Summary ---
Author Organization [place] [id number] Care Team Providers Care Gas Line Servicer Name Role Phone Angelic Silva APRN Primary Care Provider [phone] Reason for Referral * Consultation (Routine) - Authorized Specialty Diagnoses / Procedures Referred By Tito hernandez Referred To Contact Otolaryngology Diagnoses Dizziness and giddiness Unspecified strabismus Angelic Silva APRN [address] [place] [address] [facility] Otolaryngology [address] [place] [phone] Referral ID Status Reason Start Date Expiration Date Visits Requested Visits Authorized [id number] Authorized Consult, Test & Treat PCP Updated and/or Approved 08/10/2023 08/09/2024 6 6 Encounter Details Date Type Department Care Team (Latest Contact Info) Description 08/10/2023 Transcribe Orders eDH Incoming Referrals [phone] Angelic Silva APRN [address] [place], [place] [address] Dizziness and giddiness; Unspecified strabismus Social History Tobacco Use Types Packs/Day Years Used Date Smoking Tobacco: Never Assessed Sex and Gender Information Value Date Recorded Sex Assigned at Not on file Gender Identity Not on file Sexual Orientation Not on file documented as of this encounter Plan of Treatment Scheduled Referrals Name Type Priority Associated Diagnoses Orde r Schedule Referral to ENT Outpatient Referral Routine Dizziness and giddiness Unspecified strabismus Ordered: 08/10/2023 documented as of this encounter Visit Diagnoses Diagnosis Dizziness and giddiness Unspecified strabismus documented in this encounter Care Teams Gas Line Servicer Relationship Specialty Start Date End Date Angelic Silva APRN [address] [place] [address] PCP - General Family Medicine 05/26/16 documented as of this encounter
--- OUTSIDE RECORDS SUMMARY | 2024-01-26 12:56 | XMS_ITS | Encounter Summary ---
Author Organization [facility] Address [address] [place] [address] Care Team Providers Care Professional Nurse Name Role Phone Unavailable Primary Care Provider Unavailabl e Encounter Details Date Type Department Care Team (Latest Contact Info) Description 05/27/1999 10:36 EST - 05/27/1999 11:59 EST Hospital Encounter [address] [address] Jen Gupta MD Discharge Disposition: Home-Health Care Svc Social History Tobacco Use Types Packs/Day Years Used Date Smoking Tobacco: Never Assessed Sex and Gender Information Value Date Recorded Sex Assigned at Not on file Gender Identity Female 02/24/2020 22:01 EDT Sexual Orientation Not on file documented as of this encounter Discharge Disposition Disposition Code Departure Means Destination Home-Health Care Svc documented in this encounter Plan of Treatment Upcoming Encounters Date Type Department Care Team (Late st Contact Info) Description 01/31/2024 10:15 EDT Telemedicine [facility] Neurology - [address] [place] [address] [place], [place] [phone] Med Maldonado MD [address] [place] [address], Level 2 [place] [phone] 08/31/2024 9:40 EST Appointment Naz Perez [address] [phone] documented as of this encounter Procedures Procedure Name Priority Date/Time Associated Diagnosis Comments CT PELVIS WO/CONTRAST Routine 05/27/1999 11:[address] ABDOMEN (LUNG BASES TO ILIAC CREST) WO CONTRAST Routine 05/27/1999 11:10 EST documented in this encounter Results * CT PELVIS WO/CONTRAST (05/27/1999 11:10 EST) Anatomical Region Laterality Modality Other 05/27/1999 11:1 0 EST Narrative 05/19/2009 8:16 EST RT BACKPAIN/RO STONE Procedure Note Jayro Acuña MD / Sandy Sims MD - 05/19/2009 RT BACKPAIN/RO STONE Jen Gupta MD [facility] [place] ORDERABLES * CT ABDOMEN WO CONTRAST (05/27/1999 11:10 EST) Anatomical Region Laterality Modality Other 05/27/1999 11:1 0 EST Narrative 05/19/2009 8:16 EST RT BACKPAIN/RO STONE EXAM: CT - Abdomen and Pelvis without I.V. or oral contrast - Renal Colic CT Protocol TECHNIQUE: Using neither oral nor intravenous contrast material, 5 mm sections were made from just above the kidneys through the urinary bladder. FINDINGS: The liver, spleen, pancreas, adrenal glands, kidneys, ureters, bladder, bowel, bones,and lung bases appear unremarkable. What is seen of the inferior portion of the liver and spleen appears unremarkable. What is seen of the pancreas, adrenal glands, bowel, and bones appear unremarkable. There is a trace of free fluid in the pelvis which is likely physiologic. IMPRESSION: Unremarkable exam. Marsha, a nurse at Dr. Jen Gupta's office, was informed of the findings immediately after the exam. (The attending radiologist has reviewed the images, and concurs with the findings described above.) Procedure Note Jayro Acuña MD / Sandy Sims MD - 05/19/2009 RT BACKPAIN/RO STONE EXAM: CT - Abdomen and Pelvis without I.V. or oral contrast - Renal Colic CT Protocol TECHNIQUE: Using neither oral nor intravenous contrast material, 5 mm sections were made from just above the kidneys through the urinary bladder. FINDINGS: The liver, spleen, pancreas, adrenal glands, kidneys, ureters, bladder, bowel, bones,and lung bases appear unremarkable. What is seen of the inferior portion of the liver and spleen appears unremarkable. What is seen of the pancreas, adrenal glands, bowel, and bones appear unremarkable. There is a trace of free fluid in the pelvis which is likely physiologic. IMPRESSION: Unremarkable exam. Marsha, a nurse at Dr. Jen Gupta's office, was informed of the findings immediately after the exam. (The attending radiologist has reviewed the images, and concurs with the findings described above.) Jen Gupta MD IMG CT ORDERABLES documented in this encounter Visit Diagnoses Not on filedocumented in this encounter
--- OUTSIDE RECORDS SUMMARY | 2024-01-26 12:56 | XMS_ITS | Encounter Summary ---
Author Organization [facility] Address [address] [place] [address] Care Team Providers Care Manager Web Name Role Phone None, Provider Primary Care Provider Unavailabl e Encounter Details Date Type Department Care Team (Late st Contact Info) Description 09/13/2005 Results Only [facility] - [place] 1 [place] [address] Jaqueline Price MD [address] [place] [id number] Social History Tobacco Use Types Packs/Day Years [...] 10:15 EDT Telemedicine [facility] Neurology - [facility] [place] 1 [place], [place] [address] Med Maldonado MD [address] [facility], Level 2 [place] [phone] 08/31/2024 9:40 EST Appointment Naz Perez [address] [address] documented as of this encounter Procedures Procedure Name Priority Date/Time Associated Diagnosis Comments URINE CHEMICAL (DIP) & SEDIMENT (MICRO) WITHOUT REFLEX TO CULTURE Routine 09/13/2005 15:43 EST HEMOGLOBINOPATHY AND THALASSEMIA EVALUATION Routine 09/13/2005 15:42 EST IBC Routine 09/13/2005 15:42 EST COMPLETE BLOOD COUNT AND DIFFERENTIAL Routine 09/13/2005 15:42 EST IRON Routine 09/13/2005 15:42 EST COMPREHENSIVE METABOLIC PANEL (CMP) Routine 09/13/2005 15:42 EST documented in this encounter Results * (ABNORMAL) UA WITH MICROSCOPIC (09/13/2005 15:43 EST) Color, UA [place] [facility] Clarity, UA Clear [facility] Glucose, UA Norm NORM [facility] Bilirubin, UA Small(A) NEG [facility] Ketones, UA Trace(A) NEG [facility] Specific Lucas, Urine 1.025 1.005 - 1.02 [facility] Blood, UA Neg NEG [facility] pH, UA 7.5 5.0 - 9.0 [facility] Protein, UA Neg NEG [facility] Urobilinogen, UA >8.0(A) NORM mg/dL [facility] Nitrite, UA Neg NEG [facility] Leuk Esterase Neg NEG [facility] WBC, UA 1 to 5 0 - 5 /HPF [facility] RBC, UA less than 1 0 - 5 /HPF [facility] Squam Epithel, UA Few(A) NS /HPF [facility] Renal Epithel, UA None seen NS /HPF [facility] Bacteria, UA Rare(A) NS /HPF [facility] Crystals, UA None seen /HPF [facility] Hyaline Casts, UA None seen /LPF [facility] UA Comment PROVIDER NOTIFIED BY LAB [facility] Mucus, UA MODERATE [facility] 09/13/2005 15:4 3 EST 09/13/2005 15:44 EST Jaqueline Price MD URINALYSIS O RDERABLES Performing Organization Address [facility] Co de Phone Number [facility] [address] [place] [address] * IRON (09/13/2005 15:42 EST) Iron 95 60 - 180 ug/dl [facility] 09/13/2005 15:4 2 EST 09/13/2005 15:43 EST Jaqueline Price MD CHEMISTRY & BLOOD GAS ORDERABLES Performing Organization Address [facility] de Phone Number [facility] [address] [place] [address] * IBC (09/13/2005 15:42 EST) Pathologist [facility] TIBC 378 225 - 425 ug/dl [facility] 09/13/2005 15:4 2 EST 09/13/2005 15:43 EST Jaqueline Price MD CHEMISTRY & BLOOD GAS ORDERABLES Performing Organization Address [facility] de Phone Number [facility] [address] [place] [address] * ELECTROPHORESIS, HGB (09/13/2005 15:42 EST) Pathologist [facility] Hemoglobin, [place] Interpretation: No abnormal hemoglobins identified. Interpreted by: Vlad Tanner MD, PhD Reference Range: No abnormal hemoglobins identified. [facility] 09/13/2005 15:4 2 EST 09/13/2005 15:43 EST Jaqueline Price MD CHEMISTRY & BLOOD GAS ORDERABLES Performing Organization Address [facility] de Phone Number [facility] [address] [place] [address] * (ABNORMAL) COMPREHENSIVE METABOLIC PANEL (09/13/2005 15:42 EST) Potassium 3.9 3.5 - 5.0 mEq/L [facility] Sodium 139 136 - 145 mEq/L [facility] Chloride 102 96 - 110 mEq/L [facility] CO2 32 24 - 32 mEq/L [facility] Total Alkaline Phosphatase 114 38 - 126 U/L [facility] Bilirubin, Total 1.3 0.2 - 1.3 mg/dl [facility] AST 148(H) 15 - 46 U/L [facility] ALT 214(H) 9 - 52 U/L [facility] Albumin 4.1 3.4 - 4.9 g/dl [facility] Total Protein 7.2 6.5 - 8.3 g/dl [facility] Creatinine 0.5(L) 0.7 - 1.5 mg/dl [facility] BUN 6(L) 10 - 26 mg/dl [facility] Calcium 8.8 8.5 - 10.5 mg/dl [facility] Calculated Calcium 9.1 8.5 - 10.5 mg/dl [facility] Glucose, Serum 89 70 - 110 mg/dl [facility] Fasting? No [facility] Albumin/Globulin Ratio 1.3 [facility] 09/13/2005 15:4 2 EST 09/13/2005 15:43 EST Jaqueline Price MD CHEMISTRY & BLOOD GAS ORDERABLES Performing Organization Address City/State/[facility] Co de Phone Number [facility] [address] [place] [address] * (ABNORMAL) HEMAGRAM AND DIFFERENTIAL (09/13/2005 15:42 EST) WBC 5.05 4.0 - 12.4 K/cmm [facility] RBC 4.16 3.86 - 5.04 M/cmm [facility] Hemoglobin 12.5 11.6 - 15.2 gm/dl [facility] HCT 35.3 34.9 - 44.4 % [facility] MCV 85 81 - 98 fl [facility] MCH 30.0 26.7 - 33.3 pg [facility] MCHC 35.4 32.1 - 35.9 gm/dl [facility] PLT 328(H) 141 - 320 K/cmm [facility] RDW-CV 13.1 11.7 - 14.6 % [facility] % Neutrophils 68.2 45.5 - 79.7 % [facility] % Lymphocytes 20.7 15.0 - 46.8 % [facility] % Monocytes 7.7 1.8 - 12.0 % [facility] % Eosinophils 3.2 0.6 - 6.9 % [facility] % Basophils 0.2 0.2 - 1.4 % [facility] ABS Neutrophils 3.44 2.20 - 8.85 K/cmm [facility] ABS Lymphs 1.04(L) 1.09 - 3.30 K/cmm [facility] ABS Monocytes 0.39 0.1 - 0.8 K/cmm [facility] ABS Eosinophils 0.16 0.03 - 0.61 K/cmm [facility] ABS Basophils 0.01 0.01 - 0.11 K/cmm [facility] Type of Diff: Automated [facility] 09/13/2005 15:4 2 EST 09/13/2005 15:43 EST Jaqueline Price MD PACKAGES & D NA PROBE ORDERABLES Performing Organization Address City/State/[facility] Co de Phone Number [facility] [address] [place] [address] documented in this encounter Visit Diagnoses Not on filedocumented in this encounter Care Teams Manager Web Relationship Specialty Start Date End Date None, Provider PCP - General 03/03/09 07/18/11 documented as of this encounter
--- OUTSIDE RECORDS SUMMARY | 2024-01-26 12:56 | XMS_ITS | Encounter Summary ---
Author Organization [facility] Address [address] [place] [address] Care Team Providers Care External Grinder Name Role Phone Unavailable Primary Care Provider Unavailabl e Encounter Details Date Type Department Care Team (Latest Contact Info) Description 05/29/2001 15:19 EST Hospital Encounter [facility] - Other [address] [place] [address] Barbie Felix MD Unknown, Provider, Discharge Disposition: Auto Discharge Social History Tobacco [...] [facility] Neurology - [address] [phone] Med Maldonado MD [address] [place] [address], Level 2 [place] [phone] 08/31/2024 9:40 EST Appointment Naz Perez [address] [address] documented as of this encounter Procedures Procedure Name Priority Date/Time Associated Diagnosis Comments N.GONORRHOEAE PROBE Routine 05/29/2001 1 2:00 EST CHLAMYDIA TRACHOMATIS PROBE Routine 05/29/2001 12:00 EST CYTOPATHOLOGY Routine 05/29/2001 0:00 EST documented in this encounter Results * N.GONORRHOEAE PROBE (05/29/2001 12:00 EST) Specimen Description Cervix [facility] Result No Neisseria gonorrhoeae DNA detected by summer law associate mediated amplification. [facility] Report Status Final [id number] [facility] 05/29/2001 12:0 0 EST 05/29/2001 17:10 EST Barbie Felix MD HISTORICAL LAB FOR S Q LOAD Performing Organization Address [facility] de Phone Number [facility] [address] [place] [address] * CHLAMYDIA TRACHOMATIS PROBE (05/29/2001 12:00 EST) Specimen Description Cervix [facility] Result No Chlamydia trachomatis DNA detected by summer law associate mediated amplification. [facility] Report Status Final [id number] [facility] 05/29/2001 12:0 0 EST 05/29/2001 17:10 EST Barbie Felix MD HISTORICAL LAB FOR S Q LOAD Performing Organization Address [facility] de Phone Number [facility] [address] [place] [address] * CYTOPATHOLOGY (05/29/2001 0:00 EST) Pathology Report: CYTOPATHOLOGY REPORT Reports generated via electronic interface contain original data; however they are lacking the format of the original report. Caution should be taken when reading/interpreti ng unformatted reports. Name: ? YOLETTE HOUSE ? Accession #: ? [id number] : ? 1980 (Age: 20) ??F ?Collect Date: ? 05/29/2001 Location: ? [facility] ? Receive Date: ? 05/30/2001 Provider: ?BARBIE FELIX MD Copy to: ? Specimen/Source: ?ThinPrep Pap Test, Endocervix Last Menstrual Period: ? 05/27/01 ? SPECIMEN ADEQUACY ? Satisfactory for evaluation. GENERAL CATEGORIZATION ? Benign Cellular Changes DESCRIPTIVE DIAGNOSIS ? Reactive cellular changes associated with inflammation present (includes repair). ? Document reviewed and electronically signed by: ? SAMINA LOMBARDO MD ? Report Date: ??06/07/2001 10:50 End of Report [facility] 05/29/2001 05/30/2001 Barbie Felix MD PATHOLOGY ORDERABLES Performing Organization Address City/State/[facility] Co de Phone Number [facility] [address] [place] [address] documented in this encounter Visit Diagnoses Not on filedocumented in this encounter
--- OUTSIDE RECORDS SUMMARY | 2024-01-26 12:56 | XMS_ITS | Encounter Summary ---
Author Organization [facility] Address [address] [place] [address] Care Team Providers Care Dish Carrier Name Role Phone None, Provider Primary Care Provider Unavailabl e Encounter Details Date Type Department Care Team (Late st Contact Info) Description 06/29/2005 Results Only [facility] - [address] [address] Mel Mullins MD [address] [place] [address] 1 [place] [phone] Social History Tobacco Use Types [...] 10:15 EDT Telemedicine [facility] Neurology - [address] [address] Med Maldonado MD [address] [place] [address] 2 [place] [phone] 08/31/2024 9:40 EST Appointment [address] [address] documented as of this encounter Procedures Procedure Name Priority Date/Time Associated Diagnosis Comments CYTOPATHOLOGY Routine 06/29/2005 0:00 EST documented in this encounter Results * CYTOPATHOLOGY (06/29/2005 0:00 EST) Pathology Report: CYTOPATHOLOGY REPORT Reports generated via electronic interface contain original data; however they are lacking the format of the original report. Caution should be taken when reading/interpreti ng unformatted reports. Name: ? YOLETTE HOUSE Ishan ? Accession #: ? [id number] : ? 1980 (Age: 24) ??F ?Collect Date: ? 06/29/2005 Location: ? [facility] ? Receive Date: ? 06/30/2005 Provider: ?MEL MULLINS MD Copy to: ? Specimen/Source: ?ThinPrep Pap Test, Cervix, processed on [employer] ThinPrep Imaging System, with manual evaluation Last Menstrual Period: ? 06/25/05 ? SPECIMEN ADEQUACY ? Satisfactory for Evaluation - transformation zone component present GENERAL CATEGORIZATION ? Epithelial Cell Abnormality INTERPRETATION ? Squamous Cell Abnormality - Atypical squamous cells, undetermined significance. EDUCATIONAL NOTES/RECOMMENDATI ONS ? [facility] recommends following the 2001 Consensus Guidelines for the Management of Women with Cervical Cytological Abnormalities (JIMENA,2002;287:212 0-9). Management algorithms have been distributed by [facility] and are available online at www.ASCCP.org. ? Document reviewed and electronically signed by: ? Farida Adams MD ? Report Date: ??07/09/2005 12:36 End of Report [facility] 06/29/2005 06/30/2005 Mel Mullins MD PATHOLOGY OR DERABLES Performing Organization Address City/State/[facility] Co de Phone Number [facility] [address] [place] [address] documented in this encounter Visit Diagnoses Not on filedocumented in this encounter Care Teams Dish Carrier Relationship Specialty Start Date End Date None, Provider PCP - General 03/03/09 07/18/11 documented as of this encounter
--- OUTSIDE RECORDS SUMMARY | 2024-01-26 12:56 | XMS_ITS | Encounter Summary ---
Author Organization [facility] Address [address] [place] [address] Care Team Providers Care Crossing Watchman Name Role Phone Unavailable Primary Care Provider Unavailabl e Encounter Details Date Type Department Care Team (Late st Contact Info) Description 04/24/2000 11:03 EDT Hospital Encounter [facility] - Other [address] [place] [address] Vanessa Dawn MD [address] 7[address] Floor [place], [place] [address] Unknown, ProviderMD Social History Tobacco Use Types Packs/Day Years [...] EDT Telemedicine [facility] Neurology - [address] [place] 1 [place], [place] [address] Med Maldonado MD [address] [place] [address], Level 2 [place] [phone] 08/31/2024 9:40 EST Appointment Naz Chris [address] [address] documented as of this encounter Procedures Procedure Name Priority Date/Time Associated Diagnosis Comments GROUP A STREP CULTURE Routine 04/24/2000 16:50 EDT documented in this encounter Results * CULTURE FOR GROUP A BETA STREPTOCOCCUS (04/24/2000 16:50 EDT) Specimen Description Throat [facility] Result NO GROUP A BETA STREPTOCOCCI ISOLATED [facility] Report Status Final [id number] [facility] 04/24/2000 16:5 0 EDT 04/24/2000 22:16 EDT Vanessa Dawn MD MICROBIOLOGY - GENER AL ORDERABLES [facility] [address] [place] [address] documented in this encounter Visit Diagnoses Not on filedocumented in this encounter Additional Health Concerns Infection Onset Date Last Indicated Resolved Time R/O COVID-19 07/15/2020 07/15/2020 07/20/2020 22:1 7 EST documented as of this encounter
--- OUTSIDE RECORDS SUMMARY | 2024-01-26 12:56 | XMS_ITS | Encounter Summary ---
Author Organization [facility] Address [address] [place] [address] Care Team Providers Care Real Estate Site Analyst Name Role Phone Unavailable Primary Care Provider Unavailabl e Encounter Details Date Type Department Care Team (Late st Contact Info) Description 06/03/2002 8:54 EST - 06/03/2002 11:59 EST Hospital Encounter [facility] [address] [place] [address] Valorie López NP [address] [facility] 4 [place] [phone] Discharge Disposition: Auto Discharge Social History Tobacco [...] [facility] - [address] [phone] Med Maldonado MD [address] [place] [address] 2 [place] [phone] 08/31/2024 9:40 [place] [address] documented as of this encounter Procedures Procedure Name Priority Date/Time Associated Diagnosis Comments CYTOPATHOLOGY Routine 06/03/2002 0:00 EST documented in this encounter Results * CYTOPATHOLOGY (06/03/2002 0:00 EST) Pathology Report: CYTOPATHOLOGY REPORT Reports generated via electronic interface contain original data; however they are lacking the format of the original report. Caution should be taken when reading/interpreti ng unformatted reports. Name: ? MICHAEL HOUSEILY Ishan ? Accession #: ? [id number] : ? 1980 (Age: 21) ??F ?Collect Date: ? 06/03/2002 Location: ? [facility] ? Receive Date: ? 06/04/2002 Provider: ?VALORIE LÓPEZ ANP Copy to: ? Specimen/Source: ?ThinPrep Pap Test, Cervix/Endocervix Last Menstrual Period: ? 05/15/02 Other: ? HPVA - HPV testing requested if ASC-US on the current ThinPrep Pap test. ? SPECIMEN ADEQUACY ? Satisfactory for Evaluation - transformation zone component present GENERAL CATEGORIZATION ? Negative for Intraepithelial Lesion or Malignancy ? Document reviewed and electronically signed by: ? GENESIS Vazquez(ASCP) ? Report Date: ??06/10/2002 07:04 End of Report [facility] 06/03/2002 06/04/2002 Valorie López NP PATHOLOGY ORDERAB LES Performing Organization Address City/State/[facility] Co de Phone Number [facility] [address] [place] [address] documented in this encounter Visit Diagnoses Not on filedocumented in this encounter
[2024-01-26 15:38] LABS: Calculated LDL 88 mg/dL (<100); Cholesterol 201 mg/dL (<200); HDL Cholesterol 39 mg/dL (40-60); Magnesium 1.9 mg/dL (1.8-2.4); Triglyceride 370 mg/dL (<150); Vitamin B12 493 pg/mL (193-986)
[2024-01-26 16:20] LABS: Hemoglobin A1C 5.4 % (<5.7)
[2024-01-26 23:20] LABS: Hepatitis C Ab w Rflx HCV PCR Negative (Negative)
[2024-01-26 23:29] LABS: HIV-1/2 Ag & Ab Screen Negative (Negative)
[2024-01-29 12:07] LABS: Syphilis Serology (RPR) Negative (Negative)
[2024-01-29 12:46] LABS: Chlamydia Result Negative (Negative); GC Result Negative (Negative)
== END 2024-01-26 12:27 | disposition home or self-care (01) ==
LOC: NCHCN 12:26
PROVIDERS: PCP Nurse Practitioner Family; Visit Provider Nurse Practitioner Family
DX: Z12.4 Encounter for screening for malignant neoplasm of cervix (principal); Z13.6 Encounter for screening for cardiovascular disorders; Z13.1 Encounter for screening for diabetes mellitus; K30 Functional dyspepsia
CPT/HCPCS: 80061; 86803; 87389; 87491; 87591; 88142; 82607; 83036; 83735; 86592; 87624

== ENCOUNTER 2024-11-15 15:06 | Outpatient (REF) | payer BC, SELFPAY ==
[2024-11-15 15:38] LABS: TSH (W/Ref FT4) 1.49 uIU/mL (0.36-3.74)
== END 2024-11-15 15:07 | disposition home or self-care (01) ==
LOC: NCHCN 15:06
PROVIDERS: PCP Nurse Practitioner Family; Visit Provider Nurse Practitioner Family
DX: R53.83 Other fatigue (principal)
CPT/HCPCS: 84443

== ENCOUNTER 2024-12-09 16:45 | Outpatient (REF) | payer BC, SELFPAY ==
[2024-12-09 21:22] LABS: Abs Immature Grans 0.02 10^3/uL (0.0-0.06); Absolute Basophil Count 0.06 10^3/uL (0.0-0.2); Absolute Eosinophil Count 0.13 10^3/uL (0.0-0.7); Absolute Lymphocyte Count 1.85 10^3/uL (1.2-3.4); Absolute Neutrophil Count 4.87 10^3/uL (1.2-6.7); Basophils % 0.8 %; Eosinophils % 1.7 %; HCT 37.2 % (36.0-46.0); HGB 13.2 g/dL (11.2-15.7); Immature Grans % 0.3 %; Lymphocytes % 24.6 %; MCH 30.6 pg (27.0-33.0); MCHC 35.5 % (32.0-36.0); MCV 86 fL (80-95); MPV 11.2 fL (8.0-11.0); Neutrophils % 64.6 %; Platelet Count 269 10^3/uL (130-400); RBC 4.32 10^6/uL (3.93-5.22); RDW 13.1 % (11.7-14.6); RDW-SD 40.5 fL; WBC 7.53 10^3/uL (4.4-10.8)
[2024-12-09 21:58] LABS: ALT 38 U/L (14-59); AST 24 U/L (15-37); Albumin 3.9 g/dL (3.4-5.0); Alkaline Phosphatase 101 U/L (46-116); Anion Gap 10.7 mmol/L (3-11); BUN 15 mg/dL (7-18); Bilirubin, Total 0.2 mg/dL (0.2-1.0); CO2 27.3 mmol/L (21.0-32.0); CREATININE 0.4 mg/dL (0.55-1.02); Calcium 9.5 mg/dL (8.5-10.1); Calculated LDL 107 mg/dL (<100); Chloride 102 mmol/L (98-107); Cholesterol 186 mg/dL (<200); Estimated GFR 125.86 (mL/min/1.73m2); Glucose 152 mg/dL (74-106); HDL Cholesterol 36 mg/dL (>or=50); Magnesium 1.7 mg/dL (1.8-2.4); Potassium 3.7 mmol/L (3.5-5.1); Sodium 140 mmol/L (136-145); Total Protein 7.5 g/dL (6.4-8.2); Triglyceride 217 mg/dL (<150); Vitamin B12 1859 pg/mL (193-986)
== END 2024-12-09 16:46 | disposition home or self-care (01) ==
LOC: NCHCN 16:45
PROVIDERS: PCP Nurse Practitioner Family; Visit Provider Nurse Practitioner Family
DX: K30 Functional dyspepsia (principal); I10 Essential (primary) hypertension; K76.0 Fatty (change of) liver, not elsewhere classified
CPT/HCPCS: 80053; 80061; 82607; 83735; 85025

== ENCOUNTER 2025-02-17 15:15 | Outpatient (REF) | payer BC, SELFPAY ==
[2025-02-17 21:20] LABS: Anion Gap 10.4 mmol/L (3-11); BUN 13 mg/dL (7-18); CO2 26.6 mmol/L (21.0-32.0); Calcium 9.1 mg/dL (8.5-10.1); Chloride 104 mmol/L (98-107); Estimated GFR 114.15 (mL/min/1.73m2); Glucose 145 mg/dL (74-106); Potassium 3.7 mmol/L (3.5-5.1); Sodium 141 mmol/L (136-145)
== END 2025-02-17 15:16 | disposition home or self-care (01) ==
LOC: NCHCN 15:15
PROVIDERS: PCP Nurse Practitioner Family; Visit Provider Nurse Practitioner Family
DX: N89.8 Other specified noninflammatory disorders of vagina (principal); I10 Essential (primary) hypertension
CPT/HCPCS: 80048; 87480; 87510; 87660